=== PATIENT | female | born 2000 | race Hispanic/Latino ===

== ENCOUNTER 2018-01-10 16:43 | Emergency (ER) | payer OTHER, SELFPAY ==
[2018-01-10] MEDS ORDERED: NA CHLORIDE 0.9% 1,000 ML ONE ×2 (17:29→21:49)
[2018-01-10] MEDS ORDERED: FENTANYL CITR 100 MCG/2 ML ONE ×2 (17:43→19:34)
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
[2018-01-10 18:42] LABS: ALT/SGPT 49 U/L (12-78); AST/SGOT 42 U/L (15-37); Alkaline Phosphatase 126 U/L (45-117); BUN Blood Urea Nitrogen 12 mg/dL (7-18); Bicarbonate 29 mmol/L (21-32); Bilirubin Direct 0.2 mg/dL (0-0.2); Bilirubin Total 0.7 mg/dL (0.2-1.0); Glucose Level 143 mg/dL (74-106); Lipase 410 U/L (73-393); Potassium 3.2 mmol/L (3.5-5.1); Protein, Total 7.6 g/dL (6.4-8.2); Sodium Level 133 mmol/L (136-145)
[2018-01-10 18:56] LABS: Absolute Lymphocytes (CBC) 1.4 K/uL (0.7-4.9); Absolute Monocytes 1.2 K/uL (0.1-1.3); Absolute Neutrophil 12.1 K/uL (1.8-8.0); Basophils % 0.2 % (0-1.3); Eosinophils % 0.2 % (0-4.4); Hematocrit 31.3 % (36.0-45.0); Lymphocytes % 9.3 % (15.3-44.8); MCV 88.7 fL (80-100); MPV 7.1 fL (7.6-11.3); Monocytes % 8.2 % (3.3-12.3); RBC Red Blood Cell Count 3.53 M/uL (3.86-4.86)
[2018-01-10] MEDS ORDERED: NS KCL 20MEQ 1,000 ML IV ONE (19:34)
[2018-01-10] MEDS ORDERED: PIPER/TAZO/NS 3.375gm 3.375 GM/100 ML BAG ONE (19:34)
[2018-01-10 19:42] LABS: Blood Morphology Comment NOT SEEN (NOT SEEN); Platelet Estimate INCR; Urine White Blood Cell Casts OK
[2018-01-10 20:16] LABS: Urine Bacteria <20 /HPF (<20); Urine Culture Reflex Order NOT NEEDED
[2018-01-10] MEDS ORDERED: LIDOCAINE VISCOUS 2% SOLN 15 ML UDC ONE (20:18)
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
[2018-01-10] MEDS ORDERED: ONDANSETRON 4 MG/2 ML VIAL ONE (20:35)
[2018-01-10 20:41] LABS: Urine Blood 2+ (NEG); Urine Glucose NEGATIVE (NEG); Urine Specific Gravity <1.005 (1.005-1.030)
[2018-01-10 20:42] LABS: Urine Protein TRACE (NEG); Urine pH 6.5 (5.0-7.0)
== END 2018-01-10 21:54 | disposition short-term general hospital (02) ==
LOC: ER 16:43
DX: K56.699 Other intestinal obstruction unspecified as to partial versus complete obstruction (principal); K63.1 Perforation of intestine (nontraumatic); W22.8XXA Striking against or struck by other objects, initial encounter; Y93.9 Activity, unspecified; Y92.9 Unspecified place or not applicable
CPT/HCPCS: 36415; 71260; 74177; 80048; 80076; 81003; 81015; 83605; 83690; 84145; 84703; 85025; 86850; 86900; 86901; 87040; 87077; 87086; 87088; 87186; 99284; J2405; J2543; J3010; J7030; Q9967

== ENCOUNTER 2020-09-01 20:41 | Emergency (ER) | payer OTHER, SELFPAY ==
--- OUTSIDE RECORDS SUMMARY | 2020-09-01 20:43 | XMS REPORT | Continuity of Care Document ---
:2000 Author Organization [facility] t Address [address] [place] [address] Care Team Providers Name Role Phone Priscilla Brice Attending Clinician [phone] Problems This patient has no known problems. Allergies, Adverse Reactions, Alerts This patient has no known allergies or adverse reactions. Medications This patient has no known medications. Procedures This patient has no known procedures. Encounters Start End Encounter Admission Attending Care Care Encounter Source Date/Time Date/Time Type Type Clinicians Facility Department ID 2020-08-27 2020-08-27 Telephone SHARON Vasquez [id number] 00:00:00 00:00:00 Priscilla Gray PERSONAL PROPERTY ASSESSOR [id number] [facility] [id number] MATERNAL [id number] & CHILD [address] [place] [address] Results This patient has no known results.
[2020-09-01 21:33] LABS: Urine Blood 1+ (Negative); Urine Glucose Negative (Negative); Urine Protein Negative (Negative); Urine Specific Gravity >=1.030 (1.005-1.030)
[2020-09-01 21:42] LABS: Absolute Lymphocytes (CBC) 1.6 K/uL (0.7-4.9); Basophils % 0.4 % (0-1.3); Hematocrit 40.2 % (36.0-45.0); Lymphocytes % 19.9 % (15.3-44.8); MPV 7.6 fL (7.6-11.3)
[2020-09-01 21:57] LABS: Urine Specific Gravity/Preg >1.030 (1.005-1.030)
[2020-09-01 22:23] LABS: BUN Blood Urea Nitrogen 6 mg/dL (7-18); Bicarbonate 26 mmol/L (21-32); Glucose Level 104 mg/dL (74-106); HCG, Quantitative 33070 mIU/mL (1-3); Potassium 3.4 mmol/L (3.5-5.1); Sodium Level 137 mmol/L (136-145)
[2020-09-01] MEDS ORDERED: NA CHLORIDE 0.9% 1,000 ML ONE (22:29)
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
[2020-09-01 23:30] VITALS: TEMP 99.2; O2SAT 100
[2020-09-01 23:31] VITALS: BP 113/76
--- NOTE | 2020-09-02 08:17 | RAD REPORT ---
EXAM DESCRIPTION: US - Transvaginal OB - 09/01/2020 11:01 pm CLINICAL HISTORY: VAGINAL BLEEDING, Preliminary findings provided at the time of the study COMPARISON: No comparisons FINDINGS: Single normal shaped intrauterine gestational sac identified. Cardiac activity seen at a r ate of 122 BPM. pole is identified with a crown-rump length corresponding to 7 weeks 1 day. Sma ll subchorionic hemorrhage is present. The crescent-shaped hemorrhage collection is grossly 1.5 x 1.1 x 0.4 cm. This size is not considered clinically significant. Cervical canal is closed. No blood or fluid in the cul de sac. Right ovary contains a 1.9 centimeter anechoic thin-walled cyst. No suspicious right ovarian or right adnexal mass. Nonvisualization of the left ovary due to bowel. No left adnexal mass. IMPRESSION: Single 7 week 1 day IUP. Calculated JILLIAN is 04/19/2021. Small non clinically significant 1.5 cm crescent-shaped subchorionic bleed.
== END 2020-09-01 23:17 | disposition home or self-care (01) ==
LOC: ER 20:41
DX: O20.0 Threatened abortion (principal); Z3A.01 Less than 8 weeks gestation of pregnancy
CPT/HCPCS: 36415; 76817; 80048; 81003; 81025; 84702; 85025; 86901; 96360; 99284; J7030

== ENCOUNTER 2020-10-03 22:31 | Emergency (ER) | payer OTHER ==
--- OUTSIDE RECORDS SUMMARY | 2020-10-03 22:34 | XMS REPORT | Continuity of Care Document ---
:2000 Author Organization [facility] t Address [address] [place] [address] Care Team Providers Name Role Phone Priscilla Brice Attending Clinician [phone] Problems This patient has no known problems. Allergies, Adverse Reactions, Alerts This patient has no known allergies or adverse reactions. Medications This patient has no known medications. Procedures This patient has no known procedures. Encounters Start End Encounter Admission Attending Care Care Encounter Source Date/Time Date/Time Type Type Clinicians Facility Department ID 2020-10-02 2020-10-02 Telephone SHARON Vasquez [id number] 00:00:00 00:00:00 Priscilla Gray [employer] [id number] [facility] [id number] MATERNAL [id number] & CHILD [address] [place] [address] Results This patient has no known results.
[2020-10-03 23:41] LABS: Absolute Lymphocytes (CBC) 2.1 K/uL (0.7-4.9); Basophils % 0.6 % (0-1.3); Hematocrit 40.7 % (36.0-45.0); Lymphocytes % 33.7 % (15.3-44.8); RBC Red Blood Cell Count 4.51 M/uL (3.86-4.86)
[2020-10-03 23:58] LABS: ALT/SGPT 16 U/L (12-78); AST/SGOT 12 U/L (15-37); Albumin 3.6 g/dL (3.4-5.0); Alkaline Phosphatase 89 U/L (45-117); BUN Blood Urea Nitrogen 10 mg/dL (7-18); Bicarbonate 27 mmol/L (21-32); Bilirubin Direct < 0.1 mg/dL (0-0.2); Bilirubin Total 0.2 mg/dL (0.2-1.0); Glucose Level 101 mg/dL (74-106); Lipase 117 U/L (73-393); Protein, Total 8.1 g/dL (6.4-8.2); Sodium Level 142 mmol/L (136-145)
[2020-10-04] MEDS ORDERED: NA CHLORIDE 0.9% 1,000 ML ONE (00:07)
[2020-10-04] MEDS ORDERED: MORPHINE 4 MG/ML SYR ONE ×2 (00:07→01:35)
[2020-10-04] MEDS ORDERED: ONDANSETRON 4 MG/2 ML VIAL ONE (00:07)
[2020-10-04 00:16] LABS: Urine Blood Trace-intact (Negative); Urine Glucose Negative (Negative); Urine Protein Negative (Negative); Urine Specific Gravity 1.025 (1.005-1.030); Urine pH 6.5 (5.0-7.0)
[2020-10-04 00:25] LABS: Urine Specific Gravity/Preg 1.025 (1.005-1.030)
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
[2020-10-04 02:06] VITALS: TEMP 98.6
[2020-10-04 02:09] VITALS: BP 129/94; O2SAT 97
--- NOTE | 2020-10-05 21:19 | RAD REPORT ---
EXAM DESCRIPTION: CT - Abdomen Pelvis W Contrast - 10/04/2020 6:24 am CLINICAL HISTORY: ABD PAIN. COMPARISON: CT of the chest, abdomen, and pelvis from January 10, 2018. TECHNIQUE: CT of the abdomen and pelvis was performed following intravenous administration of iodina mark contrast. Arterial phase images through the abdomen, and portal venous phase images through the a bdomen and pelvis were obtained. Oral contrast was not administered. Axial, coronal, and sagittal sof t tissue window reconstructions were created and sent to PACS. This exam was performed according to our departmental dose-optimization program, which includes autom ated exposure control, adjustment of the mA and/or kV according to patient size and/or use of iterati ve reconstruction technique. FINDINGS: Thoracic: No significant abnormality. Hepatobiliary: Hepatomegaly, measuring 20.4 cm in length. No concerning hepatic lesion identified. Th e hepatic and portal veins are patent. The gallbladder is unremarkable. No biliary ductal dilatation. Pancreas: Unremarkable. Spleen: Unremarkable. Gastrointestinal: Unremarkable appearance of a small bowel anastomosis in the right mid abdomen. No e vidence of bowel obstruction or perienteric inflammation. The appendix is normal. Adrenals: No abnormality identified in either adrenal gland. Renal: Small multifocal bilateral chronic renal cortical defects, similar to prior. No concerning par enchymal lesion in either kidney. No hydronephrosis or urolithiasis. Bladder/Reproductive: Unremarkable appearance of the urinary bladder by CT technique. Unremarkable CT appearance of the uterus and ovaries. Vascular/Lymphatics: No lymphadenopathy identified by CT size criteria. Abdominal aorta is normal in caliber. The major visceral vessels are patent. Musculoskeletal: No concerning osseous lesion identified. Thoracolumbar posterior fusion hardware. Tr ansitional lumbosacral vertebral body. Fluid / peritoneum: No significant free fluid. No free intraperitoneal air identified. IMPRESSION 1. No acute abnormality identified in the abdomen or pelvis by CT. 2. Unremarkable appearance of a small bowel anastomosis in the right mid abdomen. 3. Small chronic bilateral renal cortical defects. 4. Nonspecific hepatomegaly. Electronically signed by: Corry Hebert MD 10/04/2020 12:59 AM CDT Due to temporary technical issues with the PACS/Fluency reporting system, reports are being signed by the in house radiologists without review as a courtesy to insure prompt reporting. The interpreting radiologist is fully responsible for the content of the report.
== END 2020-10-04 01:41 | disposition home or self-care (01) ==
LOC: ER 22:31
DX: R10.12 Left upper quadrant pain (principal)
CPT/HCPCS: 85025; 80048; 36415; 81025; 80076; 81003; 83690; 74177; Q9967; 96374; 96375; 99284

== ENCOUNTER 2020-12-09 01:41 | Emergency (ER) | payer OTHER ==
--- OUTSIDE RECORDS SUMMARY | 2020-12-09 01:44 | XMS REPORT | Continuity of Care Document ---
:2000 Author Organization [facility] t Address [address] [place] [address] Care Team Providers Name Role Phone Amanda Yates Attending Clinician Problems This patient has no known problems. Allergies, Adverse Reactions, Alerts This patient has no known allergies or adverse reactions. Medications This patient has no known medications. Procedures This patient has no known procedures. Encounters Start End Encounter Admission Attending Care Care Encounter Source Date/Time Date/Time Type Type Clinicians Facility Department ID 2020-11-25 2020-11-25 Office SHARON Dyer [id number] 11:48:14 12:04:05 Visit Amanda Ricardo CREDIT SUPPORT SPECIALIST [id number] [facility] [id number] MATERNAL [id number] & CHILD [address] [place] [address] Results This patient has no known results.
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
[2020-12-09 04:50] VITALS: BP 112/81; TEMP 98.2; O2SAT 99
--- NOTE | 2020-12-09 08:20 | RAD REPORT ---
EXAM DESCRIPTION: Christen Single View12/09/2020 2:28 am CLINICAL HISTORY: Cough COMPARISON: none FINDINGS: The lungs appear clear of acute infiltrate. The heart is normal size IMPRESSION: No acute abnormalities displayed
== END 2020-12-09 04:45 | disposition home or self-care (01) ==
LOC: ER 01:41
DX: U07.1 COVID-19 (principal)
CPT/HCPCS: 71045; 99283; U0003

== ENCOUNTER 2021-04-13 16:12 | Inpatient (IN) | payer OTHER ==
--- OUTSIDE RECORDS SUMMARY | 2021-04-13 16:14 | XMS REPORT | Continuity of Care Document ---
:2000 Author Organization [facility] t Address [address] [place] [address] Care Team Providers Name Role Phone AMANDA PARKER Primary Care Physician Unavailable Mohan JIMENEZ MD Attending Clinician Davion Yates Attending Clinician Pierre DINERO Attending Clinician Unavailable Pierre DINERO Admitting Clinician Unavailable Payers Payer Name Policy Type Policy Number Effective Date Expiration Date S ource Advance Directives Directive Decision Effective Termination Comments Source Date Date Healthcare Agents on N/A [facility] FileNameRelationWood County HospitalthMy[facility] Agent Medical RelationshipCommunicationCritical Access Hospital EdilmadellaINTEGR[facility] Care [phone] (Home) [facility]Other[facility] [phone] (Mobile) Nadya FleminggenevieveAuntSecond Alternate Health Care [phone] (Mobile) Problems Condition Condition Condition Status Onset Resolution Last Treating Co mments Source Name Details Category Date Date Treatment Clinician Date Nexplanon Nexplanon Disease Active Uni vers in place in place 9 ity of 00:00: [address] Branch Abnormal Abnormal Disease Active Overview: Un shobha maternal maternal 5-12 Formattin ity of glucose glucose 00:00: g of this [place] tolerance, tolerance, 00 note Me dical antepartum antepartum might be Branch different from the original. Failed , pending 3hr gtt Susceptibl Susceptibl Disease Active Overview : Univers e to e to 5-12 Formattin ity of varicella varicella 00:00: [place] this [place] (non-immun (non-immun 00 note Me dical e), e), might be Branch currently currently different from the original. Address pp Obesity in Obesity in Disease Active 2019-04 U nivers 0-05 ity of 00:00: [place] 00 Medical Branch History of History of Disease Active U nivers ventral ventral 2-24 ity of hernia hernia 00:00: [place] repair repair 00 Medical Branch History of History of Disease Active U nivers lumbar lumbar 1-17 ity of surgery surgery 00:00: [place] 00 Medical Branch Three Three Disease Active Univers column column 9-13 ity of fracture fracture 00:00: [place] of lumbar of lumbar 00 Medi suleiman vertebra vertebra Branch Allergies, Adverse Reactions, Alerts Allergy Allergy Status Severity Reaction(s) Onset Inactive Treating Comm ents Source Name Type Date Date Clinician NO KNOWN Drug Active Univers ALLERGIE Class ity of S [facility] Social History Social Habit Start Date Stop Date Quantity Comments Source Exposure to Not sure [facility] SARS-CoV-2 (event) Medica l Branch Alcohol intake 2021-01-05 2021-01-05 0 /d [facility] 00:00:00 00:00:00 Medical Branch Sex Assigned At [birth year] [facility] 00:00:00 00:00:00 Medical Branch Smoking Status Start Date Stop Date Source Never smoker [facility] Medications Ordered Filled Start Stop Current Ordering Indication Dosage Frequency Signature Comments Components Source Medication Medication Date Date Medication? Clinician (SIG) Name Name lidocaine 2020-04- No [id number] 12mL 12 mL, U nivers 1% (PF) 06-05 Infiltrati ity o f (XYLOCAINE) 18:00: 16:48 on, ONCE, [place] injection 00 :00 1 dose, On Medi suleiman 12 mL Sat Branch 04/04/21 at 1200, Routine iohexoL 2020-04- No [id number] 15mL 15 mL, Uni vers (OMNIPAQUE 2-18 12-18 Intra-beto it y of 300-50 mL)) 17:00: 16:48 cular, [place] as injection 00 :00 ONCE, 1 Medical 15 mL dose, On Branch 04/04/21 at 1100, Routine metroNIDAZO Yes [id number] 500mg Take 1 Univers LE 500 mg 9-22 tablet by ity o f tablet 00:00: mouth 2 [place] 00 (two) Medical times Branch daily. azelastine Yes [id number] 1{spray Use 1 Univers 137 mcg 6-30 } [place] in ity of (0.1 %) 00:00: each [place] nasal spray 00 nostril 2 Med ical (two) Branch times daily. Use in each nostril as directed benzonatate Yes [id number] 100mg Take 1 Univers (TESSALON 6-30 capsule by ity of [place]) 100 00:00: mouth 3 [place] mg capsule 00 (three) Medica l times Branch daily. TRI-SPRINTE Yes 1{tbl} Take 1 Un shobha C 6-02 tablet by ity of 0.18/0.215/ 00:00: mouth [place] 0.25 mg-35 00 daily. Medical mcg (28) Branch per tablet Immunizations Ordered Immunization Filled Immunization Date Status Commen ts Source Name Name Influenza Virus 2020-01-21 Completed Universit y of Vaccine Quad .5 mL 00:00:00 [facility] IM 6+ MO Branch TDAP 2018-09-26 Completed University 00:00:00 [facility] Influenza Virus 2018-04-21 Completed Universit y of Vaccine Quad .5 mL 00:00:00 [facility] IM 6+ MO Branch HPV9 2016-02-13 Completed University 00:00:00 [facility] HPV 2015-01-17 Completed University 00:00:00 [facility] Meningococcal 2015-01-17 Completed University of Vaccine 00:00:00 [facility] Varicella 2011-03-01 Completed University (varivax)(chicken 00:00:00 [place] M edical pox) Branch HPV 2009-11-17 Completed University 00:00:00 [facility] Meningococcal 2009-11-17 Completed University of Vaccine 00:00:00 [facility] TDAP 2009-11-17 Completed University of 00:00:00 [facility] DTAP 2002-04-05 Completed University of 00:00:00 [facility] MMR 2002-04-05 Completed University of 00:00:00 [facility] Polio (IPV/OPV) 2002-04-05 Completed Universit y of 00:00:00 [facility] DTAP 2001-11-28 Completed University of 00:00:00 [facility] MMR 2001-11-28 Completed University of 00:00:00 [facility] Polio (IPV/OPV) 2001-11-28 Completed Universit y of 00:00:00 [facility] Varicella 2001-11-28 Completed University of (varivax)(chicken 00:00:00 [facility] [place] [facility] edical pox) Branch Varicella 2001-02-19 Completed University of (varivax)(chicken 00:00:00 [facility] [place] [facility] edical pox) Branch DTAP 1999-11-18 Completed University of 00:00:00 [facility] HIB 4 Dose Schedule 1999-11-18 Completed Unive rsity of 00:00:00 [facility] Hep B, Adol or Pedi 1999-11-18 Completed Unive rsity of Dosage 00:00:00 [facility] Polio (IPV/OPV) 1999-11-18 Completed Universit y of 00:00:00 [facility] DTAP 2000 Completed University of 00:00:00 [facility] HIB 4 Dose Schedule 1998 Completed Unive rsity of 00:00:00 [facility] Hep B, Adol or Pedi 2000 Completed Unive rsity of Dosage 00:00:00 [facility] Polio (IPV/OPV) 2000 Completed Universit y of 00:00:00 [facility] Hep B, Adol or Pedi 1998 Completed Unive rsity of Dosage 00:00:00 [facility] Procedures Procedure Date / Time Performed Performing Clinician Soursarah e [place] ARTHROGRAM HIP LEFT 2021-04-04 16:20:00 Mic Preston rsity of [facility] Encounters Start End Encounter Admission Attending Care Care Encounter Source Date/Time Date/Time Type Type Clinicians Facility Department ID 2021-04-04 2021-04-04 [facility] [id number] Univers 08:42:06 08:42:06 Encounter Mic SPECIALTY [id number] [facility] [id number] [facility] AT [id number] [place] gilberto JANE 3 [facility] 2020-11-25 2020-11-25 [facility] [id number] 11:48:14 12:04:05 Visit 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
[2021-04-13 20:30] LABS: Urine Blood Trace-intact (Negative); Urine Glucose Negative (Negative); Urine Protein Negative (Negative); Urine Specific Gravity 1.025 (1.005-1.030)
[2021-04-13 20:34] LABS: Absolute Lymphocytes (CBC) 1.5 K/uL (0.7-4.9); Hematocrit 44.3 % (36.0-45.0); Lymphocytes % 18.4 % (15.3-44.8); MPV 7.5 fL (7.6-11.3); RBC Red Blood Cell Count 4.93 M/uL (3.86-4.86)
[2021-04-13 20:55] LABS: ALT/SGPT 16 U/L (12-78); Alkaline Phosphatase 111 U/L (45-117); BUN Blood Urea Nitrogen 8 mg/dL (7-18); Bicarbonate 27 mmol/L (21-32); Glucose Level 100 mg/dL (74-106); Sodium Level 138 mmol/L (136-145)
[2021-04-13 21:16] LABS: AST/SGOT 10 U/L (15-37); Bilirubin Direct 0.1 mg/dL (0-0.2); Bilirubin Total 0.5 mg/dL (0.2-1.0); Lipase 66 U/L (73-393); Protein, Total 8.2 g/dL (6.4-8.2)
[2021-04-13 21:21] LABS: Urine Bacteria >50 /HPF (<20)
[2021-04-13 21:22] LABS: Calcium Oxalate Crystals- Ur FEW (NONE SEEN); Urine Amorphous Sediment 1+ /HPF (NONE SEEN); Urine Mucus HEAVY /HPF (NONE SEEN)
[2021-04-13] MEDS ORDERED: ONDANSETRON 4 MG/2 ML VIAL ONE (21:32)
[2021-04-13] MEDS ORDERED: FAMOTIDINE 20 MG/2 ML VIAL IV ONE (21:33)
[2021-04-13] MEDS ORDERED: NA CHLORIDE 0.9% 1,000 ML ONE (21:33)
[2021-04-13] MEDS ORDERED: DICYCLOMINE HCL 10 MG CAP ONE (21:33)
[2021-04-13 21:34] LABS: Urine Specific Gravity/Preg 1.025 (1.005-1.030)
--- NOTE | 2021-04-13 21:44 | RAD REPORT ---
EXAM DESCRIPTION: CTAbdomen Pelvis W Contrast - 04/13/2021 9:27 pm CLINICAL HISTORY: Abdominal pain. ABD PAIN COMPARISON: Abdomen Pelvis W Contrast dated 10/04/2020 TECHNIQUE: Biphasic CT imaging of the abdomen and pelvis was performed with 100 ml non-ionic IV cont rast. All CT scans are performed using dose optimization technique as appropriate and may include automated exposure control or mA/KV adjustment according to patient size. FINDINGS: The lung bases are clear. The liver, spleen, pancreas, adrenal glands and kidneys are within normal limits. Moderately dilated small bowel loops in the left upper and central abdomen compatible with moderate m echanical small-bowel obstruction. Point of transition appears to be present in lower left abdomen (i mage 51/102) which may be related to adhesions. The appendix is normal. No evidence of free air. No e vidence of significant lymphadenopathy. No suspicious bony findings. Hardware is present in the lumbar spine. IMPRESSION: Moderate mechanical small-bowel obstruction is present.
[2021-04-13] MEDS ORDERED: MORPHINE 4 MG/ML SYR ONE (21:56)
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
--- NOTE | 2021-04-13 23:28 | P.HP ---
Certification for Inpatient Patient admitted to: Inpatient With expected LOS: <2 Midnights Patient will require the following post-hospital care: None Practitioner: I am a practitioner with admitting privileges, knowledge of patient current condition, hospital course, and medical plan of care. Services: Services provided to patient in accordance with Admission requirements found in Title 42 Section 412.3 of the Code of Federal Regulations <Parveen Brand - Last Filed: 04/13/21 23:23> Patient History Date of Service: 04/13/21 Reason for admission: SBO History of Present Illness: Ms. Rust is a 21 yo F with history of small bowel reconstruction surgery and hernia repair presents with 3 days of intermittent abdominal cramps, nausea and vomiting. She says last night the pain markedly increased and she could barely walk. She says she has been slightly more constipated, and her last bowel movement was last night. Pain is worse with belching, and eating. She last ate this morning. CT AP IMPRESSION: Moderate mechanical small-bowel obstruction is present. - Past Medical/Surgical History Diabetic: No Past Medical History: Patient denies medical history -: small bowel reconstruction -: hernia repair -: spinal surgery Psychosocial/ Personal History: one son - Family History Family History: Reviewed- Non-Contributory - Social History Smoking Status: Never smoker Alcohol use: Yes CD- Drugs: No Caffeine use: No Place of Residence: Home <Parveen Brand - Last Filed: 04/13/21 23:23> Date of Service: 04/13/21 <Aryan Hooks - Last Filed: 04/15/21 10:34> Allergies No Known Allergies Allergy (Unverified 09/29/15 00:25) Review of Systems 10-point ROS is otherwise unremarkable General: Unremarkable Eyes: Unremarkable ENT: Unremarkable Respiratory: Unremarkable Cardiovascular: Unremarkable Gastrointestinal: Nausea, Vomiting, Abdominal Pain Genitourinary: Unremarkable Musculoskeletal: Unremarkable Integumentary: Unremarkable Neurological: Unremarkable Lymphatics: Unremarkable <Parveen Brand - Last Filed: 04/13/21 23:23> Physical Examination - Physical Exam General: Alert, In no apparent distress HEENT: Atraumatic, PERRLA, Mucous membr. moist/pink, EOMI, Sclerae nonicteric Neck: Supple, 2+ carotid pulse no bruit, No LAD, Without JVD or thyroid abnormality Respiratory: Clear to auscultation bilaterally, Normal air movement Cardiovascular: Regular rate/rhythm, Normal S1 S2 Gastrointestinal: Normal bowel sounds, Tenderness Musculoskeletal: No tenderness Integumentary: No rashes Neurological: Normal gait, Normal speech, Normal strength at 5/5 x4 extr, Normal tone, Normal affect Lymphatics: No axilla or inguinal lymphadenopathy - Studies Laboratory Data (last 24 hrs) 04/13/21 20:20: WBC 8.10, Hgb 14.8, Hct 44.3, Plt Count 325 04/13/21 20:20: Sodium 138, Potassium 4.0, BUN 8, Creatinine 0.65, Glucose 100, Total Bilirubin 0.5, AST 10 L, ALT 16, Alkaline Phosphatase 111, Lipase 66 L <Parveen Brand - Last Filed: 04/13/21 23:23> Assessment and Plan - Problems (Diagnosis) (1) SBO (small bowel obstruction) Current Visit: Yes Status: Acute - Plan surgery consulted NPO, continue IV fluids antiemetics and pain management as needed continue IV zosyn DVT ppx Discharge Plan: Home Plan to discharge in: 48 Hours - Advance Directives Does patient have a Living Will: No Does patient have a Durable POA for Healthcare: No - Code Status/Comfort Care Code Status Assessed: Yes (full code ) Critical Care: No Time Spent Managing Pts Care (In Minutes): 70 <Parveen Brand - Last Filed: 04/13/21 23:23> - Problems (Diagnosis) (1) History of resection of small bowel Current Visit: Yes Status: Acute (2) SBO (small bowel obstruction) Current Visit: Yes Status: Acute <Aryan Hooks - Last Filed: 04/15/21 10:34> Date of Service: 04/13/21 Subjective Agree with HPI as mentioned above Review of Systems 10-point ROS is otherwise unremarkable Physical Examination - Vital Signs Reviewed - Physical Exam General: Alert, In no apparent distress, Oriented x3 HEENT: Atraumatic, PERRLA, EOMI Neck: Supple, JVD not distended Respiratory: Clear to auscultation bilaterally, Normal air movement Cardiovascular: Regular rate/rhythm, Normal S1 S2 Gastrointestinal: Hypoactive, No tenderness, No masses, No guarding, Rebound Musculoskeletal: No clubbing, No swelling, No tenderness Integumentary: No rashes Neurological: Normal speech, Sensation intact, Cranial nerves 3-12 intact, Normal affect Lymphatics: No axilla or inguinal lymphadenopathy - Studies Medications List Reviewed: Yes Assessment & Plan - Problems (Diagnosis) (1) History of resection of small bowel Current Visit: Yes Status: Acute (2) SBO (small bowel obstruction) Current Visit: Yes Status: Acute - Plan Plan of care as mentioned below: 1. NPO 2. IV fluids 3. Pain control 4. Surgery consultation appreciated 5. Monitor labs 6. GI and DVT prophylaxis Discharge Plan: Home Plan to discharge in: Greater than 2 days - Advance Directives Does patient have a Living Will: No Does patient have a Durable POA for Healthcare: No - Code Status/Comfort Care Code Status Assessed: Yes Code Status: Full Code Critical Care: No Time Spent Managing PTS Care (In Minutes): 35 <Aryan Hooks - Last Filed: 04/15/21 10:34>
[2021-04-14] MEDS ORDERED: PIPERACIL/TAZO 3.375 GM VIAL IV ONE ×3 (00:17→16:56)
[2021-04-14] MEDS ORDERED: NA CHLORIDE 0.9% 100 ML ONE ×3 (00:18→16:57)
[2021-04-14] MEDS: NA CHLORIDE 0.9% 1,000 ML IV SCH ×2 (08:02→22:03)
[2021-04-14] MEDS ORDERED: ONDANSETRON 4 MG/2 ML VIAL IV PRN (08:02)
[2021-04-14 08:50] LABS: Absolute Lymphocytes (CBC) 1.1 K/uL (0.7-4.9); Hematocrit 40.8 % (36.0-45.0); Lymphocytes % 14.2 % (15.3-44.8); MPV 7.4 fL (7.6-11.3); RBC Red Blood Cell Count 4.51 M/uL (3.86-4.86)
[2021-04-14] MEDS ORDERED: NA CHLORIDE 0.9% 1,000 ML ONE (09:00)
[2021-04-14] MEDS: PIPER TAZO 3.375 GM in NA CHLORIDE 0.9% 100 ML IV SCH ×2 (09:00→16:57)
[2021-04-14] MEDS ORDERED: NA CHLORIDE 0.9% 0 ML ONE (09:01)
[2021-04-14 09:14] LABS: ALT/SGPT 13 U/L (12-78); AST/SGOT 7 U/L (15-37); Albumin 3.3 g/dL (3.4-5.0); Alkaline Phosphatase 95 U/L (45-117); BUN Blood Urea Nitrogen 8 mg/dL (7-18); Bicarbonate 25 mmol/L (21-32); Bilirubin Total 0.5 mg/dL (0.2-1.0); Glucose Level 91 mg/dL (74-106); Magnesium 2.2 mg/dL (1.8-2.4); Phosphorus 3.5 mg/dL (2.5-4.9); Potassium 3.9 mmol/L (3.5-5.1); Protein, Total 6.9 g/dL (6.4-8.2); Sodium Level 139 mmol/L (136-145)
[2021-04-14] MEDS ORDERED: PIPER TAZO 3.375 GM in NA CHLORIDE 0.9% 100 ML IV SCH (11:00)
[2021-04-14] MEDS ORDERED: MORPHINE 2 MG/ML SYR ONE (11:42)
[2021-04-14] MEDS ORDERED: ONDANSETRON 4 MG/2 ML VIAL ONE (11:42)
[2021-04-14] MEDS: MORPHINE 2 MG/ML SYR IV PRN ×2 (11:50→22:04)
[2021-04-15] MEDS ORDERED: PIPERACIL/TAZO 3.375 GM VIAL IV ONE ×2 (00:19→10:17)
[2021-04-15] MEDS ORDERED: NA CHLORIDE 0.9% 100 ML ONE (00:30)
[2021-04-15] MEDS: PIPER TAZO 3.375 GM in NA CHLORIDE 0.9% 100 ML IV SCH ×3 (00:33→17:14)
[2021-04-15 01:12] VITALS: BMI 33.5
[2021-04-15] MEDS: NA CHLORIDE 0.9% 1,000 ML IV SCH ×4 (04:02→21:15)
--- NOTE | 2021-04-15 10:34 | P.PN ---
Subjective Date of Service: 04/14/21 Patient continues to improve with no new complaints. Clinical symptoms are improving. She is having flatus. No nausea vomiting. If she continues to improve then we will start ice chips in the morning. Extensive abdominal surgery historically so will keep her NPO for now. Review of Systems 10-point ROS is otherwise unremarkable Physical Examination - Vital Signs Temperature: 97.6 F Blood Pressure: 105/56 Pulse: 81 Respirations: 20 Pulse Ox (%): 99 - Physical Exam General: Alert, In no apparent distress, Oriented x3 HEENT: Atraumatic, PERRLA, EOMI Neck: Supple, JVD not distended Respiratory: Clear to auscultation bilaterally, Normal air movement Cardiovascular: Regular rate/rhythm, Normal S1 S2 Gastrointestinal: Hypoactive, No tenderness, No masses, No guarding, Rebound Musculoskeletal: No clubbing, No swelling, No tenderness Integumentary: No rashes Neurological: Normal speech, Sensation intact, Cranial nerves 3-12 intact, Normal affect Lymphatics: No axilla or inguinal lymphadenopathy - Studies Medications List Reviewed: Yes Assessment & Plan - Problems (Diagnosis) (1) History of resection of small bowel Current Visit: Yes Status: Acute (2) SBO (small bowel obstruction) Current Visit: Yes Status: Acute - Plan Plan: 1. NPO 2. IV fluids 3. Pain control 4. Surgery consultation appreciated 5. Monitor labs 6. GI and DVT prophylaxis Discharge Plan: Home Plan to discharge in: Greater than 2 days - Advance Directives Does patient have a Living Will: No Does patient have a Durable POA for Healthcare: No - Code Status/Comfort Care Code Status Assessed: Yes Code Status: Full Code Critical Care: No Time Spent Managing PTS Care (In Minutes): 35
--- NOTE | 2021-04-15 10:38 | P.PN ---
Date of Service: 04/15/21 Subjective Will go ahead and start ice chips at this time. Review of Systems 10-point ROS is otherwise unremarkable Physical Examination - Vital Signs Reviewed - Physical Exam General: Alert, In no apparent distress, Oriented x3 Respiratory: Clear to auscultation bilaterally, Normal air movement Cardiovascular: Regular rate/rhythm, Normal S1 S2 Gastrointestinal: Hypoactive, No tenderness, No masses, No guarding, Rebound Musculoskeletal: No clubbing, No swelling, No tenderness Neurological: Normal speech, Sensation intact, Cranial nerves 3-12 intact, Normal affect Assessment & Plan - Problems (Diagnosis) (1) History of resection of small bowel Current Visit: Yes Status: Acute (2) SBO (small bowel obstruction) Current Visit: Yes Status: Acute - Plan Continue with plan of care as mentioned below: 1. Continue with ice chips 2. IV fluids 3. Pain control 4. Surgery consultation appreciated 5. Monitor labs 6. GI and DVT prophylaxis Discharge Plan: Home Plan to discharge in: Greater than 2 days - Advance Directives Does patient have a Living Will: No Does patient have a Durable POA for Healthcare: No - Code Status/Comfort Care Code Status Assessed: Yes Code Status: Full Code Critical Care: No Time Spent Managing PTS Care (In Minutes): 35
[2021-04-15 15:06] LABS: Urine Appearance CLEAR (Clear); Urine Bilirubin NEGATIVE (Negative); Urine Blood TRACE (Negative); Urine Color YELLOW (Yellow); Urine Glucose NEGATIVE (Negative); Urine Protein NEGATIVE (Negative); Urine Specific Gravity 1.025 (1.005-1.030)
[2021-04-15 15:49] LABS: Urine Bacteria <20 /HPF (<20); Urine Microscopic Reflex ORDER UMIC; Urine RBC <5 /HPF (NONE SEEN)
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
[2021-04-16] MEDS: NA CHLORIDE 0.9% 1,000 ML IV SCH ×3 (00:02→10:02)
[2021-04-16] MEDS: PIPER TAZO 3.375 GM in NA CHLORIDE 0.9% 100 ML IV SCH ×3 (00:16→16:02)
[2021-04-16 16:21] VITALS: BP 104/61; TEMP 97.6
[2021-04-16 16:50] VITALS: O2SAT 98
--- NOTE | 2021-04-16 16:56 | P.DS ---
Discharge Date: 04/16/21 Disposition: ROUTINE DISCHARGE Discharge Condition: GOOD Reason for Admission: SBO - Problems (1) History of resection of small bowel Current Visit: Yes Status: Acute (2) SBO (small bowel obstruction) Current Visit: Yes Status: Acute Brief History of Present Illness: Ms. Rust is a 21 yo F with history of small bowel reconstruction surgery and hernia repair presents with 3 days of intermittent abdominal cramps, nausea and vomiting. She says last night the pain markedly increased and she could barely walk. She says she has been slightly more constipated, and her last bowel movement was last night. Pain is worse with belching, and eating. She last ate this morning. Hospital Course: Patient has done well during hospital stay. Patient is tolerating diet. Patient is had multiple bowel movements. Patient is clinically improving. At this time, patient is stable for discharge home. Vital Signs/Physical Exam: Temp Pulse Resp BP Pulse Ox 97.6 F 70 16 104/61 98 04/16/21 16:00 04/16/21 16:00 04/16/21 16:00 04/16/21 16:00 04/16/21 16:00 General: Alert, In no apparent distress, Oriented x3 Laboratory Data at Discharge: WBC 7.80 K/uL (4.3-10.9) 04/14/21 08:32 Hgb 13.5 g/dL (12.0-15.0) 04/14/21 08:32 Hct 40.8 % (36.0-45.0) 04/14/21 08:32 Plt Count 303 K/uL (152-406) 04/14/21 08:32 Sodium 139 mmol/L (136-145) 04/14/21 08:32 Potassium 3.9 mmol/L (3.5-5.1) 04/14/21 08:32 BUN 8 mg/dL (7-18) 04/14/21 08:32 Creatinine 0.57 mg/dL (0.55-1.3) 04/14/21 08:32 Glucose 91 mg/dL (74-106) 04/14/21 08:32 Phosphorus 3.5 mg/dL (2.5-4.9) 04/14/21 08:32 Magnesium 2.2 mg/dL (1.8-2.4) 04/14/21 08:32 Total Bilirubin 0.5 mg/dL (0.2-1.0) 04/14/21 08:32 AST 7 U/L (15-37) L 04/14/21 08:32 ALT 13 U/L (12-78) 04/14/21 08:32 Alkaline Phosphatase 95 U/L (45-117) 04/14/21 08:32 Lipase 66 U/L (73-393) L 04/13/21 20:20 Home Medications: Cyclobenzaprine [Flexeril*] 10 mg PO PRN 04/15/21 Fluoxetine HCl 10 mg PO TID 04/15/21 Amox/K Clav [Augmentin 600 MG/5 ML Susp] 5 ml PO BID #100 ml 04/16/21 New Medications: Amox/K Clav [Augmentin 600 MG/5 ML Susp] 5 ml PO BID #100 ml Physician Discharge Instructions: OK TO DC IV AND DC HOME FOLLOW-UP WITH PRIMARY CARE PROVIDER IN 1-2 WEEKS FOLLOW-UP WITH General Surgery IN 1-2 WEEKS RETURN TO THE ER IF symptoms worsen CALL or TEXT DR. SCHMIDT AT [phone] IF ANY QUESTIONS REGARDING HOSPITAL STAY. PLEASE CALL THE FLOOR AT [phone] IF ANY MEDICATION OR NURSING QUESTIONS. Diet: AHA Activity: Fall precautions Followup: NONE,NONE [Primary Care Provider] - Time spent managing pt's care (in minutes): 35
== END 2021-04-16 08:35 | disposition home or self-care (01) | DRG 388 ==
LOC: ER 16:12 → ERHOLD 22:55 → 4TH 04-14 19:48
PROVIDERS: ADMIT Hospitalist; ATTEND Hospitalist
DX: K56.609 Unspecified intestinal obstruction, unspecified as to partial versus complete obstruction (principal); U07.1 COVID-19
CPT/HCPCS: 36415; 74177; 80048; 80053; 80076; 81003; 81015; 81025; 83690; 83735; 84100; 85025; 96365; 96375; 99285; J2270; J2405; J2543; J7030; J7050; Q9967; U0003

== ENCOUNTER 2021-05-10 06:28 | Inpatient (IN) | payer OTHER ==
--- OUTSIDE RECORDS SUMMARY | 2021-05-10 06:32 | XMS REPORT | Continuity of Care Document ---
:[address] [facility] t Address [address] [place] [address] Care Team Providers Name Role Phone Priscilla Brice Primary Care Physician Davion Yates Attending Clinician Payers Payer Name Policy Type Policy Number Effective Date Expiration Date S ource Advance Directives Directive Decision Effective Termination Comments Source Date Date Healthcare Agents on N/A [facility] ersity FileNameRelationshipHealthcare [facility] Agent Medical RelationshipCommunicationCannon Memorial HospitaltherFost[facility] Care [phone] (Home) [employer] AluisoOtherFirst [facility] [phone] (Mobile) Nadya FleminggenevieveAuntSecond [facility] [phone] (Mobile) Problems Condition Condition Condition Status Onset Resolution Last Treating Co mments Source Name Details Category Date Date Treatment Clinician Date Nexplanon Nexplanon Disease Active Uni vers in place in place 9-13 ity of 00:00: [place] [address] Medical Branch Abnormal Abnormal Disease Active Overview: Un shobha maternal maternal 5-12 Formattin ity of glucose glucose 00:00: g of this [place] tolerance, tolerance, 00 note Me dical antepartum [...] lumbar 1-17 ity of surgery surgery 00:00: [place] 00 Medical Branch Three Three Disease Active Univers column column 9-13 ity of fracture fracture 00:00: [place] of lumbar of lumbar 00 Medi suleiman vertebra vertebra Branch Allergies, Adverse Reactions, Alerts This patient has no known allergies or adverse reactions. Social History Social Habit Start Date Stop Date Quantity Comments Source Exposure to Not sure [facility] SARS-CoV-2 (event) Medica l Branch Alcohol intake 2021-04-30 2021-04-30 0 /d [facility] 00:00:00 00:00:00 Medical Branch Sex Assigned At [birth year] [facility] y of [place] 00:00:00 00:00:00 Medical Branch Smoking Status Start Date Stop Date Source Never smoker [facility] Branch Medications Ordered Filled Start Stop Current Ordering Indication Dosage Frequency Signature Comments Components Source Medication Medication Date Date Medication? Clinician (SIG) Name Name terconazole Yes [id number] 1{appli Insert 1 Univers 0.8 % 1-18 cator} Applicator ity of vaginal 00:00: into [place] cream 00 vagina at Medical bedtime. Branch metroNIDAZO Yes [id number] 500mg Take 1 Univers LE 500 mg 9-22 tablet by ity o f tablet 00:00: mouth 2 [place] 00 (two) Medical times Branch daily. azelastine Yes [id number] 1{spray Use 1 Univers 137 mcg 6-30 } [place] in ity of (0.1 %) 00:00: each [place] nasal spray 00 nostril 2 Med ical (two) Branch times daily. Use in each nostril as directed benzonatate Yes [id number] 100mg Take 1 Univers (TESSALON 6-30 capsule by itolivier of [place]) 100 00:00: mouth 3 [place] [...] y of Vaccine Quad .5 mL 00:00:00 [facility] IM 6+ MO Branch TDAP 2018-09-26 Completed University of 00:00:00 [facility] Influenza Virus 2018-04-21 Completed Universit y of Vaccine Quad .5 mL 00:00:00 [facility] IM 6+ MO Branch HPV9 2016-02-13 Completed University of 00:00:00 [facility] HPV 2015-01-17 Completed University of 00:00:00 [facility] Meningococcal 2015-01-17 Completed University of Vaccine 00:00:00 [facility] Varicella 2011-03-01 Completed University of (varivax)(chicken 00:00:00 [place] M edical pox) Branch HPV 2009-11-17 Completed University of 00:00:00 [facility] Meningococcal 2009-11-17 Completed University of Vaccine 00:00:00 [facility] TDAP 2009-11-17 Completed University of 00:00:00 [facility] DTAP 2002-04-05 Completed University of 00:00:00 [facility] MMR 2002-04-05 Completed University of 00:00:00 [facility] Polio (IPV/OPV) 2002-04-05 Completed Universit y of 00:00:00 [facility] DTAP 2001-11-28 Completed University of 00:00:00 [facility] MMR 2001-11-28 Completed University of 00:00:00 [facility] Polio (IPV/OPV) 2001-11-28 Completed Universit y of 00:00:00 [facility] Varicella 2001-11-28 Completed University of (varivax)(chicken 00:00:00 [place] M edical pox) Branch Varicella 2001-02-19 Completed University of (varivax)(chicken 00:00:00 [place] M edical pox) Branch DTAP 1999-11-18 Completed University of 00:00:00 [facility] HIB 4 Dose Schedule 1999-11-18 Completed Unive rsity of 00:00:00 [facility] Hep B, Adol or Pedi 1999-11-18 Completed Unive rsity of Dosage 00:00:00 [facility] Polio (IPV/OPV) 1999-11-18 Completed Universit y of 00:00:00 [facility] DTAP 1998 Completed University of 00:00:00 [facility] HIB 4 Dose Schedule 1998 Completed Unive rsity of 00:00:00 [facility] Hep B, Adol or Pedi 1998 Completed Unive rsity of Dosage 00:00:00 [facility] Polio (IPV/OPV) 1998 Completed Universit y of 00:00:00 [facility] Hep B, Adol or Pedi 1998 Completed Unive rsity of Dosage 00:00:00 [facility] Procedures This patient has no known procedures. 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 2020-11-25 2020-11-25 Office SHARON Dyer [id number] 11:48:14 12:04:05 Visit Amanda Ricardo MOISTURE METER OPERATOR [id number] [facility] [id number] MATERNAL [id number] & CHILD [address] [place] [address] Results This patient has no known results.
[2021-05-10] MEDS ORDERED: MORPHINE 4 MG/ML SYR ONE ×3 (07:18→12:02)
[2021-05-10] MEDS ORDERED: NA CHLORIDE 0.9% 1,000 ML ONE (07:18)
[2021-05-10] MEDS ORDERED: ONDANSETRON 4 MG/2 ML VIAL ONE ×2 (07:18→12:02)
[2021-05-10 07:46] LABS: Urine Blood Trace-intact (Negative); Urine Glucose Negative (Negative); Urine Protein Negative (Negative); Urine Specific Gravity 1.025 (1.005-1.030)
[2021-05-10 08:10] LABS: Absolute Lymphocytes (CBC) 2.2 K/uL (0.7-4.9); Hematocrit 42.6 % (36.0-45.0); Lymphocytes % 20.2 % (15.3-44.8); MPV 7.5 fL (7.6-11.3); RBC Red Blood Cell Count 4.74 M/uL (3.86-4.86)
[2021-05-10 08:24] LABS: ALT/SGPT 15 U/L (12-78); AST/SGOT 10 U/L (15-37); Albumin 3.8 g/dL (3.4-5.0); Alkaline Phosphatase 105 U/L (45-117); BUN Blood Urea Nitrogen 9 mg/dL (7-18); Bicarbonate 26 mmol/L (21-32); Bilirubin Direct 0.1 mg/dL (0-0.2); Bilirubin Total 0.5 mg/dL (0.2-1.0); Glucose Level 98 mg/dL (74-106); Lipase 92 U/L (73-393); Potassium 3.6 mmol/L (3.5-5.1); Protein, Total 7.9 g/dL (6.4-8.2); Sodium Level 135 mmol/L (136-145)
--- NOTE | 2021-05-10 08:29 | RAD REPORT ---
EXAM DESCRIPTION: CTAbdomen Pelvis W Contrast - 05/10/2021 8:04 am CLINICAL HISTORY: ABD PAIN COMPARISON: Abdomen Pelvis W Contrast dated 04/13/2021; Abdomen Pelvis W Contrast dated TECHNIQUE: CT of the abdomen and pelvis was performed. All CT scans are performed using dose optimization technique as appropriate and may include automated exposure control or mA/KV adjustment according to patient size. FINDINGS: Lower chest: No acute abnormality. Liver: No acute abnormality or suspicious lesions. Biliary: No biliary ductal dilatation. Stomach: No significant focal abnormality. Duodenum: No significant focal abnormality. Pancreas: No significant abnormality. Spleen: No significant abnormality. Adrenal: No suspicious lesions. Kidney/ureter: No hydronephrosis. No renal calculi. Retroperitoneum: No retroperitoneal adenopathy. Vascular: No aneurysm. Bowel: Small bowel obstruction again noted with transition point in the central abdomen. Changes of p rior small bowel resection. The small bowel measures up to 4.9 cm.. Peritoneum: No ascites or free air. Bladder: Trace bladder gas. Reproductive: No adnexal masses. Bones: No acute fracture. T12 through L3 fusion. Other: n/a IMPRESSION: Mechanical small bowel obstruction with transition point in the central abdomen likely e ither secondary to adhesions or Trace gas in the bladder. Correlate with urinalysis to exclude infection.
[2021-05-10 08:46] LABS: Urine Specific Gravity/Preg 1.025 (1.005-1.030)
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
[2021-05-10] MEDS ORDERED: ONDANSETRON 4 MG/2 ML VIAL IV PRN (09:05)
[2021-05-10] MEDS ORDERED: Mastisol Adhesive Liq ONE (09:48)
--- NOTE | 2021-05-10 11:39 | RAD REPORT ---
EXAM DESCRIPTION: RAD - Abdomen 1 View (KUB) - 05/10/2021 11:01 am CLINICAL HISTORY: ng placement COMPARISON: Abdomen Pelvis W Contrast dated 05/10/2021 FINDINGS: The NG tube tip overlies the stomach. Redemonstrated dilated small bowel. Fusion hardware in the spine. IMPRESSION: NG tube tip overlies the stomach in good position.
[2021-05-10 14:19] VITALS: BMI 34.4
[2021-05-10] MEDS: D5 0.45 NS 1,000 ML IV SCH ×3 (14:23→23:21)
[2021-05-10] MEDS: MORPHINE 4 MG/ML SYR IV PRN ×3 (14:37→23:20)
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
[2021-05-11] MEDS: MORPHINE 4 MG/ML SYR IV PRN ×3 (03:29→14:05)
[2021-05-11 05:49] LABS: Absolute Lymphocytes (CBC) 1.4 K/uL (0.7-4.9); Hematocrit 40.4 % (36.0-45.0); Lymphocytes % 18.9 % (15.3-44.8); MPV 7.1 fL (7.6-11.3); RBC Red Blood Cell Count 4.52 M/uL (3.86-4.86)
[2021-05-11 06:07] LABS: ALT/SGPT 14 U/L (12-78); AST/SGOT 7 U/L (15-37); Albumin 3.3 g/dL (3.4-5.0); Alkaline Phosphatase 92 U/L (45-117); BUN Blood Urea Nitrogen 5 mg/dL (7-18); Bicarbonate 27 mmol/L (21-32); Bilirubin Direct 0.1 mg/dL (0-0.2); Bilirubin Total 0.6 mg/dL (0.2-1.0); Glucose Level 134 mg/dL (74-106); Lipase 204 U/L (73-393); Potassium 3.9 mmol/L (3.5-5.1); Protein, Total 6.8 g/dL (6.4-8.2); Sodium Level 136 mmol/L (136-145)
[2021-05-11] MEDS: D5 0.45 NS 1,000 ML IV SCH ×3 (06:45→20:31)
[2021-05-11] MEDS ORDERED: MINERAL OIL 30 ML UCUP PO ONE ×2 (14:14→20:00)
--- NOTE | 2021-05-11 14:53 | P.PN ---
Date of Service: 05/11/21 S: Patient says she still has some abdominal pain today. Still has not passed any gas per rectum. No bowel movements. Cramping pain seems to be easing up, and pain medicine is controlling it. O: Abdomen appears softer than yesterday, not as firm or tympanic. A: Clinically patient appears to be improving PE: We will give patient some mineral oil via nasogastric tube today. Hopefully her partial small bowel obstruction will resolve. Will reassess again in a.m.
[2021-05-11] MEDS: MORPHINE 2 MG/ML SYR IV PRN ×2 (17:40→20:30)
[2021-05-12] MEDS: MORPHINE 2 MG/ML SYR IV PRN ×5 (00:30→19:44)
[2021-05-12] MEDS ORDERED: MINERAL OIL 30 ML UCUP PO ONE ×2 (02:00→15:16)
[2021-05-12] MEDS: DIAZEPAM 5 MG TABLET PO PRN ×3 (02:20→20:47)
[2021-05-12] MEDS: D5 0.45 NS 1,000 ML IV SCH ×4 (02:44→20:49)
[2021-05-12 04:33] VITALS: O2SAT 99
--- NOTE | 2021-05-12 14:12 | P.PN ---
Date of Service: 05/12/21 S: Today patient has been up to shower. Abdominal pain is a lot less today. Started to feel rumbles in her tummy. Still no bowel movements or flatus yet. O: Patient looks much better today, clinically much improved. Spontaneous and interactive. Complaining of some discomfort from a nasogastric tube. Abdomen is soft, no tenderness elicited on examination. A: Partial small bowel abscess bowel obstruction appears to be resolving PE: Mineral oil, DC NG tube. Ambulate. Patient may chew gum ice chips and popsicles. Anticipate discharge tomorrow.
[2021-05-13] MEDS: MORPHINE 2 MG/ML SYR IV PRN (04:09)
[2021-05-13] MEDS: D5 0.45 NS 1,000 ML IV SCH ×2 (04:17→10:00)
[2021-05-13] MEDS: ACETAMINOPHEN 500 MG TAB PO PRN ×2 (09:11→20:27)
--- NOTE | 2021-05-13 16:03 | P.PN ---
Date of Service: 05/13/21 S: Patient feels better today, looks better as well. No specific complaints. O: Clinically looks well, abdomen is soft, nontender minimal distention A: Partial small bowel obstruction appears to have resolved PE: We will try her on a regular diet today, if tolerated DC in a.m.
[2021-05-14 13:30] VITALS: BP 125/86; TEMP 97.7
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
== END 2021-05-14 15:27 | disposition home or self-care (01) | DRG 390 ==
LOC: ER 06:28 → ERHOLD 09:05 → 2ND 13:44 → OBSVTOIN 16:26
PROVIDERS: ADMIT Surgery; ATTEND Surgery
DX: K56.600 Partial intestinal obstruction, unspecified as to cause (principal); Z20.822 Contact with and (suspected) exposure to COVID-19
CPT/HCPCS: 36415; 74018; 74177; 80048; 80076; 81003; 81025; 82565; 83690; 85025; 96361; 96374; 96375; 99285; G0378; J2270; J2405; J7030; J7799; Q9967; U0003

== ENCOUNTER 2021-11-04 18:41 | Emergency (ER) | payer OTHER ==
[2021-11-04 19:48] LABS: Absolute Lymphocytes (CBC) 2.1 K/uL (0.7-4.9); Hematocrit 43.7 % (36.0-45.0); Lymphocytes % 27.8 % (15.3-44.8); MCV 89.7 fL (80-100); MPV 7.3 fL (7.6-11.3); RBC Red Blood Cell Count 4.88 M/uL (3.86-4.86)
[2021-11-04 19:57] LABS: Albumin 4.1 g/dL (3.4-5.0); Bilirubin Total 0.5 mg/dL (0.2-1.0); Potassium 4.1 mmol/L (3.5-5.1); Protein, Total 7.9 g/dL (6.4-8.2)
[2021-11-04 20:03] LABS: Urine Blood Trace-intact (Negative); Urine Glucose Negative (Negative); Urine Protein Negative (Negative)
--- NOTE | 2021-11-04 21:31 | RAD REPORT ---
EXAM DESCRIPTION: CTAbdomen Pelvis W Contrast - 11/04/2021 9:15 pm CLINICAL HISTORY: abd pain COMPARISON: Abdomen Pelvis W Contrast dated 05/10/2021; Abdomen Pelvis W Contrast dated ; Abdomen Pelvis W Contrast dated 10/04/2020 TECHNIQUE: CT of the abdomen and pelvis was performed. All CT scans are performed using dose optimization technique as appropriate and may include automated exposure control or mA/KV adjustment according to patient size. FINDINGS: Lower chest: No acute abnormality. Liver: No acute abnormality or suspicious lesions. Biliary: No biliary ductal dilatation. Stomach: No significant focal abnormality. Duodenum: No significant focal abnormality. Pancreas: No significant abnormality. Spleen: No significant abnormality. Adrenal: No suspicious lesions. Kidney/ureter: No hydronephrosis. Small bilateral renal calculi. Retroperitoneum: No retroperitoneal adenopathy. Vascular: No aneurysm. Bowel: Partial bowel resection.. Normal appendix. Peritoneum: No ascites or free air. Bladder: Grossly unremarkable. Reproductive: No adnexal masses. Bones: No acute fracture. T12 through L3 fusion. Other: n/a IMPRESSION: No acute intra-abdominal or pelvic finding. Normal appendix.
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
[2021-11-04] MEDS ORDERED: KETOROLAC 30 MG/ML INJ ONE (22:30)
[2021-11-04 23:19] VITALS: BP 129/102; TEMP 98.7; O2SAT 100
--- OUTSIDE RECORDS SUMMARY | 2021-11-05 15:46 | XMS REPORT | Continuity of Care Document ---
:2000 Author Organization [facility] t Address [address] [place] [address] Care Team Providers Name Role Phone JOCELYN RIOJAS Primary Care Physician Unavailable Alexy Santos MD Attending Clinician ALEXY SANTOS Attending Clinician Unavailable Davion Yates Attending Clinician Payers Payer Name Policy Type Policy Number Effective Date Expiration Date S ource Problems Condition Condition Condition Status Onset Resolution Last Treating Co mments Source Name Details Category Date Date Treatment Clinician Date Obesity Obesity Disease Active Univers (BMI (BMI 7-13 ity of 30-39.9) 30-39.9) 00:00: [place] 00 Medical Branch Postoperat Postoperat Disease Active U nivers adalgisa adalgisa - ity of dehisc[place] skin 00 Medical wound, wound, Branch initial initial encounter encounter Status Status Disease Active Univers post post 10-06 [place] sal[place] sal[place] 00 Me dical chris chris Branch Encounter Encounter Disease Active Uni vers for for 6- it[place] of Nexplanon [place] 00 [place] Encounter Encounter Disease Active Overview: Univers for tubal for tubal 09-16 Formattin i ty of ligation ligation 00:00: g of this [place] as 00 note Medical might be Branch different from the original. Added automatic ally from request for surgery [id number] Nexplanon Nexplanon Disease Active Uni vers in place in place 9-13 ity of 00:00: [place] 00 Medical Branch [...] Active Univers ALLERGIE Class ity of S [facility] Social History Social Habit Start Date Stop Date Quantity Comments Source History SDOH [facility] SDOH University o f Alcohol Std [place] [facility] Drinks Branch History SDOH University o f Alcohol Binge [facility] al Branch Exposure to 2021-10-18 2021-10-28 Not sure University of SARS-CoV-2 00:00:00 10:13:00 [facility] (event) Branch Alcohol intake 2021-10-28 2021-10-28 Current drinker of Un iversity of 00:00:00 00:00:00 alcohol (finding) [facility] [place] Tobacco use and 2021-10-28 2021-10-28 Smokeless tobacco Un iversity of exposure 00:00:00 00:00:00 non-user [facility] Alcohol Comment 2021-08-24 2021-08-24 occasionally Univers ity of 00:00:00 00:00:00 [facility] Sex Ass[birth year] At [birth year] Universit y of 00:00:00 00:00:00 [facility] Smoking Status Start Date Stop Date Source Never smoked tobacco [facility] Medications Ordered Filled Start Stop Current Ordering Indication Dosage Frequency Signature Comments Components Source Medication Medication Date Date Medication? Clinician (SIG) Name Name kong 2021- No Take by U nivers (GAS-X 7-13 07-13 mouth. ity of ORAL) 17:48: 00:00 [place] 35 :00 Medical Branch cyclobenzap Yes 10mg Take 10 mg Univers rine 10 mg 6-23 by mouth ity o f tablet 16:44: as needed [place] 32 for Muscle Medical Spasms. Branch FLUoxetine Yes 10mg Take 10 mg U nivers 10 mg 6-23 by mouth 3 ity of capsule 16:44: (three) [place] 32 times Medical daily. Branch acetaminoph 2021- No [id number] 650mg Take 2 Univers en 6-21 -13 tablets by ity of (TYLENOL) 00:00: 00:00 mouth [place] 325 mg 00 :00 every 6 Medical tablet (six) Branch hours as needed for Pain (scale 1-3) or Pain (scale 4-6). simethicone 2021- No [id number] 80mg Take 1 Univers 80 mg 10-06- tablet by ity of chewable 00:00: 00:00 mouth [place] tablet 00 :00 after Medical meals and Branch at bedtime. ibuprofen 2021- No [id number] 600mg Take 1 Univers 600 mg -05 11- tablet by ity of tablet 00:00: 00:00 mouth [place] 00 :00 every 6 Medical (six) Branch hours as needed for Pain (scale 1-3) or Pain (scale 4-6). Immunizations Ordered Immunization Filled Immunization Date Status Commen ts Source Name Name SARS-COV-2 COVID-19 2021-10-09 Completed Unive rsity of PFIZER NITA-SUCROSE 00:00:00 [place] [facility] VACCINE (GRE[place] TOP) Branch SARS-COV-2 COVID-19 2021-09-02 Completed Unive rsity of PFIZER NITA-SUCROSE 00:00:00 [place] [facility] VACCINE (GREENE TOP) Branch Influenza Virus 2020-01-21 Completed Universit y of Vaccine Quad .5 mL 00:00:00 [place] [facility] IM 6+ MO Branch TDAP 2018-09-26 Completed [facility] 00:00:00 [facility] Influenza Virus 2018-04-21 Completed Universit y of Vaccine Quad .5 mL 00:00:00 [place] [facility] IM 6+ MO Branch HPV9 2016-02-13 Completed University of 00:00:00 [facility] HPV 2015-01-17 Completed University of 00:00:00 [facility] Meningococcal 2015-01-17 Completed University of Vaccine 00:00:00 [facility] HPV 2009-11-17 Completed University of 00:00:00 [facility] Meningococcal 2009-11-17 Completed University of Vaccine 00:00:00 [facility] TDAP 2009-11-17 Completed University of 00:00:00 [facility] DTAP 2002-04-05 Completed University of 00:00:00 [facility] MMR 2002-04-05 Completed University of 00:00:00 [facility] Polio (IPV/OPV) 2002-04-05 Completed Universit y of 00:00:00 [facility] DTAP 2001-11-28 Completed University of 00:00:00 [facility] MMR 2001-11-28 Completed University of 00:00:00 [facility] Polio (IPV/OPV) 2001-11-28 Completed Universit y of 00:00:00 [facility] Varicella 2001-11-28 Completed University of (varivax)(chicken 00:00:00 [facility] edical pox) Branch Varicella 2001-02-19 Completed University of (varivax)(chicken 00:00:00 [facility] edical pox) Branch DTAP 1999-11-18 Completed University of 00:00:00 [facility] HIB 4 Dose Schedule 1999-11-18 Completed Unive rsity of 00:00:00 [facility] Hep B, Adol or Pedi 1999-11-18 Completed Unive rsity of Dosage 00:00:00 [facility] Polio (IPV/OPV) 1999-11-18 Completed Universit y of 00:00:00 [facility] DTAP 2000 Completed University of 00:00:00 [facility] HIB 4 Dose Schedule 2000 Completed Unive rsity of 00:00:00 [facility] Hep B, Adol or Pedi 2000 Completed Unive rsity of Dosage 00:00:00 [facility] Polio (IPV/OPV) 2000 Completed Universit y of 00:00:00 [facility] Hep B, Adol or Pedi 2000 Completed Unive rsity of Dosage 00:00:00 [facility] Vital Signs Vital Name Observation Time Observation Value Comments Source Systolic blood 2021-10-28 15:36:00 121 mm[Hg] Univer sity of pressure [facility] Diastolic blood 2021-10-28 15:36:00 81 mm[Hg] Unive rsity of pressure [facility] Heart rate 2021-10-28 15:35:00 73 /min Universi ty [facility] Body temperature 2021-10-28 15:35:00 37.22 Delfina Univ ersity of [facility] Body weight 2021-10-28 15:35:00 86.183 kg Universi ty [facility] BMI 2021-10-28 15:35:00 34.74 kg/m2 [facility] Procedures This patient has no known procedures. Encounters Start End Encounter Admission Attending Care Care Encounter Source Date/Time Date/Time Type Type Clinicians Facility Department ID 2021-10-28 2021-10-28 Office Henrietta Santos [facility] [id number] [facility] 10:00:00 11:33:53 Visit Alexy GUTIÉRREZ [id number] [facility] [id number] Shaun s PROFESSIO [id number] Fl dical [address] 2021-10-28 2021-10-28 Outpatient R HENRIETTA SANTOS [facility] [id number] [facility] 10:00:00 11:33:[facility] 2020-11-25 2020-11-25 Office Gomez [facility] [id number] 11:48:14 12:04:05 Visit Amanda Ricardo INTERNAL COMMUNICATIONS SPECIALIST [id number] [facility] [id number] MATERNAL [id number] & CHILD [address] [place] [address] [facility] Results This patient has no known results.
== END 2021-11-04 22:34 | disposition home or self-care (01) ==
LOC: ER 18:41
DX: R10.30 Lower abdominal pain, unspecified (principal)
CPT/HCPCS: 85025; 36415; 81025; 81003; 83690; 80053; 74177; Q9967

== ENCOUNTER 2022-03-29 19:46 | Emergency (ER) | payer OTHER ==
--- OUTSIDE RECORDS SUMMARY | 2022-03-29 19:55 | XMS REPORT | Continuity of Care Document ---
:2000 Author Organization [facility] t Address [address] [place] [address] [address] [place] [address] Care Team Providers Name Role Phone Jocelyn Brice Primary Care Physician [phone] Mara Olivarez Attending Clinician Lab, Ang - Db Attending Clinician Unavailable MARA CUEVAS Attending Clinician Unavailable Unknown, Attending Attending Clinician Unavailable UNKNOWN, ATTENDING Attending Clinician Unavailable LORENZA JARAMILLO Attending Clinician Unavailable Lorenza Klein Attending Clinician ROSA RILEY Attending Clinician Unavailable Rosa Hale Attending Clinician Doctor Unassigned, [place] Attending Clinician Unavailable , Adc Lab Attending Clinician Unavailable Henrietta Santos MD Attending Clinician HENRIETTA SANTOS Attending Clinician Unavailable LOKESH MISHRA Attending Clinician Unavailable AMANDA PARKER Attending Clinician Unavailable Lokesh Mishra MD Attending Clinician Vaccine, [facility] Family Medicine Attending Clinician Unavailable Moe Yo DO Attending Clinician MOE YO Attending Clinician Unavailable Rachel Sanchez RN Attending Clinician Unavailable Yvon Garcia CRNA Attending Clinician Jacy FOSTER, Phill Loera Attending Clinician Pob, [facility] Lab Main Attending Clinician Unavailable , Adc Lab Attending Clinician Unavailable BHARGAV SARABIA Attending Clinician Unavailable Christina WHCNP, Jocelyn Gray Attending Clinician [phone] HETAL HOOK Attending Clinician Unavailable Pea-Rmchp Nurse Vst, Fp Nrpt Pills Class Attending Clinician Unavailable Hetal Muniz Attending Clinician PHILL INFANTE Attending Clinician Unavailable Arelis JIMENEZ MD, John Attending Clinician Elena BILLPOSTER, Amanda Ricardo Attending Clinician Josey Koch MD Attending Clinician JOSEY KOCH Attending Clinician Unavailable JOCELYN VASQUEZ Attending Clinician Unavailable Provider, [facility] Attending Clinician Unavailable Evi Greer Attending Clinician EVI MYERS Attending Clinician Unavailable Lab, Ang-Rmchp Attending Clinician Unavailable China Fine RN Attending Clinician Unavailable Visit, Ang-Rmchp Nurse Attending Clinician Unavailable Vi FOSTER, Tony Martini Attending Clinician Kevin FOSTER, Jim Mckeon Attending Clinician NATA DINERO Attending Clinician Unavailable Erika De Leon MD Attending Clinician [phone] Gasper Morton MD Attending Clinician HENRIETTA SANTOS Admitting Clinician Unavailable Henrietta Santos MD Admitting Clinician Josey Koch MD Admitting Clinician NATA DINERO Admitting Clinician Unavailable Erika De Leon MD Admitting Clinician [phone] Payers Payer Name Policy Type Policy Number Effective Date Expiration Date S gal[place] MEDICAID PENDING PENDING 2020 00:00:00 Problems Condition Condition Condition Status Onset Resolution Last Treating Co mments Source Name Details Category Date Date Treatment Clinician Date Obesity Obesity Disease Active Univers (BMI (BMI 7-13 ity of 30-39.9) 30-39.9) 00:00: [place] 00 Medical Branch Postoperat Postoperat Disease Active U nivers adalgisa adalgisa 10-07 ity of dehisc[place] of skin 00 Medical wound, wound, Branch initial initial encounter encounter Status Status Disease Active [facility] post post 10-06 [place] bilateral [place] sal[place] salping[place] 00 Me dical chris chris Branch Encounter Encounter Disease Active Uni vers for for 10-06 [place] of Nexplanon [place] Encounter Encounter Disease Active Overview: Univers for tubal for tubal 09-16 Formattin i ty of ligation ligation 00:00: g of this [place] 00 note Medical might be Branch different from the original. Added automatic ally from request for surgery [id number] Nexplanon Nexplanon Disease Active Uni vers in [...] Active Univers ALLERGIE Class ity of [facility] [place] [facility] Social History Social Habit Start Date Stop Date Quantity Comments Source History [facility] o f Alcohol Frequency [place] [facility] History [facility] o f Alcohol Std [place] [facility] Drinks [facility] History [facility] University o f Alcohol Binge [place] [facility] Exposure to 2022-03-15 2022-03-25 Not sure University of SARS-CoV-2 00:00:00 11:20:00 [place] [facility] (event) Branch Alcohol intake 2022-03-25 2022-03-25 Current drinker of Un iversity of 00:00:00 00:00:00 alcohol (finding) [facility] Tobacco use and 2021-10-28 2021-10-28 Smokeless tobacco Un iversity of exposure 00:00:00 00:00:00 non-user [facility] Alcohol Comment 2021-08-24 2021-08-24 occasionally Univers ity of 00:00:00 00:00:00 [facility] Sex Assigned At [birth year] Universit y of 00:00:00 00:00:00 [facility] Smoking Status Start Date Stop Date Source Never smoked tobacco [facility] Medications Ordered Filled Start Stop Current Ordering Indication Dosage Frequency Signature Comments Components Source Medication Medication Date Date Medication? Clinician (SIG) Name Name fluconazole 2021-04- Yes [id number] 150mg Take 1 Univers (DIFLUCAN) 2-13 tablet by ity of 150 mg 00:00: 05:59 [place] :[place] now for 1 Medical dose. Branch fluconazole 2021-04- Yes [id number] 150mg Take 1 Univers (DIFLUCAN) 2-13 tablet by ity of 150 mg 00:00: 05:59 [place] 00 :00 now for 1 Medical dose. Branch fluconazole 2021-04- Yes [id number] 150mg Take 1 Univers (DIFLUCAN) 2-03 29-13 tablet by ity of 150 mg 00:00: 05:59 [place] tablet 00 :00 now for 1 Medical dose. Branch ampicillin 2021-04- Yes [id number] 500mg Take 1 Univers 500 mg 2-02 27-19 capsule by ity of capsule 00:00: 05:59 mouth [place] 00 :00 every 6 Medical (six) Branch hours for 7 days. ampicillin 2021-04- Yes [id number] 500mg Take 1 Univers 500 mg 2-02 27-19 capsule by ity of capsule 00:00: 05:59 mouth [place] 00 :00 every 6 Medical (six) Branch hours for 7 days. ampicillin 2021-04- Yes [id number] 500mg Take 1 Univers 500 mg 2-02 27-19 capsule by ity of capsule 00:00: 05:59 mouth [place] 00 :00 every 6 Medical (six) Branch hours for 7 days. ampicillin 2021-04- Yes [id number] 500mg Take 1 Univers 500 mg 05-2919 capsule by ity of capsule 00:00: 05:59 mouth [place] 00 :00 every 6 Medical (six) Branch hours for 7 days. ampicillin 2021-04- Yes [id number] 500mg Take 1 Univers 500 mg 2-02 27-19 capsule by ity of capsule 00:00: 05:59 mouth [place] 00 :00 every 6 Medical (six) Branch hours for 7 days. ampicillin 2021-04- Yes [id number] 500mg Take 1 Univers 500 mg 2-19 capsule by ity of capsule 00:00: 05:59 mouth [place] 00 :00 every 6 Medical (six) Branch hours for 7 days. triamcinolo 2021-04- No [id number] 40mg Univers ne 04-28 ity of acetonide 20:15: 19:31 [place] (KENALOG) 00 :00 Medical injection Branch 40 mg triamcinolo 2021-04- No [id number] 40mg 40 mg, Univers ne 04-28 Intramuscu ity of acetonide 20:15: 19:31 [place]CE, [place] (KENALOG) 00 :00 1 dose, On Medi suleiman injection Fri Branch 40 mg 02/26/22 at 1415, Routine triamcinolo 2021-04- No [id number] 40mg Univers ne 04-28 ity of acetonide 20:15: 19:31 [place] (KENALOG) 00 :00 Medical injection Branch 40 mg triamcinolo 2021-04- No [id number] 40mg 40 mg, Univers ne 04-28 Intramuscu ity of acetonide 20:15: 19:31 [place]CE, [place] (KENALOG) 00 :00 1 dose, On Medi suleiman injection Fri Branch 40 mg 02/26/22 at 1415, Routine triamcinolo 2021-04 Yes [id number] Apply to [facility] ne 04-28 area(s) 2 ity of acetonide 00:00: (two) [place] 0.1 % 00 times Medical ointment daily. Branch triamcinolo 2021-04 Yes [id number] Apply to [facility] ne 1-11 area(s) 2 ity of acetonide 00:00: (two) [place] 0.1 % 00 times Medical ointment daily. Branch [facility] 2021-04 Yes [id number] Apply to [facility] ne 1-11 area(s) 2 ity of acetonide 00:00: (two) [place] 0.1 % 00 times Medical ointment daily. Branch triamcinolo 2021-04 Yes [id number] Apply to [facility] ne 1-11 area(s) 2 ity of acetonide 00:00: (two) [place] 0.1 % 00 times Medical ointment daily. Branch triamcinolo 2021-04 Yes [id number] Apply to [facility] ne 1-11 area(s) 2 ity of acetonide 00:00: (two) [place] 0.1 % 00 times Medical ointment daily. [place] [facility] 2021-04 Yes [id number] Apply to [facility] ne 1-11 area(s) 2 ity of acetonide 00:00: (two) [place] 0.1 % 00 times Medical ointment daily. Branch [facility] 2021-04 Yes [id number] Apply to [facility] ne 1-11 area(s) 2 ity of acetonide 00:00: (two) [place] 0.1 % 00 times Medical ointment daily. [place] [facility] 2021-04 Yes [id number] Apply to [facility] ne 1-11 area(s) 2 ity of acetonide 00:00: (two) [place] 0.1 % 00 times Medical ointment daily. Branch triamcinolo 2021-04 Yes [id number] Apply to [facility] ne 1-11 area(s) 2 ity of acetonide 00:00: (two) [place] 0.1 % 00 times Medical ointment daily. Branch triamcinolo 2021-04 Yes [id number] Apply to [facility] ne 1-11 area(s) 2 ity of acetonide 00:00: (two) [place] 0.1 % 00 times Medical ointment daily. Branch predniSONE 2021-04- Yes [id number] 40mg Take 2 Univers 20 mg 04-28 11-17 tablets by ity of tablet 00:00: 05:59 mouth in [place] 00 :00 the Medical morning Branch for 5 days. predniSONE 2021-04- Yes [id number] 40mg Take 2 Univers 20 mg 04-28 tablets by ity of tablet 00:00: 05:59 mouth in [place] 00 :00 the Medical morning Branch for 5 days. metroNIDAZO 2021-04- Yes [id number] 500mg Take 1 Univers LE (FLAGYL) 04-26 tablet by it y of 500 mg 00:00: 05:59 mouth [place] tablet 00 :00 every 12 Medical (twelve) Branch hours for 7 days. metroNIDAZO 2021-04- Yes [id number] 500mg Take 1 Univers LE (FLAGYL) 04-26 tablet by it y of 500 mg 00:00: 05:59 mouth [place] tablet 00 :00 every 12 Medical (twelve) Branch hours for 7 days. metroNIDAZO 2021-04- Yes [id number] 500mg Take 1 Univers LE (FLAGYL) 04-26 tablet by it y of 500 mg 00:00: 05:59 mouth [place] tablet 00 :00 every 12 Medical ([facility]) Branch hours for 7 days. fluconazole 2021-04- Yes [id number] 150mg Take 1 Univers (DIFLUCAN) 04-26 tablet by ity of 150 mg 00:00: 05:59 mouth [place] tablet 00 :00 every 72 Medical (seventy-t Branch wo) hours for 2 doses. fluconazole 2021-04- Yes [id number] 150mg Take 1 Univers (DIFLUCAN) 04-26 tablet by ity of 150 mg 00:00: 05:59 mouth [place] tablet 00 :00 every 72 Medical (seventy-t Branch wo) hours for 2 doses. fluconazole 2021-04- Yes [id number] 150mg Take 1 Univers (DIFLUCAN) 04-26 tablet by ity of 150 mg 00:00: 05:59 mouth [place] tablet 00 :00 every 72 Medical (seventy-t Branch wo) hours for 2 doses. Nitrofurant 2021-04- Yes [id number] 100mg Take 1 Univers oin&Nit. 04-24 capsule by ity of Macrocryst 00:00: 05:59 [place] in [place] (MACROBID) 00 :00 the Medical 100 mg morning Branch capsule and 1 capsule in the evening. Take with meals. Do all this for 5 days. Nitrofurant 2021-04- Yes [id number] 100mg Take 1 Univers oin&Nit. 04-24 capsule by ity of Macrocryst 00:00: 05:59 [place] (MACROBID) 00 :00 the Medical 100 mg morning Branch capsule and 1 capsule in the evening. Take with meals. Do all this for 5 days. Nitrofurant 2021-04- Yes [id number] 100mg Take 1 Univers oin&Nit. 04-24 capsule by ity of Macrocryst 00:00: 05:59 mouth [place] (MACROBID) 00 :00 the Medical 100 mg morning Branch capsule and 1 capsule in the evening. Take with meals. Do all this for 5 days. Nitrofurant 2021-04- Yes [id number] 100mg Take 1 Univers oin&Nit. 04-24 capsule by ity of Macrocryst 00:00: 05:59 mouth [place] (MACROBID) 00 :00 the Medical 100 mg morning Branch capsule and 1 capsule in the evening. Take with meals. Do all this for 5 days. Nitrofurant 2021-04- Yes [id number] 100mg Take 1 Univers oin&Nit. 04-24 capsule by ity of Macrocryst 00:00: 05:59 mouth [place] (MACROBID) 00 :00 the Medical 100 mg morning Branch capsule and 1 capsule in the evening. Take with meals. Do all this for 5 days. simethicone 2021- No Take by Un shobha (GAS-X 10-28-13 mouth. ity of ORAL) 17:48: 00:00 [place] 35 :00 Medical Branch cyclobenzap 2021-0 Yes 10mg Take 10 mg Univers rine 10 mg 6-23 by mouth ity o f tablet 16:44: as needed [place] 32 for Muscle Medical Spasms. Branch FLUoxetine 2021-0 Yes 10mg Take 10 mg U nivers 10 mg 6-23 by mouth 3 ity of capsule 16:44: (three) [place] 32 times Medical daily. Branch cyclobenzap 2021-0 Yes 10mg Take 10 mg Univers rine 10 mg 6-23 by mouth ity o f tablet 16:44: as needed [place] 32 for Muscle Medical Spasms. Branch FLUoxetine 2022-0 Yes 10mg Take 10 mg U nivers 10 mg 6-23 by mouth 3 ity of capsule 16:44: (three) [place] 32 times Medical daily. Branch cyclobenzap 2022-0 Yes 10mg Take 10 mg Univers rine 10 mg 6-23 by mouth ity o f tablet 16:44: as needed [place] 32 for Muscle Medical Spasms. Branch FLUoxetine 2022-0 Yes 10mg Take 10 mg U nivers 10 mg 6-23 by mouth 3 ity of capsule 16:44: (three) [place] 32 times Medical daily. Branch cyclobenzap 2022-0 Yes 10mg Take 10 mg Univers rine 10 mg 6-23 by mouth ity o f tablet 16:44: as needed [place] 32 for Muscle Medical Spasms. Branch FLUoxetine 2022-0 Yes 10mg Take 10 mg U nivers 10 mg 6-23 by mouth 3 ity of capsule 16:44: (three) [place] 32 times Medical daily. Branch cyclobenzap 2022-0 Yes 10mg Take 10 mg Univers rine 10 mg 6-23 by mouth ity o f tablet 16:44: as needed [place] 32 for Muscle Medical Spasms. Branch FLUoxetine 2022-0 Yes 10mg Take 10 mg U nivers 10 mg 6-23 by mouth 3 ity of capsule 16:44: (three) [place] 32 times Medical daily. Branch cyclobenzap 2022-0 Yes 10mg Take 10 mg Univers rine 10 mg 6-23 by mouth ity o f tablet 16:44: as needed [place] 32 for Muscle Medical Spasms. Branch FLUoxetine 2022-0 Yes 10mg Take 10 mg U nivers 10 mg 6-23 by mouth 3 ity of capsule 16:44: (three) [place] 32 times Medical daily. Branch cyclobenzap 2022-0 Yes 10mg Take 10 mg Univers rine 10 mg 6-23 by mouth ity o f tablet 16:44: as needed [place] 32 for Muscle Medical Spasms. Branch FLUoxetine 2022-0 Yes 10mg Take 10 mg U nivers 10 mg 6-23 by mouth 3 ity of capsule 16:44: (three) [place] 32 times Medical daily. Branch cyclobenzap 2022-0 Yes 10mg Take 10 mg Univers rine 10 mg 6-23 by mouth ity o f tablet 16:44: as needed [place] 32 for Muscle Medical Spasms. Branch FLUoxetine 2022-0 Yes 10mg Take 10 mg U nivers 10 mg 6-23 by mouth 3 ity of capsule 16:44: (three) [place] 32 times Medical daily. Branch cyclobenzap 2022-0 Yes 10mg Take 10 mg Univers rine 10 mg 6-23 by mouth ity o f tablet 16:44: as needed [place] 32 for Muscle Medical Spasms. Branch FLUoxetine 2022-0 Yes 10mg Take 10 mg U nivers 10 mg 6-23 by mouth 3 ity of capsule 16:44: (three) [place] 32 times Medical daily. Branch cyclobenzap 2022-0 Yes 10mg Take 10 mg Univers rine 10 mg 6-23 by mouth ity o f tablet 16:44: as needed [place] 32 for Muscle Medical Spasms. Branch FLUoxetine 2022-0 Yes 10mg Take 10 mg U nivers 10 mg 6-23 by mouth 3 ity of capsule 16:44: (three) [place] 32 times Medical daily. Branch cyclobenzap 2022-0 Yes 10mg Take 10 mg Univers rine 10 mg 6-23 by mouth ity o f tablet 16:44: as needed [place] 32 for Muscle Medical Spasms. Branch FLUoxetine 2022-0 Yes 10mg Take 10 mg U nivers 10 mg 6-23 by mouth 3 ity of capsule 16:44: (three) [place] 32 times Medical daily. Branch cyclobenzap 2022-0 Yes 10mg Take 10 mg Univers rine 10 mg 6-23 by mouth ity o f tablet 16:44: as needed [place] 32 for Muscle Medical Spasms. Branch FLUoxetine 2022-0 Yes 10mg Take 10 mg U nivers 10 mg 6-23 by mouth 3 ity of capsule 16:44: (three) [place] 32 times Medical daily. Branch cyclobenzap 2022-0 Yes 10mg Take 10 mg Univers rine 10 mg 6-23 by mouth ity o f tablet 16:44: as needed [place] 32 for Muscle Medical Spasms. Branch FLUoxetine 2022-0 Yes 10mg Take 10 mg U nivers 10 mg 6-23 by mouth 3 ity of capsule 16:44: (three) [place] 32 times Medical daily. Branch cyclobenzap 2022-0 Yes 10mg Take 10 mg Univers rine 10 mg 6-23 by mouth ity o f tablet 16:44: as needed [place] 32 for Muscle Medical Spasms. Branch FLUoxetine 2022-0 Yes 10mg Take 10 mg U nivers 10 mg 6-23 by mouth 3 ity of capsule 16:44: (three) [place] 32 times Medical daily. Branch cyclobenzap 2022-0 Yes 10mg Take 10 mg Univers rine 10 mg 6-23 by mouth ity o f tablet 16:44: as needed [place] 32 for Muscle Medical Spasms. Branch FLUoxetine 2022-0 Yes 10mg Take 10 mg U nivers 10 mg 6-23 by mouth 3 ity of capsule 16:44: (three) [place] 32 times Medical daily. Branch cyclobenzap 2022-0 Yes 10mg Take 10 mg Univers rine 10 mg 6-23 by mouth ity o f tablet 16:44: as needed [place] 32 for Muscle Medical Spasms. Branch FLUoxetine 2022-0 Yes 10mg Take 10 mg U nivers 10 mg 6-23 by mouth 3 ity of capsule 16:44: (three) [place] 32 times Medical daily. Branch cyclobenzap 2022-0 Yes 10mg Take 10 mg Univers rine 10 mg 6-23 by mouth ity o f tablet 16:44: as needed [place] 32 for Muscle Medical Spasms. Branch FLUoxetine 2022-0 Yes 10mg Take 10 mg U nivers 10 mg 6-23 by mouth 3 ity of capsule 16:44: (three) [place] 32 times Medical daily. Branch cyclobenzap 2022-0 Yes 10mg Take 10 mg Univers rine 10 mg 6-23 by mouth ity o f tablet 16:44: as needed [place] 32 for Muscle Medical Spasms. Branch FLUoxetine 2022-0 Yes 10mg Take 10 mg U nivers 10 mg 6-23 by mouth 3 ity of capsule 16:44: (three) [place] 32 times Medical daily. Branch cyclobenzap 2022-0 Yes 10mg Take 10 mg Univers rine 10 mg 6-23 by mouth ity o f tablet 16:44: as needed [place] 32 for Muscle Medical Spasms. Branch FLUoxetine 2022-0 Yes 10mg Take 10 mg U nivers 10 mg 6-23 by mouth 3 ity of capsule 16:44: (three) [place] 32 times Medical daily. Branch cyclobenzap 2022-0 Yes 10mg Take 10 mg Univers rine 10 mg 6-23 by mouth ity o f tablet 16:44: as needed [place] 32 for Muscle Medical Spasms. Branch FLUoxetine 0 Yes 10mg Take 10 mg U nivers 10 mg 6-23 by mouth 3 ity of capsule 16:44: (three) [place] 32 times Medical daily. Branch cyclobenzap 0 Yes 10mg Take 10 mg Univers rine 10 mg 6-23 by mouth ity o f tablet 16:44: as needed [place] 32 for Muscle Medical Spasms. Branch FLUoxetine 0 Yes 10mg Take 10 mg U nivers 10 mg 6-23 by mouth 3 ity of capsule 16:44: (three) [place] 32 times Medical daily. Branch acetaminoph 2021- No [id number] 650mg Take 2 Univers en 6-21 -13 tablets by ity of (TYLENOL) 00:00: 00:00 mouth [place] 325 mg 00 :00 every 6 Medical tablet (six) Branch hours as needed for Pain (scale 1-3) or Pain (scale 4-6). simethicone 2021-2- No [id number] 80mg Take 1 Univers 80 mg 6-21 -13 tablet by ity of chewable 00:00: 00:00 mouth [place] tablet 00 :00 after Medical meals and Branch at bedtime. ibuprofen 2021-2021- No [id number] 600mg Take 1 Univers 600 mg 6-21 -13 tablet by ity of tablet 00:00: 00:00 mouth [place] 00 :00 every 6 Medical (six) Branch hours as needed for Pain (scale 1-3) or Pain (scale 4-6). Immunizations Ordered Immunization Filled Immunization Date Status Commen ts Source Name Name SARS-COV-2 COVID-19 2021-10-09 Completed Unive rsity of PFIZER NITA-SUCROSE 00:00:00 [place] [facility] VACCINE (GREENE TOP) Branch SARS-COV-2 COVID-19 2021-10-09 Completed Unive rsity of PFIZER NITA-SUCROSE 00:00:00 [place] [facility] VACCINE (GREENE TOP) Branch SARS-COV-2 COVID-19 2021-10-09 Completed Unive rsity of PFIZER NITA-SUCROSE 00:00:00 [place] [facility] VACCINE (GREENE TOP) Branch SARS-COV-2 COVID-19 2021-10-09 Completed Unive rsity of PFIZER NITA-SUCROSE 00:00:00 [place] [facility] VACCINE (GREENE TOP) Branch SARS-COV-2 COVID-19 2021-10-09 Completed Unive rsity of PFIZER NITA-SUCROSE 00:00:00 [place] [facility] VACCINE (GREENE TOP) Branch SARS-COV-2 COVID-19 2021-10-09 Completed Unive rsity of PFIZER NITA-SUCROSE 00:00:00 [place] [facility] VACCINE (GREENE TOP) Branch SARS-COV-2 COVID-19 2021-10-09 Completed Unive rsity of PFIZER NITA-SUCROSE 00:00:00 [place] [facility] VACCINE (GREENE TOP) Branch SARS-COV-2 COVID-19 2021-10-09 Completed Unive rsity of PFIZER NITA-SUCROSE 00:00:00 [place] [facility] VACCINE (GREENE TOP) Branch SARS-COV-2 COVID-19 2021-10-09 Completed Unive rsity of PFIZER NITA-SUCROSE 00:00:00 [place] [facility] VACCINE (GREENE TOP) Branch SARS-COV-2 COVID-19 2021-10-09 Completed Unive rsity of PFIZER NITA-SUCROSE 00:00:00 [place] [facility] VACCINE (GREENE TOP) Branch SARS-COV-2 COVID-19 2021-10-09 Completed Unive rsity of PFIZER NITA-SUCROSE 00:00:00 [place] [facility] VACCINE (GREENE TOP) Branch SARS-COV-2 COVID-19 2021-10-09 Completed Unive rsity of PFIZER NITA-SUCROSE 00:00:00 [place] [facility] VACCINE (GREENE TOP) Branch SARS-COV-2 COVID-19 2021-10-09 Completed Unive rsity of PFIZER NITA-SUCROSE 00:00:00 [place] [facility] VACCINE (GREENE TOP) Branch SARS-COV-2 COVID-19 2021-10-09 Completed Unive rsity of PFIZER NITA-SUCROSE 00:00:00 [place] [facility] VACCINE (GREENE TOP) Branch SARS-COV-2 COVID-19 2021-10-09 Completed Unive rsity of PFIZER NITA-SUCROSE 00:00:00 [place] [facility] VACCINE (GREENE TOP) Branch SARS-COV-2 COVID-19 2021-10-09 Completed Unive rsity of PFIZER NITA-SUCROSE 00:00:00 [place] [facility] VACCINE (GREENE TOP) Branch SARS-COV-2 COVID-19 2021-10-09 Completed Unive rsity of PFIZER NITA-SUCROSE 00:00:00 [place] [facility] VACCINE (GREENE TOP) Branch SARS-COV-2 COVID-19 2021-10-09 Completed Unive rsity of PFIZER NITA-SUCROSE 00:00:00 [place] [facility] VACCINE (GREENE TOP) Branch SARS-COV-2 COVID-19 2021-10-09 Completed Unive rsity of PFIZER NITA-SUCROSE 00:00:00 [place] [facility] VACCINE (GREENE TOP) Branch SARS-COV-2 COVID-19 2021-10-09 Completed Unive rsity of PFIZER NITA-SUCROSE 00:00:00 [place] [facility] VACCINE (GREENE TOP) Branch SARS-COV-2 COVID-19 2021-10-09 Completed Unive rsity of PFIZER NITA-SUCROSE 00:00:00 [place] [facility] VACCINE (GREENE TOP) Branch SARS-COV-2 COVID-19 2021-09-02 Completed Unive rsity of PFIZER NITA-SUCROSE 00:00:00 [place] [facility] VACCINE (GREENE TOP) Branch SARS-COV-2 COVID-19 2021-09-02 Completed Unive rsity of PFIZER NITA-SUCROSE 00:00:00 [place] [facility] VACCINE (GREENE TOP) Branch SARS-COV-2 COVID-19 2021-09-02 Completed Unive rsity of PFIZER NITA-SUCROSE 00:00:00 [place] [facility] VACCINE (GREENE TOP) Branch SARS-COV-2 COVID-19 2021-09-02 Completed Unive rsity of PFIZER NITA-SUCROSE 00:00:00 [place] [facility] VACCINE (GREENE TOP) Branch SARS-COV-2 COVID-19 2021-09-02 Completed Unive rsity of PFIZER NITA-SUCROSE 00:00:00 [place] [facility] VACCINE (GREENE TOP) Branch SARS-COV-2 COVID-19 2021-09-02 Completed Unive rsity of PFIZER NITA-SUCROSE 00:00:00 [place] [facility] VACCINE (GREENE TOP) Branch SARS-COV-2 COVID-19 2021-09-02 Completed Unive rsity of PFIZER NITA-SUCROSE 00:00:00 [place] [facility] VACCINE (GREENE TOP) Branch SARS-COV-2 COVID-19 2021-09-02 Completed Unive rsity of PFIZER NITA-SUCROSE 00:00:00 [place] [facility] VACCINE (GREENE TOP) Branch SARS-COV-2 COVID-19 2021-09-02 Completed Unive rsity of PFIZER NITA-SUCROSE 00:00:00 [place] [facility] VACCINE (GREENE TOP) Branch SARS-COV-2 COVID-19 2021-09-02 Completed Unive rsity of PFIZER NITA-SUCROSE 00:00:00 [place] [facility] VACCINE (GREENE TOP) Branch SARS-COV-2 COVID-19 2021-09-02 Completed Unive rsity of PFIZER NITA-SUCROSE 00:00:00 [place] [facility] VACCINE (GREENE TOP) Branch SARS-COV-2 COVID-19 2021-09-02 Completed Unive rsity of PFIZER NITA-SUCROSE 00:00:00 [place] [facility] VACCINE (GREENE TOP) Branch SARS-COV-2 COVID-19 2021-09-02 Completed Unive rsity of PFIZER NITA-SUCROSE 00:00:00 [place] [facility] VACCINE (GREENE TOP) Branch SARS-COV-2 COVID-19 2021-09-02 Completed Unive rsity of PFIZER NITA-SUCROSE 00:00:00 [place] [facility] VACCINE (GREENE TOP) Branch SARS-COV-2 COVID-19 2021-09-02 Completed Unive rsity of PFIZER NITA-SUCROSE 00:00:00 [place] [facility] VACCINE (GREENE TOP) Branch SARS-COV-2 COVID-19 2021-09-02 Completed Unive rsity of PFIZER NITA-SUCROSE 00:00:00 [place] [facility] VACCINE (GREENE TOP) Branch SARS-COV-2 COVID-19 2021-09-02 Completed Unive rsity of PFIZER NITA-SUCROSE 00:00:00 [place] [facility] VACCINE (GREENE TOP) Branch SARS-COV-2 COVID-19 2021-09-02 Completed Unive rsity of PFIZER NITA-SUCROSE 00:00:00 [place] [facility] VACCINE ([place] [facility]) Branch SARS-COV-2 COVID-19 2021-09-02 Completed [facility] PFIZER NITA-SUCROSE 00:00:00 [facility] VACCINE ([facility]) [facility] SARS-COV-2 COVID-19 2021-09-02 Completed [facility] PFIZER NITA-SUCROSE 00:00:00 [facility] VACCINE ([facility]) [facility] SARS-COV-2 COVID-19 2021-09-02 Completed [facility] of PFIZER NITA-SUCROSE 00:00:00 [facility] VACCINE ([facility]) [facility] Influenza Virus 2020-01-21 Completed [facility]it y of Vaccine Quad .5 mL 00:00:00 [facility] IM 6+ MO Branch Influenza Virus 2020-01-21 Completed [facility] Vaccine Quad .5 mL 00:00:00 [facility] IM 6+ MO [facility] Influenza Virus 2020-01-21 Completed [facility] Vaccine Quad .5 mL 00:00:00 [facility] IM 6+ MO [facility] Influenza Virus 2020-01-21 Completed [facility] Vaccine Quad .5 mL 00:00:00 [facility] IM 6+ MO [facility] Influenza Virus 2020-01-21 Completed [facility] Vaccine Quad .5 mL 00:00:00 [facility] IM 6+ MO [facility] Influenza Virus 2020-01-21 Completed [facility] Vaccine Quad .5 mL 00:00:00 [facility] IM 6+ MO [facility] Influenza Virus 2020-01-21 Completed [facility] Vaccine Quad .5 mL 00:00:00 [facility] IM 6+ MO [facility] Influenza Virus 2020-01-21 Completed [facility] Vaccine Quad .5 mL 00:00:00 [facility] IM 6+ MO [facility] Influenza Virus 2020-01-21 Completed [facility] Vaccine Quad .5 mL 00:00:00 [facility] IM 6+ MO [facility] Influenza Virus 2020-01-21 Completed [facility] Vaccine Quad .5 mL 00:00:00 [facility] IM 6+ MO [facility] Influenza Virus 2020-01-21 Completed [facility] Vaccine Quad .5 mL 00:00:00 [facility] IM 6+ MO [facility] Influenza Virus 2020-01-21 Completed [facility] Vaccine Quad .5 mL 00:00:00 [facility] IM 6+ MO [facility] Influenza Virus 2020-01-21 Completed [facility] Vaccine Quad .5 mL 00:00:00 [facility] IM 6+ MO [facility] Influenza Virus 2020-01-21 Completed [facility] Vaccine Quad .5 mL 00:00:00 [facility] IM 6+ MO [facility] Influenza Virus 2020-01-21 Completed [facility] Vaccine Quad .5 mL 00:00:00 [facility] IM 6+ MO [facility] Influenza Virus 2020-01-21 Completed [facility] Vaccine Quad .5 mL 00:00:00 [facility] IM 6+ MO [facility] Influenza Virus 2020-01-21 Completed [facility] Vaccine Quad .5 mL 00:00:00 [facility] IM 6+ MO [facility] Influenza Virus 2020-01-21 Completed [facility] Vaccine Quad .5 mL 00:00:00 [facility] IM 6+ MO [facility] Influenza Virus 2020-01-21 Completed [facility] Vaccine Quad .5 mL 00:00:00 [facility] IM 6+ MO [facility] Influenza Virus 2020-01-21 Completed [facility] Vaccine Quad .5 mL 00:00:00 [facility] IM 6+ MO [facility] Influenza Virus 2020-01-21 Completed [facility] Vaccine Quad .5 mL 00:00:00 [facility] IM 6+ MO [facility] TDAP 2018-09-26 Completed [facility] of 00:00:00 [facility] TDAP 2018-09-26 Completed [facility] 00:00:00 [facility] TDAP 2018-09-26 Completed [facility] 00:00:00 [facility] TDAP 2018-09-26 Completed [facility] 00:00:00 [facility] TDAP 2018-09-26 Completed [facility] 00:00:00 [facility] TDAP 2018-09-26 Completed [facility] 00:00:00 [facility] TDAP 2018-09-26 Completed [facility] 00:00:00 [facility] TDAP 2018-09-26 Completed [facility] 00:00:00 [facility] TDAP 2018-09-26 Completed [facility] 00:00:00 [facility] TDAP 2018-09-26 Completed [facility] 00:00:00 [facility] TDAP 2018-09-26 Completed [facility] of 00:00:00 [facility] TDAP 2018-09-26 Completed [facility] 00:00:00 [facility] TDAP 2018-09-26 Completed [facility] 00:00:00 [facility] TDAP 2018-09-26 Completed [facility] 00:00:00 [facility] TDAP 2018-09-26 Completed [facility] of 00:00:00 [facility] TDAP 2018-09-26 Completed [facility] 00:00:00 [facility] TDAP 2018-09-26 Completed [facility] 00:00:00 [facility] TDAP 2018-09-26 Completed [facility] of 00:00:00 [facility] TDAP 2018-09-26 Completed [facility] 00:00:00 [facility] TDAP 2018-09-26 Completed [facility] of 00:00:00 [facility] TDAP 2018-09-26 Completed [facility] of 00:00:00 [facility] Influenza Virus 2018-04-21 Completed [facility]it y of Vaccine Quad .5 mL 00:00:00 [facility] IM 6+ MO Branch Influenza Virus 2018-04-21 Completed [facility] of Vaccine Quad .5 mL 00:00:00 [facility] IM 6+ MO Branch Influenza Virus 2018-04-21 Completed [facility] of Vaccine Quad .5 mL 00:00:00 [facility] IM 6+ MO [facility] Influenza Virus 2018-04-21 Completed [facility] of Vaccine Quad .5 mL 00:00:00 [facility] IM 6+ MO [facility] Influenza Virus 2018-04-21 Completed [facility] of Vaccine Quad .5 mL 00:00:00 [facility] IM 6+ MO [facility] Influenza Virus 2018-04-21 Completed [facility] of Vaccine Quad .5 mL 00:00:00 [facility] IM 6+ MO [facility] Influenza Virus 2018-04-21 Completed [facility] of Vaccine Quad .5 mL 00:00:00 [facility] IM 6+ MO [facility] Influenza Virus 2018-04-21 Completed [facility] of Vaccine Quad .5 mL 00:00:00 [facility] IM 6+ MO [facility] Influenza Virus 2018-04-21 Completed [facility] of Vaccine Quad .5 mL 00:00:00 [facility] IM 6+ MO [facility] Influenza Virus 2018-04-21 Completed [facility] of Vaccine Quad .5 mL 00:00:00 [facility] IM 6+ MO [facility] Influenza Virus 2018-04-21 Completed [facility] of Vaccine Quad .5 mL 00:00:00 [facility] IM 6+ MO [facility] Influenza Virus 2018-04-21 Completed [facility] of Vaccine Quad .5 mL 00:00:00 [facility] IM 6+ MO [facility] Influenza Virus 2018-04-21 Completed [facility] of Vaccine Quad .5 mL 00:00:00 [facility] IM 6+ MO [facility] Influenza Virus 2018-04-21 Completed [facility] of Vaccine Quad .5 mL 00:00:00 [facility] IM 6+ MO [facility] Influenza Virus 2018-04-21 Completed [facility] of Vaccine Quad .5 mL 00:00:00 [facility] IM 6+ MO [facility] Influenza Virus 2018-04-21 Completed [facility] of Vaccine Quad .5 mL 00:00:00 [facility] IM 6+ MO [facility] Influenza Virus 2018-04-21 Completed [facility] of Vaccine Quad .5 mL 00:00:00 [facility] IM 6+ MO [facility] Influenza Virus 2018-04-21 Completed [facility] of Vaccine Quad .5 mL 00:00:00 [facility] IM 6+ MO [facility] Influenza Virus 2018-04-21 Completed [facility] of Vaccine Quad .5 mL 00:00:00 [facility] IM 6+ MO [facility] Influenza Virus 2018-04-21 Completed [facility] of Vaccine Quad .5 mL 00:00:00 [facility] IM 6+ MO Branch Influenza Virus 2018-04-21 Completed [facility]it y of Vaccine Quad .5 mL 00:00:00 [facility] IM 6+ MO Branch HPV9 2016-02-13 Completed University of 00:00:00 [facility] HPV9 2016-02-13 Completed University of 00:00:00 [facility] HPV9 2016-02-13 Completed [facility] of 00:00:00 [facility] HPV9 2016-02-13 Completed University of 00:00:00 [facility] HPV9 2016-02-13 Completed University of 00:00:00 [facility] HPV9 2016-02-13 Completed University of 00:00:00 [facility] HPV9 2016-02-13 Completed [facility] of 00:00:00 [facility] HPV9 2016-02-13 Completed [facility] of 00:00:00 [facility] HPV9 2016-02-13 Completed University of 00:00:00 [facility] HPV9 2016-02-13 Completed University of 00:00:00 [facility] HPV9 2016-02-13 Completed [facility] of 00:00:00 [facility] HPV9 2016-02-13 Completed University of 00:00:00 [facility] HPV9 2016-02-13 Completed [facility] of 00:00:00 [facility] HPV9 2016-02-13 Completed [facility] of 00:00:00 [facility] HPV9 2016-02-13 Completed [facility] of 00:00:00 [facility] HPV9 2016-02-13 Completed [facility] of 00:00:00 [facility] HPV9 2016-02-13 Completed University of 00:00:00 [facility] HPV9 2016-02-13 Completed University of 00:00:00 [facility] HPV9 2016-02-13 Completed University of 00:00:00 [facility] HPV9 2016-02-13 Completed University of 00:00:00 [facility] HPV9 2016-02-13 Completed University of 00:00:00 [facility] HPV 2015-01-17 Completed University of 00:00:00 [facility] Meningococcal 2015-01-17 Completed University of Vaccine 00:00:00 [facility] HPV 2015-01-17 Completed University of 00:00:00 [facility] Meningococcal 2015-01-17 Completed University of Vaccine 00:00:00 [facility] HPV 2015-01-17 Completed University of 00:00:00 [facility] Meningococcal 2015-01-17 Completed University of Vaccine 00:00:00 [facility] HPV 2015-01-17 Completed [facility] 00:00:00 [facility] Meningococcal 2015-01-17 Completed University of Vaccine 00:00:00 [facility] HPV 2015-01-17 Completed [facility] of 00:00:00 [facility] Meningococcal 2015-01-17 Completed [facility] of Vaccine 00:00:00 [facility] HPV 2015-01-17 Completed [facility] of 00:00:00 [facility] Meningococcal 2015-01-17 Completed University of Vaccine 00:00:00 [facility] HPV 2015-01-17 Completed University of 00:00:00 [facility] Meningococcal 2015-01-17 Completed University of Vaccine 00:00:00 [facility] HPV 2015-01-17 Completed [facility] of 00:00:00 [facility] Meningococcal 2015-01-17 Completed University of Vaccine 00:00:00 [facility] HPV 2015-01-17 Completed [facility] of 00:00:00 [facility] Meningococcal 2015-01-17 Completed University of Vaccine 00:00:00 [facility] HPV 2015-01-17 Completed [facility] of 00:00:00 [facility] Meningococcal 2015-01-17 Completed [facility] of Vaccine 00:00:00 [facility] HPV 2015-01-17 Completed [facility] of 00:00:00 [facility] Meningococcal 2015-01-17 Completed [facility] of Vaccine 00:00:00 [facility] HPV 2015-01-17 Completed [facility] of 00:00:00 [facility] Meningococcal 2015-01-17 Completed [facility] of Vaccine 00:00:00 [facility] HPV 2015-01-17 Completed [facility] of 00:00:00 [facility] Meningococcal 2015-01-17 Completed [facility] of Vaccine 00:00:00 [facility] HPV 2015-01-17 Completed [facility] of 00:00:00 [facility] Meningococcal 2015-01-17 Completed [facility] of Vaccine 00:00:00 [facility] HPV 2015-01-17 Completed [facility] 00:00:00 [facility] Meningococcal 2015-01-17 Completed [facility] of Vaccine 00:00:00 [facility] HPV 2015-01-17 Completed [facility] 00:00:00 [facility] Meningococcal 2015-01-17 Completed [facility] Vaccine 00:00:00 [facility] HPV 2015-01-17 Completed University of 00:00:00 [facility] Meningococcal 2015-01-17 Completed University of Vaccine 00:00:00 [facility] HPV 2015-01-17 Completed University of 00:00:00 [facility] Meningococcal 2015-01-17 Completed [facility] of Vaccine 00:00:00 [facility] HPV 2015-01-17 Completed [facility] of 00:00:00 [facility] Meningococcal 2015-01-17 Completed [facility] of Vaccine 00:00:00 [facility] HPV 2015-01-17 Completed [facility] of 00:00:00 [facility] Meningococcal 2015-01-17 Completed [facility] of Vaccine 00:00:00 [facility] HPV 2015-01-17 Completed [facility] of 00:00:00 [facility] Meningococcal 2015-01-17 Completed University of Vaccine 00:00:00 [facility] Varicella 2011-03-01 Completed University of (varivax)(chicken 00:00:00 [place] [facility] pox[facility] Varicella 2011-03-01 Completed [facility] (varivax)(chicken 00:00:00 [place] [facility] Varicella 2011-03-01 Completed [facility] (varivax)(chicken 00:00:00 [facility] pox[facility] Varicella 2011-03-01 Completed [facility] (varivax)(chicken 00:00:00 [facility] pox[facility] Varicella 2011-03-01 Completed [facility] (varivax)(chicken 00:00:00 [place] [facility] pox[facility] HPV 2009-11-17 Completed [facility] 00:00:00 [facility] Meningococcal 2009-11-17 Completed University of Vaccine 00:00:00 [facility] TDAP 2009-11-17 Completed [facility] of 00:00:00 [facility] HPV 2009-11-17 Completed [facility] of 00:00:00 [facility] Meningococcal 2009-11-17 Completed University of Vaccine 00:00:00 [facility] TDAP 2009-11-17 Completed [facility] of 00:00:00 [facility] HPV 2009-11-17 Completed [facility] of 00:00:00 [facility] Meningococcal 2009-11-17 Completed University of Vaccine 00:00:00 [facility] TDAP 2009-11-17 Completed [facility] of 00:00:00 [facility] HPV 2009-11-17 Completed [facility] of 00:00:00 [facility] Meningococcal 2009-11-17 Completed [facility] of Vaccine 00:00:00 [facility] TDAP 2009-11-17 Completed [facility] of 00:00:00 [facility] HPV 2009-11-17 Completed [facility] of 00:00:00 [facility] Meningococcal 2009-11-17 Completed University of Vaccine 00:00:00 [facility] TDAP 2009-11-17 Completed [facility] of 00:00:00 [facility] HPV 2009-11-17 Completed University of 00:00:00 [facility] Meningococcal 2009-11-17 Completed University of Vaccine 00:00:00 [facility] TDAP 2009-11-17 Completed [facility] of 00:00:00 [facility] HPV 2009-11-17 Completed [facility] of 00:00:00 [facility] Meningococcal 2009-11-17 Completed [facility] of Vaccine 00:00:00 [facility] TDAP 2009-11-17 Completed [facility] of 00:00:00 [facility] HPV 2009-11-17 Completed [facility] of 00:00:00 [facility] Meningococcal 2009-11-17 Completed [facility] of Vaccine 00:00:00 [facility] TDAP 2009-11-17 Completed [facility] of 00:00:00 [facility] HPV 2009-11-17 Completed [facility] of 00:00:00 [facility] Meningococcal 2009-11-17 Completed University of Vaccine 00:00:00 [facility] TDAP 2009-11-17 Completed [facility] of 00:00:00 [facility] HPV 2009-11-17 Completed [facility] of 00:00:00 [facility] Meningococcal 2009-11-17 Completed University of Vaccine 00:00:00 [facility] TDAP 2009-11-17 Completed [facility] of 00:00:00 [facility] HPV 2009-11-17 Completed [facility] of 00:00:00 [facility] Meningococcal 2009-11-17 Completed [facility] of Vaccine 00:00:00 [facility] TDAP 2009-11-17 Completed [facility] of 00:00:00 [facility] HPV 2009-11-17 Completed [facility] of 00:00:00 [facility] Meningococcal 2009-11-17 Completed [facility] of Vaccine 00:00:00 [facility] TDAP 2009-11-17 Completed [facility] of 00:00:00 [facility] HPV 2009-11-17 Completed [facility] of 00:00:00 [facility] Meningococcal 2009-11-17 Completed [facility] of Vaccine 00:00:00 [facility] TDAP 2009-11-17 Completed [facility] of 00:00:00 [facility] HPV 2009-11-17 Completed [facility] of 00:00:00 [facility] Meningococcal 2009-11-17 Completed [facility] of Vaccine 00:00:00 [facility] TDAP 2009-11-17 Completed [facility] of 00:00:00 [facility] HPV 2009-11-17 Completed [facility] of 00:00:00 [facility] Meningococcal 2009-11-17 Completed [facility] of Vaccine 00:00:00 [facility] TDAP 2009-11-17 Completed [facility] of 00:00:00 [facility] HPV 2009-11-17 Completed [facility] of 00:00:00 [facility] Meningococcal 2009-11-17 Completed [facility] of Vaccine 00:00:00 [facility] TDAP 2009-11-17 Completed [facility] of 00:00:00 [facility] HPV 2009-11-17 Completed [facility] of 00:00:00 [facility] Meningococcal 2009-11-17 Completed [facility] of Vaccine 00:00:00 [facility] TDAP 2009-11-17 Completed [facility] of 00:00:00 [facility] HPV 2009-11-17 Completed [facility] of 00:00:00 [facility] Meningococcal 2009-11-17 Completed [facility] of Vaccine 00:00:00 [facility] TDAP 2009-11-17 Completed [facility] of 00:00:00 [facility] HPV 2009-11-17 Completed [facility] of 00:00:00 [facility] Meningococcal 2009-11-17 Completed [facility] of Vaccine 00:00:00 [facility] TDAP 2009-11-17 Completed [facility] of 00:00:00 [facility] HPV 2009-11-17 Completed [facility] of 00:00:00 [facility] Meningococcal 2009-11-17 Completed [facility] of Vaccine 00:00:00 [facility] TDAP 2009-11-17 Completed [facility] of 00:00:00 [facility] HPV 2009-11-17 Completed [facility] of 00:00:00 [facility] Meningococcal 2009-11-17 Completed [facility] of Vaccine 00:00:00 [facility] TDAP 2009-11-17 Completed [facility] of 00:00:00 [facility] DTAP 2002-04-05 Completed [facility] of 00:00:00 [facility] MMR 2002-04-05 Completed [facility] of 00:00:00 [facility] Polio (IPV/OPV) 2002-04-05 Completed [facility]it [facility] 00:00:00 [facility] DTAP 2002-04-05 Completed [facility] 00:00:00 [facility] MMR 2002-04-05 Completed [facility] 00:00:00 [facility] Polio (IPV/OPV) 2002-04-05 Completed [facility] 00:00:00 [facility] DTAP 2002-04-05 Completed [facility] of 00:00:00 [facility] MMR 2002-04-05 Completed [facility] of 00:00:00 [facility] Polio (IPV/OPV) 2002-04-05 Completed [facility] of 00:00:00 [facility] DTAP 2002-04-05 Completed [facility] of 00:00:00 [facility] MMR 2002-04-05 Completed [facility] of 00:00:00 [facility] Polio (IPV/OPV) 2002-04-05 Completed [facility] of 00:00:00 [facility] DTAP 2002-04-05 Completed [facility] of 00:00:00 [facility] MMR 2002-04-05 Completed [facility] of 00:00:00 [facility] Polio (IPV/OPV) 2002-04-05 Completed [facility] of 00:00:00 [facility] DTAP 2002-04-05 Completed [facility] of 00:00:00 [facility] MMR 2002-04-05 Completed [facility] of 00:00:00 [facility] Polio (IPV/OPV) 2002-04-05 Completed [facility] y of 00:00:00 [facility] DTAP 2002-04-05 Completed [facility] of 00:00:00 [facility] MMR 2002-04-05 Completed [facility] of 00:00:00 [facility] Polio (IPV/OPV) 2002-04-05 Completed [facility] of 00:00:00 [facility] DTAP 2002-04-05 Completed [facility] 00:00:00 [facility] MMR 2002-04-05 Completed [facility] of 00:00:00 [facility] Polio (IPV/OPV) 2002-04-05 Completed [facility] of 00:00:00 [facility] DTAP 2002-04-05 Completed [facility] of 00:00:00 [facility] MMR 2002-04-05 Completed [facility] of 00:00:00 [facility] Polio (IPV/OPV) 2002-04-05 Completed [facility] of 00:00:00 [facility] DTAP 2002-04-05 Completed [facility] of 00:00:00 [facility] MMR 2002-04-05 Completed [facility] of 00:00:00 [facility] Polio (IPV/OPV) 2002-04-05 Completed [facility] y of 00:00:00 [facility] DTAP 2002-04-05 Completed [facility] 00:00:00 [facility] MMR 2002-04-05 Completed [facility] 00:00:00 [facility] Polio (IPV/OPV) 2002-04-05 Completed [facility] of 00:00:00 [facility] DTAP 2002-04-05 Completed [facility] 00:00:00 [facility] MMR 2002-04-05 Completed [facility] 00:00:00 [facility] Polio (IPV/OPV) 2002-04-05 Completed [facility] of 00:00:00 [facility] DTAP 2002-04-05 Completed [facility] 00:00:00 [facility] MMR 2002-04-05 Completed [facility] 00:00:00 [facility] Polio (IPV/OPV) 2002-04-05 Completed [facility] of 00:00:00 [facility] DTAP 2002-04-05 Completed [facility] 00:00:00 [facility] MMR 2002-04-05 Completed [facility] 00:00:00 [facility] Polio (IPV/OPV) 2002-04-05 Completed [facility] of 00:00:00 [facility] DTAP 2002-04-05 Completed [facility] 00:00:00 [facility] MMR 2002-04-05 Completed [facility] of 00:00:00 [facility] Polio (IPV/OPV) 2002-04-05 Completed [facility] of 00:00:00 [facility] DTAP 2002-04-05 Completed [facility] 00:00:00 [facility] MMR 2002-04-05 Completed [facility] 00:00:00 [facility] Polio (IPV/OPV) 2002-04-05 Completed [facility] 00:00:00 [facility] DTAP 2002-04-05 Completed [facility] 00:00:00 [facility] MMR 2002-04-05 Completed [facility] 00:00:00 [facility] Polio (IPV/OPV) 2002-04-05 Completed [facility] 00:[facility]:00 [facility] DTAP 2002-04-05 Completed [facility] 00:00:00 [facility] MMR 2002-04-05 Completed [facility] 00:00:00 [facility] Polio (IPV/OPV) 2002-04-05 Completed [facility] 00:00:00 [facility] DTAP 2002-04-05 Completed [facility] 00:00:00 [facility] MMR 2002-04-05 Completed [facility] 00:00:00 [facility] Polio (IPV/OPV) 2002-04-05 Completed [facility] 00:00:00 [facility] DTAP 2002-04-05 Completed [facility] 00:00:00 [facility] MMR 2002-04-05 Completed [facility] 00:00:00 [facility] Polio (IPV/OPV) 2002-04-05 Completed [facility] 00:00:00 [facility] DTAP 2002-04-05 Completed [facility] 00:00:00 [facility] MMR 2002-04-05 Completed [facility] 00:00:00 [facility] Polio (IPV/OPV) 2002-04-05 Completed [facility] 00:00:00 [facility] DTAP 2001-11-28 Completed [facility] 00:00:00 [facility] MMR 2001-11-28 Completed [facility] 00:00:00 [facility] Polio (IPV/OPV) 2001-11-28 Completed [facility] 00:00:00 [facility] Varicella 2001-11-28 Completed [facility] (varivax)(chicken 00:00:00 [place] [facility] DTAP 2001-11-28 Completed [facility] 00:00:00 [facility] MMR 2001-11-28 Completed [facility] 00:00:00 [facility] Polio (IPV/OPV) 2001-11-28 Completed [facility] 00:00:00 [facility] Varicella 2001-11-28 Completed [facility] (varivax)(chicken 00:00:00 [place] [facility] DTAP 2001-11-28 Completed [facility] 00:00:00 [facility] MMR 2001-11-28 Completed [facility] 00:00:00 [facility] Polio (IPV/OPV) 2001-11-28 Completed [facility] 00:00:00 [facility] Varicella 2001-11-28 Completed [facility] (varivax)(chicken 00:00:00 [place] [facility] DTAP 2001-11-28 Completed [facility] 00:00:00 [facility] MMR 2001-11-28 Completed [facility] 00:00:00 [facility] Polio (IPV/OPV) 2001-11-28 Completed [facility] 00:00:00 [facility] Varicella 2001-11-28 Completed [facility] (varivax)(chicken 00:00:00 [place] [facility] DTAP 2001-11-28 Completed [facility] 00:00:00 [facility] MMR 2001-11-28 Completed [facility] 00:00:00 [facility] Polio (IPV/OPV) 2001-11-28 Completed [facility] 00:00:00 [facility] Varicella 2001-11-28 Completed [facility] (varivax)(chicken 00:00:00 [place] [facility] DTAP 2001-11-28 Completed [facility] 00:00:00 [facility] MMR 2001-11-28 Completed [facility] 00:00:00 [facility] Polio (IPV/OPV) 2001-11-28 Completed [facility] 00:00:00 [facility] Varicella 2001-11-28 Completed [facility] (varivax)(chicken 00:00:00 [place] [facility] DTAP 2001-11-28 Completed [facility] 00:00:00 [facility] MMR 2001-11-28 Completed [facility] 00:00:00 [facility] Polio (IPV/OPV) 2001-11-28 Completed [facility] 00:00:00 [facility] Varicella 2001-11-28 Completed [facility] (varivax)(chicken 00:00:00 [place] [facility] DTAP 2001-11-28 Completed [facility] 00:00:00 [facility] MMR 2001-11-28 Completed [facility] 00:00:00 [facility] Polio (IPV/OPV) 2001-11-28 Completed [facility] 00:00:00 [facility] Varicella 2001-11-28 Completed [facility] (varivax)(chicken 00:00:00 [place] [facility] DTAP 2001-11-28 Completed [facility] 00:00:00 [facility] MMR 2001-11-28 Completed [facility] 00:00:00 [facility] Polio (IPV/OPV) 2001-11-28 Completed [facility] 00:00:00 [facility] Varicella 2001-11-28 Completed [facility] (varivax)(chicken 00:00:00 [place] [facility] DTAP 2001-11-28 Completed [facility] 00:00:00 [facility] MMR 2001-11-28 Completed [facility] 00:00:00 [facility] Polio (IPV/OPV) 2001-11-28 Completed [facility] 00:00:00 [facility] Varicella 2001-11-28 Completed [facility] (varivax)(chicken 00:00:00 [place] [facility] DTAP 2001-11-28 Completed [facility] 00:00:00 [facility] MMR 2001-11-28 Completed [facility] 00:00:00 [facility] Polio (IPV/OPV) 2001-11-28 Completed [facility] 00:00:00 [facility] Varicella 2001-11-28 Completed [facility] (varivax)(chicken 00:00:00 [place] [facility] DTAP 2001-11-28 Completed [facility] 00:00:00 [facility] MMR 2001-11-28 Completed [facility] 00:00:00 [facility] Polio (IPV/OPV) 2001-11-28 Completed [facility] 00:00:00 [facility] Varicella 2001-11-28 Completed [facility] (varivax)(chicken 00:00:00 [place] [facility] DTAP 2001-11-28 Completed [facility] 00:00:00 [facility] MMR 2001-11-28 Completed [facility] 00:00:00 [facility] Polio (IPV/OPV) 2001-11-28 Completed [facility] 00:00:00 [facility] Varicella 2001-11-28 Completed [facility] (varivax)(chicken 00:00:00 [place] [facility] DTAP 2001-11-28 Completed [facility] 00:00:00 [facility] MMR 2001-11-28 Completed [facility] 00:00:00 [facility] Polio (IPV/OPV) 2001-11-28 Completed [facility] 00:00:00 [facility] Varicella 2001-11-28 Completed [facility] (varivax)(chicken 00:00:00 [place] [facility] DTAP 2001-11-28 Completed [facility] 00:00:00 [facility] MMR 2001-11-28 Completed [facility] 00:00:00 [facility] Polio (IPV/OPV) 2001-11-28 Completed [facility] 00:00:00 [facility] Varicella 2001-11-28 Completed [facility] (varivax)(chicken 00:00:00 [place] [facility] DTAP 2001-11-28 Completed [facility] 00:00:00 [facility] MMR 2001-11-28 Completed [facility] 00:00:00 [facility] Polio (IPV/OPV) 2001-11-28 Completed [facility] 00:00:00 [facility] Varicella 2001-11-28 Completed [facility] (varivax)(chicken 00:00:00 [place] [facility] DTAP 2001-11-28 Completed [facility] 00:00:00 [facility] MMR 2001-11-28 Completed [facility] 00:00:00 [facility] Polio (IPV/OPV) 2001-11-28 Completed [facility] 00:00:00 [facility] Varicella 2001-11-28 Completed [facility] (varivax)(chicken 00:00:00 [place] [facility] DTAP 2001-11-28 Completed [facility] 00:00:00 [facility] MMR 2001-11-28 Completed [facility] 00:00:00 [facility] Polio (IPV/OPV) 2001-11-28 Completed [facility] 00:00:00 [facility] Varicella 2001-11-28 Completed [facility] (varivax)(chicken 00:00:00 [place] [facility] DTAP 2001-11-28 Completed [facility] 00:00:00 [facility] MMR 2001-11-28 Completed [facility] 00:00:00 [facility] Polio (IPV/OPV) 2001-11-28 Completed [facility] 00:00:00 [facility] Varicella 2001-11-28 Completed [facility] (varivax)(chicken 00:00:00 [place] [facility] DTAP 2001-11-28 Completed [facility] 00:00:00 [facility] MMR 2001-11-28 Completed [facility] 00:00:00 [facility] Polio (IPV/OPV) 2001-11-28 Completed [facility] 00:00:00 [facility] Varicella 2001-11-28 Completed [facility] (varivax)(chicken 00:00:00 [place] [facility] DTAP 2001-11-28 Completed [facility] 00:00:00 [facility] MMR 2001-11-28 Completed [facility] 00:00:00 [facility] Polio (IPV/OPV) 2001-11-28 Completed [facility] 00:00:00 [facility] Varicella 2001-11-28 Completed [facility] (varivax)(chicken 00:00:00 [...] (varivax)(chicken 00:00:00 [place] [facility] HIB 4 Dose Schedule 1999-11-18 Completed [facility] 00:00:00 [facility] Hep B, Adol or Pedi 1999-11-18 Completed [facility] Dosage 00:00:00 [facility] Polio (IPV/OPV) 1999-11-18 Completed [facility] 00:00:00 [facility] DTAP 1999-11-18 Completed [facility] 00:00:00 [facility] HIB 4 Dose Schedule 1999-11-18 Completed [facility] 00:00:00 [facility] Hep B, Adol or Pedi 1999-11-18 Completed [facility] Dosage 00:00:00 [facility] Polio (IPV/OPV) 1999-11-18 Completed [facility] 00:00:00 [facility] DTAP 1999-11-18 Completed [facility] 00:00:00 [facility] HIB 4 Dose Schedule 1999-11-18 Completed [facility] 00:00:00 [facility] Hep B, Adol or Pedi 1999-11-18 Completed [facility] Dosage 00:00:00 [facility] Polio (IPV/OPV) 1999-11-18 Completed [facility] 00:00:00 [facility] DTAP 1999-11-18 Completed [facility] 00:00:00 [facility] HIB 4 Dose Schedule 1999-11-18 Completed [facility] 00:00:00 [facility] Hep B, Adol or Pedi 1999-11-18 Completed [facility] Dosage 00:00:00 [facility] Polio (IPV/OPV) 1999-11-18 Completed [facility] 00:00:00 [facility] DTAP 1999-11-18 Completed [facility] 00:00:00 [facility] HIB 4 Dose Schedule 1999-11-18 Completed [facility] 00:00:00 [facility] Hep B, Adol or Pedi 1999-11-18 Completed [facility] Dosage 00:00:00 [facility] Polio (IPV/OPV) 1999-11-18 Completed [facility] 00:00:00 [facility] DTAP 1999-11-18 Completed [facility] 00:00:00 [facility] HIB 4 Dose Schedule 1999-11-18 Completed [facility] 00:00:00 [facility] Hep B, Adol or Pedi 1999-11-18 Completed [facility] Dosage 00:00:00 [facility] Polio (IPV/OPV) 1999-11-18 Completed [facility] 00:00:00 [facility] DTAP 1999-11-18 Completed [facility] 00:00:00 [facility] HIB 4 Dose Schedule 1999-11-18 Completed [facility] 00:00:00 [facility] Hep B, Adol or Pedi 1999-11-18 Completed [facility] Dosage 00:00:00 [facility] Polio (IPV/OPV) 1999-11-18 Completed [facility] 00:00:00 [facility] DTAP 1999-11-18 Completed [facility] 00:00:00 [facility] HIB 4 Dose Schedule 1999-11-18 Completed [facility] 00:00:00 [facility] Hep B, Adol or Pedi 1999-11-18 Completed [facility] Dosage 00:00:00 [facility] Polio (IPV/OPV) 1999-11-18 Completed [facility] 00:00:00 [facility] DTAP 1999-11-18 Completed [facility] 00:00:00 [facility] HIB 4 Dose Schedule 1999-11-18 Completed [facility] 00:00:00 [facility] Hep B, Adol or Pedi 1999-11-18 Completed [facility] Dosage 00:00:00 [facility] Polio (IPV/OPV) 1999-11-18 Completed [facility] 00:00:00 [facility] DTAP 1999-11-18 Completed [facility] 00:00:00 [facility] HIB 4 Dose Schedule 1999-11-18 Completed [facility] 00:00:00 [facility] Hep B, Adol or Pedi 1999-11-18 Completed [facility] Dosage 00:00:00 [facility] Polio (IPV/OPV) 1999-11-18 Completed [facility] 00:00:00 [facility] DTAP 1999-11-18 Completed [facility] 00:00:00 [facility] HIB 4 Dose Schedule 1999-11-18 Completed [facility] 00:00:00 [facility] Hep B, Adol or Pedi 1999-11-18 Completed [facility] Dosage 00:00:00 [facility] Polio (IPV/OPV) 1999-11-18 Completed [facility] 00:00:00 [facility] DTAP 1999-11-18 Completed [facility] 00:00:00 [facility] HIB 4 Dose Schedule 1999-11-18 Completed [facility] 00:00:00 [facility] Hep B, Adol or Pedi 1999-11-18 Completed [facility] Dosage 00:00:00 [facility] Polio (IPV/OPV) 1999-11-18 Completed [facility] 00:00:00 [facility] DTAP 1999-11-18 Completed [facility] 00:00:00 [facility] HIB 4 Dose Schedule 1999-11-18 Completed [facility] 00:00:00 [facility] Hep B, Adol or Pedi 1999-11-18 Completed [facility] Dosage 00:00:00 [facility] Polio (IPV/OPV) 1999-11-18 Completed [facility] 00:00:00 [facility] DTAP 1999-11-18 Completed [facility] 00:00:00 [facility] HIB 4 Dose Schedule 1999-11-18 Completed [facility] 00:00:00 [facility] Hep B, Adol or Pedi 1999-11-18 Completed [facility] Dosage 00:00:00 [facility] Polio (IPV/OPV) 1999-11-18 Completed [facility] 00:00:00 [facility] DTAP 1999-11-18 Completed [facility] 00:00:00 [facility] HIB 4 Dose Schedule 1999-11-18 Completed [facility] 00:00:00 [facility] Hep B, Adol or Pedi 1999-11-18 Completed [facility] Dosage 00:00:00 [facility] Polio (IPV/OPV) 1999-11-18 Completed [facility] 00:00:00 [facility] DTAP 1999-11-18 Completed [facility] 00:00:00 [facility] HIB 4 Dose Schedule 1999-11-18 Completed [facility] 00:00:00 [facility] Hep B, Adol or Pedi 1999-11-18 Completed [facility] Dosage 00:00:00 [facility] Polio (IPV/OPV) 1999-11-18 Completed [facility] 00:00:00 [facility] DTAP 1999-11-18 Completed [facility] 00:00:00 [facility] HIB 4 Dose Schedule 1999-11-18 Completed [facility] 00:00:00 [facility] Hep B, Adol or Pedi 1999-11-18 Completed [facility] Dosage 00:00:00 [facility] Polio (IPV/OPV) 1999-11-18 Completed [facility] 00:00:00 [facility] DTAP 1999-11-18 Completed [facility] 00:00:00 [facility] HIB 4 Dose Schedule 1999-11-18 Completed [facility] 00:00:00 [facility] Hep B, Adol or Pedi 1999-11-18 Completed [facility] Dosage 00:00:00 [facility] Polio (IPV/OPV) 1999-11-18 Completed [facility] 00:00:00 [facility] DTAP 1999-11-18 Completed [facility] 00:00:00 [facility] HIB 4 Dose Schedule 1999-11-18 Completed [facility] 00:00:00 [facility] Hep B, Adol or Pedi 1999-11-18 Completed [facility] Dosage 00:00:00 [facility] Polio (IPV/OPV) 1999-11-18 Completed [facility] 00:00:00 [facility] DTAP 1999-11-18 Completed [facility] 00:00:00 [facility] HIB 4 Dose Schedule 1999-11-18 Completed [facility] 00:00:00 [facility] Hep B, Adol or Pedi 1999-11-18 Completed [facility] Dosage 00:00:00 [facility] Polio (IPV/OPV) 1999-11-18 Completed [facility] 00:00:00 [facility] DTAP 1999-11-18 Completed [facility] 00:00:00 [facility] HIB 4 Dose Schedule 1999-11-18 Completed [facility] 00:00:00 [facility] Hep B, Adol or Pedi 1999-11-18 Completed [facility] Dosage 00:00:00 [facility] Polio (IPV/OPV) 1999-11-18 Completed [facility] 00:00:00 [facility] DTAP 1999-11-18 Completed [facility] 00:00:00 [facility] DTAP 1998 Completed [facility] 00:00:00 [facility] HIB 4 Dose Schedule 1998 Completed [facility] 00:00:00 [facility] Hep B, Adol or Pedi 1998 Completed [facility] Dosage 00:00:00 [facility] Polio (IPV/OPV) 1998 Completed [facility] 00:00:00 [facility] DTAP 1998 Completed [facility] 00:00:00 [facility] HIB 4 Dose Schedule 1998 Completed [facility] 00:00:00 [facility] Hep B, Adol or Pedi 1998 Completed [facility] Dosage 00:00:00 [facility] Polio (IPV/OPV) 1998 Completed [facility] 00:00:00 [facility] DTAP 1998 Completed [facility] 00:00:00 [facility] HIB 4 Dose Schedule 1998 Completed [facility] 00:00:00 [facility] Hep B, Adol or Pedi 1998 Completed [facility] Dosage 00:00:00 [facility] Polio (IPV/OPV) 1998 Completed [facility] 00:00:00 [facility] DTAP 1998 Completed [facility] 00:00:00 [facility] HIB 4 Dose Schedule 1998 Completed [facility] 00:00:00 [facility] Hep B, Adol or Pedi 1998 Completed [facility] Dosage 00:00:00 [facility] Polio (IPV/OPV) 1998 Completed [facility] 00:00:00 [facility] DTAP 1998 Completed [facility] 00:00:00 [facility] HIB 4 Dose Schedule 1998 Completed [facility] 00:00:00 [facility] Hep B, Adol or Pedi 1998 Completed [facility] Dosage 00:00:00 [facility] Polio (IPV/OPV) 1998 Completed [facility] 00:00:00 [facility] DTAP 1998 Completed [facility] 00:00:00 [facility] HIB 4 Dose Schedule 1998 Completed [facility] 00:00:00 [facility] Hep B, Adol or Pedi 1998 Completed [facility] Dosage 00:00:00 [facility] Polio (IPV/OPV) 1998 Completed [facility] 00:00:00 [facility] DTAP 1998 Completed [facility] 00:00:00 [facility] HIB 4 Dose Schedule 1998 Completed [facility] 00:00:00 [facility] Hep B, Adol or Pedi 1998 Completed [facility] Dosage 00:00:00 [facility] Polio (IPV/OPV) 1998 Completed [facility] 00:00:00 [facility] DTAP 1998 Completed [facility] 00:00:00 [facility] HIB 4 Dose Schedule 1998 Completed [facility] 00:00:00 [facility] Hep B, Adol or Pedi 1998 Completed [facility] Dosage 00:00:00 [facility] Polio (IPV/OPV) 1998 Completed [facility] 00:00:00 [facility] DTAP 1998 Completed [facility] 00:00:00 [facility] HIB 4 Dose Schedule 1998 Completed [facility] 00:00:00 [facility] Hep B, Adol or Pedi 1998 Completed [facility] Dosage 00:00:00 [facility] Polio (IPV/OPV) 1998 Completed [facility] 00:00:00 [facility] DTAP 1998 Completed [facility] 00:00:00 [facility] HIB 4 Dose Schedule 1998 Completed [facility] 00:00:00 [facility] Hep B, Adol or Pedi 1998 Completed [facility] Dosage 00:00:00 [facility] Polio (IPV/OPV) 1998 Completed [facility] 00:00:00 [facility] DTAP 1998 Completed [facility] 00:00:00 [facility] HIB 4 Dose Schedule 1998 Completed [facility] 00:00:00 [facility] Hep B, Adol or Pedi 1998 Completed [facility] Dosage 00:00:00 [facility] Polio (IPV/OPV) 1998 Completed [facility] 00:00:00 [facility] DTAP 1998 Completed [facility] 00:00:00 [facility] HIB 4 Dose Schedule 1998 Completed [facility] 00:00:00 [facility] Hep B, Adol or Pedi 1998 Completed [facility] Dosage 00:00:00 [facility] Polio (IPV/OPV) 1998 Completed [facility] 00:00:00 [facility] DTAP 1998 Completed [facility] 00:00:00 [facility] HIB 4 Dose Schedule 1998 Completed [facility] 00:00:00 [facility] Hep B, Adol or Pedi 1998 Completed [facility] Dosage 00:00:00 [facility] Polio (IPV/OPV) 1998 Completed [facility] 00:00:00 [facility] DTAP 1998 Completed [facility] 00:00[facility]00 [facility] [facility] HIB 4 Dose Schedule 1998 Completed Unive rsity of 00:00:00 [facility] Hep B, Adol or Pedi 1998 Completed Unive rsity of Dosage 00:00:00 [facility] Polio (IPV/OPV) 1998 Completed Universit y of 00:00:00 [facility] DTAP 1998 Completed University of 00:00:00 [facility] HIB 4 Dose Schedule 1998 Completed Unive rsity of 00:00:00 [facility] Hep B, Adol or Pedi 1998 Completed Unive rsity of Dosage 00:00:00 [facility] Polio (IPV/OPV) 1998 Completed Universit y of 00:00:00 [facility] DTAP 1998 Completed University of 00:00:00 [facility] HIB 4 Dose Schedule 1998 Completed Unive rsity of 00:00:00 [facility] Hep B, Adol or Pedi 1998 Completed Unive rsity of Dosage 00:00:00 [facility] Polio (IPV/OPV) 1998 Completed Universit y of 00:00:00 [facility] DTAP 1998 Completed University of 00:00:00 [facility] HIB 4 Dose Schedule 1998 Completed Unive rsity of 00:00:00 [facility] Hep B, Adol or Pedi 1998 Completed Unive rsity of Dosage 00:00:00 [facility] Polio (IPV/OPV) 1998 Completed Universit y of 00:00:00 [facility] DTAP 1998 Completed University of 00:00:00 [facility] HIB 4 Dose Schedule 1998 Completed Unive rsity of 00:00:00 [facility] Hep B, Adol or Pedi 1998 Completed Unive rsity of Dosage 00:00:00 [facility] Polio (IPV/OPV) 1998 Completed Universit y of 00:00:00 [facility] DTAP 1998 Completed University of 00:00:00 [facility] HIB 4 Dose Schedule 1998 Completed Unive rsity of 00:00:00 [facility] Hep B, Adol or Pedi 1998 Completed Unive rsity of Dosage 00:00:00 [facility] Polio (IPV/OPV) 1998 Completed Universit y of 00:00:00 [facility] DTAP 1998 Completed University of 00:00:00 [facility] HIB 4 Dose Schedule 1998 Completed Unive rsity of 00:00:00 [facility] Hep B, Adol or Pedi 1998 Completed Unive rsity of Dosage 00:00:00 [facility] Polio (IPV/OPV) 1998 Completed Universit y of 00:00:00 [facility] DTAP 1998 Completed University of 00:00:00 [facility] HIB 4 Dose Schedule 1998 Completed Unive rsity of 00:00:00 [facility] Hep B, Adol or Pedi 1998 Completed Unive rsity of Dosage 00:00:00 [facility] Polio (IPV/OPV) 1998 Completed Universit y of 00:00:00 [facility] Hep B, Adol or Pedi 1998 Completed Unive rsity of Dosage 00:00:00 [facility] Hep B, Adol or Pedi 1998 Completed Unive rsity of Dosage 00:00:00 [facility] Hep B, Adol or Pedi 1998 Completed Unive rsity of Dosage 00:00:00 [facility] Hep B, Adol or Pedi 1998 Completed Unive rsity of Dosage 00:00:00 [facility] Hep B, Adol or Pedi 1998 Completed Unive rsity of Dosage 00:00:00 [facility] Hep B, Adol or Pedi 1998 Completed Unive rsity of Dosage 00:00:00 [facility] Hep B, Adol or Pedi 1998 Completed Unive rsity of Dosage 00:00:00 [facility] Hep B, Adol or Pedi 1998 Completed Unive rsity of Dosage 00:00:00 [facility] Hep B, Adol or Pedi 1998 Completed Unive rsity of Dosage 00:00:00 [facility] Hep B, Adol or Pedi 1998 Completed Unive rsity of Dosage 00:00:00 [facility] Hep B, Adol or Pedi 1998 Completed Unive rsity of Dosage 00:00:00 [facility] Hep B, Adol or Pedi 1998 Completed Unive rsity of Dosage 00:00:00 [facility] Hep B, Adol or Pedi 1998 Completed Unive rsity of Dosage 00:00:00 [facility] Hep B, Adol or Pedi 1998 Completed Unive rsity of Dosage 00:00:00 [facility] Hep B, Adol or Pedi 1998 Completed Unive rsity of Dosage 00:00:00 [facility] Hep B, Adol or Pedi 1998 Completed Unive rsity of Dosage 00:00:00 [facility] Hep B, Adol or Pedi 1998 Completed Unive rsity of Dosage 00:00:00 [facility] Hep B, Adol or Pedi 1998 Completed Unive rsity of Dosage 00:00:00 [facility] Hep B, Adol or Pedi 1998 Completed Unive rsity of Dosage 00:00:00 [facility] Hep B, Adol or Pedi 1998 Completed Unive rsity of Dosage 00:00:00 [facility] Hep B, Adol or Pedi 1998 Completed Unive rsity of Dosage 00:00:00 [facility] Vital Signs Vital Name Observation Time Observation Value Comments Source Systolic blood 2022-03-25 18:55:00 125 mm[Hg] Univer sity of pressure [facility] Diastolic blood 2022-03-25 18:55:00 90 mm[Hg] Unive rsity of pressure [facility] Heart rate 2022-03-25 18:55:00 74 /min [facility] Body temperature 2022-03-25 18:55:00 37.11 Delfina [facility] rate 2022-03-25 18:55:00 18 /min [facility] Body height 2022-03-25 18:55:00 157.5 cm [facility] Body weight 2022-03-25 18:55:00 88.179 kg [facility] BMI 2022-03-25 18:55:00 35.56 kg/m2 [facility] Oxygen saturation in 2022-03-25 18:55:00 98 /min [facility] blood by [facility] Pulse oximetry Branch Systolic blood 2022-02-26 19:18:00 134 mm[Hg] Univer sity of pressure [facility] Diastolic blood 2022-02-26 19:18:00 87 mm[Hg] Unive rsity of pressure [facility] Heart rate 2022-02-26 19:18:00 82 /min Universi ty of [facility] Body temperature 2022-02-26 19:18:00 37.11 Delfina Univ ersity of [facility] Respiratory rate 2022-02-26 19:18:00 16 /min Univ ersity of [facility] Body height 2022-02-26 19:18:00 160 cm Universi ty [facility] Body weight 2022-02-26 19:18:00 90.266 kg Universi ty of [facility] BMI 2022-02-26 19:18:00 35.25 kg/m2 Universi ty of [facility] Oxygen saturation in 2022-02-26 19:18:00 98 /min University of Arterial blood by [facility] Pulse oximetry Branch Systolic blood 2022-02-22 22:48:00 134 mm[Hg] Univer sity of pressure [facility] Diastolic blood 2022-02-22 22:48:00 84 mm[Hg] Unive rsity of pressure [facility] Heart rate 2022-02-22 22:48:00 88 /min Universi ty [facility] Body temperature 2022-02-22 22:48:00 37.22 Delfina Univ ersity of [facility] Respiratory rate 2022-02-22 22:48:00 16 /min Univ ersity of [facility] Body height 2022-02-22 22:48:00 160 cm [facility]i ty [facility] Body weight 2022-02-22 22:48:00 90.311 kg [facility] BMI 2022-02-22 22:48:00 35.27 kg/m2 [facility] Oxygen saturation in 2022-02-22 22:48:00 98 /min University of Arterial blood by [facility] Pulse oximetry Branch Systolic blood 2022-01-13 19:07:00 129 mm[Hg] Univer sity of pressure [facility] Diastolic blood 2022-01-13 19:07:00 89 mm[Hg] Unive rsity of pressure [facility] Heart rate 2022-01-13 19:07:00 80 /min Universi ty [facility] Body temperature 2022-01-13 19:07:00 36.83 Delfina [facility] Respiratory rate 2022-01-13 19:07:00 18 /min [facility] Body height 2022-01-13 19:07:00 157.5 cm Universi ty [facility] Body weight 2022-01-13 19:07:00 88.996 kg Universi ty [facility] BMI 2022-01-13 19:07:00 35.89 kg/m2 Universi ty [facility] Systolic blood 2021-10-28 15:36:00 121 mm[Hg] Univer sity of [facility] Diastolic blood 2021-10-28 15:36:00 81 [facility]Hg[facility] 2021-10-28 15:35:00 73 /min [facility] Body temperature 2021-10-28 15:35:00 37.22 Delfina [facility] Body weight 2021-10-28 15:35:00 86.183 kg [facility] BMI 2021-10-28 15:35:00 34.74 kg/m2 [facility] Procedures Procedure Date / Time Performing Clinician Source Performed POCT TEST 2022-03-25 20:00:00 Mara Cuevas [facility] URINE CULTURE 2022-03-25 19:22:[facility] CHLAMYDIA[facility] & M. 2022-03-25 19:22:00 Mara Cuevas [facility] GENITALIUM AMPLIFIED [facility] ASSAY GALV ONLY - VAGINAL 2022-03-25 19:22:00 Mara Cuevas [facility] PATHOGENS BY NUCLEIC [facility] ACID TESTING POCT URINALYSIS 2022-03-25 19:02:00 [facility] GC & CHLAMYDIA AMPLIFIED 2022-02-22 23:07:00 [facility] - VAGINAL 2022-02-22 23:07:00 [facility] BY NUCLEIC [facility] ACID TESTING POCT URINALYSIS 2022-02-22 22:54:00 [facility] URINE CULTURE 2022-02-22 22:49:00 [facility] AUTHORIZATION FOR 2022-01-19 05:01:00 [facility] AUTHORIZATION FOR 2021-12-22 05:01:00 [facility]assigned, [facility] Name [facility] AUTHORIZATION FOR 2021-12-14 05:01:00 Doctor Unassigned, [facility] Name [facility] Plan of Care Planned Activity Planned Date Details Comments Source Encounters Start End Encounter Admission Attending Care Care Encounter Source Date/Time Date/Time Type Type Clinicians Facility Department ID 2022-03-28 2022-03-28 Patient Faith [facility] 1.2.840.114 [id number] Univers 00:00:00 00:00:00 Secure Msg [place] 350.1.13.10 ity of [place] 4.2.7.2.686 Golden as VLADIMIR?BLEA [phone] [facility] [address] MEDICAL OFFICE BUILDING 2022-03-25 2022-03-25 Urology Teacher Lab, Ang - Db [facility] 1.2.840.1 [id number] Univers 13:30:00 13:45:00 [facility] 350.1.13.10 ity of [place] 4.2.7.2.686 [place] as VLADIMIR?BLEA [phone] [facility] [address] MEDICAL OFFICE BUILDING 2022-03-25 2022-03-25 Outpatient R FAITH [facility] [id number] Univers 12:40:00 13:23:47 MARA itolivier [facility] 2022-03-25 2022-03-25 Urgent Faith Antonioyamilex [facility] 1.2.840.114 [id number] Univers 12:40:00 13:23:47 Care Unknown, [facility] HEALTH 350.1.13.10 ity of [place] 4.2.7.2.686 [place] as VLADIMIR?BLEA [phone] [address] MEDICAL OFFICE [facility] 2022-03-25 2022-03-25 Patient Faith [facility] 1.2.840.114 [id number] Univers 00:00:00 00:00:00 Secure [facility] 350.1.13.10 [facility] 4.2.7.2.686 [place] VLADIMIR?BLEA [id number] [address] MEDICAL OFFICE [facility] 2022-03-24 2022-03-24 Outpatient R UNKNOWN, [facility] [id number] Univers 17:20:00 17:20:00 ATTENDING ity of [facility] 2022-02-26 2022-02-26 Outpatient R JEEVAN, [facility] [id number] Univers 13:00:00 13:40:20 LORENZA deras [facility] 2022-02-26 2022-02-26 Urgent Lorenza Jaramillo [facility] 1.2.840 .114 [id number] Univers 13:00:00 13:40:20 Care Unknown, Attending HEALTH 350.1.13.10 ity [facility] 4.2.7.2.686 [place] as VLADIMIR?BLEA [phone] [address] MEDICAL OFFICE [facility] 2022-02-22 2022-02-22 Outpatient R ROSEMARY [facility] [id number] Univers 16:40:00 17:15:39 ROSA deras [facility] 2022-02-22 2022-02-22 Urgent Rosa Riley [facility] 1.2.840. 114 [id number] Univers 16:40:00 17:15:39 Care Unknown, Attending HEALTH 350.1.13.10 ity of [facility] 4.2.7.2.686 [place] as VLADIMIR?BLEA [phone] [address] MEDICAL OFFICE [facility] 2022-01-19 2022-01-19 Orders Doctor POLLOCK 1.2.840.114 [id number] Univers 00:00:00 00:00:00 Only Unassigned, PAIGE 350.1.13.10 ity of [place] 4.2.7.2.686 [place] as [id number] [address] 2022-01-13 2022-01-13 Urology Teacher 2, Adc Lab [facility] 1.2.840.114 [id number] Univers 15:00:00 15:15:00 Visit Henrietta Santos 350.1.13.10 [place] [phone] In dical NAL [address] [facility] 2022-01-13 2022-01-13 Office Henrietta Santos [facility] 1.2.616.962 [id number] Univers 14:30:00 14:30:00 Visit Edis GUTIÉRREZ 350.1.13.10 i [place] [id number] In dical NAL 134 [facility] 2022-01-13 2022-01-13 Outpatient R HENRIETTA SANTOS [facility] [id number] Univers 14:30:00 14:19:51 ity [facility] 2022-01-05 2022-01-05 Outpatient R TAD [facility] [id number] Univers 09:10:00 09:10:00 LOKESH ity [facility] 2021-12-28 2021-12-28 Outpatient R ELENA [facility] [id number] Univers 15:00:00 15:00:00 LINDAMELISSANDA ity o [facility] 2021-12-28 2021-12-28 Outpatient R ELENA [facility] [id number] Univers 15:00:00 15:00:00 ROSHUNDA ity o f [facility] 2021-12-28 2021-12-28 Outpatient Davion PARKER [facility] [id number] Univers 15:00:00 15:00:00 ROSHUNDA ity o [facility] 2021-12-28 2021-12-28 Outpatient R ELENA [facility] [id number] Univers 15:00:00 15:00:00 ROSNDA ity o [facility] 2021-12-22 2021-12-22 Orders Doctor POLLOCK 1.2.840.114 [id number] Univers 00:00:00 00:00:00 Only Unassigned, PAIGE 350.1.13.10 ity of [place] [facility] 4.2.7.2.686 [place] as [id number] [facility] [address] 2021-12-14 2021-12-14 Orders Doctor PHILL 1.2.840.114 [id number] Univers 00:00:00 00:00:00 Only Unassigned, PAIGE 350.1.13.10 ity of [place] [facility] 4.2.7.2.686 [place] as [phone] [facility] [address] 2021-12-11 2021-12-11 Terell Mishra [facility] 1.2.604.256 [id number] Univers 00:00:00 00:00:00 Lokesh ESCOBAR 350.1.13.10 [place] AT [id number] In gilberto VICTORY 198 [facility] 2021-10-28 2021-10-28 Office Henrietta Santos [facility] 1.2.299.717 [id number] Univers 10:00:00 11:33:53 Visit Edis GUTIÉRREZ 350.1.13.10 i ty of [place]2.[place] [id number] In gilberto NAL [address] [facility] 2021-10-28 2021-10-28 Outpatient HENRIETTA LINDER [facility] [id number] Univers 10:00:00 11:33:53 ity [facility] 2021-10-28 2021-10-28 Outpatient R HENRIETTA SANTOS [facility] [id number] Univers 10:00:00 10:00:00 ity [facility] 2021-10-21 2021-10-21 Outpatient R HENRIETTA SANTOS [facility] [id number] Univers 15:30:00 15:30:00 itolivier [facility] 2021-10-12 2021-10-12 Outpatient Davion MISHRA [facility] [id number] Univers 13:50:00 13:50:00 LOKESH mata [facility] 2021-10-09 2021-10-09 Imm/Inj Vaccine, Adc Family Medicine [facility] 1.2.840.114 [id number] Univers 15:00:00 15:04:02 Visit Moe Yo 350.1.13 .10 it[place] of [place] [id number] In dical NAL 0[address] [facility] 2021-10-09 2021-10-09 Outpatient R FRANK [facility] [id number] Univers 15:00:00 15:00:00 MOE olivier [facility] 2021-10-09 2021-10-09 Outpatient R FRANK [facility] [id number] Univers 15:00:00 15:00:00 MOE olivier [facility] 2021-10-08 2021-10-08 Office [facility] 1..462.036 [id number] Univers 16:00:00 16:57:27 Visit Edis GUTIÉRREZ 350.1.13.10 i ty of [place] [id number] In dical NAL [address] [place] [address] 2021-10-08 2021-10-08 Outpatient R [facility] [id number] Univers 16:00:00 16:57:27 ity [facility] 2021-10-08 2021-10-08 Outpatient R [facility] [id number] Univers 08:15:00 08:15:00 ity [facility] 2021-10-08 2021-10-08 Patient Laura [facility] .2.840.114 [id number] Univers 00:00:00 00:00:00 Secure Msg Rachel MARLA 350.1.13.10 [place] [id number] In dical NAL [address] [place] [address] 2021-10-07 2021-10-07 Outpatient R TOM HENRIETTA [facility] [id number] Univers 10:30:00 11:44:37 ity [facility] 2021-10-07 2021-10-07 Office [facility] 1.2.647.997 [id number] Univers 10:30:00 11:44:37 Visit Cam [place] 350.1.13.10 i ty of [place] 4.2.7.2.[place] [id number] In dical NAL [address] [place] [address] 2021-10-07 2021-10-07 Telephone Henrietta Santos [facility] 1.2.840.114 [id number] Univers 00:00:00 00:00:00 Cam [place] 350.1.13.10 i ty of [place] 4[place]2.7.[place] [id number] In dical NAL [address] [facility] 2021-10-07 2021-10-07 Patient Luara [facility] 1.2.840.114 [id number] Univers 00:00:00 00:00:00 Secure Msg Rachel [place] 350.1.13.10 ity of [place]2.7.2.[place] [id number] [address] 2021-10-06 2021-10-06 Outpatient R TOM HENRIETTAFORMERLY [facility] [place] [id number] Univers 06:17:00 10:43:00 ity of [facility] 2021-10-06 2021-10-06 Hospital SantosHenrietta [facility] 1.2.840.114 [id number] Univers 06:17:00 10:43:00 Encounter Cam [place] 350.1.13.10 ity of [place].2.[place] SURGICAL [id number] [facility] [address] 2021-10-06 2021-10-06 Outpatient R TOM HENRIETTA [facility] [place] [id number] Univers 06:17:00 10:43:00 ity of [facility] 2021-10-06 2021-10-06 Surgery [facility] 1.2.703.637 [id number] Univers 07:50:00 09:26:00 Cam [place] 350.1.13.10 i ty of [place] 4.2.7.2.[place] SURGICAL [id number] [facility] [address] 2021-10-06 2021-10-06 Anesthesia Yvon Garcia [facility] 1.2.840.11 [id number] Univers 07:53:00 09:11:00 Event Phill Louie 350.1.13.10 [place] SURGICAL [id number] [facility] [address] 2021-10-05 2021-10-05 Urology Teacher Hailey, Adc Lab [place] 1.2.8 40.114 [id number] Univers 14:00:00 14:15:00 Visit Henrietta Santos ALVINAALEX 350.1.13.10 it[place] [id number] [facility] [address] [facility] 2021-10-05 2021-10-05 Urology Teacher 1, Adc Lab [facility] 1.2.840.114 [id number] Univers 13:00:00 13:15:00 Visit Henrietta Santos ALVINAALEX 350.1.13.10 [place]2.[place] [id number] [facility] [address] 2021-10-05 2021-10-05 Outpatient R HENRIETTA SANTOS [facility] [id number] Univers 13:00:00 13:00:00 ity [facility] 2021-10-05 2021-10-05 Orders Doctor PHILL 1.2.840.114 [id number] Univers 00:00:00 00:00:00 Only Unassigned, PAIGE 350.1.13.10 ity of [place] [facility] 4.2.7.2.686 [place] as [id number] [facility] [address] 2021-10-01 2021-10-01 [facility] [id number] Univers 15:15:00 15:15:00 BHARGAV ity [facility] 2021-09-23 2021-09-23 Outpatient R [facility] [id number] Univers 14:00:00 14:00:00 ity [facility] 2021-09-23 2021-09-23 Outpatient R [facility] [id number] Univers 14:00:00 14:00:00 ity [facility] 2021-09-18 2021-09-18 Outpatient R CORNELL [facility] [id number] Univers 08:00:00 08:00:00 BHARGAV mata [facility] 2021-09-15 2021-09-15 Outpatient R TOM HENRIETTA [facility] [id number] Univers 14:15:00 15:09:42 ity [facility] 2021-09-15 2021-09-15 Office [facility] 1.2.697.839 [id number] Univers 14:15:00 15:09:42 Visit Edis GUTIÉRREZ 350.1.13.10 i [place] [id number] In dical NAL [address] [facility] 2021-09-15 2021-09-15 Outpatient R TOM HENRIETTA [facility] [id number] Univers 14:15:00 14:15:00 ity [facility] 2021-09-02 2021-09-02 Imm/Inj Vaccine, [facility] Family Medicine [facility] 1.2.840.114 [id number] Univers 14:00:00 14:11:11 Visit Moe Yo 350.1.13 .10 [place] [id number] In dical NAL 0[address] [facility] 2021-09-02 2021-09-02 Outpatient Davion YO [facility] [id number] Univers 14:00:00 14:00:00 MOE celineolivier [facility] 2021-08-27 2021-08-27 Outpatient R CORNELL [facility] [id number] Univers 15:15:00 15:15:00 BHARGAV itolivier [facility] 2021-08-26 2021-08-26 Case Santos [facility] [id number] Univers 00:00:00 00:00:00 Management Edis GUTIÉRREZ 350.1.13.10 [place] [id number] In dical NAL 134 [facility] 2021-08-24 2021-08-24 Outpatient R HENRIETTA SANTOS [facility] [id number] Univers 10:00:00 11:05:48 ity of [facility] 2021-08-24 2021-08-24 Initial Henrietta Santos [facility] 1.2.904.525 [id number] Univers 10:00:00 11:05:48 Cam MARLA 350.1.13.10 ity of [place] [facility] [id number] In dical NAL [address] [facility] 2021-08-24 2021-08-24 Orders Doctor PHILL 1.2.840.114 [id number] Univers 00:00:00 00:00:00 Only Unassigned, PAIGE 350.1.13.10 ity of [place] [facility] 4.2.7.2.686 [place] as [id number] [address] 2021-08-10 2021-08-10 Outpatient R [facility] [id number] Univers 13:06:58 23:59:00 LOKESH mata [facility] 2021-08-10 2021-08-10 Outpatient R [facility] [id number] Univers 13:06:58 23:59:00 LOKESH olivier [facility] 2021-08-10 2021-08-10 [facility] 1.2.840.114 [id number] Univers 13:06:58 23:59:00 Encounter Lokesh Loera SPECIALTY 350.1.13.10 [place] AT [id number] In gilberto JANE 809 [facility] 2021-08-10 2021-08-10 Office [facility] 1.2.840.114 [id number] Univers 13:50:00 13:50:00 Visit Lokesh M SPECIALTY 350.1.13.10 it[place] AT [id number] In dicdaniel JANE 198 [facility] 2021-08-06 2021-08-06 Telephone [facility] 1.2.840.114 [id number] Univers 00:00:00 00:00:00 Jocelyn Gray 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 350.1.13.10 ity of REGIONAL 4.2.7.2.686 [place] as MATERNAL [phone] [facility] ical & CHILD 107 [facility] 2021-07-31 2021-07-31 Outpatient Davion HOOK [facility] [id number] Univers 13:15:00 13:33:04 HETAL mata [facility] 2021-07-31 2021-07-31 Nurse Pea-Rmchp Nurse Vst, Fp Nrpt [facility] 1.2.840.114 [id number] Univers 13:15:00 13:33:04 Visit BenignoHetal Amairani 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 350.1.13.10 ity [facility] 4.2.7.2.686 Golden as MATERNAL [phone] [facility] CH[facility] [address] [place] [address] 2021-07-31 2021-07-31 Outpatient Davion HOOK [facility] [id number] Univers 13:15:00 13:15:[address] [facility] 2021-07-30 2021-07-30 Outpatient Davion INFANTE [facility] [id number] Univers 16:20:00 16:20:00 [facility] 2021-07-30 2021-07-30 Office [facility] 1.2.793.827 [id number] Univers 16:20:00 16:20:00 Visit Phill PRIMARY 350.1.13.10 it y of [place].2.[place] [phone] In dical [address] 2021-07-30 2021-07-30 Office [facility] 1.2.877.932 [id number] Univers 16:20:00 16:20:00 Visit Phill PRIMARY 350.1.13.10 it y of [place] 4.2.7.2.[place] [phone] In dicmd [address] 2021-07-30 2021-07-30 Outpatient Davion INFANTE [facility] [id number] Univers 16:20:00 16:07:54 [facility] 2021-07-24 2021-07-24 Outpatient Davion RILEY [facility] [id number] Univers 17:20:00 17:20:00 ROSA mata o braeden [facility] 2021-07-16 2021-07-16 Outpatient Davion INFANTE [facility] [id number] Univers 15:00:00 15:00:00 PHILL mata [facility] 2021-05-26 2021-05-26 Outpatient Davion YO [facility] [id number] Univers 09:20:00 09:20:00 MOE mata [facility] 2021-05-26 2021-05-26 Outpatient Davion YO [facility] [id number] Univers 09:20:00 09:20:00 MOE mata [facility] 2021-05-25 2021-05-25 Outpatient Davion PARKER [facility] [id number] Univers 15:00:00 15:46:14 AMANDA mata o braeden [facility] 2021-05-25 2021-05-25 Office Elena [facility] 1.2.840.114 [id number] Univers 15:00:00 15:46:14 Visit Amanda Ricardo 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 350.1.13.10 ity of REGIONAL 4.2.7.2.686 [place] as MATERNAL [id number] [facility] ical & CHILD [address] [place] [address] 2021-05-25 2021-05-25 Outpatient Davion PARKER [facility] [id number] Univers 15:00:00 15:00:00 LINDAVINOD mata o braeden [facility] 2021-05-25 2021-05-25 Orders Doctor PHILL 1.2.840.114 [id number] Univers 00:00:00 00:00:00 Only Unassigned, PAIGE 350.1.13.10 ity of [place] [facility] 4.2.7.2.686 Golden as [phone] [address] 2021-05-19 2021-05-19 Office Josey Koch [facility] 1.2.840.114 [id number] Univers 16:45:00 17:00:00 Visit [facility] 350.1.13.10 it y of [place].2.686 [place] [phone] [address] OFFICE BUILDING 2021-05-19 2021-05-19 Outpatient JOSEY AWAD [facility] [id number] Univers 16:45:00 16:45:00 ity of [facility] 2021-05-05 2021-05-05 Telephone [facility] 1.2.694.966 [id number] Univers 00:00:00 00:00:00 Amanda R 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 350.1.13.10 ity of REGIONAL 4.2.7.2.686 [place] as MATERNAL [id number] [facility] ical & CHILD [address] [place] [address] 2021-05-05 2021-05-05 Telephone [facility] 1.2.323.059 [id number] Univers 00:00:00 00:00:00 Amanda R 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 350.1.13.10 ity of REGIONAL 4.2.7.2.686 [place] as MATERNAL [id number] [facility] [address] 2021-04-30 2021-04-30 Outpatient R ELENA [facility] [id number] Univers 15:30:00 16:02:20 LINDAJOESPH ity o f [facility] 2021-04-30 2021-04-30 Office [facility] 1.2.840.114 [id number] Univers 15:30:00 16:02:20 Visit Lindavinod Ricardo 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 350.1.13.10 ity of REGIONAL 4.2.7.2.686 [place] as MATERNAL [id number] [facility] & CHILD [address] [place] [address] 2021-04-28 2021-04-28 Outpatient JOSEY AWAD [facility] [id number] Univers 15:45:00 15:45:00 ity of [facility] 2021-04-04 2021-04-04 Outpatient R ARELIS [facility] [id number] Univers 08:43:04 23:59:00 PHILL itolivier of [facility] 2021-04-04 2021-04-04 [facility] 1.2.840.114 [id number] Univers 08:43:04 23:59:00 Encounter Phill SHAWN 350.1.13.10 ity of [facility] 4.2.7.2.[place] C[place] AT [id number] In gilberto JANE 804 [facility] 2021-04-04 2021-04-[address] [facility] 1.2.840.114 [id number] Univers 08:42:06 08:42:06 Encounter Phill SPECIALTY 350.1.13.10 ity of C[place] 4.2.7.2.686 [place] AT [phone] In gilberto JANE 803 [facility] 2021-03-20 2021-03-20 Telephone [facility] 1.2.840.114 [id number] Univers 00:00:00 00:00:00 Phill PRIMARY 350.1.13.10 it y of C[place] 4.2.7.2.686 [place] [phone] [facility] [address] 2021-03-05 2021-03-05 [facility] [id number] Univers 15:40:00 15:40:[address] [facility] 2021-02-26 2021-02-26 Outpatient [facility] [id number] Univers 15:30:00 15:30:[address] [facility] 2021-02-19 2021-02-19 Outpatient Dav[facility] [id number] Univers 15:50:00 15:50:[address] [facility] 2021-01-20 2021-01-20 Outpatient Davion HOOK [facility] [id number] Univers 13:15:00 13:15:00 HETAL mata [facility] 2021-01-12 2021-01-12 Outpatient R CHRISTINA [facility] [id number] Univers 09:15:00 09:15:00 JOCELYN deras [facility] 2021-01-08 2021-01-08 Telephone [facility] 1.2.840.114 [id number] Univers 00:00:00 00:00:00 Jocelyn Gray 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 350.1.13.10 ity of REGIONAL 4.2.7.2.686 [place] as MATERNAL [phone] [facility] ical & CHILD [address] [place] [address] 2021-01-07 2021-01-07 Telephone [facility] 1.2.840.114 [id number] Univers 00:00:00 00:00:00 Jocelyn C 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 350.1.13.10 ity of REGIONAL 4.2.7.2.686 [place] as MATERNAL [phone] [address] 2021-01-05 2021-01-05 Office [facility] 1.2.208.032 [id number] Univers 13:58:32 14:20:28 Visit Jocelyn C 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 350.1.13.10 ity of REGIONAL 4.2.7.2.686 [place] as MATERNAL [phone] [address] 2021-01-05 2021-01-05 Outpatient R AKINSIPE, [facility] [id number] Univers 13:45:00 13:45:00 JOCELYN bergery o [facility] 2021-01-05 2021-01-05 Outpatient R AKINSIPE, [facility] [id number] Univers 11:00:00 11:00:00 JOCELYN bergery o [facility] 2020-12-29 2020-12-29 Office [facility] 1.2.075.272 [id number] Univers 08:45:08 09:15:08 Visit Jocelyn C 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 350.1.13.10 ity of REGIONAL 4.2.7.2.686 [place] as MATERNAL [id number] [address] 2020-12-29 2020-12-29 Office [facility] 1.2.432.008 [id number] Univers 08:45:08 09:15:08 Visit Jocelyn C 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 350.1.13.10 ity of REGIONAL 4.2.7.2.686 [place] as MATERNAL [id number] [facility] & [address] 2020-12-29 2020-12-29 Outpatient R AKINSIPE, [facility] [id number] Univers 08:45:00 08:45:00 JOCELYN ity o [facility] 2020-12-29 2020-12-29 Orders Doctor PHILL 1.2.840.114 [id number] Univers 00:00:00 00:00:00 Only Unassigned, PAIGE 350.1.13.10 ity of [place] [facility] 4.2.7.2.686 Golden as [phone] [address] 2020-12-29 2020-12-29 Orders Doctor PHILL 1.2.840.114 [id number] Univers 00:00:00 00:00:00 Only Unassigned, PAIGE 350.1.13.10 ity of [place] [facility] 4.2.7.2.686 Golden as [id number] [address] 2020-12-19 2020-12-19 Office [facility] 1.2.380.871 [id number] Univers 15:55:19 16:24:05 Visit Jocelyn Gray 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 350.1.13.10 ity of [facility] 4.2.7.2.686 Golden as MATERNAL [phone] [facility] ical & CHILD [address] [place] [address] 2020-12-19 2020-12-19 Office [facility] 1.2.782.620 [id number] Univers 15:55:19 16:24:05 Visit Jocelyn Gray 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 350.1.13.10 ity of [facility] 4.2.7.2.686 Golden as MATERNAL [phone] [facility] & [address] 2020-12-19 2020-12-19 Outpatient R CHRISTINA [facility] [id number] Univers 16:00:00 16:00:00 JOCELYN bergery o f [facility] 2020-12-09 2020-12-09 Outpatient R [facility] [id number] Univers 13:00:00 13:00:00 ity of [facility] 2020-11-25 2020-11-25 Office Elena [facility] 1.2.840.114 [id number] Univers 11:48:14 12:04:05 Visit Amanda Ricardo 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 350.1.13.10 ity of [facility] 4.2.7.2.686 Golden as MATERNAL [id number] [facility] & CHILD [address] [place] [address] 2020-11-25 2020-11-25 Office Elena [facility] 1.2.840.114 [id number] 11:48:14 12:04:05 Visit Amanda Ricardo 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 350.1.13.10 [facility] 4.2.7.2.686 MATERNAL [phone] & CHILD [address] [place] [address] 2020-11-25 2020-11-25 Out[facility] [id number] Univers 12:00:00 12:00:00 AMANDA mata o [facility] 2020-11-12 2020-11-12 Outpatient [facility] [id number] Univers 09:30:00 09:30:00 JOCELYN snyder [facility] 2020-11-07 2020-11-07 Outpatient R [facility] [id number] Univers 08:45:00 08:45:00 BHARGAV [facility]Sur[facility] 2020-10-22 2020-10-22 Telephone [facility] 1.2.840.114 [id number] Univers 00:00:00 00:00:00 Jocelyn Gray 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 350.1.13.10 [facility] 4.2.7.2.686 [place] as MATERNAL [phone] [facility] & CHILD [address] [place] [address] 2020-10-15 2020-10-15 Urgent Provider, [facility] 1.2.840.114 [id number] Univers 12:52:51 13:29:22 Care Evi Myers [facility] 350.1.13.10 [facility] 4.2.7.2.686 Golden as Professio [phone] [address] Office Building One 2020-10-15 2020-10-15 Outpatient R LOUIS [facility] [id number] Univers 13:00:00 13:00:00 EVI mata [facility] 2020-10-13 2020-10-13 Outpatient [facility] [id number] Univers 14:15:00 14:15:00 JOCELYN ity o f [facility] 2020-10-08 2020-10-08 Outpatient P [facility] [id number] Univers 13:00:00 13:00:00 ity [facility] 2020-10-06 2020-10-06 Outpatient R [facility] [id number] Univers 11:00:00 11:00:00 ity [facility] 2020-10-02 2020-10-02 Telephone Christina [facility] 1.2.840.114 [id number] Univers 00:00:00 00:00:00 Jocelyn Gray 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 350.1.13.10 ity of REGIONAL 4.2.7.2.686 [place] as MATERNAL [id number] [facility] & [address] 2020-10-01 2020-10-01 Urology Teacher Lab, [facility] 1.2.840. 114 [id number] Univers 10:23:48 10:38:48 Visit Jocelyn Vasquez 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 350.1.13. 10 ity of REGIONAL 4.2.7.2.686 [place] as MATERNAL [id number] [facility] & [address] 2020-10-01 2020-10-01 Outpatient R [facility] [id number] Univers 10:30:00 10:30:00 ity [facility] 2020-09-30 2020-09-30 Office Josey Koch [facility] 1.2.840.114 [id number] Univers 13:53:34 14:08:34 Visit Health 350.1.13.10 it y of [place].2.[place] [phone] [address] Office Building 2020-09-30 2020-09-30 Outpatient R JOSEY KOCH [facility] [id number] Univers 14:00:00 14:00:00 ity [facility] 2020-09-29 2020-09-29 Office Christina [facility] 1.2.766.950 [id number] Univers 12:48:08 13:43:12 Visit Jocelyn Gray 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 350.1.13.10 ity of REGIONAL 4.2.7.2.686 [place] as MATERNAL [phone] [facility] [address] [place] [address] 2020-09-29 2020-09-29 Outpatient R CHRISTINA [facility] [id number] Univers 12:45:00 12:45:00 JOCELYN ity o f [facility] 2020-09-23 2020-09-23 Outpatient [facility] [id number] Univers 09:00:00 09:00:00 JOCELYN ity o f [facility] 2020-09-13 2020-09-13 Nurse China Fine 1.2.840.114 [id number] Univers 00:00:00 00:00:00 Triage PAIGE 350.1.13.10 it y of [facility] 4.2.7.2.686 Golden as [phone] [address] 2020-09-12 2020-09-12 Telephone Josey Koch [facility] 1.2.840.114 [id number] Univers 00:00:00 00:00:00 Health 350.1.13.10 it y of [place] 4.2.7.2.686 [place] [facility] [phone] [address] Office Building 2020-09-03 2020-09-03 Outpatient R [facility] [id number] Univers 08:15:00 08:15:00 ity of [facility] 2020-09-01 2020-09-01 Outpatient [facility] [id number] Univers 07:45:00 07:45:00 JOCELYN ity o f [facility] 2020-08-28 2020-08-28 Telephone [facility] 1.2.840.114 [id number] Univers 00:00:00 00:00:00 Jocelyn Gray 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 350.1.13.10 ity of [facility] 4.2.7.2.686 Golden as MATERNAL [id number] [facility] [address] [place] [address] 2020-08-27 2020-08-27 Telephone [facility] 1.2.840.114 [id number] Univers 00:00:00 00:00:00 Jocelyn Gray 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 350.1.13.10 ity of [facility] 4.2.7.2.686 Golden as MATERNAL [phone] [facility] & [address] 2020-08-26 2020-08-26 Initial [facility] 1.2.820.226 [id number] Univers 14:28:27 15:44:22 Jocelyn C 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 350.1.13.10 ity of Visit [facility] 4.2.7.2.686 [place] as MATERNAL [id number] [address] 2020-08-26 2020-08-26 Outpatient [facility] [id number] Univers 14:00:00 14:00:00 JOCELYN mata o [facility] 2020-08-26 2020-08-26 Orders Doctor PHILL 1.2.840.114 [id number] Univers 00:00:00 00:00:00 Only Unassigned, PAIGE 350.1.13.10 ity of [place] [address]686 Golden as [id number] [address] 2020-07-22 2020-07-22 Outpatient R ELENA [facility] [id number] Univers 09:45:00 09:45:00 AMANDA mata o [facility] 2020-07-22 2020-07-22 Outpatient Davion [facility] [id number] Univers 09:45:00 09:45:00 AMANDA mata o [facility] 2020-07-22 2020-07-22 [facility] 1.2.840.114 [id number] Univers 09:25:38 09:43:35 Visit Lindajoesph R 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 350.1.13.10 ity of [address]686 [place] as MATERNAL [phone] [address] 2020-07-08 2020-07-08 [facility] 1.2.840.114 [id number] Univers 14:20:22 14:44:34 Visit Aamnda R 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 350.1.13.10 ity of [facility] 42.7.2.686 [place] as MATERNAL [id number] [facility] ical & CHILD [address] [place] [address] 2020-07-08 2020-07-08 Outpatient R ELENA [facility] [id number] Univers 14:15:00 14:15:00 AMANDA deras [facility] 2020-07-08 2020-07-08 Patient Frank [facility] 1.2.840.114 [id number] Univers 00:00:00 00:00:00 Outreach [facility] 350.1.13.10 i ty of [facility] 4.2.7.2.686 [place] [id number] [address] 2020-06-10 2020-06-10 Outpatient R CHRISTINA [facility] [id number] Univers 09:30:00 09:30:00 JOCELYNDREA snyder [facility] 2020-05-21 2020-05-21 Office [facility] 1.2.840.114 [id number] Univers 12:48:35 13:25:07 Visit Amanda Ricardo 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 350.1.13.10 ity of [facility] 4.2.7.2.686 Golden as MATERNAL [id number] [facility] ical & CHILD [address] [place] [address] 2020-05-21 2020-05-21 Outpatient R ELENA [facility] [id number] Univers 12:45:00 12:45:00 AMANDA deras [facility] 2020-05-21 2020-05-21 Orders Doctor PHILL 1.2.840.114 [id number] Univers 00:00:00 00:00:00 Only Unassigned, PAIGE 350.1.13.10 ity of [place] [facility] 4.2.7.2.686 Golden as [id number] [address] 2020-03-18 2020-03-18 Nurse Visit, [facility] Nurse [facility] 1.2 .840.114 [id number] Univers 10:31:12 10:55:32 Visit Amanda Parker 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 350.1.13.10 ity of [facility] 4.2.7.2.686 Golden as MATERNAL [phone] [facility] [address] [place] [address] 2020-03-18 2020-03-18 Outpatient R [facility] [id number] Univers 10:30:00 10:30:00 ity of [facility] 2020-03-18 2020-03-18 Outpatient R ELENA [facility] [id number] Univers 10:30:00 10:30:00 ROSNDA esperanza o [facility] 2020-03-10 2020-03-10 Telephone [facility] 1.2.840.114 [id number] Univers 00:00:00 00:00:00 Jocelyn Gray 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 350.1.13.10 ity of [facility] 4.2.7.2.686 Golden as MATERNAL [id number] [facility] & CHILD [address] [place] [address] 2020-03-05 2020-03-05 Office [facility] 1.2.265.571 [id number] Univers 15:35:31 16:27:42 Visit Jocelyn Gray 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 350.1.13.10 ity of [facility] 4.2.7.2.686 Golden as MATERNAL [phone] [facility] & CHILD [address] [place] [address] 2020-03-05 2020-03-05 Outpatient [facility] [id number] Univers 15:30:00 15:30:00 JOCELYN mata o [facility] 2020-03-05 2020-03-05 Outpatient [facility] [id number] Univers 15:30:00 15:30:00 JOCELYN mata o [facility] 2020-02-26 2020-02-26 Orders Doctor PHILL 1.2.840.114 [id number] Univers 00:00:00 00:00:00 Only Unassigned, PAIGE 350.1.13.10 ity of [place] [facility] 4.2.7.2.686 Golden as [phone] [address] 2020 2020 Outpatient R ARELIS [facility] [id number] Univers 10:30:00 10:30:00 PHILL ity [facility] 2020-02-08 2020-02-08 Office [facility] 1.2.654.403 [id number] Univers 14:38:38 15:30:42 Visit Jocelyn Gray 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 350.1.13.10 ity of [facility] 4.2.7.2.686 Golden as MATERNAL [id number] [facility] ical & CHILD [address] [place] [address] 2020-02-08 2020-02-08 Outpatient R [facility] [id number] Univers 14:45:00 14:45:00 JOCELYN ity o f [facility] 2020-01-30 2020-01-30 Orders Doctor PHILL 1.2.840.114 [id number] Univers 00:00:00 00:00:00 Only Unassigned, PAIGE 350.1.13.10 ity of [place] [facility] 4.2.7.2.686 Golden as [phone] [address] 2020-01-24 2020-01-24 Outpatient R ARELIS [facility] [id number] Univers 08:40:00 08:40:00 PHILL ity of [facility] 2020-01-23 2020-01-23 Abstract [facility] 1.2.840.114 [id number] Univers 00:00:00 00:00:00 Tony PRIMARY 350.1.13.10 it y of [facility] 4.2.7.2.686 [place] [phone] [address] 2020-01-23 2020-01-23 Telephone [facility] 1.2.486.646 [id number] Univers 00:00:00 00:00:00 Northa R 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 350.1.13.10 ity of [facility] 4.2.7.2.686 Golden as MATERNAL [id number] [facility] & CHILD [address] [place] [address] 2020-01-21 2020-01-21 Office [facility] 1.2.840.114 [id number] Univers 08:32:46 09:29:11 Visit Amanda R 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 350.1.13.10 ity of [facility] 4.2.7.2.686 Golden as MATERNAL [id number] [facility] ical & CHILD [address] [place] [address] 2020-01-21 2020-01-21 Outpatient R ELENA [facility] [id number] Univers 08:30:00 08:30:00 AMANDA snyder braeden [facility] 2019-12-27 2020-01-15 Office [facility] 1.2.430.909 [id number] Univers 14:49:24 22:41:22 Visit Phill PRIMARY 350.1.13.10 it y of C[place] 4.2.7.2.686 [place] [id number] In dical [address] 2019-12-31 2019-12-31 [facility] 1.2.840.114 [id number] Univers 00:00:00 00:00:00 Jocelyn C 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 350.1.13.10 ity of [place] 4.2.7.2.686 [place] as MATERNAL [id number] [facility] ical & CHILD [address] [place] [address] 2019-12-28 2019-12-28 Office [facility] 1.2.237.264 [id number] Univers 15:18:44 15:56:31 Visit Jocelyn C 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 350.1.13.10 ity of [place] 4.2.7.2.686 [place] as MATERNAL [phone] [facility] & [address] 2019-12-28 2019-12-28 Outpatient R [facility] [id number] Univers 15:30:00 15:30:00 JOCELYN deras [facility] 2019-12-27 2019-12-[address] [facility] [id number] Univers 14:56:29 23:59:00 Encounter Phill PRIMARY [id number] ity of C[place] 4[place]7.2.686 [place] [phone] [facility] [address] 2019-12-27 2019-12-27 Outpatient R [facility] [id number] Univers 14:50:00 14:50:00 PHILL ity of [facility] 2019-12-26 2019-12-26 [facility] [id number] Univers 00:00:00 00:00:00 Jim PRIMARY [id number] it y of [facility] [id number] [place] SORIA [phone] [address] 2019-12-25 2019-12-25 Nurse Visit, [facility] Nurse [facility] [id number] .[id number] Univers 13:07:45 13:30:36 Visit Amanda Parker 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 [id number] ity of [facility] [id number] [place] as MATERNAL [phone] Med ical & CHILD [address] [place] [address] 2019-12-25 2019-12-25 Outpatient R ELENA [facility] [id number] Univers 13:00:00 13:00:00 AMANDA bergery o f [facility] 2019-12-10 2019-12-10 Outpatient R JOSEY KOCH [facility] [id number] Univers 09:30:00 09:30:00 ity [facility] 2019-10-02 2019-10-02 Nurse Visit, [facility] Nurse [facility] 1.2 .840.114 [id number] Univers 12:50:26 13:05:26 Visit Amanda Parker 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 [id number] ity of [facility] [id number] [place] as MATERNAL [phone] [facility] & CHILD [address] [place] [address] 2019-10-02 2019-10-02 Outpatient R [facility] [id number] Univers 13:00:00 13:00:00 ity of [facility] 2019-10-01 2019-10-01 Outpatient R [facility] [id number] Univers 13:00:00 13:00:00 ity [facility] 2019-10-01 2019-10-01 [facility]phone [facility] [id number] Univers 00:00:00 00:00:00 Jocelyn Gray 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 [id number] ity of [facility] [id number] [place] as MATERNAL [phone] [facility] ical & CHILD [address] [place] [address] 2019-08-21 2019-08-21 Orders Doctor PHILL [id number] Univers 00:00:00 00:00:00 Only Unassigned, PAIGE 350.1.13.10 ity of [facility] 4.2.7.2.686 [place] as [phone] [address] 2019-07-09 2019-07-09 Nurse Visit, Ang-Rmchp Nurse [facility] 1.2 .840.114 [id number] Univers 13:42:44 13:57:44 Visit Amanda Parker R 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 350.1.13.10 ity of [facility] 4.2.7.2.686 [place] as MATERNAL [phone] [facility] ical & CHILD [address] [place] [address] 2019-07-09 2019-07-09 Outpatient R [facility] [id number] Univers 13:30:00 13:30:00 ity of [facility] 2019-07-05 2019-07-05 Outpatient R ARELIS [facility] [id number] Univers 09:50:00 09:50:00 PHILL ity [facility] 2019-06-11 2019-06-11 Office Josey Koch [facility] 1.2.840.114 [id number] Univers 09:45:09 10:00:09 Visit Health 350.1.13.10 [place] [phone] [address] Office Building 2019-06-11 2019-06-11 Outpatient R JOSEY KOCH [facility] [id number] Univers 10:00:00 10:00:00 ity of [facility] 2019-05-08 2019-05-09 Office Josey Koch [facility] 1.2.840.114 [id number] Univers 13:07:45 11:20:43 Visit Health 350.1.13.10 [place] [phone] [address] Office Building 2019-05-03 2019-05-05 Hospital Josey Koch 1.2.840.114 [id number] Univers 08:27:00 13:50:00 Encounter [place] 350.1.13.10 ity of [facility] 4.2.7.2.686 [place] as [phone] [address] 2019-04-27 2019-04-27 Telephone Josey Koch [facility] 1.2.840.114 [id number] Univers 00:00:00 00:00:00 Health 350.1.13.10 it y of [place]7.2.686 [place] [facility] [phone] [address] 2019-03-26 2019-03-26 [facility] [id number] Univers 10:39:20 23:59:00 NATA esperanza [facility] 2019-03-26 2019-03-26 [facility] [id number] Univers 10:39:20 23:59:00 [facility] 2019-03-23 2019-03-23 Outpatient [facility] [id number] Univers 00:00:00 00:00:00 [facility] 2018-12-25 2019-01-02 [facility] 1.2.840.114 [id number] Univers 08:15:33 13:00:13 Rosmelissanda R 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 350.1.13.10 ity of Visit REGIONAL 4.2.7.2.686 [place] as MATERNAL [id number] [facility] & CHILD [address] [place] [address] 2018-12-25 2018-12-25 Outpatient Davion PARKER [facility] [id number] Univers 08:00:00 09:13:28 ROSHUNDA ity o f [facility] 2018-12-21 2018-12-21 [facility] 1.2.840.114 [id number] Univers 08:15:00 08:30:00 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 R 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 350.1.13.10 ity of Visit REGIONAL 4.2.7.2.686 [place] as MATERNAL [phone] [facility] & CHILD [address] [place] [address] 2018-12-21 2018-12-21 Outpatient [facility] [id number] Univers 08:15:00 08:15:00 ROSHUNDA ity o f [facility] 2018-12-02 2018-12-04 [facility] PHILL [place] 1.2.840.114 [id number] Univers 00:16:00 15:06:00 Encounter Erika GIBSON 350.1.13.10 ity of [facility] 4.2.7.2.686 [place] [phone] [facility] [address] 2018-11-30 2018-11-30 [facility] [id number] Univers 08:54:52 09:13:01 Hetal N 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 350.1.13.10 i ty of Visit REGIONAL 4.2.7.2.686 [place] as MATERNAL [phone] Med ical & CHILD [address] [place] [address] 2018-11-23 2018-11-23 Routine [facility] [id number] [facility] 08:17:01 08:54:22 Jocelyn C 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 350.1.13.10 ity of Visit REGIONAL 4.2.7.2.686 [place] as MATERNAL [phone] [facility] ical & CHILD [address] [place] [address] 2018-11-16 2018-11-20 Office Arelis [facility] 1.2.078.614 [id number] [facility] 10:35:57 11:06:37 Visit Phill VITALE 350.1.13.10 it y of [place] [phone] In dical [address] 2018-11-16 2018-11-16 Routine [facility] [id number] [id number] Univers 15:15:19 15:55:04 Jocelyn C 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 350.1.13.10 ity of Visit REGIONAL 4.2.7.2.686 [place] as MATERNAL [phone] [facility] ical & CHILD [address] [place] [address] 2018-11-14 2018-11-14 Abstract Praveen [facility] 1.2.802.780 [id number] Univers 00:00:00 00:00:00 Peter Phill PRIMARY 350.1.13.10 ity of [place] [phone] In dicmd [address] Results Test Description Test Time Test Comments Results Result Comments Source POCT TEST 2022-03-25 20:03:00 Test Item Value Reference Range Interpretation Comme nts POCT PREG (test code = 1605) Negative On board controls acceptable with C Line Yes (test code = 3574) POCT PREG LOT # (test code = 3575) POCT PREG TEST DATE (test code = 3576) BAN (test code = BAN) accurate development and interpretation of all internal controls Lab Interpretation (test code = 24387-6) Normal [facility] [id number] 20:03:00 Test Item Value Reference Range Interpretation Comments POCT PREG (test code = Negative 1605) On board controls Yes acceptable with C Line (test code = 3574) POCT PREG LOT # (test code = 3575) POCT PREG TEST DATE (test code = 3576) BAN (test code = BAN) accurate development and interpretation of all internal controls Lab Interpretation Normal (test code = 73750-2) [facility] [id number] 20:03:00 Test Item Value Reference Range Interpretation Comments POCT PREG (test code = Negative 1605) On board controls Yes acceptable with C Line (test code = 3574) POCT PREG LOT # (test code = 3575) POCT PREG TEST DATE (test code = 3576) BAN (test code = BAN) accurate development and interpretation of all internal controls Lab Interpretation Normal (test code = 65508-0) [facility] [id number] 20:03:00 Test Item Value Reference Range Interpretation Comments POCT PREG (test code = Negative 1605) On board controls Yes acceptable with C Line (test code = 3574) POCT PREG LOT # (test code = 3575) POCT PREG TEST DATE (test code = 3576) BAN (test code = BAN) accurate development and interpretation of all internal controls Lab Interpretation Normal (test code = 19189-0) [facility] URINALYSIS W SPECIFIC [id number] 19:03:00 Test Item Value Reference Range Interpretation Comments POCT U SP GRAV (test 1.025 mg/dl 1.005-1.025 code = 3255) POCT PH U (test code = 5 mg/dl 5-8 3254) POCT U LEUK EST (test trace Negative - code = 3263) Negative POCT U NIT (test code negative Negative - = 3262) Negative POCT U PROT (test code trace Negative - = 3259) Negative POCT U GLU (test code negative Negative - = 3256) Negative POCT U KETONE (test negative Negative - code = 3258) Negative POCT U UROBILI (test normal 0.2-1 code = 3260) POCT U BILI (test code negative Negative - = 3261) Negative POCT U BLD (test code Negative - = 3257) Negative POCT U COLOR (test dark yellow code = 3266) POCT U APPEAR (test cloudy code = 3267) BAN (test code = BAN) accurate development and interpretation of all internal controls Lab Interpretation Abnormal (test code = 65184-5) [facility] URINALYSIS W SPECIFIC [id number] 19:03:00 Test Item Value Reference Range Interpretation Comments POCT U SP GRAV (test 1.025 mg/dl 1.005-1.025 code = 3255) POCT PH U (test code = 5 mg/dl 5-8 3254) POCT U LEUK EST (test trace Negative - code = 3263) Negative POCT U NIT (test code negative Negative - = 3262) Negative POCT U PROT (test code trace Negative - = 3259) Negative POCT U GLU (test code negative Negative - = 3256) Negative POCT U KETONE (test negative Negative - code = 3258) Negative POCT U UROBILI (test normal 0.2-1 code = 3260) POCT U BILI (test code negative Negative - = 3261) Negative POCT U BLD (test code Negative - = 3257) Negative POCT U COLOR (test dark yellow code = 3266) POCT U APPEAR (test cloudy code = 3267) BAN (test code = BAN) accurate development and interpretation of all internal controls Lab Interpretation Abnormal (test code = 81889-5) [facility] URINALYSIS W SPECIFIC [id number] 19:03:00 Test Item Value Reference Range Interpretation Comments POCT U SP GRAV (test 1.025 mg/dl 1.005-1.025 code = 3255) POCT PH U (test code = 5 mg/dl 5-8 3254) POCT U LEUK EST (test trace Negative - code = 3263) Negative POCT U NIT (test code negative Negative - = 3262) Negative POCT U PROT (test code trace Negative - = 3259) Negative POCT U GLU (test code negative Negative - = 3256) Negative POCT U KETONE (test negative Negative - code = 3258) Negative POCT U UROBILI (test normal 0.2-1 code = 3260) POCT U BILI (test code negative Negative - = 3261) Negative POCT U BLD (test code Negative - = 3257) Negative POCT U COLOR (test dark yellow code = 3266) POCT U APPEAR (test cloudy code = 3267) BAN (test code = BAN) accurate development and interpretation of all internal controls Lab Interpretation Abnormal (test code = 12263-7) [facility] URINALYSIS W SPECIFIC [id number] 19:03:00 Test Item Value Reference Range Interpretation Comments POCT U SP GRAV (test 1.025 mg/dl 1.005-1.025 code = 3255) POCT PH U (test code = 5 mg/dl 5-8 3254) POCT U LEUK EST (test trace Negative - code = 3263) Negative POCT U NIT (test code negative Negative - = 3262) Negative POCT U PROT (test code trace Negative - = 3259) Negative POCT U GLU (test code negative Negative - = 3256) Negative POCT U KETONE (test negative Negative - code = 3258) Negative POCT U UROBILI (test normal 0.2-1 code = 3260) POCT U BILI (test code negative Negative - = 3261) Negative POCT U BLD (test code Negative - = 3257) Negative POCT U COLOR (test dark yellow code = 3266) POCT U APPEAR (test cloudy code = 3267) BAN (test code = BAN) accurate development and interpretation of all internal controls Lab Interpretation Abnormal (test code = 39318-4) [facility] URINALYSIS W SPECIFIC [id number] 22:54:00 Test Item Value Reference Range Interpretation Comments POCT U SP GRAV (test 1.005 mg/dl 1.005-1.025 code = 3255) POCT PH U (test code = 8 mg/dl 5-8 3254) POCT U LEUK EST (test trace Negative - code = 3263) Negative POCT U NIT (test code pos Negative - = 3262) Negative POCT U PROT (test code trace Negative - = 3259) Negative POCT U GLU (test code normal Negative - = 3256) Negative POCT U KETONE (test neg Negative - code = 3258) Negative POCT U UROBILI (test normal 0.2-1 code = 3260) POCT U BILI (test code neg Negative - = 3261) Negative POCT U BLD (test code trace Negative - = 3257) Negative POCT U COLOR (test yellow code = 3266) POCT U APPEAR (test cloudy code = 3267) BAN (test code = BAN) accurate development and interpretation of all internal controls Lab Interpretation Abnormal (test code = 61195-3) [facility] URINALYSIS W SPECIFIC [id number] 22:54:00 Test Item Value Reference Range Interpretation Comments POCT U SP GRAV (test 1.005 mg/dl 1.005-1.025 code = 3255) POCT PH U (test code = 8 mg/dl 5-8 3254) POCT U LEUK EST (test trace Negative - code = 3263) Negative POCT U NIT (test code pos Negative - = 3262) Negative POCT U PROT (test code trace Negative - = 3259) Negative POCT U GLU (test code normal Negative - = 3256) Negative POCT U KETONE (test neg Negative - code = 3258) Negative POCT U UROBILI (test normal 0.2-1 code = 3260) POCT U BILI (test code neg Negative - = 3261) Negative POCT U BLD (test code trace Negative - = 3257) Negative POCT U COLOR (test yellow code = 3266) POCT U APPEAR (test cloudy code = 3267) BAN (test code = BAN) accurate development and interpretation of all internal controls Lab Interpretation Abnormal (test code = 78587-8) [facility] URINALYSIS W SPECIFIC [id number] 22:54:00 Test Item Value Reference Range Interpretation Comments POCT U SP GRAV (test 1.005 mg/dl 1.005-1.025 code = 3255) POCT PH U (test code = 8 mg/dl 5-8 3254) POCT U LEUK EST (test trace Negative - code = 3263) Negative POCT U NIT (test code pos Negative - = 3262) Negative POCT U PROT (test code trace Negative - = 3259) Negative POCT U GLU (test code normal Negative - = 3256) Negative POCT U KETONE (test neg Negative - code = 3258) Negative POCT U UROBILI (test normal 0.2-1 code = 3260) POCT U BILI (test code neg Negative - = 3261) Negative POCT U BLD (test code trace Negative - = 3257) Negative POCT U COLOR (test yellow code = 3266) POCT U APPEAR (test cloudy code = 3267) BAN (test code = BAN) accurate development and interpretation of all internal controls Lab Interpretation Abnormal (test code = 49290-4) [facility]
[2022-03-29 20:21] LABS: Absolute Lymphocytes (CBC) 2.2 K/uL (0.7-4.9); Hematocrit 42.3 % (36.0-45.0); Lymphocytes % 26.5 % (15.3-44.8); MCV 91.3 fL (80-100); RBC Red Blood Cell Count 4.63 M/uL (3.86-4.86)
[2022-03-29 20:37] LABS: Bilirubin Total 0.4 mg/dL (0.2-1.0); Potassium 3.7 mmol/L (3.5-5.1); Protein, Total 7.6 g/dL (6.4-8.2)
[2022-03-29 20:46] LABS: Urine Blood 1+ (Negative); Urine Glucose Negative (Negative); Urine Protein Negative (Negative); Urine Specific Gravity >=1.030 (1.005-1.030)
--- NOTE | 2022-03-29 21:34 | RAD REPORT ---
EXAM DESCRIPTION: CTAbdomen Pelvis W Contrast - 03/29/2022 9:05 pm CLINICAL HISTORY: Abdominal pain, acute, nonlocalized COMPARISON: Abdomen Pelvis W Contrast dated 11/04/2021; Abdomen Pelvis W Contrast dated 05/10/2021 ; Abdomen Pelvis W Contrast dated 04/13/2021; Abdomen Pelvis W Contrast dated 10/04/2020 TECHNIQUE: CT of the abdomen and pelvis was performed with IV contrast. All CT scans are performed using dose optimization technique as appropriate and may include automated exposure control or mA/KV adjustment according to patient size. FINDINGS: Lower chest: No acute abnormality. Liver: No acute abnormality or suspicious lesions. Biliary: No biliary ductal dilatation. Stomach: No significant focal abnormality. Duodenum: No significant focal abnormality. Pancreas: No significant abnormality. Spleen: No significant abnormality. Adrenal: No suspicious lesions. Kidney/ureter: No hydronephrosis. 2 mm stone in lower pole right kidney. Retroperitoneum: No retroperitoneal adenopathy. Vascular: No aneurysm. Bowel: No significant focal abnormality. Normal appendix . Partial bowel resection. Peritoneum: No ascites or free air. Bladder: Grossly unremarkable. Reproductive: No adnexal masses. Bones: No acute fracture. Fusion hardware at T12 through L3. Other: n/a IMPRESSION: No acute intra-abdominal or pelvic finding. Normal appendix.
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
[2022-03-29 22:26] LABS: Urine Specific Gravity/Preg >1.030 (1.005-1.030)
[2022-03-29 23:09] VITALS: BP 145/79; TEMP 98.3; O2SAT 100
== END 2022-03-29 22:33 | disposition home or self-care (01) ==
LOC: ER 19:46
DX: K59.00 Constipation, unspecified (principal)
CPT/HCPCS: 85025; 36415; 81025; 81003; 83690; 80053; 74177; Q9967; 99283

== ENCOUNTER 2022-06-29 22:59 | Inpatient (IN) | payer OTHER ==
--- OUTSIDE RECORDS SUMMARY | 2022-06-29 23:10 | XMS REPORT | Continuity of Care Document ---
:2000 Author Organization [facility] t Address [address] [facility] [address] [facility] [place] [address] Care Team Providers Name Role Phone CHACHA GOMEZ Primary Care Physician Unavailable HENRIETTA SANTOS Attending Clinician Unavailable CHACHA GOMEZ Attending Clinician Unavailable ZULLY HOLT Attending Clinician Unavailable JEANNETTE PATEL Attending Clinician Unavailable JEANNETTE PATEL Attending Clinician Unavailable ELIJAH HERNANDEZ Attending Clinician Unavailable Elijah Hernandez MD Attending Clinician [facility] Attending Clinician Unavailable Unknown, Attending Attending Clinician Unavailable Steffany Zapata MD Attending Clinician UNKNOWN, ATTENDING Attending Clinician Unavailable STEFFANY ZAPATA Attending Clinician Unavailable Doctor Unassigned, [place] Attending Clinician Unavailable Zully Holt PA-C Attending Clinician Josey Koch MD Attending Clinician JOSEY KOCH Attending Clinician Unavailable Henrietta Santos MD Attending Clinician Mara Olivarez Attending Clinician Lab, Dick Sorensen Attending Clinician Unavailable MARA CUEVAS Attending Clinician Unavailable LORENZA CHEW Attending Clinician Unavailable Lorenza Klein Attending Clinician ROSA ERAZO Attending Clinician Unavailable Kacey BIOCHEMIST, Rosa Attending Clinician 2, [facility] Attending Clinician Unavailable LOKESH MISHRA Attending Clinician Unavailable AMANDA PARKER Attending Clinician Unavailable Lokesh Mishra MD Attending Clinician Vaccine, [facility] Attending Clinician Unavailable Moe Marie DO Attending Clinician MOE MARIE Attending Clinician Unavailable Rachel Sanchez RN Attending Clinician Unavailable Yvon Garcia CRNA Attending Clinician Phill Louie MD Attending Clinician Pob, [facility] Attending Clinician Unavailable 1, [facility] Attending Clinician Unavailable BHARGAV SARABIA Attending Clinician Unavailable Christina WHZEINABPJocelyn Attending Clinician [phone] HETAL HOOK Attending Clinician Unavailable Pea-[facility] Nurse Vst, Fp Nrpt Pills Class Attending Clinician Unavailable Hetal Muniz Attending Clinician PHILL INFANTE Attending Clinician Unavailable Arelis JIMENEZ MD, John Attending Clinician Amanda Yates Attending Clinician JOCELYN VASQUEZ Attending Clinician Unavailable Provider, [facility] Attending Clinician Unavailable Evi Greer Attending Clinician EVI RODRIGUEZ Attending Clinician Unavailable Lab, [facility] Attending Clinician Unavailable China Fine RN Attending Clinician Unavailable Visit, [facility] Nurse Attending Clinician Unavailable Tony Lebron MD Attending Clinician Jim Brown MD Attending Clinician NATA DINERO Attending Clinician Unavailable Moises FOSTER, Erika Jade Attending Clinician [phone] Gasper Morton MD Attending Clinician ELIJAH HERNANDEZ Admitting Clinician Unavailable ZULLY HOLT Admitting Clinician Unavailable HENRIETTA SANTOS Admitting Clinician Unavailable Henrietta Santos MD Admitting Clinician August FOSTER, Josey Admitting Clinician NATA DINERO Admitting Clinician Rajan De Leon MD, Erika Jade Admitting Clinician [phone] Payers Payer Name Policy Type Policy Number Effective Date Expiration Date Jodi rosenthal [employer] [id number] 2022 00:00:00 MEDICAID PENDING PENDING 2020 00:00:00 Problems Condition [...] Added automatic ally from request for surgery [id number] Nexplanon Nexplanon Disease Active Uni vers in [...] Active Univers ALLERGIE Class ity of S [facility] Social History Social Habit Start Date Stop Date Quantity Comments Source History SDOH University o f Alcohol Frequency [facility] edical Branch History SDOH University o f Alcohol Std [place] [facility] Dr[facility] Branch History SDOH University o f Alcohol Binge [facility] al Branch Exposure to 2022-06-15 2022-06-25 Not sure University of SARS-CoV-2 00:00:00 15:20:00 [facility] (event) Branch Alcohol intake 2022-06-22 2022-06-22 Current drinker of Un iversity of 00:00:00 00:00:00 alcohol (finding) [facility] Tobacco use and 2021-10-28 2021-10-28 Smokeless tobacco Un iversity of exposure 00:00:00 00:00:00 non-user [facility] Alcohol Comment 2021-08-24 2021-08-24 occasionally Univers ity of 00:00:00 00:00:00 [facility] Sex Assigned At [birth year] Universit y of 00:00:00 00:00:00 [facility] Smoking Status Start Date Stop Date Source Never smoked tobacco [facility] Medications Ordered Filled Start Stop Current Ordering Indication Dosage Frequency Signature Comments Components Source Medication Medication Date Date Medication? Clinician (SIG) Name Name solifenacin Yes [id number] 10mg Take 1 Univers (VESICARE) 3-10 tablet by ity of 10 mg 00:00: mouth in [place] tablet 00 the Medical morning. Branch solifenacin Yes [id number] 10mg Take 1 Univers (VESICARE) 3-10 tablet by ity of 10 mg 00:00: mouth in [place] tablet 00 the Medical morning. Branch solifenacin Yes [id number] 10mg Take 1 Univers (VESICARE) 3-10 tablet by ity of 10 mg 00:00: mouth in [place] tablet 00 the Medical morning. Branch FENTanyl PF 2022- No 75ug 75 mcg, Un shobha (SUBLIMAZE 06-22 Slow IV ity o f (PF)) 23:45: 22:58 Push, [place] injection 00 :00 ONCE, 1 Medical 75 mcg dose, On Branch Tue06/22/22 at 1745, STAT iopamidol 2022- No [id number] 87mL 87 mL, Univers (ISOVUE 06-22 Intravenou ity o f 370-500 mL) 22:00: 22:00 s, ONCE, 1 [place] injection 00 :00 dose, On Medica l 87 mL Tue06/22/22 Branch at 1600, Routine FENTanyl PF 2022- No 75ug 75 mcg, Un shobha (SUBLIMAZE 06-22 Slow IV ity o f (PF)) 20:30: 19:35 Push, [place] injection 00 :00 ONCE, 1 Medical 75 mcg dose, On Branch Tue06/22/22 at 1430, STAT metoclopram 2022- No 10mg 10 mg, Uni vers marco HCl 06-22 Slow IV ity of (REGLAN) 19:30: 19:31 Push, [place] injection 00 :00 ONCE, 1 Medical 10 mg dose, On Branch Tue06/22/22 at 1330, [place] traMADoL 50 2022-0 Yes [id number] 50mg Take 1 Univ ers mg tablet 3-07 tablet by ity o f 00:00: mouth [place] 00 every 6 Medical (six) Branch hours as needed for Pain (scale 4-6). Indication s: acute pain methylPREDN 2022-0 Yes [id number] Take by [facility] [employer] 4 06-22 mouth ity of mg tablets 00:00: [place]INSTRU [place] 00 CTIONS. Medical follow Branch package directions traMADoL 50 2022-0 Yes [id number] 50mg Take 1 Univ ers mg tablet 3-07 tablet by ity o f 00:00: mouth [place] 00 every 6 Medical (six) Branch hours as needed for Pain (scale 4-6). Indication s: acute pain methylPREDN 2022-0 Yes [id number] Take by 10-20 Media 4 06-22 mouth ity of mg tablets 00:00: [place] 00 CTIONS. Medical follow Branch package directions traMADoL 50 2022-0 Yes [id number] 50mg Take 1 Univ ers mg tablet 3-07 tablet by ity o f 00:00: mouth [place] 00 every 6 Medical (six) Branch hours as needed for Pain (scale 4-6). Indication s: acute pain methylPREDN 2022-0 Yes [id number] Take by Univers ISolone 4 06-22 mouth ity of mg tablets 00:00: [place] 00 CTIONS. Medical follow Branch package directions traMADoL 50 2022-0 Yes [id number] 50mg Take 1 Univ ers mg tablet 3- tablet by ity o f 00:00: mouth [place] 00 every 6 Medical (six) Branch hours as needed for Pain (scale 4-6). Indication s: acute pain methylPREDN 2022-0 Yes [id number] Take by Univers ISolone 4 - mouth ity of mg tablets 00:00: [place]INSTRU [place] 00 CTIONS. Medical follow Branch package directions cyclobenzap 2022- No 10mg Take 10 mg Univers rine 10 mg 05-19 by mouth ity of tablet 10:09: 00:00 as needed [place] 21 :00 for Muscle Medical Spasms. Branch cyclobenzap 2022- No 10mg Take 10 mg Univers rine 10 mg 05-19 by mouth ity of tablet 10:09: 00:00 as needed [place] 21 :00 for Muscle Medical Spasms. Branch solifenacin 2022- Yes [id number] 10mg Take 1 Univers (VESICARE) 05-19 tablet by ity of 10 mg 00:00: 05:59 mouth in [place] tablet 00 :00 the Medical morning Branch for 30 days. solifenacin 2022- Yes [id number] 10mg Take 1 Univers (VESICARE) 05-19 tablet by ity of 10 mg 00:00: 05:59 mouth in [place] tablet 00 :00 the Medical morning Branch for 30 days. solifenacin 2022-2022- Yes [id number] 10mg Take 1 Univers (VESICARE) 05-19 tablet by ity of 10 mg 00:00: 05:59 mouth in [place] tablet 00 :00 the Medical morning Branch for 30 days. fluconazole 2022-2022- Yes [id number] 150mg Take 1 Univers (DIFLUCAN) 05-18 tablet by ity of 150 mg 00:00: 05:59 mouth [place] tablet 00 :00 now for 1 Medical dose. Branch cyclobenzap 0 Yes 10mg Take 10 mg Univers rine 10 mg 1-24 by mouth ity o f tablet 16:00: as needed [place] 24 for Muscle Medical Spasms. Branch cyclobenzap 0 Yes 10mg Take 10 mg Univers rine 10 mg 1-24 by mouth ity o f tablet 16:00: as needed [place] 24 for Muscle Medical Spasms. Branch cyclobenzap 0 Yes 10mg Take 10 mg Univers rine 10 mg 1-24 by mouth ity o f tablet 16:00: as needed [place] 24 for Muscle Medical Spasms. Branch fluconazole 2021-04- No [id number] 150mg Take 1 Univers (DIFLUCAN) 2-13 tablet by ity of 150 mg 00:00: 05:59 [place] tablet 00 :00 now for 1 Medical dose. Branch fluconazole 2021-04- No [id number] 150mg Take 1 Univers (DIFLUCAN) 2-13 tablet by ity of 150 mg 00:00: 05:59 [place] tablet 00 :00 now for 1 Medical dose. Branch fluconazole 2021-04- No [id number] 150mg Take 1 Univers (DIFLUCAN) 2-13 tablet by ity of 150 mg 00:00: 05:59 [place] tablet 00 :00 now for 1 Medical dose. Branch ampicillin 2021-04- No [id number] 500mg Take 1 Univers 500 mg 05-29-19 capsule by ity of capsule 00:00: 05:59 mouth [place] 00 :00 every 6 Medical (six) Branch hours for 7 days. ampicillin 2021-04- No [id number] 500mg Take 1 Univers 500 mg 2-02 27-19 capsule by ity of capsule 00:00: 05:59 mouth [place] 00 :00 every 6 Medical (six) Branch hours for 7 days. ampicillin 2021-04- No [id number] 500mg Take 1 Univers 500 mg 2-19 capsule by ity of capsule 00:00: 05:59 mouth [place] 00 :00 every 6 Medical (six) Branch hours for 7 days. ampicillin 2021-04- No [id number] 500mg Take 1 Univers 500 mg 05-29 capsule by ity of capsule 00:00: 05:59 mouth [place] 00 :00 every 6 Medical (six) Branch hours for 7 days. ampicillin 2021-04- No [id number] 500mg Take 1 Univers 500 mg 05-29 capsule by ity of capsule 00:00: 05:59 mouth [place] 00 :00 every 6 Medical (six) Branch hours for 7 days. ampicillin 2021-04- No [id number] 500mg Take 1 Univers 500 mg 05-29 capsule by ity of capsule 00:00: 05:59 mouth [place] 00 :00 every 6 Medical (six) Branch hours for 7 days. triamcinolo 2021-04- No [id number] 40mg Univers ne 04-28 ity of acetonide 20:15: 19:31 [place] (KENALOG) 00 :00 Medical injection Branch 40 mg triamcinolo 2021-04- No [id number] 40mg 40 mg, Univers ne 04-28 Intramuscu ity of acetonide 20:15: 19:31 [place], ONCE, [place] (KENALOG) 00 :00 1 dose, On Medi suleiman injection Fri Branch 40 mg 02/26/22 at 1415, Routine triamcinolo 2021-04- No [id number] 40mg Univers ne 04-28 ity of acetonide 20:15: 19:31 [place] (KENALOG) 00 :00 Medical injection Branch 40 mg triamcinolo 2021-04- No [id number] 40mg 40 mg, Univers ne 04-28 Intramuscu ity of acetonide 20:15: 19:31 lar, ONCE, [place] (KENALOG) 00 :00 1 dose, On Medi suleiman injection Fri Branch 40 mg 02/26/22 at 1415, Routine triamcinolo 2021-04 Yes [id number] Apply to Univers ne -11 area(s) 2 ity of acetonide 00:00: (two) [place] 0.1 % 00 times Medical ointment daily. Branch triamcinolo 2021-04 Yes [id number] Apply to [facility] ne -11 area(s) 2 ity of acetonide 00:00: (two) [place] 0.1 % 00 times Medical ointment daily. Cesar marroquin 2021-04 Yes [id number] Apply to Univers ne 1-11 area(s) 2 ity of acetonide 00:00: (two) [place] 0.1 % 00 times Medical ointment daily. Cesar marroquin 2021-04 Yes [id number] Apply to Univers ne 1-11 area(s) 2 ity of acetonide 00:00: (two) [place] 0.1 % 00 times Medical ointment daily. Cesar marroquin 2021-04 Yes [id number] Apply to Univers ne 1-11 area(s) 2 ity of acetonide 00:00: (two) [place] 0.1 % 00 times Medical ointment daily. Cesar marroquin 2021-04 Yes [id number] Apply to [facility] ne 1-11 area(s) 2 ity of acetonide 00:00: (two) [place] 0.1 % 00 times Medical ointment daily. Cesar marroquin 2021-04 Yes [id number] Apply to Univers ne 1-11 area(s) 2 ity of acetonide 00:00: (two) [place] 0.1 % 00 times Medical ointment daily. Cesar marroquin 2021-04 Yes [id number] Apply to [facility] ne 1-11 area(s) 2 ity of acetonide 00:00: (two) [place] 0.1 % 00 times Medical ointment daily. Cesar marroquin 2021-04 Yes [id number] Apply to [facility] ne 1-11 area(s) 2 ity of acetonide 00:00: (two) [place] 0.1 % 00 times Medical ointment daily. Cesar marroquin 2021-04 Yes [id number] Apply to [facility] ne 1-11 area(s) 2 ity of acetonide 00:00: (two) [place] 0.1 % 00 times Medical ointment daily. Cesar valdesamcincatrachito 2021-04 Yes [id number] Apply to [facility] ne 1-11 area(s) 2 ity of acetonide 00:00: (two) [place] 0.1 % 00 times Medical ointment daily. Cesar valdesamcincatrachito 2021-04- No [id number] Apply to [place] [facility] 04-28 area(s) 2 ity of acetonide 00:00: 00:00 (two) [place] 0.1 % 00 :00 times Medical ointment daily. Branch triamcinolo 2021-04- No [id number] Apply to [place] [facility] 04-28 area(s) 2 ity of acetonide 00:00: 00:00 (two) [place] 0.1 % 00 :00 times Medical ointment daily. Branch triamcinolo 2021-04- No [id number] Apply to [place] [facility] 04-28 area(s) 2 ity of acetonide 00:00: 00:00 (two) [place] 0.1 % 00 :00 times Medical ointment daily. Branch triamcinolo 2021-04- No [id number] Apply to [place] [facility] 04-28 area(s) 2 ity of acetonide 00:00: 00:00 (two) [place] 0.1 % 00 :00 times Medical ointment daily. Branch predniSONE 2021-04- No [id number] 40mg Take 2 Univers 20 mg 04-28 tablets by ity of tablet 00:00: 05:59 mouth in [place] 00 :00 the Medical morning Branch for 5 days. predniSONE 2021-04- No [id number] 40mg Take 2 Univers 20 mg 04-28 tablets by ity of tablet 00:00: 05:59 mouth in [place] 00 :00 the Medical morning Branch for 5 days. metroNIDAZO 2021-04- No [id number] 500mg Take 1 Univers LE (FLAGYL) 04-26 tablet by it y of 500 mg 00:00: 05:59 mouth [place] tablet 00 :00 every 12 Medical (twelve) Branch hours for 7 days. metroNIDAZO 2021-04- No [id number] 500mg Take 1 Univers LE (FLAGYL) 04-26 tablet by it y of 500 mg 00:00: 05:59 mouth [place] tablet 00 :00 every 12 Medical (twelve) Branch hours for 7 days. metroNIDAZO 2021-04- No [id number] 500mg Take 1 Univers LE (FLAGYL) 04-26 tablet by it y of 500 mg 00:00: 05:59 mouth [place] tablet 00 :00 every 12 Medical (twelve) Branch hours for 7 days. fluconazole 2021-04- No [id number] 150mg Take 1 Univers (DIFLUCAN) 04-26 tablet by ity of 150 mg 00:00: 05:59 mouth [place] tablet 00 :00 every 72 Medical (seventy-t Branch wo) hours for 2 doses. fluconazole 2021-04- No [id number] 150mg Take 1 Univers (DIFLUCAN) 04-26 tablet by ity of 150 mg 00:00: 05:59 mouth [place] tablet 00 :00 every 72 Medical (seventy-t Branch wo) hours for 2 doses. fluconazole 2021-04- No [id number] 150mg Take 1 Univers (DIFLUCAN) 04-26 tablet by ity of 150 mg 00:00: 05:59 mouth [place] tablet 00 :00 every 72 Medical (seventy-t Branch wo) hours for 2 doses. Nitrofurant 2021-04- No [id number] 100mg Take 1 Univers oin&Nit. 04-24-13 capsule by ity of Macrocryst 00:00: 05:59 mouth in [place] (MACROBID) 00 :00 the Medical 100 mg morning Branch capsule and 1 capsule in the evening. Take with meals. Do all this for 5 days. Nitrofurant 2021-04- No [id number] 100mg Take 1 Univers oin&Nit. 04-24-13 capsule by ity of Macrocryst 00:00: 05:59 mouth in [place] (MACROBID) 00 :00 the Medical 100 mg morning Branch capsule and 1 capsule in the evening. Take with meals. Do all this for 5 days. Nitrofurant 2021-04- No [id number] 100mg Take 1 Univers oin&Nit. 04-24-13 capsule by ity of Macrocryst 00:00: 05:59 mouth in [place] (MACROBID) 00 :00 the Medical 100 mg morning Branch capsule and 1 capsule in the evening. Take with meals. Do all this for 5 days. Nitrofurant 2021-04- No [id number] 100mg Take 1 Univers oin&Nit. 04-24-13 capsule by ity of Macrocryst 00:00: 05:59 mouth in [place] (MACROBID) 00 :00 the Medical 100 mg morning Branch capsule and 1 capsule in the evening. Take with meals. Do all this for 5 days. Nitrofurant 2021-04- No [id number] 100mg Take 1 Univers oin&Nit. 04-24 11-13 capsule by ity of Macrocryst 00:00: 05:59 mouth in [place] (MACROBID) 00 :00 the Medical 100 mg morning Branch capsule and 1 capsule in the evening. Take with meals. Do all this for 5 days. simethicone 2021- No Take by Un shobha (GAS-X 7 07-13 mouth. ity of ORAL) 17:48: 00:00 [place] 35 :00 Medical Branch cyclobenzap 2021-0 Yes 10mg Take 10 mg Univers rine 10 mg 6-23 by mouth ity o f tablet 16:44: as needed [place] 32 for Muscle Medical Spasms. Branch FLUoxetine 2-0 Yes 10mg Take 10 mg U nivers 10 mg 6-23 by mouth 3 ity of capsule 16:44: (three) [place] 32 times Medical daily. Branch cyclobenzap 2-0 Yes 10mg Take 10 mg Univers rine 10 mg 6-23 by mouth ity o f tablet 16:44: as needed [place] 32 for Muscle Medical Spasms. Branch FLUoxetine 2-0 Yes 10mg Take 10 mg U nivers [...] (three) [place] 32 times Medical daily. Branch FLUoxetine 2022-0 Yes 10mg Take 10 mg U nivers 10 mg 6-23 by mouth 3 ity of capsule 16:44: (three) [place] 32 times Medical daily. Branch FLUoxetine 2022-0 Yes 10mg Take 10 mg U nivers 10 mg 6-23 by mouth 3 ity of capsule 16:44: (three) [place] 32 times Medical daily. Branch FLUoxetine 2022-0 Yes 10mg Take 10 mg U nivers 10 mg 6-23 by mouth 3 ity of capsule 16:44: (three) [place] 32 times Medical daily. Branch FLUoxetine 2022-0 Yes 10mg Take 10 mg U nivers 10 mg 6-23 by mouth 3 ity of capsule 16:44: (three) [place] 32 times Medical daily. Branch FLUoxetine 2022-0 Yes 10mg Take 10 mg U nivers 10 mg 6-23 by mouth 3 ity of capsule 16:44: (three) [place] 32 times Medical daily. Branch FLUoxetine 2022-0 Yes 10mg Take 10 mg U nivers 10 mg 6-23 by mouth 3 ity of capsule 16:44: (three) [place] 32 times Medical daily. Branch FLUoxetine 2022-0 Yes 10mg Take 10 mg U nivers 10 mg 6-23 by mouth 3 ity of capsule 16:44: (three) [place] 32 times Medical daily. Branch FLUoxetine 2022-0 Yes 10mg Take 10 mg U nivers 10 mg 6-23 by mouth 3 ity of capsule 16:44: (three) [place] 32 times Medical daily. Branch FLUoxetine 2022-0 Yes 10mg Take 10 mg U nivers 10 mg 6-23 by mouth 3 ity of capsule 16:44: (three) [place] 32 times Medical daily. Branch FLUoxetine 2022-0 Yes 10mg Take 10 mg U nivers 10 mg 6-23 by mouth 3 ity of capsule 16:44: (three) [place] 32 times Medical daily. Branch FLUoxetine 2022-0 Yes 10mg Take 10 mg U nivers 10 mg 6-23 by mouth 3 ity of capsule 16:44: (three) [place] 32 times Medical daily. Branch FLUoxetine 2022-0 Yes 10mg Take 10 mg U nivers 10 mg 6-23 by mouth 3 ity of capsule 16:44: (three) [place] 32 times Medical daily. Branch FLUoxetine 2022-0 Yes 10mg Take 10 mg U nivers 10 mg 6-23 by mouth 3 ity of capsule 16:44: (three) [place] 32 times Medical daily. Branch FLUoxetine 2021-0 Yes 10mg Take 10 mg U nivers 10 mg 6-23 by mouth 3 ity of capsule 16:44: (three) [place] 32 times Medical daily. Branch FLUoxetine 2021-0 Yes 10mg Take 10 mg U nivers 10 mg 6-23 by mouth 3 ity of capsule 16:44: (three) [place] 32 times Medical daily. Branch FLUoxetine 2021-0 Yes 10mg Take 10 mg U nivers 10 mg 6-23 by mouth 3 ity of capsule 16:44: (three) [place] 32 times Medical daily. Branch acetaminoph 2021- No [id number] 650mg Take 2 Univers en 6-21 -13 tablets by ity of (TYLENOL) 00:00: 00:00 mouth [place] 325 mg 00 :00 every 6 Medical tablet (six) Branch hours as needed for Pain (scale 1-3) or Pain (scale 4-6). simethicone 2021- No [id number] 80mg Take 1 Univers 80 mg -05 11-13 tablet by ity of chewable 00:00: 00:00 mouth [place] tablet 00 :00 after Medical meals and Branch at bedtime. ibuprofen 2021-2021- No [id number] 600mg Take 1 Univers 600 mg 6-21 - tablet by ity of tablet 00:00: 00:00 [...] y of Vaccine Quad .5 mL 00:00:00 [place] [facility] 6+ MO Branch TDAP 2018-09-26 Completed University of 00:00:00 [place] [facility] TDAP 2018-09-26 Completed University of 00:00:00 [place] [facility] TDAP 2018-09-26 Completed University of 00:00:00 [place] [facility] TDAP 2018-09-26 Completed University of 00:00:00 [place] [facility] TDAP 2018-09-26 Completed University of 00:00:00 [place] [facility] TDAP 2018-09-26 Completed University of 00:00:00 [place] [facility] [place] TDAP 2018-09-26 Completed University of 00:00:00 [place] [facility] [place] TDAP 2018-09-26 Completed University of 00:00:00 [place] [facility] [place] TDAP 2018-09-26 Completed University of 00:00:00 [place] [facility] TDAP 2018-09-26 Completed University of 00:00:00 [place] [facility] TDAP 2018-09-26 Completed University of 00:00:00 [place] [facility] TDAP 2018-09-26 Completed University of 00:00:00 [place] [facility] TDAP 2018-09-26 Completed University of 00:00:00 [place] [facility] TDAP 2018-09-26 Completed University of 00:00:00 [place] [facility] TDAP 2018-09-26 Completed University of 00:00:00 [place] [facility] TDAP 2018-09-26 Completed University of 00:00:00 [place] [facility] TDAP 2018-09-26 Completed University of 00:00:00 [place] [facility] TDAP 2018-09-26 Completed University of 00:00:00 [place] [facility] TDAP 2018-09-26 Completed University of 00:00:00 [place] [facility] TDAP 2018-09-26 Completed University of 00:00:00 [place] [facility] TDAP 2018-09-26 Completed University of 00:00:00 [place] [facility] TDAP 2018-09-26 Completed University of 00:00:00 [place] [facility] TDAP 2018-09-26 Completed University of 00:00:00 [place] [facility] TDAP 2018-09-26 Completed University of 00:00:00 [place] [facility] TDAP 2018-09-26 Completed University of 00:00:00 [place] [facility] TDAP 2018-09-26 Completed University of 00:00:00 [place] [facility] TDAP 2018-09-26 Completed University of 00:00:00 [place] [facility] TDAP 2018-09-26 Completed University of 00:00:00 [place] [facility] TDAP 2018-09-26 Completed University of 00:00:00 [place] [facility] TDAP 2018-09-26 Completed University of 00:00:00 [place] [facility] TDAP 2018-09-26 Completed University of 00:00:00 [place] [facility] TDAP 2018-09-26 Completed University of 00:00:00 [place] [facility] TDAP 2018-09-26 Completed University of 00:00:00 [place] [facility] TDAP 2018-09-26 Completed University of 00:00:00 [place] [facility] TDAP 2018-09-26 Completed University of 00:00:00 [place] [facility] TDAP 2018-09-26 Completed University of 00:00:00 [facility] TDAP 2018-09-26 Completed University of 00:00:00 [facility] TDAP 2018-09-26 Completed University of 00:00:00 [facility] Influenza Virus 2018-04-21 Completed Universit [...] y of Vaccine Quad .5 mL 00:00:00 [place] [facility] IM 6+ MO Branch Influenza Virus 2018-04-21 Completed Universit y of Vaccine [place] .5 mL 00:00:00 [place] [facility] IM 6+ MO Branch Influenza Virus 2018-04-21 Completed Universit y of Vaccine [place] .5 mL 00:00:00 [place] [facility] IM 6+ MO Branch Influenza Virus 2018-04-21 Completed Universit y of Vaccine [place] .5 mL 00:00:00 [place] [facility] IM 6+ MO Branch Influenza Virus 2018-04-21 Completed Universit y of Vaccine [place] .5 mL 00:00:00 [place] [facility] IM 6+ MO Branch Influenza Virus [...] y of Vaccine Quad .5 mL 00:00:00 [place] [facility] IM 6+ MO Branch Influenza Virus 2018-04-21 Completed Universit y of Vaccine Quad .5 mL 00:00:00 [place] [facility] IM 6+ MO Branch Influenza Virus 2018-04-21 Completed Universit y of Vaccine Quad .5 mL 00:00:00 [place] [facility] IM 6+ MO Branch Influenza Virus [...] y of Vaccine Quad .5 mL 00:00:00 [place] [facility] IM 6+ MO Branch HPV9 2016-02-13 Completed University of 00:00:00 [place] [facility] HPV9 2016-02-13 Completed University of 00:00:00 [place] [facility] HPV9 2016-02-13 Completed University of 00:00:00 [facility] Branch HPV9 2016-02-13 Completed University of 00:00:00 [facility] Branch HPV9 2016-02-13 Completed University of 00:00:00 [place] [facility] HPV9 2016-02-13 Completed University of 00:00:00 [place] [facility] [facility] HPV9 2016-02-13 Completed [facility] 00:00:00 [facility] HPV9 2016-02-13 Completed [facility] 00:00:00 [facility] HPV9 2016-02-13 Completed [facility] 00:00:00 [facility] HPV9 2016-02-13 Completed [facility] 00:00:00 [facility] HPV9 2016-02-13 Completed [facility] 00:00:00 [facility] HPV9 2016-02-13 Completed [facility] 00:00:00 [facility] HPV9 2016-02-13 Completed [facility] 00:00:00 [facility] HPV9 2016-02-13 Completed [facility] 00:00:00 [facility] HPV9 2016-02-13 Completed [facility] 00:00:00 [facility] HPV9 2016-02-13 Completed [facility] 00:00:00 [facility] HPV9 2016-02-13 Completed [facility] 00:00:00 [facility] HPV9 2016-02-13 Completed [facility] 00:00:00 [facility] HPV9 2016-02-13 Completed [facility] 00:00:00 [facility] HPV9 2016-02-13 Completed [facility] 00:00:00 [facility] HPV9 2016-02-13 Completed [facility] 00:00:00 [facility] HPV9 2016-02-13 Completed [facility] 00:00:00 [facility] HPV9 2016-02-13 Completed [facility] 00:00:00 [facility] HPV9 2016-02-13 Completed [facility] 00:00:00 [facility] HPV9 2016-02-13 Completed [facility] 00:00:00 [facility] HPV9 2016-02-13 Completed [facility] 00:00:00 [facility] HPV9 2016-02-13 Completed [facility] 00:00:00 [facility] HPV9 2016-02-13 Completed [facility] 00:00:00 [facility] HPV9 2016-02-13 Completed [facility] 00:00:00 [facility] HPV9 2016-02-13 Completed [facility] 00:00:00 [facility] HPV9 2016-02-13 Completed [facility] 00:00:00 [facility] HPV9 2016-02-13 Completed [facility] 00:00:00 [facility] HPV9 2016-02-13 Completed [facility] 00:00:00 [facility] HPV9 2016-02-13 Completed [facility] 00:00:00 [facility] HPV9 2016-02-13 Completed [facility] 00:00:00 [facility] HPV9 2016-02-13 Completed [facility] 00:00:00 [facility] HPV9 2016-02-13 Completed [facility] 00:00:00 [facility] HPV9 2016-02-13 Completed [facility] 00:00:00 [facility] HPV 2015-01-17 Completed [facility] 00:00:00 [facility] Meningococcal 2015-01-17 Completed [facility] Vaccine 00:00:00 [facility] HPV 2015-01-17 Completed [facility] 00:00:00 [facility] Meningococcal 2015-01-17 Completed [facility] Vaccine 00:00:00 [facility] HPV 2015-01-17 Completed [facility] 00:00:00 [facility] Meningococcal 2015-01-17 Completed [facility] Vaccine 00:00:00 [facility] HPV 2015-01-17 Completed [facility] 00:00:00 [facility] Meningococcal 2015-01-17 Completed [facility] Vaccine 00:00:00 [facility] HPV 2015-01-17 Completed [facility] 00:00:00 [facility] Meningococcal 2015-01-17 Completed [facility] Vaccine 00:00:00 [facility] HPV 2015-01-17 Completed [facility] 00:00:00 [facility] Meningococcal 2015-01-17 Completed [facility] Vaccine 00:00:00 [facility] HPV 2015-01-17 Completed [facility] 00:00:00 [facility] Meningococcal 2015-01-17 Completed [facility] Vaccine 00:00:00 [facility] HPV 2015-01-17 Completed [facility] 00:00:00 [facility] Meningococcal 2015-01-17 Completed [facility] Vaccine 00:00:00 [facility] HPV 2015-01-17 Completed [facility] 00:00:00 [facility] Meningococcal 2015-01-17 Completed [facility] Vaccine 00:00:00 [facility] HPV 2015-01-17 Completed [facility] 00:00:00 [facility] Meningococcal 2015-01-17 Completed [facility] Vaccine 00:00:00 [facility] HPV 2015-01-17 Completed [facility] 00:00:00 [facility] Meningococcal 2015-01-17 Completed [facility] Vaccine 00:00:00 [facility] HPV 2015-01-17 Completed [facility] 00:00:00 [facility] Meningococcal 2015-01-17 Completed [facility] Vaccine 00:00:00 [facility] HPV 2015-01-17 Completed [facility] 00:00:00 [facility] Meningococcal 2015-01-17 Completed [facility] Vaccine 00:00:00 [facility] HPV 2015-01-17 Completed [facility] 00:00:00 [facility] Meningococcal 2015-01-17 Completed [facility] Vaccine 00:00:00 [facility] HPV 2015-01-17 Completed [facility] 00:00:00 [facility] Meningococcal 2015-01-17 Completed [facility] Vaccine 00:00:00 [facility] HPV 2015-01-17 Completed [facility] 00:00:00 [facility] Meningococcal 2015-01-17 Completed [facility] Vaccine 00:00:00 [facility] HPV 2015-01-17 Completed [facility] 00:00:00 [facility] Meningococcal 2015-01-17 Completed [facility] Vaccine 00:00:00 [facility] HPV 2015-01-17 Completed [facility] 00:00:00 [facility] Meningococcal 2015-01-17 Completed [facility] Vaccine 00:00:00 [facility] HPV 2015-01-17 Completed [facility] 00:00:00 [facility] Meningococcal 2015-01-17 Completed [facility] Vaccine 00:00:00 [facility] HPV 2015-01-17 Completed [facility] 00:00:00 [facility] Meningococcal 2015-01-17 Completed [facility] Vaccine 00:00:00 [facility] HPV 2015-01-17 Completed [facility] 00:00:00 [facility] Meningococcal 2015-01-17 Completed [facility] Vaccine 00:00:00 [facility] HPV 2015-01-17 Completed [facility] 00:00:00 [facility] Meningococcal 2015-01-17 Completed [facility] Vaccine 00:00:00 [facility] HPV 2015-01-17 Completed [facility] 00:00:00 [facility] Meningococcal 2015-01-17 Completed [facility] Vaccine 00:00:00 [facility] HPV 2015-01-17 Completed [facility] 00:00:00 [facility] Meningococcal 2015-01-17 Completed [facility] Vaccine 00:00:00 [facility] HPV 2015-01-17 Completed [facility] 00:00:00 [facility] Meningococcal 2015-01-17 Completed [facility] Vaccine 00:00:00 [facility] HPV 2015-01-17 Completed [facility] 00:00:00 [facility] Meningococcal 2015-01-17 Completed [facility] Vaccine 00:00:00 [facility] HPV 2015-01-17 Completed [facility] 00:00:00 [facility] Meningococcal 2015-01-17 Completed [facility] Vaccine 00:00:00 [facility] HPV 2015-01-17 Completed [facility] 00:00:00 [facility] Meningococcal 2015-01-17 Completed [facility] Vaccine 00:00:00 [facility] HPV 2015-01-17 Completed [facility] 00:00:00 [facility] Meningococcal 2015-01-17 Completed [facility] Vaccine 00:00:00 [facility] HPV 2015-01-17 Completed [facility] 00:00:00 [facility] Meningococcal 2015-01-17 Completed [facility] Vaccine 00:00:00 [facility] HPV 2015-01-17 Completed [facility] 00:00:00 [facility] Meningococcal 2015-01-17 Completed [facility] Vaccine 00:00:00 [facility] HPV 2015-01-17 Completed [facility] 00:00:00 [facility] Meningococcal 2015-01-17 Completed [facility] Vaccine 00:00:00 [facility] HPV 2015-01-17 Completed [facility] 00:00:00 [facility] Meningococcal 2015-01-17 Completed [facility] Vaccine 00:00:00 [facility] HPV 2015-01-17 Completed [facility] 00:00:00 [facility] Meningococcal 2015-01-17 Completed [facility] Vaccine 00:00:00 [facility] HPV 2015-01-17 Completed [facility] 00:00:00 [facility] Meningococcal 2015-01-17 Completed [facility] Vaccine 00:00:00 [facility] HPV 2015-01-17 Completed [facility] 00:00:00 [facility] Meningococcal 2015-01-17 Completed [facility] Vaccine 00:00:00 [facility] HPV 2015-01-17 Completed [facility] 00:00:00 [facility] Meningococcal 2015-01-17 Completed [facility] Vaccine 00:00:00 [facility] HPV 2015-01-17 Completed [facility] 00:00:00 [facility] Meningococcal 2015-01-17 Completed [facility] Vaccine 00:00:00 [facility] Varicella 2011-03-01 Completed [facility] of (varivax)(chicken 00:00:00 [...] Branch HPV 2009-11-17 Completed [facility] 00:00:00 [facility] Meningococcal 2009-11-17 Completed [facility] Vaccine 00:00:00 [facility] TDAP 2009-11-17 Completed [facility] 00:00:00 [facility] HPV 2009-11-17 Completed [facility] 00:00:00 [facility] Meningococcal 2009-11-17 Completed [facility] Vaccine 00:00:00 [facility] TDAP 2009-11-17 Completed [facility] 00:00:00 [facility] HPV 2009-11-17 Completed [facility] 00:00:00 [facility] Meningococcal 2009-11-17 Completed [facility] Vaccine 00:00:00 [facility] TDAP 2009-11-17 Completed [facility] 00:00:00 [facility] HPV 2009-11-17 Completed [facility] 00:00:00 [facility] Meningococcal 2009-11-17 Completed [facility] Vaccine 00:00:00 [facility] TDAP 2009-11-17 Completed [facility] 00:00:00 [facility] HPV 2009-11-17 Completed [facility] 00:00:00 [facility] Meningococcal 2009-11-17 Completed [facility] Vaccine 00:00:00 [facility] TDAP 2009-11-17 Completed [facility] 00:00:00 [facility] HPV 2009-11-17 Completed [facility] 00:00:00 [facility] Meningococcal 2009-11-17 Completed [facility] Vaccine 00:00:00 [facility] TDAP 2009-11-17 Completed [facility] 00:00:00 [facility] HPV 2009-11-17 Completed [facility] 00:00:00 [facility] Meningococcal 2009-11-17 Completed [facility] Vaccine 00:00:00 [facility] TDAP 2009-11-17 Completed [facility] 00:00:00 [facility] HPV 2009-11-17 Completed [facility] 00:00:00 [facility] Meningococcal 2009-11-17 Completed [facility] Vaccine 00:00:00 [facility] TDAP 2009-11-17 Completed [facility] 00:00:00 [facility] HPV 2009-11-17 Completed [facility] 00:00:00 [facility] Meningococcal 2009-11-17 Completed [facility] Vaccine 00:00:00 [facility] TDAP 2009-11-17 Completed [facility] 00:00:00 [facility] HPV 2009-11-17 Completed [facility] 00:00:00 [facility] Meningococcal 2009-11-17 Completed [facility] Vaccine 00:00:00 [facility] TDAP 2009-11-17 Completed [facility] 00:00:00 [facility] HPV 2009-11-17 Completed [facility] 00:00:00 [facility] Meningococcal 2009-11-17 Completed [facility] Vaccine 00:00:00 [facility] TDAP 2009-11-17 Completed [facility] 00:00:00 [facility] HPV 2009-11-17 Completed [facility] 00:00:00 [facility] Meningococcal 2009-11-17 Completed [facility] Vaccine 00:00:00 [facility] TDAP 2009-11-17 Completed [facility] 00:00:00 [facility] HPV 2009-11-17 Completed [facility] 00:00:00 [facility] Meningococcal 2009-11-17 Completed [facility] Vaccine 00:00:00 [facility] TDAP 2009-11-17 Completed [facility] 00:00:00 [facility] HPV 2009-11-17 Completed [facility] 00:00:00 [facility] Meningococcal 2009-11-17 Completed [facility] Vaccine 00:00:00 [facility] TDAP 2009-11-17 Completed [facility] 00:00:00 [facility] HPV 2009-11-17 Completed [facility] 00:00:00 [facility] Meningococcal 2009-11-17 Completed [facility] Vaccine 00:00:00 [facility] TDAP 2009-11-17 Completed [facility] 00:00:00 [facility] HPV 2009-11-17 Completed [facility] 00:00:00 [facility] Meningococcal 2009-11-17 Completed [facility] Vaccine 00:00:00 [facility] TDAP 2009-11-17 Completed [facility] 00:00:00 [facility] HPV 2009-11-17 Completed [facility] 00:00:00 [facility] Meningococcal 2009-11-17 Completed [facility] Vaccine 00:00:00 [facility] TDAP 2009-11-17 Completed [facility] 00:00:00 [facility] HPV 2009-11-17 Completed [facility] 00:00:00 [facility] Meningococcal 2009-11-17 Completed [facility] Vaccine 00:00:00 [facility] TDAP 2009-11-17 Completed [facility] 00:00:00 [facility] HPV 2009-11-17 Completed [facility] 00:00:00 [facility] Meningococcal 2009-11-17 Completed [facility] Vaccine 00:00:00 [facility] TDAP 2009-11-17 Completed [facility] 00:00:00 [facility] HPV 2009-11-17 Completed [facility] 00:00:00 [facility] Meningococcal 2009-11-17 Completed [facility] Vaccine 00:00:00 [facility] TDAP 2009-11-17 Completed [facility] 00:00:00 [facility] HPV 2009-11-17 Completed [facility] 00:00:00 [facility] Meningococcal 2009-11-17 Completed [facility] Vaccine 00:00:00 [facility] TDAP 2009-11-17 Completed [facility] 00:00:00 [facility] HPV 2009-11-17 Completed [facility] 00:00:00 [facility] Meningococcal 2009-11-17 Completed [facility] Vaccine 00:00:00 [facility] TDAP 2009-11-17 Completed [facility] 00:00:00 [facility] HPV 2009-11-17 Completed [facility] 00:00:00 [facility] Meningococcal 2009-11-17 Completed [facility] Vaccine 00:00:00 [facility] TDAP 2009-11-17 Completed [facility] 00:00:00 [facility] HPV 2009-11-17 Completed [facility] 00:00:00 [facility] Meningococcal 2009-11-17 Completed [facility] Vaccine 00:00:00 [facility] TDAP 2009-11-17 Completed [facility] 00:00:00 [facility] HPV 2009-11-17 Completed [facility] 00:00:00 [facility] Meningococcal 2009-11-17 Completed [facility] Vaccine 00:00:00 [facility] TDAP 2009-11-17 Completed [facility] 00:00:00 [facility] HPV 2009-11-17 Completed [facility] 00:00:00 [facility] Meningococcal 2009-11-17 Completed [facility] Vaccine 00:00:00 [facility] TDAP 2009-11-17 Completed [facility] 00:00:00 [facility] HPV 2009-11-17 Completed [facility] 00:00:00 [facility] Meningococcal 2009-11-17 Completed [facility] Vaccine 00:00:00 [facility] TDAP 2009-11-17 Completed [facility] 00:00:00 [facility] HPV 2009-11-17 Completed [facility] 00:00:00 [facility] Meningococcal 2009-11-17 Completed [facility] Vaccine 00:00:00 [facility] TDAP 2009-11-17 Completed [facility] 00:00:00 [facility] HPV 2009-11-17 Completed [facility] 00:00:00 [facility] Meningococcal 2009-11-17 Completed [facility] Vaccine 00:00:00 [facility] TDAP 2009-11-17 Completed [facility] 00:00:00 [facility] HPV 2009-11-17 Completed [facility] 00:00:00 [facility] Meningococcal 2009-11-17 Completed [facility] Vaccine 00:00:00 [facility] TDAP 2009-11-17 Completed [facility] 00:00:00 [facility] HPV 2009-11-17 Completed [facility] 00:00:00 [facility] Meningococcal 2009-11-17 Completed [facility] Vaccine 00:00:00 [facility] TDAP 2009-11-17 Completed [facility] 00:00:00 [facility] HPV 2009-11-17 Completed [facility] 00:00:00 [facility] Meningococcal 2009-11-17 Completed [facility] Vaccine 00:00:00 [facility] TDAP 2009-11-17 Completed [facility] 00:00:00 [facility] HPV 2009-11-17 Completed [facility] 00:00:00 [facility] Meningococcal 2009-11-17 Completed [facility] Vaccine 00:00:00 [facility] TDAP 2009-11-17 Completed [facility] 00:00:00 [facility] HPV 2009-11-17 Completed [facility] 00:00:00 [facility] Meningococcal 2009-11-17 Completed [facility] Vaccine 00:00:00 [facility] TDAP 2009-11-17 Completed [facility] 00:00:00 [facility] HPV 2009-11-17 Completed [facility] 00:00:00 [facility] Meningococcal 2009-11-17 Completed [facility] Vaccine 00:00:00 [facility] TDAP 2009-11-17 Completed [facility] 00:00:00 [facility] HPV 2009-11-17 Completed [facility] 00:00:00 [facility] Meningococcal 2009-11-17 Completed [facility] Vaccine 00:00:00 [facility] TDAP 2009-11-17 Completed [facility] 00:00:00 [facility] HPV 2009-11-17 Completed [facility] 00:00:00 [facility] Meningococcal 2009-11-17 Completed [facility] Vaccine 00:00:00 [facility] TDAP 2009-11-17 Completed [facility] 00:00:00 [facility] HPV 2009-11-17 Completed [facility] 00:00:00 [facility] Meningococcal 2009-11-17 Completed [facility] Vaccine 00:00:00 [facility] TDAP 2009-11-17 Completed [facility] 00:00:00 [facility] DTAP 2002-04-05 Completed [facility] 00:00:00 [facility] MMR 2002-04-05 Completed [facility] 00:00:00 [facility] Polio (IPV/OPV) 2002-04-05 Completed [facility] 00:00:00 [facility] DTAP 2002-04-05 Completed [facility] 00:00:00 [facility] MMR 2002-04-05 Completed [facility] 00:00:00 [facility] Polio (IPV/OPV) 2002-04-05 Completed [facility] 00:00:00 [facility] DTAP 2002-04-05 Completed [facility] 00:00:00 [facility] MMR 2002-04-05 Completed [facility] 00:00:00 [facility] Polio (IPV/OPV) 2002-04-05 Completed [facility] 00:00:00 [facility] DTAP 2002-04-05 Completed [facility] 00:00:00 [facility] MMR 2002-04-05 Completed [facility] 00:00:00 [facility] Polio (IPV/OPV) 2002-04-05 Completed [facility] 00:00:00 [facility] DTAP 2002-04-05 Completed [facility] 00:00:00 [facility] MMR 2002-04-05 Completed [facility] 00:00:00 [facility] Polio (IPV/OPV) 2002-04-05 Completed [facility] 00:00:00 [facility] DTAP 2002-04-05 Completed [facility] 00:00:00 [facility] MMR 2002-04-05 Completed [facility] 00:00:00 [facility] Polio (IPV/OPV) 2002-04-05 Completed [facility] 00:00:00 [facility] DTAP 2002-04-05 Completed [facility] 00:00:00 [facility] MMR 2002-04-05 Completed [facility] 00:00:00 [facility] Polio (IPV/OPV) 2002-04-05 Completed [facility] 00:00:00 [facility] DTAP 2002-04-05 Completed [facility] 00:00:00 [facility] MMR 2002-04-05 Completed [facility] 00:00:00 [facility] Polio (IPV/OPV) 2002-04-05 Completed [facility] 00:00:00 [facility] DTAP 2002-04-05 Completed [facility] 00:00:00 [facility] MMR 2002-04-05 Completed [facility] 00:00:00 [facility] Polio (IPV/OPV) 2002-04-05 Completed [facility] 00:00:00 [facility] DTAP 2002-04-05 Completed [facility] 00:00:00 [facility] MMR 2002-04-05 Completed [facility] 00:00:00 [facility] Polio (IPV/OPV) 2002-04-05 Completed [facility] 00:00:00 [facility] DTAP 2002-04-05 Completed [facility] 00:00:00 [facility] MMR 2002-04-05 Completed [facility] 00:00:00 [facility] Polio (IPV/OPV) 2002-04-05 Completed [facility] 00:00:00 [facility] DTAP 2002-04-05 Completed [facility] 00:00:00 [facility] MMR 2002-04-05 Completed [facility] 00:00:00 [facility] Polio (IPV/OPV) 2002-04-05 Completed [facility] 00:00:00 [facility] DTAP 2002-04-05 Completed [facility] 00:00:00 [facility] MMR 2002-04-05 Completed [facility] 00:00:00 [facility] Polio (IPV/OPV) 2002-04-05 Completed [facility] 00:00:00 [facility] DTAP 2002-04-05 Completed [facility] 00:00:00 [facility] MMR 2002-04-05 Completed [facility] 00:00:00 [facility] Polio (IPV/OPV) 2002-04-05 Completed [facility] 00:00:00 [facility] DTAP 2002-04-05 Completed [facility] 00:00:00 [facility] MMR 2002-04-05 Completed [facility] 00:00:00 [facility] Polio (IPV/OPV) 2002-04-05 Completed [facility] 00:00:00 [facility] DTAP 2002-04-05 Completed [facility] 00:00:00 [facility] MMR 2002-04-05 Completed [facility] 00:00:00 [facility] Polio (IPV/OPV) 2002-04-05 Completed [facility] 00:00:00 [facility] DTAP 2002-04-05 Completed [facility] 00:00:00 [facility] MMR 2002-04-05 Completed [facility] 00:00:00 [facility] Polio (IPV/OPV) 2002-04-05 Completed [facility] 00:00:00 [facility] DTAP 2002-04-05 Completed [facility] 00:00:00 [facility] MMR 2002-04-05 Completed [facility] 00:00:00 [facility] Polio (IPV/OPV) 2002-04-05 Completed [facility] 00:00:00 [facility] DTAP 2002-04-05 Completed [facility] 00:00:00 [facility] MMR 2002-04-05 Completed [facility] 00:00:00 [facility] Polio (IPV/OPV) 2002-04-05 Completed [facility] 00:00:00 [facility] DTAP 2002-04-05 Completed [facility] 00:00:00 [facility] MMR 2002-04-05 Completed [facility] 00:00:00 [facility] Polio (IPV/OPV) 2002-04-05 Completed [facility] 00:00:00 [facility] DTAP 2002-04-05 Completed [facility] 00:00:00 [facility] MMR 2002-04-05 Completed [facility] 00:00:00 [facility] Polio (IPV/OPV) 2002-04-05 Completed [facility] 00:00:00 [facility] DTAP 2002-04-05 Completed [facility] 00:00:00 [facility] MMR 2002-04-05 Completed [facility] 00:00:00 [facility] Polio (IPV/OPV) 2002-04-05 Completed [facility] 00:00:00 [facility] DTAP 2002-04-05 Completed [facility] 00:00:00 [facility] MMR 2002-04-05 Completed [facility] 00:00:00 [facility] Polio (IPV/OPV) 2002-04-05 Completed [facility] 00:00:00 [facility] DTAP 2002-04-05 Completed [facility] 00:00:00 [facility] MMR 2002-04-05 Completed [facility] 00:00:00 [facility] Polio (IPV/OPV) 2002-04-05 Completed [facility] 00:00:00 [facility] DTAP 2002-04-05 Completed [facility] 00:00:00 [facility] MMR 2002-04-05 Completed [facility] 00:00:00 [facility] Polio (IPV/OPV) 2002-04-05 Completed [facility] 00:00:00 [facility] DTAP 2002-04-05 Completed [facility] 00:00:00 [facility] MMR 2002-04-05 Completed [facility] 00:00:00 [facility] Polio (IPV/OPV) 2002-04-05 Completed [facility] 00:00:00 [facility] DTAP 2002-04-05 Completed [facility] 00:00:00 [facility] MMR 2002-04-05 Completed [facility] 00:00:00 [facility] Polio (IPV/OPV) 2002-04-05 Completed [facility] 00:00:00 [facility] DTAP 2002-04-05 Completed [facility] 00:00:00 [facility] MMR 2002-04-05 Completed [facility] 00:00:00 [facility] Polio (IPV/OPV) 2002-04-05 Completed [facility] 00:00:00 [facility] DTAP 2002-04-05 Completed [facility] 00:00:00 [facility] MMR 2002-04-05 Completed [facility] 00:00:00 [facility] Polio (IPV/OPV) 2002-04-05 Completed [facility] 00:00:00 [facility] DTAP 2002-04-05 Completed [facility] 00:00:00 [facility] MMR 2002-04-05 Completed [facility] 00:00:00 [facility] Polio (IPV/OPV) 2002-04-05 Completed [facility] 00:00:00 [facility] DTAP 2002-04-05 Completed [facility] 00:00:00 [facility] MMR 2002-04-05 Completed [facility] 00:00:00 [facility] Polio (IPV/OPV) 2002-04-05 Completed [facility] 00:00:00 [facility] DTAP 2002-04-05 Completed [facility] 00:00:00 [facility] MMR 2002-04-05 Completed [facility] 00:00:00 [facility] Polio (IPV/OPV) 2002-04-05 Completed [facility] 00:00:00 [facility] DTAP 2002-04-05 Completed [facility] 00:00:00 [facility] MMR 2002-04-05 Completed [facility] 00:00:00 [facility] Polio (IPV/OPV) 2002-04-05 Completed [facility] 00:00:00 [facility] DTAP 2002-04-05 Completed [facility] 00:00:00 [facility] MMR 2002-04-05 Completed [facility] 00:00:00 [facility] Polio (IPV/OPV) 2002-04-05 Completed [facility] 00:00:00 [facility] DTAP 2002-04-05 Completed [facility] 00:00:00 [facility] MMR 2002-04-05 Completed [facility] 00:00:00 [facility] Polio (IPV/OPV) 2002-04-05 Completed [facility] 00:00:00 [facility] DTAP 2002-04-05 Completed [facility] 00:00:00 [facility] MMR 2002-04-05 Completed [facility] 00:00:00 [facility] Polio (IPV/OPV) 2002-04-05 Completed [facility] 00:00:00 [facility] DTAP 2002-04-05 Completed [facility] 00:00:00 [facility] MMR 2002-04-05 Completed [facility] 00:00:00 [facility] Polio (IPV/OPV) 2002-04-05 Completed [facility] 00:00:00 [facility] DTAP 2002-04-05 Completed [facility] 00:00:00 [facility] MMR 2002-04-05 Completed [facility] 00:00:00 [facility] Polio (IPV/OPV) 2002-04-05 Completed [facility] 00:00:00 [facility] DTAP 2001-11-28 Completed [facility] 00:00:00 [facility] MMR 2001-11-28 Completed [facility] 00:00:00 [facility] Polio (IPV/OPV) 2001-11-28 Completed [facility] 00:00:00 [facility] Varicella 2001-11-28 Completed [facility] (varivax)(chicken 00:00:00 [facility] DTAP 2001-11-28 Completed [facility] 00:00:00 [facility] MMR 2001-11-28 Completed [facility] 00:00:00 [facility] Polio (IPV/OPV) 2001-11-28 Completed [facility] 00:00:00 [facility] Varicella 2001-11-28 Completed [facility] (varivax)(chicken 00:00:00 [facility] DTAP 2001-11-28 Completed [facility] 00:00:00 [facility] MMR 2001-11-28 Completed [facility] 00:00:00 [facility] Polio (IPV/OPV) 2001-11-28 Completed [facility] 00:00:00 [facility] Varicella 2001-11-28 Completed [facility] (varivax)(chicken 00:00:00 [facility] DTAP 2001-11-28 Completed [facility] 00:00:00 [facility] MMR 2001-11-28 Completed [facility] 00:00:00 [facility] Polio (IPV/OPV) 2001-11-28 Completed [facility] 00:00:00 [facility] Varicella 2001-11-28 Completed [facility] (varivax)(chicken 00:00:00 [facility] DTAP 2001-11-28 Completed [facility] 00:00:00 [facility] MMR 2001-11-28 Completed [facility] 00:00:00 [facility] Polio (IPV/OPV) 2001-11-28 Completed [facility] 00:00:00 [facility] Varicella 2001-11-28 Completed [facility] (varivax)(chicken 00:00:00 [facility] DTAP 2001-11-28 Completed [facility] 00:00:00 [facility] MMR 2001-11-28 Completed [facility] 00:00:00 [facility] Polio (IPV/OPV) 2001-11-28 Completed [facility] 00:00:00 [facility] Varicella 2001-11-28 Completed [facility] (varivax)(chicken 00:00:00 [facility] DTAP 2001-11-28 Completed [facility] 00:00:00 [facility] MMR 2001-11-28 Completed [facility] 00:00:00 [facility] Polio (IPV/OPV) 2001-11-28 Completed [facility] 00:00:00 [facility] Varicella 2001-11-28 Completed [facility] (varivax)(chicken 00:00:00 [facility] DTAP 2001-11-28 Completed [facility] 00:00:00 [facility] MMR 2001-11-28 Completed [facility] 00:00:00 [facility] Polio (IPV/OPV) 2001-11-28 Completed [facility] 00:00:00 [facility] Varicella 2001-11-28 Completed [facility] (varivax)(chicken 00:00:00 [facility] DTAP 2001-11-28 Completed [facility] 00:00:00 [facility] MMR 2001-11-28 Completed [facility] 00:00:00 [facility] Polio (IPV/OPV) 2001-11-28 Completed [facility] 00:00:00 [facility] Varicella 2001-11-28 Completed [facility] (varivax)(chicken 00:00:00 [facility] DTAP 2001-11-28 Completed [facility] 00:00:00 [facility] MMR 2001-11-28 Completed [facility] 00:00:00 [facility] Polio (IPV/OPV) 2001-11-28 Completed [facility] 00:00:00 [facility] Varicella 2001-11-28 Completed [facility] (varivax)(chicken 00:00:00 [place] [facility] DTAP 2001-11-28 Completed [facility] 00:00:00 [facility] MMR 2001-11-28 Completed [facility] 00:00:00 [facility] Polio (IPV/OPV) 2001-11-28 Completed [facility] 00:00:00 [facility] Varicella 2001-11-28 Completed [facility] (varivax)(chicken 00:00:00 [place] [facility] DTAP 2001-11-28 Completed [facility] 00:00:00 [facility] MMR 2001-11-28 Completed [facility] 00:00:00 [facility] Polio (IPV/OPV) 2001-11-28 Completed [facility] 00:00:00 [facility] Varicella 2001-11-28 Completed [facility] (varivax)(chicken 00:00:00 [place] [facility] DTAP 2001-11-28 Completed [facility] 00:00:00 [facility] MMR 2001-11-28 Completed [facility] 00:00:00 [facility] Polio (IPV/OPV) 2001-11-28 Completed [facility] 00:00:00 [facility] Varicella 2001-11-28 Completed [facility] (varivax)(chicken 00:00:00 [facility] DTAP 2001-11-28 Completed [facility] 00:00:00 [facility] MMR 2001-11-28 Completed [facility] 00:00:00 [facility] Polio (IPV/OPV) 2001-11-28 Completed [facility] 00:00:00 [facility] Varicella 2001-11-28 Completed [facility] (varivax)(chicken 00:00:00 [place] [facility] DTAP 2001-11-28 Completed [facility] 00:00:00 [facility] MMR 2001-11-28 Completed [facility] 00:00:00 [facility] Polio (IPV/OPV) 2001-11-28 Completed [facility] 00:00:00 [facility] Varicella 2001-11-28 Completed [facility] (varivax)(chicken 00:00:00 [place] [facility] DTAP 2001-11-28 Completed [facility] 00:00:00 [facility] MMR 2001-11-28 Completed [facility] 00:00:00 [facility] Polio (IPV/OPV) 2001-11-28 Completed [facility] 00:00:00 [facility] Varicella 2001-11-28 Completed [facility] (varivax)(chicken 00:00:00 [place] [facility] DTAP 2001-11-28 Completed [facility] 00:00:00 [facility] MMR 2001-11-28 Completed [facility] 00:00:00 [facility] Polio (IPV/OPV) 2001-11-28 Completed [facility] 00:00:00 [facility] Varicella 2001-11-28 Completed [facility] (varivax)(chicken 00:00:00 [facility] DTAP 2001-11-28 Completed [facility] 00:00:00 [facility] MMR 2001-11-28 Completed [facility] 00:00:00 [facility] Polio (IPV/OPV) 2001-11-28 Completed [facility] 00:00:00 [facility] Varicella 2001-11-28 Completed [facility] (varivax)(chicken 00:00:00 [place] [facility] DTAP 2001-11-28 Completed [facility] 00:00:00 [facility] MMR 2001-11-28 Completed [facility] 00:00:00 [facility] Polio (IPV/OPV) 2001-11-28 Completed [facility] 00:00:00 [facility] Varicella 2001-11-28 Completed [facility] (varivax)(chicken 00:00:00 [place] [facility] DTAP 2001-11-28 Completed [facility] 00:00:00 [facility] MMR 2001-11-28 Completed [facility] 00:00:00 [facility] Polio (IPV/OPV) 2001-11-28 Completed [facility] 00:00:00 [facility] Varicella 2001-11-28 Completed [facility] (varivax)(chicken 00:00:00 [place] [facility] DTAP 2001-11-28 Completed [facility] 00:00:00 [facility] MMR 2001-11-28 Completed [facility] 00:00:00 [facility] Polio (IPV/OPV) 2001-11-28 Completed [facility] 00:00:00 [facility] Varicella 2001-11-28 Completed [facility] (varivax)(chicken 00:00:00 [place] [facility] DTAP 2001-11-28 Completed [facility] 00:00:00 [facility] MMR 2001-11-28 Completed [facility] 00:00:00 [facility] Polio (IPV/OPV) 2001-11-28 Completed [facility] 00:00:00 [facility] Varicella 2001-11-28 Completed [facility] (varivax)(chicken 00:00:00 [facility] pox) [facility] DTAP 2001-11-28 Completed [facility] 00:00:00 [facility] MMR 2001-11-28 Completed [facility] 00:00:00 [facility] Polio (IPV/OPV) 2001-11-28 Completed [facility] 00:00:00 [facility] Varicella 2001-11-28 Completed [facility] (varivax)(chicken 00:00:00 [place] [facility] DTAP 2001-11-28 Completed [facility] 00:00:00 [facility] MMR 2001-11-28 Completed [facility] 00:00:00 [facility] Polio (IPV/OPV) 2001-11-28 Completed [facility] 00:00:00 [facility] Varicella 2001-11-28 Completed [facility] (varivax)(chicken 00:00:00 [place] [facility] DTAP 2001-11-28 Completed [facility] 00:00:00 [facility] MMR 2001-11-28 Completed [facility] 00:00:00 [facility] Polio (IPV/OPV) 2001-11-28 Completed [facility] 00:00:00 [facility] Varicella 2001-11-28 Completed [facility] (varivax)(chicken 00:00:00 [place] [facility] DTAP 2001-11-28 Completed [facility] 00:00:00 [facility] MMR 2001-11-28 Completed [facility] 00:00:00 [facility] Polio (IPV/OPV) 2001-11-28 Completed [facility] 00:00:00 [facility] Varicella 2001-11-28 Completed [facility] (varivax)(chicken 00:00:00 [place] [facility] DTAP 2001-11-28 Completed [facility] 00:00:00 [facility] MMR 2001-11-28 Completed [facility] 00:00:00 [facility] Polio (IPV/OPV) 2001-11-28 Completed [facility] 00:00:00 [facility] Varicella 2001-11-28 Completed [facility] (varivax)(chicken 00:00:00 [place] [facility] DTAP 2001-11-28 Completed [facility] 00:00:00 [facility] MMR 2001-11-28 Completed [facility] 00:00:00 [facility] Polio (IPV/OPV) 2001-11-28 Completed [facility] 00:00:00 [facility] Varicella 2001-11-28 Completed [facility] (varivax)(chicken 00:00:00 [place] [facility] DTAP 2001-11-28 Completed [facility] 00:00:00 [facility] MMR 2001-11-28 Completed [facility] 00:00:00 [facility] Polio (IPV/OPV) 2001-11-28 Completed [facility] 00:00:00 [facility] Varicella 2001-11-28 Completed [facility] (varivax)(chicken 00:00:00 [place] [facility] DTAP 2001-11-28 Completed [facility] 00:00:00 [facility] MMR 2001-11-28 Completed [facility] 00:00:00 [facility] Polio (IPV/OPV) 2001-11-28 Completed [facility] 00:00:00 [facility] Varicella 2001-11-28 Completed [facility] (varivax)(chicken 00:00:00 [place] [facility] DTAP 2001-11-28 Completed [facility] 00:00:00 [facility] MMR 2001-11-28 Completed [facility] 00:00:00 [facility] Polio (IPV/OPV) 2001-11-28 Completed [facility] 00:00:00 [facility] Varicella 2001-11-28 Completed [facility] (varivax)(chicken 00:00:00 [place] [facility] DTAP 2001-11-28 Completed [facility] 00:00:00 [facility] MMR 2001-11-28 Completed [facility] 00:00:00 [facility] Polio (IPV/OPV) 2001-11-28 Completed [facility] 00:00:00 [facility] Varicella 2001-11-28 Completed [facility] (varivax)(chicken 00:00:00 [place] [facility] DTAP 2001-11-28 Completed [facility] 00:00:00 [facility] MMR 2001-11-28 Completed [facility] 00:00:00 [facility] Polio (IPV/OPV) 2001-11-28 Completed [facility] 00:00:00 [facility] Varicella 2001-11-28 Completed [facility] (varivax)(chicken 00:00:00 [place] [facility] DTAP 2001-11-28 Completed [facility] 00:00:00 [facility] MMR 2001-11-28 Completed [facility] 00:00:00 [facility] Polio (IPV/OPV) 2001-11-28 Completed [facility] 00:00:00 [facility] Varicella 2001-11-28 Completed [facility] (varivax)(chicken 00:00:00 [place] [facility] DTAP 2001-11-28 Completed [facility] 00:00:00 [facility] MMR 2001-11-28 Completed [facility] 00:00:00 [facility] Polio (IPV/OPV) 2001-11-28 Completed [facility] 00:00:00 [facility] Varicella 2001-11-28 Completed [facility] (varivax)(chicken 00:00:00 [place] [facility] DTAP 2001-11-28 Completed [facility] 00:00:00 [facility] MMR 2001-11-28 Completed [facility] 00:00:00 [facility] Polio (IPV/OPV) 2001-11-28 Completed [facility] 00:00:00 [facility] Varicella 2001-11-28 Completed [facility] (varivax)(chicken 00:00:00 [place] [facility] DTAP 2001-11-28 Completed [facility] 00:00:00 [facility] MMR 2001-11-28 Completed [facility] 00:00:00 [facility] Polio (IPV/OPV) 2001-11-28 Completed [facility] 00:00:00 [facility] Varicella 2001-11-28 Completed [facility] (varivax)(chicken 00:00:00 [place] [facility] DTAP 2001-11-28 Completed [facility] 00:00:00 [facility] MMR 2001-11-28 Completed [facility] 00:00:00 [facility] Polio (IPV/OPV) 2001-11-28 Completed [facility] 00:00:00 [facility] Varicella 2001-11-28 Completed [facility] [...] Branch DTAP 1999-11-18 Completed [facility] 00:00:00 [facility] HIB 4 Dose Schedule 1999-11-18 Completed [facility] rs[facility] 00:00:00 [facility] Hep B, Adol or Pedi 1999-11-18 Completed Unive rsity of Dosage 00:00:00 [facility] Polio (IPV/OPV) 1999-11-18 Completed [facility] 00:00:00 [facility] DTAP 1999-11-18 Completed [facility] 00:00:00 [facility] HIB 4 Dose Schedule 1999-11-18 Completed [facility] rs[facility] 00:00:00 [facility] Hep B, Adol or Pedi 1999-11-18 Completed Unive rsity of Dosage 00:00:00 [facility] Polio (IPV/OPV) 1999-11-18 Completed [facility] 00:00:00 [facility] DTAP 1999-11-18 Completed [facility] 00:00:00 [facility] HIB 4 Dose Schedule 1999-11-18 Completed [facility] rs[facility] of 00:00:00 [facility] Hep B, Adol or Pedi 1999-11-18 Completed Unive rsity of Dosage 00:00:00 [facility] Polio (IPV/OPV) 1999-11-18 Completed [facility] 00:00:00 [facility] DTAP 1999-11-18 Completed [facility] 00:00:00 [facility] HIB 4 Dose Schedule 1999-11-18 Completed [facility] 00:00:00 [facility] Hep B, Adol or Pedi 1999-11-18 Completed Unive rsity of Dosage 00:00:00 [facility] Polio (IPV/OPV) 1999-11-18 Completed [facility] 00:00:00 [facility] DTAP 1999-11-18 Completed [facility] 00:00:00 [facility] HIB 4 Dose Schedule 1999-11-18 Completed [facility] rs[facility] 00:00:00 [facility] Hep B, Adol or Pedi 1999-11-18 Completed Unive rsity of Dosage 00:00:00 [facility] Polio (IPV/OPV) 1999-11-18 Completed [facility] 00:00:00 [facility] DTAP 1999-11-18 Completed [facility] 00:00:00 [facility] HIB 4 Dose Schedule 1999-11-18 Completed [facility]ive rsity of 00:00:00 [facility] Hep B, Adol or Pedi 1999-11-18 Completed [facility]ive rsity of Dosage 00:00:00 [facility] Polio (IPV/OPV) 1999-11-18 Completed [facility] 00:00:00 [facility] DTAP 1999-11-18 Completed [facility] 00:00:00 [facility] HIB 4 Dose Schedule 1999-11-18 Completed [facility] rs[facility] 00:00:00 [facility] Hep B, Adol or Pedi 1999-11-18 Completed [facility]ive rsity of Dosage 00:00:00 [facility] Polio (IPV/OPV) 1999-11-18 Completed [facility] 00:00:00 [facility] DTAP 1999-11-18 Completed [facility] 00:00:00 [facility] HIB 4 Dose Schedule 1999-11-18 Completed [facility]ive rsity of 00:00:00 [facility] Hep B, Adol or Pedi 1999-11-18 Completed Unive rsity of Dosage 00:00:00 [facility] Polio (IPV/OPV) 1999-11-18 Completed [facility] 00:00:00 [facility] DTAP 1999-11-18 Completed [facility] 00:00:00 [facility] HIB 4 Dose Schedule 1999-11-18 Completed [facility] 00:00:00 [facility] Hep B, Adol or Pedi 1999-11-18 Completed Unive rsity of Dosage 00:00:00 [facility] Polio (IPV/OPV) 1999-11-18 Completed [facility] 00:00:00 [facility] DTAP 1999-11-18 Completed [facility] 00:00:00 [facility] HIB 4 Dose Schedule 1999-11-18 Completed [facility] of 00:00:00 [facility] Hep B, Adol or Pedi 1999-11-18 Completed [facility]ive rsity of Dosage 00:00:00 [facility] Polio (IPV/OPV) 1999-11-18 Completed [facility] 00:00:00 [facility] DTAP 1999-11-18 Completed [facility] 00:00:00 [facility] HIB 4 Dose Schedule 1999-11-18 Completed [facility] of 00:00:00 [facility] Hep B, Adol or Pedi 1999-11-18 Completed [facility]ive rsity of Dosage 00:00:00 [facility] Polio (IPV/OPV) 1999-11-18 Completed [facility] 00:00:00 [facility] DTAP 1999-11-18 Completed [facility] 00:00:00 [facility] HIB 4 Dose Schedule 1999-11-18 Completed [facility] 00:00:00 [facility] Hep B, Adol or Pedi 1999-11-18 Completed [facility]ive rs[facility] of Dosage 00:00:00 [facility] Polio (IPV/OPV) 1999-11-18 Completed [facility] 00:00:00 [facility] DTAP 1999-11-18 Completed [facility] 00:00:00 [facility] HIB 4 Dose Schedule 1999-11-18 Completed [facility] of 00:00:00 [facility] Hep B, Adol or Pedi 1999-11-18 Completed [facility]ive rs[facility] of Dosage 00:00:00 [facility] Polio (IPV/OPV) 1999-11-18 Completed [facility] 00:00:00 [facility] DTAP 1999-11-18 Completed [facility] 00:00:00 [facility] HIB 4 Dose Schedule 1999-11-18 Completed [facility] 00:00:00 [facility] Hep B, Adol or Pedi 1999-11-18 Completed [facility] of Dosage 00:00:00 [facility] Polio (IPV/OPV) 1999-11-18 Completed [facility] 00:00:00 [facility] DTAP 1999-11-18 Completed [facility] 00:00:00 [facility] HIB 4 Dose Schedule 1999-11-18 Completed [facility] 00:00:00 [facility] Hep B, Adol or Pedi 1999-11-18 Completed [facility]ive [facility] of Dosage 00:00:00 [facility] Polio (IPV/OPV) 1999-11-18 Completed [facility] 00:00:00 [facility] DTAP 1999-11-18 Completed [facility] 00:00:00 [facility] HIB 4 Dose Schedule 1999-11-18 Completed [facility] of 00:00:00 [facility] Hep B, Adol or Pedi 1999-11-18 Completed [facility] of Dosage 00:00:00 [facility] Polio (IPV/OPV) 1999-11-18 Completed [facility] 00:00:00 [facility] DTAP 1999-11-18 Completed [facility] 00:00:00 [facility] HIB 4 Dose Schedule 1999-11-18 Completed [facility] 00:00:00 [facility] Hep B, Adol or Pedi 1999-11-18 Completed [facility] of Dosage 00:00:00 [facility] Polio (IPV/OPV) 1999-11-18 Completed [facility] 00:00:00 [facility] DTAP 1999-11-18 Completed [facility] 00:00:00 [facility] HIB 4 Dose Schedule 1999-11-18 Completed [facility] 00:00:00 [facility] Hep B, Adol or Pedi 1999-11-18 Completed [facility]ive [facility] of Dosage 00:00:00 [facility] Polio (IPV/OPV) 1999-11-18 Completed [facility] 00:00:00 [facility] DTAP 1999-11-18 Completed [facility] 00:00:00 [facility] HIB 4 Dose Schedule 1999-11-18 Completed [facility] 00:00:00 [facility] Hep B, Adol or Pedi 1999-11-18 Completed [facility] Dosage 00:00:00 [facility] Polio (IPV/OPV) 1999-11-18 Completed [facility] 00:00:00 [facility] DTAP 1999-11-18 Completed [facility] 00:00:00 [facility] HIB 4 Dose Schedule 1999-11-18 Completed [facility] 00:00:00 [facility] Hep B, Adol or Pedi 1999-11-18 Completed [facility] Dosage 00:00:00 [facility] Polio (IPV/OPV) 1999-11-18 Completed [facility] 00:00:00 [facility] DTAP 1999-11-18 Completed [facility] 00:00:00 [facility] HIB 4 Dose Schedule 1999-11-18 Completed [facility] 00:00:00 [facility] Hep B, Adol or Pedi 1999-11-18 Completed [facility] Dosage 00:00:00 [facility] Polio (IPV/OPV) 1999-11-18 Completed [facility] 00:00:00 [facility] DTAP 1999-11-18 Completed [facility] 00:00:00 [facility] HIB 4 Dose Schedule 1999-11-18 Completed [facility] 00:00:00 [facility] Hep B, Adol or Pedi 1999-11-18 Completed [facility] Dosage 00:00:00 [facility] Polio (IPV/OPV) 1999-11-18 Completed [facility] 00:00:00 [facility] DTAP 1999-11-18 Completed [facility] 00:00:00 [facility] HIB 4 Dose Schedule 1999-11-18 Completed [facility] 00:00:00 [facility] Hep B, Adol or Pedi 1999-11-18 Completed [facility] Dosage 00:00:00 [facility] Polio (IPV/OPV) 1999-11-18 Completed [facility] 00:00:00 [facility] DTAP 1999-11-18 Completed [facility] 00:00:00 [facility] HIB 4 Dose Schedule 1999-11-18 Completed [facility] 00:00:00 [facility] Hep B, Adol or Pedi 1999-11-18 Completed [facility] Dosage 00:00:00 [facility] Polio (IPV/OPV) 1999-11-18 Completed [facility] 00:00:00 [facility] DTAP 1999-11-18 Completed [facility] 00:00:00 [facility] HIB 4 Dose Schedule 1999-11-18 Completed [facility] 00:00:00 [facility] Hep B, Adol or Pedi 1999-11-18 Completed [facility] Dosage 00:00:00 [facility] Polio (IPV/OPV) 1999-11-18 Completed [facility] 00:00:00 [facility] DTAP 1999-11-18 Completed [facility] 00:00:00 [facility] HIB 4 Dose Schedule 1999-11-18 Completed [facility] 00:00:00 [facility] Hep B, Adol or Pedi 1999-11-18 Completed [facility] Dosage 00:00:00 [facility] Polio (IPV/OPV) 1999-11-18 Completed [facility] 00:00:00 [facility] DTAP 1999-11-18 Completed [facility] 00:00:00 [facility] HIB 4 Dose Schedule 1999-11-18 Completed [facility] 00:00:00 [facility] Hep B, Adol or Pedi 1999-11-18 Completed [facility] Dosage 00:00:00 [facility] Polio (IPV/OPV) 1999-11-18 Completed [facility] 00:00:00 [facility] DTAP 1999-11-18 Completed [facility] 00:00:00 [facility] HIB 4 Dose Schedule 1999-11-18 Completed [facility] 00:00:00 [facility] Hep B, Adol or Pedi 1999-11-18 Completed [facility] Dosage 00:00:00 [facility] Polio (IPV/OPV) 1999-11-18 Completed [facility] 00:00:00 [facility] DTAP 1999-11-18 Completed [facility] 00:00:00 [facility] HIB 4 Dose Schedule 1999-11-18 Completed [facility] 00:00:00 [facility] Hep B, Adol or Pedi 1999-11-18 Completed [facility] Dosage 00:00:00 [facility] Polio (IPV/OPV) 1999-11-18 Completed [facility] 00:00:00 [facility] DTAP 1999-11-18 Completed [facility] 00:00:00 [facility] HIB 4 Dose Schedule 1999-11-18 Completed [facility] 00:00:00 [facility] Hep B, Adol or Pedi 1999-11-18 Completed [facility] Dosage 00:00:00 [facility] Polio (IPV/OPV) 1999-11-18 Completed [facility] 00:00:00 [facility] DTAP 1999-11-18 Completed [facility] 00:00:00 [facility] HIB 4 Dose Schedule 1999-11-18 Completed [facility] 00:00:00 [facility] Hep B, Adol or Pedi 1999-11-18 Completed [facility] Dosage 00:00:00 [facility] Polio (IPV/OPV) 1999-11-18 Completed [facility] 00:00:00 [facility] DTAP 1999-11-18 Completed [facility] 00:00:00 [facility] HIB 4 Dose Schedule 1999-11-18 Completed [facility] 00:00:00 [facility] Hep B, Adol or Pedi 1999-11-18 Completed [facility] Dosage 00:00:00 [facility] Polio (IPV/OPV) 1999-11-18 Completed [facility] 00:00:00 [facility] DTAP 1999-11-18 Completed [facility] 00:00:00 [facility] HIB 4 Dose Schedule 1999-11-18 Completed [facility] 00:00:00 [facility] Hep B, Adol or Pedi 1999-11-18 Completed [facility] Dosage 00:00:00 [facility] Polio (IPV/OPV) 1999-11-18 Completed [facility] 00:00:00 [facility] DTAP 1999-11-18 Completed [facility] 00:00:00 [facility] HIB 4 Dose Schedule 1999-11-18 Completed [facility] 00:00:00 [facility] Hep B, Adol or Pedi 1999-11-18 Completed [facility] Dosage 00:00:00 [facility] Polio (IPV/OPV) 1999-11-18 Completed [facility] 00:00:00 [facility] DTAP 1999-11-18 Completed [facility] 00:00:00 [facility] HIB 4 Dose Schedule 1999-11-18 Completed [facility] 00:00:00 [facility] Hep B, Adol or Pedi 1999-11-18 Completed [facility] Dosage 00:00:00 [facility] Polio (IPV/OPV) 1999-11-18 Completed [facility] 00:00:00 [facility] DTAP 1999-11-18 Completed [facility] 00:00:00 [facility] HIB 4 Dose Schedule 1999-11-18 Completed [facility] 00:00:00 [facility] Hep B, Adol or Pedi 1999-11-18 Completed [facility] Dosage 00:00:00 [facility] Polio (IPV/OPV) 1999-11-18 Completed [facility] 00:00:00 [facility] DTAP 1999-11-18 Completed [facility] 00:00:00 [facility] HIB 4 Dose Schedule 1999-11-18 Completed [facility] 00:00:00 [facility] Hep B, Adol or Pedi 1999-11-18 Completed [facility] Dosage 00:00:00 [facility] Polio (IPV/OPV) 1999-11-18 Completed [facility] 00:00:00 [facility] DTAP 1999-11-18 Completed [facility] 00:00:00 [facility] HIB 4 Dose Schedule 1999-11-18 Completed [facility] 00:00:00 [facility] Hep B, Adol or Pedi 1999-11-18 Completed [facility] Dosage 00:00:00 [facility] Polio (IPV/OPV) 1999-11-18 Completed [facility] 00:00:00 [facility] DTAP 1998 Completed [facility] 00:00:00 [facility] HIB 4 Dose Schedule 1998 Completed [facility] 00:00:00 [facility] Hep B, Adol or Pedi 1998 Completed [facility] Dosage 00:00:00 [facility] Polio (IPV/OPV) 1998 Completed [facility] 00:00:00 [facility] DTAP 1998 Completed [facility] 00:00:00 [facility] HIB 4 Dose Schedule 1998 Completed [facility] 00:00:00 [facility] Hep B, Adol or Pedi 1998 Completed [facility] Dosage 00:00:00 [facility] Polio (IPV/OPV) 1998 Completed [facility] 00:00:00 [facility] DTAP 1998 Completed [facility] 00:00:00 [facility] HIB 4 Dose Schedule 1998 Completed [facility] 00:00:00 [facility] Hep B, Adol or Pedi 1998 Completed [facility] Dosage 00:00:00 [facility] Polio (IPV/OPV) 1998 Completed [facility] 00:00:00 [facility] DTAP 1998 Completed [facility] 00:00:00 [facility] HIB 4 Dose Schedule 1998 Completed [facility] 00:00:00 [facility] Hep B, Adol or Pedi 1998 Completed [facility] Dosage 00:00:00 [facility] Polio (IPV/OPV) 1998 Completed [facility] 00:00:00 [facility] DTAP 1998 Completed [facility] 00:00:00 [facility] HIB 4 Dose Schedule 1998 Completed [facility] 00:00:00 [facility] Hep B, Adol or Pedi 1998 Completed [facility] Dosage 00:00:00 [facility] Polio (IPV/OPV) 1998 Completed [facility] 00:00:00 [facility] DTAP 1998 Completed [facility] 00:00:00 [facility] HIB 4 Dose Schedule 1998 Completed [facility] 00:00:00 [facility] Hep B, Adol or Pedi 1998 Completed [facility] Dosage 00:00:00 [facility] Polio (IPV/OPV) 1998 Completed [facility] 00:00:00 [facility] DTAP 1998 Completed [facility] 00:00:00 [facility] HIB 4 Dose Schedule 1998 Completed [facility] 00:00:00 [facility] Hep B, Adol or Pedi 1998 Completed [facility] Dosage 00:00:00 [facility] Polio (IPV/OPV) 1998 Completed [facility] 00:00:00 [facility] DTAP 1998 Completed [facility] 00:00:00 [facility] HIB 4 Dose Schedule 1998 Completed [facility] 00:00:00 [facility] Hep B, Adol or Pedi 1998 Completed [facility] Dosage 00:00:00 [facility] Polio (IPV/OPV) 1998 Completed [facility] 00:00:00 [facility] DTAP 1998 Completed [facility] 00:00:00 [facility] HIB 4 Dose Schedule 1998 Completed [facility] 00:00:00 [facility] Hep B, Adol or Pedi 1998 Completed [facility] Dosage 00:00:00 [facility] Polio (IPV/OPV) 1998 Completed [facility] 00:00:00 [facility] DTAP 1998 Completed [facility] 00:00:00 [facility] HIB 4 Dose Schedule 1998 Completed [facility] 00:00:00 [facility] Hep B, Adol or Pedi 1998 Completed [facility] Dosage 00:00:00 [facility] Polio (IPV/OPV) 1998 Completed [facility] 00:00:00 [facility] DTAP 1998 Completed [facility] 00:00:00 [facility] HIB 4 Dose Schedule 1998 Completed [facility] 00:00:00 [facility] Hep B, Adol or Pedi 1998 Completed [facility] Dosage 00:00:00 [facility] Polio (IPV/OPV) 1998 Completed [facility] 00:00:00 [facility] DTAP 1998 Completed [facility] 00:00:00 [facility] HIB 4 Dose Schedule 1998 Completed [facility] 00:00:00 [facility] Hep B, Adol or Pedi 1998 Completed [facility] Dosage 00:00:00 [facility] Polio (IPV/OPV) 1998 Completed [facility] 00:00:00 [facility] DTAP 1998 Completed [facility] 00:00:00 [facility] HIB 4 Dose Schedule 1998 Completed [facility] 00:00:00 [facility] Hep B, Adol or Pedi 1998 Completed [facility] Dosage 00:00:00 [facility] Polio (IPV/OPV) 1998 Completed [facility] 00:00:00 [facility] DTAP 1998 Completed [facility] 00:00:00 [facility] HIB 4 Dose Schedule 1998 Completed [facility] 00:00:00 [facility] Hep B, Adol or Pedi 1998 Completed [facility] Dosage 00:00:00 [facility] Polio (IPV/OPV) 1998 Completed [facility] 00:00:00 [facility] DTAP 1998 Completed [facility] 00:00:00 [facility] HIB 4 Dose Schedule 1998 Completed [facility] 00:00:00 [facility] Hep B, Adol or Pedi 1998 Completed [facility] Dosage 00:00:00 [facility] Polio (IPV/OPV) 1998 Completed [facility] 00:00:00 [facility] DTAP 1998 Completed [facility] 00:00:00 [facility] HIB 4 Dose Schedule 1998 Completed [facility] 00:00:00 [facility] Hep B, Adol or Pedi 1998 Completed [facility] Dosage 00:00:00 [facility] Polio (IPV/OPV) 1998 Completed [facility] 00:00:00 [facility] DTAP 1998 Completed [facility] 00:00:00 [facility] HIB 4 Dose Schedule 1998 Completed [facility] 00:00:00 [facility] Hep B, Adol or Pedi 1998 Completed [facility] Dosage 00:00:00 [facility] Polio (IPV/OPV) 1998 Completed [facility] 00:00:00 [facility] DTAP 1998 Completed [facility] 00:00:00 [facility] HIB 4 Dose Schedule 1998 Completed [facility] 00:00:00 [facility] Hep B, Adol or Pedi 1998 Completed [facility] Dosage 00:00:00 [facility] Polio (IPV/OPV) 1998 Completed [facility] 00:00:00 [facility] DTAP 1998 Completed [facility] 00:00:00 [facility] HIB 4 Dose Schedule 1998 Completed [facility] 00:00:00 [facility] Hep B, Adol or Pedi 1998 Completed [facility] Dosage 00:00:00 [facility] Polio (IPV/OPV) 1998 Completed [facility] 00:00:00 [facility] DTAP 1998 Completed [facility] 00:00:00 [facility] HIB 4 Dose Schedule 1998 Completed [facility] 00:00:00 [facility] Hep B, Adol or Pedi 1998 Completed [facility] Dosage 00:00:00 [facility] Polio (IPV/OPV) 1998 Completed [facility] 00:00:00 [facility] DTAP 1998 Completed [facility] 00:00:00 [facility] HIB 4 Dose Schedule 1998 Completed [facility] 00:00:00 [facility] Hep B, Adol or Pedi 1998 Completed [facility] Dosage 00:00:00 [facility] Polio (IPV/OPV) 1998 Completed [facility] 00:00:00 [facility] DTAP 1998 Completed [facility] 00:00:00 [facility] HIB 4 Dose Schedule 1998 Completed [facility] 00:00:00 [facility] Hep B, Adol or Pedi 1998 Completed [facility] Dosage 00:00:00 [facility] Polio (IPV/OPV) 1998 Completed [facility] 00:00:00 [facility] DTAP 1998 Completed [facility] 00:00:00 [facility] HIB 4 Dose Schedule 1998 Completed [facility] 00:00:00 [facility] Hep B, Adol or Pedi 1998 Completed [facility] Dosage 00:00:00 [facility] Polio (IPV/OPV) 1998 Completed [facility] 00:00:00 [facility] DTAP 1998 Completed [facility] 00:00:00 [facility] HIB 4 Dose Schedule 1998 Completed [facility] 00:00:00 [facility] Hep B, Adol or Pedi 1998 Completed [facility] Dosage 00:00:00 [facility] Polio (IPV/OPV) 1998 Completed [facility] 00:00:00 [facility] DTAP 1998 Completed [facility] 00:00:00 [facility] HIB 4 Dose Schedule 1998 Completed [facility] 00:00:00 [facility] Hep B, Adol or Pedi 1998 Completed [facility] Dosage 00:00:00 [facility] Polio (IPV/OPV) 1998 Completed [facility] 00:00:00 [facility] DTAP 1998 Completed [facility] 00:00:00 [facility] HIB 4 Dose Schedule 1998 Completed [facility] 00:00:00 [facility] Hep B, Adol or Pedi 1998 Completed [facility] Dosage 00:00:00 [facility] Polio (IPV/OPV) 1998 Completed [facility] 00:00:00 [facility] DTAP 1998 Completed [facility] 00:00:00 [facility] HIB 4 Dose Schedule 1998 Completed [facility] 00:00:00 [facility] Hep B, Adol or Pedi 1998 Completed [facility] Dosage 00:00:00 [facility] Polio (IPV/OPV) 1998 Completed [facility] 00:00:00 [facility] DTAP 1998 Completed [facility] 00:00:00 [facility] HIB 4 Dose Schedule 1998 Completed [facility] 00:00:00 [facility] Hep B, Adol or Pedi 1998 Completed [facility] Dosage 00:00:00 [facility] Polio (IPV/OPV) 1998 Completed [facility] 00:00:00 [facility] DTAP 1998 Completed [facility] 00:00:00 [facility] HIB 4 Dose Schedule 1998 Completed [facility] 00:00:00 [facility] Hep B, Adol or Pedi 1998 Completed [facility] Dosage 00:00:00 [facility] Polio (IPV/OPV) 1998 Completed [facility] 00:00:00 [facility] DTAP 1998 Completed [facility] 00:00:00 [facility] HIB 4 Dose Schedule 1998 Completed [facility] 00:00:00 [facility] Hep B, Adol or Pedi 1998 Completed [facility] Dosage 00:00:00 [facility] Polio (IPV/OPV) 1998 Completed [facility] 00:00:00 [facility] DTAP 1998 Completed [facility] 00:00:00 [facility] HIB 4 Dose Schedule 1998 Completed [facility] 00:00:00 [facility] Hep B, Adol or Pedi 1998 Completed [facility] Dosage 00:00:00 [facility] Polio (IPV/OPV) 1998 Completed [facility] 00:00:00 [facility] DTAP 1998 Completed [facility] 00:00:00 [facility] HIB 4 Dose Schedule 1998 Completed [facility] 00:00:00 [facility] Hep B, Adol or Pedi 1998 Completed [facility] Dosage 00:00:00 [facility] Polio (IPV/OPV) 1998 Completed [facility] 00:00:00 [facility] DTAP 1998 Completed [facility] 00:00:00 [facility] HIB 4 Dose Schedule 1998 Completed [facility] 00:00:00 [facility] Hep B, Adol or Pedi 1998 Completed [facility] Dosage 00:00:00 [facility] Polio (IPV/OPV) 1998 Completed [facility] 00:00:00 [facility] DTAP 1998 Completed [facility] 00:00:00 [facility] HIB 4 Dose Schedule 1998 Completed [facility] 00:00:00 [facility] Hep B, Adol or Pedi 1998 Completed [facility] Dosage 00:00:00 [facility] Polio (IPV/OPV) 1998 Completed [facility] 00:00:00 [facility] DTAP 1998 Completed [facility] 00:00:00 [facility] HIB 4 Dose Schedule 1998 Completed [facility] 00:00:00 [facility] Hep B, Adol or Pedi 1998 Completed [facility] Dosage 00:00:00 [facility] Polio (IPV/OPV) 1998 Completed [facility] 00:00:00 [facility] DTAP 1998 Completed [facility] 00:00:00 [facility] HIB 4 Dose Schedule 1998 Completed [facility] 00:00:00 [facility] Hep B, Adol or Pedi 1998 Completed [facility] Dosage 00:00:00 [facility] Polio (IPV/OPV) 1998 Completed [facility] 00:00:00 [facility] DTAP 1998 Completed [facility] 00:00:00 [facility] HIB 4 Dose Schedule 1998 Completed [facility] 00:00:00 [facility] Hep B, Adol or Pedi 1998 Completed [facility] Dosage 00:00:00 [facility] Polio (IPV/OPV) 1998 Completed [facility] 00:00:00 [facility] DTAP 1998 Completed [facility] 00:00:00 [facility] HIB 4 Dose Schedule 1998 Completed [facility] 00:00:00 [facility] Hep B, Adol or Pedi 1998 Completed [facility] Dosage 00:00:00 [facility] Polio (IPV/OPV) 1998 Completed [facility] 00:00:00 [facility] Hep B, [...] 1998 Completed [facility] Dosage 00:00:00 [facility] Hep B, Adol or Pedi 1998 Completed [facility] Dosage 00:00:00 [facility] Hep B, Adol or Pedi 1998 Completed [facility] Dosage 00:00:00 [facility] Hep B, Adol or Pedi 1998 Completed [facility] Dosage 00:00:00 [facility] Hep B, Adol or Pedi 1998 Completed [facility] Dosage 00:00:00 [facility] Hep B, Adol or Pedi 1998 Completed [facility] Dosage 00:00:00 [facility] Hep B, Adol or Pedi 1998 Completed [facility] Dosage 00:00:00 [facility] Hep B, Adol or Pedi 1998 Completed [facility] Dosage 00:00:00 [facility] Hep B, Adol or Pedi 1998 Completed [facility] Dosage 00:00:00 [facility] Hep B, Adol or Pedi 1998 Completed [facility] Dosage 00:00:00 [facility] Hep B, Adol or Pedi 1998 Completed [facility] Dosage 00:00:00 [facility] Hep B, Adol or Pedi 1998 Completed [facility] Dosage 00:00:00 [facility] Hep B, Adol or Pedi 1998 Completed [facility] Dosage 00:00:00 [facility] Hep B, Adol or Pedi 1998 Completed [facility] Dosage 00:00:00 [facility] Hep B, Adol or Pedi 1998 Completed [facility] Dosage 00:00:00 [facility] Hep B, Adol or Pedi 1998 Completed [facility] Dosage 00:00:00 [facility] Hep B, Adol or Pedi 1998 Completed [facility] Dosage 00:00:00 [facility] Vital Signs Vital Name Observation Time Observation Value Comments Source Systolic blood 2022-06-25 21:34:00 130 mm[Hg] [facility] of pressure [facility] Diastolic blood 2022-06-25 21:34:00 90 mm[Hg] [facility] pressure [facility] Heart rate 2022-06-25 21:34:00 88 /min [facility] Body temperature 2022-06-25 21:34:00 36.83 Delfina [facility] Respiratory rate 2022-06-25 21:34:00 18 /min [facility] of [facility] Body height 2022-06-25 21:34:00 157.5 cm [facility] Body weight 2022-06-25 21:34:00 86.637 kg [facility] BMI 2022-06-25 21:34:00 34.93 kg/m2 [facility] Systolic blood 2022-06-22 23:53:00 118 mm[Hg] [facility] pressure [facility] Diastolic blood 2022-06-22 23:53:00 89 mm[Hg] [facility] of pressure [facility] Heart rate 2022-06-22 23:53:00 74 /min [facility] Respiratory rate 2022-06-22 23:53:00 16 /min [facility] of [facility] Oxygen saturation in 2022-06-22 23:53:00 98 /min [facility] Arterial blood by [facility] Pulse oximetry [place] Body temperature 2022-06-22 18:35:00 37.22 Delfina [facility] Body height 2022-06-22 18:35:00 157.5 cm [facility] Body weight 2022-06-22 18:35:00 87.091 kg [facility] BMI 2022-06-22 18:35:00 35.12 kg/m2 [facility] Systolic blood 2022-06-22 18:17:00 137 mm[Hg] [facility] pressure [facility] Diastolic blood 2022-06-22 18:17:00 102 mm[Hg] [facility] pressure [facility] Heart rate 2022-06-22 18:15:00 80 /min [facility] Body temperature 2022-06-22 18:15:00 37.11 Delfina [facility] Respiratory rate 2022-06-22 18:15:00 16 /min [facility] Body height 2022-06-22 18:15:00 157.5 cm [facility] Body weight 2022-06-22 18:15:00 87.363 kg [facility] BMI 2022-06-22 18:15:00 35.23 kg/m2 [facility]i ty [facility] Oxygen saturation in 2022-06-22 18:15:00 97 /min University of Arterial blood by [facility] Pulse oximetry Branch Systolic blood 2022-05-17 22:01:00 123 mm[Hg] Univer sity of pressure [facility] Diastolic blood 2022-05-17 22:01:00 85 mm[Hg] Unive rsity of pressure [facility] Heart rate 2022-05-17 22:01:00 70 /min [facility] Body temperature 2022-05-17 22:01:00 36.78 Delfina Univ ersity of [facility] Respiratory rate 2022-05-17 22:01:00 18 /min Univ [facility] Body height 2022-05-17 22:01:00 157.5 cm [facility] Body weight 2022-05-17 22:01:00 89.359 kg [facility] BMI 2022-05-17 22:01:00 36.03 kg/m2 [facility] Systolic blood 2022-05-11 21:59:00 123 mm[Hg] Univer sity of pressure [facility] Diastolic blood 2022-05-11 21:59:00 88 mm[Hg] Unive rsity of [facility] Heart rate 2022-05-11 21:59:00 69 /min [facility] Body temperature 2022-05-11 21:59:00 37.44 Delfina Univ ersity of [facility] Respiratory rate 2022-05-11 21:59:00 16 /min Univ ersity of [facility] Body height 2022-05-11 21:59:00 157.5 cm [facility] Body weight 2022-05-11 21:59:00 88.406 kg [facility] BMI 2022-05-11 21:59:00 35.65 kg/m2 [facility] Oxygen saturation in 2022-05-11 21:59:00 99 /min [facility] Pulse oximetry Branch Systolic blood 2022-03-25 18:55:00 125 mm[Hg] Univer sity of [facility] Diastolic blood 2022-03-25 18:55:00 90 mm[Hg] Unive rsity of [facility] Heart rate 2022-03-25 18:55:00 74 /min [facility] Body temperature 2022-03-25 18:55:00 37.11 Delfina [facility] Respiratory rate 2022-03-25 18:55:00 18 /min Univ [facility] Body height 2022-03-25 18:55:00 157.5 cm [facility] Body weight 2022-03-25 18:55:00 88.179 kg [facility] BMI 2022-03-25 18:55:00 35.56 kg/m2 [facility] Oxygen saturation in 2022-03-25 18:55:00 98 /min [facility] Pulse oximetry Branch Systolic blood 2022-02-26 19:18:00 134 mm[Hg] Univer [facility]ity of [facility] Diastolic blood 2022-02-26 19:18:00 87 mm[Hg] Unive rsity of [facility] Heart rate 2022-02-26 19:18:00 82 /min [facility] Body temperature 2022-02-26 19:18:00 37.11 Delfina Univ [facility] Respiratory rate 2022-02-26 19:18:00 16 /min Univ [facility] Body height 2022-02-26 19:18:00 160 cm [facility] Body weight 2022-02-26 19:18:00 90.266 kg [facility] BMI 2022-02-26 19:18:00 35.25 kg/m2 [facility] Oxygen saturation in 2022-02-26 19:18:00 98 /min [facility] Pulse oximetry Branch Systolic blood 2022-02-22 22:48:00 134 mm[Hg] Univer sity of [facility] Diastolic blood 2022-02-22 22:48:00 84 mm[Hg] Unive rsity of [facility] Heart rate 2022-02-22 22:48:00 88 /min [facility] Body temperature 2022-02-22 22:48:00 37.22 Delfina Univ [facility] Respiratory rate 2022-02-22 22:48:00 16 /min Univ [facility] Body height 2022-02-22 22:48:00 160 cm [facility] Body weight 2022-02-22 22:48:00 90.311 kg [facility] BMI 2022-02-22 22:48:00 35.27 kg/m2 [facility] Oxygen saturation in 2022-02-22 22:48:00 98 /min University of Arterial blood by [facility] Pulse oximetry Branch Systolic blood 2022-01-13 19:07:00 129 mm[Hg] Univer sity of [facility] Diastolic blood 2022-01-13 19:07:00 89 mm[Hg] Unive rsity of pressure [facility] Heart rate 2022-01-13 19:07:00 80 /min [facility] Body temperature 2022-01-13 19:07:00 36.83 Delfina Univ [facility] Respiratory rate 2022-01-13 19:07:00 18 /min Univ [facility] Body height 2022-01-13 19:07:00 157.5 cm [facility] Body weight 2022-01-13 19:07:00 88.996 kg [facility] BMI 2022-01-13 19:07:00 35.89 kg/m2 [facility] Systolic blood 2021-10-28 15:36:00 121 mm[Hg] Univer sity of [facility] Diastolic blood 2021-10-28 15:36:00 81 mm[Hg] Unive rsity of pressure [facility] Heart rate 2021-10-28 15:35:00 73 /min [facility] Body temperature 2021-10-28 15:35:00 37.22 [facility] Body weight 2021-10-28 15:35:00 86.183 kg [facility] BMI 2021-10-28 15:35:00 34.74 kg/m2 [facility] Procedures Procedure Date / Time Performing Clinician Source Performed POCT URINALYSIS W/O 2022-06-25 00:00:00 Chacha Gomez [facility] SPECIFIC GRAVITY [facility] CT ABDOMEN PELVIS W 2022-06-22 21:03:00 Elijah Hernandez [facility] CONTRAST [facility] LIPASE 2022-06-22 19:30:00 David [facility] COMP. METABOLIC PANEL 2022-06-22 19:30:00 Elijah Hernandez [facility] ([id number]) [facility] CBC WITH DIFF 2022-06-22 19:30:00 David [facility] LACTIC ACID WHOLE BLOOD 2022-06-22 19:29:00 Elijah Hernandez [facility] POCT TEST 2022-06-22 19:20:00 Elijah Hernandez [facility] URINALYSIS 2022-06-22 19:17:00 David [facility] CONSENT/REFUSAL FOR 2022-06-22 18:28:14 Doctor Unassigned, No [facility] DIAGNOSIS AND TREATMENT [facility] CONSENT/REFUSAL FOR 2022-05-21 21:51:33 Doctor Unassigned, No [facility] DIAGNOSIS AND TREATMENT [facility] PATIENT QUESTIONNAIRE 2022-05-19 06:01:00 Doctor Unassigned, No [facility] POCT URINALYSIS W/O 2022-05-17 00:00:00 Zully Holt [facility] POCT TEST 2022-03-25 20:00:00 Mara Cuevas [facility] URINE CULTURE 2022-03-25 19:22:00 Mara Cuevas [facility] GC, CHLAMYDIA, & M. 2022-03-25 19:22:00 Mara Cuevas [facility] GENITALIUM AMPLIFIED Medical [facility] ASSAY GALV ONLY - VAGINAL 2022-03-25 19:22:00 Mara Cuevas [facility] PATHOGENS BY NUCLEIC [facility] nc ACID TESTING POCT URINALYSIS 2022-03-25 19:02:00 Faith [facility] GC & CHLAMYDIA AMPLIFIED 2022-02-22 23:07:00 [facility] GALV ONLY - VAGINAL 2022-02-22 23:07:00 Rosa Erazo [facility] PATHOGENS BY NUCLEIC [facility] nc ACID TESTING POCT URINALYSIS 2022-02-22 22:54:00 [facility] 2022-02-22 22:49:00 [facility] AUTHORIZATION FOR 2022-01-19 05:01:00 Doctor Unassigned, No [facility] RE[facility] OF PHI Name [facility] Branch AUTHORIZATION FOR 2021-12-22 05:01:00 Doctor Unassigned, No Univ [facility] RELEASE OF PHI Name Medical Branch AUTHORIZATION FOR 2021-12-14 05:01:00 Doctor Unassigned, No [facility] RELEASE OF PHI Name Medical Branch Encounters Start End Encounter Admission Attending Care Care Encounter Source Date/Time Date/Time Type Type Clinicians Facility Department ID 2022-08-06 2022-08-06 Outpatient R JASON [facility] [id number] Univers 16:30:00 16:30:00 CHACHA [facility] 2022-07-08 2022-07-08 Outpatient R YANET [facility] [id number] Univers 13:30:00 13:30:00 ZULLY [facility] 2022-07-02 2022-07-02 Outpatient R JEANNETTE PATEL [facility] U TMB [id number] Univers 15:00:00 15:00:00 JEANNETTE PATEL [facility] 2022-06-25 2022-06-25 Outpatient R JASON [facility] [id number] Univers 15:30:00 16:28:47 CHACHA [facility] 2022-06-25 2022-06-25 [facility] 1.2.840.114 [id number] Univers 15:30:00 16:28:47 Visit Chacha MARLA 350.1.13.10 i ty of [place] 4.2.7.2.[address] [facility] [id number] Mi gilberto BURGER 098 [facility] 2022-06-22 2022-06-22 Emergency [facility] [id number] Univers 12:41:00 20:34:00 ELIJAH itolivier [facility] 2022-06-22 2022-06-22 Emergency [facility] 1.2.623.209 [id number] Univers 12:41:00 20:34:00 Elijah GUTIÉRREZ 350.1.13.10 i ty of [place] 4.2.7.2.686 [facility] [id number] [facility] [address] [place] 2022-06-22 2022-06-22 Nurse Nurse, [facility] 1.2.840.114 [id number] Univers 12:15:00 12:41:54 Visit Unknown, Attending HEALTH 350.1.13.10 ity of Steffany Zapata 4.2.7.2.686 [facility] [id number] Mi gilberto YOUNGEY 370 [facility] OFFICE [facility] 2022-06-22 2022-06-22 Outpatient R SAWYER, [facility] [id number] Univers 12:20:00 12:20:00 ATTENDING esperanza [facility] 2022-06-22 2022-06-22 Outpatient R BENNY [facility] [id number] Univers 12:15:00 12:15:00 STEFFANY mata [facility] 2022-06-22 2022-06-22 Orders Doctor PHILL 1.2.840.114 [id number] Univers 00:00:00 00:00:00 Only Unassigned, COLEMAN 350.1.13.10 ity of [place] [facility] 4.2.7.2.686 [facility] [id number] [facility] 009 Branch 2022-06-03 2022-06-03 Outpatient R YANET [facility] [id number] Univers 14:00:00 14:00:00 ZULLY mata [facility] 2022-05-24 2022-05-24 Telephone [facility] 1.2.840.114 [id number] Univers 00:00:00 00:00:00 Zully GUTIÉRREZ 350.1.13.10 i [place] [id number] [address] 2022-05-21 2022-05-21 [facility] [id number] Univers 15:51:32 23:59:00 ZULLY itolivier [facility] 2022-05-21 2022-05-21 [facility] 1.2.840.114 [id number] Univers 15:45:00 23:59:00 Encounter Zully GUTIÉRREZ 350.1.13.10 it[place].2.7.2.[place] [id number] [facility] [address] [place] 2022-05-19 2022-05-19 [facility] [id number] Univers 10:00:00 11:06:31 CHACHA itolivier [facility] 2022-05-19 2022-05-19 Telephone [facility] 1.2.840.114 [id number] Univers 00:00:00 00:00:00 Zully GUTIÉRREZ 350.1.13.10 i ty [place] 4.2.7.2.[place] [id number] [address] 2022-05-19 2022-05-19 Orders Doctor PHILL 1.2.840.114 [id number] Univers 00:00:00 00:00:00 Only Unassigned, COLEMAN 350.1.13.10 ity of [place] [facility] 4.2.7.2.686 [place] as [id number] [facility] [address] [place] 2022-05-18 2022-05-18 Case KASIA Holt 1.2.738.544 [id number] Univers 00:00:00 00:00:00 Management Zully PEDIATRIC 350.1.13.10 [place] [id number] [facility] PRIMARY 370 [address] CARE [facility] 2022-05-17 2022-05-17 Outpatient R YANET [facility] [id number] Univers 16:00:00 16:38:57 ZULLY ity [facility] 2022-05-17 2022-05-17 Office Yanet NCPATTIE 1.2.742.650 [id number] Univers 16:00:00 16:38:57 Visit Zully GUTIÉRREZ 350.1.13.10 i ty of [facility] 4.2.7.2.686 [place] [id number] Mi dical NAL [address] [place] [address] 2022-05-11 2022-05-11 Office Josey Koch [facility] 1.2.840.114 [id number] Univers 16:30:00 16:45:00 Visit HEALTH 350.1.13.10 it y [place]2.7.2.686 [place] [id number] [address] OFFICE BUILDING 2022-05-11 2022-05-11 Outpatient R JOSEY KOCH [facility] [id number] Univers 16:30:00 16:30:00 ity [facility] 2022-05-05 2022-05-05 Telephone Henrietta Santos [facility] 1.2.840.114 [id number] Univers 00:00:00 00:00:00 Cam MARLA 350.1.13.10 i ty of [facility] 4.2.7.2.686 [place] [id number] Mi dic[address] 2022-04-27 2022-04-27 Outpatient R JOSEY KOCH [facility] [id number] Univers 14:00:00 14:00:00 ity of [facility] 2022-04-06 2022-04-06 Outpatient JOSEY AWAD [facility] [id number] Univers 08:45:00 08:45:00 ity [facility] 2022-03-28 2022-03-28 Patient Darriuskentrell [facility] 1.2.840.114 [id number] Univers 00:00:00 00:00:00 Secure Msg [facility] 350.1.13.10 ity of [place] 4.2.7.2.686 Golden as VLADIMIR?BLEA [phone] Mi gilberto GO [address] MEDICAL OFFICE [facility] 2022-03-25 2022-03-25 Shirring Tender Lab, Ang - Db [facility] 1.2.840.1 [id number] Univers 13:30:00 13:45:00 Visit Mara Cuevas [facility] 350.1.13.10 ity [facility] 4.2.7.2.686 [place] as VLADIMIR?BLEA [id number] Mi gilberto GO [address] MEDICAL OFFICE [facility] 2022-03-25 2022-03-25 Outpatient R FAITH, [facility] [id number] Univers 12:40:00 13:23:47 [facility] ity [facility] 2022-03-25 2022-03-25 Urgent Ebdckentrell [facility] 1.2.840.114 [id number] Univers 12:40:00 13:23:47 Care Unknown, Attending HEALTH 350.1.13.10 ity [facility] 4.2.7.2.686 [place] as VLADIMIR?BLEA [id number] Mi gilberto GO [address] MEDICAL OFFICE [facility] 2022-03-25 2022-03-25 Patient Darriuskentrell [facility] 1.2.840.114 [id number] Univers 00:00:00 00:00:00 [facility] 350.1.13.10 [facility] 4.2.7.2.686 [place] as VLADIMIR?BLEA [id number] Mi gilberto GO [address] MEDICAL OFFICE [facility] 2022-03-24 2022-03-24 Outpatient R UNKNOWN, [facility] [id number] Univers 17:20:00 17:20:00 ATTENDING ity of [facility] 2022-02-26 2022-02-26 Outpatient R JEEVAN [facility] [id number] Univers 13:00:00 13:40:20 LORENZA deras [facility] 2022-02-26 2022-02-26 Urgent Lorenza Chew [facility] 1.2.840 .114 [id number] Univers 13:00:00 13:40:20 Care Unknown, [facility] HEALTH 350.1.13.10 ity of [place] 4.2.7.2.686 [place] as VLADIMIR?BLEA [id number] [address] OFFICE [facility] 2022-02-22 2022-02-22 Outpatient R KACEY [facility] [id number] Univers 16:40:00 17:15:39 ROSA ity o f [facility] 2022-02-22 2022-02-22 Urgent Rosa Erazo [facility] 1.2.840. 114 [id number] Univers 16:40:00 17:15:39 Care Unknown, Attending HEALTH 350.1.13.10 ity of [place] 4.2.7.2.686 Golden as VLADIMIR?BLEA [id number] [address] OFFICE [facility] 2022-01-19 2022-01-19 Orders Doctor PHILL 1.2.840.114 [id number] Univers 00:00:00 00:00:00 Only Unassigned, COLEMAN 350.1.13.10 ity of [place] [facility] 4.2.7.2.686 [place] as [id number] [address] 2022-01-13 2022-01-13 Shirring Tender 2, Adc Lab [facility] 1.2.840.114 [id number] Univers 15:00:00 15:15:00 Visit Henrietta Santos 350.1.13.10 ity of [facility] 4.2.7.2.686 [place] [id number] Mi dicdaniel [facility] 353 [facility] 2022-01-13 2022-01-13 Office Henrietta Santos [facility] 1.2.779.593 [id number] Univers 14:30:00 14:30:00 Visit Edis GUTIÉRREZ 350.1.13.10 i ty of [facility] 4.2.7.2.686 [place] [id number] Mi dical NAL 134 [facility] 2022-01-13 2022-01-13 Outpatient R HENRIETTA SANTOS [facility] [id number] Univers 14:30:00 14:19:51 ity of [facility] 2022-01-05 2022-01-05 Outpatient R TAD [facility] [id number] Univers 09:10:00 09:10:00 LOKESH mata of [facility] 2021-12-28 2021-12-28 Outpatient Davion PARKER [facility] [id number] Univers 15:00:00 15:00:00 AMANDA ity o f [facility] 2021-12-28 2021-12-28 Outpatient Davion PARKER [facility] [id number] Univers 15:00:00 15:00:00 CARROLA ity o f [facility] 2021-12-28 2021-12-28 Outpatient R ELENA [facility] [id number] Univers 15:00:00 15:00:00 CARROLA esperanza o f [facility] 2021-12-28 2021-12-28 Outpatient Davion PARKER [facility] [id number] Univers 15:00:00 15:00:00 AMANDA mata o [facility] 2021-12-22 2021-12-22 Orders Doctor PHILL 1.2.840.114 [id number] Univers 00:00:00 00:00:00 Only Unassigned, COLEMAN 350.1.13.10 ity of [place] [facility] 4.2.7.2.686 Golden as [id number] [facility] [address] 2021-12-14 2021-12-14 Orders Doctor PHILL 1.2.840.114 [id number] Univers 00:00:00 00:00:00 Only Unassigned, COLEMAN 350.1.13.10 ity of [place] [facility] 4.2.7.2.686 Golden as [id number] [facility] [address] 2021-12-11 2021-12-11 Telephone Tad [facility] 1.2.091.915 [id number] Univers 00:00:00 00:00:00 Lokesh ESCOBAR 350.1.13.10 ity of [place] 4.2.7.2.686 [place] AT [id number] Mi geepr JOSE[address] 2021-10-28 2021-10-28 Office Henrietta Santos [facility] 1.2.597.924 [id number] Univers 10:00:00 11:33:53 Visit Edis GUTIÉRREZ 350.1.13.10 i ty of [place] 4.2.7.2.686 [place] [id number] Mi dical NAL 134 [facility] 2021-10-28 2021-10-28 Outpatient R HENRIETTA SANTOS [facility] [id number] Univers 10:00:00 11:33:53 ity [facility] 2021-10-28 2021-10-28 Outpatient R TOM HENRIETTA [facility] [id number] Univers 10:00:00 10:00:00 ity [facility] 2021-10-21 2021-10-21 Outpatient R TOM HENRIETTA [facility] [id number] Univers 15:30:00 [facility] 2021-10-12 2021-10-12 Outpatient R TAD [facility] [id number] Univers 13:50:00 13:50:00 LOKESH [facility] 2021-10-09 2021-10-09 Imm/Inj Vaccine, [facility] 1.2.840.114 [id number] Univers 15:00:00 15:04:02 Visit Moe Marie 350.1.13 .10 ity of [facility] 4.2.7.2.686 [place] [phone] Mi dical NAL 044 [facility] 2021-10-09 2021-10-09 Outpatient R FRANK [facility] [id number] Univers 15:00:00 15:00:00 MOE olivier [facility] 2021-10-09 2021-10-09 Outpatient R FRANK [facility] [id number] Univers 15:00:00 15:00:00 MOE [facility] 2021-10-08 2021-10-08 Office Tom [facility] [id number] Univers 16:00:00 16:57:27 Visit Edis GUTIÉRREZ 350.1.13.10 i ty of [facility] 4.2.7.2.686 [place] [id number] Mi dical NAL 134 [facility] 2021-10-08 2021-10-08 Outpatient R SANTOS HENRIETTA [facility] [id number] Univers 16:00:00 16:57:27 ity of [facility] 2021-10-08 2021-10-08 Outpatient R HENRIETTA SANTOS [facility] [id number] Univers 08:15:00 08:15:00 ity of [facility] 2021-10-08 2021-10-08 Patient Laura [facility] 1.2.840.114 [id number] Univers 00:00:00 00:00:00 Secure Msg Rachel ALVINATON 350.1.13.10 ity of [facility] 4.2.7.2.686 [place] [id number] Mi dical NAL [address] [place] [address] 2021-10-07 2021-10-07 Outpatient R HENRIETTA SANTOS [facility] [id number] Univers 10:30:00 11:44:37 ity of [facility] 2021-10-07 2021-10-07 Office Santos [facility] [id number] Univers 10:30:00 11:44:37 Visit Cam MARLA 350.1.13.10 i ty of [place] 4.2.7.2.686 [place] [id number] Mi dical NAL [address] [place] [address] 2021-10-07 2021-10-07 Telephone TomHaydenen [facility] 1.2.840.114 [id number] Univers 00:00:00 00:00:00 Cam [place] 350.1.13.10 i ty of [place] 4.2.7.2.686 [place] [id number] Mi dical NAL [address] [place] [address] 2021-10-07 2021-10-07 Patient Laura [facility] 1.2.840.114 [id number] Univers 00:00:00 00:00:00 Secure Msg Rachel [place] 350.1.13.10 ity of [facility] 4.2.7.2.686 [place] [id number] Mi dical NAL [address] [place] [address] 2021-10-06 2021-10-06 Outpatient R TOM HENRIETTA [facility] PROSTHETIC TECHNICIAN [id number] Univers 06:17:00 10:43:00 ity of [facility] 2021-10-06 2021-10-06 Hospital Henrietta Santos [facility] 1.2.840.114 [id number] Univers 06:17:00 10:43:00 Encounter Edis GUTIÉRREZ 350.1.13.10 ity of [place] 4.2.7.2.686 [place] SURGICAL [id number] [facility] [address] 2021-10-06 2021-10-06 Outpatient R TOM [facility] PROSTHETIC TECHNICIAN [id number] Univers 06:17:00 10:43:00 ity of [facility] 2021-10-06 2021-10-06 Surgery Tom [facility] 1.2.987.175 [id number] Univers 07:50:00 09:26:00 Edis GUTIÉRREZ 350.1.13.10 i ty of [place] 4.2.7.2.686 [place] SURGICAL [id number] [facility] 0[address] 2021-10-06 2021-10-06 Anesthesia Yvon Garcia [facility] 1.2.840.11 [id number] Univers 07:53:00 09:11:00 Event Phill Louie 350.1.13.10 ity of [place] 4.2.7.2.686 [place] SURGICAL [id number] [facility] 0[address] 2021-10-05 2021-10-05 Shirring Tender Hailey, Adc Lab Main [facility] 1.2.8 40.114 [id number] Univers 14:00:00 14:15:00 Visit Henrietta Santos Edis GUTIÉRREZ 350.1.13.10 ity of [place] 4.2.7.2.686 [place] [id number] [facility] 353 [facility] 2021-10-05 2021-10-05 Shirring Tender 1, Adc Lab [facility] 1.2.840.114 [id number] Univers 13:00:00 13:15:00 Visit Henrietta Santos Edis GUTIÉRREZ 350.1.13.10 ity of [place] 4.2.7.2.686 [place] C[place]US [id number] [facility] [address] 2021-10-05 2021-10-05 Outpatient R HAYDEN SANTOSEN [facility] [id number] Univers 13:00:00 13:00:00 ity [facility] 2021-10-05 2021-10-05 Orders Doctor PHILL [id number] Univers 00:00:00 00:00:00 Only Unassigned, [place] [id number] ity of [facility] [id number] [place] [id number] [address] 2021-10-01 2021-10-01 Outpatient R CORNELL [facility] [id number] Univers 15:15:00 15:15:00 BHARGAV ity [facility] 2021-09-23 2021-09-23 Outpatient R [facility] [id number] Univers 14:00:00 14:00:00 ity [facility] 2021-09-23 2021-09-23 Outpatient R [facility] [id number] Univers 14:00:00 14:00:00 ity [facility] 2021-09-18 2021-09-18 Outpatient R CORNELL [facility] [id number] Univers 08:00:00 08:00:00 BHARGAV ity [facility] 2021-09-15 2021-09-15 Outpatient R HENRIETTA SANTOS [facility] [id number] Univers 14:15[facility] 2021-09-15 2021-09-15 Office Henrietta Santos [facility] 1.2.806.025 [id number] Univers 14:15:00 15:09:42 Visit Edis GUTIÉRREZ 350.1.13.10 i ty [facility] [place] [phone] Mi dical [address] 2021-09-15 2021-09-15 Outpatient R HENRIETTA SANTOS [facility] [id number] Univers 14:15:00 14:15:00 ity [facility] 2021-09-02 2021-09-02 Imm/Inj Vaccine, [facility] 1.2.840.114 [id number] Univers 14:00:00 14:11:11 Visit Moe Marie 350.1.13 .10 ity of [place] [phone] Mi dical NAL 044 [facility] 2021-09-02 2021-09-02 Outpatient R FRANK [facility] [id number] Univers 14:00:00 14:00:00 MOE ity [facility] 2021-08-27 2021-08-27 Outpatient R CORNELL [facility] [id number] Univers 15:15:00 15:15:00 BHARGAV [facility] 2021-08-26 2021-08-26 Case [facility] 1.2.377.320 [id number] Univers 00:00:00 00:00:00 Management Edis GUTIÉRREZ 350.1.13.10 ity [facility] [place] [phone] Mi dical NAL 134 [facility] 2021-08-24 2021-08-24 Outpatient R HENRIETTA SANTOS [facility] [id number] Univers 10:00:00 11:05:48 ity [facility] 2021-08-24 2021-08-24 Initial [facility] 1.2.223.948 [id number] Univers 10:00:00 11:05:48 Edis GUTIÉRREZ 350.1.13.10 ity of Visit [place]2.7.2.[place] [phone] Mi dical NAL 134 [facility] 2021-08-24 2021-08-24 Orders Doctor POLLOCK 1.2.840.114 [id number] Univers 00:00:00 00:00:00 Only Unassigned, COLEMAN 350.1.13.10 ity of [place] [facility] 4.2.7.2.686 Golden as [phone] [address] 2021-08-10 2021-08-10 Outpatient Davion MISHRA [facility] [id number] Univers 13:06:58 23:59:00 LOKESH mata [facility] 2021-08-10 2021-08-10 Outpatient R TAD [facility] [id number] Univers 13:06:58 23:59:00 LOKESH mata [facility] 2021-08-10 2021-08-10 Hospital [facility] 1.2.840.114 [id number] Univers 13:06:58 23:59:00 Encounter Lokesh Loera SPECIALTY 350.1.13.10 it[place] AT [phone] Mi gilberto JANE 809 [facility] 2021-08-10 2021-08-10 Office [facility] 1.2.840.114 [id number] Univers 13:50:00 13:50:00 Visit Lokesh Loera SPECIALTY 350.1.13.10 it[place] [phone] Mi gilberto JANE 198 [facility] 2021-08-06 2021-08-06 Telephone [facility] 1.2.840.114 [id number] Univers 00:00:00 00:00:00 Jocelyn Gray BIODIESEL PRODUCTION TECHNICIAN 350.1.13.[address] [facility] 4.2.7.2.686 [place] as MATERNAL [phone] Med ical & CHILD 107 [facility] 2021-07-31 2021-07-31 Outpatient Davion HOOK [facility] [id number] Univers 13:15:00 13:33:04 HETAL [facility] 2021-07-31 2021-07-31 Nurse Meliza-Rmchp Nurse Vst, Fp Nrpt Pills [facility] 1.2.840.114 [id number] Univers 13:15:00 13:33:04 Visit Hetal Hook BIODIESEL PRODUCTION TECHNICIAN 350.1.13.[address] [facility] 4.2.7.2.686 [place] as MATERNAL [phone] Med ical & CHILD 125 [facility] 2021-07-31 2021-07-31 Outpatient Davion HOOK [facility] [id number] Univers 13:15:00 13:15:00 HETAL olivier [facility] 2021-07-30 2021-07-30 Outpatient Davion INFANTE [facility] [id number] Univers 16:20:00 16:20:00 PHILL [facility] 2021-07-30 2021-07-30 Office [facility] 1.2.589.263 [id number] Univers 16:20:00 16:20:00 Visit Phill PRIMARY 350.1.13.10 it y of [place].2.[place] [phone] Mi dical [address] 2021-07-30 2021-07-30 [facility] 1.2.923.304 [id number] Univers 16:20:00 16:20:00 Visit Phill PRIMARY 350.1.13.10 it y of [place] 4[place].2.[place] [phone] Mi dical [address] 2021-07-30 2021-07-30 Outpatient R ARELIS [facility] [id number] Univers 16:20:00 16:07:54 PHILL [facility] 2021-07-24 2021-07-24 Outpatient R KACEY [facility] [id number] Univers 17:20:00 17:20:00 ROSA mata [facility] 2021-07-16 2021-07-16 Outpatient R ARELIS [facility] [id number] Univers 15:00:00 15:00:00 PHILL [facility] 2021-05-26 2021-05-26 Outpatient [facility] [id number] Univers 09:20:00 09:20:00 MOE [facility] 2021-05-26 2021-05-26 Outpatient [facility] [id number] Univers 09:20:00 09:20:00 [facility] 2021-05-25 2021-05-25 Outpatient Davion PARKER [facility] [id number] Univers 15:00:00 15:46:14 AMANDA mata o [facility] 2021-05-25 2021-05-25 Office [facility] 1.2.840.114 [id number] Univers 15:00:00 15:46:14 Visit Amanda Ricardo BIODIESEL PRODUCTION TECHNICIAN 350.1.13.10 ity of REGIONAL 4.2.7.2.686 [place] as MATERNAL [phone] [facility] & CHILD [address] [place] [address] 2021-05-25 2021-05-25 Outpatient R ELENA [facility] [id number] Univers 15:00:00 15:00:00 ROSMELISSANDA ity o f [facility] 2021-05-25 2021-05-25 Orders Doctor PHILL 1.2.840.114 [id number] Univers 00:00:00 00:00:00 Only Unassigned, COLEMAN 350.1.13.10 ity of [place] [facility] 4.2.7.2.686 [place] as [phone] [address] 2021-05-19 2021-05-19 Office Josey Koch [facility] 1.2.840.114 [id number] Univers 16:45:00 17:00:00 Visit [facility] 350.1.13.10 it y of [place] 4.2.7.2.686 [place] [phone] [address] OFFICE BUILDING 2021-05-19 2021-05-19 Outpatient R JOSEY KOCH [facility] [id number] Univers 16:45:00 16:45:00 ity of [facility] 2021-05-05 2021-05-05 Telephone [facility] 1.2.044.771 [id number] Univers 00:00:00 00:00:00 Amanda R BIODIESEL PRODUCTION TECHNICIAN 350.1.13.[address] [facility] 4.2.7.2.686 [place] as MATERNAL [phone] [facility] & CHILD [address] [place] [address] 2021-05-05 2021-05-05 Telephone Elena [facility] 1.2.171.141 [id number] Univers 00:00:00 00:00:00 Raghunda R BIODIESEL PRODUCTION TECHNICIAN 350.1.13.10 ity of REGIONAL 4.2.7.2.686 [place] as MATERNAL [phone] [facility] CHILD [address] [place] [address] 2021-04-30 2021-04-30 Outpatient R ELENA [facility] [id number] Univers 15:30:00 16:02:20 ROSMELISSANDA ity o f [facility] 2021-04-30 2021-04-30 Office [facility] 1.2.840.114 [id number] Univers 15:30:00 16:02:20 Visit Amanda Ricardo BIODIESEL PRODUCTION TECHNICIAN 350.1.13.10 ity of REGIONAL 4.2.7.2.686 [place] as MATERNAL [phone] Med ical & CHILD [address] [place] [address] 2021-04-28 2021-04-28 Outpatient JOSEY AWAD [facility] [id number] Univers 15:45:00 15:45:00 ity [facility] 2021-04-04 2021-04-04 Outpatient Davion INFANTE [facility] [id number] Univers 08:43:04 23:59:00 PHILL mata [facility] 2021-04-04 2021-04-04 [facility] 1.2.840.114 [id number] Univers 08:43:04 23:59:00 Encounter Phill SPECIALTY 350.1.13.10 it[place] of [place]2.[place] AT [id number] Mi geedaniel JOSE [address] [place] [address] 2021-04-04 2021-04-04 [facility] 1.2.840.114 [id number] Univers 08:42:06 08:42:06 Encounter Phill SPECIALTY 350.1.13.10 it[place] of [place]2.[place].2.[place] [phone] Mi gilberto BUCK 803 [facility] 2021-03-20 2021-03-20 [facility] 1.2.840.114 [id number] Univers 00:00:00 00:00:00 Phill PRIMARY 350.1.13.10 it y of [place] 4.2.7.2.686 [place] [id number] Mi gilberto [address] [place] [address] 2021-03-05 2021-03-05 Outpatient Davion [facility] [id number] Univers 15:40:00 15:40:00 PHILL mata [facility] 2021-02-26 2021-02-26 Outpatient [facility] [id number] Univers 15:30:00 15:30:00 PHILL mata [facility] 2021-02-19 2021-02-19 Outpatient R ARELIS [facility] [id number] Univers 15:50:00 15:50:00 PHILL mata [facility] 2021-01-20 2021-01-20 Outpatient R MONSTER [facility] [id number] Univers 13:15:00 13:15:00 HETAL mata [facility] 2021-01-12 2021-01-12 Outpatient R CHRISTINA [facility] [id number] Univers 09:15:00 09:15:00 JOCELYN mata o f [facility] 2021-01-08 2021-01-[address] [facility] 1.2.840.114 [id number] Univers 00:00:00 00:00:00 Jocelyn C BIODIESEL PRODUCTION TECHNICIAN 350.1.13.[address] [facility] 4.2.7.2.686 [place] as MATERNAL [phone] [facility] & CHILD [address] [place] [address] 2021-01-07 2021-01-07 Telephone [facility] 1.2.840.114 [id number] Univers 00:00:00 00:00:00 Jocelyn C BIODIESEL PRODUCTION TECHNICIAN 350.1.13.10 ity of REGIONAL 4.2.7.2.686 [place] as MATERNAL [phone] [facility] & [address] 2021-01-05 2021-01-[address] [facility] 1.2.746.187 [id number] Univers 13:58:32 14:20:28 Visit Jocelyn C BIODIESEL PRODUCTION TECHNICIAN 350.1.13.[address] [facility] 4.2.7.2.686 [place] as MATERNAL [phone] [facility] & CHILD [address] [place] [address] 2021-01-05 2021-01-05 Outpatient R CHRISTINA [facility] [id number] Univers 13:45:00 13:45:00 JOCELYN ity o f [facility] 2021-01-05 2021-01-05 Outpatient R CHRISTINA [facility] [id number] Univers 11:00:00 11:00:00 JOCELYN ity o f [facility] 2020-12-29 2020-12-29 Office Christina, [facility] 1.2.359.749 [id number] Univers 08:45:08 09:15:08 Visit Jocelyn C BIODIESEL PRODUCTION TECHNICIAN 350.1.13.10 ity of REGIONAL 4.2.7.2.686 [place] as MATERNAL [phone] [facility] & [address] 2020-12-29 2020-12-29 Office [facility] 1.2.487.886 [id number] Univers 08:45:08 09:15:08 Visit Jocelyn C BIODIESEL PRODUCTION TECHNICIAN 350.1.13.10 ity of REGIONAL 4.2.7.2.686 [place] as MATERNAL [phone] [address] 2020-12-29 2020-12-29 Outpatient R CHRISTINA [facility] [id number] Univers 08:45:00 08:45:00 JOCELYN mata o f [facility] 2020-12-29 2020-12-29 Orders Doctor POLLOCK 1.2.840.114 [id number] Univers 00:00:00 00:00:00 Only Unassigned, COLEMAN 350.1.13.10 ity of [place] [facility] 4.2.7.2.686 Golden as [id number] [address] 2020-12-29 2020-12-29 Orders Doctor POLLOCK 1.2.840.114 [id number] Univers 00:00:00 00:00:00 Only Unassigned, COLEMAN 350.1.13.10 ity of [place] [facility] 4.2.7.2.686 Golden as [id number] [address] 2020-12-19 2020-12-19 Office [facility] 1.2.412.106 [id number] Univers 15:55:19 16:24:05 Visit Jocelyn C BIODIESEL PRODUCTION TECHNICIAN 350.1.13.10 ity of REGIONAL 4.2.7.2.686 [place] as MATERNAL [id number] [address] 2020-12-19 2020-12-19 Office [facility] 1.2.074.952 [id number] Univers 15:55:19 16:24:05 Visit Jocelyn Gray BIODIESEL PRODUCTION TECHNICIAN 350.1.13.10 [facility] 4.2.7.2.686 [place] as MATERNAL [id number] [facility] & [address] 2020-12-19 2020-12-19 Outpatient R CHRISTINA, [facility] [id number] Univers 16:00:00 16:00:00 JOCELYN mata o f [facility] 2020-12-09 2020-12-09 Outpatient R [facility] [id number] Univers 13:00:00 13:00:00 [facility] 2020-11-25 2020-11-25 Office [facility] 1.2.840.114 [id number] Univers 11:48:14 12:04:05 [facility] BIODIESEL PRODUCTION TECHNICIAN 350.1.13.10 [facility] 4.2.7.2.686 [place] as MATERNAL [id number] [facility] & [address] 2020-11-25 2020-11-25 Office [facility] 1.2.840.114 [id number] 11:48:14 12:04:05 Visit Amanda R BIODIESEL PRODUCTION TECHNICIAN 350.1.13.10 [facility] 4.2.7.2.686 MATERNAL [phone] & [address] 2020-11-25 2020-11-25 Outpatient R ELENA [facility] [id number] Univers 12:00:00 12:00:00 ROSMELISSANDA celiney o f [facility] 2020-11-12 2020-11-12 Outpatient R CHRISTINA, [facility] [id number] Univers 09:30:00 09:30:00 JOCELYN mata o f [facility] 2020-11-07 2020-11-07 Outpatient R CORNELL [facility] [id number] Univers 08:45:00 08:45:00 [facility] 2020-10-22 2020-10-22 Telephone [facility] 1.2.840.114 [id number] Univers 00:00:00 00:00:00 Jocelyn C BIODIESEL PRODUCTION TECHNICIAN 350.1.13.10 ity of REGIONAL 4.2.7.2.686 [place] as MATERNAL [id number] [facility] ical & CHILD [address] [place] [address] 2020-10-15 2020-10-15 Urgent Provider, [facility] 1.2.840.114 [id number] Univers 12:52:51 13:29:22 Care Evi Rodriguez Formerly [facility] 350.1.13.10 ity [facility] 4.2.7.2.686 Golden as Professio [phone] Mi dical [address] Office Building One 2020-10-15 2020-10-15 Outpatient R LOUIS [facility] [id number] Univers 13:00:00 13:00:00 EVI ity [facility] 2020-10-13 2020-10-13 Outpatient R CHRISTINA [facility] [id number] Univers 14:15:00 14:15:00 JOCELYN bergery o f [facility] 2020-10-08 2020-10-08 Outpatient P [facility] [id number] Univers 13:00:00 13:00:00 ity [facility] 2020-10-06 2020-10-06 Outpatient R [facility] [id number] Univers 11:00:00 11:00:00 ity [facility] 2020-10-02 2020-10-02 Telephone [facility] 1.2.840.114 [id number] Univers 00:00:00 00:00:00 Jocelyn Gray BIODIESEL PRODUCTION TECHNICIAN 350.1.13.[address] [facility] 4.2.7.2.686 [place] as MATERNAL [id number] Med ical & CHILD [address] [place] [address] 2020-10-01 2020-10-01 [facility] 1.2.840. 114 [id number] Univers 10:23:48 10:38:48 Visit Jocelyn Vasquez BIODIESEL PRODUCTION TECHNICIAN 350.1.13. [address] [facility] 4.2.7.2.686 Golden as MATERNAL [phone] [facility] ical & CHILD [address] [place] [address] 2020-10-01 2020-10-01 Outpatient R [facility] [id number] Univers 10:30:00 10:30:00 ity of [facility] 2020-09-30 2020-09-30 Office August Josey [facility] 1.2.840.114 [id number] Univers 13:53:34 14:08:34 Visit Health 350.1.13.10 it [place] [phone] [address] Office Building 2020-09-30 2020-09-30 Outpatient R AUGUSTJOSEY [facility] [id number] Univers 14:00:00 14:00:00 ity [facility] 2020-09-29 2020-09-[address] [facility] 1.2.425.326 [id number] Univers 12:48:08 13:43:12 Visit Jocelyn Gray BIODIESEL PRODUCTION TECHNICIAN 350.1.13.[address] [facility] 4.2.7.2.686 [place] as MATERNAL [phone] Med ical & CHILD 107 [facility] 2020-09-29 2020-09-29 Outpatient R CHRISTINA, [facility] [id number] Univers 12:45:00 12:45:00 JOCELYN snyder [facility] 2020-09-23 2020-09-23 Outpatient R CHRISTINA [facility] [id number] Univers 09:00:00 09:00:00 JOCELYN mata o f [facility] 2020-09-13 2020-09-13 Nurse China Fine 1.2.840.114 [id number] Univers 00:00:00 00:00:00 Triage COLEMAN 350.1.13.10 it y of HOSPITAL 4.2.7.2.686 [place] as [phone] [address] 2020-09-12 2020-09-12 Telephone August Josey [facility] 1.2.840.114 [id number] Univers 00:00:00 00:00:00 Health 350.1.13.10 [place] [id number] [address] Office Building 2020-09-03 2020-09-03 Outpatient R [facility] [id number] Univers 08:15:00 08:15:00 ity of [facility] 2020-09-01 2020-09-01 Outpatient R CHRISTINA [facility] [id number] Univers 07:45:00 07:45:00 JOCELYN mata o f [facility] 2020-08-28 2020-08-28 [facility] 1.2.840.114 [id number] Univers 00:00:00 00:00:00 Jocelyn C BIODIESEL PRODUCTION TECHNICIAN 350.1.13.10 ity of REGIONAL 4.2.7.2.686 [place] as MATERNAL [phone] [facility] & CHILD [address] [place] [address] 2020-08-27 2020-08-27 Telephone [facility] 1.2.840.114 [id number] Univers 00:00:00 00:00:00 Jocelyn C BIODIESEL PRODUCTION TECHNICIAN 350.1.13.10 ity of REGIONAL 4.2.7.2.686 [place] as MATERNAL [phone] [facility] & CHILD [address] [place] [address] 2020-08-26 2020-08-26 Initial [facility] 1.2.915.538 [id number] Univers 14:28:27 15:44:22 Jocelyn C BIODIESEL PRODUCTION TECHNICIAN 350.1.13.10 ity of Visit REGIONAL 4.2.7.2.686 Golden as MATERNAL [phone] [facility] & CHILD [address] [place] [address] 2020-08-26 2020-08-26 Outpatient R CHRISTINA [facility] [id number] Univers 14:00:00 14:00:00 JOCELYN snyder f [facility] 2020-08-26 2020-08-26 Orders Doctor POLLOCK 1.2.840.114 [id number] Univers 00:00:00 00:00:00 Only Unassigned, COLEMAN 350.1.13.10 ity of [place] [facility] 4.2.7.2.686 Golden as [id number] [address] 2020-07-22 2020-07-22 Outpatient R PARKER [facility] [id number] Univers 09:45:00 09:45:00 AMANDA mata o [facility] 2020-07-22 2020-07-22 Outpatient R ELENA [facility] [id number] Univers 09:45:00 09:45:00 AMANDA mata o [facility] 2020-07-22 2020-07-22 Office [facility] 1.2.840.114 [id number] Univers 09:25:38 09:43:35 Visit Lindanadir R BIODIESEL PRODUCTION TECHNICIAN 350.1.13.[address] [facility] 4.2.7.2.686 [place] as MATERNAL [phone] [facility] CHILD [address] [place] [address] 2020-07-08 2020-07-08 Office [facility] 1.2.840.114 [id number] Univers 14:20:22 14:44:34 Visit [facility] R BIODIESEL PRODUCTION TECHNICIAN 350.1.13.10 ity [facility] 4.2.7.2.686 Golden as MATERNAL [phone] [facility] CHILD [address] [place] [address] 2020-07-08 2020-07-08 Outpatient R PARKER [facility] [id number] Univers 14:15:00 14:15:00 AMANDA mata o [facility] 2020-07-08 2020-07-08 Patient [facility] 1.2.840.114 [id number] Univers 00:00:00 00:00:00 Outreach [facility] 350.1.13.10 i ty of [facility] [place]2.[place].2.[place] [id number] [address] 2020-06-10 2020-06-10 Outpatient R CHRISTINA [facility] [id number] Univers 09:30:00 09:30:00 JOCELYN esperanza o [facility] 2020-05-21 2020-05-21 Office [facility] 1.2.840.114 [id number] Univers 12:48:35 13:25:07 Visit Lindanadir R BIODIESEL PRODUCTION TECHNICIAN 350.1.13.[address] [facility] 4.2.7.2.686 Golden as MATERNAL [id number] Med ical & CHILD [address] [place] [address] 2020-05-21 2020-05-21 [facility] [id number] Univers 12:45:00 12:45:00 AMANDA mata o f [facility] 2020-05-21 2020-05-21 Orders Doctor PHILL 1.2.840.114 [id number] Univers 00:00:00 00:00:00 Only Unassigned, COLEMAN 350.1.13.10 ity of [place] [facility] 4.2.7.2.686 Golden as [id number] [address] 2020-03-18 2020-03-18 Nurse Visit, [facility] Nurse [facility] 1.2 .840.114 [id number] Univers 10:31:12 10:55:32 Visit Amanda Parker BIODIESEL PRODUCTION TECHNICIAN 350.1.13.[address] [facility] 4...2.686 Golden as MATERNAL [phone] Med ical & CHILD [address] [place] [address] 2020-03-18 2020-03-18 Outpatient R [facility] [id number] Univers 10:30:00 10:30:00 ity of [facility] 2020-03-18 2020-03-18 [facility] [id number] Univers 10:30:00 10:30:00 AMANDA mata o braeden [facility] 2020-03-10 2020-03-10 Telephone [facility] 1.2.840.114 [id number] Univers 00:00:00 00:00:00 Jocelyn C BIODIESEL PRODUCTION TECHNICIAN 350.1.13.[address] [facility] 4.2.7.2.686 Golden as MATERNAL [phone] Med ical & CHILD [address] [place] [address] 2020-03-05 2020-03-05 Office [facility] 1.2.801.531 [id number] Univers 15:35:31 16:27:42 Visit Jocelyn C BIODIESEL PRODUCTION TECHNICIAN 350.1.13.[address] [facility] 42.7.2.686 Golden as MATERNAL [phone] Med ical & CHILD [address] [place] [address] 2020-03-05 2020-03-05 Outpatient R AKINSIPE, [facility] [id number] Univers 15:30:00 15:30:00 JOCELYN snyder braeden [facility] 2020-03-05 2020-03-05 Outpatient R AKINSIPE, [facility] [id number] Univers 15:30:00 15:30:00 JOCELYN deras [facility] 2020-02-26 2020-02-26 Orders Doctor PHILL 1.2.840.114 [id number] Univers 00:00:00 00:00:00 Only Unassigned, COLEMAN 350.1.13.10 ity of [place] [facility] 4.2.7.2.686 Golden as [phone] [address] 2020 2020 [facility] [id number] Univers 10:30:00 10:30:00 PHILL mata [facility] 2020-02-08 2020-02-08 Office [facility] 1.2.641.326 [id number] Univers 14:38:38 15:30:42 Visit Jocelyn Gray BIODIESEL PRODUCTION TECHNICIAN 350.1.13.10 ity [facility] 4.2.7.2.686 Golden as MATERNAL [phone] [facility] CHILD [address] [place] [address] 2020-02-08 2020-02-08 Outpatient R RENASIJIM, [facility] [id number] Univers 14:45:00 14:45:00 JOCELYN deras [facility] 2020-01-30 2020-01-30 Orders Doctor PHILL [id number] Univers 00:00:00 00:00:00 Only Unassigned, [place] [id number] ity of [place] [facility] [id number] Golden as [phone] [address] 2020-01-24 2020-01-24 [facility] [id number] Univers 08:40:00 08:40:00 PHILL mata [facility] 2020-01-23 2020-01-23 [facility] [id number] Univers 00:00:00 00:00:00 Tony PRIMARY [id number] it y of [place] 4[place]2.7.2.[place] [phone] [address] 2020-01-23 2020-01-23 [facility]phone [facility] [id number] Univers 00:00:00 00:00:00 Rosmelissanda R BIODIESEL PRODUCTION TECHNICIAN [id number] ity of REGIONAL [id number] [place] as MATERNAL [phone] [facility] ical & CHILD [address] [place] [address] 2020-01-21 2020-01-21 Office [facility] [id number] Univers 08:32:46 09:29:11 Visit Lindamahnaza R BIODIESEL PRODUCTION TECHNICIAN [id number] ity of REGIONAL [id number] [place] as MATERNAL [phone] [facility] & [address] 2020-01-21 2020-01-21 [facility] [id number] Univers 08:30:00 08:30:00 RAGHUNDA ity o f [facility] 2019-12-27 2020-01-15 [facility] [id number] Univers 14:49:24 22:41:22 Visit Phill PRIMARY 350.1.13.10 it y of [place] [phone] [address] 2019-12-31 2019-12-31 Telephone [facility] 1.2.840.114 [id number] Univers 00:00:00 00:00:00 Jocelyn C BIODIESEL PRODUCTION TECHNICIAN 350.1.13.10 ity of REGIONAL 4.2.7.2.686 [place] as MATERNAL [phone] [facility] & CHILD [address] [place] [address] 2019-12-28 2019-12-[address] [facility] [id number] Univers 15:18:44 15:56:31 Visit Jocelyn C BIODIESEL PRODUCTION TECHNICIAN 350.1.13.10 ity of REGIONAL 4.2.7.2.686 [place] as MATERNAL [id number] [facility] & CHILD [address] [place] [address] 2019-12-28 2019-12-28 Outpatient R CHRISTINA [facility] [id number] Univers 15:30:00 15:30:00 JOCELYN ity o f [facility] 2019-12-27 2019-12-27 [facility] 1.2.840.114 [id number] Univers 14:56:29 23:59:00 Encounter Phill PRIMARY 350.1.13.10 ity [facility] [place] [phone] [facility] [address] 2019-12-27 2019-12-27 [facility] [id number] Univers 14:50:00 14:50:00 PHILL ity [facility] 2019-12-26 2019-12-26 [facility] [id number] Univers 00:00:00 00:00:00 Jim PRIMARY 350.1.13.[address] 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 350.1.13.10 ity [facility] 4.2.7.2.686 [place] as MATERNAL [phone] [facility] ical & CHILD [address] [place] [address] 2019-12-25 2019-12-25 Outpatient R ELENA [facility] [id number] Univers 13:00:00 13:00:00 AMANDA bergery o f [facility] 2019-12-10 2019-12-10 Outpatient R JOSEY KOCH [facility] [id number] Univers 09:30:00 09:30:00 ity [facility] 2019-10-02 2019-10-02 Nurse Visit, Wendie Nurse [facility] 1.2 .840.114 [id number] Univers 12:50:26 13:05:26 Visit Amanda Parker BIODIESEL PRODUCTION TECHNICIAN 350.1.13.[address] [facility] 4.2.7.2.686 [place] as MATERNAL [id number] [facility] & [address] 2019-10-02 2019-10-02 Outpatient R [facility] [id number] Univers 13:00:00 13:00:00 ity [facility] 2019-10-01 2019-10-01 Outpatient R [facility] [id number] Univers 13:00:00 13:00:00 ity of [facility] 2019-10-01 2019-10-01 Telephone Christina [facility] 1.2.840.114 [id number] Univers 00:00:00 00:00:00 Jocelyn Gray BIODIESEL PRODUCTION TECHNICIAN 350.1.13.[address] [facility] 4.2.7.2.686 [place] as MATERNAL [id number] [facility] & CHILD [address] [place] [address] 2019-08-21 2019-08-21 Orders Doctor PHILL 1.2.840.114 [id number] Univers 00:00:00 00:00:00 Only Unassigned, COLEMAN 350.1.13.10 ity of [place] [facility] 4.2.7.2.686 [place] as [phone] [address] 2019-07-09 2019-07-09 Nurse Visit, RitoRmchp Nurse [facility] 1.2 .840.114 [id number] Univers 13:42:44 13:57:44 Visit Amanda Parker Davion BIODIESEL PRODUCTION TECHNICIAN 350.1.13.[address] [facility] 4.2.7.2.686 [place] as MATERNAL [id number] [facility] & CHILD [address] [place] [address] 2019-07-09 2019-07-09 Outpatient R [facility] [id number] Univers 13:30:00 13:30:00 ity [facility] 2019-07-05 2019-07-05 Outpatient R ARELIS [facility] [id number] Univers 09:50:00 09:50:00 PHILL ity [facility] 2019-06-11 2019-06-11 Office Josey Koch [facility] 1.2.840.114 [id number] Univers 09:45:09 10:00:09 Visit Health 350.1.13.10 it [place] [phone] [address] Office Building 2019-06-11 2019-06-11 Outpatient R JOSEY KOCH [facility] [id number] Univers 10:00:00 10:00:00 ity of [facility] 2019-05-08 2019-05-09 Office Josey Koch [facility] 1.2.840.114 [id number] Univers 13:07:45 11:20:43 Visit Health 350.1.13.10 it [place] [phone] [address] Office Building 2019-05-03 2019-05-05 Hospital Josey Koch 1.2.840.114 [id number] Univers 08:27:00 13:50:00 Encounter Coleman 350.1.13.10 ity of Hospital 4.2.7.2.686 [place] as [phone] [address] 2019-04-27 2019-04-27 Telephone Josey Koch [facility] 1.2.840.114 [id number] Univers 00:00:00 00:00:00 Health 350.1.13.10 it y of [place].2.[place] - [phone] [address] 2019-03-26 2019-03-26 Outpatient Davion DINERO [facility] [id number] Univers 10:39:20 23:59:00 NATA mata [facility] 2019-03-26 2019-03-26 Outpatient R BAR [facility] [id number] Univers 10:39:20 23:59:00 NATA mata [facility] 2019-03-23 2019-03-23 Outpatient Davion DINERO [facility] [id number] Univers 00:00:00 00:00:00 NATA mata [facility] 2018-12-25 2019-01-02 [facility] 1.2.840.114 [id number] Univers 08:15:33 13:00:13 Amanda R BIODIESEL PRODUCTION TECHNICIAN 350.1.13.10 ity of Visit REGIONAL 4.2.7.2.686 [place] as MATERNAL [id number] [facility] & CHILD [address] [place] [address] 2018-12-25 2018-12-25 Outpatient [facility] [id number] Univers 08:00:00 09:13:28 RAGHUNDA ity o f [facility] 2018-12-21 2018-12-21 Routine [facility] 1.2.840.114 [id number] Univers 08:15:00 08:30:00 Raghunda R 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 4.2.7.2.686 [place] as MATERNAL [phone] [facility] & CHILD [address] [place] [address] 2018-12-21 2018-12-21 Outpatient Davion PARKER [facility] [id number] Univers 08:15:00 08:15:00 CARROLA ity o f [facility] 2018-12-02 2018-12-04 [facility] PHILL [place] 1.2.840.114 [id number] Univers 00:16:00 15:06:00 Encounter Erika COLEMAN 350.1.13.10 ity of [facility] 4.2.7.2.686 [place] [phone] [address] 2018-11-30 2018-11-30 [facility]ine [facility] 1.2.456.858 [id number] Univers 08:54:52 09:13:01 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 TECHNICIAN 350.1.13.10 ity of Visit REGIONAL 4.2.7.2.686 [place] as MATERNAL [id number] Med ical & CHILD [facility] 2018-11-14 2018-11-14 Abstract [facility] 1.2.190.572 [id number] Univers 00:00:00 00:00:00 Peter Phill VITALE 350.1.13.10 ity of CARE 4.2.7.2.686 Shaun márquez PAVILLION [phone] [facility] [address] Results Test Description Test Time Test Comments Results Result Comments Source POCT URINALYSIS W/O SPECIFIC GRAVITY 2022-06-25 21:51:00 Test Item Value Reference Range Interpretation Comme nts POCT PH U (test code = 3254) 6 mg/dl 5-8 POCT U LEUK EST (test code = 3263) neg Negative - Negative POCT U NIT (test code = 3262) neg Negative - Negative POCT U PROT (test code = 3259) trace Negative - Negative POCT U GLU (test code = 3256) neg Negative - Negative POCT U KETONE (test code = 3258) neg Negative - Negative POCT U BLD (test code = 3257) 250 Negative - Negative [facility] SPECIFIC [id number] 21:51:00 Test Item Value Reference Range Interpretation Comments POCT PH U (test code = 3254) 6 mg/dl 5-8 POCT U LEUK EST (test code = neg Negative - Negative 3263) POCT U NIT (test code = 3262) neg Negative - Negative POCT U PROT (test code = 3259) trace Negative - Negative POCT U GLU (test code = 3256) neg Negative - Negative POCT U KETONE (test code = 3258) neg Negative - Negative POCT U BLD (test code = 3257) 250 Negative - Negative [facility]/O SPECIFIC [id number] 21:51:00 Test Item Value Reference Range Interpretation Comments POCT PH U (test code = 3254) 6 mg/dl 5-8 POCT U LEUK EST (test code = neg Negative - Negative 3263) POCT U NIT (test code = 3262) neg Negative - Negative POCT U PROT (test code = 3259) trace Negative - Negative POCT U GLU (test code = 3256) neg Negative - Negative POCT U KETONE (test code = 3258) neg Negative - Negative POCT U BLD (test code = 3257) 250 Negative - Negative [facility] PAN[facility] ([id number])2022-06-22 20:03:18 Test Item Value Reference Range Interpretation Comments NA (test code = 136 mmol/L 135-145 8420878855) K (test code = 4.1 mmol/L 3.5-5.0 6369352277) CL (test code = 104 mmol/L 98-108 9929236197) CO2 TOTAL (test code = 24 mmol/L 23-31 7802181320) AGAP (test code = 8 2-16 8214869177) BUN (test code = 11 mg/dL 7-23 4008979017) GLUCOSE (test code = 96 mg/dL 70-110 7900856553) CREATININE (test code = 0.47 mg/dL 0.50-1.04 L 5233727469) TOTAL BILI (test code = 0.6 mg/dL 0.1-1.1 0268067922) CALCIUM (test code = 8.7 mg/dL 8.6-10.6 7411808063) T PROTEIN (test code = 7.2 g/dL 6.3-8.2 3183926095) ALBUMIN (test code = 4.4 g/dL 3.5-5.0 5091944926) ALK PHOS (test code = 77 U/L 34-122 9616173616) ALTv (test code = 14 U/L 5-35 1742-6) AST(SGOT) (test code = 18 U/L 13-40 6286782610) eGFR (test code = 162.8 mL/min/1.73m2 2333038639) BAN (test code = BAN) Association of Glomerular Filtration Rate (GFR) and Staging of Kidney Disease* + --+ --+ ------+| GFR (mL/min/1.73 m2) ?| With Kidney Damage ?| ?Without Kidney Damage+ --------+ --------+ +| ?>90 ?| ?Stage one ?| ? Normal ?+ ---+ ---+ -------+| ?60-89 ?| ?Stage two ?| ? Decreased GFR ? + --+ --+ ------+| ?30-59 ?| ?Stage three ?| ? Stage three ? + --+ --+ ------+| ?15-29 ?| ?Stage four ? | ? Stage four ?+ ---+ ---+ -------+| ?<15 (or dialysis) ? ?| ?Stage five ? | ? Stage five ?+ ---+ ---+ -------+ *Each stage assumes the associated GFR level has been in effect for at least three months. ?Stages 1 to 5, with or without kidney disease, indicate chronic kidney disease. Notes: Determination of stages one and two (with eGFR >59mL/min/1.73 m2) requires estimation of kidney damage for at least three months as defined by structural or functional abnormalities of the kidney, manifested by either:Pathological abnormalities or Markers of kidney damage (including abnormalities in the composition of the blood or urine or abnormalities in imaging tests). Lab Interpretation Abnormal (test code = 15611-4) [facility] 20:03:18 Test Item Value Reference Range Interpretation Comments LIPASE (test code = 5137224566) 56 U/L 0-220 Lab Interpretation (test code = Normal 13437-8) [facility] Center[facility] WITH [id number] 19:45:15 Test Item Value Reference Range Interpretation Comments WBC (test code = 7.23 See_Comment [Automated 6069-2) message] The sy stem which generated this result transmitted reference range : 4.30 - 11.10 10*3/?L. The reference range was not used to interpret this result as normal/abnormal . RBC (test code = 4.53 See_Comment [Automated 697-9) message] The sy stem which generated this result transmitted reference range : 3.93 - 5.25 10*6/?L. The reference range was not used to interpret this result as normal/abnormal . HGB (test code = 14.1 g/dL 11.6-15.0 718-7) HCT (test code = 41.0 % 35.7-45.2 4544-3) MCV (test code = 90.5 fL 80.6-95.5 787-2) MCH (test code = 31.1 pg 25.9-32.8 785-6) MCHC (test code = 34.4 g/dL 31.6-35.1 786-4) RDW-SD (test code = 38.4 fL 39.0-49.9 L 01800-6) RDW-CV (test code = 11.6 % 12.0-15.5 L 788-0) PLT (test code = 339 See_Comment [Automated 777-3) message] The sy stem which generated this result transmitted reference range : 166 - 358 10*3/ ?L. The reference r amy was not used to interpret this result as normal/abnormal . MPV (test code = 9.4 fL 9.5-12.9 L 21419-0) NRBC/100 WBC (test 0.0 See_Comment [Automat ed code = 8504052925) message] The system which generated this result transmitted reference range : 0.0 - 10.0 /100 WBCs. The refer ence range was not u sed to interpret th is result as normal/abnormal . NRBC x10^3 (test code See_Comment [Auto mated = 1917994876) message] The s ystem which generated this result transmitted reference range : 10*3/?L. The reference range was not used to interpret this result as normal/abnormal . GRAN MAT (NEUT) % 68.6 % (test code = 770-8) IMM GRAN % (test code 0.10 % = 5920545660) LYMPH % (test code = 23.2 % 736-9) MONO % (test code = 5.8 % 5905-5) EOS % (test code = 1.9 % 713-8) BASO % (test code = 0.4 % 706-2) GRAN MAT x10^3(ANC) 4.95 10*3/uL 1.88-7.09 (test code = 8195975943) IMM GRAN x10^3 (test 0.00-0.06 code = 2094328188) LYMPH x10^3 (test code 1.68 10*3/uL 1.32-3.29 = 731-0) MONO x10^3 (test code 0.42 10*3/uL 0.33-0.92 = 742-7) EOS x10^3 (test code = 0.14 10*3/uL 0.03-0.39 711-2) BASO x10^3 (test code 0.03 10*3/uL 0.01-0.07 = 704-7) Lab Interpretation Abnormal (test code = 24322-7) [facility] Center[facility]ams[facility] Acid Whole [id number] 19:37:28 Test Item Value Reference Range Interpretation Comments LACTIC ACID (test code = 1.10 mmol/L 0.50-2.20 9345427904) Lab Interpretation (test code = Normal 77576-6) [facility] [id number] 19:20:00 Test Item Value Reference Range Interpretation Comments POCT PREG TEST DATE (test 33110522 code = 3576) POCT PREG LOT # (test code = 3575) [id number] On board controls acceptable with C present Line (test code = 3574) POCT PREG (test code = 1605) negative Lab Interpretation (test code = Normal 51545-8) [facility] URINALYSIS W/O SPECIFIC [id number] 22:35:00 Test Item Value Reference Range Interpretation Comments POCT PH U (test code = 3254) 7 mg/dl 5-8 POCT U LEUK EST (test code = neg Negative - Negative 3263) POCT U NIT (test code = 3262) neg Negative - Negative POCT U PROT (test code = 3259) neg Negative - Negative POCT U GLU (test code = 3256) neg Negative - Negative POCT U KETONE (test code = 3258) neg Negative - Negative POCT U BLD (test code = 3257) neg Negative - Negative [facility] URINALYSIS W/O SPECIFIC [id number] 22:35:00 Test Item Value Reference Range Interpretation Comments POCT PH U (test code = 3254) 7 mg/dl 5-8 POCT U LEUK EST (test code = neg Negative - Negative 3263) POCT U NIT (test code = 3262) neg Negative - Negative POCT U PROT (test code = 3259) neg Negative - Negative POCT U GLU (test code = 3256) neg Negative - Negative POCT U KETONE (test code = 3258) neg Negative - Negative POCT U BLD (test code = 3257) neg Negative - Negative [facility] [id number] 20:03:00 Test Item Value Reference Range Interpretation Comments POCT PREG (test code = Negative 1605) On board controls Yes acceptable with C Line (test code = 3574) POCT PREG LOT # (test code = 3575) POCT PREG TEST DATE (test code = 3576) BAN (test code = BAN) accurate development and interpretation of all internal controls Lab Interpretation Normal (test code = 78042-1) [facility] [id number] 20:03:00 Test Item Value Reference Range Interpretation Comments POCT PREG (test code = Negative 1605) On board controls Yes acceptable with C Line (test code = 3574) POCT PREG LOT # (test code = 3575) POCT PREG TEST DATE (test code = 3576) BAN (test code = BAN) accurate development and interpretation of all internal controls Lab Interpretation Normal (test code = 18692-4) [facility] [id number] 20:03:00 Test Item Value Reference Range Interpretation Comments POCT PREG (test code = Negative 1605) On board controls Yes acceptable with C Line (test code = 3574) POCT PREG LOT # (test code = 3575) POCT PREG TEST DATE (test code = 3576) BAN (test code = ABN) accurate development and interpretation of all internal controls Lab Interpretation Normal (test code = 97514-5) [facility] [id number] 20:03:00 Test Item Value Reference Range Interpretation Comments POCT PREG (test code = Negative 1605) On board controls Yes acceptable with C Line (test code = 3574) POCT PREG LOT # (test code = 3575) POCT PREG TEST DATE (test code = 357) BAN (test code = BAN) accurate development and interpretation of all internal controls Lab Interpretation Normal (test code = 90901-7) [facility] URINALYSIS W SPECIFIC [id number] 19:03:00 Test Item Value Reference Range Interpretation [...] controls Lab Interpretation Abnormal (test code = 09536-5) [facility] URINALYSIS W SPECIFIC [id number] 19:03:00 Test Item Value Reference Range Interpretation [...] controls Lab Interpretation Abnormal (test code = 30850-9) [facility] URINALYSIS W SPECIFIC [id number] 19:03:00 Test Item Value Reference Range Interpretation [...] controls Lab Interpretation Abnormal (test code = 73863-6) [facility] URINALYSIS W SPECIFIC [id number] 19:03:00 Test Item Value Reference Range Interpretation [...] controls Lab Interpretation Abnormal (test code = 09647-1) [facility] URINALYSIS W SPECIFIC [id number] 22:54:00 Test Item Value Reference Range Interpretation [...] controls Lab Interpretation Abnormal (test code = 83327-0) [facility] URINALYSIS W SPECIFIC [id number] 22:54:00 Test Item Value Reference Range Interpretation [...] controls Lab Interpretation Abnormal (test code = 70694-5) [facility]CIFIC [id number] 22:54:00 Test Item Value Reference Range Interpretation [...] controls Lab Interpretation Abnormal (test code = 75758-8) [facility]"
[2022-06-29] MEDS ORDERED: MORPHINE 4 MG/ML SYR ONE (23:40)
[2022-06-29] MEDS ORDERED: METOCLOPRAMIDE 10 MG/2mL INJ ONE (23:40)
[2022-06-29] MEDS ORDERED: NA CHLORIDE 0.9% 50 ML ONE (23:41)
[2022-06-29] MEDS ORDERED: ONDANSETRON 4 MG/2 ML VIAL ONE (23:41)
[2022-06-29] MEDS ORDERED: NA CHLORIDE 0.9% 1,000 ML ONE (23:41)
[2022-06-29] MEDS ORDERED: KETOROLAC 30 MG/ML INJ ONE (23:41)
[2022-06-30 00:19] LABS: Absolute Lymphocytes (CBC) 3.2 K/uL (0.7-4.9); Hematocrit 44.4 % (36.0-45.0); Lymphocytes % 26.6 % (15.3-44.8); MCV 90.3 fL (80-100); MPV 7.2 fL (7.6-11.3); RBC Red Blood Cell Count 4.92 M/uL (3.86-4.86)
[2022-06-30 00:51] LABS: Albumin 4.2 g/dL (3.4-5.0); Bilirubin Total 0.6 mg/dL (0.2-1.0); Potassium 3.4 mmol/L (3.5-5.1); Protein, Total 7.6 g/dL (6.4-8.2)
[2022-06-30 02:04] LABS: Urine Bacteria <20 /HPF (<20); Urine Bilirubin NEGATIVE (Negative); Urine Blood 1+ (Negative); Urine Clarity Clear (Clear); Urine Color Light-Yellow (Yellow); Urine Glucose NEGATIVE (Negative); Urine Mucus 2+ /HPF (None Seen); Urine Protein 1+ (Negative); Urine Urobilinogen Normal (Normal); Urine pH 6.5 (5.0-7.0)
[2022-06-30] MEDS ORDERED: PROMETHAZINE 25 MG TABLET ONE (02:12)
[2022-06-30] MEDS ORDERED: MORPHINE 4 MG/ML SYR ONE (02:12)
[2022-06-30 02:14] LABS: Specific Gravity > 1.030 (1.005-1.030)
[2022-06-30] MEDS ORDERED: D5.45NS W/KCL 20MEQ 1,000 ML IV ONE (02:27)
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
[2022-06-30] MEDS: D5.45NS W/KCL 20MEQ 1,000 ML IV SCH ×2 (03:12→13:16)
[2022-06-30 03:44] VITALS: BMI 34.7
[2022-06-30] MEDS ORDERED: ONDANSETRON 4 MG/2 ML VIAL IV PRN (06:00)
[2022-06-30] MEDS ORDERED: INFLUENZA VACCINE (for 6+ mo) 0.5 ML DOSE IMVAC ONE (08:00)
[2022-06-30] MEDS: CIPROFLOXACIN 400mg IV 400 MG/200 ML BAG IV SCH ×2 (08:08→20:13)
[2022-06-30] MEDS: METRONIDAZOLE 500mg IVPB 500 MG/100 ML BAG IV SCH ×2 (08:08→16:39)
[2022-06-30] MEDS: MORPHINE 2 MG/ML SYR IV PRN ×3 (08:11→20:12)
[2022-06-30 09:03] VITALS: O2SAT 97
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
--- NOTE | 2022-06-30 14:00 | RAD REPORT ---
EXAM DESCRIPTION: RAD - Abdomen W Erect - 06/30/2022 11:04 am CLINICAL HISTORY: sbo COMPARISON: Abdomen Pelvis W Contrast dated 06/30/2022; Abdomen Pelvis W Contrast dated TECHNIQUE: Single AP view of the abdomen. FINDINGS: Stable distention of mid abdominal small bowel, again concerning for small bowel obstructi on. No evidence of free air. No suspicious calcifications. No significant bony abnormality. IMPRESSION: Mid abdominal small bowel distention, again concerning for small bowel obstruction.
--- NOTE | 2022-06-30 15:29 | RAD REPORT ---
EXAM DESCRIPTION: CT - Abdomen Pelvis W Contrast - 06/30/2022 6:54 am CLINICAL HISTORY: 22 years, Female, abd pain, nausea, vomiting, hx of obstruction COMPARISON: 03/29/2022 TECHNIQUE: Contrast-enhanced images of the abdomen and pelvis were performed utilizing 5 mm slice th ickness at 5 mm interval reconstruction from the lung bases to the ischial tuberosities after the adm inistration of IV contrast. In addition multiplanar reformats in the coronal and sagittal plane were obtained and reviewed. This exam was performed according to our departmental dose-optimization protocol, which includes auto mated exposure control, adjustment of the mA and/or kV according to patient size and/or use of iterat adalgisa reconstruction technique. FINDINGS: The lung bases demonstrate minimal dependent atelectatic changes. The liver, gallbladder, pancreas, spleen and adrenal glands demonstrate to be unremarkable, no focal lesions are noted. The kidneys demonstrate normal uptake of contrast media. No evidence for nephrolithiasis and/or hydro nephrosis. Grossly the unopacified stomach demonstrate to be within normal limits. There are slightly prominen t mid abdomen small bowel loops extending up to the level of the right lower quadrant area of the sma ll bowel surgery. There is fecal residue within the right site colon. The site colon is somewhat deco mpressed. The appendix was not visualized. The urinary bladder demonstrate to be unremarkable. The uterus is unremarkable. There are no adnexa l masses. The aorta demonstrate to be normal. There is no retroperitoneal lymphadenopathy. There is no evidence for ascites/or significant abnormal fluid collections. The bone windows demonstrate posterior transpedicular screw fixation device at T12-L3. IMPRESSION: Slightly prominent mid abdomen small bowel loops extending up to the level of the right lower quadrant area of the small bowel surgery. Findings may represent a ileus and/or partial bowel o bstruction. Status post posterior transpedicular screw fixation device at T12-L3. Electronically signed by: Mic Alvarado MD 06/30/2022 1:27 AM CDT Due to temporary technical issues with the PACS/Fluency reporting system, reports are being signed by the in house radiologists without review as a courtesy to insure prompt reporting. The interpreting radiologist is fully responsible for the content of the report.
[2022-06-30 17:38] LABS: Urine Bacteria None Seen /HPF (<20); Urine Bilirubin NEGATIVE (Negative); Urine Blood Negative (Negative); Urine Clarity Clear (Clear); Urine Color Yellow (Yellow); Urine Glucose NEGATIVE (Negative); Urine Mucus 4+ /HPF (None Seen); Urine Protein TRACE (Negative); Urine RBC <5 /HPF (None Seen); Urine Urobilinogen 1+ (Normal); Urine pH 6.5 (5.0-7.0)
[2022-07-01] MEDS: METRONIDAZOLE 500mg IVPB 500 MG/100 ML BAG IV SCH ×2 (00:43→08:17)
[2022-07-01] MEDS: D5.45NS W/KCL 20MEQ 1,000 ML IV SCH ×3 (00:43→21:15)
[2022-07-01 06:09] LABS: Potassium 3.8 mmol/L (3.5-5.1)
[2022-07-01 06:32] LABS: Absolute Lymphocytes (CBC) 2.4 K/uL (0.7-4.9); Hematocrit 34.6 % (36.0-45.0); Lymphocytes % 36.5 % (15.3-44.8); MCV 91.4 fL (80-100); MPV 7.3 fL (7.6-11.3); RBC Red Blood Cell Count 3.79 M/uL (3.86-4.86)
[2022-07-01] MEDS: CIPROFLOXACIN 400mg IV 400 MG/200 ML BAG IV SCH (08:17)
--- NOTE | 2022-07-01 08:31 | RAD REPORT ---
EXAM DESCRIPTION: RAD - Abdomen W Erect - 07/01/2022 8:11 am CLINICAL HISTORY: Abdominal pain FINDINGS: Dilatation of a loop of small bowel within the left abdomen approximately 6 centimeters wi thout significant change. Mild dilatation of additional small bowel overall without significant winter e. Free air is not seen beneath the diaphragm.
--- NOTE | 2022-07-01 08:45 | PN ---
Date of Progress Note: 07/01/2022 Subjective: The patient is awake, alert. Passing gas. Pain is a little better. Objective: Vital Signs: Stable, afebrile. Abdomen: Benign. Laboratory Data: X-rays done today showed improved gas pattern. Assessment: Small bowel obstruction, partial, improving. Recommendations: We will start clear liquids and see how the patient does. Hopefully discharge in 2 4 hours. /MODL Voice ID: [id number] Report ID: [id number]
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
--- NOTE | 2022-07-01 14:12 | RAD REPORT ---
EXAM DESCRIPTION: RAD - Small Bowel Series - 07/01/2022 1:53 pm CLINICAL HISTORY: ileus COMPARISON: Abdomen Pelvis W Contrast dated 06/30/2022; Abdomen W Erect dated 07/01/2022 TECHNIQUE: Serial AP views of the abdomen were obtained for studying the small bowel following oral administration of contrast. FINDINGS: Handle Assembler film shows a nonspecific bowel gas pattern. No obstruction or free air. No suspiciou s calcifications. Gastric size and mucosal fold pattern are normal. No delay in transit of contrast into the small samantha l. Proximal small bowel is normal in diameter. Moderate dilation of distal small bowel, with initial opacification around the 1 hour shira. No mucosal fold thickening. No abnormal filling defects. No int rinsic or extrinsic mass identifiable. Terminal ileum has a normal appearance. Transit time to the co edna is within normal limits, at 3 hours. IMPRESSION: Moderate dilation of distal small bowel without mucosal abnormality. Transit time to the colon is within normal limits, 3 hours, suggesting low grade ileus rather than obstruction.
[2022-07-01] MEDS: MORPHINE 2 MG/ML SYR IV PRN (21:15)
[2022-07-02 04:31] LABS: Potassium 3.8 mEq/L (3.5-5.1)
[2022-07-02] MEDS: D5.45NS W/KCL 20MEQ 1,000 ML IV SCH ×2 (05:12→09:52)
--- NOTE | 2022-07-02 08:58 | PN ---
Date of Progress Note: 07/02/2022 Subjective: Patient is awake, alert, tolerating clear liquids. She had 2 bowel movements last night . She has no abdominal pain. No nausea, vomiting. Objective: Vital Signs: Stable, afebrile. Abdomen: Benign. Assessment: Small bowel obstruction, resolved. Recommendations: Advance diet to full liquids. If she tolerates that, she can follow up. She can b e discharged home and follow up with her GI doctor. I recommended patient not eat heavy meals, small frequent meals is recommended for her. She does state understanding. /MODL Voice ID: [id number] Report ID: [id number]
[2022-07-02 12:55] VITALS: BP 108/72; TEMP 97.6
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
[2022-07-02 14:22] LABS: Hematocrit 39.9 % (36.0-45.0)
== END 2022-07-02 15:40 | disposition home or self-care (01) | DRG 390 ==
LOC: ER 22:59 → INTOOBSV 06-30 02:49 → ERHOLD 06-30 02:49 → OBSVTOIN 06-30 02:49 → 2ND 06-30 02:58 → OBSVTOIN 07-01 09:57
PROVIDERS: ADMIT Internal Medicine; ATTEND Internal Medicine
DX: K56.690 Other partial intestinal obstruction (principal); Z79.899 Other long term (current) drug therapy; Z20.822 Contact with and (suspected) exposure to COVID-19
CPT/HCPCS: 36415; 74019; 74177; 74250; 80048; 80053; 81001; 83690; 85014; 85018; 85025; 96361; 96374; 96375; 99285; G0378; J0744; J2270; J2405; J2765; J7030; Q0169; Q9967; U0003

== ENCOUNTER 2022-09-19 16:53 | Emergency (ER) | payer OTHER ==
--- OUTSIDE RECORDS SUMMARY | 2022-09-19 17:08 | XMS REPORT | Continuity of Care Document ---
:2000 Author Organization [facility] t Address [address] [place] [address] Care Team Providers Name Role Phone Janiya Perez Primary Care Physician [phone] GALINA LIND Attending Clinician Unavailable HENRIETTA SANTOS Attending Clinician Unavailable [facility] Attending Clinician Unavailable Angel Sams MD Attending Clinician ANGEL SAMS Attending Clinician Unavailable Aneta Joseph MD Attending Clinician [phone] Chacha Gomez MD Attending Clinician CHACHA GOMEZ Attending Clinician Unavailable Doctor Unassigned, [place] Attending Clinician Unavailable LILIYA PATEL Attending Clinician Unavailable LILIYA PATEL Attending Clinician Unavailable ZULLY HOLT Attending Clinician Unavailable ELIJAH HERNANDEZ Attending Clinician Unavailable Elijah Hernandez MD Attending Clinician Nurse, [facility] Attending Clinician Unavailable Unknown, Attending Attending Clinician Unavailable Steffany Zapata MD Attending Clinician UNKNOWN, ATTENDING Attending Clinician Unavailable STEFFANY ZAPATA Attending Clinician Unavailable Zully Holt PA-C Attending Clinician Josey Koch MD Attending Clinician JOSEY KOCH Attending Clinician Unavailable Henrietta Santos MD Attending Clinician Ebryder UNDERWRITERMara Attending Clinician Lab, Ang - Db Attending Clinician Unavailable MARA CUEVAS Attending Clinician Unavailable LORENZA CHEW Attending Clinician Unavailable Jeevan UNDERWRITER, Lorenza Vasquez Attending Clinician ROSA ERAZO Attending Clinician Unavailable Kacey UNDERWRITERRosa Attending Clinician 2, [facility] Attending Clinician Unavailable LOKESH MISHRA Attending Clinician Unavailable AMANDA PARKER Attending Clinician Unavailable Lokesh Mishra MD Attending Clinician Vaccine, [facility] Attending Clinician Unavailable Moe Marie DO Attending Clinician MOE MARIE Attending Clinician Unavailable Rachel Sanchez RN Attending Clinician Unavailable Yvon Garcia CRNA Attending Clinician Phill Louie MD Attending Clinician Pob, [facility] Main Attending Clinician Unavailable , [facility] Attending Clinician Unavailable BHARGAV SARABIA Attending Clinician Unavailable Jocelyn Brice Attending Clinician [phone] HETAL HOOK Attending Clinician Unavailable [facility] [...] Unavailable Erika De Leon MD Attending Clinician [phone] Gasper Morton MD Attending Clinician ELIJAH HERNANDEZ Admitting Clinician Unavailable YANETZULLY Admitting Clinician Unavailable HENRIETTA SANTOS Admitting Clinician Unavailable Henrietta Santos MD Admitting Clinician Josey Koch MD Admitting Clinician NATA DINERO Admitting Clinician Unavailable Erika De Leon MD Admitting Clinician [phone] Payers Payer Name Policy Type Policy Number Effective Date Expiration Date S galo MEDICAID PENDING PENDING 2020 00:00:00 Problems Condition Condition Condition Status Onset Resolution Last Treating Co mments Source Name Details Category Date Date Treatment Clinician Date Cysts of Cysts of Disease Active Unive rs both both 4-04 ity of ovaries ovaries 00:00: [address] Branch Pain Pain Disease Active Univers pelvic pelvic 4-04 ity of 00:00: [address] Branch Obesity Obesity Disease Active Univers (BMI (BMI 7-13 ity of 30-39.9) 30-39.9) 00:00: [address] Branch Postoperat Postoperat Disease Active U nivers adalgisa adalgisa 6- it[place] Added automatic ally from request for surgery [id number] Nexplanon Nexplanon Disease Active Uni vers in [...] Active Univers ALLERGIE Class ity of S [facility] Social History Social Habit Start Date Stop Date Quantity Comments Source History SDOH [facility] History SDOH University o f Alcohol Std [place] [facility] Drinks Branch History SDOH University o f Alcohol Binge [place] [facility] al Branch Exposure to 2022-07-31 2022-08-10 Not sure University SARS-CoV-2 00:00:00 08:50:00 [facility] (event) Branch Alcohol intake 2022-08-10 2022-08-10 Current drinker of Un iversity of 00:00:00 00:00:00 alcohol (finding) [facility] Tobacco use and 2021-10-28 2021-10-28 Smokeless tobacco Un iversity of exposure 00:00:00 00:00:00 non-user [facility] Alcohol Comment 2021-08-24 2021-08-24 occasionally Univers ity of 00:00:00 00:00:00 [facility] Sex Assigned At [birth year] Universit y of 00:00:00 00:00:00 [facility] Smoking Status Start Date Stop Date Source Never smoked tobacco [facility] Medications Ordered Filled Start Stop Current Ordering Indication Dosage Frequency Signature Comments Components Source Medication Medication Date Date Medication? Clinician (SIG) Name Name dicyclomine Yes [id number] 10mg Take 1 Univers 10 mg 4-25 [id number] capsule by ity of capsule 00:00: mouth [place] 00 every 6 Medical (six) Branch hours as needed for Abdominal pain. dicyclomine Yes [id number] 10mg Take 1 Univers 10 mg 4-25 [id number] capsule by ity of capsule 00:00: mouth [place] 00 every 6 Medical (six) Branch hours as needed for Abdominal pain. dicyclomine 0 Yes [id number] 10mg Take 1 Univers 10 mg 4-25 [id number] capsule by ity of capsule 00:00: mouth [place] 00 every 6 Medical (six) Branch hours as needed for Abdominal pain. dicyclomine 0 Yes [id number] 10mg Take 1 Univers 10 mg 4-25 [id number] capsule by ity of capsule 00:00: mouth [place] 00 every 6 Medical (six) Branch hours as needed for Abdominal pain. predniSONE 2022- Yes [id number] Take 3 Univers 10 mg 4-25 06-07 [id number] tablets by ity of tablet 00:00: 04:59 mouth [place] 00 :00 daily for Medical 14 days, Branch THEN 2 tablets daily for 14 days, THEN 1 tablet daily for 14 days. predniSONE 2022- Yes [id number] Take 3 Univers 10 mg 4-25 06-07 [id number] tablets by ity of tablet 00:00: 04:59 mouth [place] 00 :00 daily for Medical 14 days, Branch THEN 2 tablets daily for 14 days, THEN 1 tablet daily for 14 days. predniSONE 2022- Yes [id number] Take 3 Univers 10 mg 4-25 06-07 [id number] tablets by ity of tablet 00:00: 04:59 mouth [place] 00 :00 daily for Medical 14 days, Branch THEN 2 tablets daily for 14 days, THEN 1 tablet daily for 14 days. predniSONE 2022- Yes [id number] Take 3 Univers 10 mg 4-25 06-07 [id number] tablets by ity of tablet 00:00: 04:59 mouth [place] 00 :00 daily for Medical 14 days, Branch THEN 2 tablets daily for 14 days, THEN 1 tablet daily for 14 days. omeprazole 0 Yes [id number] 20mg Take 1 Univers 20 mg 4-05 [id number] capsule by ity of capsule 00:00: mouth in [place] 00 the Medical morning. Branch azaTHIOprin 0 Yes [id number] 50mg Take 1 Univers e 50 mg 4-05 [id number] tablet by ity of tablet 00:00: mouth in [place] 00 the Medical morning. Branch omeprazole 3-0 Yes [id number] 20mg Take 1 Univers 20 mg 4-05 [id number] capsule by ity of capsule 00:00: mouth in [place] 00 the Medical morning. Branch azaTHIOprin 3-0 Yes [id number] 50mg Take 1 Univers e 50 mg 4-05 [id number] tablet by ity of tablet 00:00: mouth in [place] 00 the Medical morning. Branch omeprazole 3-0 Yes [id number] 20mg Take 1 Univers 20 mg 4-05 [id number] capsule by ity of capsule 00:00: mouth in [place] 00 the Medical morning. Branch azaTHIOprin 3-0 Yes [id number] 50mg Take 1 Univers e 50 mg 4-05 16072 tablet by ity of tablet 00:00: mouth in [place] 00 the Medical morning. Branch omeprazole 3-0 Yes [id number] 20mg Take 1 Univers 20 mg 4-05 [id number] capsule by ity of capsule 00:00: mouth in [place] 00 the Medical morning. Branch azaTHIOprin 3-0 Yes [id number] 50mg Take 1 Univers e 50 mg 4-05 [id number] tablet by ity of tablet 00:00: mouth in [place] the Medical morning. Branch omeprazole 3-0 Yes [id number] 20mg Take 1 Univers 20 mg 4-05 [id number] capsule by ity of capsule 00:00: mouth in [place] the Medical morning. Branch azaTHIOprin 3-0 Yes [id number] 50mg Take 1 Univers e 50 mg 4-05 [id number] tablet by ity of tablet 00:00: mouth in [place] 00 the Medical morning. Branch omeprazole 3-0 Yes [id number] 20mg Take 1 Univers 20 mg 4-05 [id number] capsule by ity of capsule 00:00: mouth in [place] 00 the Medical morning. Branch azaTHIOprin 3-0 Yes [id number] 50mg Take 1 Univers e 50 mg 4-05 [id number] tablet by ity of tablet 00:00: mouth in [place] 00 the Medical morning. Branch omeprazole 2023-0 Yes [id number] 20mg Take 1 Univers 20 mg 4-05 [id number] capsule by ity of capsule 00:00: mouth in [place] 00 the Medical morning. Branch azaTHIOprin 2023-0 Yes [id number] 50mg Take 1 Univers e 50 mg 4-05 [id number] tablet by ity of tablet 00:00: mouth in [place] 00 the Medical morning. Branch azaTHIOprin 3-0 Yes [id number] 50mg Take 1 Univers e 50 mg 3-31 [id number] tablet by ity of tablet 00:00: mouth in [place] 00 the Medical morning. Branch azaTHIOprin 3-0 Yes [id number] 50mg Take 1 Univers e 50 mg 3-31 [id number] tablet by ity of tablet 00:00: mouth in [place] 00 the Medical morning. Branch azaTHIOprin 3-0 Yes [id number] 50mg Take 1 Univers e 50 mg 3-31 [id number] tablet by ity of tablet 00:00: mouth in [place] 00 the Medical morning. Branch azaTHIOprin 3-0 2023- No [id number] 50mg Take 1 Univers e 50 mg 3-31 -05 [id number] tablet by ity o f tablet 00:00: 00:00 mouth in [place] 00 :00 the Medical morning. Branch dicyclomine 3-0 Yes [id number] 10mg Take 1 Univers 10 mg 3-21 [id number] capsule by ity of capsule 00:00: mouth [place] 00 every 6 Medical (six) Branch hours as needed for Abdominal pain. dicyclomine 3-0 Yes [id number] 10mg Take 1 Univers 10 mg 3-21 [id number] capsule by ity of capsule 00:00: mouth [place] 00 every 6 Medical (six) Branch hours as needed for Abdominal pain. dicyclomine 3-0 Yes [id number] 10mg Take 1 Univers 10 mg 3-21 [id number] capsule by ity of capsule 00:00: mouth [place] 00 every 6 Medical (six) Branch hours as needed for Abdominal pain. dicyclomine 3-0 Yes [id number] 10mg Take 1 Univers 10 mg 3-21 [id number] capsule by ity of capsule 00:00: mouth [place] 00 every 6 Medical (six) Branch hours as needed for Abdominal pain. dicyclomine 2023-0 Yes [id number] 10mg Take 1 Univers 10 mg 3-21 [id number] capsule by ity of capsule 00:00: mouth [place] 00 every 6 Medical (six) Branch hours as needed for Abdominal pain. dicyclomine 2023-0 Yes [id number] 10mg Take 1 Univers 10 mg 3-21 [id number] capsule by ity of capsule 00:00: mouth [place] 00 every 6 Medical (six) Branch hours as needed for Abdominal pain. dicyclomine 3-0 Yes [id number] 10mg Take 1 Univers 10 mg 3-21 [id number] capsule by ity of capsule 00:00: mouth [place] 00 every 6 Medical (six) Branch hours as needed for Abdominal pain. dicyclomine 3-0 Yes [id number] 10mg Take 1 Univers 10 mg 3-21 [id number] capsule by ity of capsule 00:00: mouth [place] 00 every 6 Medical (six) Branch hours as needed for Abdominal pain. dicyclomine 3-0 Yes [id number] 10mg Take 1 Univers 10 mg 3-21 [id number] capsule by ity of capsule 00:00: mouth [place] 00 every 6 Medical (six) Branch hours as needed for Abdominal pain. dicyclomine 3-0 Yes [id number] 10mg Take 1 Univers 10 mg 3-21 [id number] capsule by ity of capsule 00:00: mouth [place] 00 every 6 Medical (six) Branch hours as needed for Abdominal pain. dicyclomine 3-0 Yes [id number] 10mg Take 1 Univers 10 mg 3-21 [id number] capsule by ity of capsule 00:00: mouth [place] 00 every 6 Medical (six) Branch hours as needed for Abdominal pain. dicyclomine 3-0 Yes [id number] 10mg Take 1 Univers 10 mg 3-21 [id number] capsule by ity of capsule 00:00: mouth [place] 00 every 6 Medical (six) Branch hours as needed for Abdominal pain. dicyclomine 3-0 Yes [id number] 10mg Take 1 Univers 10 mg 3-21 [id number] capsule by ity of capsule 00:00: mouth [place] 00 every 6 Medical (six) Branch hours as needed for Abdominal pain. dicyclomine 3-0 Yes [id number] 10mg Take 1 Univers 10 mg 3-21 [id number] capsule by ity of capsule 00:00: mouth [place] 00 every 6 Medical (six) Branch hours as needed for Abdominal pain. omeprazole 3-0 3- Yes [id number] 20mg Take 1 Univers 20 mg 3-21 06-20 [id number] capsule by ity of capsule 00:00: 04:59 mouth in [place] 00 :00 the Medical morning Branch for 90 days. omeprazole 3-0 3- Yes [id number] 20mg Take 1 Univers 20 mg 3-21 06-20 [id number] capsule by ity of capsule 00:00: 04:59 mouth in [place] 00 :00 the Medical morning Branch for 90 days. omeprazole 2022- Yes [id number] 20mg Take 1 Univers 20 mg 3-21 06-20 [id number] capsule by ity of capsule 00:00: 04:59 mouth in [place] 00 :00 the Medical morning Branch for 90 days. omeprazole 2022- Yes [id number] 20mg Take 1 Univers 20 mg 3-21 06-20 [id number] capsule by ity of capsule 00:00: 04:59 mouth in [place] 00 :00 the Medical morning Branch for 90 days. omeprazole 2022- Yes [id number] 20mg Take 1 Univers 20 mg 3-21 -20 [id number] capsule by ity of capsule 00:00: 04:59 mouth in [place] 00 :00 the Medical morning Branch for 90 days. omeprazole 2022- Yes [id number] 20mg Take 1 Univers 20 mg 3-21 -20 [id number] capsule by ity of capsule 00:00: 04:59 mouth in [place] 00 :00 the Medical morning Branch for 90 days. omeprazole 2022- Yes [id number] 20mg Take 1 Univers 20 mg 3-21 -20 [id number] capsule by ity of capsule 00:00: 04:59 mouth in [place] 00 :00 the Medical morning Branch for 90 days. omeprazole 2022- Yes [id number] 20mg Take 1 Univers 20 mg 3-21 -20 [id number] capsule by ity of capsule 00:00: 04:59 mouth in [place] 00 :00 the Medical morning Branch for 90 days. omeprazole 2022- Yes [id number] 20mg Take 1 Univers 20 mg 3-21 06-20 [id number] capsule by ity of capsule 00:00: 04:59 mouth in [place] 00 :00 the Medical morning Branch for 90 days. omeprazole 0 2022- Yes [id number] 20mg Take 1 Univers 20 mg 3-21 06-20 [id number] capsule by ity of capsule 00:00: 04:59 mouth in [place] 00 :00 the Medical morning Branch for 90 days. omeprazole 2022- Yes [id number] 20mg Take 1 Univers 20 mg 3-21 -20 [id number] capsule by ity of capsule 00:00: 04:59 mouth in [place] 00 :00 the Medical morning Branch for 90 days. predniSONE 2022- Yes [id number] Take 4 Univers 10 mg 3-21 05-12 [id number] tablets by ity of tablet 00:00: 04:59 mouth [place] 00 :00 daily for Medical 30 days, Branch THEN 3 tablets daily for 7 days, THEN 2 tablets daily for 7 days, THEN 1 tablet daily for 7 days. predniSONE 2022- Yes [id number] Take 4 Univers 10 mg 3-21 -12 [id number] tablets by ity of tablet 00:00: 04:59 mouth [place] 00 :00 daily for Medical 30 days, Branch THEN 3 tablets daily for 7 days, THEN 2 tablets daily for 7 days, THEN 1 tablet daily for 7 days. predniSONE 2022- Yes [id number] Take 4 Univers 10 mg 3-21 -12 [id number] tablets by ity of tablet 00:00: 04:59 mouth [place] 00 :00 daily for Medical 30 days, Branch THEN 3 tablets daily for 7 days, THEN 2 tablets daily for 7 days, THEN 1 tablet daily for 7 days. predniSONE 2022- Yes [id number] Take 4 Univers 10 mg 3-21 -12 [id number] tablets by ity of tablet 00:00: 04:59 mouth [place] 00 :00 daily for Medical 30 days, Branch THEN 3 tablets daily for 7 days, THEN 2 tablets daily for 7 days, THEN 1 tablet daily for 7 days. predniSONE 2022- Yes [id number] Take 4 Univers 10 mg 3-21 -12 [id number] tablets by ity of tablet 00:00: 04:59 mouth [place] 00 :00 daily for Medical 30 days, Branch THEN 3 tablets daily for 7 days, THEN 2 tablets daily for 7 days, THEN 1 tablet daily for 7 days. predniSONE 2022- Yes [id number] Take 4 Univers 10 mg 3-21 05-12 [id number] tablets by ity of tablet 00:00: 04:59 mouth [place] 00 :00 daily for Medical 30 days, Branch THEN 3 tablets daily for 7 days, THEN 2 tablets daily for 7 days, THEN 1 tablet daily for 7 days. predniSONE 2022- Yes [id number] Take 4 Univers 10 mg 3-21 05-12 [id number] tablets by ity of tablet 00:00: 04:59 mouth [place] 00 :00 daily for Medical 30 days, Branch THEN 3 tablets daily for 7 days, THEN 2 tablets daily for 7 days, THEN 1 tablet daily for 7 days. predniSONE 2022- Yes [id number] Take 4 Univers 10 mg 3-21 05-12 [id number] tablets by ity of tablet 00:00: 04:59 mouth [place] 00 :00 daily for Medical 30 days, Branch THEN 3 tablets daily for 7 days, THEN 2 tablets daily for 7 days, THEN 1 tablet daily for 7 days. predniSONE 2022- Yes [id number] Take 4 Univers 10 mg 3-21 05-12 [id number] tablets by ity of tablet 00:00: 04:59 mouth [place] 00 :00 daily for Medical 30 days, Branch THEN 3 tablets daily for 7 days, THEN 2 tablets daily for 7 days, THEN 1 tablet daily for 7 days. predniSONE 2022- Yes [id number] Take 4 Univers 10 mg 3-21 05-12 [id number] tablets by ity of tablet 00:00: 04:59 mouth [place] 00 :00 daily for Medical 30 days, Branch THEN 3 tablets daily for 7 days, THEN 2 tablets daily for 7 days, THEN 1 tablet daily for 7 days. predniSONE 2022- Yes [id number] Take 4 Univers 10 mg 3-21 05-12 [id number] tablets by ity of tablet 00:00: 04:59 mouth [place] 00 :00 daily for Medical 30 days, Branch THEN 3 tablets daily for 7 days, THEN 2 tablets daily for 7 days, THEN 1 tablet daily for 7 days. predniSONE 2022- Yes [id number] Take 4 Univers 10 mg 3-21 05-12 [id number] tablets by ity of tablet 00:00: 04:59 mouth [place] 00 :00 daily for Medical 30 days, Branch THEN 3 tablets daily for 7 days, THEN 2 tablets daily for 7 days, THEN 1 tablet daily for 7 days. predniSONE 2022- Yes [id number] Take 4 Univers 10 mg 3-21 05-12 [id number] tablets by ity of tablet 00:00: 04:59 mouth [place] 00 :00 daily for Medical 30 days, Branch THEN 3 tablets daily for 7 days, THEN 2 tablets daily for 7 days, THEN 1 tablet daily for 7 days. predniSONE 2022- Yes [id number] Take 4 Univers 10 mg 3-21 05-12 [id number] tablets by ity of tablet 00:00: 04:59 mouth [place] 00 :00 daily for Medical 30 days, Branch THEN 3 tablets daily for 7 days, THEN 2 tablets daily for 7 days, THEN 1 tablet daily for 7 days. predniSONE 2022- Yes [id number] Take 4 Univers 10 mg 3-21 05-12 [id number] tablets by ity of tablet 00:00: 04:59 mouth [place] 00 :00 daily for Medical 30 days, Branch THEN 3 tablets daily for 7 days, THEN 2 tablets daily for 7 days, THEN 1 tablet daily for 7 days. predniSONE 2022- Yes [id number] Take 4 Univers 10 mg 3-21 05-12 [id number] tablets by ity of tablet 00:00: 04:59 mouth [place] 00 :00 daily for Medical 30 days, Branch THEN 3 tablets daily for 7 days, THEN 2 tablets daily for 7 days, THEN 1 tablet daily for 7 days. predniSONE 2022- Yes [id number] Take 4 Univers 10 mg 3-21 -12 [id number] tablets by ity of tablet 00:00: 04:59 mouth [place] 00 :00 daily for Medical 30 days, Branch THEN 3 tablets daily for 7 days, THEN 2 tablets daily for 7 days, THEN 1 tablet daily for 7 days. predniSONE 2022- Yes [id number] Take 4 Univers 10 mg 3-21 05-12 [id number] tablets by ity of tablet 00:: 04:59 mouth [place] 00 :00 daily for Medical 30 days, Branch THEN 3 tablets daily for 7 days, THEN 2 tablets daily for 7 days, THEN 1 tablet daily for 7 days. dicyclomine 2022- No [id number] 10mg Take 1 Univers 10 mg 3-21 -25 [id number] capsule by ity of capsule 00:00: 00:00 mouth [place] 00 :00 every 6 Medical (six) Branch hours as needed for Abdominal pain. dicyclomine 2022- No [id number] 10mg Take 1 Univers 10 mg 3-21 -25 [id number] capsule by ity of capsule 00:00: 00:00 mouth [place] 00 :00 every 6 Medical (six) Branch hours as needed for Abdominal pain. dicyclomine 3-0 3- No [id number] 10mg Take 1 Univers 10 mg 3-08-1000 capsule by ity of capsule 00:00: 00:00 mouth [place] 00 :00 every 6 Medical (six) Branch hours as needed for Abdominal pain. omeprazole 3-0 3- No [id number] 20mg Take 1 Univers 20 mg 3-07-2100 capsule by ity of capsule 00:00: 00:00 mouth in [place] 00 :00 the Medical morning Branch for 90 days. solifenacin 2023-0 Yes [id number] 10mg Take 1 Univers (VESICARE) 3-10 tablet by ity of 10 mg 00:00: mouth in [place] tablet 00 the Medical morning. Branch solifenacin 2023-0 Yes [id number] 10mg Take 1 Univers (VESICARE) 3-10 tablet by ity of 10 mg 00:00: mouth in [place] tablet 00 the Medical morning. Branch solifenacin 2023-0 Yes [id number] 10mg Take 1 Univers (VESICARE) 3-10 tablet by ity of 10 mg 00:00: mouth in [place] tablet 00 the Medical morning. Branch solifenacin 2023-0 Yes [id number] 10mg Take 1 Univers (VESICARE) 3-10 tablet by ity of 10 mg 00:00: mouth in [place] tablet 00 the Medical morning. Branch solifenacin 2023-0 Yes [id number] 10mg Take 1 Univers (VESICARE) 3-10 tablet by ity of 10 mg 00:00: mouth in [place] tablet 00 the Medical morning. Branch solifenacin 2023-0 Yes [id number] 10mg Take 1 Univers (VESICARE) 3-10 tablet by ity of 10 mg 00:00: mouth in [place] tablet 00 the Medical morning. Branch solifenacin 2023-0 Yes [id number] 10mg Take 1 Univers (VESICARE) 3-10 tablet by ity of 10 mg 00:00: mouth in [place] tablet 00 the Medical morning. Branch solifenacin 2023-0 Yes [id number] 10mg Take 1 Univers (VESICARE) 3-10 tablet by ity of 10 mg 00:00: mouth in [place] tablet 00 the Medical morning. Branch solifenacin 2023-0 Yes [id number] 10mg Take 1 Univers (VESICARE) 3-10 tablet by ity of 10 mg 00:00: mouth in [place] tablet 00 the Medical morning. Branch solifenacin 2023-0 Yes [id number] 10mg Take 1 Univers (VESICARE) 3-10 tablet by ity of 10 mg 00:00: mouth in [place] tablet 00 the Medical morning. Branch solifenacin 2023-0 Yes [id number] 10mg Take 1 Univers (VESICARE) 3-10 tablet by ity of 10 mg 00:00: mouth in [place] tablet 00 the Medical morning. Branch solifenacin 2023-0 Yes [id number] 10mg Take 1 Univers (VESICARE) 3-10 tablet by ity of 10 mg 00:00: mouth in [place] tablet 00 the Medical morning. Branch solifenacin 2023-0 Yes [id number] 10mg Take 1 Univers (VESICARE) 3-10 tablet by ity of 10 mg 00:00: mouth in [place] tablet 00 the Medical morning. Branch solifenacin 2023-0 Yes [id number] 10mg Take 1 Univers (VESICARE) 3-10 tablet by ity of 10 mg 00:00: mouth in [place] tablet 00 the Medical morning. Branch solifenacin 2023-0 Yes [id number] 10mg Take 1 Univers (VESICARE) 3-10 tablet by ity of 10 mg 00:00: mouth in [place] tablet 00 the Medical morning. Branch solifenacin 2023-0 Yes [id number] 10mg Take 1 Univers (VESICARE) 3-10 tablet by ity of 10 mg 00:00: mouth in [place] tablet 00 the Medical morning. Branch solifenacin 2023-0 Yes [id number] 10mg Take 1 Univers (VESICARE) 3-10 tablet by ity of 10 mg 00:00: mouth in [place] tablet 00 the Medical morning. Branch solifenacin 2023-0 Yes [id number] 10mg Take 1 Univers (VESICARE) 3-10 tablet by ity of 10 mg 00:00: mouth in [place] tablet 00 the Medical morning. Branch solifenacin 2023-0 Yes [id number] 10mg Take 1 Univers (VESICARE) 3-10 tablet by ity of 10 mg 00:00: mouth in [place] tablet 00 the Medical morning. Branch solifenacin 2023-0 Yes [id number] 10mg Take 1 Univers (VESICARE) 3-10 tablet by ity of 10 mg 00:00: mouth in [place] tablet 00 the Medical morning. Branch solifenacin 2023-0 Yes [id number] 10mg Take 1 Univers (VESICARE) 3-10 tablet by ity of 10 mg 00:00: mouth in [place] tablet 00 the Medical morning. Branch solifenacin 2023-0 Yes [id number] 10mg Take 1 Univers (VESICARE) 3-10 tablet by ity of 10 mg 00:00: mouth in [place] tablet 00 the Medical morning. Branch solifenacin 2023-0 Yes [id number] 10mg Take 1 Univers (VESICARE) 3-10 tablet by ity of 10 mg 00:00: mouth in [place] tablet 00 the Medical morning. Branch solifenacin 2023-0 Yes [id number] 10mg Take 1 Univers (VESICARE) 3-10 tablet by ity of 10 mg 00:00: mouth in [place] tablet 00 the Medical morning. Branch FENTanyl PF 2022-0 2022- No 75ug 75 mcg, Un shobha (SUBLIMAZE 06-22 Slow IV ity o f (PF)) 23:45: 22:58 Push, [place] injection 00 :00 ONCE, 1 Medical 75 mcg dose, On [facility] Tue06/22/22 at 1745, STAT iopamidol 2022- No [id number] 87mL 87 mL, Univers (ISOVUE 06-22 Intravenou ity o f 370-500 mL) 22:00: 22:00 s, ONCE, 1 [place] injection 00 :00 dose, On Medica l 87 mL Tue06/22/22 Branch at 1600, Routine FENTanyl PF 2022-2022- No 75ug 75 mcg, Un shobha (SUBLIMAZE 06-22 Slow IV ity o f (PF)) 20:30: 19:35 Push, [place] injection 00 :00 ONCE, 1 Medical 75 mcg dose, On Branch Tue06/22/22 at 1430, STAT metoclopram 2022-0 2023- No 10mg 10 mg, Uni vers marco HCl 06-22 03-07 Slow IV ity of (REGLAN) 19:30: 19:31 Push, [place] injection 00 :00 ONCE, 1 Medical 10 mg dose, On Branch 06/22/22 at 1330, [place] traMADoL 50 2022-0 Yes [id number] 50mg Take 1 Univ ers mg tablet 3-07 tablet by ity o f 00:00: mouth [place] 00 every 6 Medical (six) Branch hours as needed for Pain (scale 4-6). Indication s: acute pain methylPREDN 2022-0 Yes [id number] Take by [employer] 4 06-22 mouth ity of mg tablets 00:00: [place]-INSTRU [place] 00 CTIONS. Medical follow Branch package directions traMADoL 50 2022-0 Yes [id number] 50mg Take 1 Univ ers mg tablet 3-07 tablet by ity o f 00:00: mouth [place] 00 every 6 Medical (six) Branch hours as needed for Pain (scale 4-6). Indication s: acute pain methylPREDN 2022-0 Yes [id number] Take by [employer] 4 06-22 mouth ity of mg tablets 00:00: [place]-INSTRU [place] 00 CTIONS. Medical follow Branch package directions traMADoL 50 2022-0 Yes [id number] 50mg Take 1 Univ ers mg tablet 3-07 tablet by ity o f 00:00: mouth [place] 00 every 6 Medical (six) Branch hours as needed for Pain (scale 4-6). Indication s: acute pain methylPREDN 2022-0 Yes [id number] Take by [employer] 4 06-22 mouth ity of mg tablets 00:00: SEE-INSTRU [place] 00 CTIONS. Medical follow Branch package directions traMADoL 50 2022-0 Yes [id number] 50mg Take 1 Univ ers mg tablet 3-07 tablet by ity o f 00:00: mouth [place] 00 every 6 Medical (six) Branch hours as needed for Pain (scale 4-6). Indication s: acute pain methylPREDN 2022-0 Yes [id number] Take by [email or web address] 4 06-22 [id number] mouth ity of mg tablets 00:00: SEE-INSTRU [place] 00 CTIONS. Medical follow Branch package directions traMADoL 50 2022-0 Yes [id number] 50mg Take 1 Univ ers mg tablet 3-07 tablet by ity o f 00:00: mouth [place] 00 every 6 Medical (six) Branch hours as needed for Pain (scale 4-6). Indication s: acute pain methylPREDN 2022-0 Yes [id number] Take by [facility] 4 06-22 [id number] mouth ity of mg tablets 00:00: SEE-INSTRU [place] 00 CTIONS. Medical follow Branch package directions traMADoL 50 2022-0 Yes [id number] 50mg Take 1 Univ ers mg tablet 3-07 tablet by ity o f 00:00: mouth [place] 00 every 6 Medical (six) Branch hours as needed for Pain (scale 4-6). Indication s: acute pain traMADoL 50 2022-0 Yes [id number] 50mg Take 1 Univ ers mg tablet 3-07 tablet by ity o f 00:00: mouth [place] 00 every 6 Medical (six) Branch hours as needed for Pain (scale 4-6). Indication s: acute pain traMADoL 50 2022-0 Yes [id number] 50mg Take 1 Univ ers mg tablet 3-07 tablet by ity o f 00:00: mouth [place] 00 every 6 Medical (six) Branch hours as needed for Pain (scale 4-6). Indication s: acute pain traMADoL 50 2022-0 Yes [id number] 50mg Take 1 Univ ers mg tablet 3-07 tablet by ity o f 00:00: mouth [place] 00 every 6 Medical (six) Branch hours as needed for Pain (scale 4-6). Indication s: acute pain traMADoL 50 2022-0 Yes [id number] 50mg Take 1 Univ ers mg tablet 3-07 tablet by ity o f 00:00: mouth [place] 00 every 6 Medical (six) Branch hours as needed for Pain (scale 4-6). Indication s: acute pain traMADoL 50 2022-0 Yes [id number] 50mg Take 1 Univ ers mg tablet 3-07 tablet by ity o f 00:00: mouth [place] 00 every 6 Medical (six) Branch hours as needed for Pain (scale 4-6). Indication s: acute pain traMADoL 50 2022-0 Yes [id number] 50mg Take 1 Univ ers mg tablet 3-07 tablet by ity o f 00:00: mouth [place] 00 every 6 Medical (six) Branch hours as needed for Pain (scale 4-6). Indication s: acute pain traMADoL 50 2022-0 Yes [id number] 50mg Take 1 Univ ers mg tablet 3-07 tablet by ity o f 00:00: mouth [place] 00 every 6 Medical (six) Branch hours as needed for Pain (scale 4-6). Indication s: acute pain traMADoL 50 2022-0 Yes [id number] 50mg Take 1 Univ ers mg tablet 3-07 tablet by ity o f 00:00: mouth [place] 00 every 6 Medical (six) Branch hours as needed for Pain (scale 4-6). Indication s: acute pain traMADoL 50 2022-0 Yes [id number] 50mg Take 1 Univ ers mg tablet 3-07 tablet by ity o f 00:00: mouth [place] 00 every 6 Medical (six) Branch hours as needed for Pain (scale 4-6). Indication s: acute pain traMADoL 50 2022-0 Yes [id number] 50mg Take 1 Univ ers mg tablet 3-07 tablet by ity o f 00:00: mouth [place] 00 every 6 Medical (six) Branch hours as needed for Pain (scale 4-6). Indication s: acute pain traMADoL 50 2022-0 Yes [id number] 50mg Take 1 Univ ers mg tablet 3-07 tablet by ity o f 00:00: mouth [place] 00 every 6 Medical (six) Branch hours as needed for Pain (scale 4-6). Indication s: acute pain traMADoL 50 2022-0 Yes [id number] 50mg Take 1 Univ ers mg tablet 3-07 tablet by ity o f 00:00: mouth [place] 00 every 6 Medical (six) Branch hours as needed for Pain (scale 4-6). Indication s: acute pain traMADoL 50 2022-0 Yes [id number] 50mg Take 1 Univ ers mg tablet 3-07 tablet by ity o f 00:00: mouth [place] 00 every 6 Medical (six) Branch hours as needed for Pain (scale 4-6). Indication s: acute pain traMADoL 50 3-0 Yes [id number] 50mg Take 1 Univ ers mg tablet 3-07 tablet by ity o f 00:00: mouth [place] 00 every 6 Medical (six) Branch hours as needed for Pain (scale 4-6). Indication s: acute pain traMADoL 50 2022-0 Yes [id number] 50mg Take 1 Univ ers mg tablet 3-07 tablet by ity o f 00:00: mouth [place] 00 every 6 Medical (six) Branch hours as needed for Pain (scale 4-6). Indication s: acute pain traMADoL 50 2022-0 Yes [id number] 50mg Take 1 Univ ers mg tablet 3-07 tablet by ity o f 00:00: mouth [place] 00 every 6 Medical (six) Branch hours as needed for Pain (scale 4-6). Indication s: acute pain traMADoL 50 2022-0 Yes [id number] 50mg Take 1 Univ ers mg tablet 3-07 tablet by ity o f 00:00: mouth [place] 00 every 6 Medical (six) Branch hours as needed for Pain (scale 4-6). Indication s: acute pain traMADoL 50 2022-0 Yes [id number] 50mg Take 1 Univ ers mg tablet 3-07 tablet by ity o f 00:00: mouth [place] 00 every 6 Medical (six) Branch hours as needed for Pain (scale 4-6). Indication s: acute pain traMADoL 50 2022-0 Yes [id number] 50mg Take 1 Univ ers mg tablet 3-07 tablet by ity o f 00:00: mouth [place] 00 every 6 Medical (six) Branch hours as needed for Pain (scale 4-6). Indication s: acute pain methylPREDN 2022-0 3- No [id number] Take by [place] [id number] 06-22 mouth ity of mg tablets 00:00: 00:00 SEE-INSTRU [place] 00 :00 CTIONS. Medical follow Branch package directions methylPREDN 3-0 3- No [id number] Take by [place] [id number] 06-22 [id number] mouth ity of mg tablets 00:00: 00:00 SEE-INSTRU [place] 00 :00 CTIONS. Medical follow Branch package directions methylPREDN 3-0 2023- No [id number] Take by [place] [id number] 06-22 [id number] mouth ity of mg tablets 00:00: 00:00 SEE-INSTRU [place] 00 :00 CTIONS. Medical follow Branch package directions methylPREDN 3-0 2023- No [id number] Take by [place] [id number] 06-22 [id number] mouth ity of mg tablets 00:00: 00:00 SEE-INSTRU [place] 00 :00 CTIONS. Medical follow Branch package directions cyclobenzap 3-0 2023- No 10mg Take 10 mg Univers rine 10 mg 05-19 by mouth ity of tablet 10:09: 00:00 as needed [place] 21 :00 for Muscle Medical Spasms. Branch cyclobenzap 2022- No 10mg Take 10 mg Univers rine 10 mg 05-19 by mouth ity of tablet 10:09: 00:00 as needed [place] 21 :00 for Muscle Medical Spasms. Branch solifenacin 2022- No [id number] 10mg Take 1 Univers (VESICARE) 05-19 tablet by ity of 10 mg 00:00: 05:59 mouth in [place] tablet 00 :00 the Medical morning Branch for 30 days. solifenacin 2022- No [id number] 10mg Take 1 Univers (VESICARE) 05-19 tablet by ity of 10 mg 00:00: 05:59 mouth in [place] tablet 00 :00 the Medical morning Branch for 30 days. solifenacin 2022- No [id number] 10mg Take 1 Univers (VESICARE) 05-19 tablet by ity of 10 mg 00:00: 05:59 mouth in [place] tablet 00 :00 the Medical morning Branch for 30 days. fluconazole 2022- No [id number] 150mg Take 1 Univers (DIFLUCAN) 05-18 tablet [...] Muscle Medical Spasms. Branch fluconazole 2021-04- No [id number] 150mg Take 1 Univers (DIFLUCAN) 2-12 12-13 tablet by ity of 150 mg 00:00: 05:59 mouth [place] tablet 00 :00 now for 1 Medical dose. Branch fluconazole 2021-04- No [id number] 150mg Take 1 Univers (DIFLUCAN) 05-30 tablet by ity of 150 mg 00:00: 05:59 mouth [place] tablet 00 :00 now for 1 Medical dose. Branch fluconazole 2021-04- No [id number] 150mg Take 1 Univers (DIFLUCAN) 05-30- tablet by ity of 150 mg 00:00: 05:59 mouth [place] tablet 00 :00 now for 1 Medical dose. Branch ampicillin 2021-04- No [id number] 500mg Take 1 Univers 500 mg 05-29 capsule by ity of capsule 00:00: 05:59 mouth [place] 00 :00 every 6 Medical (six) Branch hours for 7 days. ampicillin 2021-04- No [id number] 500mg Take 1 Univers 500 mg 05-29 capsule by ity of capsule 00:00: 05:59 mouth [place] 00 :00 every 6 Medical (six) Branch hours for 7 days. ampicillin 2021-04- No [id number] 500mg Take 1 Univers 500 mg 05-29 capsule by ity of capsule 00:00: 05:59 mouth [place] 00 :00 every 6 Medical (six) Branch hours for 7 days. ampicillin 2021-04- No [id number] 500mg Take 1 Univers 500 mg 05-29 capsule by ity of capsule 00:00: 05:59 mouth [place] 00 :00 every 6 Medical (six) Branch hours for 7 days. ampicillin 2021-04- No [id number] 500mg Take 1 Univers 500 mg 05-29 capsule by ity of capsule 00:00: 05:59 mouth [place] 00 :00 every 6 Medical (six) Branch hours for 7 days. ampicillin 2021-04- No [id number] 500mg Take 1 Univers 500 mg 05-29 capsule by ity of capsule 00:00: 05:59 mouth [place] 00 :00 every 6 Medical (six) Branch hours for 7 days. triamcinolo 2021-04- No [id number] 40mg Univers ne 04-28 ity of acetonide 20:15: 19:31 [place] (KENALOG) 00 :00 Medical injection Branch 40 mg triamcinolo 2021-04- No [id number] 40mg 40 mg, Univers ne 04-28 Intramuscu ity of acetonide 20:15: 19:31 lar, ONCE, [place] (KENALOG) 00 :00 1 dose, On Medi suleiman injection Fri Branch 40 mg 02/26/22 at 1415, Routine triamcinolo 2021-04- No [id number] 40mg Univers ne 04-28 ity of acetonide 20:15: 19:31 [place] (KENALOG) 00 :00 Medical injection Branch 40 mg triamcinolo 2021-04- No [id number] 40mg 40 mg, Univers ne 04-28 Intramuscu ity of acetonide 20:15: 19:31 lar, ONCE, [place] (KENALOG) 00 :00 1 dose, On Medi suleiman injection Fri Branch 40 mg 02/26/22 at 1415, Routine triamcinolo 2021-04 Yes [id number] Apply to Univers ne 1-11 area(s) 2 ity of acetonide 00:00: (two) [place] 0.1 % 00 times Medical ointment daily. Branch triamcinolo 2021-04 Yes [id number] Apply to Univers ne 1-11 area(s) 2 ity of acetonide 00:00: (two) [place] 0.1 % 00 times Medical ointment daily. Branch triamcinolo 2021-04 Yes [id number] Apply to Univers ne 1-11 area(s) 2 ity of acetonide 00:00: (two) [place] 0.1 % 00 times Medical ointment daily. Branch triamcinolo 2021-04 Yes [id number] Apply to Univers ne 1-11 area(s) 2 ity of acetonide 00:00: (two) [place] 0.1 % 00 times Medical ointment daily. Branch triamcinolo 2021-04 Yes [id number] Apply to Univers ne 1-11 area(s) 2 ity of acetonide 00:00: (two) [place] 0.1 % 00 times Medical ointment daily. Branch triamcinolo 2021-04 Yes [id number] Apply to Univers ne 1-11 area(s) 2 ity of acetonide 00:00: (two) [place] 0.1 % 00 times Medical ointment daily. Cesar marroquin 2021-04 Yes [id number] Apply to [facility] 1-11 area(s) 2 ity of acetonide 00:00: (two) [place] 0.1 % 00 times Medical ointment daily. Cesar marroquin 2021-04 Yes [id number] Apply to [facility] 1-11 area(s) 2 ity of acetonide 00:00: (two) [place] 0.1 % 00 times Medical ointment daily. [facility] Yes [id number] Apply to [facility] 1-11 area(s) 2 ity of acetonide 00:00: (two) [place] 0.1 % 00 times Medical ointment daily. Cesar marroquin 2021-04 Yes [id number] Apply to [facility] 1-11 area(s) 2 ity of acetonide 00:00: (two) [place] 0.1 % 00 times Medical ointment daily. Cesar marroquin 2021-04 Yes [id number] Apply to [facility] 1-11 area(s) 2 ity of acetonide 00:00: (two) [place] 0.1 % 00 times Medical ointment daily. Cesar marroquin 2021-04- No [id number] Apply to [facility] -11 05-17 area(s) 2 ity of acetonide 00:00: 00:00 (two) [place] 0.1 % 00 :00 times Medical ointment daily. Cesar marroquin 2021-04- No [id number] Apply to [facility] -11 05-17 area(s) 2 ity of acetonide 00:00: 00:00 (two) [place] 0.1 % 00 :00 times Medical ointment daily. Cesar marroquin 2021-04- No [id number] Apply to [facility] 1-11 05-17 area(s) 2 ity of acetonide 00:00: 00:00 (two) [place] 0.1 % 00 :00 times Medical ointment daily. Cesar marroquin 2021-04- No [id number] Apply to [facility] 04-28 area(s) 2 ity of acetonide 00:00: 00:00 (two) [place] 0.1 % 00 :00 times Medical ointment daily. Branch predniSONE 2021-04- No [id number] 40mg Take 2 Univers 20 mg 04-28 tablets by ity of tablet 00:00: 05:59 mouth in [place] 00 :00 the Medical morning Branch for 5 days. predniSONE 2021-04- No [id number] 40mg Take 2 Univers 20 mg 04-28 tablets by ity of tablet 00:00: 05:59 mouth in [place] 00 :00 the [facility] morning Branch for 5 days. metroNIDAZO 2021-04- No [id number] 500mg Take 1 Univers LE (FLAGYL) 04-26 tablet by it y of 500 mg 00:00: 05:59 mouth [place] tablet 00 :00 every 12 Medical ([facility]) Branch hours for 7 days. metroNIDAZO 2021-04- No [id number] 500mg Take 1 Univers LE (FLAGYL) 04-26 tablet by it y of 500 mg 00:00: 05:59 mouth [place] tablet 00 :00 every 12 Medical ([facility]) Branch hours for 7 days. metroNIDAZO 2021-04- No [id number] 500mg Take 1 Univers LE (FLAGYL) 04-26 tablet by it y of 500 mg 00:00: 05:59 mouth [place] tablet 00 :00 every 12 Medical ([facility]) Branch hours for 7 days. fluconazole 2021-04- No [id number] 150mg Take 1 Univers (DIFLUCAN) 04-26 tablet by ity of 150 mg 00:00: 05:59 mouth [place] tablet 00 :00 every 72 Medical (seventy-t Branch wo) hours for 2 doses. fluconazole 2021-04- No [id number] 150mg Take 1 Univers (DIFLUCAN) 04-26 tablet by ity of 150 mg 00:00: 05:59 mouth [place] tablet 00 :00 every 72 Medical ([facility] wo) hours for 2 doses. fluconazole 2021-04- No [id number] 150mg Take 1 Univers (DIFLUCAN) 04-26 tablet by ity of 150 mg 00:00: 05:59 mouth [place] tablet 00 :00 every 72 Medical (seventy-t Branch wo) hours for 2 doses. Nitrofurant 2021-04- No [id number] 100mg Take 1 Univers oin&Nit. 04-24 capsule by ity of Macrocryst 00:00: 05:59 mouth in [place] (MACROBID) 00 :00 the Medical 100 mg morning Branch capsule and 1 capsule in the evening. Take with meals. Do all this for 5 days. Nitrofurant 2021-04- No [id number] 100mg Take 1 Univers oin&Nit. 04-24-13 capsule by ity of Macrocryst 00:00: 05:59 mouth in [place] (MACROBID) 00 :00 the Medical 100 mg morning Branch capsule and 1 capsule in the evening. Take with meals. Do all this for 5 days. Nitrofurant 2021-04- No [id number] 100mg Take 1 Univers oin&Nit. 04-24 capsule by ity of Macrocryst 00:00: 05:59 mouth in [place] (MACROBID) 00 :00 the Medical 100 mg morning Branch capsule and 1 capsule in the evening. Take with meals. Do all this for 5 days. Nitrofurant 2021-04- No [id number] 100mg Take 1 Univers oin&Nit. 04-24 capsule by ity of Macrocryst 00:00: 05:59 mouth in [place] (MACROBID) 00 :00 the Medical 100 mg morning Branch capsule and 1 capsule in the evening. Take with meals. Do all this for 5 days. Nitrofurant 2021-04- No [id number] 100mg Take 1 Univers oin&Nit. 04-24-13 capsule by ity of Macrocryst 00:00: 05:59 mouth in [place] (MACROBID) 00 :00 the Medical 100 mg morning Branch capsule and 1 capsule in the evening. Take with meals. Do all this for 5 days. simethicone 2021- No Take by Shaji yeager (GAS-X 7-13 07-13 mouth. ity of ORAL) 17:48: 00:00 [place] 35 :00 Medical Branch cyclobenzap 2022-0 Yes 10mg Take 10 [...] [place] 32 times Medical daily. Branch acetaminoph 2021-0 2- No [id number] 650mg Take 2 Univers en 6-21 07-13 tablets by ity of (TYLENOL) 00:00: 00:00 mouth [place] 325 mg 00 :00 every 6 Medical tablet (six) Branch hours as needed for Pain (scale 1-3) or Pain (scale 4-6). simethicone 2021-0 2- No [id number] 80mg Take 1 Univers 80 mg 6-21 -13 tablet by ity of chewable 00:00: 00:00 mouth [place] tablet 00 :00 after Medical meals and Branch at bedtime. ibuprofen 2-0 2022- No [id number] 600mg Take 1 Univers 600 mg 6-21 07-13 tablet by ity of tablet 00:00: 00:00 [...] COVID-19 2021-10-09 Completed Unive rsity of PFIZER NTIA-SUCROSE 00:00:00 [place] [facility] VACCINE (GREENE TOP) Branch [...] COVID-19 2021-09-02 Completed Unive rsity of PFIZER INTA-SUCROSE 00:00:00 [place] [facility] VACCINE (GREENE TOP) Branch [...] COVID-19 2021-09-02 Completed Unive rsity of PFIZER NIAT-SUCROSE 00:00:00 [place] Medical VACCINE (GREENE TOP) Branch [...] y of Vaccine Quad .5 mL 00:00:00 [place] [facility] 6+ MO Branch TDAP 2018-09-26 Completed University of 00:00:00 [place] [facility] Branch TDAP 2018-09-26 Completed University of 00:00:00 [place] [facility] Branch TDAP 2018-09-26 Completed University of 00:00:00 [place] [facility] Branch TDAP 2018-09-26 Completed University of 00:00:00 [place] [facility] TDAP 2018-09-26 Completed University of 00:00:00 [place] [facility] TDAP 2018-09-26 Completed University of 00:00:00 [place] [facility] TDAP 2018-09-26 Completed University of 00:00:00 [place] [facility] TDAP 2018-09-26 Completed University of 00:00:00 [place] [facility] TDAP 2018-09-26 Completed University of 00:00:00 [place] [facility] TDAP 2018-09-26 Completed University of 00:00:00 [place] [facility] TDAP 2018-09-26 Completed University of 00:00:00 [place] [facility] TDAP 2018-09-26 Completed University of 00:00:00 [place] [facility] TDAP 2018-09-26 Completed University of 00:00:00 [place] [facility] TDAP 2018-09-26 Completed University of 00:00:00 [place] [facility] TDAP 2018-09-26 Completed University of 00:00:00 [place] [facility] TDAP 2018-09-26 Completed University of 00:00:00 [place] [facility] TDAP 2018-09-26 Completed University of 00:00:00 [place] [facility] TDAP 2018-09-26 Completed University of 00:00:00 [place] [facility] TDAP 2018-09-26 Completed University of 00:00:00 [place] [facility] TDAP 2018-09-26 Completed University of 00:00:00 [place] [facility] TDAP 2018-09-26 Completed University of 00:00:00 [place] [facility] TDAP 2018-09-26 Completed University of 00:00:00 [place] [facility] TDAP 2018-09-26 Completed University of 00:00:00 [place] [facility] TDAP 2018-09-26 Completed University of 00:00:00 [place] [facility] TDAP 2018-09-26 Completed University of 00:00:00 [place] [facility] TDAP 2018-09-26 Completed University of 00:00:00 [place] [facility] TDAP 2018-09-26 Completed University of 00:00:00 [place] [facility] TDAP 2018-09-26 Completed University of 00:00:00 [place] [facility] TDAP 2018-09-26 Completed University of 00:00:00 [place] [facility] TDAP 2018-09-26 Completed University of 00:00:00 [place] [facility] TDAP 2018-09-26 Completed University of 00:00:00 [place] [facility] TDAP 2018-09-26 Completed University of 00:00:00 [place] [facility] TDAP 2018-09-26 Completed University of 00:00:00 [place] [facility] TDAP 2018-09-26 Completed University of 00:00:00 [place] [facility] TDAP 2018-09-26 Completed University of 00:00:00 [place] [facility] TDAP 2018-09-26 Completed University of 00:00:00 [place] [facility] TDAP 2018-09-26 Completed University of 00:00:00 [place] [facility] TDAP 2018-09-26 Completed University of 00:00:00 [place] [facility] TDAP 2018-09-26 Completed University of 00:00:00 [place] [facility] TDAP 2018-09-26 Completed University of 00:00:00 [place] [facility] TDAP 2018-09-26 Completed University of 00:00:00 [place] [facility] TDAP 2018-09-26 Completed University of 00:00:00 [place] [facility] TDAP 2018-09-26 Completed University of 00:00:00 [place] [facility] TDAP 2018-09-26 Completed University of 00:00:00 [place] [facility] TDAP 2018-09-26 Completed University of 00:00:00 [place] [facility] TDAP 2018-09-26 Completed University of 00:00:00 [place] [facility] TDAP 2018-09-26 Completed University of 00:00:00 [place] [facility] TDAP 2018-09-26 Completed University of 00:00:00 [place] [facility] TDAP 2018-09-26 Completed University of 00:00:00 [place] [facility] TDAP 2018-09-26 Completed University of 00:00:00 [place] [facility] TDAP 2018-09-26 Completed University of 00:00:00 [place] [facility] TDAP 2018-09-26 Completed University of 00:00:00 [place] [facility] TDAP 2018-09-26 Completed University of 00:00:00 [place] [facility] TDAP 2018-09-26 Completed University of 00:00:00 [place] [facility] TDAP 2018-09-26 Completed University of 00:00:00 [place] [facility] TDAP 2018-09-26 Completed University of 00:00:00 [place] [facility] TDAP 2018-09-26 Completed University of 00:00:00 [place] [facility] TDAP 2018-09-26 Completed University of 00:00:00 [place] [facility] TDAP 2018-09-26 Completed University of 00:00:00 [facility] Influenza Virus 2018-04-21 Completed Universit y of Vaccine Quad .5 mL 00:00:00 [place] [facility] IM 6+ MO Branch Influenza Virus 2018-04-21 Completed Universit y of Vaccine Quad .5 mL 00:00:00 [place] [facility] IM 6+ MO Branch Influenza Virus [...] y of Vaccine Quad .5 mL 00:00:00 [place] [facility] IM 6+ MO Branch Influenza Virus [...] y of Vaccine Quad .5 mL 00:00:00 [place] [facility] IM 6+ MO Branch Influenza Virus 2018-04-21 Completed Universit y of Vaccine Quad .5 mL 00:00:00 [place] [facility] IM 6+ MO Branch Influenza Virus [...] y of Vaccine Quad .5 mL 00:00:00 [place] [facility] 6+ MO Branch Influenza Virus 2018-04-21 Completed Universit y of Vaccine Quad .5 mL 00:00:00 [place] [facility] 6+ MO Branch Influenza Virus 2018-04-21 Completed Universit y of Vaccine Quad .5 mL 00:00:00 [place] [facility] 6+ MO Branch Influenza Virus 2018-04-21 Completed Universit y of Vaccine Quad .5 mL 00:00:00 [place] [facility] 6+ MO Branch Influenza Virus 2018-04-21 Completed Universit y of Vaccine Quad .5 mL 00:00:00 [place] [facility] 6+ MO Branch Influenza Virus 2018-04-21 Completed Universit y of Vaccine Quad .5 mL 00:00:00 [place] [facility] 6+ MO Branch Influenza Virus 2018-04-21 Completed Universit y of Vaccine Quad .5 mL 00:00:00 [place] [facility] IM 6+ MO Branch Influenza Virus 2018-04-21 Completed Universit y of Vaccine Quad .5 mL 00:00:00 [place] [facility] IM 6+ MO Branch Influenza Virus 2018-04-21 Completed Universit y of Vaccine Quad .5 mL 00:00:00 [place] [facility] 6+ MO Branch Influenza Virus 2018-04-21 Completed Universit y of Vaccine Quad .5 mL 00:00:00 [place] [facility] 6+ MO Branch Influenza Virus 2018-04-21 Completed Universit y of Vaccine Quad .5 mL 00:00:00 [place] [facility] 6+ MO Branch HPV9 2016-02-13 Completed University of 00:00:00 [facility] HPV9 2016-02-13 Completed University of 00:00:00 [place] [facility] HPV9 2016-02-13 Completed University of 00:00:00 [place] [facility] HPV9 2016-02-13 Completed University of 00:00:00 [place] [facility] HPV9 2016-02-13 Completed University of 00:00:00 [place] [facility] HPV9 2016-02-13 Completed University of 00:00:00 [place] [facility] HPV9 2016-02-13 Completed University of 00:00:00 [place] [facility] HPV9 2016-02-13 Completed University of 00:00:00 [place] [facility] HPV9 2016-02-13 Completed University of 00:00:00 [place] [facility] HPV9 2016-02-13 Completed University of 00:00:00 [place] [facility] HPV9 2016-02-13 Completed University of 00:00:00 [place] [facility] HPV9 2016-02-13 Completed University of 00:00:00 [place] [facility] HPV9 2016-02-13 Completed University of 00:00:00 [place] [facility] HPV9 2016-02-13 Completed University of 00:00:00 [place] [facility] HPV9 2016-02-13 Completed University of 00:00:00 [place] [facility] HPV9 2016-02-13 Completed University of 00:00:00 [place] [facility] HPV9 2016-02-13 Completed University of 00:00:00 [place] [facility] HPV9 2016-02-13 Completed University of 00:00:00 [place] [facility] HPV9 2016-02-13 Completed University of 00:00:00 [facility] Branch HPV9 2016-02-13 Completed University of 00:00:00 [facility] Branch HPV9 2016-02-13 Completed University of 00:00:00 [place] [facility] HPV9 2016-02-13 Completed University of 00:00:00 [place] [facility] HPV9 2016-02-13 Completed University of 00:00:00 [place] [facility] HPV9 2016-02-13 Completed University of 00:00:00 [place] [facility] HPV9 2016-02-13 Completed [facility] 00:00:00 [facility] HPV9 2016-02-13 Completed [facility] 00[facility]00:00 [facility] HPV9 2016-02-13 Completed [facility] 00:00:00 [facility] HPV9 2016-02-13 Completed [facility] 00:00:00 [facility] HPV9 2016-02-13 Completed [facility] 00:00:00 [facility] HPV9 2016-02-13 Completed [facility] 00:00:00 [facility] HPV9 2016-02-13 Completed [facility] 00:00:00 [facility] HPV9 2016-02-13 Completed [facility] 00:00:00 [facility] HPV9 2016-02-13 Completed [facility] 00:00:00 [facility] HPV9 2016-02-13 Completed [facility] 00:00:00 [facility] HPV9 2016-02-13 Completed [facility] 00:00:00 [facility] HPV9 2016-02-13 Completed [facility] 00:00:00 [facility] HPV9 2016-02-13 Completed [facility] 00:00:00 [facility] HPV9 2016-02-13 Completed [facility] 00:00:00 [facility] HPV9 2016-02-13 Completed [facility] 00:00:00 [facility] HPV9 2016-02-13 Completed [facility] 00:00:00 [facility] HPV9 2016-02-13 Completed [facility] 00:00:00 [facility] HPV9 2016-02-13 Completed [facility] 00:00:00 [facility] HPV9 2016-02-13 Completed [facility] 00:00:00 [facility] HPV9 2016-02-13 Completed [facility] 00:00:00 [facility] HPV9 2016-02-13 Completed [facility] 00:00:00 [facility] HPV9 2016-02-13 Completed [facility] 00:00:00 [facility] HPV9 2016-02-13 Completed [facility] 00:00:00 [facility] HPV9 2016-02-13 Completed [facility] 00:00:00 [facility] HPV9 2016-02-13 Completed [facility] 00:00:00 [facility] HPV9 2016-02-13 Completed [facility] 00:00:00 [facility] HPV9 2016-02-13 Completed [facility] 00:00:00 [facility] HPV9 2016-02-13 Completed [facility] 00:00:00 [facility] HPV9 2016-02-13 Completed [facility] 00:00:00 [facility] HPV9 2016-02-13 Completed [facility] 00:00:00 [facility] HPV9 2016-02-13 Completed [facility] 00:00:00 [facility] HPV9 2016-02-13 Completed [facility] 00:00:00 [facility] HPV9 2016-02-13 Completed [facility] 00:00:00 [facility] HPV9 2016-02-13 Completed [facility] 00:00:00 [facility] HPV9 2016-02-13 Completed [facility] 00:00:00 [facility] HPV 2015-01-17 Completed [facility] 00:00:00 [facility] Meningococcal 2015-01-17 Completed [facility] Vaccine 00:00:00 [facility] HPV 2015-01-17 Completed [facility] 00:00:00 [facility] Meningococcal 2015-01-17 Completed [facility] Vaccine 00:00:00 [facility] HPV 2015-01-17 Completed [facility] 00:00:00 [facility] Meningococcal 2015-01-17 Completed [facility] Vaccine 00:00:00 [facility] HPV 2015-01-17 Completed [facility] 00:00:00 [facility] Meningococcal 2015-01-17 Completed [facility] Vaccine 00:00:00 [facility] HPV 2015-01-17 Completed [facility] 00:00:00 [facility] Meningococcal 2015-01-17 Completed [facility] Vaccine 00:00:00 [facility] HPV 2015-01-17 Completed [facility] 00:00:00 [facility] Meningococcal 2015-01-17 Completed [facility] Vaccine 00:00:00 [facility] HPV 2015-01-17 Completed [facility] 00:00:00 [facility] Meningococcal 2015-01-17 Completed [facility] Vaccine 00:00:00 [facility] HPV 2015-01-17 Completed [facility] 00:00:00 [facility] Meningococcal 2015-01-17 Completed [facility] Vaccine 00:00:00 [facility] HPV 2015-01-17 Completed [facility] 00:00:00 [facility] Meningococcal 2015-01-17 Completed [facility] Vaccine 00:00:00 [facility] HPV 2015-01-17 Completed [facility] 00:00:00 [facility] Meningococcal 2015-01-17 Completed [facility] Vaccine 00:00:00 [facility] HPV 2015-01-17 Completed [facility] 00:00:00 [facility] Meningococcal 2015-01-17 Completed [facility] Vaccine 00:00:00 [facility] HPV 2015-01-17 Completed [facility] 00:00:00 [facility] Meningococcal 2015-01-17 Completed [facility] Vaccine 00:00:00 [facility] HPV 2015-01-17 Completed [facility] 00:00:00 [facility] Meningococcal 2015-01-17 Completed [facility] Vaccine 00:00:00 [facility] HPV 2015-01-17 Completed [facility] 00:00:00 [facility] Meningococcal 2015-01-17 Completed [facility] Vaccine 00:00:00 [facility] HPV 2015-01-17 Completed [facility] 00:00:00 [facility] Meningococcal 2015-01-17 Completed [facility] Vaccine 00:00:00 [facility] HPV 2015-01-17 Completed [facility] 00:00:00 [facility] Meningococcal 2015-01-17 Completed [facility] Vaccine 00:00:00 [facility] HPV 2015-01-17 Completed [facility] 00:00:00 [facility] Meningococcal 2015-01-17 Completed [facility] Vaccine 00:00:00 [facility] HPV 2015-01-17 Completed [facility] 00:00:00 [facility] Meningococcal 2015-01-17 Completed [facility] Vaccine 00:00:00 [facility] HPV 2015-01-17 Completed [facility] 00:00:00 [facility] Meningococcal 2015-01-17 Completed [facility] Vaccine 00:00:00 [facility] HPV 2015-01-17 Completed [facility] 00:00:00 [facility] Meningococcal 2015-01-17 Completed [facility] Vaccine 00:00:00 [facility] HPV 2015-01-17 Completed [facility] 00:00:00 [facility] Meningococcal 2015-01-17 Completed [facility] Vaccine 00:00:00 [facility] HPV 2015-01-17 Completed [facility] 00:00:00 [facility] Meningococcal 2015-01-17 Completed [facility] Vaccine 00:00:00 [facility] HPV 2015-01-17 Completed [facility] 00:00:00 [facility] Meningococcal 2015-01-17 Completed [facility] Vaccine 00:00:00 [facility] HPV 2015-01-17 Completed [facility] 00:00:00 [facility] Meningococcal 2015-01-17 Completed [facility] Vaccine 00:00:00 [facility] HPV 2015-01-17 Completed [facility] 00:00:00 [facility] Meningococcal 2015-01-17 Completed [facility] Vaccine 00:00:00 [facility] HPV 2015-01-17 Completed [facility] 00:00:00 [facility] Meningococcal 2015-01-17 Completed [facility] Vaccine 00:00:00 [facility] HPV 2015-01-17 Completed [facility] 00:00:00 [facility] Meningococcal 2015-01-17 Completed [facility] Vaccine 00:00:00 [facility] HPV 2015-01-17 Completed [facility] 00:00:00 [facility] Meningococcal 2015-01-17 Completed [facility] Vaccine 00:00:00 [facility] HPV 2015-01-17 Completed [facility] 00:00:00 [facility] Meningococcal 2015-01-17 Completed [facility] Vaccine 00:00:00 [facility] HPV 2015-01-17 Completed [facility] 00:00:00 [facility] Meningococcal 2015-01-17 Completed [facility] Vaccine 00:00:00 [facility] HPV 2015-01-17 Completed [facility] 00:00:00 [facility] Meningococcal 2015-01-17 Completed [facility] Vaccine 00:00:00 [facility] HPV 2015-01-17 Completed [facility] 00[facility]00:00 [facility] Meningococcal 2015-01-17 Completed [facility] Vaccine 00:00:00 [facility] HPV 2015-01-17 Completed [facility] 00:00:00 [facility] Meningococcal 2015-01-17 Completed [facility] Vaccine 00:00:00 [facility] HPV 2015-01-17 Completed [facility] 00:00:00 [facility] Meningococcal 2015-01-17 Completed [facility] Vaccine 00:00:00 [facility] HPV 2015-01-17 Completed [facility] 00:00:00 [facility] Meningococcal 2015-01-17 Completed [facility] Vaccine 00:00:00 [facility] HPV 2015-01-17 Completed [facility] 00:00:00 [facility] Meningococcal 2015-01-17 Completed [facility] Vaccine 00:00:00 [facility] HPV 2015-01-17 Completed [facility] 00:00:00 [facility] Meningococcal 2015-01-17 Completed [facility] Vaccine 00:00:00 [facility] HPV 2015-01-17 Completed [facility] 00:00:00 [facility] Meningococcal 2015-01-17 Completed [facility] Vaccine 00:00:00 [facility] HPV 2015-01-17 Completed [facility] 00:00:00 [facility] Meningococcal 2015-01-17 Completed [facility] Vaccine 00:00:00 [facility] HPV 2015-01-17 Completed [facility] 00:00:00 [facility] Meningococcal 2015-01-17 Completed [facility] Vaccine 00:00:00 [facility] HPV 2015-01-17 Completed [facility] 00:00:00 [facility] Meningococcal 2015-01-17 Completed [facility] Vaccine 00:00:00 [facility] HPV 2015-01-17 Completed [facility] 00:00:00 [facility] Meningococcal 2015-01-17 Completed [facility] Vaccine 00:00:00 [facility] HPV 2015-01-17 Completed [facility] 00:00:00 [facility] Meningococcal 2015-01-17 Completed [facility] Vaccine 00:00:00 [facility] HPV 2015-01-17 Completed [facility] 00:00:00 [facility] Meningococcal 2015-01-17 Completed [facility] Vaccine 00:00:00 [facility] HPV 2015-01-17 Completed [facility] 00:00:00 [facility] Meningococcal 2015-01-17 Completed [facility] Vaccine 00:00:00 [facility] HPV 2015-01-17 Completed [facility] 00:00:00 [facility] Meningococcal 2015-01-17 Completed [facility] Vaccine 00:00:00 [facility] HPV 2015-01-17 Completed [facility] 00:00:00 [facility] Meningococcal 2015-01-17 Completed [facility] Vaccine 00:00:00 [facility] HPV 2015-01-17 Completed [facility] 00:00:00 [facility] Meningococcal 2015-01-17 Completed [facility] Vaccine 00:00:00 [facility] HPV 2015-01-17 Completed [facility] 00:00:00 [facility] Meningococcal 2015-01-17 Completed [facility] Vaccine 00:00:00 [facility] HPV 2015-01-17 Completed [facility] 00:00:00 [facility] Meningococcal 2015-01-17 Completed [facility] Vaccine 00:00:00 [facility] HPV 2015-01-17 Completed [facility] 00:00:00 [facility] Meningococcal 2015-01-17 Completed [facility] Vaccine 00:00:00 [facility] HPV 2015-01-17 Completed [facility] 00:00:00 [facility] Meningococcal 2015-01-17 Completed [facility] Vaccine 00:00:00 [facility] HPV 2015-01-17 Completed [facility] 00:00:00 [facility] Meningococcal 2015-01-17 Completed [facility] Vaccine 00:00:00 [facility] HPV 2015-01-17 Completed [facility] 00:00:00 [facility] Meningococcal 2015-01-17 Completed [facility] Vaccine 00:00:00 [facility] HPV 2015-01-17 Completed [facility] 00:00:00 [facility] Meningococcal 2015-01-17 Completed [facility] Vaccine 00:00:00 [facility] HPV 2015-01-17 Completed [facility] 00:00:00 [facility] Meningococcal 2015-01-17 Completed [facility] Vaccine 00:00:00 [facility] HPV 2015-01-17 Completed [facility] 00:00:00 [facility] Meningococcal 2015-01-17 Completed [facility] Vaccine 00:00:00 [facility] HPV 2015-01-17 Completed [facility] 00:00:00 [facility] Meningococcal 2015-01-17 Completed [facility] Vaccine 00:00:00 [facility] HPV 2015-01-17 Completed [facility] 00:00:00 [facility] Meningococcal 2015-01-17 Completed [facility] Vaccine 00:00:00 [facility] Varicella 2011-03-01 Completed [facility] of (varivax)(chicken 00:00:00 [...] Branch HPV 2009-11-17 Completed [facility] 00:00:00 [facility] Meningococcal 2009-11-17 Completed [facility] Vaccine 00:00:00 [facility] TDAP 2009-11-17 Completed [facility] 00:00:00 [facility] HPV 2009-11-17 Completed [facility] 00:00:00 [facility] Meningococcal 2009-11-17 Completed [facility] Vaccine 00:00:00 [facility] TDAP 2009-11-17 Completed [facility] 00:00:00 [facility] HPV 2009-11-17 Completed [facility] 00:00:00 [facility] Meningococcal 2009-11-17 Completed [facility] Vaccine 00:00:00 [facility] TDAP 2009-11-17 Completed [facility] 00:00:00 [facility] HPV 2009-11-17 Completed [facility] 00:00:00 [facility] Meningococcal 2009-11-17 Completed [facility] Vaccine 00:00:00 [facility] TDAP 2009-11-17 Completed [facility] 00:00:00 [facility] HPV 2009-11-17 Completed [facility] 00:00:00 [facility] Meningococcal 2009-11-17 Completed [facility] Vaccine 00:00:00 [facility] TDAP 2009-11-17 Completed [facility] 00:00:00 [facility] HPV 2009-11-17 Completed [facility] 00:00:00 [facility] Meningococcal 2009-11-17 Completed [facility] Vaccine 00:00:00 [facility] TDAP 2009-11-17 Completed [facility] 00:00:00 [facility] HPV 2009-11-17 Completed [facility] 00:00:00 [facility] Meningococcal 2009-11-17 Completed [facility] Vaccine 00:00:00 [facility] TDAP 2009-11-17 Completed [facility] 00[facility]00:00 [facility] HPV 2009-11-17 Completed [facility] 00:00:00 [facility] Meningococcal 2009-11-17 Completed [facility] Vaccine 00:00:00 [facility] TDAP 2009-11-17 Completed [facility] 00[facility]00:00 [facility] HPV 2009-11-17 Completed [facility] 00:00:00 [facility] Meningococcal 2009-11-17 Completed [facility] Vaccine 00:00:00 [facility] TDAP 2009-11-17 Completed [facility] 00:00:00 [facility] HPV 2009-11-17 Completed [facility] 00:00:00 [facility] Meningococcal 2009-11-17 Completed [facility] Vaccine 00:00:00 [facility] TDAP 2009-11-17 Completed [facility] 00:00:00 [facility] HPV 2009-11-17 Completed [facility] 00:00:00 [facility] Meningococcal 2009-11-17 Completed [facility] Vaccine 00:00:00 [facility] TDAP 2009-11-17 Completed [facility] 00[facility]00:00 [facility] HPV 2009-11-17 Completed [facility] 00:00:00 [facility] Meningococcal 2009-11-17 Completed [facility] Vaccine 00:00:00 [facility] TDAP 2009-11-17 Completed [facility] 00:00:00 [facility] HPV 2009-11-17 Completed [facility] 00:00:00 [facility] Meningococcal 2009-11-17 Completed [facility] Vaccine 00:00:00 [facility] TDAP 2009-11-17 Completed [facility] 00:00:00 [facility] HPV 2009-11-17 Completed [facility] 00:00:00 [facility] Meningococcal 2009-11-17 Completed [facility] Vaccine 00:00:00 [facility] TDAP 2009-11-17 Completed [facility] 00:00:00 [facility] HPV 2009-11-17 Completed [facility] 00:00:00 [facility] Meningococcal 2009-11-17 Completed [facility] Vaccine 00:00:00 [facility] TDAP 2009-11-17 Completed [facility] 00:00:00 [facility] HPV 2009-11-17 Completed [facility] 00:00:00 [facility] Meningococcal 2009-11-17 Completed [facility] Vaccine 00:00:00 [facility] TDAP 2009-11-17 Completed [facility] 00:00:00 [facility] HPV 2009-11-17 Completed [facility] 00:00:00 [facility] Meningococcal 2009-11-17 Completed [facility] Vaccine 00:00:00 [facility] TDAP 2009-11-17 Completed [facility] 00[facility]00:00 [facility] HPV 2009-11-17 Completed [facility] 00:00:00 [facility] Meningococcal 2009-11-17 Completed [facility] Vaccine 00:00:00 [facility] TDAP 2009-11-17 Completed [facility] 00[facility]00:00 [facility] HPV 2009-11-17 Completed [facility] 00:00:00 [facility] Meningococcal 2009-11-17 Completed [facility] Vaccine 00:00:00 [facility] TDAP 2009-11-17 Completed [facility] 00:00:00 [facility] HPV 2009-11-17 Completed [facility] 00:00:00 [facility] Meningococcal 2009-11-17 Completed [facility] Vaccine 00:00:00 [facility] TDAP 2009-11-17 Completed [facility] 00[facility]00:00 [facility] HPV 2009-11-17 Completed [facility] 00:00:00 [facility] Meningococcal 2009-11-17 Completed [facility] Vaccine 00:00:00 [facility] TDAP 2009-11-17 Completed [facility] 00[facility]00:00 [facility] HPV 2009-11-17 Completed [facility] 00:00:00 [facility] Meningococcal 2009-11-17 Completed [facility] Vaccine 00:00:00 [facility] TDAP 2009-11-17 Completed [facility] 00:00:00 [facility] HPV 2009-11-17 Completed [facility] 00:00:00 [facility] Meningococcal 2009-11-17 Completed [facility] Vaccine 00:00:00 [facility] TDAP 2009-11-17 Completed [facility] 00[facility]00:00 [facility] HPV 2009-11-17 Completed [facility] 00:00:00 [facility] Meningococcal 2009-11-17 Completed [facility] Vaccine 00:00:00 [facility] TDAP 2009-11-17 Completed [facility] 00:00:00 [facility] HPV 2009-11-17 Completed [facility] 00:00:00 [facility] Meningococcal 2009-11-17 Completed [facility] Vaccine 00:00:00 [facility] TDAP 2009-11-17 Completed [facility] 00:00:00 [facility] HPV 2009-11-17 Completed [facility] 00:00:00 [facility] Meningococcal 2009-11-17 Completed [facility] Vaccine 00:00:00 [facility] TDAP 2009-11-17 Completed [facility] 00[facility]00:00 [facility] HPV 2009-11-17 Completed [facility] 00:00:00 [facility] Meningococcal 2009-11-17 Completed [facility] Vaccine 00:00:00 [facility] TDAP 2009-11-17 Completed [facility] 00[facility]00:00 [facility] HPV 2009-11-17 Completed [facility] 00:00:00 [facility] Meningococcal 2009-11-17 Completed [facility] Vaccine 00:00:00 [facility] TDAP 2009-11-17 Completed [facility] 00[facility]00:00 [facility] HPV 2009-11-17 Completed [facility] 00:00:00 [facility] Meningococcal 2009-11-17 Completed [facility] Vaccine 00:00:00 [facility] TDAP 2009-11-17 Completed [facility] 00[facility]00:00 [facility] HPV 2009-11-17 Completed [facility] 00[facility]00:00 [facility] Meningococcal 2009-11-17 Completed [facility] Vaccine 00:00:00 [facility] TDAP 2009-11-17 Completed [facility] 00:00:00 [facility] HPV 2009-11-17 Completed [facility] 00:00:00 [facility] Meningococcal 2009-11-17 Completed [facility] Vaccine 00:00:00 [facility] TDAP 2009-11-17 Completed [facility] 00:00:00 [facility] HPV 2009-11-17 Completed [facility] 00:00:00 [facility] Meningococcal 2009-11-17 Completed [facility] Vaccine 00:00:00 [facility] TDAP 2009-11-17 Completed [facility] 00:00:00 [facility] HPV 2009-11-17 Completed [facility] 00:00:00 [facility] Meningococcal 2009-11-17 Completed [facility] Vaccine 00:00:00 [facility] TDAP 2009-11-17 Completed [facility] 00:00:00 [facility] HPV 2009-11-17 Completed [facility] 00:00:00 [facility] Meningococcal 2009-11-17 Completed [facility] Vaccine 00:00:00 [facility] TDAP 2009-11-17 Completed [facility] 00:00:00 [facility] HPV 2009-11-17 Completed [facility] 00:00:00 [facility] Meningococcal 2009-11-17 Completed [facility] Vaccine 00:00:00 [facility] TDAP 2009-11-17 Completed [facility] 00[facility]00:00 [facility] HPV 2009-11-17 Completed [facility] 00:00:00 [facility] Meningococcal 2009-11-17 Completed [facility] Vaccine 00:00:00 [facility] TDAP 2009-11-17 Completed [facility] 00[facility]00:00 [facility] HPV 2009-11-17 Completed [facility] 00:00:00 [facility] Meningococcal 2009-11-17 Completed [facility] Vaccine 00:00:00 [facility] TDAP 2009-11-17 Completed [facility] 00:00:00 [facility] HPV 2009-11-17 Completed [facility] 00:00:00 [facility] Meningococcal 2009-11-17 Completed [facility] Vaccine 00:00:00 [facility] TDAP 2009-11-17 Completed [facility] 00[facility]00:00 [facility] HPV 2009-11-17 Completed [facility] 00:00:00 [facility] Meningococcal 2009-11-17 Completed [facility] Vaccine 00:00:00 [facility] TDAP 2009-11-17 Completed [facility] 00:00:00 [facility] HPV 2009-11-17 Completed [facility] 00:00:00 [facility] Meningococcal 2009-11-17 Completed [facility] Vaccine 00:00:00 [facility] TDAP 2009-11-17 Completed [facility] 00[facility]00:00 [facility] HPV 2009-11-17 Completed [facility] 00:00:00 [facility] Meningococcal 2009-11-17 Completed [facility] Vaccine 00:00:00 [facility] TDAP 2009-11-17 Completed [facility] 00[facility]00:00 [facility] HPV 2009-11-17 Completed [facility] 00:00:00 [facility] Meningococcal 2009-11-17 Completed [facility] Vaccine 00:00:00 [facility] TDAP 2009-11-17 Completed [facility] 00[facility]00:00 [facility] HPV 2009-11-17 Completed [facility] 00:00:00 [facility] Meningococcal 2009-11-17 Completed [facility] Vaccine 00:00:00 [facility] TDAP 2009-11-17 Completed [facility] 00[facility]00:00 [facility] HPV 2009-11-17 Completed [facility] 00:00:00 [facility] Meningococcal 2009-11-17 Completed [facility] Vaccine 00:00:00 [facility] TDAP 2009-11-17 Completed [facility] 00:00:00 [facility] HPV 2009-11-17 Completed [facility] 00:00:00 [facility] Meningococcal 2009-11-17 Completed [facility] Vaccine 00:00:00 [facility] TDAP 2009-11-17 Completed [facility] 00:00:00 [facility] HPV 2009-11-17 Completed [facility] 00:00:00 [facility] Meningococcal 2009-11-17 Completed [facility] Vaccine 00:00:00 [facility] TDAP 2009-11-17 Completed [facility] 00[facility]00:00 [facility] HPV 2009-11-17 Completed [facility] 00:00:00 [facility] Meningococcal 2009-11-17 Completed [facility] Vaccine 00:00:00 [facility] TDAP 2009-11-17 Completed [facility] 00[facility]00:00 [facility] HPV 2009-11-17 Completed [facility] 00:00:00 [facility] Meningococcal 2009-11-17 Completed [facility] Vaccine 00:00:00 [facility] TDAP 2009-11-17 Completed [facility] 00:00:00 [facility] HPV 2009-11-17 Completed [facility] 00:00:00 [facility] Meningococcal 2009-11-17 Completed [facility] Vaccine 00:00:00 [facility] TDAP 2009-11-17 Completed [facility] 00:00:00 [facility] HPV 2009-11-17 Completed [facility] 00:00:00 [facility] Meningococcal 2009-11-17 Completed [facility] Vaccine 00:00:00 [facility] TDAP 2009-11-17 Completed [facility] 00:00:00 [facility] HPV 2009-11-17 Completed [facility] 00[facility]00:00 [facility] Meningococcal 2009-11-17 Completed [facility] Vaccine 00:00:00 [facility] TDAP 2009-11-17 Completed [facility] 00[facility]00:00 [facility] HPV 2009-11-17 Completed [facility] 00:00:00 [facility] Meningococcal 2009-11-17 Completed [facility] Vaccine 00:00:00 [facility] TDAP 2009-11-17 Completed [facility] 00:00:00 [facility] HPV 2009-11-17 Completed [facility] 00:00:00 [facility] Meningococcal 2009-11-17 Completed [facility] Vaccine 00:00:00 [facility] TDAP 2009-11-17 Completed [facility] 00:00:00 [facility] HPV 2009-11-17 Completed [facility] 00:00:00 [facility] Meningococcal 2009-11-17 Completed [facility] Vaccine 00:00:00 [facility] TDAP 2009-11-17 Completed [facility] 00[facility]00:00 [facility] HPV 2009-11-17 Completed [facility] 00:00:00 [facility] Meningococcal 2009-11-17 Completed [facility] Vaccine 00:00:00 [facility] TDAP 2009-11-17 Completed [facility] 00[facility]00:00 [facility] HPV 2009-11-17 Completed [facility] 00:00:00 [facility] Meningococcal 2009-11-17 Completed [facility] Vaccine 00:00:00 [facility] TDAP 2009-11-17 Completed [facility] 00:00:00 [facility] HPV 2009-11-17 Completed [facility] 00:00:00 [facility] Meningococcal 2009-11-17 Completed [facility] Vaccine 00:00:00 [facility] TDAP 2009-11-17 Completed [facility] 00[facility]00:00 [facility] HPV 2009-11-17 Completed [facility] 00:00:00 [facility] Meningococcal 2009-11-17 Completed [facility] Vaccine 00:00:00 [facility] TDAP 2009-11-17 Completed [facility] 00:00:00 [facility] HPV 2009-11-17 Completed [facility] 00:00:00 [facility] Meningococcal 2009-11-17 Completed [facility] Vaccine 00:00:00 [facility] TDAP 2009-11-17 Completed [facility] 00:00:00 [facility] DTAP 2002-04-05 Completed [facility] 00:00:00 [facility] MMR 2002-04-05 Completed [facility] 00:00:00 [facility] Polio (IPV/OPV) 2002-04-05 Completed [facility] 00:00:00 [facility] DTAP 2002-04-05 Completed [facility] 00:00:00 [facility] MMR 2002-04-05 Completed [facility] 00:00:00 [facility] Polio (IPV/OPV) 2002-04-05 Completed [facility] 00:00:00 [facility] DTAP 2002-04-05 Completed [facility] 00:00:00 [facility] MMR 2002-04-05 Completed [facility] 00:00:00 [facility] Polio (IPV/OPV) 2002-04-05 Completed [facility] 00:00:00 [facility] DTAP 2002-04-05 Completed [facility] 00:00:00 [facility] MMR 2002-04-05 Completed [facility] 00:00:00 [facility] Polio (IPV/OPV) 2002-04-05 Completed [facility] 00:00:00 [facility] DTAP 2002-04-05 Completed [facility] 00:00:00 [facility] MMR 2002-04-05 Completed [facility] 00:00:00 [facility] Polio (IPV/OPV) 2002-04-05 Completed [facility] 00:00:00 [facility] DTAP 2002-04-05 Completed [facility] 00:00:00 [facility] MMR 2002-04-05 Completed [facility] 00:00:00 [facility] Polio (IPV/OPV) 2002-04-05 Completed [facility] 00:00:00 [facility] DTAP 2002-04-05 Completed [facility] 00:00:00 [facility] MMR 2002-04-05 Completed [facility] 00:00:00 [facility] Polio (IPV/OPV) 2002-04-05 Completed [facility] 00:00:00 [facility] DTAP 2002-04-05 Completed [facility] 00:00:00 [facility] MMR 2002-04-05 Completed [facility] 00:00:00 [facility] Polio (IPV/OPV) 2002-04-05 Completed [facility] 00:00:00 [facility] DTAP 2002-04-05 Completed [facility] 00:00:00 [facility] MMR 2002-04-05 Completed [facility] 00:00:00 [facility] Polio (IPV/OPV) 2002-04-05 Completed [facility] 00:00:00 [facility] DTAP 2002-04-05 Completed [facility] 00:00:00 [facility] MMR 2002-04-05 Completed [facility] 00:00:00 [facility] Polio (IPV/OPV) 2002-04-05 Completed [facility] 00:00:00 [facility] DTAP 2002-04-05 Completed [facility] 00:00:00 [facility] MMR 2002-04-05 Completed [facility] 00:00:00 [facility] Polio (IPV/OPV) 2002-04-05 Completed [facility] 00:00:00 [facility] DTAP 2002-04-05 Completed [facility] 00:00:00 [facility] MMR 2002-04-05 Completed [facility] 00:00:00 [facility] Polio (IPV/OPV) 2002-04-05 Completed [facility] 00:00:00 [facility] DTAP 2002-04-05 Completed [facility] 00:00:00 [facility] MMR 2002-04-05 Completed [facility] 00:00:00 [facility] Polio (IPV/OPV) 2002-04-05 Completed [facility] 00:00:00 [facility] DTAP 2002-04-05 Completed [facility] 00:00:00 [facility] MMR 2002-04-05 Completed [facility] 00:00:00 [facility] Polio (IPV/OPV) 2002-04-05 Completed [facility] 00:00:00 [facility] DTAP 2002-04-05 Completed [facility] 00:00:00 [facility] MMR 2002-04-05 Completed [facility] 00:00:00 [facility] Polio (IPV/OPV) 2002-04-05 Completed [facility] 00:00:00 [facility] DTAP 2002-04-05 Completed [facility] 00:00:00 [facility] MMR 2002-04-05 Completed [facility] 00:00:00 [facility] Polio (IPV/OPV) 2002-04-05 Completed [facility] 00:00:00 [facility] DTAP 2002-04-05 Completed [facility] 00:00:00 [facility] MMR 2002-04-05 Completed [facility] 00:00:00 [facility] Polio (IPV/OPV) 2002-04-05 Completed [facility] 00:00:00 [facility] DTAP 2002-04-05 Completed [facility] 00:00:00 [facility] MMR 2002-04-05 Completed [facility] 00:00:00 [facility] Polio (IPV/OPV) 2002-04-05 Completed [facility] 00:00:00 [facility] DTAP 2002-04-05 Completed [facility] 00:00:00 [facility] MMR 2002-04-05 Completed [facility] 00:00:00 [facility] Polio (IPV/OPV) 2002-04-05 Completed [facility] 00:00:00 [facility] DTAP 2002-04-05 Completed [facility] 00:00:00 [facility] MMR 2002-04-05 Completed [facility] 00:00:00 [facility] Polio (IPV/OPV) 2002-04-05 Completed [facility] 00:00:00 [facility] DTAP 2002-04-05 Completed [facility] 00:00:00 [facility] MMR 2002-04-05 Completed [facility] 00:00:00 [facility] Polio (IPV/OPV) 2002-04-05 Completed [facility] 00:00:00 [facility] DTAP 2002-04-05 Completed [facility] 00:00:00 [facility] MMR 2002-04-05 Completed [facility] 00:00:00 [facility] Polio (IPV/OPV) 2002-04-05 Completed [facility] 00:00:00 [facility] DTAP 2002-04-05 Completed [facility] 00:00:00 [facility] MMR 2002-04-05 Completed [facility] 00:00:00 [facility] Polio (IPV/OPV) 2002-04-05 Completed [facility] 00:00:00 [facility] DTAP 2002-04-05 Completed [facility] 00:00:00 [facility] MMR 2002-04-05 Completed [facility] 00:00:00 [facility] Polio (IPV/OPV) 2002-04-05 Completed [facility] 00:00:00 [facility] DTAP 2002-04-05 Completed [facility] 00:00:00 [facility] MMR 2002-04-05 Completed [facility] 00:00:00 [facility] Polio (IPV/OPV) 2002-04-05 Completed [facility] 00:00:00 [facility] DTAP 2002-04-05 Completed [facility] 00:00:00 [facility] MMR 2002-04-05 Completed [facility] 00:00:00 [facility] Polio (IPV/OPV) 2002-04-05 Completed [facility] 00:00:00 [facility] DTAP 2002-04-05 Completed [facility] 00:00:00 [facility] MMR 2002-04-05 Completed [facility] 00:00:00 [facility] Polio (IPV/OPV) 2002-04-05 Completed [facility] 00:00:00 [facility] DTAP 2002-04-05 Completed [facility] 00:00:00 [facility] MMR 2002-04-05 Completed [facility] 00:00:00 [facility] Polio (IPV/OPV) 2002-04-05 Completed [facility] 00:00:00 [facility] DTAP 2002-04-05 Completed [facility] 00:00:00 [facility] MMR 2002-04-05 Completed [facility] 00:00:00 [facility] Polio (IPV/OPV) 2002-04-05 Completed [facility] 00:00:00 [facility] DTAP 2002-04-05 Completed [facility] 00:00:00 [facility] MMR 2002-04-05 Completed [facility] 00:00:00 [facility] Polio (IPV/OPV) 2002-04-05 Completed [facility] 00:00:00 [facility] DTAP 2002-04-05 Completed [facility] 00:00:00 [facility] MMR 2002-04-05 Completed [facility] 00:00:00 [facility] Polio (IPV/OPV) 2002-04-05 Completed [facility] 00:00:00 [facility] DTAP 2002-04-05 Completed [facility] 00:00:00 [facility] MMR 2002-04-05 Completed [facility] 00:00:00 [facility] Polio (IPV/OPV) 2002-04-05 Completed [facility] 00:00:00 [facility] DTAP 2002-04-05 Completed [facility] 00:00:00 [facility] MMR 2002-04-05 Completed [facility] 00:00:00 [facility] Polio (IPV/OPV) 2002-04-05 Completed [facility] 00:00:00 [facility] DTAP 2002-04-05 Completed [facility] 00:00:00 [facility] MMR 2002-04-05 Completed [facility] 00:00:00 [facility] Polio (IPV/OPV) 2002-04-05 Completed [facility] 00:00:00 [facility] DTAP 2002-04-05 Completed [facility] 00:00:00 [facility] MMR 2002-04-05 Completed [facility] 00:00:00 [facility] Polio (IPV/OPV) 2002-04-05 Completed [facility] 00:00:00 [facility] DTAP 2002-04-05 Completed [facility] 00:00:00 [facility] MMR 2002-04-05 Completed [facility] 00:00:00 [facility] Polio (IPV/OPV) 2002-04-05 Completed [facility] 00:00:00 [facility] DTAP 2002-04-05 Completed [facility] 00:00:00 [facility] MMR 2002-04-05 Completed [facility] 00:00:00 [facility] Polio (IPV/OPV) 2002-04-05 Completed [facility] 00:00:00 [facility] DTAP 2002-04-05 Completed [facility] 00:00:00 [facility] MMR 2002-04-05 Completed [facility] 00:00:00 [facility] Polio (IPV/OPV) 2002-04-05 Completed [facility] 00:00:00 [facility] DTAP 2002-04-05 Completed [facility] 00:00:00 [facility] MMR 2002-04-05 Completed [facility] 00:00:00 [facility] Polio (IPV/OPV) 2002-04-05 Completed [facility] 00:00:00 [facility] DTAP 2002-04-05 Completed [facility] 00:00:00 [facility] MMR 2002-04-05 Completed [facility] 00:00:00 [facility] Polio (IPV/OPV) 2002-04-05 Completed [facility] 00:00:00 [facility] DTAP 2002-04-05 Completed [facility] 00:00:00 [facility] MMR 2002-04-05 Completed [facility] 00:00:00 [facility] Polio (IPV/OPV) 2002-04-05 Completed [facility] 00:00:00 [facility] DTAP 2002-04-05 Completed [facility] 00:00:00 [facility] MMR 2002-04-05 Completed [facility] 00:00:00 [facility] Polio (IPV/OPV) 2002-04-05 Completed [facility] 00:00:00 [facility] DTAP 2002-04-05 Completed [facility] 00:00:00 [facility] MMR 2002-04-05 Completed [facility] 00:00:00 [facility] Polio (IPV/OPV) 2002-04-05 Completed [facility] 00:00:00 [facility] DTAP 2002-04-05 Completed [facility] 00:00:00 [facility] MMR 2002-04-05 Completed [facility] 00:00:00 [facility] Polio (IPV/OPV) 2002-04-05 Completed [facility] 00:00:00 [facility] DTAP 2002-04-05 Completed [facility] 00:00:00 [facility] MMR 2002-04-05 Completed [facility] 00:00:00 [facility] Polio (IPV/OPV) 2002-04-05 Completed [facility] 00:00:00 [facility] DTAP 2002-04-05 Completed [facility] 00:00:00 [facility] MMR 2002-04-05 Completed [facility] 00:00:00 [facility] Polio (IPV/OPV) 2002-04-05 Completed [facility] 00:00:00 [facility] DTAP 2002-04-05 Completed [facility] 00:00:00 [facility] MMR 2002-04-05 Completed [facility] 00:00:00 [facility] Polio (IPV/OPV) 2002-04-05 Completed [facility] 00:00:00 [facility] DTAP 2002-04-05 Completed [facility] 00:00:00 [facility] MMR 2002-04-05 Completed [facility] 00[facility]00:00 [facility] Polio (IPV/OPV) 2002-04-05 Completed [facility] 00:00:00 [facility] DTAP 2002-04-05 Completed [facility] 00:00:00 [facility] MMR 2002-04-05 Completed [facility] 00:00:00 [facility] Polio (IPV/OPV) 2002-04-05 Completed [facility] 00:00:00 [facility] DTAP 2002-04-05 Completed [facility] 00:00:00 [facility] MMR 2002-04-05 Completed [facility] 00:00:00 [facility] Polio (IPV/OPV) 2002-04-05 Completed [facility] 00:00:00 [facility] DTAP 2002-04-05 Completed [facility] 00[facility]00:00 [facility] MMR 2002-04-05 Completed [facility] 00:00:00 [facility] Polio (IPV/OPV) 2002-04-05 Completed [facility] 00[facility]00 [facility] DTAP 2002-04-05 Completed [facility] 00:00:00 [facility] MMR 2002-04-05 Completed [facility] 00:00:00 [facility] Polio (IPV/OPV) 2002-04-05 Completed [facility] 00:00:00 [facility] DTAP 2002-04-05 Completed [facility] 00:00:00 [facility] MMR 2002-04-05 Completed [facility] 00:00:00 [facility] Polio (IPV/OPV) 2002-04-05 Completed [facility] 00:00:00 [facility] DTAP 2002-04-05 Completed [facility] 00:00:00 [facility] MMR 2002-04-05 Completed [facility] 00:00:00 [facility] Polio (IPV/OPV) 2002-04-05 Completed [facility] 00:00:00 [facility] DTAP 2002-04-05 Completed [facility] 00:00:00 [facility] MMR 2002-04-05 Completed [facility] 00:00:00 [facility] Polio (IPV/OPV) 2002-04-05 Completed [facility] 00:00:00 [facility] DTAP 2002-04-05 Completed [facility] 00:00:00 [facility] MMR 2002-04-05 Completed [facility] 00:00:00 [facility] Polio (IPV/OPV) 2002-04-05 Completed [facility] 00:00:00 [facility] DTAP 2002-04-05 Completed [facility] 00:00:00 [facility] MMR 2002-04-05 Completed [facility] 00:00:00 [facility] Polio (IPV/OPV) 2002-04-05 Completed [facility] 00:00:00 [facility] DTAP 2002-04-05 Completed [facility] 00:00:00 [facility] MMR 2002-04-05 Completed [facility] 00:00:00 [facility] Polio (IPV/OPV) 2002-04-05 Completed [facility] 00:00:00 [facility] DTAP 2002-04-05 Completed [facility] 00:00:00 [facility] MMR 2002-04-05 Completed [facility] 00:00:00 [facility] Polio (IPV/OPV) 2002-04-05 Completed [facility] 00:00:00 [facility] DTAP 2001-11-28 Completed [facility] 00:00:00 [facility] MMR 2001-11-28 Completed [facility] 00:00:00 [facility] Polio (IPV/OPV) 2001-11-28 Completed [facility] 00:00:00 [facility] Varicella 2001-11-28 Completed [facility] (varivax)(chicken 00:00:00 [place] [facility] pox[facility] DTAP 2001-11-28 Completed [facility] 00:00:00 [facility] MMR 2001-11-28 Completed [facility] 00:00:00 [facility] Polio (IPV/OPV) 2001-11-28 Completed [facility] 00:00:00 [facility] Varicella 2001-11-28 Completed [facility] (varivax)(chicken 00:00:00 [place] [facility] DTAP 2001-11-28 Completed [facility] 00:00:00 [facility] MMR 2001-11-28 Completed [facility] 00:00:00 [facility] Polio (IPV/OPV) 2001-11-28 Completed [facility] 00:00:00 [facility] Varicella 2001-11-28 Completed [facility] (varivax)(chicken 00:00:00 [place] [facility]ox[facility] DTAP 2001-11-28 Completed [facility] 00:00:00 [facility] MMR 2001-11-28 Completed [facility] 00:00:00 [facility] Polio (IPV/OPV) 2001-11-28 Completed [facility] 00:00:00 [facility] Varicella 2001-11-28 Completed [facility] (varivax)(chicken 00:00:00 [place] [facility] DTAP 2001-11-28 Completed [facility] 00:00:00 [facility] MMR 2001-11-28 Completed [facility] 00:00:00 [facility] Polio (IPV/OPV) 2001-11-28 Completed [facility] 00:00:00 [facility] Varicella 2001-11-28 Completed [facility] (varivax)(chicken 00:00:00 [place] [facility] DTAP 2001-11-28 Completed [facility] 00:00:00 [facility] MMR 2001-11-28 Completed [facility] 00:00:00 [facility] Polio (IPV/OPV) 2001-11-28 Completed [facility] 00:00:00 [facility] Varicella 2001-11-28 Completed [facility] (varivax)(chicken 00:00:00 [place] [facility] pox[facility] DTAP 2001-11-28 Completed [facility] 00:00:00 [facility] MMR 2001-11-28 Completed [facility] 00:00:00 [facility] Polio (IPV/OPV) 2001-11-28 Completed [facility] 00:00:00 [facility] Varicella 2001-11-28 Completed [facility] (varivax)(chicken 00:00:00 [place] [facility] pox[facility] DTAP 2001-11-28 Completed [facility] 00:00:00 [facility] MMR 2001-11-28 Completed [facility] 00:00:00 [facility] Polio (IPV/OPV) 2001-11-28 Completed [facility] 00:00:00 [facility] Varicella 2001-11-28 Completed [facility] (varivax)(chicken 00:00:00 [place] [facility]ox[facility] DTAP 2001-11-28 Completed [facility] 00:00:00 [facility] MMR 2001-11-28 Completed [facility] 00:00:00 [facility] Polio (IPV/OPV) 2001-11-28 Completed [facility] 00:00:00 [facility] Varicella 2001-11-28 Completed [facility] (varivax)(chicken 00:00:00 [place] [facility]ox[facility] DTAP 2001-11-28 Completed [facility] 00:00:00 [facility] MMR 2001-11-28 Completed [facility] 00:00:00 [facility] Polio (IPV/OPV) 2001-11-28 Completed [facility] 00:00:00 [facility] Varicella 2001-11-28 Completed [facility] (varivax)(chicken 00:00:00 [place] [facility]ox[facility] DTAP 2001-11-28 Completed [facility] 00:00:00 [facility] MMR 2001-11-28 Completed [facility] 00:00:00 [facility] Polio (IPV/OPV) 2001-11-28 Completed [facility] 00:00:00 [facility] Varicella 2001-11-28 Completed [facility] (varivax)(chicken 00:00:00 [place] [facility] pox[facility] DTAP 2001-11-28 Completed [facility] 00:00:00 [facility] MMR 2001-11-28 Completed [facility] 00:00:00 [facility] Polio (IPV/OPV) 2001-11-28 Completed [facility] 00:00:00 [facility] Varicella 2001-11-28 Completed [facility] (varivax)(chicken 00:00:00 [place] [facility]ox[facility] DTAP 2001-11-28 Completed [facility] 00:00:00 [facility] MMR 2001-11-28 Completed [facility] 00:00:00 [facility] Polio (IPV/OPV) 2001-11-28 Completed [facility] 00:00:00 [facility] Varicella 2001-11-28 Completed [facility] (varivax)(chicken 00:00:00 [place] [facility] pox[facility] DTAP 2001-11-28 Completed [facility] 00:00:00 [facility] MMR 2001-11-28 Completed [facility] 00:00:00 [facility] Polio (IPV/OPV) 2001-11-28 Completed [facility] 00:00:00 [facility] Varicella 2001-11-28 Completed [facility] (varivax)(chicken 00:00:00 [place] [facility] DTAP 2001-11-28 Completed [facility] 00:00:00 [facility] MMR 2001-11-28 Completed [facility] 00:00:00 [facility] Polio (IPV/OPV) 2001-11-28 Completed [facility] 00:00:00 [facility] Varicella 2001-11-28 Completed [facility] (varivax)(chicken 00:00:00 [place] [facility] pox[facility] DTAP 2001-11-28 Completed [facility] 00:00:00 [facility] MMR 2001-11-28 Completed [facility] 00:00:00 [facility] Polio (IPV/OPV) 2001-11-28 Completed [facility] 00:00:00 [facility] Varicella 2001-11-28 Completed [facility] (varivax)(chicken 00:00:00 [place] [facility] pox[facility] DTAP 2001-11-28 Completed [facility] 00:00:00 [facility] MMR 2001-11-28 Completed [facility] 00:00:00 [facility] Polio (IPV/OPV) 2001-11-28 Completed [facility] 00:00:00 [facility] Varicella 2001-11-28 Completed [facility] (varivax)(chicken 00:00:00 [place] [facility] pox[facility] DTAP 2001-11-28 Completed [facility] 00:00:00 [facility] MMR 2001-11-28 Completed [facility] 00:00:00 [facility] Polio (IPV/OPV) 2001-11-28 Completed [facility] 00:00:00 [facility] Varicella 2001-11-28 Completed [facility] (varivax)(chicken 00:00:00 [place] [facility] pox[facility] DTAP 2001-11-28 Completed [facility] 00:00:00 [facility] MMR 2001-11-28 Completed [facility] 00:00:00 [facility] Polio (IPV/OPV) 2001-11-28 Completed [facility] 00:00:00 [facility] Varicella 2001-11-28 Completed [facility] (varivax)(chicken 00:00:00 [place] [facility] pox[facility] DTAP 2001-11-28 Completed [facility] 00:00:00 [facility] MMR 2001-11-28 Completed [facility] 00:00:00 [facility] Polio (IPV/OPV) 2001-11-28 Completed [facility] 00:00:00 [facility] Varicella 2001-11-28 Completed [facility] (varivax)(chicken 00:00:00 [place] [facility] pox[facility] DTAP 2001-11-28 Completed [facility] 00:00:00 [facility] MMR 2001-11-28 Completed [facility] 00:00:00 [facility] Polio (IPV/OPV) 2001-11-28 Completed [facility] 00:00:00 [facility] Varicella 2001-11-28 Completed [facility] (varivax)(chicken 00:00:00 [place] [facility] pox[facility] DTAP 2001-11-28 Completed [facility] 00:00:00 [facility] MMR 2001-11-28 Completed [facility] 00:00:00 [facility] Polio (IPV/OPV) 2001-11-28 Completed [facility] 00:00:00 [facility] Varicella 2001-11-28 Completed [facility] (varivax)(chicken 00:00:00 [place] [facility] pox[facility] DTAP 2001-11-28 Completed [facility] 00:00:00 [facility] MMR 2001-11-28 Completed [facility] 00:00:00 [facility] Polio (IPV/OPV) 2001-11-28 Completed [facility] 00:00:00 [facility] Varicella 2001-11-28 Completed [facility] (varivax)(chicken 00:00:00 [place] [facility] pox[facility] DTAP 2001-11-28 Completed [facility] 00:00:00 [facility] MMR 2001-11-28 Completed [facility] 00:00:00 [facility] Polio (IPV/OPV) 2001-11-28 Completed [facility] 00:00:00 [facility] Varicella 2001-11-28 Completed [facility] of (varivax)(chicken 00:00:00 [place] [facility] pox[facility] DTAP 2001-11-28 Completed [facility] 00:00:00 [facility] MMR 2001-11-28 Completed [facility] 00:00:00 [facility] Polio (IPV/OPV) 2001-11-28 Completed [facility] 00:00:00 [facility] Varicella 2001-11-28 Completed [facility] (varivax)(chicken 00:00:00 [place] [facility] pox[facility] DTAP 2001-11-28 Completed [facility] 00:00:00 [facility] MMR 2001-11-28 Completed [facility] 00:00:00 [facility] Polio (IPV/OPV) 2001-11-28 Completed [facility] 00:00:00 [facility] Varicella 2001-11-28 Completed [facility] (varivax)(chicken 00:00:00 [place] [facility] pox[facility] DTAP 2001-11-28 Completed [facility] 00:00:00 [facility] MMR 2001-11-28 Completed [facility] 00:00:00 [facility] Polio (IPV/OPV) 2001-11-28 Completed [facility] 00:00:00 [facility] Varicella 2001-11-28 Completed [facility] (varivax)(chicken 00:00:00 [place] [facility] pox[facility] DTAP 2001-11-28 Completed [facility] 00:00:00 [facility] MMR 2001-11-28 Completed [facility] 00:00:00 [facility] Polio (IPV/OPV) 2001-11-28 Completed [facility] 00:00:00 [facility] Varicella 2001-11-28 Completed [facility] (varivax)(chicken 00:00:00 [place] [facility] pox[facility] DTAP 2001-11-28 Completed [facility] 00:00:00 [facility] MMR 2001-11-28 Completed [facility] 00:00:00 [facility] Polio (IPV/OPV) 2001-11-28 Completed [facility] 00:00:00 [facility] Varicella 2001-11-28 Completed [facility] (varivax)(chicken 00:00:00 [place] [facility] pox[facility] DTAP 2001-11-28 Completed [facility] 00:00:00 [facility] MMR 2001-11-28 Completed [facility] 00:00:00 [facility] Polio (IPV/OPV) 2001-11-28 Completed [facility] 00:00:00 [facility] Varicella 2001-11-28 Completed [facility] (varivax)(chicken 00:00:00 [place] [facility] pox[facility] DTAP 2001-11-28 Completed [facility] 00:00:00 [facility] MMR 2001-11-28 Completed [facility] 00:00:00 [facility] Polio (IPV/OPV) 2001-11-28 Completed [facility] 00:00:00 [facility] Varicella 2001-11-28 Completed [facility] (varivax)(chicken 00:00:00 [place] [facility] pox[facility] DTAP 2001-11-28 Completed [facility] 00:00:00 [facility] MMR 2001-11-28 Completed [facility] 00:00:00 [facility] Polio (IPV/OPV) 2001-11-28 Completed [facility] 00:00:00 [facility] Varicella 2001-11-28 Completed [facility] (varivax)(chicken 00:00:00 [place] [facility] pox[facility] DTAP 2001-11-28 Completed [facility] 00:00:00 [facility] MMR 2001-11-28 Completed [facility] 00:00:00 [facility] Polio (IPV/OPV) 2001-11-28 Completed [facility] 00:00:00 [facility] Varicella 2001-11-28 Completed [facility] (varivax)(chicken 00:00:00 [place] [facility] pox[facility] DTAP 2001-11-28 Completed [facility] 00:00:00 [facility] MMR 2001-11-28 Completed [facility] 00:00:00 [facility] Polio (IPV/OPV) 2001-11-28 Completed [facility] 00:00:00 [facility] Varicella 2001-11-28 Completed [facility] (varivax)(chicken 00:00:00 [place] [facility] pox[facility] DTAP 2001-11-28 Completed [facility] 00:00:00 [facility] MMR 2001-11-28 Completed [facility] 00:00:00 [facility] Polio (IPV/OPV) 2001-11-28 Completed [facility] 00:00:00 [facility] Varicella 2001-11-28 Completed [facility] (varivax)(chicken 00:00:00 [place] [facility] pox) [facility] DTAP 2001-11-28 Completed [facility] 00:00:00 [facility] MMR 2001-11-28 Completed [facility] 00:00:00 [facility] Polio (IPV/OPV) 2001-11-28 Completed [facility] 00:00:00 [facility] Varicella 2001-11-28 Completed [facility] (varivax)(chicken 00:00:00 [place] [facility] pox) [facility] DTAP 2001-11-28 Completed [facility] 00:00:00 [facility] MMR 2001-11-28 Completed [facility] 00:00:00 [facility] Polio (IPV/OPV) 2001-11-28 Completed [facility] 00:00:00 [facility] Varicella 2001-11-28 Completed [facility] (varivax)(chicken 00:00:00 [place] [facility] pox[facility] DTAP 2001-11-28 Completed [facility] 00:00:00 [facility] MMR 2001-11-28 Completed [facility] 00:00:00 [facility] Polio (IPV/OPV) 2001-11-28 Completed [facility] 00:00:00 [facility] Varicella 2001-11-28 Completed [facility] (varivax)(chicken 00:00:00 [place] [facility] pox[facility] DTAP 2001-11-28 Completed [facility] 00:00:00 [facility] MMR 2001-11-28 Completed [facility] 00:00:00 [facility] Polio (IPV/OPV) 2001-11-28 Completed [facility] 00:00:00 [facility] Varicella 2001-11-28 Completed [facility] (varivax)(chicken 00:00:00 [place] [facility] pox[facility] DTAP 2001-11-28 Completed [facility] 00:00:00 [facility] MMR 2001-11-28 Completed [facility] 00:00:00 [facility] Polio (IPV/OPV) 2001-11-28 Completed [facility] 00:00:00 [facility] Varicella 2001-11-28 Completed [facility] (varivax)(chicken 00:00:00 [place] [facility] pox[facility] DTAP 2001-11-28 Completed [facility] 00:00:00 [facility] MMR 2001-11-28 Completed [facility] 00:00:00 [facility] Polio (IPV/OPV) 2001-11-28 Completed [facility] 00:00:00 [facility] Varicella 2001-11-28 Completed [facility] (varivax)(chicken 00:00:00 [place] [facility] p[facility] DTAP 2001-11-28 Completed [facility] 00:00:00 [facility] MMR 2001-11-28 Completed [facility] 00:00:00 [facility] Polio (IPV/OPV) 2001-11-28 Completed [facility] 00:00:00 [facility] Varicella 2001-11-28 Completed [facility] (varivax)(chicken 00:00:00 [place] [facility] p[facility] DTAP 2001-11-28 Completed [facility] 00:00:00 [facility] MMR 2001-11-28 Completed [facility] 00:00:00 [facility] Polio (IPV/OPV) 2001-11-28 Completed [facility] 00:00:00 [facility] Varicella 2001-11-28 Completed [facility] (varivax)(chicken 00:00:00 [place] [facility] p[facility] DTAP 2001-11-28 Completed [facility] 00:00:00 [facility] MMR 2001-11-28 Completed [facility] 00:00:00 [facility] Polio (IPV/OPV) 2001-11-28 Completed [facility] 00:00:00 [facility] Varicella 2001-11-28 Completed [facility] (varivax)(chicken 00:00:00 [place] [facility] pox[facility] DTAP 2001-11-28 Completed [facility] 00:00:00 [facility] MMR 2001-11-28 Completed [facility] 00:00:00 [facility] Polio (IPV/OPV) 2001-11-28 Completed [facility] 00:00:00 [facility] Varicella 2001-11-28 Completed [facility] (varivax)(chicken 00:00:00 [place] [facility] pox[facility] DTAP 2001-11-28 Completed [facility] 00:00:00 [facility] MMR 2001-11-28 Completed [facility] 00:00:00 [facility] Polio (IPV/OPV) 2001-11-28 Completed [facility] 00:00:00 [facility] Varicella 2001-11-28 Completed [facility] (varivax)(chicken 00:00:00 [place] [facility] pox[facility] DTAP 2001-11-28 Completed [facility] 00:00:00 [facility] MMR 2001-11-28 Completed [facility] 00:00:00 [facility] Polio (IPV/OPV) 2001-11-28 Completed [facility] 00:00:00 [facility] Varicella 2001-11-28 Completed [facility] (varivax)(chicken 00:00:00 [place] [facility] pox[facility] DTAP 2001-11-28 Completed [facility] 00:00:00 [facility] MMR 2001-11-28 Completed [facility] 00:00:00 [facility] Polio (IPV/OPV) 2001-11-28 Completed [facility] 00:00:00 [facility] Varicella 2001-11-28 Completed [facility] (varivax)(chicken 00:00:00 [place] [facility] pox[facility] DTAP 2001-11-28 Completed [facility] 00:00:00 [facility] MMR 2001-11-28 Completed [facility] 00:00:00 [facility] Polio (IPV/OPV) 2001-11-28 Completed [facility] 00:00:00 [facility] Varicella 2001-11-28 Completed [facility] (varivax)(chicken 00:00:00 [place] [facility] pox[facility] DTAP 2001-11-28 Completed [facility] 00:00:00 [facility] MMR 2001-11-28 Completed [facility] 00:00:00 [facility] Polio (IPV/OPV) 2001-11-28 Completed [facility] 00:00:00 [facility] Varicella 2001-11-28 Completed [facility] (varivax)(chicken 00:00:00 [place] [facility] pox[facility] DTAP 2001-11-28 Completed [facility] 00:00:00 [facility] MMR 2001-11-28 Completed [facility] 00:00:00 [facility] Polio (IPV/OPV) 2001-11-28 Completed [facility] 00:00:00 [facility] Varicella 2001-11-28 Completed [facility] (varivax)(chicken 00:00:00 [place] [facility] DTAP 2001-11-28 Completed [facility] 00:00:00 [facility] MMR 2001-11-28 Completed [facility] 00:00:00 [facility] Polio (IPV/OPV) 2001-11-28 Completed [facility] 00:00:00 [facility] Varicella 2001-11-28 Completed [facility] (varivax)(chicken 00:00:00 [place] [facility] pox[facility] DTAP 2001-11-28 Completed [facility] 00:00:00 [facility] MMR 2001-11-28 Completed [facility] 00:00:00 [facility] [facility] Polio (IPV/OPV) 2001-11-28 Completed [facility] 00:00:00 [facility] Varicella 2001-11-28 Completed [facility] of (varivax)(chicken 00:00:00 [place] [facility]ox[facility] DTAP 2001-11-28 Completed [facility] 00:00:00 [facility] MMR 2001-11-28 Completed [facility] 00:00:00 [facility] Polio (IPV/OPV) 2001-11-28 Completed [facility] 00:00:00 [facility] Varicella 2001-11-28 Completed [facility] (varivax)(chicken 00:00:00 [place] [facility]ox[facility] DTAP 2001-11-28 Completed [facility] 00:00:00 [facility] MMR 2001-11-28 Completed [facility] 00:00:00 [facility] Polio (IPV/OPV) 2001-11-28 Completed [facility] 00:00:00 [facility] Varicella 2001-11-28 Completed [facility] (varivax)(chicken 00:00:00 [place] [facility]ox[facility] DTAP 2001-11-28 Completed [facility] 00:00:00 [facility] MMR 2001-11-28 Completed [facility] 00:00:00 [facility] Polio (IPV/OPV) 2001-11-28 Completed [facility] 00:00:00 [facility] Varicella 2001-11-28 Completed [facility] (varivax)(chicken 00:00:00 [place] [facility] 2001-11-28 Completed [facility] 00:00:00 [facility] MMR 2001-11-28 Completed [facility] 00:00:00 [facility] Polio (IPV/OPV) 2001-11-28 Completed [facility] 00:00:00 [facility] Varicella 2001-11-28 Completed [facility] (varivax)(chicken 00:00:00 [place] [facility] pox[facility] DTAP 2001-11-28 Completed [facility] 00:00:00 [facility] MMR 2001-11-28 Completed [facility] 00:00:00 [facility] Polio (IPV/OPV) 2001-11-28 Completed [facility] 00:00:00 [facility] Varicella 2001-11-28 Completed [facility] (varivax)(chicken 00:00:00 [place] [facility] pox[facility] DTAP 2001-11-28 Completed [facility] 00:00:00 [facility] MMR 2001-11-28 Completed [facility] 00:00:00 [facility] Polio (IPV/OPV) 2001-11-28 Completed [facility] 00:00:00 [facility] Varicella 2001-11-28 Completed [facility] of (varivax)(chicken 00:00:00 [...] Branch DTAP 1999-11-18 Completed [facility] 00:00:00 [facility] HIB 4 Dose Schedule 1999-11-18 Completed [facility]ive rs[facility] 00:00:00 [facility] Hep B, Adol or Pedi 1999-11-18 Completed Unive rsity of Dosage 00:00:00 [facility] Polio (IPV/OPV) 1999-11-18 Completed [facility] 00:00:00 [facility] DTAP 1999-11-18 Completed [facility] 00:00:00 [facility] HIB 4 Dose Schedule 1999-11-18 Completed [facility] rs[facility] 00:00:00 [facility] Hep B, Adol or Pedi 1999-11-18 Completed [facility]ive rs[facility] of Dosage 00:00:00 [facility] Polio (IPV/OPV) 1999-11-18 Completed [facility] 00:00:00 [facility] DTAP 1999-11-18 Completed [facility] 00:00:00 [facility] HIB 4 Dose Schedule 1999-11-18 Completed [facility] rs[facility] 00:00:00 [facility] Hep B, Adol or Pedi 1999-11-18 Completed [facility] of Dosage 00:00:00 [facility] Polio (IPV/OPV) 1999-11-18 Completed [facility] 00:00:00 [facility] DTAP 1999-11-18 Completed [facility] 00:00:00 [facility] HIB 4 Dose Schedule 1999-11-18 Completed [facility] rs[facility] 00:00:00 [facility] Hep B, Adol or Pedi 1999-11-18 Completed [facility]ive rs[facility] of Dosage 00:00:00 [facility] Polio (IPV/OPV) 1999-11-18 Completed [facility] 00:00:00 [facility] DTAP 1999-11-18 Completed [facility] 00:00:00 [facility] HIB 4 Dose Schedule 1999-11-18 Completed [facility] 00:00:00 [place] [facility] Hep B, Adol or Pedi 1999-11-18 Completed [facility]ive rsity of Dosage 00:00:00 [facility] Polio (IPV/OPV) 1999-11-18 Completed [facility] 00:00:00 [facility] DTAP 1999-11-18 Completed [facility] 00:00:00 [facility] HIB 4 Dose Schedule 1999-11-18 Completed [facility] rs[facility] 00:00:00 [facility] Hep B, Adol or Pedi 1999-11-18 Completed [facility]ive rs[facility] of Dosage 00:00:00 [facility] Polio (IPV/OPV) 1999-11-18 Completed [facility] 00:00:00 [facility] DTAP 1999-11-18 Completed [facility] 00:00:00 [facility] HIB 4 Dose Schedule 1999-11-18 Completed [facility] rs[facility] 00:00:00 [facility] Hep B, Adol or Pedi 1999-11-18 Completed [facility]ive rs[facility] of Dosage 00:00:00 [facility] Polio (IPV/OPV) 1999-11-18 Completed [facility] 00:00:00 [facility] DTAP 1999-11-18 Completed [facility] 00:00:00 [facility] HIB 4 Dose Schedule 1999-11-18 Completed [facility] rs[facility] 00:00:00 [facility] Hep B, Adol or Pedi 1999-11-18 Completed [facility]ive rs[facility] of Dosage 00:00:00 [facility] Polio (IPV/OPV) 1999-11-18 Completed [facility] 00:00:00 [facility] DTAP 1999-11-18 Completed [facility] 00:00:00 [facility] HIB 4 Dose Schedule 1999-11-18 Completed [facility] rs[facility] 00:00:00 [facility] Hep B, Adol or Pedi 1999-11-18 Completed [facility]ive rs[facility] of Dosage 00:00:00 [facility] Polio (IPV/OPV) 1999-11-18 Completed [facility] 00:00:00 [facility] DTAP 1999-11-18 Completed [facility] 00:00:00 [facility] HIB 4 Dose Schedule 1999-11-18 Completed [facility]ive rs[facility] of 00:00:00 [facility] Hep B, Adol or Pedi 1999-11-18 Completed [facility]ive rsity of Dosage 00:00:00 [facility] Polio (IPV/OPV) 1999-11-18 Completed [facility] 00:00:00 [facility] DTAP 1999-11-18 Completed [facility] 00:00:00 [facility] HIB 4 Dose Schedule 1999-11-18 Completed [facility] rs[facility] of 00:00:00 [facility] Hep B, Adol or Pedi 1999-11-18 Completed [facility]ive rsity of Dosage 00:00:00 [facility] Polio (IPV/OPV) 1999-11-18 Completed [facility] 00:00:00 [facility] DTAP 1999-11-18 Completed [facility] 00:00:00 [facility] HIB 4 Dose Schedule 1999-11-18 Completed [facility] rs[facility] of 00:00:00 [facility] Hep B, Adol or Pedi 1999-11-18 Completed [facility]ive rs[facility] of Dosage 00:00:00 [facility] Polio (IPV/OPV) 1999-11-18 Completed [facility] 00:00:00 [facility] DTAP 1999-11-18 Completed [facility] 00:00:00 [facility] HIB 4 Dose Schedule 1999-11-18 Completed [facility] 00:00:00 [facility] Hep B, Adol or Pedi 1999-11-18 Completed [facility]ive rs[facility] of Dosage 00:00:00 [facility] Polio (IPV/OPV) 1999-11-18 Completed [facility] 00:00:00 [facility] DTAP 1999-11-18 Completed [facility] 00:00:00 [facility] HIB 4 Dose Schedule 1999-11-18 Completed [facility] rs[facility] of 00:00:00 [facility] Hep B, Adol or Pedi 1999-11-18 Completed [facility]ive rsity of Dosage 00:00:00 [facility] Polio (IPV/OPV) 1999-11-18 Completed [facility] 00:00:00 [facility] DTAP 1999-11-18 Completed [facility] 00:00:00 [facility] HIB 4 Dose Schedule 1999-11-18 Completed [facility] 00:00:00 [place] [facility] Hep B, Adol or Pedi 1999-11-18 Completed [facility]ive rsity of Dosage 00:00:00 [facility] Polio (IPV/OPV) 1999-11-18 Completed [facility] 00:00:00 [facility] DTAP 1999-11-18 Completed [facility] 00:00:00 [facility] HIB 4 Dose Schedule 1999-11-18 Completed [facility] rs[facility] of 00:00:00 [facility] Hep B, Adol or Pedi 1999-11-18 Completed [facility]ive rs[facility] of Dosage 00:00:00 [facility] Polio (IPV/OPV) 1999-11-18 Completed [facility] 00:00:00 [facility] DTAP 1999-11-18 Completed [facility] 00:00:00 [facility] HIB 4 Dose Schedule 1999-11-18 Completed [facility] rs[facility] 00:00:00 [facility] Hep B, Adol or Pedi 1999-11-18 Completed [facility] of Dosage 00:00:00 [facility] Polio (IPV/OPV) 1999-11-18 Completed [facility] 00:00:00 [facility] DTAP 1999-11-18 Completed [facility] 00:00:00 [facility] HIB 4 Dose Schedule 1999-11-18 Completed [facility] rs[facility] 00:00:00 [facility] Hep B, Adol or Pedi 1999-11-18 Completed [facility]ive rs[facility] of Dosage 00:00:00 [facility] Polio (IPV/OPV) 1999-11-18 Completed [facility] 00:00:00 [facility] DTAP 1999-11-18 Completed [facility] 00:00:00 [facility] HIB 4 Dose Schedule 1999-11-18 Completed [facility] 00:00:00 [facility] Hep B, Adol or Pedi 1999-11-18 Completed [facility]ive rs[facility] of Dosage 00:00:00 [facility] Polio (IPV/OPV) 1999-11-18 Completed [facility] 00:00:00 [facility] DTAP 1999-11-18 Completed [facility] 00:00:00 [facility] HIB 4 Dose Schedule 1999-11-18 Completed [facility] rs[facility] of 00:00:00 [facility] Hep B, Adol or Pedi 1999-11-18 Completed [facility]ive rs[facility] of Dosage 00:00:00 [facility] Polio (IPV/OPV) 1999-11-18 Completed [facility] 00:00:00 [facility] DTAP 1999-11-18 Completed [facility] 00:00:00 [facility] HIB 4 Dose Schedule 1999-11-18 Completed [facility] 00:00:00 [facility] Hep B, Adol or Pedi 1999-11-18 Completed [facility]ive rs[facility] of Dosage 00:00:00 [facility] Polio (IPV/OPV) 1999-11-18 Completed [facility] 00:00:00 [facility] DTAP 1999-11-18 Completed [facility] 00:00:00 [facility] HIB 4 Dose Schedule 1999-11-18 Completed [facility] 00:00:00 [facility] Hep B, Adol or Pedi 1999-11-18 Completed [facility]ive rs[facility] of Dosage 00:00:00 [facility] Polio (IPV/OPV) 1999-11-18 Completed [facility] 00:00:00 [facility] DTAP 1999-11-18 Completed [facility] 00:00:00 [facility] HIB 4 Dose Schedule 1999-11-18 Completed [facility] 00:00:00 [facility] Hep B, Adol or Pedi 1999-11-18 Completed [facility] rs[facility] of Dosage 00:00:00 [facility] Polio (IPV/OPV) 1999-11-18 Completed [facility] 00:00:00 [facility] DTAP 1999-11-18 Completed [facility] 00:00:00 [facility] HIB 4 Dose Schedule 1999-11-18 Completed [facility] 00:00:00 [facility] Hep B, Adol or Pedi 1999-11-18 Completed [facility] of Dosage 00:00:00 [facility] Polio (IPV/OPV) 1999-11-18 Completed [facility] 00:00:00 [facility] DTAP 1999-11-18 Completed [facility] 00:00:00 [facility] HIB 4 Dose Schedule 1999-11-18 Completed [facility] rs[facility] 00:00:00 [facility] Hep B, Adol or Pedi 1999-11-18 Completed [facility] of Dosage 00:00:00 [facility] Polio (IPV/OPV) 1999-11-18 Completed [facility] 00:00:00 [facility] DTAP 1999-11-18 Completed [facility] 00:00:00 [facility] HIB 4 Dose Schedule 1999-11-18 Completed [facility] 00:00:00 [facility] Hep B, Adol or Pedi 1999-11-18 Completed [facility] rs[facility] of Dosage 00:00:00 [facility] Polio (IPV/OPV) 1999-11-18 Completed [facility] 00:00:00 [facility] DTAP 1999-11-18 Completed [facility] 00:00:00 [facility] HIB 4 Dose Schedule 1999-11-18 Completed [facility] 00:00:00 [facility] Hep B, Adol or Pedi 1999-11-18 Completed [facility] rs[facility] of Dosage 00:00:00 [facility] Polio (IPV/OPV) 1999-11-18 Completed [facility] 00:00:00 [facility] DTAP 1999-11-18 Completed [facility] 00:00:00 [facility] HIB 4 Dose Schedule 1999-11-18 Completed [facility] 00:00:00 [facility] Hep B, Adol or Pedi 1999-11-18 Completed [facility]ive rs[facility] of Dosage 00:00:00 [facility] Polio (IPV/OPV) 1999-11-18 Completed [facility] 00:00:00 [facility] DTAP 1999-11-18 Completed [facility] 00:00:00 [facility] HIB 4 Dose Schedule 1999-11-18 Completed [facility] 00:00:00 [facility] Hep B, Adol or Pedi 1999-11-18 Completed [facility] rs[facility] of Dosage 00:00:00 [facility] Polio (IPV/OPV) 1999-11-18 Completed [facility] 00:00:00 [place] [facility] DTAP 1999-11-18 Completed [facility] 00:00:00 [facility] HIB 4 Dose Schedule 1999-11-18 Completed [facility] 00:00:00 [place] [facility] Hep B, Adol or Pedi 1999-11-18 Completed [facility] rs[facility] of Dosage 00:00:00 [facility] Polio (IPV/OPV) 1999-11-18 Completed [facility] 00:00:00 [facility] DTAP 1999-11-18 Completed [facility] 00:00:00 [facility] HIB 4 Dose Schedule 1999-11-18 Completed [facility] 00:00:00 [facility] Hep B, Adol or Pedi 1999-11-18 Completed [facility]ive rs[facility] of Dosage 00:00:00 [facility] Polio (IPV/OPV) 1999-11-18 Completed [facility] 00:00:00 [facility] DTAP 1999-11-18 Completed [facility] 00:00:00 [facility] HIB 4 Dose Schedule 1999-11-18 Completed [facility] 00:00:00 [facility] Hep B, Adol or Pedi 1999-11-18 Completed [facility] rs[facility] of Dosage 00:00:00 [facility] Polio (IPV/OPV) 1999-11-18 Completed [facility] 00:00:00 [facility] DTAP 1999-11-18 Completed [facility] 00:00:00 [facility] HIB 4 Dose Schedule 1999-11-18 Completed [facility] rs[facility] of 00:00:00 [facility] Hep B, Adol or Pedi 1999-11-18 Completed [facility] of Dosage 00:00:00 [facility] Polio (IPV/OPV) 1999-11-18 Completed [facility] 00:00:00 [facility] DTAP 1999-11-18 Completed [facility] 00:00:00 [facility] HIB 4 Dose Schedule 1999-11-18 Completed [facility] 00:00:00 [facility] Hep B, Adol or Pedi 1999-11-18 Completed [facility] of Dosage 00:00:00 [facility] Polio (IPV/OPV) 1999-11-18 Completed [facility] 00:00:00 [facility] DTAP 1999-11-18 Completed [facility] 00:00:00 [facility] HIB 4 Dose Schedule 1999-11-18 Completed [facility] of 00:00:00 [facility] Hep B, Adol or Pedi 1999-11-18 Completed [facility] of Dosage 00:00:00 [facility] Polio (IPV/OPV) 1999-11-18 Completed [facility] 00:00:00 [facility] DTAP 1999-11-18 Completed [facility] 00:00:00 [facility] HIB 4 Dose Schedule 1999-11-18 Completed [facility] 00:00:00 [place] [facility] Hep B, Adol or Pedi 1999-11-18 Completed [facility] rs[facility] of Dosage 00:00:00 [facility] Polio (IPV/OPV) 1999-11-18 Completed [facility] 00:00:00 [facility] DTAP 1999-11-18 Completed [facility] 00:00:00 [facility] HIB 4 Dose Schedule 1999-11-18 Completed [facility] of 00:00:00 [facility] Hep B, Adol or Pedi 1999-11-18 Completed [facility] of Dosage 00:00:00 [facility] Polio (IPV/OPV) 1999-11-18 Completed [facility] 00:00:00 [facility] DTAP 1999-11-18 Completed [facility] 00:00:00 [facility] HIB 4 Dose Schedule 1999-11-18 Completed [facility] of 00:00:00 [facility] Hep B, Adol or Pedi 1999-11-18 Completed [facility] rs[facility] of Dosage 00:00:00 [facility] Polio (IPV/OPV) 1999-11-18 Completed [facility] 00:00:00 [facility] DTAP 1999-11-18 Completed [facility] 00:00:00 [facility] HIB 4 Dose Schedule 1999-11-18 Completed [facility] 00:00:00 [facility] Hep B, Adol or Pedi 1999-11-18 Completed [facility] of Dosage 00:00:00 [facility] Polio (IPV/OPV) 1999-11-18 Completed [facility] 00:00:00 [facility] DTAP 1999-11-18 Completed [facility] 00:00:00 [facility] HIB 4 Dose Schedule 1999-11-18 Completed [facility] of 00:00:00 [facility] Hep B, Adol or Pedi 1999-11-18 Completed [facility]ive [facility] of Dosage 00:00:00 [facility] Polio (IPV/OPV) 1999-11-18 Completed [facility] 00:00:00 [facility] DTAP 1999-11-18 Completed [facility] 00:00:00 [facility] HIB 4 Dose Schedule 1999-11-18 Completed [facility] of 00:00:00 [facility] Hep B, Adol or Pedi 1999-11-18 Completed [facility] of Dosage 00:00:00 [facility] Polio (IPV/OPV) 1999-11-18 Completed [facility] 00:00:00 [facility] DTAP 1999-11-18 Completed [facility] 00:00:00 [facility] HIB 4 Dose Schedule 1999-11-18 Completed [facility] 00:00:00 [facility] Hep B, Adol or Pedi 1999-11-18 Completed [facility] of Dosage 00:00:00 [facility] Polio (IPV/OPV) 1999-11-18 Completed [facility] 00:00:00 [facility] DTAP 1999-11-18 Completed [facility] 00:00:00 [facility] HIB 4 Dose Schedule 1999-11-18 Completed [facility] 00:00:00 [facility] Hep B, Adol or Pedi 1999-11-18 Completed [facility] of Dosage 00:00:00 [facility] Polio (IPV/OPV) 1999-11-18 Completed [facility] 00:00:00 [facility] DTAP 1999-11-18 Completed [facility] 00:00:00 [facility] HIB 4 Dose Schedule 1999-11-18 Completed [facility] 00:00:00 [facility] Hep B, Adol or Pedi 1999-11-18 Completed [facility] of Dosage 00:00:00 [facility] Polio (IPV/OPV) 1999-11-18 Completed [facility] 00:00:00 [facility] DTAP 1999-11-18 Completed [facility] 00:00:00 [facility] HIB 4 Dose Schedule 1999-11-18 Completed [facility] 00:00:00 [facility] Hep B, Adol or Pedi 1999-11-18 Completed [facility] of Dosage 00:00:00 [facility] Polio (IPV/OPV) 1999-11-18 Completed [facility] 00:00:00 [facility] DTAP 1999-11-18 Completed [facility] 00:00:00 [facility] HIB 4 Dose Schedule 1999-11-18 Completed [facility] 00:00:00 [facility] Hep B, Adol or Pedi 1999-11-18 Completed [facility] of Dosage 00:00:00 [facility] Polio (IPV/OPV) 1999-11-18 Completed [facility] 00:00:00 [facility] DTAP 1999-11-18 Completed [facility] 00:00:00 [facility] HIB 4 Dose Schedule 1999-11-18 Completed [facility] 00:00:00 [facility] Hep B, Adol or Pedi 1999-11-18 Completed [facility] of Dosage 00:00:00 [facility] Polio (IPV/OPV) 1999-11-18 Completed [facility] 00:00:00 [facility] DTAP 1999-11-18 Completed [facility] 00:00:00 [facility] HIB 4 Dose Schedule 1999-11-18 Completed [facility] 00:00:00 [facility] Hep B, Adol or Pedi 1999-11-18 Completed [facility] of Dosage 00:00:00 [facility] Polio (IPV/OPV) 1999-11-18 Completed [facility] 00:00:00 [facility] DTAP 1999-11-18 Completed [facility] 00:00:00 [facility] HIB 4 Dose Schedule 1999-11-18 Completed [facility] 00:00:00 [facility] Hep B, Adol or Pedi 1999-11-18 Completed [facility] Dosage 00:00:00 [facility] Polio (IPV/OPV) 1999-11-18 Completed [facility]00 [facility] DTAP 1999-11-18 Completed [facility] 00:00:00 [facility] HIB 4 Dose Schedule 1999-11-18 Completed [facility] 00:00:00 [facility] Hep B, Adol or Pedi 1999-11-18 Completed [facility] Dosage 00:00:00 [facility] Polio (IPV/OPV) 1999-11-18 Completed [facility] 00:00:00 [facility] DTAP 1999-11-18 Completed [facility] 00:00:00 [facility] HIB 4 Dose Schedule 1999-11-18 Completed [facility] 00:00:00 [facility] Hep B, Adol or Pedi 1999-11-18 Completed [facility] Dosage 00:00:00 [facility] Polio (IPV/OPV) 1999-11-18 Completed [facility] 00:00:00 [facility] DTAP 1999-11-18 Completed [facility] 00:00:00 [facility] HIB 4 Dose Schedule 1999-11-18 Completed [facility] 00:00:00 [facility] Hep B, Adol or Pedi 1999-11-18 Completed [facility] Dosage 00:00:00 [facility] Polio (IPV/OPV) 1999-11-18 Completed [facility] 00:00:00 [facility] DTAP 1999-11-18 Completed [facility] 00:00:00 [facility] HIB 4 Dose Schedule 1999-11-18 Completed [facility] 00:00:00 [facility] Hep B, Adol or Pedi 1999-11-18 Completed [facility] Dosage 00:00:00 [facility] Polio (IPV/OPV) 1999-11-18 Completed [facility] 00:00:00 [facility] DTAP 1999-11-18 Completed [facility] 00:00:00 [facility] HIB 4 Dose Schedule 1999-11-18 Completed [facility] 00:00:00 [facility] Hep B, Adol or Pedi 1999-11-18 Completed [facility] Dosage 00:00:00 [facility] Polio (IPV/OPV) 1999-11-18 Completed [facility] 00:00:00 [facility] DTAP 1999-11-18 Completed [facility] 00:00:00 [facility] HIB 4 Dose Schedule 1999-11-18 Completed [facility] 00:00:00 [facility] Hep B, Adol or Pedi 1999-11-18 Completed [facility] Dosage 00:00:00 [facility] Polio (IPV/OPV) 1999-11-18 Completed [facility] 00:00:00 [facility] DTAP 1999-11-18 Completed [facility] 00:00:00 [facility] HIB 4 Dose Schedule 1999-11-18 Completed [facility] 00:00:00 [facility] Hep B, Adol or Pedi 1999-11-18 Completed [facility] Dosage 00:00:00 [facility] Polio (IPV/OPV) 1999-11-18 Completed [facility] 00:00:00 [facility] DTAP 1999-11-18 Completed [facility] 00:00:00 [facility] HIB 4 Dose Schedule 1999-11-18 Completed [facility] 00:00:00 [facility] Hep B, Adol or Pedi 1999-11-18 Completed [facility] Dosage 00:00:00 [facility] Polio (IPV/OPV) 1999-11-18 Completed [facility] 00:00:00 [facility] DTAP 1999-11-18 Completed [facility] 00:00:00 [facility] HIB 4 Dose Schedule 1999-11-18 Completed [facility] 00:00:00 [facility] Hep B, Adol or Pedi 1999-11-18 Completed [facility] Dosage 00:00:00 [facility] Polio (IPV/OPV) 1999-11-18 Completed [facility] 00:00:00 [facility] DTAP 1999-11-18 Completed [facility] 00:00:00 [facility] HIB 4 Dose Schedule 1999-11-18 Completed [facility] 00:00:00 [facility] Hep B, Adol or Pedi 1999-11-18 Completed [facility] Dosage 00:00:00 [facility] Polio (IPV/OPV) 1999-11-18 Completed [facility] 00:00:00 [facility] DTAP 1998 Completed [facility] 00:00:00 [facility] HIB 4 Dose Schedule 1998 Completed [facility] 00:00:00 [facility] Hep B, Adol or Pedi 1998 Completed [facility] Dosage 00:00:00 [facility] Polio (IPV/OPV) 1998 Completed [facility] 00:00:00 [facility] DTAP 1998 Completed [facility] 00:00:00 [facility] HIB 4 Dose Schedule 1998 Completed [facility] 00:00:00 [facility] Hep B, Adol or Pedi 1998 Completed [facility] Dosage 00:00:00 [facility] Polio (IPV/OPV) 1998 Completed [facility] 00:00:00 [facility] DTAP 1998 Completed [facility] 00:00:00 [facility] HIB 4 Dose Schedule 1998 Completed [facility] 00:00:00 [facility] Hep B, Adol or Pedi 1998 Completed [facility] Dosage 00:00:00 [facility] Polio (IPV/OPV) 1998 Completed [facility] 00:00:00 [facility] DTAP 1998 Completed [facility] 00:00:00 [facility] HIB 4 Dose Schedule 1998 Completed [facility] 00:00:00 [facility] Hep B, Adol or Pedi 1998 Completed [facility] Dosage 00:00:00 [facility] Polio (IPV/OPV) 1998 Completed [facility] 00:00:00 [facility] DTAP 1998 Completed [facility] 00:00:00 [facility] HIB 4 Dose Schedule 1998 Completed [facility] 00:00:00 [facility] Hep B, Adol or Pedi 1998 Completed [facility] Dosage 00:00:00 [facility] Polio (IPV/OPV) 1998 Completed [facility] 00:00:00 [facility] DTAP 1998 Completed [facility] 00:00:00 [facility] HIB 4 Dose Schedule 1998 Completed [facility] 00:00:00 [facility] Hep B, Adol or Pedi 1998 Completed [facility] Dosage 00:00:00 [facility] Polio (IPV/OPV) 1998 Completed [facility] 00:00:00 [facility] DTAP 1998 Completed [facility] 00:00:00 [facility] HIB 4 Dose Schedule 1998 Completed [facility] 00:00:00 [facility] Hep B, Adol or Pedi 1998 Completed [facility] Dosage 00:00:00 [facility] Polio (IPV/OPV) 1998 Completed [facility] 00:00:00 [facility] DTAP 1998 Completed [facility] 00:00:00 [facility] HIB 4 Dose Schedule 1998 Completed [facility] 00:00:00 [facility] Hep B, Adol or Pedi 1998 Completed [facility] Dosage 00:00:00 [facility] Polio (IPV/OPV) 1998 Completed [facility] 00:00:00 [facility] DTAP 1998 Completed [facility] 00:00:00 [facility] HIB 4 Dose Schedule 1998 Completed [facility] 00:00:00 [facility] Hep B, Adol or Pedi 1998 Completed [facility] Dosage 00:00:00 [facility] Polio (IPV/OPV) 1998 Completed [facility] 00:00:00 [facility] DTAP 1998 Completed [facility] 00:00:00 [facility] HIB 4 Dose Schedule 1998 Completed [facility] 00:00:00 [facility] Hep B, Adol or Pedi 1998 Completed [facility] Dosage 00:00:00 [facility] Polio (IPV/OPV) 1998 Completed [facility] 00:00:00 [facility] DTAP 1998 Completed [facility] 00:00:00 [facility] HIB 4 Dose Schedule 1998 Completed [facility] 00:00:00 [facility] Hep B, Adol or Pedi 1998 Completed [facility] Dosage 00:00:00 [facility] Polio (IPV/OPV) 1998 Completed [facility] 00:00:00 [facility] DTAP 1998 Completed [facility] 00:00:00 [facility] HIB 4 Dose Schedule 1998 Completed [facility] 00:00:00 [facility] Hep B, Adol or Pedi 1998 Completed [facility] Dosage 00:00:00 [facility] Polio (IPV/OPV) 1998 Completed [facility] 00:00:00 [facility] DTAP 1998 Completed [facility] 00:00:00 [facility] HIB 4 Dose Schedule 1998 Completed [facility] 00:00:00 [facility] Hep B, Adol or Pedi 1998 Completed [facility] Dosage 00:00:00 [facility] Polio (IPV/OPV) 1998 Completed [facility] 00:00:00 [facility] DTAP 1998 Completed [facility] 00:00:00 [facility] HIB 4 Dose Schedule 1998 Completed [facility] 00:00:00 [facility] Hep B, Adol or Pedi 1998 Completed [facility] Dosage 00:00:00 [facility] Polio (IPV/OPV) 1998 Completed [facility] 00:00:00 [facility] DTAP 1998 Completed [facility] 00:00:00 [facility] HIB 4 Dose Schedule 1998 Completed [facility] 00:00:00 [facility] Hep B, Adol or Pedi 1998 Completed [facility] Dosage 00:00:00 [facility] Polio (IPV/OPV) 1998 Completed [facility] 00:00:00 [facility] DTAP 1998 Completed [facility] 00:00:00 [facility] HIB 4 Dose Schedule 1998 Completed [facility] 00:00:00 [facility] Hep B, Adol or Pedi 1998 Completed [facility] Dosage 00:00:00 [facility] Polio (IPV/OPV) 1998 Completed [facility] 00:00:00 [facility] DTAP 1998 Completed [facility] 00:00:00 [facility] HIB 4 Dose Schedule 1998 Completed [facility] 00:00:00 [facility] Hep B, Adol or Pedi 1998 Completed [facility] Dosage 00:00:00 [facility] Polio (IPV/OPV) 1998 Completed [facility] 00:00:00 [facility] DTAP 1998 Completed [facility] 00:00:00 [facility] HIB 4 Dose Schedule 1998 Completed [facility] 00:00:00 [facility] Hep B, Adol or Pedi 1998 Completed [facility] Dosage 00:00:00 [facility] Polio (IPV/OPV) 1998 Completed [facility] 00:00:00 [facility] DTAP 1998 Completed [facility] 00:00:00 [facility] HIB 4 Dose Schedule 1998 Completed [facility] 00:00:00 [facility] Hep B, Adol or Pedi 1998 Completed [facility] Dosage 00:00:00 [facility] Polio (IPV/OPV) 1998 Completed [facility] 00:00:00 [facility] DTAP 1998 Completed [facility] 00:00:00 [facility] HIB 4 Dose Schedule 1998 Completed [facility] 00:00:00 [facility] Hep B, Adol or Pedi 1998 Completed [facility] Dosage 00:00:00 [facility] Polio (IPV/OPV) 1998 Completed [facility] 00:00:00 [facility] DTAP 1998 Completed [facility] 00:00:00 [facility] HIB 4 Dose Schedule 1998 Completed [facility] 00:00:00 [facility] Hep B, Adol or Pedi 1998 Completed [facility] Dosage 00:00:00 [facility] Polio (IPV/OPV) 1998 Completed [facility] 00:00:00 [facility] DTAP 1998 Completed [facility] 00:00:00 [facility] HIB 4 Dose Schedule 1998 Completed [facility] 00:00:00 [facility] Hep B, Adol or Pedi 1998 Completed [facility] Dosage 00:00:00 [facility] Polio (IPV/OPV) 1998 Completed [facility] 00:00:00 [facility] DTAP 1998 Completed [facility] 00:00:00 [facility] HIB 4 Dose Schedule 1998 Completed [facility] 00:00:00 [facility] Hep B, Adol or Pedi 1998 Completed [facility] Dosage 00:00:00 [facility] Polio (IPV/OPV) 1998 Completed [facility] 00:00:00 [facility] DTAP 1998 Completed [facility] 00:00:00 [facility] HIB 4 Dose Schedule 1998 Completed [facility] 00:00:00 [facility] Hep B, Adol or Pedi 1998 Completed [facility] Dosage 00:00:00 [facility] Polio (IPV/OPV) 1998 Completed [facility] 00:00:00 [facility] DTAP 1998 Completed [facility] 00:00:00 [facility] HIB 4 Dose Schedule 1998 Completed [facility] 00:00:00 [facility] Hep B, Adol or Pedi 1998 Completed [facility] Dosage 00:00:00 [facility] Polio (IPV/OPV) 1998 Completed [facility] 00:00:00 [facility] DTAP 1998 Completed [facility] 00:00:00 [facility] HIB 4 Dose Schedule 1998 Completed [facility] 00:00:00 [facility] Hep B, Adol or Pedi 1998 Completed [facility] Dosage 00:00:00 [facility] Polio (IPV/OPV) 1998 Completed [facility] 00:00:00 [facility] DTAP 1998 Completed [facility] 00:00:00 [facility] HIB 4 Dose Schedule 1998 Completed [facility] 00:00:00 [facility] Hep B, Adol or Pedi 1998 Completed [facility] Dosage 00:00:00 [facility] Polio (IPV/OPV) 1998 Completed [facility] 00:00:00 [facility] DTAP 1998 Completed [facility] 00:00:00 [facility] HIB 4 Dose Schedule 1998 Completed [facility] 00:00:00 [facility] Hep B, Adol or Pedi 1998 Completed [facility] Dosage 00:00:00 [facility] Polio (IPV/OPV) 1998 Completed [facility] 00:00:00 [facility] DTAP 1998 Completed [facility] 00:00:00 [facility] HIB 4 Dose Schedule 1998 Completed [facility] 00:00:00 [facility] Hep B, Adol or Pedi 1998 Completed [facility] Dosage 00:00:00 [facility] Polio (IPV/OPV) 1998 Completed [facility] 00:00:00 [facility] DTAP 1998 Completed [facility] 00:00:00 [facility] HIB 4 Dose Schedule 1998 Completed [facility] 00:00:00 [facility] Hep B, Adol or Pedi 1998 Completed [facility] Dosage 00:00:00 [facility] Polio (IPV/OPV) 1998 Completed [facility] 00:00:00 [facility] DTAP 1998 Completed [facility] 00:00:00 [facility] HIB 4 Dose Schedule 1998 Completed [facility] 00:00:00 [facility] Hep B, Adol or Pedi 1998 Completed [facility] Dosage 00:00:00 [facility] Polio (IPV/OPV) 1998 Completed [facility] 00:00:00 [facility] DTAP 1998 Completed [facility] 00:00:00 [facility] HIB 4 Dose Schedule 1998 Completed [facility] 00:00:00 [facility] Hep B, Adol or Pedi 1998 Completed [facility] Dosage 00:00:00 [facility] Polio (IPV/OPV) 1998 Completed [facility] 00:00:00 [facility] DTAP 1998 Completed [facility] 00:00:00 [facility] HIB 4 Dose Schedule 1998 Completed [facility] 00:00:00 [facility] Hep B, Adol or Pedi 1998 Completed [facility] Dosage 00:00:00 [facility] Polio (IPV/OPV) 1998 Completed [facility] 00:00:00 [facility] DTAP 1998 Completed [facility] 00:00:00 [facility] HIB 4 Dose Schedule 1998 Completed [facility] 00:00:00 [facility] Hep B, Adol or Pedi 1998 Completed [facility] Dosage 00:00:00 [facility] Polio (IPV/OPV) 1998 Completed [facility] 00:00:00 [facility] DTAP 1998 Completed [facility] 00:00:00 [facility] HIB 4 Dose Schedule 1998 Completed [facility] 00:00:00 [facility] Hep B, Adol or Pedi 1998 Completed [facility] Dosage 00:00:00 [facility] Polio (IPV/OPV) 1998 Completed [facility] 00:00:00 [facility] DTAP 1998 Completed [facility] 00:00:00 [facility] HIB 4 Dose Schedule 1998 Completed [facility] 00:00:00 [facility] Hep B, Adol or Pedi 1998 Completed [facility] Dosage 00:00:00 [facility] Polio (IPV/OPV) 1998 Completed [facility] 00:00:00 [facility] DTAP 1998 Completed [facility] 00:00:00 [facility] HIB 4 Dose Schedule 1998 Completed [facility] 00:00:00 [facility] Hep B, Adol or Pedi 1998 Completed [facility] Dosage 00:00:00 [facility] Polio (IPV/OPV) 1998 Completed [facility] 00:00:00 [facility] DTAP 1998 Completed [facility] 00:00:00 [facility] HIB 4 Dose Schedule 1998 Completed [facility] 00:00:00 [facility] Hep B, Adol or Pedi 1998 Completed [facility] Dosage 00:00:00 [facility] Polio (IPV/OPV) 1998 Completed [facility] 00:00:00 [facility] DTAP 1998 Completed [facility] 00:00:00 [facility] HIB 4 Dose Schedule 1998 Completed [facility] 00:00:00 [facility] Hep B, Adol or Pedi 1998 Completed [facility] Dosage 00:00:00 [facility] Polio (IPV/OPV) 1998 Completed [facility] 00:00:00 [facility] DTAP 1998 Completed [facility] 00:00:00 [facility] HIB 4 Dose Schedule 1998 Completed [facility] 00:00:00 [facility] Hep B, Adol or Pedi 1998 Completed [facility] Dosage 00:00:00 [facility] Polio (IPV/OPV) 1998 Completed [facility] 00:00:00 [facility] DTAP 1998 Completed [facility] 00:00:00 [facility] HIB 4 Dose Schedule 1998 Completed [facility] 00:00:00 [facility] Hep B, Adol or Pedi 1998 Completed [facility] Dosage 00:00:00 [facility] Polio (IPV/OPV) 1998 Completed [facility] 00:00:00 [facility] DTAP 1998 Completed [facility] 00:00:00 [facility] HIB 4 Dose Schedule 1998 Completed [facility] 00:00:00 [facility] Hep B, Adol or Pedi 1998 Completed [facility] Dosage 00:00:00 [facility] Polio (IPV/OPV) 1998 Completed [facility] 00:00:00 [facility] DTAP 1998 Completed [facility] 00:00:00 [facility] HIB 4 Dose Schedule 1998 Completed [facility] 00:00:00 [facility] Hep B, Adol or Pedi 1998 Completed [facility] Dosage 00:00:00 [facility] Polio (IPV/OPV) 1998 Completed [facility] 00:00:00 [facility] DTAP 1998 Completed [facility] 00:00:00 [facility] HIB 4 Dose Schedule 1998 Completed [facility] 00:00:00 [facility] Hep B, Adol or Pedi 1998 Completed [facility] Dosage 00:00:00 [facility] Polio (IPV/OPV) 1998 Completed [facility] 00:00:00 [facility] DTAP 1998 Completed [facility] 00:00:00 [facility] HIB 4 Dose Schedule 1998 Completed [facility] 00:00:00 [facility] Hep B, Adol or Pedi 1998 Completed [facility] Dosage 00:00:00 [facility] Polio (IPV/OPV) 1998 Completed [facility] 00:00:00 [facility] DTAP 1998 Completed [facility] 00:00:00 [facility] HIB 4 Dose Schedule 1998 Completed [facility] 00:00:00 [facility] Hep B, Adol or Pedi 1998 Completed [facility] Dosage 00:00:00 [facility] Polio (IPV/OPV) 1998 Completed [facility] 00:00:00 [facility] DTAP 1998 Completed [facility] 00:00:00 [facility] HIB 4 Dose Schedule 1998 Completed [facility] 00:00:00 [facility] Hep B, Adol or Pedi 1998 Completed [facility] Dosage 00:00:00 [facility] Polio (IPV/OPV) 1998 Completed [facility] 00:00:00 [facility] DTAP 1998 Completed [facility] 00:00:00 [facility] HIB 4 Dose Schedule 1998 Completed [facility] 00:00:00 [facility] Hep B, Adol or Pedi 1998 Completed [facility] Dosage 00:00:00 [facility] [place] Polio (IPV/OPV) 1998 Completed [facility] 00:00:00 [facility] [place] DTAP 1998 Completed University of 00:00:00 [facility] [place] HIB 4 Dose Schedule 1998 Completed Unive rsity of 00:00:00 [facility] [place] Hep B, Adol or Pedi 1998 Completed Unive rsity of Dosage 00:00:00 [facility] [place] Polio (IPV/OPV) 1998 Completed Univers[facility] 00:00:00 [facility] DTAP 1998 Completed University of 00:00:00 [facility] [place] HIB 4 Dose Schedule 1998 Completed Unive rsity of 00:00:00 [facility] Hep B, Adol or Pedi 1998 Completed Unive rsity of Dosage 00:00:00 [facility] [place] Polio (IPV/OPV) 1998 Completed Universit y of 00:00:00 [facility] [place] DTAP 1998 Completed University of 00:00:00 [facility] [place] HIB 4 Dose Schedule 1998 Completed Unive rsity of 00:00:00 [facility] Hep B, Adol or Pedi 1998 Completed Unive rsity of Dosage 00:00:00 [facility] [place] Polio (IPV/OPV) 1998 Completed Universit [facility] 00:00:00 [facility] DTAP 1998 Completed University of 00:00:00 [facility] [place] HIB 4 Dose Schedule 1998 Completed Unive rsity of 00:00:00 [facility] Hep B, Adol or Pedi 1998 Completed Unive rsity of Dosage 00:00:00 [facility] [place] Polio (IPV/OPV) 1998 Completed Universit y of 00:00:00 [facility] [place] DTAP 1998 Completed University of 00:00:00 [facility] [place] HIB 4 Dose Schedule 1998 Completed Unive rsity of 00:00:00 [facility] [place] Hep B, Adol or Pedi 1998 Completed Unive rsity of Dosage 00:00:00 [facility] [place] Polio (IPV/OPV) 1998 Completed Universit [facility] 00:00:00 [facility] [place] DTAP 1998 Completed University of 00:00:00 [facility] [place] HIB 4 Dose Schedule 1998 Completed Unive rsity of 00:00:00 [facility] Hep B, Adol or Pedi 1998 Completed Unive rsity of Dosage 00:00:00 [facility] [place] Polio (IPV/OPV) 1998 Completed Universit y of 00:00:00 [facility] [place] DTAP 1998 Completed University of 00:00:00 [facility] [place] HIB 4 Dose Schedule 1998 Completed Unive rsity of 00:00:00 [facility] Hep B, Adol or Pedi 1998 Completed Unive rsity of Dosage 00:00:00 [facility] [place] Polio (IPV/OPV) 1998 Completed Universit [facility] 00:00:00 [facility] DTAP 1998 Completed University of 00:00:00 [facility] [place] HIB 4 Dose Schedule 1998 Completed Unive rsity of 00:00:00 [facility] Hep B, Adol or Pedi 1998 Completed Unive rsity of Dosage 00:00:00 [facility] [place] Polio (IPV/OPV) 1998 Completed Universit [facility] 00:00:00 [facility] DTAP 1998 Completed University of 00:00:00 [facility] [place] HIB 4 Dose Schedule 1998 Completed Unive rsity of 00:00:00 [facility] Hep B, Adol or Pedi 1998 Completed Unive rsity of Dosage 00:00:00 [facility] [place] Polio (IPV/OPV) 1998 Completed Universit [facility] 00:00:00 [facility] DTAP 1998 Completed University of 00:00:00 [facility] [place] HIB 4 Dose Schedule 1998 Completed Unive rsity of 00:00:00 [facility] Hep B, Adol or Pedi 1998 Completed Unive rsity of Dosage 00:00:00 [facility] [place] Polio (IPV/OPV) 1998 Completed Universit [facility] 00:00:00 [facility] [place] DTAP 1998 Completed University of 00:00:00 [facility] [place] HIB 4 Dose Schedule 1998 Completed Unive rsity of 00:00:00 [facility] Hep B, Adol or Pedi 1998 Completed Unive rsity of Dosage 00:00:00 [facility] [place] Polio (IPV/OPV) 1998 Completed Universit y of 00:00:00 [facility] Hep B, Adol or Pedi 1998 [...] 1998 Completed Unive rsity of Dosage 00:00:00 [facility] Hep B, Adol or Pedi 1998 Completed Unive rsity of Dosage 00:00:00 [facility] Hep B, Adol or Pedi 1998 Completed Unive rsity of Dosage 00:00:00 [facility] Hep B, Adol or Pedi 1998 Completed Unive rsity of Dosage 00:00:00 [facility] Hep B, Adol or Pedi 1998 Completed Unive rsity of Dosage 00:00:00 [facility] Hep B, Adol or Pedi 1998 Completed Unive rsity of Dosage 00:00:00 [facility] Hep B, Adol or Pedi 1998 Completed Unive rsity of Dosage 00:00:00 [facility] Hep B, Adol or Pedi 1998 Completed Unive rsity of Dosage 00:00:00 [facility] Hep B, Adol or Pedi 1998 Completed Unive rsity of Dosage 00:00:00 [facility] Hep B, Adol or Pedi 1998 Completed Unive rsity of Dosage 00:00:00 [facility] Hep B, Adol or Pedi 1998 Completed Unive rsity of Dosage 00:00:00 [facility] Hep B, Adol or Pedi 1998 Completed Unive rsity of Dosage 00:00:00 [facility] Hep B, Adol or Pedi 1998 Completed Unive rsity of Dosage 00:00:00 [facility] Hep B, Adol or Pedi 1998 Completed Unive rsity of Dosage 00:00:00 [facility] Hep B, Adol or Pedi 1998 Completed Unive rsity of Dosage 00:00:00 [facility] [place] Vital Signs Vital Name Observation Time Observation Value Comments Source Systolic blood 2022-08-10 131 mm[Hg] Provider University of pressure 14:11:00 notified [facility] [place] Diastolic blood 2022-08-10 93 mm[Hg] Provider University o f pressure 14:11:00 notified [facility] [place] Heart rate 2022-08-10 83 /min University of 14:11:00 [facility] [place] Body temperature 2022-08-10 36.72 Delfina University of 14:10:00 [facility] [place] Respiratory rate 2022-08-10 18 /min University of 14:10:00 [facility] [place] Body height 2022-08-10 157.5 cm University of 14:10:00 [facility] [place] Body weight 2022-08-10 86.592 kg University of 14:10:00 [facility] [place] BMI 2022-08-10 34.92 kg/m2 University of 14:10:00 [facility] [place] Oxygen saturation 2022-08-10 98 /min University in Arterial blood 14:10:00 [facility] Pulse oximetry [place] Systolic blood 2022-07-20 134 mm[Hg] University of pressure 20:35:00 [facility] [place] Diastolic blood 2022-07-20 97 mm[Hg] University o f pressure 20:35:00 [facility] [place] Heart rate 2022-07-20 66 /min University of 20:24:00 [facility] [place] Body temperature 2022-07-20 36.83 Delfina University of 20:24:00 [facility] [place] Respiratory rate 2022-07-20 18 /min University of 20:24:00 [facility] [place] Body height 2022-07-20 157.5 cm University of 20:24:00 [facility] [place] Body weight 2022-07-20 85.73 kg University of 20:24:00 [facility] [place] BMI 2022-07-20 34.57 kg/m2 University of 20:24:00 [facility] [place] Systolic blood 2022-07-06 121 mm[Hg] University of pressure 13:52:00 [facility] [place] Diastolic blood 2022-07-06 88 mm[Hg] University o f pressure 13:52:00 [facility] [place] Heart rate 2022-07-06 70 /min University of 13:52:00 [facility] [place] Body temperature 2022-07-06 36.28 Delfina University of 13:51:00 [facility] [place] Respiratory rate 2022-07-06 18 /min University of 13:51:00 [facility] [place] Body height 2022-07-06 157.5 cm University of 13:51:00 [facility] Body weight 2022-07-06 87 kg University of 13:51:00 [facility] BMI 2022-07-06 35.08 kg/m2 University of 13:51:00 [facility] [place] Oxygen saturation 2022-07-06 98 /min University of in Arterial blood 13:51:00 [place] [facility] Pulse oximetry [facility] Systolic blood 2022-06-25 130 mm[Hg] University of pressure 21:34:00 [facility] Diastolic blood 2022-06-25 90 mm[Hg] University o f pressure 21:34:00 [facility] [place] Heart rate 2022-06-25 88 /min University of 21:34:00 [facility] [place] Body temperature 2022-06-25 36.83 Delfina University of 21:34:00 [facility] [place] Respiratory rate 2022-06-25 18 /min University of 21:34:00 [facility] [place] Body height 2022-06-25 157.5 cm University of 21:34:00 [facility] [place] Body weight 2022-06-25 86.637 kg University of 21:34:00 [facility] [place] BMI 2022-06-25 34.93 kg/m2 University of 21:34:00 [facility] [place] Systolic blood 2022-06-22 118 mm[Hg] University of pressure 23:53:00 [facility] Diastolic blood 2022-06-22 89 mm[Hg] University o f pressure 23:53:00 [facility] [place] Heart rate 2022-06-22 74 /min University of 23:53:00 [facility] [place] Respiratory rate 2022-06-22 16 /min University of 23:53:00 [facility] [place] Oxygen saturation 2022-06-22 98 /min University of in Arterial blood 23:53:00 [place] [facility] Pulse oximetry [facility] Body temperature 2022-06-22 37.22 Delfina University of 18:35:00 [facility] Body height 2022-06-22 157.5 cm University of 18:35:00 [facility] [place] Body weight 2022-06-22 87.091 kg University of 18:35:00 [facility] [place] BMI 2022-06-22 35.12 kg/m2 University of 18:35:00 [facility] [place] Systolic blood 2022-06-22 137 mm[Hg] University of pressure 18:17:00 [facility] Diastolic blood 2022-06-22 102 mm[Hg] University o f pressure 18:17:00 [facility] [place] Heart rate 2022-06-22 80 /min University of 18:15:00 [facility] [place] Body temperature 2022-06-22 37.11 Delfina University of 18:15:00 [facility] [place] Respiratory rate 2022-06-22 16 /min University of 18:15:00 [facility] [place] Body height 2022-06-22 157.5 cm University of 18:15:00 [facility] [place] Body weight 2022-06-22 87.363 kg University of 18:15:00 [facility] [place] BMI 2022-06-22 35.23 kg/m2 University of 18:15:00 [facility] [place] Oxygen saturation 2022-06-22 97 /min [facility] Arterial blood 18:15:00 [facility] Pulse oximetry [place] Systolic blood 2022-05-17 123 mm[Hg] University of pressure 22:01:00 [facility] [place] Diastolic blood 2022-05-17 85 mm[Hg] University o f pressure 22:01:00 [facility] [place] Heart rate 2022-05-17 70 /min University of 22:01:00 [facility] [place] Body temperature 2022-05-17 36.78 Delfina University of 22:01:00 [facility] [place] Respiratory rate 2022-05-17 18 /min University of 22:01:00 [facility] [place] Body height 2022-05-17 157.5 cm University of ::00 [facility] [place] Body weight 2022-05-17 89.359 kg University of 22:01:00 [facility] [place] BMI 2022-05-17 36.03 kg/m2 University of 22:01:00 [facility] [place] Systolic blood 2022-05-11 123 mm[Hg] University of pressure 21:59:00 [facility] [place] Diastolic blood 2022-05-11 88 mm[Hg] University o f pressure 21:59:00 [facility] [place] Heart rate 2022-05-11 69 /min University of 21:59:00 [facility] [place] Body temperature 2022-05-11 37.44 Delfina University of 21:59:00 [facility] [place] Respiratory rate 2022-05-11 16 /min University of 21:59:00 [facility] [place] Body height 2022-05-11 157.5 cm University of 21:59:00 [facility] [place] Body weight 2022-05-11 88.406 kg University of 21:59:00 [facility] BMI 2022-05-11 35.65 kg/m2 University of 21:59:00 [facility] [place] Oxygen saturation 2022-05-11 99 /min University of in Arterial blood 21:59:00 [place] [facility] Pulse oxim[facility] Systolic blood 2022-03-25 125 mm[Hg] University of pressure 18:55:00 [facility] Diastolic blood 2022-03-25 90 mm[Hg] University o f pressure 18:55:00 [facility] [place] Heart rate 2022-03-25 74 /min University of 18:55:00 [facility] [place] Body temperature 2022-03-25 37.11 Delfina University of 18:55:00 [facility] [place] Respiratory rate 2022-03-25 18 /min University of 18:55:00 [facility] [place] Body height 2022-03-25 157.5 cm University of 18:55:00 [facility] [place] Body weight 2022-03-25 88.179 kg University of 18:55:00 [facility] [place] BMI 2022-03-25 35.56 kg/m2 University of 18:55:00 [facility] [place] Oxygen saturation 2022-03-25 98 /min University of in Arterial blood 18:55:00 [facility] by Pulse oximetry Branch Systolic blood 2022-02-26 134 mm[Hg] University of pressure 19:18:00 [facility] [place] Diastolic blood 2022-02-26 87 mm[Hg] University o f pressure 19:18:00 [facility] [place] Heart rate 2022-02-26 82 /min University of 19:18:00 [facility] [place] Body temperature 2022-02-26 37.11 Delfina University of 19:18:00 [facility] Respiratory rate 2022-02-26 16 /min University of 19:18:00 [facility] [place] Body height 2022-02-26 160 cm University of 19:18:00 [facility] [place] Body weight 2022-02-26 90.266 kg University of 19:18:00 [facility] [place] BMI 2022-02-26 35.25 kg/m2 University of 19:18:00 [facility] Oxygen saturation 2022-02-26 98 /min University of in Arterial blood 19:18:00 [place] [facility] Pulse oximetry [facility] Systolic blood 2022-02-22 134 mm[Hg] University of pressure 22:48:00 [facility] [place] Diastolic blood 2022-02-22 84 mm[Hg] University o f pressure 22:48:00 [facility] [place] Heart rate 2022-02-22 88 /min University of 22:48:00 [facility] [place] Body temperature 2022-02-22 37.22 Delfina University of 22:48:00 [facility] [place] Respiratory rate 2022-02-22 16 /min University of 22:48:00 [facility] [place] Body height 2022-02-22 160 cm University of 22:48:00 [facility] [place] Body weight 2022-02-22 90.311 kg University of 22:48:00 [facility] [place] BMI 2022-02-22 35.27 kg/m2 University of 22:48:00 [facility] [place] Oxygen saturation 2022-02-22 98 /min University in Arterial blood 22:48:00 [facility] Pulse oxim[facility] [place] Systolic blood 2022-01-13 129 mm[Hg] University of pressure 19:07:00 [facility] [place] Diastolic blood 2022-01-13 89 mm[Hg] University o f pressure 19:07:00 [facility] [place] Heart rate 2022-01-13 80 /min University of 19:07:00 [facility] [place] Body temperature 2022-01-13 36.83 Delfina University of 19:07:00 [facility] [place] Respiratory rate 2022-01-13 18 /min University of 19:07:00 [facility] [place] Body height 2022-01-13 157.5 cm University of 19:07:00 [facility] [place] Body weight 2022-01-13 88.996 kg University of 19:07:00 [facility] [place] BMI 2022-01-13 35.89 kg/m2 University of 19:07:00 [facility] [place] Systolic blood 2021-10-28 121 mm[Hg] University of pressure 15:36:00 [facility] [place] Diastolic blood 2021-10-28 81 mm[Hg] University o f pressure 15:36:00 [facility] [place] Heart rate 2021-10-28 73 /min University of 15:35:00 [facility] [place] Body temperature 2021-10-28 37.22 Delfina University of 15:35:00 [facility] [place] Body weight 2021-10-28 86.183 kg University of 15:35:00 [facility] [place] BMI 2021-10-28 34.74 kg/m2 [place] [address]:35:00 [facility] [place] Procedures Procedure Date / Time Performing Clinician Source Performed EXTERNAL PROVIDER RECORDS 2022-07-21 05:01:00 Doctor Erickson [facility] MEDICATION CORRESPONDENCE 2022-07-01 05:01:00 Doctor Georgina [facility] Name [facility] URINALYSIS MICROSCOPIC 2022-06-25 22:26:00 Chacha Gomez [facility] URINE CULTURE 2022-06-25 21:56:00 Chacha Gomez [facility] POCT URINALYSIS W/O 2022-06-25 00:00:00 Chacha Gomez [facility] SPECIFIC GRAVITY [facility] CT ABDOMEN PELVIS W 2022-06-22 21:03:00 Elijah Hernandez [facility] CONTRAST [facility] LIPASE 2022-06-22 19:30:00 David Elijah [facility] COMP. METABOLIC PANEL 2022-06-22 19:30:00 Elijah Hernandez [facility] ([id number]) [facility] CBC WITH DIFF 2022-06-22 19:30:00 David Elijah [facility] LACTIC ACID WHOLE BLOOD 2022-06-22 19:29:00 Eli[facility] POCT TEST 2022-06-22 19:20:00 Elijah [facility] URINALYSIS 2022-06-22 19:17:00 David [facility] CONSENT/REFUSAL FOR 2022-06-22 18:28:14 Doctor Georgina [facility] DIAGNOSIS AND TREATMENT [facility] CONSENT/REFUSAL FOR 2022-05-21 21:51:33 Doctor Marjankatiana [facility] DIAGNOSIS AND TREATMENT [facility] PATIENT QUESTIONNAIRE 2022-05-19 06:01:00 Doctor Erickson [facility] POCT URINALYSIS W/O 2022-05-17 00:00:00 Zully Holt [facility] SPECIFIC GRAVITY [facility] POCT TEST 2022-03-25 20:00:00 [facility]a [facility] URINE CULTURE 2022-03-25 19:22:00 Faith [facility] GC, CHLAMYDIA, & M. 2022-03-25 19:22:00 Faith [facility] GENITALIUM AMPLIFIED Medical [facility] ASSAY GALV ONLY - VAGINAL 2022-03-25 19:22:00 [facility] PATHOGENS BY NUCLEIC ACID Medica l Branch TESTING POCT URINALYSIS 2022-03-25 19:02:00 Camachoprkentrell [facility] GC & CHLAMYDIA AMPLIFIED 2022-02-22 23:07:00 [facility] GALV ONLY - VAGINAL 2022-02-22 23:07:00 [facility] BY NUCLEIC ACID Medica l Branch TESTING POCT URINALYSIS 2022-02-22 22:54:00 [facility] URINE CULTURE 2022-02-22 22:49:00 Benny [facility] AUTHORIZATION FOR RELEASE 2022-01-19 05:01:00 Doctor Unassigned, [facility] Name Medical [place] AUTHORIZATION FOR RELEASE 2021-12-22 05:01:00 Doctor Unassigned, [facility] Name [facility] AUTHORIZATION FOR RELEASE 2021-12-14 05:01:00 Doctor Unassigned, [facility] Name [facility] [place] Encounters Start End Encounter Admission Attending Care Care Encounter Source Date/Time Date/Time Type Type Clinicians Facility Department ID 2022-08-10 2022-08-10 Telemarketer Supervisor [facility] UNIVERSIT [id number] Univers 10:00:00 10:15:00 Visit Angel Sams [facility] [id number] ity [facility] [id number] [address] 2022-08-10 2022-08-10 Outpatient R FLAQUITA [facility] [id number] Univers 09:00:00 09:38:50 ANGEL mata [facility] 2022-08-10 2022-08-10 Office Aneta Joseph UNIVERSI T [id number] Univers 09:00:00 09:38:50 Visit Angel Sams [facility] [id number] ity of [facility] [id number] [id number] [facility] 0[address] Branch 2022-08-06 2022-08-06 Telemedici [facility] [id number] Univers 16:30:00 17:00:00 ne Visit Chacha GUTIÉRREZ [id number] ity of [id number] [id number] Pa dical NAL 098 [facility] 2022-08-06 2022-08-06 Outpatient R CHACHA GOMEZ [facility] [id number] Univers 16:30:00 16:30:00 CHACHA GOMEZ [facility] 2022-07-21 2022-07-21 Outpatient R LELO [facility] [id number] Univers 13:00:00 13:00:00 GALINA mata o f [facility] 2022-07-21 2022-07-21 Orders Doctor PHILL [id number] Univers 00:00:00 00:00:00 Only Unassigned, [place] [id number] ity of [place] [facility] [id number] [place] [id number] [facility] 009 Branch 2022-07-20 2022-07-20 Outpatient R LILIYA PATEL [facility] [id number] Univers 15:15:00 15:47:52 LILIYA PATEL ity [facility] 2022-07-20 2022-07-20 Office [facility] [id number] Univers 15:15:00 15:47:52 Visit Liliya márquez [id number] ity of [id number] [id number] Pa dical NAL 134 [facility] 2022-07-20 2022-07-20 Telephone CLEMENTE Joseph [id number] Univers 00:00:00 00:00:00 Aneta [facility] [id number] i ty of [facility] [id number] [id number] [facility] 071 Branch 2022-07-16 2022-07-16 Telephone PHILL Joseph [id number] Univers 00:00:00 00:00:00 Aneta ELENAY [id number] it y of [facility] [id number] [place] [id number] [facility] 009 Branch 2022-07-08 2022-07-08 Outpatient R YANET [facility] [id number] Univers 13:30:00 13:30:00 ZULLY [facility] 2022-07-06 2022-07-06 Telemarketer Supervisor [facility] UNIVERSIT 1.2.840.114 1 [id number] Univers 10:15:00 10:30:00 [facility] 350.1.13. 10 ity of [facility] 4.2.7.2.[place] [id number] [facility] [address] 2022-07-06 2022-07-06 Office Aneta Joseph Kiesha [facility] 1.2.840.114 [id number] Univers 09:00:00 09:30:00 Visit ArielAngel trent Juan Pablo [facility] 350.1.13. 10 ity of CL[place]ICS [place].2.[place].2.[place] [id number] [place] [address] [place] 2022-07-06 2022-07-06 Outpatient R FLAQUITA [facility] [id number] Univers 09:00:00 09:00:00 ANGEL [facility] 2022-07-06 2022-07-06 Telephone [facility] 1.2.840.114 [id number] Univers 00:00:00 00:00:00 Chacha GUTIÉRREZ 350.1.13.10 i ty of [place].7.2.[place] [id number] [facility] 098 [facility] 2022-07-06 2022-07-06 Telephone Joseph, [facility] 1.2.840.114 10 [id number] Univers 00:00:00 00:00:00 [facility] 350.1.13.10 i ty of [facility] [place].2.[place] [id number] [address] 2022-07-06 2022-07-06 Telephone Joseph, [facility] 1.2.840.114 10 [id number] Univers 00:00:00 00:00:00 [facility] 350.1.13.10 i ty of [facility] [place] [id number] [address] 2022-07-06 2022-07-06 Telephone Joseph, [facility] 1.2.840.114 10 [id number] Univers 00:00:00 00:00:00 [facility] 350.1.13.10 i ty of [facility] [place] [id number] [address] 2022-07-02 2022-07-02 Outpatient R LILIYA PATEL [facility] [id number] Univers 15:00:00 15:00:00 LILIYA PATEL [facility] 2022-07-01 2022-07-01 [facility] 1.2.840.114 [id number] Univers 00:00:00 00:00:00 Chacha GUTIÉRREZ 350.1.13.10 i ty of [place] 4.2.7.2.686 Shaun DURÁN [id number] [facility] 098 [facility] 2022-07-01 2022-07-01 Orders Doctor PHILL 1.2.840.114 [id number] Univers 00:00:00 00:00:00 Only Unassigned, COLEMAN 350.1.13.10 ity of [place] [facility] 4.2.7.2.686 [place] [id number] [place] [address] [address] 2022-06-25 2022-06-25 Outpatient R CHACHA GOMEZ [facility] [id number] Univers 15:30:00 16:28:47 CHACHA GOMEZ [facility] 2022-06-25 2022-06-25 [facility] 1.2.840.114 [id number] Univers 15:30:00 16:28:47 Visit Chacha GUTIÉRREZ 350.1.13.10 i ty of [place] 4.2.7.2.686 [facility] [id number] Pa gilberto BURGER 098 [facility] 2022-06-22 2022-06-22 Emergency [facility] [id number] Univers 12:41:00 20:34:00 ELIJAH mata [facility] 2022-06-22 2022-06-22 Emergency [facility] 1.2.336.591 [id number] Univers 12:41:00 20:34:00 Elijah GUTIÉRREZ 350.1.13.10 i ty of [place] 4.2.7.2.686 [facility] [id number] [facility] [address] [place] 2022-06-22 2022-06-22 Nurse Nurse, [facility] 1.2.840.114 [id number] Univers 12:15:00 12:41:54 Visit Unknown, Attending HEALTH 350.1.13.10 ity of [place] 4.2.7.2.686 [facility] [phone] Pa gilberto GO 370 [facility] OFFICE [facility] 2022-06-22 2022-06-22 Outpatient R SAWYER [facility] [id number] Univers 12:20:00 12:20:00 ATTENDING esperanza [facility] 2022-06-22 2022-06-22 Outpatient R BENNY [facility] [id number] Univers 12:15:00 12:15:00 STEFFANY mata [facility] 2022-06-22 2022-06-22 Orders Doctor PHILL 1.2.840.114 [id number] Univers 00:00:00 00:00:00 Only Unassigned, COLEMAN 350.1.13.10 ity of [place] [facility] 4.2.7.2.686 [place] [id number] [facility] [address] [place] 2022-06-03 2022-06-03 Outpatient R YANET [facility] [id number] Univers 14:00:00 14:00:00 ZULLY ity [facility] 2022-05-24 2022-05-24 Telephone [facility] 1.2.840.114 10 [id number] Univers 00:00:00 00:00:00 Zully GUTIÉRREZ 350.1.13.10 i ty of [place].2.[place] [id number] [facility] 134 [facility] 2022-05-21 2022-05-21 [facility] [id number] Univers 15:51:32 23:59:00 ZULLY ity [facility] 2022-05-21 2022-05-21 [facility] 1.2.840.114 [id number] Univers 15:45:00 23:59:00 Encounter Zully GUTIÉRREZ 350.1.13.10 ity of [place] 4.2.7.2.[place] CAMP[place] [id number] [facility] [address] [place] 2022-05-19 2022-05-19 Outpatient [facility] [id number] Univers 10:00:00 11:06:31 CHACHA ity [facility] 2022-05-19 2022-05-19 Telephone [facility] 1.2.840.114 10 [id number] Univers 00:00:00 00:00:00 Zully GUTIÉRREZ 350.1.13.10 i ty of [place] 4.2.7.2.[place] [id number] Pa dic[address] 2022-05-19 2022-05-19 Orders Doctor PHILL 1.2.840.114 [id number] Univers 00:00:00 00:00:00 Only Unassigned, COLEMAN 350.1.13.10 ity of [place] [facility] 4.2.7.2.686 [place] as [id number] [facility] [address] [place] 2022-05-18 2022-05-18 Case KASIA Holt 1.2.913.070 [id number] Univers 00:00:00 00:00:00 Management Zully PEDIATRIC 350.1.13.10 ity of [place]2.[place].2.[place] AD[place] [id number] [facility] PRIMARY [address] CARE CLINIC 2022-05-17 2022-05-17 Outpatient R YANET MAPATTIE [facility] [id number] Univers 16:00:00 16:38:57 ZULLY ity [facility] 2022-05-17 2022-05-17 Office Yanet [facility] 1.2.747.137 [id number] Univers 16:00:00 16:38:57 Visit Zully MARLA 350.1.13.10 i ty [facility] 4.2.7.2.[place] [phone] Pa dical NAL [facility] Branch [facility] 2022-05-11 2022-05-11 Office Josey Koch [facility] 1.2.840.114 10 [id number] Univers 16:30:00 16:45:00 Visit HEALTH 350.1.13.10 it y of [place].2.[place].2.686 [place] [id number] [address] OFFICE BUILDING 2022-05-11 2022-05-11 Outpatient R JOSEY KOCH [facility] [id number] Univers 16:30:00 16:30:00 ity [facility] 2022-05-05 2022-05-05 Telephone Tom Henrietta [facility] 1.2.840.114 [id number] Univers 00:00:00 00:00:00 Cam MARLA 350.1.13.10 i ty [facility] 4.2.7.2.[place] [id number] Pa dical NAL [address] [place] [address] 2022-04-27 2022-04-27 Outpatient R JOSEY KOCH [facility] [id number] Univers 14:00:00 14:00:00 ity [facility] 2022-04-06 2022-04-06 Outpatient JOSEY AWAD [facility] [id number] Univers 08:45:00 08:45:00 ity [facility] 2022-03-28 2022-03-28 Patient Darriuskentrell [facility] 1.2.840.114 [id number] Univers 00:00:00 00:00:00 Secure Msg Rania HEALTH 350.1.13.10 ity [facility] 4.2.7.2.686 [place] as VLADIMIR?BLEA [phone] Pa gilberto GO [address] [place] MEDICAL OFFICE BUILDING 2022-03-25 2022-03-25 Telemarketer Supervisor Lab, Ang - Db [facility] 1.2.840.1 14 [id number] Univers 13:30:00 13:45:00 Visit Mara Cuevas [facility] 350.1.13.10 ity [facility] 4.2.7.2.686 [place] as VLADIMIR?BLEA [phone] Pa gilberto GO [address] [place] MEDICAL OFFICE [facility] 2022-03-25 2022-03-25 Outpatient R FAITH [facility] [id number] Univers 12:40:00 13:23:47 [facility] 2022-03-25 2022-03-25 Urgent CamachofritzMara pfeiffer [facility] 1.2.840.114 [id number] Univers 12:40:00 13:23:47 Care Unknown, [facility] HEALTH 350.1.13.10 ity of [place] 4.2.7.2.686 [place] as VLADIMIR?BLEA [id number] Pa gilberto GO [address] [place] MEDICAL OFFICE [facility] 2022-03-25 2022-03-25 Patient Faith [facility] 1.2.840.114 [id number] Univers 00:00:00 00:00:00 Secure Msg Mara FinalCAD 350..13.10 ity of [place] 4.2.7.2.686 [place] as VLADIMIR?BLEA [id number] Pa gilberto GO [address] [place] MEDICAL OFFICE [facility] 2022-03-24 2022-03-24 Outpatient R SAWYER, [facility] [id number] Univers 17:20:00 17:20:00 ATTENDING ity of [facility] 2022-02-26 2022-02-26 Outpatient R JEEVAN [facility] [id number] Univers 13:00:00 13:40:20 LORENZA deras [facility] 2022-02-26 2022-02-26 Urgent Lorenza Chew [facility] 1.2.840 .114 [id number] Univers 13:00:00 13:40:20 Care Unknown, Attending HEALTH 350.1.13.10 ity of [facility] 4.2.7.2.686 [place] as VLADIMIR?BLEA [phone] [address] OFFICE [facility] 2022-02-22 2022-02-22 Outpatient R KACEY [facility] [id number] Univers 16:40:00 17:15:39 ROSA ity o f [facility] 2022-02-22 2022-02-22 Urgent Rosa Erazo [facility] 1.2.840. 114 [id number] Univers 16:40:00 17:15:39 Care Unknown, Attending HEALTH 350.1.13.10 ity of [facility] 4.2.7.2.686 [place] as VLADIMIR?BLEA [id number] [address] 2022-01-19 2022-01-19 Orders Doctor PHILL 1.2.840.114 [id number] Univers 00:00:00 00:00:00 Only Unassigned, COLEMAN 350.1.13.10 ity of [place] [facility] 4.2.7.2.686 [place] as [phone] [address] 2022-01-13 2022-01-13 Telemarketer Supervisor 2, Adc Lab [facility] 1.2.840.114 [id number] Univers 15:00:00 15:15:00 Visit Henrietta Santos 350.1.13.10 ity [facility] 4.2.7.2.[place] [id number] Pa dicdaniel [facility] 353 [facility] 2022-01-13 2022-01-13 Office Henrietta Santos [facility] 1.2.459.266 [id number] Univers 14:30:00 14:30:00 Visit Edis GUTIÉRREZ 350.1.13.10 i ty of [facility] 4.2.7.2.[place] [id number] Pa dical NAL 134 [facility] 2022-01-13 2022-01-13 Outpatient R HENRIETTA SANTOS [facility] [id number] Univers 14:30:00 14:19:51 ity of [facility] 2022-01-05 2022-01-05 Outpatient R TAD [facility] [id number] Univers 09:10:00 09:10:00 LOKESH mata of [facility] 2021-12-28 2021-12-28 Outpatient R ELENA [facility] [id number] Univers 15:00:00 15:00:00 CARROLA ity o f [facility] 2021-12-28 2021-12-28 Outpatient R PARKER, [facility] [id number] Univers 15:00:00 15:00:00 ROSMELISSANDA ity o f [facility] 2021-12-28 2021-12-28 Outpatient R ELENA [facility] [id number] Univers 15:00:00 15:00:00 RAGHUNDA itolivier o f [facility] 2021-12-28 2021-12-28 Outpatient R PARKER, [facility] [id number] Univers 15:00:00 15:00:00 AMANDA mata o [facility] 2021-12-22 2021-12-22 Orders Doctor POLLOCK 1.2.840.114 [id number] Univers 00:00:00 00:00:00 Only Unassigned, COLEMAN 350.1.13.10 ity of [place] [facility] 4.2.7.2.686 Golden as [id number] [address] 2021-12-14 2021-12-14 Orders Doctor PHILL 1.2.840.114 [id number] Univers 00:00:00 00:00:00 Only Unassigned, COLEMAN 350.1.13.10 ity of [place] [facility] 4.2.7.2.686 [place] as [id number] [address] 2021-12-11 2021-12-11 Terell Mishra [facility] 1.2.449.790 [id number] Univers 00:00:00 00:00:00 Lokesh ESCOBAR 350.1.13.10 ity of [place] 4[place]2.7.2.686 [place] CENTER AT [id number] [address] 2021-10-28 2021-10-28 Office Henrietta Santos [facility] 1.2.719.661 [id number] Univers 10:00:00 11:33:53 Visit Edis GUTIÉRREZ 350.1.13.10 i ty [facility] 4.2.7.2.[place] [id number] Pa dical NAL 134 [facility] 2021-10-28 2021-10-28 Outpatient R TOM HENRIETTA [facility] [id number] Univers 10:00:00 11:33:53 [facility] 2021-10-28 2021-10-28 Outpatient R TOM [facility] [id number] Univers 10:00:00 10:00:00 ity [facility] 2021-10-21 2021-10-21 Outpatient R TOM [facility] [place] [id number] Univers 15:30:00 15:30:00 [facility] 2021-10-12 2021-10-12 Outpatient Davion MISHRA [facility] [id number] Univers 13:50:00 13:50:00 LOKESH [facility] 2021-10-09 2021-10-09 Imm/Inj Vaccine, [facility] 1.2.840.114 [id number] Univers 15:00:00 15:04:02 Visit Moe Marie 350.1.13 .10 ity of [place].7.2.[place] [id number] [facility] 044 [facility] 2021-10-09 2021-10-09 Outpatient [facility] [id number] Univers 15:00:00 15:00:00 MOE [facility] 2021-10-09 2021-10-09 Outpatient R FRANK [facility] [id number] Univers 15:00:00 15:00:00 MOE [facility] 2021-10-08 2021-10-08 Office Tom [facility] 1.2.736.492 [id number] Univers 16:00:00 16:57:27 Visit Edis GUTIÉRREZ 350.1.13.10 i ty of [place] 4.2.7.2.[place] [phone] Pa dical NAL 134 [facility] 2021-10-08 2021-10-08 Outpatient R HENRIETTA SANTOS [facility] [id number] Univers 16:00:00 16:57:27 ity of [facility] 2021-10-08 2021-10-08 Outpatient R HENRIETTA SANTOS [facility] [id number] Univers 08:15:00 08:15:00 ity [facility] 2021-10-08 2021-10-08 Patient Laura [facility] 1.2.840.114 [id number] Univers 00:00:00 00:00:00 Secure Msg Rachel TINSLEYTON 350.1.13.10 ity of [place] 4.2.7.2.[place] [phone] Pa dical NAL [address] [place] [address] 2021-10-07 2021-10-07 Outpatient R HENRIETTA SANTOS [facility] [id number] Univers 10:30:00 11:44:37 ity of [facility] 2021-10-07 2021-10-07 Office Tom [facility] 1.2.684.534 [id number] Univers 10:30:00 11:44:37 Visit Cam MARLA 350.1.13.10 i ty of [place] 4.2.7.2.[place] [id number] Pa dical NAL [address] [place] [address] 2021-10-07 2021-10-07 Telephone Henrietta Santos [facility] 1.2.840.114 [id number] Univers 00:00:00 00:00:00 Cam [place] 350.1.13.10 i ty of [place] 4.2.7.2.686 [place] [phone] Pa dical NAL [address] [place] [address] 2021-10-07 2021-10-07 Patient Laura [facility] 1.2.840.114 [id number] Univers 00:00:00 00:00:00 Secure Msg Rachel [place] 350.1.13.10 ity of [place] 4.2.7.2.686 [place] [id number] Pa dical NAL [address] [place] [address] 2021-10-06 2021-10-[address] [facility] TRUCK SUPERVISOR [id number] Univers 06:17:00 10:43:00 ity of [facility] 2021-10-06 2021-10-06 Hospital Henrietta Santos [facility] 1.2.840.114 [id number] Univers 06:17:00 10:43:00 Golden GUTIÉRREZ 350.1.13.10 ity of [place] 4.2.7.2.686 [place] SURGICAL [id number] [facility] [address] 2021-10-06 2021-10-06 Outpatient R HENRIETTA SANTOS [facility] TRUCK SUPERVISOR [id number] Univers 06:17:00 10:43:00 ity of [facility] 2021-10-06 2021-10-06 Surgery Henrietta Santos [facility] 1.2.663.239 [id number] Univers 07:50:00 09:26:00 Edis GUTIÉRREZ 350.1.13.10 i ty of [place] 4.2.7.2.686 [place] SURGICAL [id number] [facility] [address] 2021-10-06 2021-10-06 Anesthesia Yvon Garcia [facility] 1.2.840.11 [id number] Univers 07:53:00 09:11:00 Event Phill Louie 350.1.13.10 ity of [place] 4.2.7.2.686 [place] SURGICAL [id number] [facility] [address] [place] 2021-10-05 2021-10-05 Telemarketer Supervisor Hailey, [facility] [place] 1.2.8 40.114 [id number] Univers 14:00:00 14:15:00 Visit SantosRadhacruzito GUTIÉRREZ 350.1.13.10 ity of [place] 4.2.7.2.[place] [id number] [facility] 353 [facility] 2021-10-05 2021-10-05 Telemarketer Supervisor 1, Adc Lab [facility] 1.2.840.114 [id number] Univers 13:00:00 13:15:00 Visit SantosRadhacruzito GUTIÉRREZ 350.1.13.10 ity of [place] 4.2.7.2.686 [place] CAMPUS [id number] [address] 2021-10-05 2021-10-05 Outpatient R HENRIETTA SANTOS [facility] [id number] Univers 13:00:00 13:00:00 ity [facility] 2021-10-05 2021-10-05 Orders Doctor PHILL 1.2.840.114 [id number] Univers 00:00:00 00:00:00 Only Unassigned, COLEMAN 350.1.13.10 [facility] 4.2.7.2.686 [place] as [id number] [address] 2021-10-01 2021-10-01 Outpatient R CORNELL [facility] [id number] Univers 15:15:00 15:15:00 [facility] 2021-09-23 2021-09-23 Outpatient R [facility] [id number] Univers 14:00:00 14:00:00 [facility] 2021-09-23 2021-09-23 Outpatient R [facility] [id number] Univers 14:00:00 14:00:00 ity [facility] 2021-09-18 2021-09-18 [facility] [id number] Univers 08:00:00 08:00:00 [facility] 2021-09-15 2021-09-15 Outpatient R HENRIETTA SANTOS [facility] [id number] Univers 14:15:00 15:09:42 [facility] 2021-09-15 2021-09-15 Office Henrietta Santos [facility] 1..806.973 [id number] Univers 14:15:00 15:09:42 Visit Edis GUTIÉRREZ 350.1.13.10 i ty [facility] 4.2.7.2.[place] [id number] Pa dical [place] [address] [address] [facility] 2021-09-15 2021-09-15 Outpatient R HENRIETTA SANTOS [facility] [id number] Univers 14:15:00 14:15:00 [facility] 2021-09-02 2021-09-02 Imm/Inj Vaccine, Adc Family Medicine [facility] 1.2.840.114 [id number] Univers 14:00:00 14:11:11 Visit Moe Marie 350.1.13 .10 ity of [place] 4.2.7.2.[place] [id number] Pa dical NAL 044 [facility] 2021-09-02 2021-09-02 Outpatient R FRANK [facility] [id number] Univers 14:00:00 14:00:00 MOE olivier [facility] 2021-08-27 2021-08-27 Outpatient R CORNELL [facility] [id number] Univers 15:15:00 15:15:00 BHARGAV [facility] 2021-08-26 2021-08-26 Case Henrietta Santos [facility] 1.2.813.927 [id number] Univers 00:00:00 00:00:00 Management Edis GUTIÉRREZ 350.1.13.10 ity of [place] 4.2.7.2.[place] [phone] Pa dical NAL 134 [facility] 2021-08-24 2021-08-24 Outpatient R HENRIETTA SANTOS [facility] [id number] Univers 10:00:00 11:05:48 ity of [facility] 2021-08-24 2021-08-24 Initial Henrietta Santos [facility] 1.2.329.792 [id number] Univers 10:00:00 11:05:48 Edis GUTIÉRREZ 350.1.13.10 ity of Visit [place] 4.2.7.2.[place] [id number] Pa dical NAL 134 [facility] 2021-08-24 2021-08-24 Orders Doctor PHILL 1.2.840.114 [id number] Univers 00:00:00 00:00:00 Only Unassigned, COLEMAN 350.1.13.10 ity of [place] [facility] 4.2.7.2.686 Golden as [id number] [address] 2021-08-10 2021-08-10 Outpatient Davion MISHRA [facility] [id number] Univers 13:06:58 23:59:00 LOKESH itolivier [facility] 2021-08-10 2021-08-10 Outpatient Davion MISHRA [facility] [id number] Univers 13:06:58 23:59:00 LOKESH esperanza [facility] 2021-08-10 2021-08-[address] [facility] 1.2.840.114 [id number] Univers 13:06:58 23:59:00 Encounter Lokesh Pfeiffer SPECIALTY 350.1.13.10 ity of [place].2.[place] CENTER AT [phone] Pa gilberto JANE 809 [facility] 2021-08-10 2021-08-[address] [facility] 1.2.840.114 [id number] Univers 13:50:00 13:50:00 Visit Lokesh Pfeiffer SPECIALTY 350.1.13.10 ity of [place].2.[place] CENTER AT [id number] Pa geedaniel JANE 198 [facility] 2021-08-06 2021-08-06 [facility] 1.2.840.114 [id number] Univers 00:00:00 00:00:00 Jocelyn Gray ROTOR BALANCER 350.1.13.10 ity of REGIONAL 4.2.7.2.686 [place] as MATERNAL [phone] Med ical & CHILD 107 [facility] 2021-07-31 2021-07-31 Outpatient Davion HOOK [facility] [id number] Univers 13:15:00 13:33:04 HETAL [facility] 2021-07-31 2021-07-31 Nurse Pea-Rmchp Nurse Vst, Fp Nrpt Pills [facility] 1.2.840.114 [id number] Univers 13:15:00 13:33:04 Visit Hetal Hook ROTOR BALANCER 350.1.13.10 ity of [facility] 4.2.7.2.686 Golden as MATERNAL [phone] Med ical & CHILD 125 [facility] 2021-07-31 2021-07-31 Outpatient Davion HOOK [facility] [id number] Univers 13:15:00 13:15:00 HETAL [facility] 2021-07-30 2021-07-30 Outpatient Davion INFANTE [facility] [id number] Univers 16:20:00 16:20:00 [facility] 2021-07[facility]30 [facility] [id number] Univers 16:20:00 16:20:00 Visit Phill PRIMARY [id number] it [id number] [phone] Pa dical [address] [place] 2021-07-30 2021-07-30 [facility] [id number] Univers 16:20:00 16:20:00 Visit Phill PRIMARY [id number] it [id number] [phone] [facility] [address] 2021-07-30 2021-07-30 Outpatient R ARELIS [facility] [id number] Univers 16:20:00 16:07:54 PHILL olivier [facility] 2021-07-24 2021-07-24 Outpatient Davion ERAZO [facility] [id number] Univers 17:20:00 17:20:00 ROSA bergerolivier o braeden [facility] 2021-07-16 2021-07-16 Outpatient R ARELIS [facility] [id number] Univers 15:00:00 15:00:00 PHILL mata [facility] 2021-05-26 2021-05-26 [facility] [id number] Univers 09:20:00 09:20:00 MOE olivier [facility] 2021-05-26 2021-05-26 Outpatient Davion MARIE [facility] [id number] Univers 09:20:00 09:20:00 MOE [facility] 2021-05-25 2021-05-25 Outpatient Davion PARKER [facility] [id number] Univers 15:00:00 15:46:14 AMANDA mata o f [facility] 2021-05-25 2021-05-25 [facility] [id number] Univers 15:00:00 15:46:14 Visit Amanda Ricardo [employer] [id number] ity of REGIONAL [id number] [place] as MATERNAL [phone] [facility] & CHILD [address] [place] [address] 2021-05-25 2021-05-25 Outpatient R ELENA [facility] [id number] Univers 15:00:00 15:00:00 ROSHUNDA ity o f [facility] 2021-05-25 2021-05-25 Orders Doctor PHILL [id number] Univers 00:00:00 00:00:00 Only Unassigned, COLE[place] 350.1.13.10 ity of [place] [facility] [id number] [place] as [phone] [address] 2021-05-19 2021-05-19 Office Josey Koch [facility] [id number] Univers 16:45:00 17:00:00 Visit [facility] [id number] it [id number] [phone] [address] OFFICE BUILDING 2021-05-19 2021-05-19 Outpatient R JOSEY KOCH [facility] [id number] Univers 16:45:00 16:45:00 ity of [facility] 2021-05-05 2021-05-05 [facility] 1.2.973.775 [id number] Univers 00:00:00 00:00:00 Rosmelissanda R ROTOR BALANCER 350.1.13.10 ity of REGIONAL 4.2.7.2.686 [place] as MATERNAL [phone] [facility] & CHILD [address] [place] [address] 2021-05-05 2021-05-05 [facility]phone [facility] 1.2.483.054 [id number] Univers 00:00:00 00:00:00 Roshunda R ROTOR BALANCER 350.1.13.10 ity of REGIONAL 4.2.7.2.686 [place] as MATERNAL [phone] [facility] & CHILD [address] [place] [address] 2021-04-30 2021-04-30 Outpatient R ELENA [facility] [id number] Univers 15:30:00 16:02:20 ROSHUNDA ity o f [facility] 2021-04-30 2021-04-30 [facility] 1.2.840.114 [id number] Univers 15:30:00 16:02:20 Visit Amanda Ricardo ROTOR BALANCER 350.1.13.10 ity of REGIONAL 4.2.7.2.686 [place] as MATERNAL [phone] Med ical & CHILD 107 [facility] 2021-04-28 2021-04-28 Outpatient JOSEY AWAD [facility] [id number] Univers 15:45:00 15:45:00 ity [facility] 2021-04-04 2021-04-04 Outpatient Dav[facility] [id number] Univers 08:43:04 23:59:00 PHILL mata [facility] 2021-04-04 2021-04-04 [facility] 1.2.840.114 [id number] Univers 08:43:04 23:59:00 Encounter [place] SPECIALTY 350.1.13.10 it[phone] [place] geedaniel JOSEOlivier 804 [facility] 2021-04-04 2021-04-04 [facility] 1.2.840.114 [id number] Univers 08:42:06 08:42:06 Encounter [place] SPECIALTY 350.1.13.10 it[place] of [place] [phone] [place] gilberto BUCK 803 [facility] 2021-03-20 2021-03-20 [facility] 1.2.840.114 [id number] Univers 00:00:00 00:00:00 [place] PRIMARY 350.1.13.10 it y of [place].2.[place] [phone] [place] gilberto [address] 2021-03-05 2021-03-05 Outpatient Davion [facility] [id number] Univers 15:40:00 15:40:00 PHILL mata [facility] 2021-02-26 2021-02-26 Outpatient Davion [facility] [id number] Univers 15:30:00 15:30:00 PHILL mata [facility] 2021-02-19 2021-02-19 Outpatient R ARELIS [facility] [id number] Univers 15:50:00 15:50:00 PHILL olivier [facility] 2021-01-20 2021-01-20 Outpatient R MONSTER [facility] [id number] [facility] 13:15:00 13:15:00 HETALCALEB mata [facility] 2021-01-12 2021-01-12 Outpatient R CHRISTINA [facility] [id number] [facility] 09:15:00 09:15:00 JOCELYN deras [facility] 2021-01-08 2021-01-08 [facility] 1.2.840.114 [id number] Univers 00:00:00 00:00:00 Jocelyn C ROTOR BALANCER 350.1.13.10 ity of [facility] 4.2.7.2.686 Golden as MATERNAL [phone] [facility] & CHILD [address] [place] [address] 2021-01-07 2021-01-07 [facility] 1.2.840.114 [id number] Univers 00:00:00 00:00:00 Jocelyn C ROTOR BALANCER 350.1.13.10 ity of [facility] 4.2.7.2.686 Golden as MATERNAL [phone] [facility] & [address] 2021-01-05 2021-01-05 [facility] 1.2.917.851 [id number] Univers 13:58:32 14:20:28 Visit Jocelyn C ROTOR BALANCER 350.1.13.10 ity of [facility] 4.2.7.2.686 [place] as MATERNAL [phone] [facility] & [address] 2021-01-05 2021-01-05 Outpatient Davion VASQUEZ [facility] [id number] Univers 13:45:00 13:45:00 JOCELYN deras [facility] 2021-01-05 2021-01-05 Outpatient [facility] [id number] Univers 11:00:00 11:00:00 JOCELYN ity o f [facility] 2020-12-29 2020-12-29 Office [facility] 1.2.430.137 [id number] Univers 08:45:08 09:15:08 Visit [facility] C ROTOR BALANCER 350.1.13.10 ity of REGIONAL 4.2.7.2.686 [place] as MATERNAL [phone] [facility] & CHILD [address] [place] [address] 2020-12-29 2020-12-29 Office [facility] 1.2.144.720 [id number] Univers 08:45:08 09:15:08 Visit [facility] ROTOR BALANCER 350.1.13.10 ity of REGIONAL 4.2.7.2.686 [place] as MATERNAL [phone] [address] 2020-12-29 2020-12-29 Outpatient R CHRISTINA [facility] [id number] Univers 08:45:00 08:45:00 JOCELYN mata o f [facility] 2020-12-29 2020-12-29 Orders Doctor PHILL 1.2.840.114 [id number] Univers 00:00:00 00:00:00 Only Unassigned, COLEMAN 350.1.13.10 ity of [place] [facility] 4.2.7.2.686 Golden as [phone] [address] 2020-12-29 2020-12-29 Orders Doctor PHILL 1.2.840.114 [id number] Univers 00:00:00 00:00:00 Only Unassigned, COLEMAN 350.1.13.10 ity of [place] [facility] 4.2.7.2.686 Golden as [phone] [address] 2020-12-19 2020-12-19 Office [facility] 1.2.172.756 [id number] Univers 15:55:19 16:24:05 Visit [facility] C ROTOR BALANCER 350.1.13.10 ity of REGIONAL 4.2.7.2.686 Golden as MATERNAL [phone] [facility] & [address] 2020-12-19 2020-12-19 Office [facility] 1.2.962.993 [id number] Univers 15:55:19 16:24:05 Visit Jocelyn Gray ROTOR BALANCER 350.1.13.10 [facility] 4.2.7.2.686 Golden as MATERNAL [phone] [facility] & CHILD [address] [place] [address] 2020-12-19 2020-12-19 Outpatient [facility] [id number] Univers 16:00:00 16:00:00 JOCELYN mata o [facility] 2020-12-09 2020-12-09 Outpatient R [facility] [id number] Univers 13:00:00 13:00:00 [facility] 2020-11-25 2020-11-25 Office [facility] 1.2.840.114 [id number] 11:48:14 12:04:05 Visit Amanda Ricardo ROTOR BALANCER 350.1.13.10 [facility] 4.2.7.2.686 MATERNAL [phone] & CHILD [address] [place] [address] 2020-11-25 2020-11-25 Office [facility] 1.2.840.114 [id number] Univers 11:48:14 12:04:05 Visit Amanda Ricardo ROTOR BALANCER 350.1.13.10 [facility] 4.2.7.2.686 Golden as MATERNAL [phone] [facility] & CHILD [address] [place] [address] 2020-11-25 2020-11-25 Outpatient R ELENA [facility] [id number] Univers 12:00:00 12:00:00 CARROLA esperanza o [facility] 2020-11-12 2020-11-12 Outpatient [facility] [id number] Univers 09:30:00 09:30:00 JOCELYN deras [facility] 2020-11-07 2020-11-07 Outpatient R CORNELL [facility] [id number] Univers 08:45:00 08:45:00 BHARGAV [facility] 2020-10-22 2020-10-22 Telephone [facility] 1.2.840.114 [id number] Univers 00:00:00 00:00:00 Jocelyn C ROTOR BALANCER 350.1.13.10 ity of [facility] 4.2.7.2.686 Golden as MATERNAL [phone] [facility] ical & CHILD [address] [place] [address] 2020-10-15 2020-10-15 Urgent Provider, [facility] 1.2.840.114 [id number] Univers 12:52:51 13:29:22 Care Evi Rodriguez [facility] 350.1.13.10 ity [facility] 4.2.7.2.686 Golden as Professio [phone] [facility] [address] 2020-10-15 2020-10-15 Outpatient R LOUIS [facility] [id number] Univers 13:00:00 13:00:00 EVI mata [facility] 2020-10-13 2020-10-13 Outpatient R CHRISTINA [facility] [id number] Univers 14:15:00 14:15:00 JOCELYN ity o f [facility] 2020-10-08 2020-10-08 Outpatient P [facility] [id number] Univers 13:00:00 13:00:00 [facility] 2020-10-06 2020-10-06 Outpatient R [facility] [id number] Univers 11:00:00 11:00:00 [facility] 2020-10-02 2020-10-02 [facility]phone [facility] 1.2.840.114 [id number] Univers 00:00:00 00:00:00 Jocelyn C ROTOR BALANCER 350.1.13.10 ity of [facility] 4.2.7.2.686 Golden as MATERNAL [phone] [facility] ical & CHILD [address] [place] [address] 2020-10-01 2020-10-01 Telemarketer Super[facility] 1.2.840. 114 [id number] Univers 10:23:48 10:38:48 Visit Jocelyn Vasquez ROTOR BALANCER 350.1.13. 10 ity of [facility] 4.2.7.2.686 Golden as MATERNAL [phone] Med ical & CHILD [address] [place] [address] 2020-10-01 2020-10-01 Outpatient R [facility] [id number] Univers 10:30:00 10:30:00 ity [facility] 2020-09-30 2020-09-30 Office Josey Koch [facility] 1.2.840.114 [id number] Univers 13:53:34 14:08:34 Visit Health 350.1.13.10 it y of Clear 4.2.7.2.686 [place] már[place] [phone] [address] Office Building 2020-09-30 2020-09-30 Outpatient R JOSEY KOCH [facility] [id number] Univers 14:00:00 14:00:00 ity [facility] 2020-09-29 2020-09-29 Office [facility] 1.2.861.542 [id number] Univers 12:48:08 13:43:12 Visit Jocelyn Gray ROTOR BALANCER 350.1.13.10 ity [facility] 4.2.7.2.686 Golden as MATERNAL [phone] [facility] & CHILD [address] [place] [address] 2020-09-29 2020-09-29 Outpatient R CHRISTINA [facility] [id number] Univers 12:45:00 12:45:00 JOCELYN snyder [facility] 2020-09-23 2020-09-23 Outpatient R CHRISTINA [facility] [id number] Univers 09:00:00 09:00:00 JOCELYN snyder [facility] 2020-09-13 2020-09-13 Nurse China Fine 1.2.840.114 [id number] Univers 00:00:00 00:00:00 Triage COLEMAN 350.1.13.10 it y of HOSPITAL 4.2.7.2.686 Golden as [phone] [address] 2020-09-12 2020-09-12 Telephone Josey Koch [facility] 1.2.840.114 [id number] Univers 00:00:00 00:00:00 Health 350.1.13.10 it y [place]2.7.2.686 [place] [phone] [address] Office Building 2020-09-03 2020-09-03 Outpatient R [facility] [id number] Univers 08:15:00 08:15:00 ity of [facility] 2020-09-01 2020-09-01 Outpatient R CHRISTINA [facility] [id number] Univers 07:45:00 07:45:00 JOCELYN snyder f [facility] 2020-08-28 2020-08-28 [facility]phone [facility] 1.2.840.114 [id number] Univers 00:00:00 00:00:00 Jocelyn C ROTOR BALANCER 350.1.13.10 ity of REGIONAL 4.2.7.2.686 Golden as MATERNAL [phone] [facility] ical & CHILD [address] [place] [address] 2020-08-27 2020-08-27 [facility]phone [facility] 1.2.840.114 [id number] Univers 00:00:00 00:00:00 Jocelyn C ROTOR BALANCER 350.1.13.10 ity of REGIONAL 4.2.7.2.686 Golden as MATERNAL [id number] [facility] & CHILD [address] [place] [address] 2020-08-26 2020-08-26 Initial [facility] 1.2.409.219 [id number] Univers 14:28:27 15:44:22 Jocelyn C ROTOR BALANCER 350.1.13.10 ity of Visit REGIONAL 4.2.7.2.686 Golden as MATERNAL [phone] [facility] & CHILD [address] [place] [address] 2020-08-26 2020-08-26 Outpatient R CHRISTINA [facility] [id number] Univers 14:00:00 14:00:00 JOCELYN deras [facility] 2020-08-26 2020-08-26 Orders Doctor POLLOCK 1.2.840.114 [id number] Univers 00:00:00 00:00:00 Only Unassigned, COLEMAN 350.1.13.10 ity of [place] [facility] 4.2.7.2.686 [place] as [phone] [address] 2020-07-22 2020-07-22 Outpatient R ELENA [facility] [id number] Univers 09:45:00 09:45:00 AMANDA mata o braeden [facility] 2020-07-22 2020-07-22 Outpatient R ELENA [facility] [id number] Univers 09:45:00 09:45:00 AMANDA mata o [facility] 2020-07-22 2020-07-22 Office [facility] 1.2.840.114 [id number] Univers 09:25:38 09:43:35 Visit Amanda R ROTOR BALANCER 350.1.13.10 ity [facility] 4.2.7.2.686 Golden as MATERNAL [id number] [facility] ical & CHILD [address] [place] [address] 2020-07-08 2020-07-08 Office [facility] 1.2.840.114 [id number] Univers 14:20:22 14:44:34 Visit Amanda R ROTOR BALANCER 350.1.13.10 ity [facility] 4.2.7.2.686 Golden as MATERNAL [phone] [facility] & [address] 2020-07-08 2020-07-08 Outpatient R PARKER [facility] [id number] Univers 14:15:00 14:15:00 AMANDA mata o [facility] 2020-07-08 2020-07-08 Patient Frank [facility] 1.2.840.114 [id number] Univers 00:00:00 00:00:00 [facility] 350.1.13.10 i ty of [facility] 4.2.7.2.[place] [phone] [place] dical [address] 2020-06-10 2020-06-10 Outpatient R CHRISTINA [facility] [id number] Univers 09:30:00 09:30:00 JOCELYN esperanza o [facility] 2020-05-21 2020-05-21 Office [facility] 1.2.840.114 [id number] Univers 12:48:35 13:25:07 Visit Amanda R ROTOR BALANCER 350.1.13.10 ity of [facility] 4.2.7.2.686 Golden as MATERNAL [phone] Med ical & CHILD [address] [place] [address] 2020-05-21 2020-05-21 Outpatient R ELENA [facility] [id number] Univers 12:45:00 12:45:00 AMANDA bergery o f [facility] 2020-05-21 2020-05-21 Orders Doctor PHILL 1.2.840.114 [id number] Univers 00:00:00 00:00:00 Only Unassigned, COLEMAN 350.1.13.10 ity of [place] [facility] 4.2.7.2.686 Golden as [phone] [address] 2020-03-18 2020-03-18 [facility] 1.2 .840.114 [id number] Univers 10:31:12 10:55:32 Visit Parker, Amanda Ricardo ROTOR BALANCER 350.1.13.10 ity of [facility] 4.2.7.2.686 Golden as MATERNAL [phone] [facility] ical & CHILD [address] [place] [address] 2020-03-18 2020-03-18 Outpatient R [facility] [id number] Univers 10:30:00 10:30:00 ity of [facility] 2020-03-18 2020-03-18 [facility] [id number] Univers 10:30:00 10:30:00 AMANDA mata o braeden [facility] 2020-03-10 2020-03-10 Telephone [facility] 1.2.840.114 [id number] Univers 00:00:00 00:00:00 Jocelyn Gray ROTOR BALANCER 350.1.13.10 ity of [facility] 4.2.7.2.686 Golden as MATERNAL [phone] [facility] ical & CHILD [address] [place] [address] 2020-03-05 2020-03-05 Office [facility] 1.2.500.353 [id number] Univers 15:35:31 16:27:42 Visit Jocelyn Gray ROTOR BALANCER 350.1.13.10 ity of [facility] 4.2.7.2.686 Golden as MATERNAL [phone] [facility] ical & CHILD [address] [place] [address] 2020-03-05 2020-03-05 Outpatient R CHRISTINA, [facility] [id number] Univers 15:30:00 15:30:00 JOCELYN deras [facility] 2020-03-05 2020-03-05 Outpatient R CHRISTINA, [facility] [id number] Univers 15:30:00 15:30:00 JOCELYN snyder [facility] 2020-02-26 2020-02-26 Orders Doctor PHILL 1.2.840.114 [id number] Univers 00:00:00 00:00:00 Only Unassigned, COLEMAN 350.1.13.10 ity of [place] [facility] 4.2.7.2.686 Golden as [phone] [address] 2020 2020 Outpatient Davion [facility] [id number] Univers 10:30:00 10:30:00 PHILL mata [facility] 2020-02-08 2020-02-08 Office [facility] 1.2.425.861 [id number] Univers 14:38:38 15:30:42 Visit Jocelyn Gray ROTOR BALANCER 350.1.13.10 [facility] 4.2.7.2.686 [place] as MATERNAL [phone] [facility] ical & CHILD [address] [place] [address] 2020-02-08 2020-02-08 Outpatient [facility] [id number] Univers 14:45:00 14:45:00 JOCELYN snyder [facility] 2020-01-30 2020-01-30 Orders Doctor PHILL 1.2.840.114 [id number] Univers 00:00:00 00:00:00 Only Unassigned, COLEMAN 350.1.13.10 ity [facility] 4.2.7.2.686 Golden as [phone] [address] 2020-01-24 2020-01-24 Outpatient Davion [facility] [id number] Univers 08:40:00 08:40:00 PHILL mata [facility] 2020-01-23 2020-01-[address] [facility] 1.2.840.114 [id number] Univers 00:00:00 00:00:00 Tony PRIMARY 350.1.13.10 it y of [place]2.7.2.[place] [id number] [address] 2020-01-23 2020-01-23 Telephone [facility] 1.2.789.187 [id number] Univers 00:00:00 00:00:00 Rosmelissanda R ROTOR BALANCER 350.1.13.10 ity of [facility] 4.2.7.2.686 Golden as MATERNAL [phone] [facility] ical & CHILD [address] [place] [address] 2020-01-21 2020-01-21 Office [facility] 1.2.840.114 [id number] Univers 08:32:46 09:29:11 Visit Raghunda R ROTOR BALANCER 350.1.13.10 ity of [facility] 4.2.7.2.686 Golden as MATERNAL [id number] [facility] & CHILD [address] [place] [address] 2020-01-21 2020-01-21 Outpatient R [facility] [id number] Univers 08:30:00 08:30:00 RAGHUNDA ity o f [facility] 2019-12-27 2020-01-15 Office [facility] 1.2.885.321 [id number] Univers 14:49:24 22:41:22 Visit Phill PRIMARY 350.1.13.10 it y of C[place] 4.2.7.2.[place] [id number] [address] 2019-12-31 2019-12-31 Telephone [facility] 1.2.840.114 [id number] Univers 00:00:00 00:00:00 Jocelyn C ROTOR BALANCER 350.1.13.10 ity of [facility] 4.2.7.2.686 Golden as MATERNAL [phone] [facility] CHILD [address] [place] [address] 2019-12-28 2019-12-28 Office [facility] 1.2.385.071 [id number] Univers 15:18:44 15:56:31 Visit Jocelyn C ROTOR BALANCER 350.1.13.10 ity of [facility] 4.2.7.2.686 Golden as MATERNAL [id number] [facility] ical & CHILD [address] [place] [address] 2019-12-28 2019-12-28 Outpatient R CHRISTINA [facility] [id number] Univers 15:30:00 15:30:00 JOCELYN ity o f [facility] 2019-12-27 2019-12-27 [facility] 1.2.840.114 [id number] Univers 14:56:29 23:59:00 Encounter Phill PRIMARY 350.1.13.10 ity of [facility] 4.2.7.2.686 [place] [id number] [facility] [address] [place] [address] 2019-12-27 2019-12-27 Outpatient [facility] [id number] Univers 14:50:00 14:50:00 [facility] 2019-12-26 2019-12-26 Abstract [facility] 1.2.319.323 [id number] Univers 00:00:00 00:00:00 Jim PRIMARY 350.1.13.10 it y of [facility] 4.2.7.2.[place] [phone] [facility] [address] 2019-12-25 2019-12-25 Nurse Visit, Marybelp Nurse [facility] 1.2 .840.114 [id number] Univers 13:07:45 13:30:36 Visit Amanda Parker ROTOR BALANCER 350.1.13.10 ity REGIONAL 4.2.7.2.686 Golden as MATERNAL [id number] [facility] ical & CHILD [address] [place] [address] 2019-12-25 2019-12-25 Outpatient R ELENA [facility] [id number] Univers 13:00:00 13:00:00 AMANDA mata o braeden [facility] 2019-12-10 2019-12-10 Outpatient R JOSEY KOCH [facility] [id number] Univers 09:30:00 09:30:00 ity of [facility] 2019-10-02 2019-10-02 Nurse [facility] 1.2 .840.114 [id number] Univers 12:50:26 13:05:26 Visit Amanda Parker Davion ROTOR BALANCER 350.1.13.10 ity of [facility] 4.2.7.2.686 Golden as MATERNAL [id number] [facility] ical & CHILD [address] [place] [address] 2019-10-02 2019-10-02 Outpatient R [facility] [id number] Univers 13:00:00 13:00:00 ity [facility] 2019-10-01 2019-10-01 Outpatient R [facility] [id number] Univers 13:00:00 13:00:00 ity [facility] 2019-10-01 2019-10-01 Telephone Christina [facility] 1.2.840.114 [id number] Univers 00:00:00 00:00:00 Jocelyn Gray ROTOR BALANCER 350.1.13.10 ity of [facility] 4.2.7.2.686 Golden as MATERNAL [phone] [facility] & CHILD [address] [place] [address] 2019-08-21 2019-08-21 Orders Doctor PHILL 1..840.114 [id number] Univers 00:00:00 00:00:00 Only Unassigned, COLEMAN 350.1.13.10 ity of [place] [facility] 4.2.7.2.686 Golden as [phone] [address] 2019-07-09 2019-07-09 Nurse Visit, RitoRmchp Nurse [facility] 1.2 .840.114 [id number] Univers 13:42:44 13:57:44 Visit Amanda Parker Davion ROTOR BALANCER 350.1.13.10 ity of [facility] 4.2.7.2.686 Golden as MATERNAL [phone] [facility] CHILD [address] [place] [address] 2019-07-09 2019-07-09 Outpatient R [facility] [id number] Univers 13:30:00 13:30:00 ity [facility] 2019-07-05 2019-07-05 Outpatient R ARELIS [facility] [id number] Univers 09:50:00 09:50:00 PHILL itolivier [facility] 2019-06-11 2019-06-11 Office Josey Koch [facility] 1..840.114 [id number] Univers 09:45:09 10:00:09 Visit Health 350.1.13.10 it y of [place] 4.2.7.2.686 [place] már[place] [id number] [address] Office Building 2019-06-11 2019-06-11 Outpatient R JOSEY KOCH [facility] [id number] Univers 10:00:00 10:00:00 ity [facility] 2019-05-08 2019-05-09 Office Josey Koch [facility] 1.2.840.114 [id number] Univers 13:07:45 11:20:43 Visit Health 350.1.13.10 it y of [place] 4.2.7.2.686 Tex[place] márquez [place] [id number] [address] Office Building 2019-05-03 2019-05-05 Hospital Josey Koch 1.2.840.114 [id number] Univers 08:27:00 13:50:00 Encounter Coleman 350.1.13.10 ity of Hospital 4.2.7.2.686 Golden as [phone] [address] 2019-04-27 2019-04-27 Telephone Josey Koch [facility] 1.2.840.114 [id number] Univers 00:00:00 00:00:00 Health [id number] it y of Cancer 4.2.7.2.686 [facility] [phone] [facility] [address] 2019-03-26 2019-03-26 Outpatient Davion [facility] [id number] Univers 10:39:20 23:59:00 NATA mata [facility] 2019-03-26 2019-03-26 Outpatient Davion DINERO [facility] [id number] Univers 10:39:20 23:59:00 NATA mata [facility] 2019-03-23 2019-03-23 Outpatient Davion D[facility]ERO [facility] [id number] Univers 00:00:00 00:00:00 NATA mata [facility] 2018-12-25 2019-01-02 [facility] 1.2.840.114 [id number] Univers 08:15:33 13:00:13 Roshunda R [employer] 350.1.13.10 ity of Visit REGIONAL 4.2.7.2.686 Golden as MATERNAL [phone] [facility] [address] [place] [address] 2018-12-25 2018-12-25 [facility] [id number] Univers 08:00:00 09:13:28 ROSHUNDA ity o f [facility] 2018-12-21 2018-12-21 [facility] [id number] Univers 08:15:00 08:30:00 Raghunda R ROTOR BALANCER 350.1.13.10 ity of Visit [facility] 4.2.7.2.686 Golden as MATERNAL [phone] [facility] & [address] 2018-12-21 2018-12-21 [facility] [id number] Univers 08:15:00 08:15:00 RAGHUNDA ity o f [facility] 2018-12-02 2018-12-04 [facility] [id number] Univers 00:16:00 15:06:00 Encounter Erika GIBSON 350.1.13.10 ity of [facility] 4.2.7.2.686 [place] [id number] [address] 2018-11-30 2018-11-30 [facility] [id number] Univers 08:54:52 09:13:01 Hetal N ROTOR BALANCER 350.1.13.10 i ty of Visit REGIONAL 4.2.7.2.686 Golden as MATERNAL [phone] [facility] & CHILD [address] [place] [address] 2018-11-23 2018-11-23 [facility] [id number] Univers 08:17:01 08:54:22 Jocelyn Gray ROTOR BALANCER 350.1.13.10 ity of Visit [facility] 4.2.7.2.686 Golden as MATERNAL [id number] [facility] & CHILD [address] [place] [address] 2018-11-16 2018-11-20 [facility] [id number] Univers 10:35:57 11:06:37 Visit Phill PRIMARY 350.1.13.10 it y of CARE 4.2.7.2.686 Shaun JOSEPHON [id number] Pa dical [address] 2018-11-16 2018-11-16 [facility] [id number] Univers 15:15:19 15:55:04 Jocelyn C ROTOR BALANCER 350.1.13.10 ity of Visit REGIONAL 4.2.7.2.686 Golden as MATERNAL [id number] Med ical & CHILD [facility] 2018-11-14 2018-11-14 Abstract [facility] [id number] Univers 00:00:00 00:00:00 Peter Phill PRIMARY 350.1.13.10 ity of CARE 4.2.7.2.686 Shaun márquez PAVILLION [phone] [facility] [address] Results Test Description Test Time Test Comments [...] code = 3257) 250 Negative - Negative [facility] SPECIFIC [id number] 21:51:00 Test Item Value Reference Range Interpretation [...] code = 3257) 250 Negative - Negative [facility] W/O SPECIFIC [id number] 21:51:00 Test Item Value Reference Range Interpretation [...] code = 3257) 250 Negative - Negative [facility]/O SPECIFIC [id number] 21:51:00 Test Item Value Reference Range Interpretation [...] code = 3257) 250 Negative - Negative [facility]. METABOLIC PANEL ([id number])2022-06-22 20:03:18 Test Item Value Reference Range Interpretation Comments NA (test code = 136 mmol/L 135-145 8984998188) K (test code = 4.1 mmol/L 3.5-5.0 5554878034) CL (test code = 104 mmol/L 98-108 2804958410) CO2 TOTAL (test code = 24 mmol/L 23-31 6443762223) AGAP (test code = 8 2-16 9626131227) BUN (test code = 11 mg/dL 7-23 7679591370) GLUCOSE (test code = 96 mg/dL 70-110 5330734481) CREATININE (test code = 0.47 mg/dL 0.50-1.04 L 3520747052) TOTAL BILI (test code = 0.6 mg/dL 0.1-1.8 0652998062) CALCIUM (test code = 8.7 mg/dL 8.6-10.6 8722522740) T PROTEIN (test code = 7.2 g/dL 6.3-8.2 9481949749) ALBUMIN (test code = 4.4 g/dL 3.5-5.0 3632671529) ALK PHOS (test code = 77 U/L 34-122 5912706142) ALTv (test code = 14 U/L 5-35 1742-6) AST(SGOT) (test code = 18 U/L 13-40 6528996190) eGFR (test code = 162.8 mL/min/1.73m2 3542009875) BAN (test code = BAN) Association of [...] tests). Lab Interpretation Abnormal (test code = 73184-1) [facility] 20:03:18 Test Item Value Reference Range Interpretation Comments LIPASE (test code = 7235504003) 56 U/L 0-220 Lab Interpretation (test code = Normal 03725-3) [facility] WITH [id number] 19:45:15 Test Item Value Reference Range Interpretation Comments WBC (test code = 7.23 See_Comment [Automated 6690-2) message] The sy stem which generated this result transmitted reference range : 4.30 - 11.10 10*3/?L. The reference range was not used to interpret this result as normal/abnormal . RBC (test code = 4.53 See_Comment [Automated 789-8) message] The sy stem which generated this [...] (test code = 38.4 fL 39.0-49.9 L 24239-2) RDW-CV (test code = 11.6 % 12.0-15.5 L 788-0) PLT (test code = 339 See_Comment [Automated 777-3) message] The sy stem which generated this result transmitted reference range : 166 - 358 10*3/ ?L. The reference r amy was not used to interpret this result as normal/abnormal . MPV (test code = 9.4 fL 9.5-12.9 L 12585-6) NRBC/100 WBC (test 0.0 See_Comment [Automat ed code = 5189418330) message] The system which generated this result transmitted reference range : 0.0 - 10.0 /100 WBCs. The refer ence range was not u sed to interpret th is result as normal/abnormal . NRBC x10^3 (test code See_Comment [Auto mated = 8755989549) message] The s ystem which generated this result transmitted reference range : 10*3/?L. The reference range was not used to interpret this result as normal/abnormal . GRAN MAT (NEUT) % 68.6 % (test code = 770-8) IMM GRAN % (test code 0.10 % = 1619783892) LYMPH % (test code = 23.2 % 736-9) MONO % (test code = 5.8 % 5905-5) EOS % (test code = 1.9 % 713-8) BASO % (test code = 0.4 % 706-2) GRAN MAT x10^3(ANC) 4.95 10*3/uL 1.88-7.09 (test code = 6174111079) IMM GRAN x10^3 (test 0.00-0.06 code = 6289562153) LYMPH x10^3 (test code 1.68 10*3/uL 1.32-3.29 = 731-0) MONO x10^3 (test code 0.42 10*3/uL 0.33-0.92 = 742-7) EOS x10^3 (test code = 0.14 10*3/uL 0.03-0.39 711-2) BASO x10^3 (test code 0.03 10*3/uL 0.01-0.07 = 704-7) Lab Interpretation Abnormal (test code = 08802-7) [facility] Whole [id number] 19:37:28 Test Item Value Reference Range Interpretation Comments LACTIC ACID (test code = 1.10 mmol/L 0.50-2.20 6331964861) Lab Interpretation (test code = Normal 21094-3) [facility] [id number] 19:20:00 Test Item Value Reference Range Interpretation Comments POCT PREG TEST DATE (test 33110522 code = 3576) POCT PREG LOT # (test code = 3575) [id number] On board controls acceptable with C present Line (test code = 3574) POCT PREG (test code = 1605) negative Lab Interpretation (test code = Normal 45025-7) [facility] URINALYSIS W/O SPECIFIC [id number] 22:35:00 Test Item Value Reference Range Interpretation [...] code = 3257) neg Negative - Negative [facility] URINALYSIS W/O SPECIFIC [id number] 22:35:00 Test Item Value Reference Range Interpretation [...] code = 3257) neg Negative - Negative [facility] [id number] 20:03:00 Test Item Value Reference Range Interpretation Comments POCT PREG (test code = Negative 1605) On board controls Yes acceptable with C Line (test code = 3574) POCT PREG LOT # (test code = 3575) POCT PREG TEST DATE (test code = 357) BAN (test code = BAN) accurate development and interpretation of all internal controls Lab Interpretation Normal (test code = 03275-8) [facility] [id number] 20:03:00 Test Item Value Reference Range Interpretation Comments POCT PREG (test code = Negative 1605) On board controls Yes acceptable with C Line (test code = 3574) POCT PREG LOT # (test code = 3575) POCT PREG TEST DATE (test code = 3576) BAN (test code = BAN) accurate development and interpretation of all internal controls Lab Interpretation Normal (test code = 07820-0) [facility] [id number] 20:03:00 Test Item Value Reference Range Interpretation Comments POCT PREG (test code = Negative 1605) On board controls Yes acceptable with C Line (test code = 3574) POCT PREG LOT # (test code = 3575) POCT PREG TEST DATE (test code = 3576) BAN (test code = BAN) accurate development and interpretation of all internal controls Lab Interpretation Normal (test code = 17350-3) [facility] [id number] 20:03:00 Test Item Value Reference Range Interpretation Comments POCT PREG (test code = Negative 1605) On board controls Yes acceptable with C Line (test code = 3574) POCT PREG LOT # (test code = 3575) POCT PREG TEST DATE (test code = 3576) BAN (test code = BAN) accurate development and interpretation of all internal controls Lab Interpretation Normal (test code = 71855-2) [facility] URINALYSIS W SPECIFIC [id number] 19:03:00 Test Item Value Reference Range Interpretation [...] controls Lab Interpretation Abnormal (test code = 21519-8) [facility] URINALYSIS W SPECIFIC [id number] 19:03:00 Test Item Value Reference Range Interpretation [...] controls Lab Interpretation Abnormal (test code = 92017-0) [facility] URINALYSIS W SPECIFIC [id number] 19:03:00 Test Item Value Reference Range Interpretation [...] controls Lab Interpretation Abnormal (test code = 40735-5) [facility] URINALYSIS W SPECIFIC [id number] 19:03:00 Test Item Value Reference Range Interpretation [...] controls Lab Interpretation Abnormal (test code = 76777-2) [facility] URINALYSIS W SPECIFIC [id number] 22:54:00 Test Item Value Reference Range Interpretation [...] controls Lab Interpretation Abnormal (test code = 42337-8) [facility] URINALYSIS W SPECIFIC [id number] 22:54:00 Test Item Value Reference Range Interpretation [...] controls Lab Interpretation Abnormal (test code = 98578-1) [facility] [id number] 22:54:00 Test Item Value Reference Range Interpretation [...] controls Lab Interpretation Abnormal (test code = 04209-1) [facility]"
[2022-09-19] MEDS ORDERED: dexAMETHasone 10 MG/ML VIAL ONE (17:40)
--- NOTE | 2022-09-19 17:57 | RAD REPORT ---
EXAM DESCRIPTION: RAD - Lumbar Spine 3 Views - 09/19/2022 5:40 pm CLINICAL HISTORY: PAIN COMPARISON: No comparisons TECHNIQUE: Lumbar spine, 3 views. FINDINGS: Lumbar vertebral bodies are normal in height and alignment. Transitional anatomy with at l east partial sacralization of L5. Posterior approach fusion hardware at T11-L2, without evidence of c omplications. No fracture or acute bony process seen. No disc space narrowing. No other significant f indings. IMPRESSION: No acute osseous abnormality. Transitional anatomy and sequelae of prior fusion as above .
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
[2022-09-19 18:48] VITALS: TEMP 99; O2SAT 100
[2022-09-19 18:50] VITALS: BP 134/97
== END 2022-09-19 18:43 | disposition home or self-care (01) ==
LOC: ER 16:53
DX: M54.50 Low back pain, unspecified (principal)
CPT/HCPCS: 72100; 96372; 99284; J1100

== ENCOUNTER 2022-10-12 05:58 | Emergency (ER) | payer OTHER ==
--- OUTSIDE RECORDS SUMMARY | 2022-10-12 06:14 | XMS REPORT | Continuity of Care Document ---
:2000 Author Organization [facility] t Address [address] [facility]. [address] [place] [address] Care Team Providers Name Role Phone GALLITO REISJAMEL BARCENAS Primary Care Physician Unavailable GALINA LIND Attending Clinician Unavailable HENRIETTA SANTOS Attending Clinician Unavailable UNKNOWN, ATTENDING Attending Clinician Unavailable [facility] Attending Clinician Unavailable Angel Sams MD Attending Clinician ANGEL SAMS Attending Clinician Unavailable Aneta Joseph MD Attending Clinician [phone] Chacha Gomez MD Attending Clinician CHACHA GOMEZ Attending Clinician Unavailable Doctor Unassigned, [place] Attending Clinician Unavailable LILIYA PATEL Attending Clinician Unavailable LILIYA PATEL Attending Clinician Unavailable ZULLY HOLT Attending Clinician Unavailable ELIJAH HERNANDEZ Attending Clinician Unavailable Elijah Hernandez MD Attending Clinician Nurse, [facility] Attending Clinician Unavailable Unknown, Attending Attending Clinician Unavailable Steffany Zapata MD Attending Clinician STEFFANY ZAPATA Attending Clinician Unavailable Zully Holt PA-C Attending Clinician Josey Koch MD Attending Clinician JOSEY KOCH Attending Clinician Unavailable Henrietta Santos MD Attending Clinician Faith TANK CAR MECHANICMara Attending Clinician Lab, Ang - Db Attending Clinician Unavailable MARA CUEVAS Attending Clinician Unavailable LORENZA CHEW Attending Clinician Unavailable Lorenza Klein Attending Clinician ROSA ERAZO Attending Clinician Unavailable Kacey TANK CAR MECHANICRosa Chavarria Attending Clinician 2, [facility] Attending Clinician Unavailable LOKESH MISHRA Attending Clinician Unavailable AMANDA PARKER Attending Clinician Unavailable Lokesh Mishra MD Attending Clinician Vaccine, [facility] Attending Clinician Unavailable Moe Marie DO Attending Clinician MOE MARIE Attending Clinician Unavailable Rachel Sanchez RN Attending Clinician Unavailable Yvon Garcia CRNA Attending Clinician Phill Louie MD Attending Clinician Po, [facility] Lab Main Attending Clinician Unavailable 1, [facility] Lab Attending Clinician Unavailable BHARGAV SARABIA Attending Clinician Unavailable Akinmeredith WHCNPJocelyn Attending Clinician [phone] HETAL HOOK Attending Clinician Unavailable [facility] Nurse Vst, [facility] Nrpt Pills Class Attending Clinician Unavailable Hetal Muniz Attending Clinician PHILL INFANTE Attending Clinician Unavailable Arelis JIMENEZ MD, John Attending Clinician Amanda Yates Attending Clinician JOCELYN VASQUEZ Attending Clinician Unavailable Provider, [facility] Attending Clinician Unavailable Evi Greer Attending Clinician EVI RODRIGUEZ Attending Clinician Unavailable Lab, [facility] Attending Clinician Unavailable China Fine RN Attending Clinician Unavailable Visit, [facility] Nurse Attending Clinician Unavailable Tony Lebron MD Attending Clinician Jim Brown MD Attending Clinician NATA DINERO Attending Clinician Unavailable Erika De Leon MD Attending Clinician Gasper Morton MD Attending Clinician ELIJAH HERNANDEZ Admitting Clinician Unavailable ZULLY HOLT Admitting Clinician Unavailable HENRIETTA SANTOS Admitting Clinician Unavailable Henrietta Santos MD Admitting Clinician Josey Koch MD Admitting Clinician NATA DINERO Admitting Clinician Unavailable Erika De Leon MD Admitting Clinician [phone] Payers Payer Name Policy Type Policy Number Effective Date Expiration Date Yulisa rosenthal [employer] [id number] 2022 00:00:00 MEDICAID PENDING PENDING 2020 00:00:00 Problems Condition Condition Condition Status Onset Resolution Last Treating Co mments Source Name Details Category Date Date Treatment Clinician Date Cysts of Cysts of Disease Active Unive rs both both 4-04 ity of ovaries ovaries 00:00: [address] Pain Pain Disease Active Univers pelvic pelvic 4-04 ity of 00:00: [address] Branch Obesity Obesity Disease Active Univers (BMI (BMI 7-13 ity of 30-39.9) 30-39.9) 00:00: [address] Branch Postoperat Postoperat Disease Active U nivers adalgisa adalgisa 6- ity of dehisc[place] Medical wound, wound, Branch initial initial encounter encounter Status Status Disease Active Univers post post 10-06 [place] bilateral [place] sal[place] sal[place] Me dical chris chris Branch Encounter Encounter Disease Active Uni vers for for 6 it[place] of Nexplanon [place] Encounter Encounter Disease Active Overview: Univers for tubal for tubal 09-16 Formattin i ty of ligation ligation 00:00: g of this [place] 00 note Medical might be Branch different from the original. Added automatic ally from request for surgery [id number] Nexplanon Nexplanon Disease Active Uni vers in [...] Active Univers ALLERGIE Class ity of S [facility] Social History Social Habit Start Date Stop Date Quantity Comments Source History SDOH University o f Alcohol Frequency [facility] edical Branch History SDOH University o f Alcohol Std [place] Medical Drinks Branch History SDOH University o f Alcohol Binge [place] Medic al Branch Exposure to 2022-07-31 2022-08-10 Not sure University SARS-CoV-2 00:00:00 08:50:00 [facility] (event) Branch Alcohol intake 2022-08-10 2022-08-10 Current drinker of Un iversity of 00:00:00 00[facility]00:[facility] use and 2021-10-28 2021-10-28 Smokeless tobacco Un iversity of exposure 00:00:00 00:00:00 non-user [facility] Alcohol Comment 2021-08-24 2021-08-24 occasionally Univers ity of 00:00:00 00:00:00 [facility] Sex Assigned At [birth year] Universit y of 00:00:00 00:00:00 [facility] Smoking Status Start Date Stop Date Source Never smoked tobacco [facility] Medications Ordered Filled Start Stop Current Ordering Indication Dosage Frequency Signature Comments Components Source Medication Medication Date Date Medication? Clinician (SIG) Name Name dicyclomine Yes [id number] 10mg Take 1 Univers 10 mg 4-25 [id number] capsule by ity of capsule 00:00: mouth [place] 00 every 6 Medical (six) Branch hours as needed for Abdominal pain. dicyclomine Yes [id number] 10mg Take 1 Univers 10 mg 4-25 [id number] capsule by ity of capsule 00:00: mouth [place] 00 every 6 Medical (six) Branch hours as needed for Abdominal pain. dicyclomine 0 Yes [id number] 10mg Take 1 Univers 10 mg 4-25 [id number] capsule by ity of capsule 00:00: mouth [place] 00 every 6 Medical (six) Branch hours as needed for Abdominal pain. dicyclomine Yes [id number] 10mg Take 1 Univers 10 mg 4-25 [id number] capsule by ity of capsule 00:00: mouth [place] 00 every 6 Medical (six) Branch hours as needed for Abdominal pain. predniSONE 2022- Yes [id number] Take 3 Univers 10 mg 4-25 06-07 [id number] tablets by ity of tablet 00:00: 04:59 mouth [place] 00 :00 daily for Medical 14 days, Branch THEN 2 tablets daily for 14 days, THEN 1 tablet daily for 14 days. predniSONE 2022- Yes [id number] Take 3 Univers 10 mg 4-25 06-07 [id number] tablets by ity of tablet 00:00: 04:59 mouth [place] 00 :00 daily for Medical 14 days, Branch THEN 2 tablets daily for 14 days, THEN 1 tablet daily for 14 days. predniSONE 2022- Yes [id number] Take 3 Univers 10 mg 4-25 06-07 [id number] tablets by ity of tablet 00:00: 04:59 mouth [place] 00 :00 daily for Medical 14 days, Branch THEN 2 tablets daily for 14 days, THEN 1 tablet daily for 14 days. predniSONE 2022- Yes [id number] Take 3 Univers 10 mg 4-25 06-07 [id number] tablets by ity of tablet 00:00: 04:59 mouth [place] 00 :00 daily for Medical 14 days, Branch THEN 2 tablets daily for 14 days, THEN 1 tablet daily for 14 days. omeprazole 0 Yes [id number] 20mg Take 1 Univers 20 mg 4-05 [id number] capsule by ity of capsule 00:00: mouth in [place] 00 the Medical morning. Branch azaTHIOprin 0 Yes [id number] 50mg Take 1 Univers e 50 mg 4-05 [id number] tablet by ity of tablet 00:00: mouth in [place] 00 the Medical morning. Branch omeprazole 2023-0 Yes [id number] 20mg Take 1 Univers 20 mg 4-05 [id number] capsule by ity of capsule 00:00: mouth in [place] 00 the Medical morning. Branch azaTHIOprin 2023-0 Yes [id number] 50mg Take 1 Univers e 50 mg 4-05 [id number] tablet by ity of tablet 00:00: mouth in [place] 00 the Medical morning. Branch omeprazole 2023-0 Yes [id number] 20mg Take 1 Univers 20 mg 4-05 [id number] capsule by ity of capsule 00:00: mouth in [place] 00 the Medical morning. Branch azaTHIOprin 2023-0 Yes [id number] 50mg Take 1 Univers e 50 mg 4-05 [id number] tablet by ity of tablet 00:00: mouth in [place] 00 the Medical morning. Branch omeprazole 3-0 Yes [id number] 20mg Take 1 Univers 20 mg 4-05 [id number] capsule by ity of capsule 00:00: mouth in [place] 00 the Medical morning. Branch azaTHIOprin 3-0 Yes [id number] 50mg Take 1 Univers e 50 mg 4-05 [id number] tablet by ity of tablet 00:00: mouth in [place] 00 the Medical morning. Branch omeprazole 3-0 Yes [id number] 20mg Take 1 Univers 20 mg 4-05 [id number] capsule by ity of capsule 00:00: mouth in [place] 00 the Medical morning. Branch azaTHIOprin 3-0 Yes [id number] 50mg Take 1 Univers e 50 mg 4-05 [id number] tablet by ity of tablet 00:00: mouth in [place] 00 the Medical morning. Branch omeprazole 2023-0 Yes [id number] 20mg Take 1 Univers 20 mg 4-05 [id number] capsule by ity of capsule 00:00: mouth in [place] 00 the Medical morning. Branch azaTHIOprin 2023-0 Yes [id number] 50mg Take 1 Univers e 50 mg 4-05 [id number] tablet by ity of tablet 00:00: mouth in [place] 00 the Medical morning. Branch omeprazole 2023-0 Yes [id number] 20mg Take 1 Univers 20 mg 4-05 [id number] capsule by ity of capsule 00:00: mouth in [place] 00 the Medical morning. Branch azaTHIOprin 2023-0 Yes [id number] 50mg Take 1 Univers e 50 mg 4-05 [id number] tablet by ity of tablet 00:00: mouth in [place] 00 the Medical morning. Branch azaTHIOprin 3-0 Yes [id number] 50mg Take 1 Univers e 50 mg 3-31 [id number] tablet by ity of tablet 00:00: mouth in [place] 00 the Medical morning. Branch azaTHIOprin 3-0 Yes [id number] 50mg Take 1 Univers e 50 mg 3-31 [id number] tablet by ity of tablet 00:00: mouth in [place] 00 the Medical morning. Branch azaTHIOprin 2022-0 Yes [id number] 50mg Take 1 Univers e 50 mg 3-31 [id number] tablet by ity of tablet 00:00: mouth in [place] 00 the Medical morning. Branch azaTHIOprin 2022-0 2023- No [id number] 50mg Take 1 Univers e 50 mg 3-31 04-05 [id number] tablet by ity o f tablet 00:00: 00:00 mouth in [place] 00 :00 the Medical morning. Branch dicyclomine 3-0 Yes [id number] 10mg Take 1 Univers 10 mg 3-21 [id number] capsule by ity of capsule 00:00: mouth [place] 00 every 6 Medical (six) Branch hours as needed for Abdominal pain. dicyclomine 3-0 Yes [id number] 10mg Take 1 Univers 10 mg 3-21 [id number] capsule by ity of capsule 00:00: mouth [place] 00 every 6 Medical (six) Branch hours as needed for Abdominal pain. dicyclomine 3-0 Yes [id number] 10mg Take 1 Univers 10 mg 3-21 [id number] capsule by ity of capsule 00:00: mouth [place] 00 every 6 Medical (six) Branch hours as needed for Abdominal pain. dicyclomine 3-0 Yes [id number] 10mg Take 1 Univers 10 mg 3-21 [id number] capsule by ity of capsule 00:00: mouth [place] 00 every 6 Medical (six) Branch hours as needed for Abdominal pain. dicyclomine 3-0 Yes [id number] 10mg Take 1 Univers 10 mg 3-21 [id number] capsule by ity of capsule 00:00: mouth [place] 00 every 6 Medical (six) Branch hours as needed for Abdominal pain. dicyclomine 3-0 Yes [id number] 10mg Take 1 Univers 10 mg 3-21 [id number] capsule by ity of capsule 00:00: mouth [place] 00 every 6 Medical (six) Branch hours as needed for Abdominal pain. dicyclomine 2023-0 Yes [id number] 10mg Take 1 Univers 10 mg 3-21 [id number] capsule by ity of capsule 00:00: mouth [place] 00 every 6 Medical (six) Branch hours as needed for Abdominal pain. dicyclomine 3-0 Yes [id number] 10mg Take 1 Univers 10 mg 3-21 [id number] capsule by ity of capsule 00:00: mouth [place] 00 every 6 Medical (six) Branch hours as needed for Abdominal pain. dicyclomine 3-0 Yes [id number] 10mg Take 1 Univers 10 mg 3-21 [id number] capsule by ity of capsule 00:00: mouth [place] 00 every 6 Medical (six) Branch hours as needed for Abdominal pain. dicyclomine 3-0 Yes [id number] 10mg Take 1 Univers 10 mg 3-21 [id number] capsule by ity of capsule 00:00: mouth [place] 00 every 6 Medical (six) Branch hours as needed for Abdominal pain. dicyclomine 3-0 Yes [id number] 10mg Take 1 Univers 10 mg 3-21 [id number] capsule by ity of capsule 00:00: mouth [place] 00 every 6 Medical (six) Branch hours as needed for Abdominal pain. dicyclomine 3-0 Yes [id number] 10mg Take 1 Univers 10 mg 3-21 [id number] capsule by ity of capsule 00:00: mouth [place] 00 every 6 Medical (six) Branch hours as needed for Abdominal pain. dicyclomine 3-0 Yes [id number] 10mg Take 1 Univers 10 mg 3-21 [id number] capsule by ity of capsule 00:00: mouth [place] 00 every 6 Medical (six) Branch hours as needed for Abdominal pain. dicyclomine 3-0 Yes [id number] 10mg Take 1 Univers 10 mg 3-21 [id number] capsule by ity of capsule 00:00: mouth [place] 00 every 6 Medical (six) Branch hours as needed for Abdominal pain. omeprazole 3-0 2023- No [id number] 20mg Take 1 Univers 20 mg 3-21 06-20 [id number] capsule by ity of capsule 00:00: 04:59 mouth in [place] 00 :00 the Medical morning Branch for 90 days. omeprazole 3-0 2023- No [id number] 20mg Take 1 Univers 20 mg 3-21 06-20 [id number] capsule by ity of capsule 00:00: 04:59 mouth in [place] 00 :00 the Medical morning Branch for 90 days. omeprazole 2023-0 3- No [id number] 20mg Take 1 Univers 20 mg 3-21 06-20 [id number] capsule by ity of capsule 00:00: 04:59 mouth in [place] 00 :00 the Medical morning Branch for 90 days. omeprazole 2023-0 3- No [id number] 20mg Take 1 Univers 20 mg 3-21 06-20 [id number] capsule by ity of capsule 00:00: 04:59 mouth in [place] 00 :00 the Medical morning Branch for 90 days. omeprazole 3-0 3- No [id number] 20mg Take 1 Univers 20 mg 3-21 06-20 [id number] capsule by ity of capsule 00:00: 04:59 mouth in [place] 00 :00 the [facility] morning Branch for 90 days. omeprazole 3-0 3- No [id number] 20mg Take 1 Univers 20 mg 3-21 06-20 [id number] capsule by ity of capsule 00:00: 04:59 mouth in [place] 00 :00 the [facility] morning Branch for 90 days. omeprazole 3-0 3- No [id number] 20mg Take 1 Univers 20 mg 3-21 06-20 [id number] capsule by ity of capsule 00:00: 04:59 mouth in [place] 00 :00 the [facility] morning Branch for 90 days. omeprazole 3-0 3- No [id number] 20mg Take 1 Univers 20 mg 3-21 06-20 [id number] capsule by ity of capsule 00:00: 04:59 mouth in [place] 00 :00 the [facility] morning Branch for 90 days. omeprazole 2023-0 3- No [id number] 20mg Take 1 Univers 20 mg 3-21 06-20 [id number] capsule by ity of capsule 00:00: 04:59 mouth in [place] 00 :00 the [facility] morning Branch for 90 days. omeprazole 2023-0 3- No [id number] 20mg Take 1 Univers 20 mg 3-21 06-20 [id number] capsule by ity of capsule 00:00: 04:59 mouth in [place] 00 :00 the [facility] morning Branch for 90 days. omeprazole 2023-0 3- No [id number] 20mg Take 1 Univers 20 mg 3-21 -20 [id number] capsule by ity of capsule 00:00: 04:59 mouth in [place] 00 :00 the Medical morning Branch for 90 days. predniSONE 2022-2022- No [id number] Take 4 Univers 10 mg 3-21 -12 [id number] tablets by ity of tablet 00:00: 04:59 mouth [place] 00 :00 daily for Medical 30 days, Branch THEN 3 tablets daily for 7 days, THEN 2 tablets daily for 7 days, THEN 1 tablet daily for 7 days. predniSONE 2022-2022- No [id number] Take 4 Univers 10 mg 3-21 05-12 [id number] tablets by ity of tablet 00:00: 04:59 mouth [place] 00 :00 daily for Medical 30 days, Branch THEN 3 tablets daily for 7 days, THEN 2 tablets daily for 7 days, THEN 1 tablet daily for 7 days. predniSONE 2022-2022- No [id number] Take 4 Univers 10 mg 3-21 -12 [id number] tablets by ity of tablet 00:00: 04:59 mouth [place] 00 :00 daily for Medical 30 days, Branch THEN 3 tablets daily for 7 days, THEN 2 tablets daily for 7 days, THEN 1 tablet daily for 7 days. predniSONE 2022-0 2022- No [id number] Take 4 Univers 10 mg 3-21 -12 [id number] tablets by ity of tablet 00:00: 04:59 mouth [place] 00 :00 daily for Medical 30 days, Branch THEN 3 tablets daily for 7 days, THEN 2 tablets daily for 7 days, THEN 1 tablet daily for 7 days. predniSONE 2022-2022- No [id number] Take 4 Univers 10 mg 3-21 -12 [id number] tablets by ity of tablet 00:00: 04:59 mouth [place] 00 :00 daily for Medical 30 days, Branch THEN 3 tablets daily for 7 days, THEN 2 tablets daily for 7 days, THEN 1 tablet daily for 7 days. predniSONE 2022-2022- No [id number] Take 4 Univers 10 mg 3-21 05-12 [id number] tablets by ity of tablet 00:00: 04:59 mouth [place] 00 :00 daily for Medical 30 days, Branch THEN 3 tablets daily for 7 days, THEN 2 tablets daily for 7 days, THEN 1 tablet daily for 7 days. predniSONE 2022- No [id number] Take 4 Univers 10 mg 3-21 05-12 [id number] tablets by ity of tablet 00:00: 04:59 mouth [place] 00 :00 daily for Medical 30 days, Branch THEN 3 tablets daily for 7 days, THEN 2 tablets daily for 7 days, THEN 1 tablet daily for 7 days. predniSONE 2022-2022- No [id number] Take 4 Univers 10 mg 3-21 05-12 [id number] tablets by ity of tablet 00:00: 04:59 mouth [place] 00 :00 daily for Medical 30 days, Branch THEN 3 tablets daily for 7 days, THEN 2 tablets daily for 7 days, THEN 1 tablet daily for 7 days. predniSONE 2022-2022- No [id number] Take 4 Univers 10 mg 3-21 05-12 [id number] tablets by ity of tablet 00:00: 04:59 mouth [place] 00 :00 daily for Medical 30 days, Branch THEN 3 tablets daily for 7 days, THEN 2 tablets daily for 7 days, THEN 1 tablet daily for 7 days. predniSONE 2022- No [id number] Take 4 Univers 10 mg 3-21 05-12 [id number] tablets by ity of tablet 00:00: 04:59 mouth [place] 00 :00 daily for Medical 30 days, Branch THEN 3 tablets daily for 7 days, THEN 2 tablets daily for 7 days, THEN 1 tablet daily for 7 days. predniSONE 2022-2022- No [id number] Take 4 Univers 10 mg 3-21 05-12 [id number] tablets by ity of tablet 00:00: 04:59 mouth [place] 00 :00 daily for Medical 30 days, Branch THEN 3 tablets daily for 7 days, THEN 2 tablets daily for 7 days, THEN 1 tablet daily for 7 days. predniSONE 2022- No [id number] Take 4 Univers 10 mg 3-21 05-12 [id number] tablets by ity of tablet 00:00: 04:59 mouth [place] 00 :00 daily for Medical 30 days, Branch THEN 3 tablets daily for 7 days, THEN 2 tablets daily for 7 days, THEN 1 tablet daily for 7 days. predniSONE 2022-2022- No [id number] Take 4 Univers 10 mg 3-21 05-12 [id number] tablets by ity of tablet 00:00: 04:59 mouth [place] 00 :00 daily for Medical 30 days, Branch THEN 3 tablets daily for 7 days, THEN 2 tablets daily for 7 days, THEN 1 tablet daily for 7 days. predniSONE 2022-0 2022- No [id number] Take 4 Univers 10 mg 3-21 05-12 [id number] tablets by ity of tablet 00:00: 04:59 mouth [place] 00 :00 daily for Medical 30 days, Branch THEN 3 tablets daily for 7 days, THEN 2 tablets daily for 7 days, THEN 1 tablet daily for 7 days. predniSONE 2022-0 2022- No [id number] Take 4 Univers 10 mg 3-21 05-12 [id number] tablets by ity of tablet 00:00: 04:59 mouth [place] 00 :00 daily for Medical 30 days, Branch THEN 3 tablets daily for 7 days, THEN 2 tablets daily for 7 days, THEN 1 tablet daily for 7 days. predniSONE 2022-0 2022- No [id number] Take 4 Univers 10 mg 3-21 05-12 [id number] tablets by ity of tablet 00:: :59 mouth [place] 00 :00 daily for Medical 30 days, Branch THEN 3 tablets daily for 7 days, THEN 2 tablets daily for 7 days, THEN 1 tablet daily for 7 days. predniSONE 2022-0 2022- No [id number] Take 4 Univers 10 mg 3-21 -12 [id number] tablets by ity of tablet 00:: 04:59 mouth [place] 00 :00 daily for Medical 30 days, Branch THEN 3 tablets daily for 7 days, THEN 2 tablets daily for 7 days, THEN 1 tablet daily for 7 days. predniSONE 2022-0 2022- No [id number] Take 4 Univers 10 mg 3-21 05-12 [id number] tablets by ity of tablet 00:: 04:59 mouth [place] 00 :00 daily for Medical 30 days, Branch THEN 3 tablets daily for 7 days, THEN 2 tablets daily for 7 days, THEN 1 tablet daily for 7 days. dicyclomine 2022-0 3- No [id number] 10mg Take 1 Univers 10 mg 3-21 -25 [id number] capsule by ity of capsule 00:00: 00:00 mouth [place] 00 :00 every 6 Medical (six) Branch hours as needed for Abdominal pain. dicyclomine 2022-0 3- No [id number] 10mg Take 1 Univers 10 mg 3-21 -25 [id number] capsule by ity of capsule 00:00: 00:00 mouth [place] 00 :00 every 6 Medical (six) Branch hours as needed for Abdominal pain. dicyclomine 2022-0 3- No [id number] 10mg Take 1 Univers 10 mg 3-21 08-1000 capsule by ity of capsule 00:00: 00:00 mouth [place] 00 :00 every 6 Medical (six) Branch hours as needed for Abdominal pain. omeprazole 2022-0 2022- No [id number] 20mg Take 1 Univers 20 mg 3-21 - [id number] capsule by ity of capsule 00:00: 00:00 mouth in [place] 00 :00 the Medical morning Branch for 90 days. solifenacin 2022-0 Yes [id number] 10mg Take 1 Univers (VESICARE) 3-10 tablet by ity of 10 mg 00:00: mouth in [place] tablet 00 the Medical morning. Branch solifenacin 2022-0 Yes [id number] 10mg Take 1 Univers (VESICARE) 3-10 tablet by ity of 10 mg 00:00: mouth in [place] tablet 00 the Medical morning. Branch solifenacin 2022-0 Yes [id number] 10mg Take 1 Univers (VESICARE) 3-10 tablet by ity of 10 mg 00:00: mouth in [place] tablet 00 the Medical morning. Branch solifenacin 2022-0 Yes [id number] 10mg Take 1 Univers (VESICARE) 3-10 tablet by ity of 10 mg 00:00: mouth in [place] tablet 00 the Medical morning. Branch solifenacin 2022-0 Yes [id number] 10mg Take 1 Univers (VESICARE) 3-10 tablet by ity of 10 mg 00:00: mouth in [place] tablet 00 the Medical morning. Branch solifenacin 2022-0 Yes [id number] 10mg Take 1 Univers (VESICARE) 3-10 tablet by ity of 10 mg 00:00: mouth in [place] tablet 00 the Medical morning. Branch solifenacin 3-0 Yes [id number] 10mg Take 1 Univers (VESICARE) 3-10 tablet by ity of 10 mg 00:00: mouth in [place] tablet 00 the Medical morning. Branch solifenacin 2022-0 Yes [id number] 10mg Take 1 Univers (VESICARE) 3-10 tablet by ity of 10 mg 00:00: mouth in [place] tablet 00 the Medical morning. Branch solifenacin 2023-0 Yes [id number] 10mg Take 1 Univers (VESICARE) 3-10 tablet by ity of 10 mg 00:00: mouth in [place] tablet 00 the Medical morning. Branch solifenacin 2023-0 Yes [id number] 10mg Take 1 Univers (VESICARE) 3-10 tablet by ity of 10 mg 00:00: mouth in [place] tablet 00 the Medical morning. Branch solifenacin 2023-0 Yes [id number] 10mg Take 1 Univers (VESICARE) 3-10 tablet by ity of 10 mg 00:00: mouth in [place] tablet 00 the Medical morning. Branch solifenacin 2023-0 Yes [id number] 10mg Take 1 Univers (VESICARE) 3-10 tablet by ity of 10 mg 00:00: mouth in [place] tablet 00 the Medical morning. Branch solifenacin 2023-0 Yes [id number] 10mg Take 1 Univers (VESICARE) 3-10 tablet by ity of 10 mg 00:00: mouth in [place] tablet 00 the Medical morning. Branch solifenacin 2023-0 Yes [id number] 10mg Take 1 Univers (VESICARE) 3-10 tablet by ity of 10 mg 00:00: mouth in [place] tablet 00 the Medical morning. Branch solifenacin 2023-0 Yes [id number] 10mg Take 1 Univers (VESICARE) 3-10 tablet by ity of 10 mg 00:00: mouth in [place] tablet 00 the Medical morning. Branch solifenacin 2023-0 Yes [id number] 10mg Take 1 Univers (VESICARE) 3-10 tablet by ity of 10 mg 00:00: mouth in [place] tablet 00 the Medical morning. Branch solifenacin 2023-0 Yes [id number] 10mg Take 1 Univers (VESICARE) 3-10 tablet by ity of 10 mg 00:00: mouth in [place] tablet 00 the Medical morning. Branch solifenacin 2023-0 Yes [id number] 10mg Take 1 Univers (VESICARE) 3-10 tablet by ity of 10 mg 00:00: mouth in [place] tablet 00 the Medical morning. Branch solifenacin 2023-0 Yes [id number] 10mg Take 1 Univers (VESICARE) 3-10 tablet by ity of 10 mg 00:00: mouth in [place] tablet 00 the Medical morning. Branch solifenacin 2023-0 Yes [id number] 10mg Take 1 Univers (VESICARE) 3-10 tablet by ity of 10 mg 00:00: mouth in [place] tablet 00 the Medical morning. Branch solifenacin 2023-0 Yes [id number] 10mg Take 1 [facility] (VESICARE) 3-10 tablet by ity of 10 mg 00:00: mouth in [place] tablet 00 the Medical morning. Branch solifenacin 3-0 Yes [id number] 10mg Take 1 [facility] (VESICARE) 3-10 tablet by ity of 10 mg 00:00: mouth in [place] tablet 00 the Medical morning. Branch solifenacin 3-0 Yes [id number] 10mg Take 1 [facility] (VESICARE) 3-10 tablet by ity of 10 mg 00:00: mouth in [place] tablet 00 the Medical morning. Branch solifenacin 3-0 Yes [id number] 10mg Take 1 [facility] (VESICARE) 3-10 tablet by ity of 10 mg 00:00: mouth in [place] tablet 00 the Medical morning. Branch FENTanyl PF 2022-0 2022- No 75ug 75 mcg, Un shobha (SUBLIMAZE 06-22 Slow IV ity o f (PF)) 23:45: 22:58 Push, [place] injection 00 :00 ONCE, 1 Medical 75 mcg dose, On Emma Tue06/22/22 at 1745, STAT iopamidol 2022-0 2022- No [id number] 87mL 87 mL, Univers (ISOVUE 06-22 Intravenou ity o f 370-500 mL) 22:00: 22:00 s, ONCE, 1 [place] injection 00 :00 dose, On Medica l 87 mL Tue06/22/22 Branch at 1600, Routine FENTanyl PF 2022-0 2022- No 75ug 75 mcg, Un shobha (SUBLIMAZE 06-22 Slow IV ity o f (PF)) 20:30: 19:35 Push, [place] injection 00 :00 ONCE, 1 Medical 75 mcg dose, On [place] 3/7/23 at 1430, STAT metoclopram 3-0 2023- No 10mg 10 mg, Uni vers [...] (scale 4-6). Indication s: acute pain methylPREDN 3-0 Yes [id number] Take by [facility] 4 06-22 mouth ity of mg tablets 00:00: [place]-INSTRU [place] 00 CTIONS. Medical follow Branch package directions traMADoL 50 2022-0 Yes [id number] 50mg Take 1 Univ ers mg tablet 3-07 tablet by ity o f 00:00: mouth [place] 00 every 6 Medical (six) Branch hours as needed for Pain (scale 4-6). Indication s: acute pain methylPREDN 3-0 Yes [id number] Take by [facility] 4 06-22 mouth ity of mg tablets 00:00: [place]-INSTRU [place] 00 CTIONS. Medical follow Branch package directions traMADoL 50 3-0 Yes [id number] 50mg Take 1 Univ ers mg tablet 3-07 tablet by ity o f 00:00: mouth [place] 00 every 6 Medical (six) Branch hours as needed for Pain (scale 4-6). Indication s: acute pain methylPREDN 3-0 Yes [id number] Take by [facility] 4 06-22 mouth ity of mg tablets 00:00: SEE-INSTRU [place] 00 CTIONS. Medical follow Branch package directions traMADoL 50 3-0 Yes [id number] 50mg Take 1 Univ ers mg tablet 3-07 tablet by ity o f 00:00: mouth [place] 00 every 6 Medical (six) Branch hours as needed for Pain (scale 4-6). Indication s: acute pain methylPREDN 2023-0 Yes [id number] Take by [facility] 4 06-22 mouth ity of mg tablets 00:00: SEE-INSTRU [place] 00 CTIONS. Medical follow Branch package directions traMADoL 50 2023-0 Yes [id number] 50mg Take 1 Univ ers mg tablet 3-07 tablet by ity o f 00:00: mouth [place] 00 every 6 Medical (six) Branch hours as needed for Pain (scale 4-6). Indication s: acute pain methylPREDN 2022-0 [id number] [facility] [id number] mouth ity of mg tablets 00:00: SEE-INSTRU [...] 4-6). Indication s: acute pain methylPREDN 2022-0 2022- No [id number] Take by [place] [address] 06-22 mouth ity of mg tablets 00:00: 00:00 SEE-INSTRU [place] 00 :00 CTIONS. Medical follow Branch package directions methylPREDN 2022-0 2022- No [id number] Take by [place] [address]2018 06-22 mouth ity of mg tablets 00:00: 00:00 SEE-INSTRU [place] 00 :00 CTIONS. Medical follow Branch package directions methylPREDN 3-0 3- No [id number] Take by [place] [address]2018 06-22 [id number] mouth ity of mg tablets 00:00: 00:00 SEE-INSTRU [place] 00 :00 CTIONS. Medical follow Branch package directions methylPREDN 3-0 3- No [id number] Take by [place] [address] 06-22 mouth ity of mg tablets 00:00: [...] Muscle Medical Spasms. Branch solifenacin 2022- No [id number] 10mg Take 1 [facility] (VESICARE) 05-19 tablet by ity of 10 mg 00:00: 05:59 mouth in [place] tablet 00 :00 the Medical morning Branch for 30 days. solifenacin 2022- No [id number] 10mg Take 1 [facility] (VESICARE) 05-19 tablet by ity of 10 mg 00:00: 05:59 mouth in [place] tablet 00 :00 the Medical morning Branch for 30 days. solifenacin 2022- No [id number] 10mg Take 1 [facility] (VESICARE) 05-19 tablet by ity of 10 mg 00:00: 05:59 mouth in [place] tablet 00 :00 the Medical morning Branch for 30 days. fluconazole 2022- No [id number] 150mg Take 1 [facility] (DIFLUCAN) 05-18 tablet by ity of 150 mg 00:00: 05:59 mouth [place] tablet 00 :00 now for 1 Medical dose. Branch cyclobenzap Yes 10mg Take 10 mg Univers rine 10 mg 1-24 by mouth ity o f tablet 16:00: as needed [place] 24 for Muscle Medical Spasms. Branch cyclobenzap Yes 10mg Take 10 mg Univers rine 10 mg 1-24 by mouth ity o f tablet 16:00: as needed [place] 24 for Muscle Medical Spasms. Branch cyclobenzap Yes 10mg Take 10 mg Univers rine 10 mg 1-24 by mouth ity o f tablet 16:00: as needed [place] 24 for Muscle Medical Spasms. Branch fluconazole 2021-04- No [id number] 150mg Take 1 [facility] (DIFLUCAN) 05-30 tablet by ity of 150 mg 00:00: 05:59 mouth [place] tablet 00 :00 now for 1 Medical dose. Branch fluconazole 2021-04- No [id number] 150mg Take 1 [facility] (DIFLUCAN) 05-30 tablet by ity of 150 mg 00:00: 05:59 mouth [place] tablet 00 :00 now for 1 Medical dose. Branch fluconazole 2021-04- No [id number] 150mg Take 1 [facility] (DIFLUCAN) 05-30 tablet by ity of 150 mg 00:00: 05:59 mouth [place] tablet 00 :00 now for 1 Medical dose. Branch ampicillin 2021-04- No [id number] 500mg Take 1 [facility] 500 mg 05-29 capsule by ity of capsule 00:00: 05:59 mouth [place] 00 :00 every 6 Medical (six) Branch hours for 7 days. ampicillin 2021-04- No [id number] 500mg Take 1 [facility] 500 mg 05-29 capsule by ity of capsule 00:00: 05:59 mouth [place] 00 :00 every 6 Medical (six) Branch hours for 7 days. ampicillin 2021-04- No [id number] 500mg Take 1 [facility] 500 mg 05-29 capsule by ity of capsule 00:00: 05:59 mouth [place] 00 :00 every 6 Medical (six) Branch hours for 7 days. ampicillin 2021-04- No [id number] 500mg Take 1 [facility] 500 mg 05-29 capsule by ity of capsule 00:00: 05:59 mouth [place] 00 :00 every 6 Medical (six) Branch hours for 7 days. ampicillin 2021-04- No [id number] 500mg Take 1 [facility] 500 mg 05-29 capsule by ity of capsule 00:00: 05:59 mouth [place] 00 :00 every 6 Medical (six) Branch hours for 7 days. ampicillin 2021-04- No [id number] 500mg Take 1 [facility] 500 mg 05-29 capsule by ity of capsule 00:00: 05:59 mouth [place] 00 :00 every 6 Medical (six) Branch hours for 7 days. triamcinolo 2021-04- No [id number] 40mg [facility] ne 04-28 ity of acetonide 20:15: 19:31 [place] (KENALOG) 00 :00 Medical injection Branch 40 mg triamcinolo 2021-04- No [id number] 40mg 40 mg, Univers ne 04-28 Intramuscu ity of acetonide 20:15: 19:31 [place], ONCE, [place] (KENALOG) 00 :00 1 dose, On Medi suleiman injection Fri Branch 40 mg 02/26/22 at 1415, Routine triamcinolo 2021-04- No [id number] 40mg [facility] ne 04-28 ity of acetonide 20:15: 19:31 [place] (KENALOG) 00 :00 Medical injection Branch 40 mg triamcinolo 2021-04- No [id number] 40mg 40 mg, Univers ne 04-28 Intramuscu ity of acetonide 20:15: 19:31 lar, ONCE, [place] (KENALOG) 00 :00 1 dose, On Medi suleiman injection Fri Branch 40 mg 02/26/22 at 1415, Routine triamcinolo 2021-04 Yes [id number] Apply to [facility] ne 1-11 area(s) 2 ity of acetonide 00:00: (two) [place] 0.1 % 00 times Medical ointment daily. Branch triamcinolo 2021-04 Yes [id number] Apply to [facility] ne 1-11 area(s) 2 ity of acetonide 00:00: (two) [place] 0.1 % 00 times Medical ointment daily. Branch triamcinolo 2021-04 Yes [id number] Apply to [facility] ne 1-11 area(s) 2 ity of acetonide 00:00: (two) [place] 0.1 % 00 times Medical ointment daily. Branch triamcinolo 2021-04 Yes [id number] Apply to [facility] ne 1-11 area(s) 2 ity of acetonide 00:00: (two) [place] 0.1 % 00 times Medical ointment daily. Branch triamcinolo 2021-04 Yes [id number] Apply to [facility] ne 1-11 area(s) 2 ity of acetonide 00:00: (two) [place] 0.1 % 00 times Medical ointment daily. Branch triamcinolo 2021-04 Yes [id number] Apply to [facility] ne 1-11 area(s) 2 ity of acetonide 00:00: (two) [place] 0.1 % 00 times Medical ointment daily. Cesar valdesamadilene 2021-04 Yes [id number] Apply to [facility] ne 1-11 area(s) 2 ity of acetonide 00:00: (two) [place] 0.1 % 00 times Medical ointment daily. Cesar marroquin 2021-04 Yes [id number] Apply to [facility] ne 1-11 area(s) 2 ity of acetonide 00:00: (two) [place] 0.1 % 00 times Medical ointment daily. Cesar valdesamcincatrachito 2021-04 Yes [id number] Apply to [facility] ne 1-11 area(s) 2 ity of acetonide 00:00: (two) [place] 0.1 % 00 times Medical ointment daily. Cesar marroquin 2021-04 Yes [id number] Apply to [place] [facility] 1-11 area(s) 2 ity of acetonide 00:00: (two) [place] 0.1 % 00 times Medical ointment daily. Cesar marroquin 2021-04 Yes [id number] Apply to [place] [facility] 1-11 area(s) 2 ity of acetonide 00:00: (two) [place] 0.1 % 00 times Medical ointment daily. Cesar marroquin 2021-04- No [id number] Apply to [place] [facility] 1-11 30 area(s) 2 ity of acetonide 00:00: 00:00 (two) [place] 0.1 % 00 :00 times Medical ointment daily. Cesar yapcincatrachito 2021-04- No [id number] Apply to [facility] ne 1-11 30 area(s) 2 ity of acetonide 00:00: 00:00 (two) [place] 0.1 % 00 :00 times Medical ointment daily. Cesar valdesamcincatrachito 2021-04- No [id number] Apply to [facility] ne 1-11 30 area(s) 2 ity of acetonide 00:00: 00:00 (two) [place] 0.1 % 00 :00 times Medical ointment daily. Cesar valdesamcincatrachito 2021-04- No [id number] Apply to [place] [facility] 04-28 area(s) 2 ity of acetonide 00:00: 00:00 (two) [place] 0.1 % 00 :00 times Medical ointment daily. Branch predniSONE 2021-04- No [id number] 40mg Take 2 [facility] 20 mg 04-28 tablets by ity of tablet 00:00: 05:59 mouth in [place] 00 :00 the Medical morning Branch for 5 days. predniSONE 2021-04- No [id number] 40mg Take 2 [facility] 20 mg 04-28 tablets by ity of tablet 00:00: 05:59 mouth in [place] 00 :00 the Medical morning Branch for 5 days. metroNIDAZO 2021-04- No [id number] 500mg Take 1 [facility] LE (FLAGYL) 04-26 tablet by it y of 500 mg 00:00: 05:59 mouth [place] tablet 00 :00 every 12 Medical (twelve) Branch hours for 7 days. metroNIDAZO 2021-04- No [id number] 500mg Take 1 [facility] LE (FLAGYL) 04-26 tablet by it y of 500 mg 00:00: 05:59 mouth [place] tablet 00 :00 every 12 Medical (twelve) Branch hours for 7 days. metroNIDAZO 2021-04- No [id number] 500mg Take 1 [facility] LE (FLAGYL) 04-26 tablet by it y of 500 mg 00:00: 05:59 mouth [place] tablet 00 :00 every 12 Medical (twelve) Branch hours for 7 days. fluconazole 2021-04- No [id number] 150mg Take 1 [facility] (DIFLUCAN) 04-26 tablet by ity of 150 mg 00:00: 05:59 mouth [place] tablet 00 :00 every 72 Medical (seventy-t Branch wo) hours for 2 doses. fluconazole 2021-04- No [id number] 150mg Take 1 [facility] (DIFLUCAN) 04-26 tablet by ity of 150 mg 00:00: 05:59 mouth [place] tablet 00 :00 every 72 Medical (seventy-t Branch wo) hours for 2 doses. fluconazole 2021-04- No [id number] 150mg Take 1 [facility] (DIFLUCAN) 1-09 11-14 tablet by ity of 150 mg 00:00: 05:59 mouth [place] tablet 00 :00 every 72 Medical (seventy-t Branch wo) hours for 2 doses. Nitrofurant 2021-04- No [id number] 100mg Take 1 [facility] oin&Nit. 04-24 capsule by ity of Macrocryst 00:00: 05:59 mouth in [place] (MACROBID) 00 :00 the Medical 100 mg morning Branch capsule and 1 capsule in the evening. Take with meals. Do all this for 5 days. Nitrofurant 2021-04- No [id number] 100mg Take 1 Univers oin&Nit. 04-24-13 capsule by ity of Macrocryst 00:00: 05:59 mouth in [place] (MACROBID) 00 :00 the Medical 100 mg morning Branch capsule and 1 capsule in the evening. Take with meals. Do all this for 5 days. Nitrofurant 2021-04- No [id number] 100mg Take 1 Univers oin&Nit. 04-24 capsule by ity of Macrocryst 00:00: 05:59 mouth in [place] (MACROBID) 00 :00 the Medical 100 mg morning Branch capsule and 1 capsule in the evening. Take with meals. Do all this for 5 days. Nitrofurant 2021-04 No [id number] 100mg Take 1 Univers oin&Nit. 04-24 capsule by ity of Macrocryst 00:00: 05:59 mouth in [place] (MACROBID) 00 :00 the Medical 100 mg morning Branch capsule and 1 capsule in the evening. Take with meals. Do all this for 5 days. Nitrofurant 2021-04 No [id number] 100mg Take 1 Univers oin&Nit. 04-24-13 capsule by ity of Macrocryst 00:00: 05:59 mouth in [place] (MACROBID) 00 :00 the Medical 100 mg morning Branch capsule and 1 capsule in the evening. Take with meals. Do all this for 5 days. simethicone No Take by Shaji yeaegr (GAS-X 7-28 10-13 mouth. ity of ORAL) 17:48: 00:00 [place] [...] [place] 32 times Medical daily. Branch FLUoxetine 2-0 Yes 10mg Take 10 mg U nivers 10 mg 6-23 by mouth 3 ity of capsule 16:44: (three) [place] 32 times Medical daily. Branch FLUoxetine 2022-0 Yes 10mg Take 10 mg U nivers 10 mg 6-23 by mouth 3 ity of capsule 16:44: (three) [place] 32 times Medical daily. Branch acetaminoph 2- No [id number] 650mg Take 2 Univers en 6-21 07-13 tablets by ity of (TYLENOL) 00:00: 00:00 mouth [place] 325 mg 00 :00 every 6 Medical tablet (six) Branch hours as needed for Pain (scale 1-3) or Pain (scale 4-6). simethicone 2021-0 2- No [id number] 80mg Take 1 [facility] 80 mg 6-21 07-13 tablet by ity of chewable 00:00: 00:00 mouth [place] tablet 00 :00 after Medical meals and Branch at bedtime. ibuprofen 2021-0 2- No [id number] 600mg Take 1 [facility] 600 mg 6-21 [...] of PFIZER NITA-SUCROSE 00:00:00 [place] Medical VACCINE (GREEEN TOP) Branch SARS-COV-2 COVID-19 2021-10-09 Completed Unive [...] of PFIZER NITA-SUCROSE 00:00:00 [place] Medical VACCINE (GRENEE TOP) Branch SARS-COV-2 COVID-19 2021-09-02 Completed Unive [...] y of Vaccine Quad .5 mL 00:00:00 [place] [facility] 6+ MO Branch TDAP 2018-09-26 Completed University of 00:00:00 [place] [facility] TDAP 2018-09-26 Completed University of 00:00:00 [place] [facility] TDAP 2018-09-26 Completed University of 00:00:00 [place] [facility] TDAP 2018-09-26 Completed University of 00:00:00 [place] [facility] TDAP 2018-09-26 Completed University of 00:00:00 [place] [facility] TDAP 2018-09-26 Completed University of 00:00:00 [place] [facility] TDAP 2018-09-26 Completed University of 00:00:00 [place] [facility] TDAP 2018-09-26 Completed University of 00:00:00 [place] [facility] TDAP 2018-09-26 Completed University of 00:00:00 [place] [facility] TDAP 2018-09-26 Completed University of 00:00:00 [place] [facility] TDAP 2018-09-26 Completed University of 00:00:00 [place] [facility] TDAP 2018-09-26 Completed University of 00:00:00 [place] [facility] TDAP 2018-09-26 Completed University of 00:00:00 [place] [facility] TDAP 2018-09-26 Completed University of 00:00:00 [place] [facility] TDAP 2018-09-26 Completed University of 00:00:00 [place] [facility] TDAP 2018-09-26 Completed University of 00:00:00 [place] [facility] TDAP 2018-09-26 Completed University of 00:00:00 [place] [facility] TDAP 2018-09-26 Completed University of 00:00:00 [place] [facility] TDAP 2018-09-26 Completed University of 00:00:00 [place] [facility] TDAP 2018-09-26 Completed University of 00:00:00 [place] [facility] TDAP 2018-09-26 Completed University of 00:00:00 [place] [facility] TDAP 2018-09-26 Completed University of 00:00:00 [place] [facility] TDAP 2018-09-26 Completed University of 00:00:00 [place] [facility] TDAP 2018-09-26 Completed University of 00:00:00 [place] [facility] TDAP 2018-09-26 Completed University of 00:00:00 [place] [facility] TDAP 2018-09-26 Completed University of 00:00:00 [place] [facility] TDAP 2018-09-26 Completed University of 00:00:00 [place] [facility] TDAP 2018-09-26 Completed University of 00:00:00 [place] [facility] TDAP 2018-09-26 Completed University of 00:00:00 [place] [facility] TDAP 2018-09-26 Completed University of 00:00:00 [place] [facility] TDAP 2018-09-26 Completed University of 00:00:00 [place] [facility] TDAP 2018-09-26 Completed University of 00:00:00 [place] [facility] TDAP 2018-09-26 Completed University of 00:00:00 [place] [facility] TDAP 2018-09-26 Completed University of 00:00:00 [place] [facility] TDAP 2018-09-26 Completed University of 00:00:00 [place] [facility] TDAP 2018-09-26 Completed University of 00:00:00 [place] [facility] TDAP 2018-09-26 Completed University of 00:00:00 [place] [facility] TDAP 2018-09-26 Completed University of 00:00:00 [place] [facility] TDAP 2018-09-26 Completed University of 00:00:00 [place] [facility] TDAP 2018-09-26 Completed University of 00:00:00 [place] [facility] TDAP 2018-09-26 Completed University of 00:00:00 [place] [facility] TDAP 2018-09-26 Completed University of 00:00:00 [place] [facility] TDAP 2018-09-26 Completed University of 00:00:00 [place] [facility] TDAP 2018-09-26 Completed University of 00:00:00 [place] [facility] TDAP 2018-09-26 Completed University of 00:00:00 [place] [facility] TDAP 2018-09-26 Completed University of 00:00:00 [place] [facility] TDAP 2018-09-26 Completed University of 00:00:00 [place] [facility] TDAP 2018-09-26 Completed University of 00:00:00 [place] [facility] TDAP 2018-09-26 Completed University of 00:00:00 [place] [facility] TDAP 2018-09-26 Completed University of 00:00:00 [place] [facility] TDAP 2018-09-26 Completed University of 00:00:00 [place] [facility] TDAP 2018-09-26 Completed University of 00:00:00 [place] [facility] TDAP 2018-09-26 Completed University of 00:00:00 [place] [facility] TDAP 2018-09-26 Completed University of 00:00:00 [place] [facility] TDAP 2018-09-26 Completed University of 00:00:00 [place] [facility] TDAP 2018-09-26 Completed University of 00:00:00 [place] [facility] TDAP 2018-09-26 Completed University of 00:00:00 [place] [facility] TDAP 2018-09-26 Completed University of 00:00:00 [place] [facility] TDAP 2018-09-26 Completed University of 00:00:00 [facility] Influenza Virus 2018-04-21 Completed Universit y of Vaccine Quad .5 mL 00:00:00 [place] [facility] IM 6+ MO Branch Influenza Virus [...] y of Vaccine Quad .5 mL 00:00:00 [place] [facility] IM 6+ MO Branch Influenza Virus 2018-04-21 Completed Universit y of Vaccine Quad .5 mL 00:00:00 [place] [facility] 6+ MO Branch Influenza Virus 2018-04-21 Completed Universit y of Vaccine Quad .5 mL 00:00:00 [place] [facility] IM 6+ MO Branch Influenza Virus 2018-04-21 Completed Universit y of Vaccine Quad .5 mL 00:00:00 [place] [facility] IM 6+ MO Branch Influenza Virus 2018-04-21 Completed Universit y of Vaccine Quad .5 mL 00:00:00 [place] [facility] 6+ MO Branch Influenza Virus 2018-04-21 Completed Universit y of Vaccine Quad .5 mL 00:00:00 [place] [facility] IM 6+ MO Branch Influenza Virus [...] y of Vaccine Quad .5 mL 00:00:00 [place] [facility] IM 6+ MO Branch Influenza Virus 2018-04-21 Completed Universit y of Vaccine Quad .5 mL 00:00:00 [place] [facility] IM 6+ MO Branch Influenza Virus 2018-04-21 Completed Universit y of Vaccine Quad .5 mL 00:00:00 [place] [facility] IM 6+ MO Branch Influenza Virus 2018-04-21 Completed Universit y of Vaccine Quad .5 mL 00:00:00 [place] [facility] IM 6+ MO Branch Influenza Virus 2018-04-21 Completed Universit y of Vaccine Quad .5 mL 00:00:00 [place] [facility] IM 6+ MO Branch Influenza Virus [...] y of Vaccine Quad .5 mL 00:00:00 [place] [facility] 6+ MO Branch Influenza Virus 2018-04-21 Completed Universit y of Vaccine Quad .5 mL 00:00:00 [place] [facility] IM 6+ MO Branch Influenza Virus 2018-04-21 Completed Universit y of Vaccine Quad .5 mL 00:00:00 [place] [facility] 6+ MO Branch Influenza Virus 2018-04-21 Completed Universit y of Vaccine Quad .5 mL 00:00:00 [place] [facility] IM 6+ MO Branch Influenza Virus 2018-04-21 Completed Universit y of Vaccine Quad .5 mL 00:00:00 [place] [facility] 6+ MO Branch Influenza Virus 2018-04-21 Completed Universit y of Vaccine Quad .5 mL 00:00:00 [place] [facility] 6+ MO Branch Influenza Virus 2018-04-21 Completed Universit y of Vaccine Quad .5 mL 00:00:00 [place] [facility] IM 6+ MO Branch Influenza Virus 2018-04-21 Completed Universit y of Vaccine Quad .5 mL 00:00:00 [place] [facility] IM 6+ MO Branch Influenza Virus 2018-04-21 Completed Universit y of Vaccine Quad .5 mL 00:00:00 [place] [facility] IM 6+ MO Branch Influenza Virus 2018-04-21 Completed Universit y of Vaccine Quad .5 mL 00:00:00 [place] [facility] 6+ MO Branch Influenza Virus 2018-04-21 Completed Universit y of Vaccine Quad .5 mL 00:00:00 [place] [facility] IM 6+ MO Branch Influenza Virus 2018-04-21 Completed Universit y of Vaccine Quad .5 mL 00:00:00 [facility] 6+ MO Branch HPV9 2016-02-13 Completed University of 00:00:00 [place] [facility] HPV9 2016-02-13 Completed University of 00:00:00 [place] [facility] HPV9 2016-02-13 Completed University of 00:00:00 [place] [facility] HPV9 2016-02-13 Completed University of 00:00:00 [place] [facility] HPV9 2016-02-13 Completed University of 00:00:00 [place] [facility] HPV9 2016-02-13 Completed University of 00:00:00 [place] [facility] HPV9 2016-02-13 Completed University of 00:00:00 [place] [facility] HPV9 2016-02-13 Completed University of 00:00:00 [place] [facility] HPV9 2016-02-13 Completed University of 00:00:00 [place] [facility] HPV9 2016-02-13 Completed University of 00:00:00 [place] [facility] HPV9 2016-02-13 Completed University of 00:00:00 [place] [facility] HPV9 2016-02-13 Completed University of 00:00:00 [place] [facility] HPV9 2016-02-13 Completed University of 00:00:00 [place] [facility] HPV9 2016-02-13 Completed University of 00:00:00 [place] [facility] HPV9 2016-02-13 Completed University of 00:00:00 [place] [facility] HPV9 2016-02-13 Completed University of 00:00:00 [place] [facility] HPV9 2016-02-13 Completed University of 00:00:00 [place] [facility] HPV9 2016-02-13 Completed University of 00:00:00 [place] [facility] HPV9 2016-02-13 Completed University of 00:00:00 [place] [facility] HPV9 2016-02-13 Completed University of 00:00:00 [place] [facility] HPV9 2016-02-13 Completed University of 00:00:00 [place] [facility] HPV9 2016-02-13 Completed University of 00:00:00 [place] [facility] HPV9 2016-02-13 Completed University of 00:00:00 [place] [facility] HPV9 2016-02-13 Completed University of 00:00:00 [place] [facility] HPV9 2016-02-13 Completed University of 00:00:00 [place] [facility] HPV9 2016-02-13 Completed University of 00:00:00 [place] [facility] HPV9 2016-02-13 Completed University of 00:00:00 [place] [facility] HPV9 2016-02-13 Completed University of 00:00:00 [place] [facility] HPV9 2016-02-13 Completed University of 00:00:00 [place] [facility] HPV9 2016-02-13 Completed University of 00:00:00 [place] [facility] HPV9 2016-02-13 Completed University of 00:00:00 [place] [facility] HPV9 2016-02-13 Completed University of 00:00:00 [place] [facility] HPV9 2016-02-13 Completed University of 00:00:00 [place] [facility] HPV9 2016-02-13 Completed University of 00:00:00 [place] [facility] HPV9 2016-02-13 Completed University of 00:00:00 [place] [facility] HPV9 2016-02-13 Completed University of 00:00:00 [place] [facility] HPV9 2016-02-13 Completed University of 00:00:00 [place] [facility] HPV9 2016-02-13 Completed University of 00:00:00 [place] [facility] HPV9 2016-02-13 Completed [facility] 00:00:00 [facility] HPV9 2016-02-13 Completed [facility] 00:00:00 [facility] HPV9 2016-02-13 Completed [facility] 00:00:00 [facility] HPV9 2016-02-13 Completed [facility] 00:00:00 [facility] HPV9 2016-02-13 Completed [facility] 00:00:00 [facility] HPV9 2016-02-13 Completed [facility] 00:00:00 [facility] HPV9 2016-02-13 Completed [facility] 00:00:00 [facility] HPV9 2016-02-13 Completed [facility] 00:00:00 [facility] HPV9 2016-02-13 Completed [facility] 00:00:00 [facility] HPV9 2016-02-13 Completed [facility] 00:00:00 [facility] HPV9 2016-02-13 Completed [facility] 00:00:00 [facility] HPV9 2016-02-13 Completed [facility] 00:00:00 [facility] HPV9 2016-02-13 Completed [facility] 00:00:00 [facility] HPV9 2016-02-13 Completed [facility] 00:00:00 [facility] HPV9 2016-02-13 Completed [facility] 00:00:00 [facility] HPV9 2016-02-13 Completed [facility] 00:00:00 [facility] HPV9 2016-02-13 Completed [facility] 00:00:00 [facility] HPV9 2016-02-13 Completed [facility] 00:00:00 [facility] HPV9 2016-02-13 Completed [facility] 00:00:00 [facility] HPV9 2016-02-13 Completed [facility] 00:00:00 [facility] HPV9 2016-02-13 Completed [facility] 00[facility]00:00 [facility] HPV 2015-01-17 Completed [facility] 00:00:00 [facility] Meningococcal 2015-01-17 Completed [facility] Vaccine 00:00:00 [facility] HPV 2015-01-17 Completed [facility] 00:00:00 [facility] Meningococcal 2015-01-17 Completed [facility] Vaccine 00:00:00 [facility] HPV 2015-01-17 Completed [facility] 00:00:00 [facility] Meningococcal 2015-01-17 Completed [facility] Vaccine 00:00:00 [facility] HPV 2015-01-17 Completed [facility] 00:00:00 [facility] Meningococcal 2015-01-17 Completed [facility] Vaccine 00:00:00 [facility] HPV 2015-01-17 Completed [facility] 00:00:00 [facility] Meningococcal 2015-01-17 Completed [facility] Vaccine 00:00:00 [facility] HPV 2015-01-17 Completed [facility] 00:00:00 [facility] Meningococcal 2015-01-17 Completed [facility] Vaccine 00:00:00 [facility] HPV 2015-01-17 Completed [facility] 00:00:00 [facility] Meningococcal 2015-01-17 Completed [facility] Vaccine 00:00:00 [facility] HPV 2015-01-17 Completed [facility] 00:00:00 [facility] Meningococcal 2015-01-17 Completed [facility] Vaccine 00:00:00 [facility] HPV 2015-01-17 Completed [facility] 00:00:00 [facility] Meningococcal 2015-01-17 Completed [facility] Vaccine 00:00:00 [facility] HPV 2015-01-17 Completed [facility] 00:00:00 [facility] Meningococcal 2015-01-17 Completed [facility] Vaccine 00:00:00 [facility] HPV 2015-01-17 Completed [facility] 00:00:00 [facility] Meningococcal 2015-01-17 Completed [facility] Vaccine 00:00:00 [facility] HPV 2015-01-17 Completed [facility] 00:00:00 [facility] Meningococcal 2015-01-17 Completed [facility] Vaccine 00:00:00 [facility] HPV 2015-01-17 Completed [facility] 00:00:00 [facility] Meningococcal 2015-01-17 Completed [facility] Vaccine 00:00:00 [facility] HPV 2015-01-17 Completed [facility] 00:00:00 [facility] Meningococcal 2015-01-17 Completed [facility] Vaccine 00:00:00 [facility] HPV 2015-01-17 Completed [facility] 00:00:00 [facility] Meningococcal 2015-01-17 Completed [facility] Vaccine 00:00:00 [facility] HPV 2015-01-17 Completed [facility] 00:00:00 [facility] Meningococcal 2015-01-17 Completed [facility] Vaccine 00:00:00 [facility] HPV 2015-01-17 Completed [facility] 00:00:00 [facility] Meningococcal 2015-01-17 Completed [facility] Vaccine 00:00:00 [facility] HPV 2015-01-17 Completed [facility] 00:00:00 [facility] Meningococcal 2015-01-17 Completed [facility] Vaccine 00:00:00 [facility] HPV 2015-01-17 Completed [facility] 00:00:00 [facility] Meningococcal 2015-01-17 Completed [facility] Vaccine 00:00:00 [facility] HPV 2015-01-17 Completed [facility] 00:00:00 [facility] Meningococcal 2015-01-17 Completed [facility] Vaccine 00:00:00 [facility] HPV 2015-01-17 Completed [facility] 00:00:00 [facility] Meningococcal 2015-01-17 Completed [facility] Vaccine 00:00:00 [facility] HPV 2015-01-17 Completed [facility] 00:00:00 [facility] Meningococcal 2015-01-17 Completed [facility] Vaccine 00:00:00 [facility] HPV 2015-01-17 Completed [facility] 00:00:00 [facility] Meningococcal 2015-01-17 Completed [facility] Vaccine 00:00:00 [facility] HPV 2015-01-17 Completed [facility] 00:00:00 [facility] Meningococcal 2015-01-17 Completed [facility] Vaccine 00:00:00 [facility] HPV 2015-01-17 Completed [facility] 00:00:00 [facility] Meningococcal 2015-01-17 Completed [facility] Vaccine 00:00:00 [facility] HPV 2015-01-17 Completed [facility] 00:00:00 [facility] Meningococcal 2015-01-17 Completed [facility] Vaccine 00:00:00 [facility] HPV 2015-01-17 Completed [facility] 00:00:00 [facility] Meningococcal 2015-01-17 Completed [facility] Vaccine 00:00:00 [facility] HPV 2015-01-17 Completed [facility] 00:00:00 [facility] Meningococcal 2015-01-17 Completed [facility] Vaccine 00:00:00 [facility] HPV 2015-01-17 Completed [facility] 00:00:00 [facility] Meningococcal 2015-01-17 Completed [facility] Vaccine 00:00:00 [facility] HPV 2015-01-17 Completed [facility] 00:00:00 [facility] Meningococcal 2015-01-17 Completed [facility] Vaccine 00:00:00 [facility] HPV 2015-01-17 Completed [facility] 00:00:00 [facility] Meningococcal 2015-01-17 Completed [facility] Vaccine 00:00:00 [facility] HPV 2015-01-17 Completed [facility] 00:00:00 [facility] Meningococcal 2015-01-17 Completed [facility] Vaccine 00:00:00 [facility] HPV 2015-01-17 Completed [facility] 00:00:00 [facility] Meningococcal 2015-01-17 Completed [facility] Vaccine 00:00:00 [facility] HPV 2015-01-17 Completed [facility] 00:00:00 [facility] Meningococcal 2015-01-17 Completed [facility] Vaccine 00:00:00 [facility] HPV 2015-01-17 Completed [facility] 00:00:00 [facility] Meningococcal 2015-01-17 Completed [facility] Vaccine 00:00:00 [facility] HPV 2015-01-17 Completed [facility] 00:00:00 [facility] Meningococcal 2015-01-17 Completed [facility] Vaccine 00:00:00 [facility] HPV 2015-01-17 Completed [facility] 00:00:00 [facility] Meningococcal 2015-01-17 Completed [facility] Vaccine 00:00:00 [facility] HPV 2015-01-17 Completed [facility] 00:00:00 [facility] Meningococcal 2015-01-17 Completed [facility] Vaccine 00:00:00 [facility] HPV 2015-01-17 Completed [facility] 00:00:00 [facility] Meningococcal 2015-01-17 Completed [facility] Vaccine 00:00:00 [facility] HPV 2015-01-17 Completed [facility] 00:00:00 [facility] Meningococcal 2015-01-17 Completed [facility] Vaccine 00:00:00 [facility] HPV 2015-01-17 Completed [facility] 00:00:00 [facility] Meningococcal 2015-01-17 Completed [facility] Vaccine 00:00:00 [facility] HPV 2015-01-17 Completed [facility] 00:00:00 [facility] Meningococcal 2015-01-17 Completed [facility] Vaccine 00:00:00 [facility] HPV 2015-01-17 Completed [facility] 00:00:00 [facility] Meningococcal 2015-01-17 Completed [facility] Vaccine 00:00:00 [facility] HPV 2015-01-17 Completed [facility] 00:00:00 [facility] Meningococcal 2015-01-17 Completed [facility] Vaccine 00:00:00 [facility] HPV 2015-01-17 Completed [facility] 00:00:00 [facility] Meningococcal 2015-01-17 Completed [facility] Vaccine 00:00:00 [facility] HPV 2015-01-17 Completed [facility] 00:00:00 [facility] Meningococcal 2015-01-17 Completed [facility] Vaccine 00:00:00 [facility] HPV 2015-01-17 Completed [facility] 00:00:00 [facility] Meningococcal 2015-01-17 Completed [facility] Vaccine 00:00:00 [facility] HPV 2015-01-17 Completed [facility] 00:00:00 [facility] Meningococcal 2015-01-17 Completed [facility] Vaccine 00:00:00 [facility] HPV 2015-01-17 Completed [facility] 00:00:00 [facility] Meningococcal 2015-01-17 Completed [facility] Vaccine 00:00:00 [facility] HPV 2015-01-17 Completed [facility] 00:00:00 [facility] Meningococcal 2015-01-17 Completed [facility] Vaccine 00:00:00 [facility] HPV 2015-01-17 Completed [facility] 00:00:00 [facility] Meningococcal 2015-01-17 Completed [facility] Vaccine 00:00:00 [facility] HPV 2015-01-17 Completed [facility] 00:00:00 [facility] Meningococcal 2015-01-17 Completed [facility] Vaccine 00:00:00 [facility] HPV 2015-01-17 Completed [facility] 00:00:00 [facility] Meningococcal 2015-01-17 Completed [facility] Vaccine 00:00:00 [facility] HPV 2015-01-17 Completed [facility] 00:00:00 [facility] Meningococcal 2015-01-17 Completed [facility] Vaccine 00:00:00 [facility] HPV 2015-01-17 Completed [facility] 00:00:00 [facility] Meningococcal 2015-01-17 Completed [facility] Vaccine 00:00:00 [facility] HPV 2015-01-17 Completed [facility] 00:00:00 [facility] Meningococcal 2015-01-17 Completed [facility] Vaccine 00:00:00 [facility] HPV 2015-01-17 Completed [facility] 00:00:00 [facility] Meningococcal 2015-01-17 Completed [facility] Vaccine 00:00:00 [facility] HPV 2015-01-17 Completed [facility] 00:00:00 [facility] Meningococcal 2015-01-17 Completed [facility] Vaccine 00:00:00 [facility] HPV 2015-01-17 Completed [facility] 00:00:00 [facility] Meningococcal 2015-01-17 Completed [facility] Vaccine 00:00:00 [facility] Varicella 2011-03-01 Completed [facility] [...] [facility] HPV 2009-11-17 Completed [facility] 00:00:00 [facility] Meningococcal 2009-11-17 Completed [facility] Vaccine 00:00:00 [facility] TDAP 2009-11-17 Completed [facility] 00:00:00 [facility] HPV 2009-11-17 Completed [facility] 00:00:00 [facility] Meningococcal 2009-11-17 Completed [facility] Vaccine 00:00:00 [facility] TDAP 2009-11-17 Completed [facility] 00:00:00 [facility] HPV 2009-11-17 Completed [facility] 00:00:00 [facility] Meningococcal 2009-11-17 Completed [facility] Vaccine 00:00:00 [facility] TDAP 2009-11-17 Completed [facility] 00:00:00 [facility] HPV 2009-11-17 Completed [facility] 00:00:00 [facility] Meningococcal 2009-11-17 Completed [facility] Vaccine 00:00:00 [facility] TDAP 2009-11-17 Completed [facility] 00:00:00 [facility] HPV 2009-11-17 Completed [facility] 00:00:00 [facility] Meningococcal 2009-11-17 Completed [facility] Vaccine 00:00:00 [facility] TDAP 2009-11-17 Completed [facility] 00:00:00 [facility] HPV 2009-11-17 Completed [facility] 00:00:00 [facility] Meningococcal 2009-11-17 Completed [facility] Vaccine 00:00:00 [facility] TDAP 2009-11-17 Completed [facility] 00:00:00 [facility] HPV 2009-11-17 Completed [facility] 00:00:00 [facility] Meningococcal 2009-11-17 Completed [facility] Vaccine 00:00:00 [facility] TDAP 2009-11-17 Completed [facility] 00:00:00 [facility] HPV 2009-11-17 Completed [facility] 00:00:00 [facility] Meningococcal 2009-11-17 Completed [facility] Vaccine 00:00:00 [facility] TDAP 2009-11-17 Completed [facility] 00:00:00 [facility] HPV 2009-11-17 Completed [facility] 00:00:00 [facility] Meningococcal 2009-11-17 Completed [facility] Vaccine 00:00:00 [facility] TDAP 2009-11-17 Completed [facility] 00:00:00 [facility] HPV 2009-11-17 Completed [facility] 00:00:00 [facility] Meningococcal 2009-11-17 Completed [facility] Vaccine 00:00:00 [facility] TDAP 2009-11-17 Completed [facility] 00:00:00 [facility] HPV 2009-11-17 Completed [facility] 00:00:00 [facility] Meningococcal 2009-11-17 Completed [facility] Vaccine 00:00:00 [facility] TDAP 2009-11-17 Completed [facility] 00:00:00 [facility] HPV 2009-11-17 Completed [facility] 00:00:00 [facility] Meningococcal 2009-11-17 Completed [facility] Vaccine 00:00:00 [facility] TDAP 2009-11-17 Completed [facility] 00:00:00 [facility] HPV 2009-11-17 Completed [facility] 00:00:00 [facility] Meningococcal 2009-11-17 Completed [facility] Vaccine 00:00:00 [facility] TDAP 2009-11-17 Completed [facility] 00:00:00 [facility] HPV 2009-11-17 Completed [facility] 00:00:00 [facility] Meningococcal 2009-11-17 Completed [facility] Vaccine 00:00:00 [facility] TDAP 2009-11-17 Completed [facility] 00:00:00 [facility] HPV 2009-11-17 Completed [facility] 00:00:00 [facility] Meningococcal 2009-11-17 Completed [facility] Vaccine 00:00:00 [facility] TDAP 2009-11-17 Completed [facility] 00:00:00 [facility] HPV 2009-11-17 Completed [facility] 00:00:00 [facility] Meningococcal 2009-11-17 Completed [facility] Vaccine 00:00:00 [facility] TDAP 2009-11-17 Completed [facility] 00:00:00 [facility] HPV 2009-11-17 Completed [facility] 00:00:00 [facility] Meningococcal 2009-11-17 Completed [facility] Vaccine 00:00:00 [facility] TDAP 2009-11-17 Completed [facility] 00:00:00 [facility] HPV 2009-11-17 Completed [facility] 00:00:00 [facility] Meningococcal 2009-11-17 Completed [facility] Vaccine 00:00:00 [facility] TDAP 2009-11-17 Completed [facility] 00:00:00 [facility] HPV 2009-11-17 Completed [facility] 00:00:00 [facility] Meningococcal 2009-11-17 Completed [facility] Vaccine 00:00:00 [facility] TDAP 2009-11-17 Completed [facility] 00:00:00 [facility] HPV 2009-11-17 Completed [facility] 00:00:00 [facility] Meningococcal 2009-11-17 Completed [facility] Vaccine 00:00:00 [facility] TDAP 2009-11-17 Completed [facility] 00:00:00 [facility] HPV 2009-11-17 Completed [facility] 00:00:00 [facility] Meningococcal 2009-11-17 Completed [facility] Vaccine 00:00:00 [facility] TDAP 2009-11-17 Completed [facility] 00:00:00 [facility] HPV 2009-11-17 Completed [facility] 00:00:00 [facility] Meningococcal 2009-11-17 Completed [facility] Vaccine 00:00:00 [facility] TDAP 2009-11-17 Completed [facility] 00:00:00 [facility] HPV 2009-11-17 Completed [facility] 00[facility]00:00 [facility] Meningococcal 2009-11-17 Completed [facility] Vaccine 00:00:00 [facility] TDAP 2009-11-17 Completed [facility] 00:00:00 [facility] HPV 2009-11-17 Completed [facility] 00:00:00 [facility] Meningococcal 2009-11-17 Completed [facility] Vaccine 00:00:00 [facility] TDAP 2009-11-17 Completed [facility] 00:00:00 [facility] HPV 2009-11-17 Completed [facility] 00:00:00 [facility] Meningococcal 2009-11-17 Completed [facility] Vaccine 00:00:00 [facility] TDAP 2009-11-17 Completed [facility] 00:00:00 [facility] HPV 2009-11-17 Completed [facility] 00:00:00 [facility] Meningococcal 2009-11-17 Completed [facility] Vaccine 00:00:00 [facility] TDAP 2009-11-17 Completed [facility] 00:00:00 [facility] HPV 2009-11-17 Completed [facility] 00:00:00 [facility] Meningococcal 2009-11-17 Completed [facility] Vaccine 00:00:00 [facility] TDAP 2009-11-17 Completed [facility] 00:00:00 [facility] HPV 2009-11-17 Completed [facility] 00:00:00 [facility] Meningococcal 2009-11-17 Completed [facility] Vaccine 00:00:00 [facility] TDAP 2009-11-17 Completed [facility] 00:00:00 [facility] HPV 2009-11-17 Completed [facility] 00:00:00 [facility] Meningococcal 2009-11-17 Completed [facility] Vaccine 00:00:00 [facility] TDAP 2009-11-17 Completed [facility] 00[facility]00:00 [facility] HPV 2009-11-17 Completed [facility] 00:00:00 [facility] Meningococcal 2009-11-17 Completed [facility] Vaccine 00:00:00 [facility] TDAP 2009-11-17 Completed [facility] 00:00:00 [facility] HPV 2009-11-17 Completed [facility] 00:00:00 [facility] Meningococcal 2009-11-17 Completed [facility] Vaccine 00:00:00 [facility] TDAP 2009-11-17 Completed [facility] 00:00:00 [facility] HPV 2009-11-17 Completed [facility] 00[facility]00:00 [facility] Meningococcal 2009-11-17 Completed [facility] Vaccine 00:00:00 [facility] TDAP 2009-11-17 Completed [facility] 00:00:00 [facility] HPV 2009-11-17 Completed [facility] 00:00:00 [facility] Meningococcal 2009-11-17 Completed [facility] Vaccine 00:00:00 [facility] TDAP 2009-11-17 Completed [facility] 00:00:00 [facility] HPV 2009-11-17 Completed [facility] 00[facility]00:00 [facility] Meningococcal 2009-11-17 Completed [facility] Vaccine 00:00:00 [facility] TDAP 2009-11-17 Completed [facility] 00:00:00 [facility] HPV 2009-11-17 Completed [facility] 00:00:00 [facility] Meningococcal 2009-11-17 Completed [facility] Vaccine 00:00:00 [facility] TDAP 2009-11-17 Completed [facility] 00:00:00 [facility] HPV 2009-11-17 Completed [facility] 00:00:00 [facility] Meningococcal 2009-11-17 Completed [facility] Vaccine 00:00:00 [facility] TDAP 2009-11-17 Completed [facility] 00[facility]00:00 [facility] HPV 2009-11-17 Completed [facility] 00:00:00 [facility] Meningococcal 2009-11-17 Completed [facility] Vaccine 00:00:00 [facility] TDAP 2009-11-17 Completed [facility] 00:00:00 [facility] HPV 2009-11-17 Completed [facility] 00:00:00 [facility] Meningococcal 2009-11-17 Completed [facility] Vaccine 00:00:00 [facility] TDAP 2009-11-17 Completed [facility] 00:00:00 [facility] HPV 2009-11-17 Completed [facility] 00:00:00 [facility] Meningococcal 2009-11-17 Completed [facility] Vaccine 00:00:00 [facility] TDAP 2009-11-17 Completed [facility] 00:00:00 [facility] HPV 2009-11-17 Completed [facility] 00:00:00 [facility] Meningococcal 2009-11-17 Completed [facility] Vaccine 00:00:00 [facility] TDAP 2009-11-17 Completed [facility] 00:00:00 [facility] HPV 2009-11-17 Completed [facility] 00:00:00 [facility] Meningococcal 2009-11-17 Completed [facility] Vaccine 00:00:00 [facility] TDAP 2009-11-17 Completed [facility] 00:00:00 [facility] HPV 2009-11-17 Completed [facility] 00:00:00 [facility] Meningococcal 2009-11-17 Completed [facility] Vaccine 00:00:00 [facility] TDAP 2009-11-17 Completed [facility] 00:00:00 [facility] HPV 2009-11-17 Completed [facility] 00:00:00 [facility] Meningococcal 2009-11-17 Completed [facility] Vaccine 00:00:00 [facility] TDAP 2009-11-17 Completed [facility] 00:00:00 [facility] HPV 2009-11-17 Completed [facility] 00:00:00 [facility] Meningococcal 2009-11-17 Completed [facility] Vaccine 00:00:00 [facility] TDAP 2009-11-17 Completed [facility] 00:00:00 [facility] HPV 2009-11-17 Completed [facility] 00:00:00 [facility] Meningococcal 2009-11-17 Completed [facility] Vaccine 00:00:00 [facility] TDAP 2009-11-17 Completed [facility] 00:00:00 [facility] HPV 2009-11-17 Completed [facility] 00:00:00 [facility] Meningococcal 2009-11-17 Completed [facility] Vaccine 00:00:00 [facility] TDAP 2009-11-17 Completed [facility] 00:00:00 [facility] HPV 2009-11-17 Completed [facility] 00:00:00 [facility] Meningococcal 2009-11-17 Completed [facility] Vaccine 00:00:00 [facility] TDAP 2009-11-17 Completed [facility] 00:00:00 [facility] HPV 2009-11-17 Completed [facility] 00:00:00 [facility] Meningococcal 2009-11-17 Completed [facility] Vaccine 00:00:00 [facility] TDAP 2009-11-17 Completed [facility] 00:00:00 [facility] HPV 2009-11-17 Completed [facility] 00:00:00 [facility] Meningococcal 2009-11-17 Completed [facility] Vaccine 00:00:00 [facility] TDAP 2009-11-17 Completed [facility] 00:00:00 [facility] HPV 2009-11-17 Completed [facility] 00:00:00 [facility] Meningococcal 2009-11-17 Completed [facility] Vaccine 00:00:00 [facility] TDAP 2009-11-17 Completed [facility] 00:00:00 [facility] HPV 2009-11-17 Completed [facility] 00:00:00 [facility] Meningococcal 2009-11-17 Completed [facility] Vaccine 00:00:00 [facility] TDAP 2009-11-17 Completed [facility] 00:00:00 [facility] HPV 2009-11-17 Completed [facility] 00:00:00 [facility] Meningococcal 2009-11-17 Completed [facility] Vaccine 00:00:00 [facility] TDAP 2009-11-17 Completed [facility] 00:00:00 [facility] HPV 2009-11-17 Completed [facility] 00:00:00 [facility] Meningococcal 2009-11-17 Completed [facility] Vaccine 00:00:00 [facility] TDAP 2009-11-17 Completed [facility] 00:00:00 [facility] HPV 2009-11-17 Completed [facility] 00:00:00 [facility] Meningococcal 2009-11-17 Completed [facility] Vaccine 00:00:00 [facility] TDAP 2009-11-17 Completed [facility] 00:00:00 [facility] HPV 2009-11-17 Completed [facility] 00:00:00 [facility] Meningococcal 2009-11-17 Completed [facility] Vaccine 00:00:00 [facility] TDAP 2009-11-17 Completed [facility] 00:00:00 [facility] HPV 2009-11-17 Completed [facility] 00:00:00 [facility] Meningococcal 2009-11-17 Completed [facility] Vaccine 00:00:00 [facility] TDAP 2009-11-17 Completed [facility] 00:00:00 [facility] HPV 2009-11-17 Completed [facility] 00:00:00 [facility] Meningococcal 2009-11-17 Completed [facility] Vaccine 00:00:00 [facility] TDAP 2009-11-17 Completed [facility] 00:00:00 [facility] HPV 2009-11-17 Completed [facility] 00:00:00 [facility] Meningococcal 2009-11-17 Completed [facility] Vaccine 00:00:00 [facility] TDAP 2009-11-17 Completed [facility] 00:00:00 [facility] HPV 2009-11-17 Completed [facility] 00:00:00 [facility] Meningococcal 2009-11-17 Completed [facility] Vaccine 00:00:00 [facility] TDAP 2009-11-17 Completed [facility] 00:00:00 [facility] DTAP 2002-04-05 Completed [facility] 00:00:00 [facility] MMR 2002-04-05 Completed [facility] 00:00:00 [facility] Polio (IPV/OPV) 2002-04-05 Completed [facility] 00:00:00 [facility] DTAP 2002-04-05 Completed [facility] 00:00:00 [facility] MMR 2002-04-05 Completed [facility] 00:00:00 [facility] Polio (IPV/OPV) 2002-04-05 Completed [facility] 00:00:00 [facility] DTAP 2002-04-05 Completed [facility] 00:00:00 [facility] MMR 2002-04-05 Completed [facility] 00:00:00 [facility] Polio (IPV/OPV) 2002-04-05 Completed [facility] 00:00:00 [facility] DTAP 2002-04-05 Completed [facility] 00:00:00 [facility] MMR 2002-04-05 Completed [facility] 00:00:00 [facility] Polio (IPV/OPV) 2002-04-05 Completed [facility] 00:00:00 [facility] DTAP 2002-04-05 Completed [facility] 00:00:00 [facility] MMR 2002-04-05 Completed [facility] 00:00:00 [facility] Polio (IPV/OPV) 2002-04-05 Completed [facility] 00:00:00 [facility] DTAP 2002-04-05 Completed [facility] 00:00:00 [facility] MMR 2002-04-05 Completed [facility] 00:00:00 [facility] Polio (IPV/OPV) 2002-04-05 Completed [facility] 00:00:00 [facility] DTAP 2002-04-05 Completed [facility] 00:00:00 [facility] MMR 2002-04-05 Completed [facility] 00:00:00 [facility] Polio (IPV/OPV) 2002-04-05 Completed [facility] 00:00:00 [facility] DTAP 2002-04-05 Completed [facility] 00:00:00 [facility] MMR 2002-04-05 Completed [facility] 00:00:00 [facility] Polio (IPV/OPV) 2002-04-05 Completed [facility] 00:00:00 [facility] DTAP 2002-04-05 Completed [facility] 00:00:00 [facility] MMR 2002-04-05 Completed [facility] 00:00:00 [facility] Polio (IPV/OPV) 2002-04-05 Completed [facility] 00:00:00 [facility] DTAP 2002-04-05 Completed [facility] 00:00:00 [facility] MMR 2002-04-05 Completed [facility] 00:00:00 [facility] Polio (IPV/OPV) 2002-04-05 Completed [facility] 00:00:00 [facility] DTAP 2002-04-05 Completed [facility] 00:00:00 [facility] MMR 2002-04-05 Completed [facility] 00:00:00 [facility] Polio (IPV/OPV) 2002-04-05 Completed [facility] 00:00:00 [facility] DTAP 2002-04-05 Completed [facility] 00:00:00 [facility] MMR 2002-04-05 Completed [facility] 00:00:00 [facility] Polio (IPV/OPV) 2002-04-05 Completed [facility] 00:00:00 [facility] DTAP 2002-04-05 Completed [facility] 00:00:00 [facility] MMR 2002-04-05 Completed [facility] 00:00:00 [facility] Polio (IPV/OPV) 2002-04-05 Completed [facility] 00:00:00 [facility] DTAP 2002-04-05 Completed [facility] 00:00:00 [facility] MMR 2002-04-05 Completed [facility] 00:00:00 [facility] Polio (IPV/OPV) 2002-04-05 Completed [facility] 00:00:00 [facility] DTAP 2002-04-05 Completed [facility] 00:00:00 [facility] MMR 2002-04-05 Completed [facility] 00:00:00 [facility] Polio (IPV/OPV) 2002-04-05 Completed [facility] 00:00:00 [facility] DTAP 2002-04-05 Completed [facility] 00:00:00 [facility] MMR 2002-04-05 Completed [facility] 00:00:00 [facility] Polio (IPV/OPV) 2002-04-05 Completed [facility] 00:00:00 [facility] DTAP 2002-04-05 Completed [facility] 00:00:00 [facility] MMR 2002-04-05 Completed [facility] 00:00:00 [facility] Polio (IPV/OPV) 2002-04-05 Completed [facility] 00:00:00 [facility] DTAP 2002-04-05 Completed [facility] 00:00:00 [facility] MMR 2002-04-05 Completed [facility] 00:00:00 [facility] Polio (IPV/OPV) 2002-04-05 Completed [facility] 00:00:00 [facility] DTAP 2002-04-05 Completed [facility] 00:00:00 [facility] MMR 2002-04-05 Completed [facility] 00:00:00 [facility] Polio (IPV/OPV) 2002-04-05 Completed [facility] 00:00:00 [facility] DTAP 2002-04-05 Completed [facility] 00:00:00 [facility] MMR 2002-04-05 Completed [facility] 00:00:00 [facility] Polio (IPV/OPV) 2002-04-05 Completed [facility] 00:00:00 [facility] DTAP 2002-04-05 Completed [facility] 00:00:00 [facility] MMR 2002-04-05 Completed [facility] 00:00:00 [facility] Polio (IPV/OPV) 2002-04-05 Completed [facility] 00:00:00 [facility] DTAP 2002-04-05 Completed [facility] 00:00:00 [facility] MMR 2002-04-05 Completed [facility] 00:00:00 [facility] Polio (IPV/OPV) 2002-04-05 Completed [facility] 00:00:00 [facility] DTAP 2002-04-05 Completed [facility] 00:00:00 [facility] MMR 2002-04-05 Completed [facility] 00:00:00 [facility] Polio (IPV/OPV) 2002-04-05 Completed [facility] 00:00:00 [facility] DTAP 2002-04-05 Completed [facility] 00:00:00 [facility] MMR 2002-04-05 Completed [facility] 00:00:00 [facility] Polio (IPV/OPV) 2002-04-05 Completed [facility] 00:00:00 [facility] DTAP 2002-04-05 Completed [facility] 00:00:00 [facility] MMR 2002-04-05 Completed [facility] 00:00:00 [facility] Polio (IPV/OPV) 2002-04-05 Completed [facility] 00:00:00 [facility] DTAP 2002-04-05 Completed [facility] 00:00:00 [facility] MMR 2002-04-05 Completed [facility] 00:00:00 [facility] Polio (IPV/OPV) 2002-04-05 Completed [facility] 00:00:00 [facility] DTAP 2002-04-05 Completed [facility] 00:00:00 [facility] MMR 2002-04-05 Completed [facility] 00:00:00 [facility] Polio (IPV/OPV) 2002-04-05 Completed [facility] 00:00:00 [facility] DTAP 2002-04-05 Completed [facility] 00:00:00 [facility] MMR 2002-04-05 Completed [facility] 00:00:00 [facility] Polio (IPV/OPV) 2002-04-05 Completed [facility] 00:00:00 [facility] DTAP 2002-04-05 Completed [facility] 00:00:00 [facility] MMR 2002-04-05 Completed [facility] 00:00:00 [facility] Polio (IPV/OPV) 2002-04-05 Completed [facility] 00:00:00 [facility] DTAP 2002-04-05 Completed [facility] 00:00:00 [facility] MMR 2002-04-05 Completed [facility] 00:00:00 [facility] Polio (IPV/OPV) 2002-04-05 Completed [facility] 00:00:00 [facility] DTAP 2002-04-05 Completed [facility] 00:00:00 [facility] MMR 2002-04-05 Completed [facility] 00:00:00 [facility] Polio (IPV/OPV) 2002-04-05 Completed [facility] 00:00:00 [facility] DTAP 2002-04-05 Completed [facility] 00:00:00 [facility] MMR 2002-04-05 Completed [facility] 00:00:00 [facility] Polio (IPV/OPV) 2002-04-05 Completed [facility] 00:00:00 [facility] DTAP 2002-04-05 Completed [facility] 00:00:00 [facility] MMR 2002-04-05 Completed [facility] 00:00:00 [facility] Polio (IPV/OPV) 2002-04-05 Completed [facility] 00:00:00 [facility] DTAP 2002-04-05 Completed [facility] 00:00:00 [facility] MMR 2002-04-05 Completed [facility] 00:00:00 [facility] Polio (IPV/OPV) 2002-04-05 Completed [facility] 00:00:00 [facility] DTAP 2002-04-05 Completed [facility] 00:00:00 [facility] MMR 2002-04-05 Completed [facility] 00:00:00 [facility] Polio (IPV/OPV) 2002-04-05 Completed [facility] 00:00:00 [facility] DTAP 2002-04-05 Completed [facility] 00:00:00 [facility] MMR 2002-04-05 Completed [facility] 00:00:00 [facility] Polio (IPV/OPV) 2002-04-05 Completed [facility] 00:00:00 [facility] DTAP 2002-04-05 Completed [facility] 00:00:00 [facility] MMR 2002-04-05 Completed [facility] 00:00:00 [facility] Polio (IPV/OPV) 2002-04-05 Completed [facility] 00:00:00 [facility] DTAP 2002-04-05 Completed [facility] 00:00:00 [facility] MMR 2002-04-05 Completed [facility] 00:00:00 [facility] Polio (IPV/OPV) 2002-04-05 Completed [facility] 00:00:00 [facility] DTAP 2002-04-05 Completed [facility] 00:00:00 [facility] MMR 2002-04-05 Completed [facility] 00:00:00 [facility] Polio (IPV/OPV) 2002-04-05 Completed [facility] 00:00:00 [facility] DTAP 2002-04-05 Completed [facility] 00:00:00 [facility] MMR 2002-04-05 Completed [facility] 00:00:00 [facility] Polio (IPV/OPV) 2002-04-05 Completed [facility] 00:00:00 [facility] DTAP 2002-04-05 Completed [facility] 00:00:00 [facility] MMR 2002-04-05 Completed [facility] 00:00:00 [facility] Polio (IPV/OPV) 2002-04-05 Completed [facility] 00:00:00 [facility] DTAP 2002-04-05 Completed [facility] 00:00:00 [facility] MMR 2002-04-05 Completed [facility] 00:00:00 [facility] Polio (IPV/OPV) 2002-04-05 Completed [facility] 00:00:00 [facility] DTAP 2002-04-05 Completed [facility] 00:00:00 [facility] MMR 2002-04-05 Completed [facility] 00:00:00 [facility] Polio (IPV/OPV) 2002-04-05 Completed [facility] 00:00:00 [facility] DTAP 2002-04-05 Completed [facility] 00:00:00 [facility] MMR 2002-04-05 Completed [facility] 00:00:00 [facility] Polio (IPV/OPV) 2002-04-05 Completed [facility] 00:00:00 [facility] DTAP 2002-04-05 Completed [facility] 00:00:00 [facility] MMR 2002-04-05 Completed [facility] 00:00:00 [facility] Polio (IPV/OPV) 2002-04-05 Completed [facility] 00:00:00 [facility] DTAP 2002-04-05 Completed [facility] 00:00:00 [facility] MMR 2002-04-05 Completed [facility] 00:00:00 [facility] Polio (IPV/OPV) 2002-04-05 Completed [facility] 00:00:00 [facility] DTAP 2002-04-05 Completed [facility] 00:00:00 [facility] MMR 2002-04-05 Completed [facility] 00:00:00 [facility] Polio (IPV/OPV) 2002-04-05 Completed [facility] 00:00:00 [facility] DTAP 2002-04-05 Completed [facility] 00:00:00 [facility] MMR 2002-04-05 Completed [facility] 00:00:00 [facility] Polio (IPV/OPV) 2002-04-05 Completed [facility] 00:00:00 [facility] DTAP 2002-04-05 Completed [facility] 00:00:00 [facility] MMR 2002-04-05 Completed [facility] 00:00:00 [facility] Polio (IPV/OPV) 2002-04-05 Completed [facility] 00:00:00 [facility] DTAP 2002-04-05 Completed [facility] 00:00:00 [facility] MMR 2002-04-05 Completed [facility] 00:00:00 [facility] Polio (IPV/OPV) 2002-04-05 Completed [facility] 00:00:00 [facility] DTAP 2002-04-05 Completed [facility] 00:00:00 [facility] MMR 2002-04-05 Completed [facility] 00:00:00 [facility] Polio (IPV/OPV) 2002-04-05 Completed [facility] 00:00:00 [facility] DTAP 2002-04-05 Completed [facility] 00:00:00 [facility] MMR 2002-04-05 Completed [facility] 00:00:00 [facility] Polio (IPV/OPV) 2002-04-05 Completed [facility] 00:00:00 [facility] DTAP 2002-04-05 Completed [facility] 00:00:00 [facility] MMR 2002-04-05 Completed [facility] 00:00:00 [facility] Polio (IPV/OPV) 2002-04-05 Completed [facility] 00:00:00 [facility] DTAP 2002-04-05 Completed [facility] 00:00:00 [facility] MMR 2002-04-05 Completed [facility] 00:00:00 [facility] Polio (IPV/OPV) 2002-04-05 Completed [facility] 00:00:00 [facility] DTAP 2002-04-05 Completed [facility] 00:00:00 [facility] MMR 2002-04-05 Completed [facility] 00:00:00 [facility] Polio (IPV/OPV) 2002-04-05 Completed [facility] 00:00:00 [facility] DTAP 2002-04-05 Completed [facility] 00:00:00 [facility] MMR 2002-04-05 Completed [facility] 00:00:00 [facility] Polio (IPV/OPV) 2002-04-05 Completed [facility] 00:00:00 [facility] DTAP 2002-04-05 Completed [facility] 00:00:00 [facility] MMR 2002-04-05 Completed [facility] 00:00:00 [facility] Polio (IPV/OPV) 2002-04-05 Completed [facility] 00:00:00 [facility] DTAP 2002-04-05 Completed [facility] 00:00:00 [facility] MMR 2002-04-05 Completed [facility] 00:00:00 [facility] Polio (IPV/OPV) 2002-04-05 Completed [facility] 00:00:00 [facility] DTAP 2002-04-05 Completed [facility] 00:00:00 [facility] MMR 2002-04-05 Completed [facility] 00:00:00 [facility] Polio (IPV/OPV) 2002-04-05 Completed [facility] 00:00:00 [facility] DTAP 2001-11-28 Completed [facility] 00:00:00 [facility] MMR 2001-11-28 Completed [facility] 00:00:00 [facility] Polio (IPV/OPV) 2001-11-28 Completed [facility] 00:00:00 [facility] Varicella 2001-11-28 Completed [facility] (varivax)(chicken 00:00:00 [facility] DTAP 2001-11-28 Completed [facility] 00:00:00 [facility] MMR 2001-11-28 Completed [facility] 00:00:00 [facility] Polio (IPV/OPV) 2001-11-28 Completed [facility] 00:00:00 [facility] Varicella 2001-11-28 Completed [facility] (varivax)(chicken 00:00:00 [facility] DTAP 2001-11-28 Completed [facility] 00:00:00 [facility] MMR 2001-11-28 Completed [facility] 00:00:00 [facility] Polio (IPV/OPV) 2001-11-28 Completed [facility]00 [facility] Varicella 2001-11-28 Completed [facility] (varivax)(chicken 00:00:00 [place] [facility] DTAP 2001-11-28 Completed [facility] 00:00:00 [facility] MMR 2001-11-28 Completed [facility] 00:00:00 [facility] Polio (IPV/OPV) 2001-11-28 Completed [facility] 00:00:00 [facility] Varicella 2001-11-28 Completed [facility] (varivax)(chicken 00:00:00 [place] [facility] DTAP 2001-11-28 Completed [facility] 00:00:00 [facility] MMR 2001-11-28 Completed [facility] 00:00:00 [facility] Polio (IPV/OPV) 2001-11-28 Completed [facility] 00:00:00 [facility] Varicella 2001-11-28 Completed [facility] (varivax)(chicken 00:00:00 [place] [facility] DTAP 2001-11-28 Completed [facility] 00:00:00 [facility] MMR 2001-11-28 Completed [facility] 00:00:00 [facility] Polio (IPV/OPV) 2001-11-28 Completed [facility] 00:00:00 [facility] Varicella 2001-11-28 Completed [facility] (varivax)(chicken 00:00:00 [place] [facility] DTAP 2001-11-28 Completed [facility] 00:00:00 [facility] MMR 2001-11-28 Completed [facility] 00:00:00 [facility] Polio (IPV/OPV) 2001-11-28 Completed [facility] 00:00:00 [facility] Varicella 2001-11-28 Completed [facility] (varivax)(chicken 00:00:00 [place] [facility] DTAP 2001-11-28 Completed [facility] 00:00:00 [facility] MMR 2001-11-28 Completed [facility] 00:00:00 [facility] Polio (IPV/OPV) 2001-11-28 Completed [facility] 00:00:00 [facility] Varicella 2001-11-28 Completed [facility] (varivax)(chicken 00:00:00 [place] [facility] DTAP 2001-11-28 Completed [facility] 00:00:00 [facility] MMR 2001-11-28 Completed [facility] 00:00:00 [facility] Polio (IPV/OPV) 2001-11-28 Completed [facility] 00:00:00 [facility] Varicella 2001-11-28 Completed [facility] (varivax)(chicken 00:00:00 [place] [facility] DTAP 2001-11-28 Completed [facility] 00:00:00 [facility] MMR 2001-11-28 Completed [facility] 00:00:00 [facility] Polio (IPV/OPV) 2001-11-28 Completed [facility] 00:00:00 [facility] Varicella 2001-11-28 Completed [facility] (varivax)(chicken 00:00:00 [place] [facility] DTAP 2001-11-28 Completed [facility] 00:00:00 [facility] MMR 2001-11-28 Completed [facility] 00:00:00 [facility] Polio (IPV/OPV) 2001-11-28 Completed [facility] 00:00:00 [facility] Varicella 2001-11-28 Completed [facility] (varivax)(chicken 00:00:00 [place] [facility] DTAP 2001-11-28 Completed [facility] 00:00:00 [facility] MMR 2001-11-28 Completed [facility] 00:00:00 [facility] Polio (IPV/OPV) 2001-11-28 Completed [facility] 00:00:00 [facility] Varicella 2001-11-28 Completed [facility] (varivax)(chicken 00:00:00 [place] [facility] DTAP 2001-11-28 Completed [facility] 00:00:00 [facility] MMR 2001-11-28 Completed [facility] 00:00:00 [facility] Polio (IPV/OPV) 2001-11-28 Completed [facility] 00:00:00 [facility] Varicella 2001-11-28 Completed [facility] (varivax)(chicken 00:00:00 [place] [facility] DTAP 2001-11-28 Completed [facility] 00:00:00 [facility] MMR 2001-11-28 Completed [facility] 00:00:00 [facility] Polio (IPV/OPV) 2001-11-28 Completed [facility] 00:00:00 [facility] Varicella 2001-11-28 Completed [facility] (varivax)(chicken 00:00:00 [place] [facility] DTAP 2001-11-28 Completed [facility] 00:00:00 [facility] MMR 2001-11-28 Completed [facility] 00:00:00 [facility] Polio (IPV/OPV) 2001-11-28 Completed [facility] 00:00:00 [facility] Varicella 2001-11-28 Completed [facility] (varivax)(chicken 00:00:00 [place] [facility] DTAP 2001-11-28 Completed [facility] 00:00:00 [facility] MMR 2001-11-28 Completed [facility] 00:00:00 [facility] Polio (IPV/OPV) 2001-11-28 Completed [facility] 00:00:00 [facility] Varicella 2001-11-28 Completed [facility] (varivax)(chicken 00:00:00 [place] [facility] DTAP 2001-11-28 Completed [facility] 00:00:00 [facility] MMR 2001-11-28 Completed [facility] 00:00:00 [facility] Polio (IPV/OPV) 2001-11-28 Completed [facility] 00:00:00 [facility] Varicella 2001-11-28 Completed [facility] (varivax)(chicken 00:00:00 [place] [facility] DTAP 2001-11-28 Completed [facility] 00:00:00 [facility] MMR 2001-11-28 Completed [facility] 00:00:00 [facility] Polio (IPV/OPV) 2001-11-28 Completed [facility] 00:00:00 [facility] Varicella 2001-11-28 Completed [facility] (varivax)(chicken 00:00:00 [place] [facility] DTAP 2001-11-28 Completed [facility] 00:00:00 [facility] MMR 2001-11-28 Completed [facility] 00:00:00 [facility] Polio (IPV/OPV) 2001-11-28 Completed [facility] 00:00:00 [facility] Varicella 2001-11-28 Completed [facility] (varivax)(chicken 00:00:00 [place] [facility] DTAP 2001-11-28 Completed [facility] 00:00:00 [facility] MMR 2001-11-28 Completed [facility] 00:00:00 [facility] Polio (IPV/OPV) 2001-11-28 Completed [facility] 00:00:00 [facility] Varicella 2001-11-28 Completed [facility] (varivax)(chicken 00:00:00 [place] [facility] DTAP 2001-11-28 Completed [facility] 00:00:00 [facility] MMR 2001-11-28 Completed [facility] 00:00:00 [facility] Polio (IPV/OPV) 2001-11-28 Completed [facility] 00:00:00 [facility] Varicella 2001-11-28 Completed [facility] (varivax)(chicken 00:00:00 [place] [facility] DTAP 2001-11-28 Completed [facility] 00:00:00 [facility] MMR 2001-11-28 Completed [facility] 00:00:00 [facility] Polio (IPV/OPV) 2001-11-28 Completed [facility] 00:00:00 [facility] Varicella 2001-11-28 Completed [facility] (varivax)(chicken 00:00:00 [place] [facility] DTAP 2001-11-28 Completed [facility] 00:00:00 [facility] MMR 2001-11-28 Completed [facility] 00:00:00 [facility] Polio (IPV/OPV) 2001-11-28 Completed [facility] 00:00:00 [facility] Varicella 2001-11-28 Completed [facility] (varivax)(chicken 00:00:00 [place] [facility] DTAP 2001-11-28 Completed [facility] 00:00:00 [facility] MMR 2001-11-28 Completed [facility] 00:00:00 [facility] Polio (IPV/OPV) 2001-11-28 Completed [facility] 00:00:00 [facility] Varicella 2001-11-28 Completed [facility] (varivax)(chicken 00:00:00 [place] [facility] DTAP 2001-11-28 Completed [facility] 00:00:00 [facility] MMR 2001-11-28 Completed [facility] 00:00:00 [facility] Polio (IPV/OPV) 2001-11-28 Completed [facility] 00:00:00 [facility] Varicella 2001-11-28 Completed [facility] (varivax)(chicken 00:00:00 [place] [facility] DTAP 2001-11-28 Completed [facility] 00:00:00 [facility] MMR 2001-11-28 Completed [facility] 00:00:00 [facility] Polio (IPV/OPV) 2001-11-28 Completed [facility] 00:00:00 [facility] Varicella 2001-11-28 Completed [facility] (varivax)(chicken 00:00:00 [place] [facility] DTAP 2001-11-28 Completed [facility] 00:00:00 [facility] MMR 2001-11-28 Completed [facility] 00:00:00 [facility] Polio (IPV/OPV) 2001-11-28 Completed [facility] 00:00:00 [facility] Varicella 2001-11-28 Completed [facility] (varivax)(chicken 00:00:00 [place] [facility] DTAP 2001-11-28 Completed [facility] 00:00:00 [facility] MMR 2001-11-28 Completed [facility] 00:00:00 [facility] Polio (IPV/OPV) 2001-11-28 Completed [facility] 00:00:00 [facility] Varicella 2001-11-28 Completed [facility] (varivax)(chicken 00:00:00 [place] [facility] DTAP 2001-11-28 Completed [facility] 00:00:00 [facility] MMR 2001-11-28 Completed [facility] 00:00:00 [facility] Polio (IPV/OPV) 2001-11-28 Completed [facility] 00:00:00 [facility] Varicella 2001-11-28 Completed [facility] (varivax)(chicken 00:00:00 [place] [facility] DTAP 2001-11-28 Completed [facility] 00:00:00 [facility] MMR 2001-11-28 Completed [facility] 00:00:00 [facility] Polio (IPV/OPV) 2001-11-28 Completed [facility] 00:00:00 [facility] Varicella 2001-11-28 Completed [facility] (varivax)(chicken 00:00:00 [place] [facility] DTAP 2001-11-28 Completed [facility] 00:00:00 [facility] MMR 2001-11-28 Completed [facility] 00:00:00 [facility] Polio (IPV/OPV) 2001-11-28 Completed [facility] 00:00:00 [facility] Varicella 2001-11-28 Completed [facility] (varivax)(chicken 00:00:00 [place] [facility] DTAP 2001-11-28 Completed [facility] 00:00:00 [facility] MMR 2001-11-28 Completed [facility] 00:00:00 [facility] Polio (IPV/OPV) 2001-11-28 Completed [facility] 00:00:00 [facility] Varicella 2001-11-28 Completed [facility] (varivax)(chicken 00:00:00 [place] [facility] DTAP 2001-11-28 Completed [facility] 00:00:00 [facility] MMR 2001-11-28 Completed [facility] 00:00:00 [facility] Polio (IPV/OPV) 2001-11-28 Completed [facility] 00:00:00 [facility] Varicella 2001-11-28 Completed [facility] (varivax)(chicken 00:00:00 [place] [facility] DTAP 2001-11-28 Completed [facility] 00:00:00 [facility] MMR 2001-11-28 Completed [facility] 00:00:00 [facility] Polio (IPV/OPV) 2001-11-28 Completed [facility] 00:00:00 [facility] Varicella 2001-11-28 Completed [facility] (varivax)(chicken 00:00:00 [place] [facility] DTAP 2001-11-28 Completed [facility] 00:00:00 [facility] MMR 2001-11-28 Completed [facility] 00:00:00 [facility] Polio (IPV/OPV) 2001-11-28 Completed [facility] 00:00:00 [facility] Varicella 2001-11-28 Completed [facility] (varivax)(chicken 00:00:00 [place] [facility] DTAP 2001-11-28 Completed [facility] 00:00:00 [facility] MMR 2001-11-28 Completed [facility] 00:00:00 [facility] Polio (IPV/OPV) 2001-11-28 Completed [facility] 00:00:00 [facility] Varicella 2001-11-28 Completed [facility] (varivax)(chicken 00:00:00 [place] [facility] DTAP 2001-11-28 Completed [facility] 00:00:00 [facility] MMR 2001-11-28 Completed [facility] 00:00:00 [facility] Polio (IPV/OPV) 2001-11-28 Completed [facility] 00:00:00 [facility] Varicella 2001-11-28 Completed [facility] (varivax)(chicken 00:00:00 [place] [facility] DTAP 2001-11-28 Completed [facility] 00:00:00 [facility] MMR 2001-11-28 Completed [facility] 00:00:00 [facility] Polio (IPV/OPV) 2001-11-28 Completed [facility] 00:00:00 [facility] Varicella 2001-11-28 Completed [facility] (varivax)(chicken 00:00:00 [place] [facility] DTAP 2001-11-28 Completed [facility] 00:00:00 [facility] MMR 2001-11-28 Completed [facility] 00:00:00 [facility] Polio (IPV/OPV) 2001-11-28 Completed [facility] 00:00:00 [facility] Varicella 2001-11-28 Completed [facility] (varivax)(chicken 00:00:00 [place] [facility] DTAP 2001-11-28 Completed [facility] 00:00:00 [facility] MMR 2001-11-28 Completed [facility] 00:00:00 [facility] Polio (IPV/OPV) 2001-11-28 Completed [facility] 00:00:00 [facility] Varicella 2001-11-28 Completed [facility] (varivax)(chicken 00:00:00 [place] [facility] DTAP 2001-11-28 Completed [facility] 00:00:00 [facility] MMR 2001-11-28 Completed [facility] 00:00:00 [facility] Polio (IPV/OPV) 2001-11-28 Completed [facility] 00:00:00 [facility] Varicella 2001-11-28 Completed [facility] (varivax)(chicken 00:00:00 [place] [facility] DTAP 2001-11-28 Completed [facility] 00:00:00 [facility] MMR 2001-11-28 Completed [facility] 00:00:00 [facility] Polio (IPV/OPV) 2001-11-28 Completed [facility] 00:00:00 [facility] Varicella 2001-11-28 Completed [facility] (varivax)(chicken 00:00:00 [place] [facility] DTAP 2001-11-28 Completed [facility] 00:00:00 [facility] MMR 2001-11-28 Completed [facility] 00:00:00 [facility] Polio (IPV/OPV) 2001-11-28 Completed [facility] 00:00:00 [facility] Varicella 2001-11-28 Completed [facility] (varivax)(chicken 00:00:00 [place] [facility] DTAP 2001-11-28 Completed [facility] 00:00:00 [facility] MMR 2001-11-28 Completed [facility] 00:00:00 [facility] Polio (IPV/OPV) 2001-11-28 Completed [facility] 00:00:00 [facility] Varicella 2001-11-28 Completed [facility] (varivax)(chicken 00:00:00 [place] [facility] DTAP 2001-11-28 Completed [facility] 00:00:00 [facility] MMR 2001-11-28 Completed [facility] 00:00:00 [facility] Polio (IPV/OPV) 2001-11-28 Completed [facility] 00:00:00 [facility] Varicella 2001-11-28 Completed [facility] (varivax)(chicken 00:00:00 [place] [facility] DTAP 2001-11-28 Completed [facility] 00:00:00 [facility] MMR 2001-11-28 Completed [facility] 00:00:00 [facility] Polio (IPV/OPV) 2001-11-28 Completed [facility] 00:00:00 [facility] Varicella 2001-11-28 Completed [facility] (varivax)(chicken 00:00:00 [place] [facility] DTAP 2001-11-28 Completed [facility] 00:00:00 [facility] MMR 2001-11-28 Completed [facility] 00:00:00 [facility] Polio (IPV/OPV) 2001-11-28 Completed [facility] 00:00:00 [facility] Varicella 2001-11-28 Completed [facility] (varivax)(chicken 00:00:00 [place] [facility] DTAP 2001-11-28 Completed [facility] 00:00:00 [facility] MMR 2001-11-28 Completed [facility] 00:00:00 [facility] Polio (IPV/OPV) 2001-11-28 Completed [facility] 00:00:00 [facility] Varicella 2001-11-28 Completed [facility] (varivax)(chicken 00:00:00 [place] [facility] DTAP 2001-11-28 Completed [facility] 00:00:00 [facility] MMR 2001-11-28 Completed [facility] 00:00:00 [facility] Polio (IPV/OPV) 2001-11-28 Completed [facility] 00:00:00 [facility] Varicella 2001-11-28 Completed [facility] (varivax)(chicken 00:00:00 [place] [facility] DTAP 2001-11-28 Completed [facility] 00:00:00 [facility] MMR 2001-11-28 Completed [facility] 00:00:00 [facility] Polio (IPV/OPV) 2001-11-28 Completed [facility] 00:00:00 [facility] Varicella 2001-11-28 Completed [facility] (varivax)(chicken 00:00:00 [place] [facility] DTAP 2001-11-28 Completed [facility] 00:00:00 [facility] MMR 2001-11-28 Completed [facility] 00:00:00 [facility] Polio (IPV/OPV) 2001-11-28 Completed [facility] 00:00:00 [facility] Varicella 2001-11-28 Completed [facility] (varivax)(chicken 00:00:00 [place] [facility] DTAP 2001-11-28 Completed [facility] 00:00:00 [facility] MMR 2001-11-28 Completed [facility] 00:00:00 [facility] Polio (IPV/OPV) 2001-11-28 Completed [facility] 00:00:00 [facility] Varicella 2001-11-28 Completed [facility] (varivax)(chicken 00:00:00 [place] [facility] DTAP 2001-11-28 Completed [facility] 00:00:00 [facility] MMR 2001-11-28 Completed [facility] 00:00:00 [facility] Polio (IPV/OPV) 2001-11-28 Completed [facility] 00:00:00 [facility] Varicella 2001-11-28 Completed [facility] (varivax)(chicken 00:00:00 [place] [facility] DTAP 2001-11-28 Completed [facility] 00:00:00 [facility] MMR 2001-11-28 Completed [facility] 00:00:00 [facility] Polio (IPV/OPV) 2001-11-28 Completed [facility] 00:00:00 [facility] Varicella 2001-11-28 Completed [facility] (varivax)(chicken 00:00:00 [place] [facility] DTAP 2001-11-28 Completed [facility] 00:00:00 [facility] MMR 2001-11-28 Completed [facility] 00:00:00 [facility] Polio (IPV/OPV) 2001-11-28 Completed [facility] 00:00:00 [facility] Varicella 2001-11-28 Completed [facility] (varivax)(chicken 00:00:00 [place] [facility] DTAP 2001-11-28 Completed [facility] 00:00:00 [facility] MMR 2001-11-28 Completed [facility] 00:00:00 [facility] Polio (IPV/OPV) 2001-11-28 Completed [facility] 00:00:00 [facility] Varicella 2001-11-28 Completed [facility] (varivax)(chicken 00:00:00 [place] [facility] DTAP 2001-11-28 Completed [facility] 00:00:00 [facility] MMR 2001-11-28 Completed [facility] 00:00:00 [facility] Polio (IPV/OPV) 2001-11-28 Completed [facility] 00:00:00 [facility] Varicella 2001-11-28 Completed [facility] (varivax)(chicken 00:00:00 [place] [facility] DTAP 2001-11-28 Completed [facility] 00:00:00 [facility] MMR 2001-11-28 Completed [facility] 00:00:00 [facility] Polio (IPV/OPV) 2001-11-28 Completed [facility] 00:00:00 [facility] Varicella 2001-11-28 Completed [facility] (varivax)(chicken 00:00:00 [place] [facility] DTAP 2001-11-28 Completed [facility] 00:00:00 [facility] MMR 2001-11-28 Completed [facility] 00:00:00 [facility] Polio (IPV/OPV) 2001-11-28 Completed [facility] 00:00:00 [facility] Varicella 2001-11-28 Completed [facility] [...] Branch DTAP 1999-11-18 Completed [facility] 00:00:00 [facility] HIB 4 Dose Schedule 1999-11-18 Completed [facility] rs[facility] 00:00:00 [facility] Hep B, Adol or Pedi 1999-11-18 Completed [facility]ive rs[facility] of Dosage 00:00:00 [facility] Polio (IPV/OPV) 1999-11-18 Completed [facility] 00:00:00 [facility] DTAP 1999-11-18 Completed [facility] 00:00:00 [facility] HIB 4 Dose Schedule 1999-11-18 Completed [facility] 00:00:00 [facility] Hep B, Adol or Pedi 1999-11-18 Completed [facility]ive rs[facility] of Dosage 00:00:00 [facility] Polio (IPV/OPV) 1999-11-18 Completed [facility] 00:00:00 [facility] DTAP 1999-11-18 Completed [facility] 00:00:00 [facility] HIB 4 Dose Schedule 1999-11-18 Completed [facility] 00:00:00 [facility] Hep B, Adol or Pedi 1999-11-18 Completed [facility] of Dosage 00:00:00 [facility] Polio (IPV/OPV) 1999-11-18 Completed [facility] 00:00:00 [facility] DTAP 1999-11-18 Completed [facility] 00:00:00 [facility] HIB 4 Dose Schedule 1999-11-18 Completed [facility] 00:00:00 [facility] Hep B, Adol or Pedi 1999-11-18 Completed [facility] rs[facility] of Dosage 00:00:00 [facility] Polio (IPV/OPV) 1999-11-18 Completed [facility] 00:00:00 [facility] DTAP 1999-11-18 Completed [facility] 00:00:00 [facility] HIB 4 Dose Schedule 1999-11-18 Completed [facility] 00:00:00 [facility] Hep B, Adol or Pedi 1999-11-18 Completed [facility] of Dosage 00:00:00 [facility] Polio (IPV/OPV) 1999-11-18 Completed [facility] 00:00:00 [facility] DTAP 1999-11-18 Completed [facility] 00:00:00 [facility] HIB 4 Dose Schedule 1999-11-18 Completed [facility] 00:00:00 [facility] Hep B, Adol or Pedi 1999-11-18 Completed [facility] of Dosage 00:00:00 [facility] Polio (IPV/OPV) 1999-11-18 Completed [facility] 00:00:00 [facility] DTAP 1999-11-18 Completed [facility] 00:00:00 [facility] HIB 4 Dose Schedule 1999-11-18 Completed [facility] 00:00:00 [facility] Hep B, Adol or Pedi 1999-11-18 Completed [facility] Dosage 00:00:00 [facility] Polio (IPV/OPV) 1999-11-18 Completed [facility] 00:00:00 [facility] DTAP 1999-11-18 Completed [facility] 00:00:00 [facility] HIB 4 Dose Schedule 1999-11-18 Completed [facility] 00:00:00 [facility] Hep B, Adol or Pedi 1999-11-18 Completed [facility] Dosage 00:00:00 [facility] Polio (IPV/OPV) 1999-11-18 Completed [facility] 00:00:00 [facility] DTAP 1999-11-18 Completed [facility] 00:00:00 [facility] HIB 4 Dose Schedule 1999-11-18 Completed [facility] 00:00:00 [facility] Hep B, Adol or Pedi 1999-11-18 Completed [facility] of Dosage 00:00:00 [facility] Polio (IPV/OPV) 1999-11-18 Completed [facility] 00:00:00 [facility] DTAP 1999-11-18 Completed [facility] 00:00:00 [facility] HIB 4 Dose Schedule 1999-11-18 Completed [facility] 00:00:00 [facility] Hep B, Adol or Pedi 1999-11-18 Completed [facility] Dosage 00:00:00 [facility] Polio (IPV/OPV) 1999-11-18 Completed [facility] 00:00:00 [facility] DTAP 1999-11-18 Completed [facility] 00:00:00 [facility] HIB 4 Dose Schedule 1999-11-18 Completed [facility] 00:00:00 [facility] Hep B, Adol or Pedi 1999-11-18 Completed [facility] Dosage 00:00:00 [facility] Polio (IPV/OPV) 1999-11-18 Completed [facility] 00:00:00 [facility] DTAP 1999-11-18 Completed [facility] 00:00:00 [facility] HIB 4 Dose Schedule 1999-11-18 Completed [facility] 00:00:00 [facility] Hep B, Adol or Pedi 1999-11-18 Completed [facility] Dosage 00:00:00 [facility] Polio (IPV/OPV) 1999-11-18 Completed [facility] 00:00:00 [facility] DTAP 1999-11-18 Completed [facility] 00:00:00 [facility] HIB 4 Dose Schedule 1999-11-18 Completed [facility] 00:00:00 [facility] Hep B, Adol or Pedi 1999-11-18 Completed [facility] Dosage 00:00:00 [facility] Polio (IPV/OPV) 1999-11-18 Completed [facility] 00:00:00 [facility] DTAP 1999-11-18 Completed [facility] 00:00:00 [facility] HIB 4 Dose Schedule 1999-11-18 Completed [facility] 00:00:00 [facility] Hep B, Adol or Pedi 1999-11-18 Completed [facility] Dosage 00:00:00 [facility] Polio (IPV/OPV) 1999-11-18 Completed [facility] 00:00:00 [facility] DTAP 1999-11-18 Completed [facility] 00:00:00 [facility] HIB 4 Dose Schedule 1999-11-18 Completed [facility] 00:00:00 [facility] Hep B, Adol or Pedi 1999-11-18 Completed [facility] Dosage 00:00:00 [facility] Polio (IPV/OPV) 1999-11-18 Completed [facility] 00:00:00 [facility] DTAP 1999-11-18 Completed [facility] 00:00:00 [facility] HIB 4 Dose Schedule 1999-11-18 Completed [facility] 00:00:00 [facility] Hep B, Adol or Pedi 1999-11-18 Completed [facility] Dosage 00:00:00 [facility] Polio (IPV/OPV) 1999-11-18 Completed [facility] 00:00:00 [facility] DTAP 1999-11-18 Completed [facility] 00:00:00 [facility] HIB 4 Dose Schedule 1999-11-18 Completed [facility] 00:00:00 [facility] Hep B, Adol or Pedi 1999-11-18 Completed [facility] Dosage 00:00:00 [facility] Polio (IPV/OPV) 1999-11-18 Completed [facility] 00:00:00 [facility] DTAP 1999-11-18 Completed [facility] 00:00:00 [facility] HIB 4 Dose Schedule 1999-11-18 Completed [facility] 00:00:00 [facility] Hep B, Adol or Pedi 1999-11-18 Completed [facility] Dosage 00:00:00 [facility] Polio (IPV/OPV) 1999-11-18 Completed [facility] 00:00:00 [facility] DTAP 1999-11-18 Completed [facility] 00:00:00 [facility] HIB 4 Dose Schedule 1999-11-18 Completed [facility] 00:00:00 [facility] Hep B, Adol or Pedi 1999-11-18 Completed [facility] Dosage 00:00:00 [facility] Polio (IPV/OPV) 1999-11-18 Completed [facility] 00:00:00 [facility] DTAP 1999-11-18 Completed [facility] 00:00:00 [facility] HIB 4 Dose Schedule 1999-11-18 Completed [facility] 00:00:00 [facility] Hep B, Adol or Pedi 1999-11-18 Completed [facility] Dosage 00:00:00 [facility] Polio (IPV/OPV) 1999-11-18 Completed [facility] 00:00:00 [facility] DTAP 1999-11-18 Completed [facility] 00:00:00 [facility] HIB 4 Dose Schedule 1999-11-18 Completed [facility] 00:00:00 [facility] Hep B, Adol or Pedi 1999-11-18 Completed [facility] Dosage 00:00:00 [facility] Polio (IPV/OPV) 1999-11-18 Completed [facility] 00:00:00 [facility] DTAP 1999-11-18 Completed [facility] 00:00:00 [facility] HIB 4 Dose Schedule 1999-11-18 Completed [facility] 00:00:00 [facility] Hep B, Adol or Pedi 1999-11-18 Completed [facility] Dosage 00:00:00 [facility] Polio (IPV/OPV) 1999-11-18 Completed [facility] 00:00:00 [facility] DTAP 1999-11-18 Completed [facility] 00:00:00 [facility] HIB 4 Dose Schedule 1999-11-18 Completed [facility] 00:00:00 [facility] Hep B, Adol or Pedi 1999-11-18 Completed [facility] Dosage 00:00:00 [facility] Polio (IPV/OPV) 1999-11-18 Completed [facility] 00:00:00 [facility] DTAP 1999-11-18 Completed [facility] 00:00:00 [facility] HIB 4 Dose Schedule 1999-11-18 Completed [facility] 00:00:00 [facility] Hep B, Adol or Pedi 1999-11-18 Completed [facility] Dosage 00:00:00 [facility] Polio (IPV/OPV) 1999-11-18 Completed [facility] 00:00:00 [facility] DTAP 1999-11-18 Completed [facility] 00:00:00 [facility] HIB 4 Dose Schedule 1999-11-18 Completed [facility] 00:00:00 [facility] Hep B, Adol or Pedi 1999-11-18 Completed [facility] Dosage 00:00:00 [facility] Polio (IPV/OPV) 1999-11-18 Completed [facility] 00:00:00 [facility] DTAP 1999-11-18 Completed [facility] 00:00:00 [facility] HIB 4 Dose Schedule 1999-11-18 Completed [facility] 00:00:00 [facility] Hep B, Adol or Pedi 1999-11-18 Completed [facility] Dosage 00:00:00 [facility] Polio (IPV/OPV) 1999-11-18 Completed [facility] 00:00:00 [facility] DTAP 1999-11-18 Completed [facility] 00:00:00 [facility] HIB 4 Dose Schedule 1999-11-18 Completed [facility] 00:00:00 [facility] Hep B, Adol or Pedi 1999-11-18 Completed [facility] Dosage 00:00:00 [facility] Polio (IPV/OPV) 1999-11-18 Completed [facility] 00:00:00 [facility] DTAP 1999-11-18 Completed [facility] 00:00:00 [facility] HIB 4 Dose Schedule 1999-11-18 Completed [facility] 00:00:00 [facility] Hep B, Adol or Pedi 1999-11-18 Completed [facility] Dosage 00:00:00 [facility] Polio (IPV/OPV) 1999-11-18 Completed [facility] 00:00:00 [facility] DTAP 1999-11-18 Completed [facility] 00:00:00 [facility] HIB 4 Dose Schedule 1999-11-18 Completed [facility] 00:00:00 [facility] Hep B, Adol or Pedi 1999-11-18 Completed [facility] Dosage 00:00:00 [facility] Polio (IPV/OPV) 1999-11-18 Completed [facility] 00:00:00 [facility] DTAP 1999-11-18 Completed [facility] 00:00:00 [facility] HIB 4 Dose Schedule 1999-11-18 Completed [facility] 00:00:00 [facility] Hep B, Adol or Pedi 1999-11-18 Completed [facility] Dosage 00:00:00 [facility] Polio (IPV/OPV) 1999-11-18 Completed [facility] 00:00:00 [facility] DTAP 1999-11-18 Completed [facility] 00:00:00 [facility] HIB 4 Dose Schedule 1999-11-18 Completed [facility] 00:00:00 [facility] Hep B, Adol or Pedi 1999-11-18 Completed [facility] Dosage 00:00:00 [facility] Polio (IPV/OPV) 1999-11-18 Completed [facility] 00:00:00 [facility] DTAP 1999-11-18 Completed [facility] 00:00:00 [facility] HIB 4 Dose Schedule 1999-11-18 Completed [facility] 00:00:00 [facility] Hep B, Adol or Pedi 1999-11-18 Completed [facility] Dosage 00:00:00 [facility] Polio (IPV/OPV) 1999-11-18 Completed [facility] 00:00:00 [facility] DTAP 1999-11-18 Completed [facility] 00:00:00 [facility] HIB 4 Dose Schedule 1999-11-18 Completed [facility] 00:00:00 [facility] Hep B, Adol or Pedi 1999-11-18 Completed [facility] Dosage 00:00:00 [facility] Polio (IPV/OPV) 1999-11-18 Completed [facility] 00:00:00 [facility] DTAP 1999-11-18 Completed [facility] 00:00:00 [facility] HIB 4 Dose Schedule 1999-11-18 Completed [facility] 00:00:00 [facility] Hep B, Adol or Pedi 1999-11-18 Completed [facility] Dosage 00:00:00 [facility] Polio (IPV/OPV) 1999-11-18 Completed [facility] 00:00:00 [facility] DTAP 1999-11-18 Completed [facility] 00:00:00 [facility] HIB 4 Dose Schedule 1999-11-18 Completed [facility] 00:00:00 [facility] Hep B, Adol or Pedi 1999-11-18 Completed [facility] Dosage 00:00:00 [facility] Polio (IPV/OPV) 1999-11-18 Completed [facility] 00:00:00 [facility] DTAP 1999-11-18 Completed [facility] 00:00:00 [facility] HIB 4 Dose Schedule 1999-11-18 Completed [facility] 00:00:00 [facility] Hep B, Adol or Pedi 1999-11-18 Completed [facility] Dosage 00:00:00 [facility] Polio (IPV/OPV) 1999-11-18 Completed [facility] 00:00:00 [facility] DTAP 1999-11-18 Completed [facility] 00:00:00 [facility] HIB 4 Dose Schedule 1999-11-18 Completed [facility] 00:00:00 [facility] Hep B, Adol or Pedi 1999-11-18 Completed [facility] Dosage 00:00:00 [facility] Polio (IPV/OPV) 1999-11-18 Completed [facility] 00:00:00 [facility] DTAP 1999-11-18 Completed [facility] 00:00:00 [facility] HIB 4 Dose Schedule 1999-11-18 Completed [facility] 00:00:00 [facility] Hep B, Adol or Pedi 1999-11-18 Completed [facility] Dosage 00:00:00 [facility] Polio (IPV/OPV) 1999-11-18 Completed [facility] 00:00:00 [facility] DTAP 1999-11-18 Completed [facility] 00:00:00 [facility] HIB 4 Dose Schedule 1999-11-18 Completed [facility] 00:00:00 [facility] Hep B, Adol or Pedi 1999-11-18 Completed [facility] Dosage 00:00:00 [facility] Polio (IPV/OPV) 1999-11-18 Completed [facility] 00:00:00 [facility] DTAP 1999-11-18 Completed [facility] 00:00:00 [facility] HIB 4 Dose Schedule 1999-11-18 Completed [facility] 00:00:00 [facility] Hep B, Adol or Pedi 1999-11-18 Completed [facility] Dosage 00:00:00 [facility] Polio (IPV/OPV) 1999-11-18 Completed [facility] 00:00:00 [facility] DTAP 1999-11-18 Completed [facility] 00:00:00 [facility] HIB 4 Dose Schedule 1999-11-18 Completed [facility] 00:00:00 [facility] Hep B, Adol or Pedi 1999-11-18 Completed [facility] Dosage 00:00:00 [facility] Polio (IPV/OPV) 1999-11-18 Completed [facility] 00:00:00 [facility] DTAP 1999-11-18 Completed [facility] 00:00:00 [facility] HIB 4 Dose Schedule 1999-11-18 Completed [facility] 00:00:00 [facility] Hep B, Adol or Pedi 1999-11-18 Completed [facility] Dosage 00:00:00 [facility] Polio (IPV/OPV) 1999-11-18 Completed [facility] 00:00:00 [facility] DTAP 1999-11-18 Completed [facility] 00:00:00 [facility] HIB 4 Dose Schedule 1999-11-18 Completed [facility] 00:00:00 [facility] Hep B, Adol or Pedi 1999-11-18 Completed [facility] Dosage 00:00:00 [facility] Polio (IPV/OPV) 1999-11-18 Completed [facility] 00:00:00 [facility] DTAP 1999-11-18 Completed [facility] 00:00:00 [facility] HIB 4 Dose Schedule 1999-11-18 Completed [facility] 00:00:00 [facility] Hep B, Adol or Pedi 1999-11-18 Completed [facility] Dosage 00:00:00 [facility] Polio (IPV/OPV) 1999-11-18 Completed [facility] 00:00:00 [facility] DTAP 1999-11-18 Completed [facility] 00:00:00 [facility] HIB 4 Dose Schedule 1999-11-18 Completed [facility] 00:00:00 [facility] Hep B, Adol or Pedi 1999-11-18 Completed [facility] Dosage 00:00:00 [facility] Polio (IPV/OPV) 1999-11-18 Completed [facility] 00:00:00 [facility] DTAP 1999-11-18 Completed [facility] 00:00:00 [facility] HIB 4 Dose Schedule 1999-11-18 Completed [facility] 00:00:00 [facility] Hep B, Adol or Pedi 1999-11-18 Completed [facility] Dosage 00:00:00 [facility] Polio (IPV/OPV) 1999-11-18 Completed [facility] 00:00:00 [facility] DTAP 1999-11-18 Completed [facility] 00:00:00 [facility] HIB 4 Dose Schedule 1999-11-18 Completed [facility] 00:00:00 [facility] Hep B, Adol or Pedi 1999-11-18 Completed [facility] Dosage 00:00:00 [facility] Polio (IPV/OPV) 1999-11-18 Completed [facility] 00:00:00 [facility] DTAP 1999-11-18 Completed [facility] 00:00:00 [facility] HIB 4 Dose Schedule 1999-11-18 Completed [facility] 00:00:00 [facility] Hep B, Adol or Pedi 1999-11-18 Completed [facility] Dosage 00:00:00 [facility] Polio (IPV/OPV) 1999-11-18 Completed [facility] 00:00:00 [facility] DTAP 1999-11-18 Completed [facility] 00:00:00 [facility] HIB 4 Dose Schedule 1999-11-18 Completed [facility] 00:00:00 [facility] Hep B, Adol or Pedi 1999-11-18 Completed [facility] Dosage 00:00:00 [facility] Polio (IPV/OPV) 1999-11-18 Completed [facility] 00:00:00 [facility] DTAP 1999-11-18 Completed [facility] 00:00:00 [facility] HIB 4 Dose Schedule 1999-11-18 Completed [facility] 00:00:00 [facility] Hep B, Adol or Pedi 1999-11-18 Completed [facility] Dosage 00:00:00 [facility] Polio (IPV/OPV) 1999-11-18 Completed [facility] 00:00:00 [facility] DTAP 1999-11-18 Completed [facility] 00:00:00 [facility] HIB 4 Dose Schedule 1999-11-18 Completed [facility] 00:00:00 [facility] Hep B, Adol or Pedi 1999-11-18 Completed [facility] Dosage 00:00:00 [facility] Polio (IPV/OPV) 1999-11-18 Completed [facility] 00:00:00 [facility] DTAP 1999-11-18 Completed [facility] 00:00:00 [facility] HIB 4 Dose Schedule 1999-11-18 Completed [facility] 00:00:00 [facility] Hep B, Adol or Pedi 1999-11-18 Completed [facility] Dosage 00:00:00 [facility] Polio (IPV/OPV) 1999-11-18 Completed [facility] 00:00:00 [facility] DTAP 1999-11-18 Completed [facility] 00:00:00 [facility] HIB 4 Dose Schedule 1999-11-18 Completed [facility] 00:00:00 [facility] Hep B, Adol or Pedi 1999-11-18 Completed [facility] Dosage 00:00:00 [facility] Polio (IPV/OPV) 1999-11-18 Completed [facility] 00:00:00 [facility] DTAP 1999-11-18 Completed [facility] 00:00:00 [facility] HIB 4 Dose Schedule 1999-11-18 Completed [facility] 00:00:00 [facility] Hep B, Adol or Pedi 1999-11-18 Completed [facility] Dosage 00:00:00 [facility] Polio (IPV/OPV) 1999-11-18 Completed [facility] 00:00:00 [facility] DTAP 1999-11-18 Completed [facility] 00:00:00 [facility] HIB 4 Dose Schedule 1999-11-18 Completed [facility] 00:00:00 [facility] Hep B, Adol or Pedi 1999-11-18 Completed [facility] Dosage 00:00:00 [facility] Polio (IPV/OPV) 1999-11-18 Completed [facility] 00:00:00 [facility] DTAP 1999-11-18 Completed [facility] 00:00:00 [facility] HIB 4 Dose Schedule 1999-11-18 Completed [facility] 00:00:00 [facility] Hep B, Adol or Pedi 1999-11-18 Completed [facility] Dosage 00:00:00 [facility] Polio (IPV/OPV) 1999-11-18 Completed [facility] 00:00:00 [facility] DTAP 1999-11-18 Completed [facility] 00:00:00 [facility] HIB 4 Dose Schedule 1999-11-18 Completed [facility] 00:00:00 [facility] Hep B, Adol or Pedi 1999-11-18 Completed [facility] Dosage 00:00:00 [facility] Polio (IPV/OPV) 1999-11-18 Completed [facility] 00:00:00 [facility] DTAP 1999-11-18 Completed [facility] 00:00:00 [facility] HIB 4 Dose Schedule 1999-11-18 Completed [facility] 00:00:00 [facility] Hep B, Adol or Pedi 1999-11-18 Completed [facility] Dosage 00:00:00 [facility] Polio (IPV/OPV) 1999-11-18 Completed [facility] 00:00:00 [facility] DTAP 1999-11-18 Completed [facility] 00:00:00 [facility] HIB 4 Dose Schedule 1999-11-18 Completed [facility] 00:00:00 [facility] Hep B, Adol or Pedi 1999-11-18 Completed [facility] Dosage 00:00:00 [facility] Polio (IPV/OPV) 1999-11-18 Completed [facility] 00:00:00 [facility] DTAP 1998 Completed [facility] 00:00:00 [facility] HIB 4 Dose Schedule 1998 Completed [facility] 00:00:00 [facility] Hep B, Adol or Pedi 1998 Completed [facility] Dosage 00:00:00 [facility] Polio (IPV/OPV) 1998 Completed [facility] 00:00:00 [facility] DTAP 1998 Completed [facility] 00:00:00 [facility] HIB 4 Dose Schedule 1998 Completed [facility] 00:00:00 [facility] Hep B, Adol or Pedi 1998 Completed [facility] Dosage 00:00:00 [facility] Polio (IPV/OPV) 1998 Completed [facility] 00:00:00 [facility] DTAP 1998 Completed [facility] 00:00:00 [facility] HIB 4 Dose Schedule 1998 Completed [facility] 00:00:00 [facility] Hep B, Adol or Pedi 1998 Completed [facility] Dosage 00:00:00 [facility] Polio (IPV/OPV) 1998 Completed [facility] 00:00:00 [facility] DTAP 1998 Completed [facility] 00:00:00 [facility] HIB 4 Dose Schedule 1998 Completed [facility] 00:00:00 [facility] Hep B, Adol or Pedi 1998 Completed [facility] Dosage 00:00:00 [facility] Polio (IPV/OPV) 1998 Completed [facility] 00:00:00 [facility] DTAP 1998 Completed [facility] 00:00:00 [facility] HIB 4 Dose Schedule 1998 Completed [facility] 00:00:00 [facility] Hep B, Adol or Pedi 1998 Completed [facility] Dosage 00:00:00 [facility] Polio (IPV/OPV) 1998 Completed [facility] 00:00:00 [facility] DTAP 1998 Completed [facility] 00:00:00 [facility] HIB 4 Dose Schedule 1998 Completed [facility] 00:00:00 [facility] Hep B, Adol or Pedi 1998 Completed [facility] Dosage 00:00:00 [facility] Polio (IPV/OPV) 1998 Completed [facility] 00:00:00 [facility] DTAP 1998 Completed [facility] 00:00:00 [facility] HIB 4 Dose Schedule 1998 Completed [facility] 00:00:00 [facility] Hep B, Adol or Pedi 1998 Completed [facility] Dosage 00:00:00 [facility] Polio (IPV/OPV) 1998 Completed [facility] 00:00:00 [facility] DTAP 1998 Completed [facility] 00:00:00 [facility] HIB 4 Dose Schedule 1998 Completed [facility] 00:00:00 [facility] Hep B, Adol or Pedi 1998 Completed [facility] Dosage 00:00:00 [facility] Polio (IPV/OPV) 1998 Completed [facility] 00:00:00 [facility] DTAP 1998 Completed [facility] 00:00:00 [facility] HIB 4 Dose Schedule 1998 Completed [facility] 00:00:00 [facility] Hep B, Adol or Pedi 1998 Completed [facility] Dosage 00:00:00 [facility] Polio (IPV/OPV) 1998 Completed [facility] 00:00:00 [facility] DTAP 1998 Completed [facility] 00:00:00 [facility] HIB 4 Dose Schedule 1998 Completed [facility] 00:00:00 [facility] Hep B, Adol or Pedi 1998 Completed [facility] Dosage 00:00:00 [facility] Polio (IPV/OPV) 1998 Completed [facility] 00:00[facility]00 [facility] DTAP 1998 Completed [facility] 00:00:00 [facility] HIB 4 Dose Schedule 1998 Completed [facility] 00:00:00 [facility] Hep B, Adol or Pedi 1998 Completed [facility] Dosage 00:00:00 [facility] Polio (IPV/OPV) 1998 Completed [facility] 00:00:00 [facility] DTAP 1998 Completed [facility] 00:00:00 [facility] HIB 4 Dose Schedule 1998 Completed [facility] 00:00:00 [facility] Hep B, Adol or Pedi 1998 Completed [facility] Dosage 00:00:00 [facility] Polio (IPV/OPV) 1998 Completed [facility] 00:00:00 [facility] DTAP 1998 Completed [facility] 00:00:00 [facility] HIB 4 Dose Schedule 1998 Completed [facility] 00:00:00 [facility] Hep B, Adol or Pedi 1998 Completed [facility] Dosage 00:00:00 [facility] Polio (IPV/OPV) 1998 Completed [facility] 00:00:00 [facility] DTAP 1998 Completed [facility] 00:00:00 [facility] HIB 4 Dose Schedule 1998 Completed [facility] 00:00:00 [facility] Hep B, Adol or Pedi 1998 Completed [facility] Dosage 00:00:00 [facility] Polio (IPV/OPV) 1998 Completed [facility] 00:00:00 [facility] DTAP 1998 Completed [facility] 00:00:00 [facility] HIB 4 Dose Schedule 1998 Completed [facility] 00:00:00 [facility] Hep B, Adol or Pedi 1998 Completed [facility] Dosage 00:00:00 [facility] Polio (IPV/OPV) 1998 Completed [facility] 00:00:00 [facility] DTAP 1998 Completed [facility] 00:00:00 [facility] HIB 4 Dose Schedule 1998 Completed [facility] 00:00:00 [facility] Hep B, Adol or Pedi 1998 Completed [facility] Dosage 00:00:00 [facility] Polio (IPV/OPV) 1998 Completed [facility] 00:00:00 [facility] DTAP 1998 Completed [facility] 00:00:00 [facility] HIB 4 Dose Schedule 1998 Completed [facility] 00:00:00 [facility] Hep B, Adol or Pedi 1998 Completed [facility] Dosage 00:00:00 [facility] Polio (IPV/OPV) 1998 Completed [facility] 00:00:00 [facility] DTAP 1998 Completed [facility] 00:00:00 [facility] HIB 4 Dose Schedule 1998 Completed [facility] 00:00:00 [facility] Hep B, Adol or Pedi 1998 Completed [facility] Dosage 00:00:00 [facility] Polio (IPV/OPV) 1998 Completed [facility] 00:00:00 [facility] DTAP 1998 Completed [facility] 00:00:00 [facility] HIB 4 Dose Schedule 1998 Completed [facility] 00:00:00 [facility] Hep B, Adol or Pedi 1998 Completed [facility] Dosage 00:00:00 [facility] Polio (IPV/OPV) 1998 Completed [facility] 00:00:00 [facility] DTAP 1998 Completed [facility] 00:00:00 [facility] HIB 4 Dose Schedule 1998 Completed [facility] 00:00:00 [facility] Hep B, Adol or Pedi 1998 Completed [facility] Dosage 00:00:00 [facility] Polio (IPV/OPV) 1998 Completed [facility] 00:00:00 [facility] DTAP 1998 Completed [facility] 00:00:00 [facility] HIB 4 Dose Schedule 1998 Completed [facility] 00:00:00 [facility] Hep B, Adol or Pedi 1998 Completed [facility] Dosage 00:00:00 [facility] Polio (IPV/OPV) 1998 Completed [facility] 00:00:00 [facility] DTAP 1998 Completed [facility] 00:00:00 [facility] HIB 4 Dose Schedule 1998 Completed [facility] 00:00:00 [facility] Hep B, Adol or Pedi 1998 Completed [facility] Dosage 00:00:00 [facility] Polio (IPV/OPV) 1998 Completed [facility] 00:00:00 [facility] DTAP 1998 Completed [facility] 00:00:00 [facility] HIB 4 Dose Schedule 1998 Completed [facility] 00:00:00 [facility] Hep B, Adol or Pedi 1998 Completed [facility] Dosage 00:00:00 [facility] Polio (IPV/OPV) 1998 Completed [facility] 00:00:00 [facility] DTAP 1998 Completed [facility] 00:00:00 [facility] HIB 4 Dose Schedule 1998 Completed [facility] 00:00:00 [facility] Hep B, Adol or Pedi 1998 Completed [facility] Dosage 00:00:00 [facility] Polio (IPV/OPV) 1998 Completed [facility] 00:00:00 [facility] DTAP 1998 Completed [facility] 00:00:00 [facility] HIB 4 Dose Schedule 1998 Completed [facility] 00:00:00 [facility] Hep B, Adol or Pedi 1998 Completed [facility] Dosage 00:00:00 [facility] Polio (IPV/OPV) 1998 Completed [facility] 00:00:00 [facility] DTAP 1998 Completed [facility] 00:00:00 [facility] HIB 4 Dose Schedule 1998 Completed [facility] 00:00:00 [facility] Hep B, Adol or Pedi 1998 Completed [facility] Dosage 00:00:00 [facility] Polio (IPV/OPV) 1998 Completed [facility] 00:00:00 [facility] DTAP 1998 Completed [facility] 00:00:00 [facility] HIB 4 Dose Schedule 1998 Completed [facility] 00:00:00 [facility] Hep B, Adol or Pedi 1998 Completed [facility] Dosage 00:00:00 [facility] Polio (IPV/OPV) 1998 Completed [facility] 00:00:00 [facility] DTAP 1998 Completed [facility] 00:00:00 [facility] HIB 4 Dose Schedule 1998 Completed [facility] 00:00:00 [facility] Hep B, Adol or Pedi 1998 Completed [facility] Dosage 00:00:00 [facility] Polio (IPV/OPV) 1998 Completed [facility] 00:00:00 [facility] DTAP 1998 Completed [facility] 00:00:00 [facility] HIB 4 Dose Schedule 1998 Completed [facility] 00[facility]00:00 [facility] Hep B, Adol or Pedi 1998 Completed [facility] Dosage 00:00:00 [facility] Polio (IPV/OPV) 1998 Completed [facility] 00:00:00 [facility] DTAP 1998 Completed [facility] 00:00:00 [facility] HIB 4 Dose Schedule 1998 Completed [facility] 00:00:00 [facility] Hep B, Adol or Pedi 1998 Completed [facility] Dosage 00:00:00 [facility] Polio (IPV/OPV) 1998 Completed [facility] 00:00:00 [facility] DTAP 1998 Completed [facility] 00:00:00 [facility] HIB 4 Dose Schedule 1998 Completed [facility] 00:00:00 [facility] Hep B, Adol or Pedi 1998 Completed [facility] Dosage 00:00:00 [facility] Polio (IPV/OPV) 1998 Completed [facility] 00:00:00 [facility] DTAP 1998 Completed [facility] 00:00:00 [facility] HIB 4 Dose Schedule 1998 Completed [facility] 00:00:00 [facility] Hep B, Adol or Pedi 1998 Completed [facility] Dosage 00:00:00 [facility] Polio (IPV/OPV) 1998 Completed [facility] 00:00:00 [facility] DTAP 1998 Completed [facility] 00:00:00 [facility] HIB 4 Dose Schedule 1998 Completed [facility] 00:00:00 [facility] Hep B, Adol or Pedi 1998 Completed [facility] Dosage 00:00:00 [facility] Polio (IPV/OPV) 1998 Completed [facility] 00:00:00 [facility] DTAP 1998 Completed [facility] 00:00:00 [facility] HIB 4 Dose Schedule 1998 Completed [facility] 00:00:00 [facility] Hep B, Adol or Pedi 1998 Completed [facility] Dosage 00:00:00 [facility] Polio (IPV/OPV) 1998 Completed [facility] 00:00:00 [facility] DTAP 1998 Completed [facility] 00:00:00 [facility] HIB 4 Dose Schedule 1998 Completed [facility] 00:00:00 [facility] Hep B, Adol or Pedi 1998 Completed [facility] Dosage 00:00:00 [facility] Polio (IPV/OPV) 1998 Completed [facility] 00:00:00 [facility] DTAP 1998 Completed [facility] 00:00:00 [facility] HIB 4 Dose Schedule 1998 Completed [facility] 00:00:00 [facility] Hep B, Adol or Pedi 1998 Completed [facility] Dosage 00:00:00 [facility] Polio (IPV/OPV) 1998 Completed [facility] 00:00:00 [facility] DTAP 1998 Completed [facility] 00:00:00 [facility] HIB 4 Dose Schedule 1998 Completed [facility] 00:00:00 [facility] Hep B, Adol or Pedi 1998 Completed [facility] Dosage 00:00:00 [facility] Polio (IPV/OPV) 1998 Completed [facility] 00:00:00 [facility] DTAP 1998 Completed [facility] 00:00:00 [facility] HIB 4 Dose Schedule 1998 Completed [facility] 00:00:00 [facility] Hep B, Adol or Pedi 1998 Completed [facility] Dosage 00:00:00 [facility] Polio (IPV/OPV) 1998 Completed [facility] 00:00:00 [facility] DTAP 1998 Completed [facility] 00:00:00 [facility] HIB 4 Dose Schedule 1998 Completed [facility] 00:00:00 [facility] Hep B, Adol or Pedi 1998 Completed [facility] Dosage 00:00:00 [facility] Polio (IPV/OPV) 1998 Completed [facility] 00:00:00 [facility] DTAP 1998 Completed [facility] 00:00:00 [facility] HIB 4 Dose Schedule 1998 Completed [facility] 00:00:00 [facility] Hep B, Adol or Pedi 1998 Completed [facility] Dosage 00:00:00 [facility] Polio (IPV/OPV) 1998 Completed [facility] 00:00:00 [facility] DTAP 1998 Completed [facility] 00:00:00 [facility] HIB 4 Dose Schedule 1998 Completed [facility] 00:00:00 [facility] Hep B, Adol or Pedi 1998 Completed [facility] Dosage 00:00:00 [facility] Polio (IPV/OPV) 1998 Completed [facility] 00:00:00 [facility] DTAP 1998 Completed [facility] 00:00:00 [facility] HIB 4 Dose Schedule 1998 Completed [facility] 00:00:00 [facility] Hep B, Adol or Pedi 1998 Completed [facility] Dosage 00:00:00 [facility] Polio (IPV/OPV) 1998 Completed [facility] 00:00:00 [facility] DTAP 1998 Completed [facility] 00:00:00 [facility] HIB 4 Dose Schedule 1998 Completed [facility] 00:00:00 [facility] Hep B, Adol or Pedi 1998 Completed [facility] Dosage 00:00:00 [facility] Polio (IPV/OPV) 1998 Completed [facility] 00:00:00 [facility] DTAP 1998 Completed [facility] 00:00:00 [facility] HIB 4 Dose Schedule 1998 Completed [facility] 00:00:00 [facility] Hep B, Adol or Pedi 1998 Completed [facility] Dosage 00:00:00 [facility] Polio (IPV/OPV) 1998 Completed [facility] 00:00:00 [facility] DTAP 1998 Completed [facility] 00:00:00 [facility] HIB 4 Dose Schedule 1998 Completed [facility] 00:00:00 [facility] Hep B, Adol or Pedi 1998 Completed [facility] Dosage 00:00:00 [facility] Polio (IPV/OPV) 1998 Completed [facility] 00:00:00 [facility] DTAP 1998 Completed [facility] 00:00:00 [facility] HIB 4 Dose Schedule 1998 Completed [facility] 00:00:00 [facility] Hep B, Adol or Pedi 1998 Completed [facility] Dosage 00:00:00 [facility] Polio (IPV/OPV) 1998 Completed [facility] 00:00:00 [facility] DTAP 1998 Completed [facility] 00:00:00 [facility] HIB 4 Dose Schedule 1998 Completed [facility] 00:00:00 [facility] Hep B, Adol or Pedi 1998 Completed [facility] Dosage 00:00:00 [facility] Polio (IPV/OPV) 1998 Completed [facility] 00:00:00 [facility] DTAP 1998 Completed [facility] 00:00:00 [facility] HIB 4 Dose Schedule 1998 Completed [facility] 00:00:00 [facility] Hep B, Adol or Pedi 1998 Completed [facility] Dosage 00:00:00 [facility] Polio (IPV/OPV) 1998 Completed [facility] 00:00:00 [facility] DTAP 1998 Completed [facility] 00:00:00 [facility] HIB 4 Dose Schedule 1998 Completed [facility] 00:00:00 [facility] Hep B, Adol or Pedi 1998 Completed [facility] Dosage 00:00:00 [facility] Polio (IPV/OPV) 1998 Completed [facility] 00:00:00 [facility] DTAP 1998 Completed [facility] 00:00:00 [facility] HIB 4 Dose Schedule 1998 Completed [facility] 00:00:00 [facility] Hep B, Adol or Pedi 1998 Completed [facility] Dosage 00:00:00 [facility] Polio (IPV/OPV) 1998 Completed [facility] 00:00:00 [facility] DTAP 1998 Completed [facility] 00:00:00 [facility] HIB 4 Dose Schedule 1998 Completed [facility] 00:00:00 [facility] Hep B, Adol or Pedi 1998 Completed [facility] Dosage 00:00:00 [facility] Polio (IPV/OPV) 1998 Completed [facility] 00:00:00 [facility] DTAP 1998 Completed [facility] 00:00:00 [facility] HIB 4 Dose Schedule 1998 Completed [facility] 00:00:00 [facility] Hep B, Adol or Pedi 1998 Completed [facility] Dosage 00:00:00 [facility] Polio (IPV/OPV) 1998 Completed [facility] 00:00:00 [facility] DTAP 1998 Completed [facility] 00:00:00 [facility] HIB 4 Dose Schedule 1998 Completed [facility] 00:00:00 [facility] Hep B, Adol or Pedi 1998 Completed [facility] Dosage 00:00:00 [facility] Polio (IPV/OPV) 1998 Completed [facility] 00:00:00 [facility] DTAP 1998 Completed [facility] 00:00:00 [facility] HIB 4 Dose Schedule 1998 Completed [facility] 00:00:00 [facility] Hep B, Adol or Pedi 1998 Completed [facility] Dosage 00:00:00 [facility] Polio (IPV/OPV) 1998 Completed [facility] 00:00:00 [facility] DTAP 1998 Completed [facility] 00:00:00 [facility] HIB 4 Dose Schedule 1998 Completed [facility] 00:00:00 [facility] Hep B, Adol or Pedi 1998 Completed [facility] Dosage 00:00:00 [facility] Polio (IPV/OPV) 1998 Completed [facility] 00:00:00 [facility] DTAP 1998 Completed [facility] 00:00:00 [facility] HIB 4 Dose Schedule 1998 Completed [facility] 00:00:00 [facility] Hep B, Adol or Pedi 1998 Completed [facility] Dosage 00:00:00 [facility] Polio (IPV/OPV) 1998 Completed [facility] 00:00:00 [facility] DTAP 1998 Completed [facility] 00:00:00 [facility] HIB 4 Dose Schedule 1998 Completed [facility] 00:00:00 [facility] Hep B, Adol or Pedi 1998 Completed [facility] Dosage 00:00:00 [facility] Polio (IPV/OPV) 1998 Completed [facility] 00:00:00 [facility] DTAP 1998 Completed [facility] 00:00:00 [facility] HIB 4 Dose Schedule 1998 Completed [facility] 00:00:00 [facility] Hep B, Adol or Pedi 1998 Completed [facility] Dosage 00:00:00 [facility] Polio (IPV/OPV) 1998 Completed [facility] 00:00:00 [facility] DTAP 1998 Completed [facility] 00:00:00 [facility] HIB 4 Dose Schedule 1998 Completed [facility] 00:00:00 [facility] Hep B, Adol or Pedi 1998 Completed [facility] Dosage 00:00:00 [facility] Polio (IPV/OPV) 1998 Completed [facility] 00:00:00 [facility] Hep B, Adol or Pedi [...] 1998 Completed [facility] Dosage 00:00:00 [facility] Hep B, Adol or Pedi 1998 Completed [facility] Dosage 00:00:00 [facility] Hep B, Adol or Pedi 1998 Completed [facility] Dosage 00:00:00 [facility] Hep B, Adol or Pedi 1998 Completed [facility] Dosage 00:00:00 [facility] Hep B, Adol or Pedi 1998 Completed [facility] Dosage 00:00:00 [facility] Hep B, Adol or Pedi 1998 Completed [facility] Dosage 00:00:00 [facility] Hep B, Adol or Pedi 1998 Completed [facility] Dosage 00:00:00 [facility] Hep B, Adol or Pedi 1998 Completed [facility] Dosage 00:00:00 [facility] Hep B, Adol or Pedi 1998 Completed [facility] Dosage 00:00:00 [facility] Hep B, Adol or Pedi 1998 Completed [facility] Dosage 00:00:00 [facility] Hep B, Adol or Pedi 1998 Completed [facility] Dosage 00:00:00 [facility] Vital Signs Vital Name Observation Time Observation Value Comments Source Systolic blood 2022-08-10 131 mm[Hg] Provider [facility] pressure 14:11:00 notified [facility] Diastolic blood 2022-08-10 93 mm[Hg] Provider [facility] f pressure 14:11:00 notified [facility] Heart rate 2022-08-10 83 /min [facility] 14:11:00 [facility] Body temperature 2022-08-10 36.72 Delfina [facility] 14:10:00 [facility] Respiratory rate 2022-08-10 18 /min [facility] 14:10:00 [facility] Body height 2022-08-10 157.5 cm University [facility] 14:10:00 [facility] Body weight 2022-08-10 86.592 kg University of 14:10:00 [facility] BMI 2022-08-10 34.92 kg/m2 University [facility] 14::00 [facility] Oxygen saturation 2022-08-10 98 /min University in Arterial blood 14:10:00 [facility] Pulse oxim[facility] Systolic blood 2022-07-20 134 mm[Hg] [facility] pressure 20:35:00 [facility] Diastolic blood 2022-07-20 97 mm[Hg] University o f pressure 20:35:00 [facility] Heart rate 2022-07-20 66 /min [facility] 20:24:00 [facility] Body temperature 2022-07-20 36.83 Delfina [facility] 20:24:00 [facility] Respiratory rate 2022-07-20 18 /min [facility] 20:24:00 [facility] Body height 2022-07-20 157.5 cm University [facility] 20:24:00 [facility] Body weight 2022-07-20 85.73 kg University of 20:24:00 [facility] BMI 2022-07-20 34.57 kg/m2 [facility] 20:24:00 [facility] Systolic blood 2022-07-06 121 mm[Hg] [facility] pressure 13:52:00 [facility] Diastolic blood 2022-07-06 88 mm[Hg] [facility] f pressure 13:52:00 [facility] Heart rate 2022-07-06 70 /min [facility] 13:52:00 [facility] Body temperature 2022-07-06 36.28 Delfina [facility] 13:51:00 [facility] Respiratory rate 2022-07-06 18 /min [facility] 13:51:00 [facility] Body height 2022-07-06 157.5 cm [facility] 13:51:00 [facility] Body weight 2022-07-06 87 kg [facility] 13:51:00 [facility] BMI 2022-07-06 35.08 kg/m2 [facility] 13:51:00 [facility] Oxygen saturation 2022-07-06 98 /min [facility] in Arterial blood 13:51:00 [facility] Systolic blood 2022-06-25 130 mm[Hg] [facility] pressure 21:34:00 [facility] Diastolic blood 2022-06-25 90 mm[Hg] [facility] o [facility] pressure 21:34:00 [facility] Heart rate 2022-06-25 88 /min [facility] 21:34:00 [facility] Body temperature 2022-06-25 36.83 Delfina [facility] 21:34:00 [facility] Respiratory rate 2022-06-25 18 /min [facility] 21:34:00 [facility] Body height 2022-06-25 157.5 cm University [facility] 21:34:00 [facility] Body weight 2022-06-25 86.637 kg University of 21:34:00 [facility] BMI 2022-06-25 34.93 kg/m2 [facility] 21:34:00 [facility] Systolic blood 2022-06-22 118 mm[Hg] [facility] pressure 23:53:00 [facility] Diastolic blood 2022-06-22 89 mm[Hg] [facility] f pressure 23:53:00 [facility] Heart rate 2022-06-22 74 /min [facility] 23:53:00 [facility] Respiratory rate 2022-06-22 16 /min [facility] 23:53:00 [facility] Oxygen saturation 2022-06-22 98 /min [facility] in Arterial blood 23:53:00 [facility] Body temperature 2022-06-22 37.22 Delfina [facility] 18:35:00 [facility] Body height 2022-06-22 157.5 cm University [facility] 18:35:00 [facility] Body weight 2022-06-22 87.091 kg University of 18:35:00 [facility] BMI 2022-06-22 35.12 kg/m2 [facility] 18:35:00 [facility] Systolic blood 2022-06-22 137 mm[Hg] [facility] pressure 18:17:00 [facility] Diastolic blood 2022-06-22 102 mm[Hg] [facility] o f pressure 18:17:00 [facility] Heart rate 2022-06-22 80 /min University of 18:15:00 [facility] Body temperature 2022-06-22 37.11 Delfina University of 18:15:00 [facility] Respiratory rate 2022-06-22 16 /min University of 18:15:00 [facility] Body height 2022-06-22 157.5 cm University of 18:15:00 [facility] Body weight 2022-06-22 87.363 kg University of 18:15:00 [facility] BMI 2022-06-22 35.23 kg/m2 University of 18:15:00 [facility] Oxygen saturation 2022-06-22 97 /min University in Arterial blood 18:15:00 [facility] by Pulse oximetry Emma Systolic blood 2022-05-17 123 mm[Hg] University of pressure 22:01:00 [facility] Diastolic blood 2022-05-17 85 mm[Hg] University o f pressure 22:01:00 [facility] Heart rate 2022-05-17 70 /min University of 22:01:00 [facility] Body temperature 2022-05-17 36.78 Delfina University of 22::00 [facility] Respiratory rate 2022-05-17 18 /min University of 22:01:00 [facility] Body height 2022-05-17 157.5 cm University of 22::00 [facility] Body weight 2022-05-17 89.359 kg University of 22:01:00 [facility] BMI 2022-05-17 36.03 kg/m2 University of 22:01:00 [facility] Systolic blood 2022-05-11 123 mm[Hg] University of pressure 21:59:00 [facility] Diastolic blood 2022-05-11 88 mm[Hg] University o f pressure 21:59:00 [facility] Heart rate 2022-05-11 69 /min University of 21:59:00 [facility] Body temperature 2022-05-11 37.44 Delfina University of 21:59:00 [facility] Respiratory rate 2022-05-11 16 /min University of 21:59:00 [facility] Body height 2022-05-11 157.5 cm University of 21:59:00 [facility] Body weight 2022-05-11 88.406 kg University of 21:59:00 [facility] BMI 2022-05-11 35.65 kg/m2 University of 21:59:00 [facility] Oxygen saturation 2022-05-11 99 /min University of in Arterial blood 21:59:00 [place] [facility] by Pulse oximetry Branch Systolic blood 2022-03-25 125 mm[Hg] University of pressure 18:55:00 [facility] Diastolic blood 2022-03-25 90 mm[Hg] University o f pressure 18:55:00 [facility] Heart rate 2022-03-25 74 /min University of 18:55:00 [facility] Body temperature 2022-03-25 37.11 Delfina University of 18:55:00 [facility] Respiratory rate 2022-03-25 18 /min University of 18:55:00 [facility] Body height 2022-03-25 157.5 cm University of 18:55:00 [facility] Body weight 2022-03-25 88.179 kg University of 18:55:00 [facility] BMI 2022-03-25 35.56 kg/m2 University of 18:55:00 [facility] Oxygen saturation 2022-03-25 98 /min University of in Arterial blood 18:55:00 [place] [facility] by Pulse oximetry Branch Systolic blood 2022-02-26 134 mm[Hg] University of pressure 19:18:00 [facility] Diastolic blood 2022-02-26 87 mm[Hg] University o f pressure 19:18:00 [facility] Heart rate 2022-02-26 82 /min University of 19:18:00 [facility] Body temperature 2022-02-26 37.11 Delfina University of 19:18:00 [facility] Respiratory rate 2022-02-26 16 /min University of 19:18:00 [facility] Body height 2022-02-26 160 cm University of 19:18:00 [facility] Body weight 2022-02-26 90.266 kg University of 19:18:00 [facility] BMI 2022-02-26 35.25 kg/m2 University of 19:18:00 [facility] Oxygen saturation 2022-02-26 98 /min University of in Arterial blood 19:18:00 [place] [facility] by Pulse oximetry Branch Systolic blood 2022-02-22 134 mm[Hg] University of pressure 22:48:00 [facility] Diastolic blood 2022-02-22 84 mm[Hg] University o f pressure 22:48:00 [facility] Heart rate 2022-02-22 88 /min University of 22:48:00 [facility] Body temperature 2022-02-22 37.22 Delfina University of 22:48:00 [facility] Respiratory rate 2022-02-22 16 /min University of 22:48:00 [facility] Body height 2022-02-22 160 cm University of 22:48:00 [facility] Body weight 2022-02-22 90.311 kg University of 22:48:00 [facility] BMI 2022-02-22 35.27 kg/m2 University of 22:48:00 [facility] Oxygen saturation 2022-02-22 98 /min University in Arterial blood 22:48:00 [facility] by Pulse oximetry Branch Systolic blood 2022-01-13 129 mm[Hg] University of pressure 19:07:00 [facility] Diastolic blood 2022-01-13 89 mm[Hg] University o f pressure 19:07:00 [facility] Heart rate 2022-01-13 80 /min University of 19:07:00 [facility] Body temperature 2022-01-13 36.83 Delfina University of 19:07:00 [facility] Respiratory rate 2022-01-13 18 /min University of 19:07:00 [facility] Body height 2022-01-13 157.5 cm University of 19:07:00 [facility] Body weight 2022-01-13 88.996 kg University of 19:07:00 [facility] BMI 2022-01-13 35.89 kg/m2 University of 19:07:00 [facility] Systolic blood 2021-10-28 121 mm[Hg] University of pressure 15:36:00 [facility] Diastolic blood 2021-10-28 81 mm[Hg] University o f pressure 15:36:00 [facility] Heart rate 2021-10-28 73 /min University of 15:35:00 [facility] Body temperature 2021-10-28 37.22 Delfina University of 15:35:00 [facility] Body weight 2021-10-28 86.183 kg University of 15:35:00 [facility] BMI 2021-10-28 34.74 kg/m2 [place] [address]:35:00 [facility] Procedures Procedure Date / Time Performing Clinician Source Performed EXTERNAL PROVIDER RECORDS 2022-07-21 05:01:00 Doctor Georgina [facility] Name [facility] MEDICATION CORRESPONDENCE 2022-07-01 05:01:00 Doctor Georgina [facility] Name [facility] URINALYSIS MICROSCOPIC 2022-06-25 22:26:00 Chacha Gomez [facility] URINE CULTURE 2022-06-25 21:56:00 Chacha Gomez [facility] POCT URINALYSIS W/O 2022-06-25 00:00:00 Chacha Gomez [facility] SPECIFIC GRAVITY [facility] CT ABDOMEN PELVIS W 2022-06-22 21:03:00 Elijah Hernandez [facility] CONTRAST [facility] LIPASE 2022-06-22 19:30:00 David Elijah [facility] COMP. METABOLIC PANEL 2022-06-22 19:30:00 Elijah Hernandez [facility] ([id number]) [facility] CBC WITH DIFF 2022-06-22 19:30:00 David Elijah [facility] LACTIC ACID WHOLE BLOOD 2022-06-22 19:29:00 Elijah Hernandez [facility] POCT TEST 2022-06-22 19:20:00 Elijah Hernandez [facility] URINALYSIS 2022-06-22 19:17:00 Elijah Hernandez [facility] CONSENT/REFUSAL FOR 2022-06-22 18:28:14 Doctor [facility] DIAGNOSIS AND TREATMENT [facility] CONSENT/REFUSAL FOR 2022-05-21 21:51:33 Doctor [facility] DIAGNOSIS AND TREATMENT [facility] PATIENT QUESTIONNAIRE 2022-05-19 06:01:00 Doctor Georgina [facility] POCT URINALYSIS W/O 2022-05-17 00:00:00 Zully Holt [facility] SPECIFIC GRAVITY [facility] POCT TEST 2022-03-25 20:00:00 [facility] 2022-03-25 19:22:00 [facility] GC, CHLAMYDIA, & M. 2022-03-25 19:22:00 Faith [facility] GENITALIUM AMPLIFIED Medical [facility] ASSAY GALV ONLY - VAGINAL 2022-03-25 19:22:00 [facility] PATHOGENS BY NUCLEIC ACID Medica l Emma TESTING POCT URINALYSIS 2022-03-25 19:02:00 [facility] GC & CHLAMYDIA AMPLIFIED 2022-02-22 23:07:00 [facility] GALV ONLY - VAGINAL 2022-02-22 23:07:00 [facility]LE[facility] POCT URINALYSIS 2022-02-22 22:54:00 B[facility] URINE CULTURE 2022-02-22 22:49:00 Benny [facility] AUTHORIZATION FOR RELEASE 2022-01-19 05:01:00 Doctor Unassigned, [facility] Name Medical Branch AUTHORIZATION FOR RELEASE 2021-12-22 05:01:00 Doctor Unassigned, [facility] [place] [facility] AUTHORIZATION FOR RELEASE 2021-12-14 05:01:00 Doctor Unassigned, [facility] Name Medical Emma Encounters Start End Encounter Admission Attending Care Care Encounter Source Date/Time Date/Time Type Type Clinicians Facility Department ID 2022-10-11 2022-10-11 Outpatient R UNKNOWN, [facility] [id number] Univers 10:20:00 10:20:00 ATTENDING ity [facility] 2022-08-10 2022-08-10 Tobacco Checkout Clerk [facility] UNIVERSIT 1.2.840.114 [id number] Univers 10:00:00 10:15:00 Visit Angel Sams [facility] 350.1.13. 10 ity of [facility] [id number] [address] 2022-08-10 2022-08-10 Outpatient R FLAQUITA [facility] [id number] Univers 09:00:00 09:38:50 ANGEL mata [facility] 2022-08-10 2022-08-10 Office Aneta Joseph [facility] 1.2.840.114 [id number] Univers 09:00:00 09:38:50 Visit Angel Sams [facility] 350.1.13. 10 ity of [facility] 4[place] [phone] [facility] 071 Branch 2022-08-06 2022-08-06 Telemedici [facility] 1.2.840.114 [id number] Univers 16:30:00 17:00:00 ne Visit Chacha GUTIÉRREZ 350.1.13.10 it[place] [id number] [place] [id number] [facility] 2022-08-06 2022-08-06 Outpatient R CHACHA GOMEZ [facility] [id number] Univers 16:30:00 16:30:00 CHACHA GOMEZ olivier [facility] 2022-07-21 2022-07-21 Outpatient R LELO [facility] [id number] Univers 13:00:00 13:00:00 GALINA deras [facility] 2022-07-21 2022-07-21 Orders Doctor POLLOCK 1.2.840.114 [id number] Univers 00:00:00 00:00:00 Only Unassigned, PAIGE 350.1.13.10 ity of [place] [facility] 4.2.7.2.686 [place] [phone] [facility] 009 Branch 2022-07-20 2022-07-20 Outpatient R LILIYA PATEL [facility] U TMB [id number] Univers 15:15:00 15:47:52 LILIYA PATEL itolivier [facility] 2022-07-20 2022-07-[address] [facility] 1.2.840.114 10 [id number] Univers 15:15:00 15:47:52 Visit Liliya márquez 350.1.13.10 [place] [id number] Mt dical [facility] 134 Branch BUILDING 2022-07-20 2022-07-20 Telephone CLEMENTE Joseph 1.2.840.114 10 [id number] Univers 00:00:00 00:00:00 Aneta Olivier HEALTH 350.1.13.[address] [facility] [place].2.[place] [id number] [facility] 071 Emma 2022-07-16 2022-07-16 Telephone PIHLL Joseph 1.2.296.333 [id number] Univers 00:00:00 00:00:00 Aneta GIBSON 350.1.13.10 it y [facility] 4[place].2.[place] [phone] [facility] 009 Branch 2022-07-08 2022-07-08 Outpatient R YANET [facility] [id number] Univers 13:30:00 13:30:00 ZULLY [facility] 2022-07-06 2022-07-06 Tobacco Checkout Clerk [facility] UNIVERSIT 1.2.840.114 [id number] Univers 10:15:00 10:30:00 Visit Angel Sams [facility] 350.1.13. 10 ity of [facility] [id number] [facility] 316 Branch 2022-07-06 2022-07-06 Office Aneta Joseph UNIVER[facility] 1.2.840.114 [id number] Univers 09:00:00 09:30:00 Visit Angel Sams [facility] 350.1.13. 10 ity of [facility] [phone] [facility] 071 Emma 2022-07-06 2022-07-06 Outpatient R FLAQUITA [facility] [id number] Univers 09:00:00 09:00:00 ANGEL mata [facility] 2022-07-06 2022-07-06 [facility] 1.2.840.114 [id number] Univers 00:00:00 00:00:00 Chacha GUTIÉRREZ 350.1.13.10 i ty [place] [id number] [place] 841688 [facility] 2022-07-06 2022-07-06 Telephone Joseph, [facility] 1.2.840.114 10 [id number] Univers 00:00:00 00:00:00 [facility] 350.1.13.[address] [facility] [place] [id number] [address] 2022-07-06 2022-07-06 Telephone Joseph, [facility] 1.2.840.114 10 [id number] Univers 00:00:00 00:00:00 [facility] 350.1.13.[address] [facility] [place] [id number] [address] 2022-07-06 2022-07-06 Telephone Joseph, [facility] 1.2.840.114 10 [id number] Univers 00:00:00 00:00:00 [facility] 350.1.13.[address] [facility] [place].2.[place] [id number] [address] 2022-07-02 2022-07-02 Outpatient R LILIYA PATEL [facility] U TMB [id number] Univers 15:00:00 15:00:00 LILIYA PATEL ity [facility] 2022-07-01 2022-07-01 Telephone [facility] 1.2.840.114 [id number] Univers 00:00:00 00:00:00 Chacha MARLA 350.1.13.10 i ty [facility] 4.[place] [phone] [address] 2022-07-01 2022-07-01 Orders Doctor PHILL 1.2.840.114 [id number] Univers 00:00:00 00:00:00 Only Unassigned, PAIGE 350.1.13.10 ity of [place] [facility] 4.2.7.2.686 [place] [phone] [facility] 009 Emma 2022-06-25 2022-06-25 Outpatient R CHACHA GOMEZ [facility] [id number] Univers 15:30:00 16:28:47 CHACHA GOMEZ itolivier [facility] 2022-06-25 2022-06-25 Office [facility] 1.2.840.114 [id number] Univers 15:30:00 16:28:47 Visit Chacha GUTIÉRREZ 350.1.13.10 i [place] 4.2.7.2.686 [facility] [id number] Mt dicdaniel BURGER 098 [facility] 2022-06-22 2022-06-22 Emergency [facility] E[facility] [id number] Univers 12:41:00 20:34:00 ELIJAH olivier [facility] 2022-06-22 2022-06-22 Emergency [facility] 1.2.388.628 [id number] Univers 12:41:00 20:34:00 Elijah GUTIÉRREZ 350.1.13.10 i [place] 4.2.7.2.686 [facility] [phone] [facility] 084 Emma 2022-06-22 2022-06-22 Nurse Nurse, [facility] 1.2.840.114 [id number] Univers 12:15:00 12:41:54 Visit Unknown, Attending HEALTH 350.1.13.10 ity of Steffany Zapata 4.2.7.2.686 [place] VLADIMIR?BLEA [id number] Mt dical KNEY [address] [facility] OFFICE [facility] 2022-06-22 2022-06-22 Outpatient R SAWYER, [facility] [id number] Univers 12:20:00 12:20:00 ATTENDING esperanza [facility] 2022-06-22 2022-06-22 [facility] [id number] Univers 12:15:00 12:15:00 STEFFANY mata [facility] 2022-06-22 2022-06-22 Orders Doctor POLLOCK 1.2.840.114 [id number] Univers 00:00:00 00:00:00 Only Unassigned, PAIGE 350.1.13.10 ity of [place] [facility] 4.2.7.2.686 [place] [phone] [facility] 009 Emma 2022-06-03 2022-06-03 [facility] [id number] Univers 14:00:00 14:00:00 ZULLY ity [facility] 2022-05-24 2022-05-24 Telephone [facility] 1.2.840.114 [id number] Univers 00:00:00 00:00:00 Zully ALVINAALEX 350.1.13.10 i [place] [id number] Mt dical NAL 134 [facility] 2022-05-21 2022-05-21 [facility] [id number] Univers 15:51:32 23:59:00 ZULLY [facility] 2022-05-21 2022-05-21 [facility] 1.2.840.114 [id number] Univers 15:45:00 23:59:00 Encounter Zully GUTIÉRREZ 350.1.13.10 [place] [id number] [facility] 806 Emma 2022-05-19 2022-05-19 [facility] [id number] Univers 10:00:00 11:06:31 CHACHA itolivier [facility] 2022-05-19 2022-05-19 Telephone [facility] 1.2.840.114 10 [id number] Univers 00:00:00 00:00:00 Zully GUTIÉRREZ 350.1.13.10 i [place] [id number] Mt dical NAL 134 [facility] 2022-05-19 2022-05-19 Orders Doctor POLLOCK 1.2.840.114 [id number] Univers 00:00:00 00:00:00 Only Unassigned, PAIGE 350.1.13.10 [facility] 4.2.7.2.686 [place] [id number] [facility] 009 Emma 2022-05-18 2022-05-18 Case KASIA Holt 1.2.412.148 [id number] Univers 00:00:00 00:00:00 Management Zully PEDIATRIC 350.1.13.10 [place] [id number] [place] [address] Branch CARE CLINIC 2022-05-17 2022-05-17 Outpatient R YANET [facility] [id number] Univers 16:00:00 16:38:57 ZULLY ity [facility] 2022-05-17 2022-05-17 Office Yanet [facility] 1.2.991.955 [id number] Univers 16:00:00 16:38:57 Visit Zully GUTIÉRREZ 350.1.13.10 i ty of [facility] 4.2.7.2.[place] [id number] [address] 2022-05-11 2022-05-11 Office Josey Koch [facility] 1.2.840.114 10 [id number] Univers 16:30:00 16:45:00 Visit HEALTH 350.1.13.10 it y of [place].2.[place] [id number] [address] OFFICE BUILDING 2022-05-11 2022-05-11 Outpatient R JOSEY KOCH [facility] [id number] Univers 16:30:00 16:30:00 ity [facility] 2022-05-05 2022-05-05 Telephone Henrietta Santos [facility] 1.2.840.114 [id number] Univers 00:00:00 00:00:00 Cam ALVINAALEX 350.1.13.10 i ty [facility] 4.[place] [id number] [address] 2022-04-27 2022-04-27 Outpatient R OJSEY KOCH [facility] [id number] Univers 14:00:00 14:00:00 ity [facility] 2022-04-06 2022-04-06 Outpatient JOSEY AWAD [facility] [id number] Univers 08:45:00 08:45:00 ity [facility] 2022-03-28 2022-03-28 Patient Faith [facility] 1.2.840.114 [id number] Univers 00:00:00 00:00:00 Secure Msg Antoniosc HEALTH 350.1.13.10 ity of [place] 4.2.7.2.686 [place] VLADIMIR?BLEA [id number] [facility] 370 Emma MEDICAL OFFICE [facility] 2022-03-25 2022-03-25 Tobacco Checkout Clerk Lab, [facility] 1.2.840.1 [id number] Univers 13:30:00 13:45:00 Visit Mara Cuevas HEALTH 350.1.13.10 ity of [place] 4.2.7.2.686 [place] VLADIMIR?BLEA [phone] [facility] [address] [facility] OFFICE [facility] 2022-03-25 2022-03-25 Outpatient R DORIANEvaristo, [facility] [id number] Univers 12:40:00 13:23:47 [facility] 2022-[facility]-25 2022-03-25 Urgent Mara Cuevas [facility] 1.2.840.114 [id number] Univers 12:40:00 13:23:47 Care Unknown, [facility] HEALTH 350.1.13.10 ity of [place] 4.2.7.2.686 [place] VLADIMIR?BLEA [phone] [address] OFFICE [facility] 2022-03-25 2022-03-25 Patient Faith [facility] 1.2.840.114 [id number] Univers 00:00:00 00:00:00 Secure [facility] Mara HEALTH 350.1.13.10 ity of [place] 4.2.7.2.686 [place] VLADIMIR?BLEA [id number] [address] OFFICE [facility] 2022-03-24 2022-03-24 Outpatient R UNKNOWN, [facility] [id number] Univers 17:20:00 17:20:00 ATTENDING ity [facility] 2022-02-26 2022-02-26 Outpatient R JEEVAN, [facility] [id number] Univers 13:00:00 13:40:20 LORENZA deras [facility] 2022-02-26 2022-02-26 Urgent Lorenza Chew [facility] 1.2.840 .114 [id number] Univers 13:00:00 13:40:20 Care Unknown, Attending HEALTH 350.1.13.10 [facility] 4.2.7.2.686 [place] VLADIMIR?BLEA [id number] [address] OFFICE [facility] 2022-02-22 2022-02-22 Outpatient R KACEY [facility] [id number] Univers 16:40:00 17:15:39 ROSA mata o braeden [facility] 2022-02-22 2022-02-22 Urgent Kacey Rosa [facility] 1.2.840. 114 [id number] Univers 16:40:00 17:15:39 Care Unknown, Attending HEALTH 350.1.13.10 ity of [place] 4.2.7.2.686 [place] VLADIMIR?BLEA [id number] [address] 2022-01-19 2022-01-19 Orders Doctor PHILL 1.2.840.114 [id number] Univers 00:00:00 00:00:00 Only Unassigned, PAIGE 350.1.13.10 ity of [place] [facility] 4.2.7.2.686 [place] as [id number] [address] 2022-01-13 2022-01-13 Tobacco Checkout Clerk 2, Adc Lab [facility] 1.2.840.114 [id number] Univers 15:00:00 15:15:00 Visit Henrietta Santos 350.1.13.10 ity of [facility] 4.2.7.2.[place] [id number] Mt dical NAL 353 [facility] 2022-01-13 2022-01-13 Office Henrietta Santos [facility] 1.2.594.458 [id number] Univers 14:30:00 14:30:00 Visit Edis GUTIÉRREZ 350.1.13.10 i ty of [facility] 4.2.7.2.[place] [id number] Mt dical NAL 134 [facility] 2022-01-13 2022-01-13 Outpatient R HENRIETTA SANTOS [facility] [id number] Univers 14:30:00 14:19:51 ity [facility] 2022-01-05 2022-01-05 Outpatient R TAD [facility] [id number] Univers 09:10:00 09:10:00 LOKESH mata [facility] 2021-12-28 2021-12-28 Outpatient R ELENA [facility] [id number] Univers 15:00:00 15:00:00 ROSMELISSANDA ity o f [facility] 2021-12-28 2021-12-28 Outpatient R ELENA [facility] [id number] Univers 15:00:00 15:00:00 ROSMELISSANDA ity o f [facility] 2021-12-28 2021-12-28 Outpatient R ELENA [facility] [id number] Univers 15:00:00 15:00:00 [facility] 2021-12-28 2021-12-28 Outpatient R ELENA [facility] [id number] Univers 15:00:00 15:00:00 LINDANDA ity o [facility] 2021-12-22 2021-12-22 Orders Doctor PHILL 1.2.840.114 [id number] Univers 00:00:00 00:00:00 Only Unassigned, PAIGE 350.1.13.10 ity of [place] [facility] 4.2.7.2.686 [place] as [phone] [address] 2021-12-14 2021-12-14 Orders Doctor POLLOCK 1.2.840.114 [id number] Univers 00:00:00 00:00:00 Only Unassigned, PAIGE 350.1.13.10 ity of [place] [facility] 4.2.7.2.686 [place] as [phone] [address] 2021-12-11 2021-12-11 Terell Mishra [facility] 1.2.468.650 [id number] Univers 00:00:00 00:00:00 Lokesh ESCOBAR 350.1.13.10 it[place] [phone] Mt dical BUCK 198 [facility] 2021-10-28 2021-10-28 Office TomHenrietta [facility] 1.2.857.889 [id number] Univers 10:00:00 11:33:53 Visit Edis GUTIÉRREZ 350.1.13.10 i ty aretha [facility] [place] [phone] Mt geedaniel NAL 134 [facility] 2021-10-28 2021-10-28 Outpatient R TOM HENRIETTA [facility] [id number] Univers 10:00:00 11:33:53 ity [facility] 2021-10-28 2021-10-28 Outpatient R TOM [facility] [id number] Univers 10:00:00 10:00:00 [facility] 2021-10-21 2021-10-21 Outpatient R TOM [facility] [id number] Univers 15:30:00 15:30:00 [facility] 2021-10-12 2021-10-12 Outpatient R TAD [facility] [id number] Univers 13:50:00 13:50:00 LOKESH [facility] 2021-10-09 2021-10-09 Imm/Inj Vaccine, [facility] Family Medicine [facility] 1.2.840.114 [id number] Univers 15:00:00 15:04:02 Visit Moe Marie 350.1.13 .10 itolivier [facility] [place] [phone] Mt geedaniel BURGER 044 [facility] 2021-10-09 2021-10-09 Outpatient R FRANK [facility] [id number] Univers 15:00:00 15:00:00 MOE olivier [facility] 2021-10-09 2021-10-09 Outpatient R FRANK [facility] [id number] Univers 15:00:00 15:00:00 MOE [facility] 2021-10-08 2021-10-08 Office Tom [facility] 1.2.172.708 [id number] Univers 16:00:00 16:57:27 Visit Edis GUTIÉRREZ 350.1.13.10 i ty of [place].2.7.2.[place] [phone] Mt dical NAL [address] [place] [address] 2021-10-08 2021-10-08 Outpatient R HENRIETTA SANTOS [facility] [id number] Univers 16:00:00 16:57:27 ity [facility] 2021-10-08 2021-10-08 Outpatient R TOM HENRIETTA [facility] [id number] Univers 08:15:00 08:15:00 ity of [facility] 2021-10-08 2021-10-08 [facility] 1.2.840.114 [id number] Univers 00:00:00 00:00:00 Secure Msg Rachelselvin UGTIÉRREZ 350.1.13.10 ity of [facility] 4.2.7.2.[place] [phone] Mt dical NAL [address] [place] [address] 2021-10-07 2021-10-07 Outpatient R TOM HENRIETTA [facility] [id number] Univers 10:30:00 11:44:37 ity [facility] 2021-10-07 2021-10-07 Office Tom [facility] 1.2.816.694 [id number] Univers 10:30:00 11:44:37 Visit Cam MARLA 350.1.13.10 i ty of [place] 4.2.7.2.[place] [id number] Mt dical NAL [address] [place] [address] 2021-10-07 2021-10-07 Telephone [facility] 1.2.840.114 [id number] Univers 00:00:00 00:00:00 Cam MARLA 350.1.13.10 i ty of [place] 4.2.7.2.686 [place] [id number] Mt dical NAL [address] [place] [address] 2021-10-07 2021-10-07 Patient Laura [facility] 1.2.840.114 [id number] Univers 00:00:00 00:00:00 Secure Msg Rachelselvin GUTIÉRREZ 350.1.13.10 ity of [place] 4.2.7.2.[place] [phone] Mt dical NAL 134 [facility] 2021-10-06 2021-10-06 Outpatient R HENRIETTA SANTOS [facility] CONSULTANT [id number] Univers 06:17:00 10:43:00 ity of [facility] 2021-10-06 2021-10-06 Hospital Henrietta Santos [facility] 1.2.840.114 [id number] Univers 06:17:00 10:43:00 Encounter Edis GUITÉRREZ 350.1.13.10 ity of [place] 4.2.7.2.686 [place] SUR[place]ICAL [id number] [facility] 071 Emma 2021-10-06 2021-10-06 Outpatient R HENRIETTA SANTOS [facility] CONSULTANT [id number] Univers 06:17:00 10:43:00 ity of [facility] 2021-10-06 2021-10-06 Surgery Tom [facility] 1.2.975.034 [id number] Univers 07:50:00 09:26:00 Edis GUTIÉRREZ 350.1.13.10 i ty of [facility] 4.2.7.2.686 [place]ICAL [id number] [facility] 020 Emma 2021-10-06 2021-10-06 Anesthesia Yvon Garcia [place] 1.2.840.11 [id number] Univers 07:53:00 09:11:00 Event Phill Louie 350.1.13.10 ity of [place] 4.2.7.2.[place]ICAL [id number] [facility] 020 Emma 2021-10-05 2021-10-05 Tobacco Checkout Clerk Pob, Adc Lab Main [facility] 1.2.8 40.114 [id number] Univers 14:00:00 14:15:00 Visit Henrietta Santos Edis GUTIÉRREZ 350.1.13.10 ity of [place] 4.2.7.2.[place] [id number] Mt dical NAL 353 [facility] 2021-10-05 2021-10-05 Tobacco Checkout Clerk 1, Adc Lab [facility] 1.2.840.114 [id number] Univers 13:00:00 13:15:00 Visit Henrietta Santos 350.1.13.10 [place].2.7.2.[place] [phone] [facility] [address] 2021-10-05 2021-10-05 Outpatient R HENRIETTA SANTOS [facility] [id number] Univers 13:00:00 13:00:00 ity [facility] 2021-10-05 2021-10-05 Orders Doctor POLLOCK 1.2.840.114 [id number] Univers 00:00:00 00:00:00 Only Unassigned, PAIGE 350.1.13.10 ity of [facility] 4.2.7.2.686 [place] as [phone] [facility] [address] 2021-10-01 2021-10-01 Outpatient R CORNELL [facility] [id number] Univers 15:15:00 15:15:00 BHARGAV ity [facility] 2021-09-23 2021-09-23 Outpatient R [facility] [id number] Univers 14:00:00 14:00:00 ity [facility] 2021-09-23 2021-09-23 Outpatient R [facility] [id number] Univers 14:00:00 14:00:00 ity [facility] 2021-09-18 2021-09-18 Outpatient R CORNELL [facility] [id number] Univers 08:00:00 08:00:00 BHARGAV ity [facility] 2021-09-15 2021-09-15 Outpatient R HENRIETTA SANTOS [facility] [id number] Univers 14:15:00 15:09:42 ity [facility] 2021-09-15 2021-09-15 Office Tom [facility] 1.2.226.871 [id number] Univers 14:15:00 15:09:42 Visit Edis GUTIÉRREZ 350.1.13.10 i ty of [facility] 4.2.7.2.686 [place] [facility] [phone] Mt dical [address] 2021-09-15 2021-09-15 Outpatient R HENRIETTA SANTOS [facility] [id number] Univers 14:15:00 14:15:00 ity [facility] 2021-09-02 2021-09-02 Imm/Inj Vaccine, Adc Family Medicine [facility] 1.2.840.114 [id number] Univers 14:00:00 14:11:11 Visit Moe Marie 350.1.13 .10 [place].2.[place] [id number] Mt dical NAL 044 [facility] 2021-09-02 2021-09-02 Outpatient R FRANK [facility] [id number] Univers 14:00:00 14:00:00 MOE itolivier [facility] 2021-08-27 2021-08-27 Outpatient R CORNELL [facility] [id number] Univers 15:15:00 15:15:00 BHARGAV [facility] 2021-08-26 2021-08-26 Case Tom [facility] 1.2.501.429 [id number] Univers 00:00:00 00:00:00 Management Edis GUTIÉRREZ 350.1.13.10 it[place]2.[place].2.[place] [id number] Mt dical NAL 134 [facility] 2021-08-24 2021-08-24 Outpatient R HENRIETTA SANTOS [facility] [id number] Univers 10:00:00 11:05:48 ity of [facility] 2021-08-24 2021-08-24 Initial Henrietta Santos [facility] 1.2.946.905 [id number] Univers 10:00:00 11:05:48 Edis GUTIÉRREZ 350.1.13.10 ity of [place]2.7.2.[place] [phone] Mt dical NAL 134 [facility] 2021-08-24 2021-08-24 Orders Doctor POLLOCK 1.2.840.114 [id number] Univers 00:00:00 00:00:00 Only Unassigned, PAIGE 350.1.13.10 ity of [place] [facility] 4.2.7.2.686 [place] as [phone] [address] 2021-08-10 2021-08-10 Outpatient R TAD [facility] [id number] Univers 13:06:58 23:59:00 LOKESH mata [facility] 2021-08-10 2021-08-10 Outpatient R TAD [facility] [id number] Univers 13:06:58 23:59:00 LOKESH mata [facility] 2021-08-10 2021-08-10 Hospital [facility] 1.2.840.114 [id number] Univers 13:06:58 23:59:00 Encounter Lokesh Loera SPECIALTY 350.1.13.10 ity of [place].2.[place] AT [phone] Mt gilberto JANE 809 [facility] 2021-08-10 2021-08-10 Office [facility] 1.2.840.114 [id number] Univers 13:50:00 13:50:00 Visit Lokesh Loera SPECIALTY 350.1.13.10 ity of [place].2.[place] AT [phone] Mt geedaniel JANE 198 [facility] 2021-08-06 2021-08-06 Telephone [facility] 1.2.840.114 [id number] Univers 00:00:00 00:00:00 Jocelyn Gray STOCK UNLOADER 350.1.13.10 ity of REGIONAL 4.2.7.2.686 [place] as MATERNAL [phone] Med ical & CHILD 107 [facility] 2021-07-31 2021-07-31 Outpatient Davion HOOK [facility] [id number] Univers 13:15:00 13:33:04 HETAL mata [facility] 2021-07-31 2021-07-31 Nurse Meliza-Rmchp Nurse Vst, Fp Nrpt Pills [facility] 1.2.840.114 [id number] Univers 13:15:00 13:33:04 Visit Hetal Hook STOCK UNLOADER 350.1.13.10 ity of [place] 4.2.7.2.686 [place] as MATERNAL [phone] Med ical & CHILD 125 [facility] 2021-07-31 2021-07-31 Outpatient Davion HOOK [facility] [id number] Univers 13:15:00 13:15:00 HETAL mata [facility] 2021-07-30 2021-07-30 Outpatient Davion INFANTE [facility] [id number] Univers 16:20:00 16:20:00 PHILL mata [facility] 2021-07-30 2021-07-30 Office [facility] 1.2.768.580 [id number] Univers 16:20:00 16:20:00 Visit Phill PRIMARY 350.1.13.10 it y of [place] 4[place]2.7.2.[place] [id number] Mt dical 198 [place] 2021-07-30 2021-07-30 Office [facility] 1.2.503.175 [id number] Univers 16:20:00 16:20:00 Visit Phill PRIMARY 350.1.13.10 it y of [place] 4.2.7.2.[place] [id number] Mt dicpr 198 [place] 2021-07-30 2021-07-30 Outpatient Davion INFANTE [facility] [id number] Univers 16:20:00 16:07:54 PHILL mata [facility] 2021-07-24 2021-07-24 Outpatient Davion ERAZO [facility] [id number] Univers 17:20:00 17:20:00 ROSA esperanza snyder [facility] 2021-07-16 2021-07-16 Outpatient Davion INFANTE [facility] [id number] Univers 15:00:00 15:00:00 PHILL mata [facility] 2021-05-26 2021-05-26 Outpatient Davion MARIE [facility] [id number] Univers 09:20:00 09:20:00 MOE mata [facility] 2021-05-26 2021-05-26 Outpatient Davion MARIE [facility] [id number] Univers 09:20:00 09:20:00 MOE mata [facility] 2021-05-25 2021-05-25 Outpatient Davion PARKER [facility] [id number] Univers 15:00:00 15:46:14 AMANDA deras [facility] 2021-05-25 2021-05-25 Office Elena ORPATTIE 1.2.840.114 [id number] Univers 15:00:00 15:46:14 Visit Lindaalivia R STOCK UNLOADER 350.1.13.10 ity of [place] 4.2.7.2.686 [place] as MATERNAL [id number] [facility] & CHILD [address] [place] [address] 2021-05-25 2021-05-25 Outpatient R ELENA [facility] [id number] Univers 15:00:00 15:00:00 ROSHUNDA ity o f [facility] 2021-05-25 2021-05-25 Orders Doctor PHILL 1.2.840.114 [id number] Univers 00:00:00 00:00:00 Only Unassigned, PAIGE 350.1.13.10 ity of [place] [facility] 4.2.7.2.686 [place] as [phone] [address] 2021-05-19 2021-05-19 Office Josey Koch [facility] 1.2.840.114 [id number] Univers 16:45:00 17:00:00 Visit [facility] 350.1.13.10 it y of [place].2.[place] [id number] [address] OFFICE BUILDING 2021-05-19 2021-05-19 Outpatient R JOSEY KOCH [facility] [id number] Univers 16:45:00 16:45:00 ity of [facility] 2021-05-05 2021-05-05 Telephone Elena [facility] 1.2.192.442 [id number] Univers 00:00:00 00:00:00 Lindajoesph R STOCK UNLOADER 350.1.13.10 ity of [place] 4.2.7.2.686 [place] as MATERNAL [phone] [facility] & [address] 2021-05-05 2021-05-05 Telephone Elena [facility] 1.2.797.876 [id number] Univers 00:00:00 00:00:00 Rosmelissanda R STOCK UNLOADER 350.1.13.10 ity of [place] 4.2.7.2.686 [place] as MATERNAL [id number] [facility] & CHILD [address] [place] [address] 2021-04-30 2021-04-30 Outpatient R PARKER [facility] [id number] Univers 15:30:00 16:02:20 LINDAMELISSAJERRICACodie celiney o f [facility] 2021-04-30 2021-04-30 Office [facility] 1.2.840.114 [id number] Univers 15:30:00 16:02:20 Visit Amanda Ricardo STOCK UNLOADER 350.1.13.10 ity of [place] 4.2.7.2.686 [place] as MATERNAL [phone] Med ical & CHILD [address] [place] [address] 2021-04-28 2021-04-28 Outpatient R JOSEY KOCH [facility] [id number] Univers 15:45:00 15:45:00 ity of [facility] 2021-04-04 2021-04-04 [facility] [id number] Univers 08:43:04 23:59:00 PHILL itolivier [facility] 2021-04-04 2021-04-04 [facility] 1.2.840.114 [id number] Univers 08:43:04 23:59:00 Encounter Phill SPECIALTY 350.1.13.10 it[place]2.[place] AT [id number] Mt geedaniel JOSE [address] [place] [address] 2021-04-04 2021-04-04 [facility] 1.2.840.114 [id number] Univers 08:42:06 08:42:06 Encounter Phill SPECIALTY 350.1.13.10 ity of [place].2.[place] AT [id number] Mt gilberto JANE 803 [facility] 2021-03-20 2021-03-20 [facility] 1.2.840.114 [id number] Univers 00:00:00 00:00:00 Phill PRIMARY 350.1.13.10 it y of [place] 4[place]2.7.2.686 [place] [phone] Mt gilberto [address] [place] [address] 2021-03-05 2021-03-05 Outpatient R ARELIS [facility] [id number] Univers 15:40:00 15:40:00 PHILL olivier [facility] 2021-02-26 2021-02-26 Outpatient R ARELIS [facility] [id number] Univers 15:30:00 15:30:00 PHILL mata [facility] 2021-02-19 2021-02-19 Outpatient R ARELIS [facility] [id number] Univers 15:50:00 15:50:00 PHILL olivier [facility] 2021-01-20 2021-01-20 Outpatient Davion HOOK [facility] [id number] Univers 13:15:00 13:15:00 HETALCALEB mata [facility] 2021-01-12 2021-01-12 [facility] [id number] Univers 09:15:00 09:15:00 JOCELYN mata o f [facility] 2021-01-08 2021-01-08 [facility] 1.2.840.114 [id number] Univers 00:00:00 00:00:00 Jocelyn C STOCK UNLOADER 350.1.13.10 ity of [facility] 4.2.7.2.686 Golden as MATERNAL [phone] [facility] & CHILD [address] [place] [address] 2021-01-07 2021-01-07 Telephone [facility] 1.2.840.114 [id number] Univers 00:00:00 00:00:00 Jocelyn C STOCK UNLOADER 350.1.13.10 ity of [facility] 4.2.7.2.686 Golden as MATERNAL [id number] [facility] & CHILD [address] [place] [address] 2021-01-05 2021-01-05 Office [facility] [place] 1.2.565.955 [id number] Univers 13:58:32 14:20:28 Visit Jocelyn C STOCK UNLOADER 350.1.13.10 ity of [facility] 4.2.7.2.686 Golden as MATERNAL [phone] [facility] & CHILD [address] [place] [address] 2021-01-05 2021-01-05 Outpatient R CHRISTINA [facility] [id number] Univers 13:45:00 13:45:00 JOCELYN deras [facility] 2021-01-05 2021-01-05 Outpatient R CHRISTINA, [facility] [id number] Univers 11:00:00 11:00:00 JOCELYN deras [facility] 2020-12-29 2020-12-29 Office [facility] [place] 1.2.554.319 [id number] Univers 08:45:08 09:15:08 Visit [facility] C STOCK UNLOADER 350.1.13.10 ity of [facility] 4.2.7.2.686 [place] as MATERNAL [id number] [facility] & CHILD [address] [place] [address] 2020-12-29 2020-12-29 Office [facility] [place] 1.2.018.[id number] [facility] 08:45:08 09:15:08 Visit [facility] C STOCK UNLOADER 350.1.13.10 ity of [facility] 4.2.7.2.686 Golden as MATERNAL [phone] [facility] & [address] 2020-12-29 2020-12-29 Outpatient R CHRISTINA, [facility] [id number] Univers 08:45:00 08:45:[address] [facility] 2020-12-29 2020-12-29 Orders Doctor PHILL 1.2.840.114 [id number] Univers 00:00:00 00:00:00 Only Unassigned, PAIEG 350.1.13.10 ity of [place] [facility] 4.2.7.2.686 Golden as [phone] [address] 2020-12-29 2020-12-29 Orders Doctor PHILL 1.2.840.114 [id number] Univers 00:00:00 00:00:00 Only Unassigned, PAIGE 350.1.13.10 ity of [place] [facility] 4.2.7.2.686 Golden as [phone] [address] 2020-12-19 2020-12-19 Office [facility] 1.2.409.401 [id number] Univers 15:55:19 16:24:05 Visit Jocelyn C STOCK UNLOADER 350.1.13.10 ity of REG[place]AL 4.2.7.2.686 Golden as MATERNAL [id number] [facility] & CHILD [address] [place] [address] 2020-12-19 2020-12-19 Office [facility] 1.2.735.649 [id number] Univers 15:55:19 16:24:05 Visit Jocelyn C STOCK UNLOADER 350.1.13.10 ity of [place] 4.2.7.2.686 [place] as MATERNAL [id number] [address] 2020-12-19 2020-12-19 Out[facility] [id number] Univers 16:00:00 16:00:[address] [facility] 2020-12-09 2020-12-09 Outpatient R [facility] [id number] Univers 13:00:00 13:00:00 ity [facility] 2020-11-25 2020-11-25 Office [facility] 1.2.840.114 [id number] 11:48:14 12:04:05 Visit [facility] R STOCK UNLOADER 350.1.13.10 REGIONAL 4.2.7.2.686 MATERNAL [phone] & [address] 2020-11-25 2020-11-25 Office [facility] 1.2.840.114 [id number] Univers 11:48:14 12:04:05 [facility] STOCK UNLOADER 350.1.13.10 ity of [facility] 4.2.7.2.686 Golden as MATERNAL [phone] [address] 2020-11-25 2020-11-25 Outpatient [facility] [id number] Univers 12:00:00 12:00:[address] [facility] 2020-11-12 2020-11-12 Outpatient R CHRISTINA [facility] [id number] Univers 09:30:00 09:30:00 JOCELYN deras [facility] 2020-11-07 2020-11-07 Outpatient R CORNELL [facility] [id number] Univers 08:45:00 08:45:00 BHARGAV ity [facility] 2020-10-22 2020-10-22 Telephone [facility] 1.2.840.114 [id number] Univers 00:00:00 00:00:00 Jocelyn Gray STOCK UNLOADER 350.1.13.10 [facility]y [facility] 4.2.7.2.686 [place] as MATERNAL [id number] [facility] & CHILD [address] [place] [address] 2020-10-15 2020-10-15 Urgent Provider, [facility] 1.2.840.114 [id number] Univers 12:52:51 13:29:22 Care Evi Rodriguez [facility] 350.1.13.10 [facility] 4.2.7.2.686 [place] as Professio [id number] [address] Office [facility] [address] [facility] 2020-10-15 2020-10-15 Outpatient [facility] [id number] Univers 13:00:00 13:00:00 EVI [facility] 2020-10-13 2020-10-13 Outpatient [facility] [id number] Univers 14:15:00 14:15:00 JOCELYN mata o f [facility] 2020-10-08 2020-10-08 Outpatient P [facility] [id number] Univers 13:00:00 13:00:00 [facility] 2020-10-06 2020-10-06 Outpatient R [facility] [id number] Univers 11:00:00 11:00:00 [facility] 2020-10-02 2020-10-02 Telephone [facility] 1.2.840.114 [id number] Univers 00:00:00 00:00:00 Jocelyn Gray STOCK UNLOADER 350.1.13.10 ity of [facility] 4.2.7.2.686 Golden as MATERNAL [id number] [facility] & CHILD [address] [place] [address] 2020-10-01 2020-10-01 Tobacco Checkout Clerk Lab, Dick-Rmjvp [facility] 1.2.840. 114 [id number] Univers 10:23:48 10:38:48 Visit Jocelyn Vasquez STOCK UNLOADER 350.1.13. 10 ity of [facility] 4.2.7.2.686 [place] as MATERNAL [id number] [address] 2020-10-01 2020-10-01 Outpatient R [facility] [id number] Univers 10:30:00 10:30:00 ity [facility] 2020-09-30 2020-09-30 Office Josey Koch [facility] 1.2.840.114 [id number] Univers 13:53:34 14:08:34 Visit Health 350.1.13.10 it y of [place] 4.2.7.2.686 [place] [phone] [address] Office Building 2020-09-30 2020-09-30 Outpatient R JOSEY KOCH [facility] [id number] Univers 14:00:00 14:00:00 ity [facility] 2020-09-29 2020-09-29 [facility] 1.2.854.463 [id number] Univers 12:48:08 13:43:12 Visit Jocelyn Gray STOCK UN[employer] [id number] ity [facility] [id number] [place] MATERNAL [phone] [address] 2020-09-29 2020-09-29 Outpatient R CHRISTINA [facility] [id number] Univers 12:45:00 12:45:00 JOCELYN ity o f [facility] 2020-09-23 2020-09-23 Outpatient R CHRISTINA [facility] [id number] Univers 09:00:00 09:00:00 JOCELYN ity o f [facility] 2020-09-13 2020-09-13 Nurse China Fine [id number] Univers 00:00:00 00:00:00 Triage PAIGE [id number] it y of HOSPITAL [id number] [place] [id number] [address] 2020-09-12 2020-09-12 Telephone Josey Koch [facility] [id number] Univers 00:00:00 00:00:00 Health [id number] [place] [id number] [place] [phone] [address] Office Building 2020-09-03 2020-09-03 Outpatient R [facility] [id number] Univers 08:15:00 08:15:00 ity of [facility] 2020-09-01 2020-09-01 [facility] [id number] Univers 07:45:00 07:45:00 JOCELYN deras [facility] 2020-08-28 2020-08-28 [facility] [id number] Univers 00:00:00 00:00:00 Jocelyn C [employer] UN[employer] [id number] ity of [place] [id number] [place] MATERNAL [phone] [facility] & CHILD [address] [place] [address] 2020-08-27 2020-08-27 Telephone [facility] [place] 1.2.840.114 [id number] Univers 00:00:00 00:00:00 Jocelyn C STOCK UNLOADER 350.1.13.10 ity of REGIONAL 4.2.7.2.686 [place] as MATERNAL [id number] [facility] & [address] 2020-08-26 2020-08-26 Initial [facility] 1.2.343.944 [id number] Univers 14:28:27 15:44:22 Jocelyn C STOCK UNLOADER 350.1.13.10 ity of Visit REGIONAL 4.2.7.2.686 [place] as MATERNAL [id number] [facility] & [address] 2020-08-26 2020-08-26 Outpatient R CHRISTINA [facility] [id number] Univers 14:00:00 14:00:00 JOCELYN deras [facility] 2020-08-26 2020-08-26 Orders Doctor POLLOCK 1.2.840.114 [id number] Univers 00:00:00 00:00:00 Only Unassigned, PAIGE 350.1.13.10 ity of [place] [facility] 4.2.7.2.686 [place] as [phone] [address] 2020-07-22 2020-07-22 Outpatient R ELENA [facility] [id number] Univers 09:45:00 09:45:00 CARROLA esperanza o [facility] 2020-07-22 2020-07-22 [facility] [id number] Univers 09:45:00 09:45:00 AMANDA bergery o [facility] 2020-07-22 2020-07-22 Office [facility] 1.2.840.114 [id number] Univers 09:25:38 09:43:35 Visit Lindajoesph Ricardo STOCK UNLOADER 350.1.13.10 ity of [facility] 4.2.7.2.686 [place] as MATERNAL [phone] [facility] ical & CHILD [address] [place] [address] 2020-07-08 2020-07-08 Office [facility] 1.2.840.114 [id number] Univers 14:20:22 14:44:34 Visit [facility] Davion STOCK UNLOADER 350.1.13.10 ity of [facility] 4.2.7.2.686 [place] as MATERNAL [phone] [facility] CHILD [address] [place] [address] 2020-07-08 2020-07-08 [facility] [id number] Univers 14:15:00 14:15:00 ROSMELISSANDA ity o [facility] 2020-07-08 2020-07-08 Patient [facility] 1.2.840.114 [id number] Univers 00:00:00 00:00:00 Outreach Moe PRIMARY 350.1.13.10 i ty of [facility] [place]2.7.2.[place] [phone] [address] 2020-06-10 2020-06-10 Outpatient R CHRISTINA [facility] [id number] Univers 09:30:00 09:30:[address] [facility] 2020-05-21 2020-05-21 Office Elena [facility] 1.2.840.114 [id number] Univers 12:48:35 13:25:07 Visit Raghujerricacodie Ricardo STOCK UNLOADER 350.1.13.10 ity of [facility] 4.2.7.2.686 [place] as MATERNAL [id number] [facility] CHILD [address] [place] [address] 2020-05-21 2020-05-21 Outpatient [facility] [id number] Univers 12:45:00 12:45:00 RAGHUJERRICACodie esperanza claudio deras [facility] 2020-05-21 2020-05-21 Orders Doctor PHILL 1.2.840.114 [id number] Univers 00:00:00 00:00:00 Only Unassigned, PAIGE 350.1.13.10 ity of [place] [facility] 4.2.7.2.686 [place] as [phone] [address] 2020-03-18 2020-03-18 Nurse Visit, [facility] Nurse [facility] 1.2 .840.114 [id number] Univers 10:31:12 10:55:32 Visit Linda Parkermahnazcodie Davion STOCK UNLOADER 350.1.13.10 ity of [facility] 4.2.7.2.686 [place] as MATERNAL [phone] [facility] & [address] 2020-03-18 2020-03-18 Outpatient R [facility] [id number] Univers 10:30:00 10:30:00 ity of [facility] 2020-03-18 2020-03-18 Outpatient [facility] [id number] Univers 10:30:00 10:30:00 RAGHUJOESPH mata claudio deras [facility] 2020-03-10 2020-03-10 Telephone Josafatjim [facility] 1.2.840.114 [id number] Univers 00:00:00 00:00:00 Jocelyn Gray STOCK UNLOADER 350.1.13.10 ity [facility] 4.2.7.2.686 [place] as MATERNAL [phone] [facility] CHILD [address] [place] [address] 2020-03-05 2020-03-05 Office [facility] 1.2.308.705 [id number] Univers 15:35:31 16:27:42 Visit Jocelyn C STOCK UNLOADER 350.1.13.10 ity of [facility] 4.2.7.2.686 [place] as MATERNAL [phone] [facility] & [address] 2020-03-05 2020-03-05 Outpatient R AKINSIPE, [facility] [id number] Univers 15:30:00 15:30:00 JOCELYNDERA mata o [facility] 2020-03-05 2020-03-05 Outpatient R AKINSIPE, [facility] [id number] Univers 15:30:00 15:30:00 JOCELYN mata o [facility] 2020-02-26 2020-02-26 Orders Doctor PHILL 1.2.840.114 [id number] Univers 00:00:00 00:00:00 Only Unassigned, PAIGE 350.1.13.10 ity of [place] [facility] 4.2.7.2.686 [place] as [phone] [address] 2020 2020 Outpatient R ARELIS, [facility] [id number] Univers 10:30:00 10:30:00 PHILL mata of [facility] 2020-02-08 2020-02-08 Office [facility] 1.2.171.481 [id number] Univers 14:38:38 15:30:42 Visit [facility] STOCK UNLOADER 350.1.13.10 ity of [facility] 4.2.7.2.686 [place] as MATERNAL [id number] [facility] & [address] 2020-02-08 2020-02-08 Outpatient R AKINSIPE, [facility] [id number] Univers 14:45:00 14:45:[address] [facility] 2020-01-30 2020-01-30 Orders Doctor PHILL 1.2.840.114 [id number] Univers 00:00:00 00:00:00 Only Unassigned, PAIGE 350.1.13.10 ity of [place] [facility] 4.2.7.2.686 [place] as [phone] [address] 2020-01-24 2020-01-24 Outpatient R ARELIS [facility] [id number] Univers 08:40:00 08:40:00 PHILL ity of [facility] 2020-01-23 2020-01-23 Abstract [facility] 1.2.840.114 [id number] Univers 00:00:00 00:00:00 Tony PRIMARY 350.1.13.10 it y of [place] [facility]2.[place] [phone] [address] 2020-01-23 2020-01-23 Telephone [facility] 1.2.602.174 [id number] Univers 00:00:00 00:00:00 Rosmelissanda R STOCK UNLOADER 350.1.13.10 ity of REGIONAL 4.2.7.2.686 [place] as MATERNAL [phone] Med ical & CHILD [address] [place] [address] 2020-01-21 2020-01-21 Office [facility] 1.2.840.114 [id number] Univers 08:32:46 09:29:11 Visit Raghunda R STOCK UNLOADER 350.1.13.10 ity of REGIONAL 4.2.7.2.686 [place] as MATERNAL [phone] Med ical & CHILD [address] [place] [address] 2020-01-21 2020-01-21 [facility] [id number] Univers 08:30:00 08:30:00 CARROLA ity o f [facility] 2019-12-27 2020-01-15 Office [facility] 1.2.440.874 [id number] Univers 14:49:24 22:41:22 Visit Phill PRIMARY 350.1.13.10 it y of [place] [phone] [facility] [address] 2019-12-31 2019-12-31 Telephone [facility] 1.2.840.114 [id number] Univers 00:00:00 00:00:00 Jocelyn C STOCK UNLOADER 350.1.13.10 ity of REGIONAL 4.2.7.2.686 [place] as MATERNAL [phone] Med ical & CHILD [address] [place] [address] 2019-12-28 2019-12-28 Office [facility] 1.2.162.202 [id number] Univers 15:18:44 15:56:31 Visit Jocelyn Gray STOCK UNLOADER 350.1.13.10 ity of [facility] 4.2.7.2.686 [place] as MATERNAL [phone] [facility] & CHILD [address] [place] [address] 2019-12-28 2019-12-28 Outpatient R CHRISTINA [facility] [id number] Univers 15:30:00 15:30:00 JOCELYN bergery o braeden [facility] 2019-12-27 2019-12-27 [facility] 1.2.840.114 [id number] Univers 14:56:29 23:59:00 Encounter Phill PRIMARY 350.1.13.10 ity of [facility] 4.2.7.2.[place] [phone] Mt dical [address] 2019-12-27 2019-12-27 Outpatient [facility] [id number] Univers 14:50:00 14:50:00 PHILL ity of [facility] 2019-12-26 2019-12-26 Abstract [facility] 1.2.867.115 [id number] Univers 00:00:00 00:00:00 Jim PRIMARY 350.1.13.10 it y of [facility] 4.2.7.2.[place] [phone] Mt dicpr [address] 2019-12-25 2019-12-25 Nurse Visit, Dick-Rmchp Nurse [facility] 1.2 .840.114 [id number] Univers 13:07:45 13:30:36 Visit Amanda Parker STOCK UNLOADER 350.1.13.10 ity of [facility] 4.2.7.2.686 Golden as MATERNAL [phone] [facility] & CHILD [address] [place] [address] 2019-12-25 2019-12-25 Outpatient R ELENA [facility] [id number] Univers 13:00:00 13:00:00 AMANDA mata o braeden [facility] 2019-12-10 2019-12-10 Outpatient R JOSEY KOCH [facility] [id number] Univers 09:30:00 09:30:00 ity of [facility] 2019-10-02 2019-10-02 Nurse Visit, Wendie Nurse [facility] 1.2 .840.114 [id number] Univers 12:50:26 13:05:26 Visit Amanda Parker Davion STOCK UNLOADER 350.1.13.10 ity of [facility] 4.2.7.2.686 [place] as MATERNAL [phone] [facility] ical & CHILD [address] [place] [address] 2019-10-02 2019-10-02 Outpatient R [facility] [id number] Univers 13:00:00 13:00:00 ity of [facility] 2019-10-01 2019-10-01 Outpatient R [facility] [id number] Univers 13:00:00 13:00:00 ity of [facility] 2019-10-01 2019-10-01 Telephone [facility] 1.2.840.114 [id number] Univers 00:00:00 00:00:00 Jocelyn Gray STOCK UNLOADER 350.1.13.10 ity of [facility] 4.2.7.2.686 [place] as MATERNAL [id number] [facility] CHILD [address] [place] [address] 2019-08-21 2019-08-21 Orders Doctor PHILL 1.2.840.114 [id number] Univers 00:00:00 00:00:00 Only Unassigned, PAIGE 350.1.13.10 ity of [place] [facility] 4.2.7.2.686 [place] as [phone] [address] 2019-07-09 2019-07-09 [facility] 1.2 .840.114 [id number] Univers 13:42:44 13:57:44 Visit Amanda Parker Davion STOCK UNLOADER 350.1.13.10 ity of [facility] 4.2.7.2.686 [place] as MATERNAL [phone] [facility] ical & CHILD [address] [place] [address] 2019-07-09 2019-07-09 Outpatient R [facility] [id number] Univers 13:30:00 13:30:00 ity of [facility] 2019-07-05 2019-07-05 Outpatient R GREGORY INFANTEMB [facility] [id number] Univers 09:50:00 09:50:00 PHILL itolivier [facility] 2019-06-11 2019-06-11 Office Josey Koch [facility] 1.2.840.114 [id number] Univers 09:45:09 10:00:09 Visit Health 350.1.13.10 it [place] [phone] [address] Office Building 2019-06-11 2019-06-11 Outpatient R JOSEY KOCH [facility] [id number] Univers 10:00:00 10:00:00 ity [facility] 2019-05-08 2019-05-09 Office Josey Koch [facility] 1.2.840.114 [id number] Univers 13:07:45 11:20:43 Visit Health 350.1.13.10 it [place] [phone] [address] Office Building 2019-05-03 2019-05-05 Hospital Josey Koch 1.2.840.114 [id number] Univers 08:27:00 13:50:00 Encounter [place] 350.1.13.10 ity of Hospital 4.2.7.2.686 [place] as [phone] [address] 2019-04-27 2019-04-27 Telephone Josey Koch [facility] 1.2.840.114 [id number] Univers 00:00:00 00:00:00 Health 350.1.13.10 it y [place] - [phone] [address] 2019-03-26 2019-03-26 Outpatient aDvion DINERO [facility] [id number] Univers 10:39:20 23:59:00 NATA mata [facility] 2019-03-26 2019-03-26 Outpatient Davion DINERO [facility] [id number] Univers 10:39:20 23:59:00 NATA mata [facility] 2019-03-23 2019-03-23 Outpatient Davion DINERO [facility] [id number] Univers 00:00:00 00:00:00 NATA mata of [facility] 2018-12-25 2019-01-02 [facility] 1.2.840.114 [id number] Univers 08:15:33 13:00:13 Roshunda R STOCK UNLOADER 350.1.13.10 ity of Visit REGIONAL 4.2.7.2.686 [place] as MATERNAL [phone] [facility] & [address] 2018-12-25 2018-12-25 Out[facility] [id number] Univers 08:00:00 09:13:28 ROSMELISSANDA ity o f [facility] 2018-12-21 2018-12-[address] [facility] 1.2.840.114 [id number] Univers 08:15:00 08:30:00 Roshunda R STOCK UNLOADER 350.1.13.10 ity of Visit REGIONAL 4.2.7.2.686 [place] as MATERNAL [id number] [address] 2018-12-21 2018-12-21 Outpatient Davion ELENA [facility] [id number] Univers 08:15:00 08:15:00 RAGHUNDA ity o f [facility] 2018-12-02 2018-12-04 [facility] 1.2.840.114 [id number] Univers 00:16:00 15:06:00 Encounter Erika GIBSON 350.1.13.10 ity of [facility] 4.2.7.2.686 [place] [phone] [address] 2018-11-30 2018-11-30 Routine [facility] 1.2.296.696 [id number] Univers 08:54:52 09:13:01 Hetal N STOCK UNLOADER 350.1.13.10 i ty of Visit REGIONAL 4.2.7.2.686 [place] as MAT[address]NAL [phone] [facility] & [address] 2018-11-23 2018-11-23 Routine [facility] 1.2.811.168 [id number] Univers 08:17:01 08:54:22 Jocelyn C STOCK UNLOADER 350.1.13.10 ity of Visit REGIONAL 4.2.7.2.686 [place] as MATERNAL [phone] [facility] ical & CHILD [address] [facility] 2018-11-16 2018-11-20 Office Arelis [facility] 1.2.359.501 [id number] Univers 10:35:57 11:06:37 Visit Phill [facility] 350.1.13.10 it y of [place]2.[place] [phone] Mt dical [address] 2018-11-16 2018-11-16 Routine [facility] 1.2.691.543 [id number] Univers 15:15:19 15:55:04 Jocelyn C STOCK UNLOADER 350.1.13.10 ity of Visit [facility] 4.2.7.2.686 Golden as MATERNAL [phone] [facility] ical & CHILD [address] [place] [address] 2018-11-14 2018-11-14 Abstract [facility] 1.2.012.732 [id number] Univers 00:00:00 00:00:00 Peter Phill [facility] 350.1.13.10 ity of [place] [phone] Mt dical [address] Results Test Description Test Time Test Comments [...] code = 3257) 250 Negative - Negative [facility] URINALYS[facility] W/O SPECIFIC [id number] 21:51:00 Test Item Value Reference Range Interpretation [...] code = 3257) 250 Negative - Negative [facility] URINALYSIS W/O SPECIFIC [id number] 21:51:00 Test Item Value Reference Range Interpretation [...] code = 3257) 250 Negative - [facility] [id number] 21:51:00 Test Item Value Reference Range Interpretation [...] code = 3257) 250 Negative - Negative [facility] TylerCOMP. METABOLIC PANEL (31320)2022-06-22 20:03:18 Test Item Value Reference Range Interpretation Comments NA (test code = 136 mmol/L 135-145 2794033234) K (test code = 4.1 mmol/L 3.5-5.0 4548202283) CL (test code = 104 mmol/L 98-108 3745453053) CO2 TOTAL (test code = 24 mmol/L 23-31 0142301232) AGAP (test code = 8 2-16 2084658867) BUN (test code = 11 mg/dL 7-23 8780767341) GLUCOSE (test code = 96 mg/dL 70-110 9936200378) CREATININE (test code = 0.47 mg/dL 0.50-1.04 L 1628124191) TOTAL BILI (test code = 0.6 mg/dL 0.1-1.9 5984053773) CALCIUM (test code = 8.7 mg/dL 8.6-10.6 6569393314) T PROTEIN (test code = 7.2 g/dL 6.3-8.2 6897161172) ALBUMIN (test code = 4.4 g/dL 3.5-5.0 1023181442) ALK PHOS (test code = 77 U/L 34-122 2699537642) ALTv (test code = 14 U/L 5-35 2-6) AST(SGOT) (test code = 18 U/L 13-40 7522507170) eGFR (test code = 162.8 mL/min/1.73m2 1201234619) BAN (test code = BAN) Association of [...] tests). Lab Interpretation Abnormal (test code = 86300-0) [facility] TylerLIPASE2023-03-07 20:03:18 Test Item Value Reference Range Interpretation Comments LIPASE (test code = 2184432043) 56 U/L 0-220 Lab Interpretation (test code = Normal 46246-3) [facility] TylerCB WITH [id number] 19:45:15 Test Item Value Reference Range Interpretation [...] (test code = 38.4 fL 39.0-49.9 L 76452-7) RDW-CV (test code = 11.6 % 12.0-15.5 L 788-0) PLT (test code = 339 See_Comment [Automated 777-3) message] The sy stem which generated this result transmitted reference range : 166 - 358 10*3/ ?L. The reference r amy was not used to interpret this result as normal/abnormal . MPV (test code = 9.4 fL 9.5-12.9 L 60327-7) NRBC/100 WBC (test 0.0 See_Comment [Automat ed code = 3775025254) message] The system which generated this result transmitted reference range : 0.0 - 10.0 /100 WBCs. The refer ence range was not u sed to interpret th is result as normal/abnormal . NRBC x10^3 (test code See_Comment [Auto mated = 2220427623) message] The s ystem which generated this result transmitted reference range : 10*3/?L. The reference range was not used to interpret this result as normal/abnormal . GRAN MAT (NEUT) % 68.6 % (test code = 770-8) IMM GRAN % (test code 0.10 % = 7448211489) LYMPH % (test code = 23.2 % 736-9) MONO % (test code = 5.8 % 5905-5) EOS % (test code = 1.9 % 713-8) BASO % (test code = 0.4 % 706-2) GRAN MAT x10^3(ANC) 4.95 10*3/uL 1.88-7.09 (test code = 3732933819) IMM GRAN x10^3 (test 0.00-0.06 code = 3153777917) LYMPH x10^3 (test code 1.68 10*3/uL 1.32-3.29 = 731-0) MONO x10^3 (test code 0.42 10*3/uL 0.33-0.92 = 742-7) EOS x10^3 (test code = 0.14 10*3/uL 0.03-0.39 711-2) BASO x10^3 (test code 0.03 10*3/uL 0.01-0.07 = 704-7) Lab Interpretation Abnormal (test code = 22308-7) [facility] TylerLadcic Acid Whole [id number] 19:37:28 Test Item Value Reference Range Interpretation Comments LACTIC ACID (test code = 1.10 mmol/L 0.50-2.20 2934113912) Lab Interpretation (test code = Normal 68939-3) [facility] TylerPOCT [id number] 19:20:00 Test Item Value Reference Range Interpretation Comments POCT PREG TEST DATE (test 5786959 code = 3576) POCT PREG LOT # (test code = 3575) [id number] On board controls acceptable with C present Line (test code = 3574) POCT PREG (test code = 1605) negative Lab Interpretation (test code = Normal 35173-2) [facility] URINALYSIS W/O SPECIFIC [id number] 22:35:00 Test Item Value Reference Range Interpretation [...] code = 3257) neg Negative - Negative [facility] URINALYSIS W/O SPECIFIC [id number] 22:35:00 Test Item Value Reference Range Interpretation [...] code = 3257) neg Negative - Negative [facility] [id number] 20:03:00 Test Item Value Reference Range Interpretation Comments POCT PREG (test code = Negative 1605) On board controls Yes acceptable with C Line (test code = 3574) POCT PREG LOT # (test code = 3575) POCT PREG TEST DATE (test code = 3576) BAN (test code = BAN) accurate development and interpretation of all internal controls Lab Interpretation Normal (test code = 71288-2) [facility] [id number] 20:03:00 Test Item Value Reference Range Interpretation Comments POCT PREG (test code = Negative 1605) On board controls Yes acceptable with C Line (test code = 3574) POCT PREG LOT # (test code = 3575) POCT PREG TEST DATE (test code = 3576) BAN (test code = BAN) accurate development and interpretation of all internal controls Lab Interpretation Normal (test code = 49286-1) [facility] [id number] 20:03:00 Test Item Value Reference Range Interpretation Comments POCT PREG (test code = Negative 1605) On board controls Yes acceptable with C Line (test code = 3574) POCT PREG LOT # (test code = 3575) POCT PREG TEST DATE (test code = 3576) BAN (test code = BAN) accurate development and interpretation of all internal controls Lab Interpretation Normal (test code = 94325-6) [facility] [id number] 20:03:00 Test Item Value Reference Range Interpretation Comments POCT PREG (test code = Negative 1605) On board controls Yes acceptable with C Line (test code = 3574) POCT PREG LOT # (test code = 3575) POCT PREG TEST DATE (test code = 3576) BAN (test code = BAN) accurate development and interpretation of all internal controls Lab Interpretation Normal (test code = 70486-0) [facility] URINALYSIS W SPECIFIC [id number] 19:03:00 Test Item Value Reference Range Interpretation [...] controls Lab Interpretation Abnormal (test code = 53632-0) [facility] URINALYSIS W SPECIFIC [id number] 19:03:00 Test Item Value Reference Range Interpretation [...] controls Lab Interpretation Abnormal (test code = 01442-3) [facility] URINALYSIS W SPECIFIC [id number] 19:03:00 Test Item Value Reference Range Interpretation [...] controls Lab Interpretation Abnormal (test code = 49225-7) [facility] URINALYSIS W SPECIFIC [id number] 19:03:00 Test Item Value Reference Range Interpretation [...] controls Lab Interpretation Abnormal (test code = 89124-0) [facility] URINALYSIS W SPECIFIC [id number] 22:54:00 Test Item Value Reference Range Interpretation [...] U APPEAR (test cloudy code = 3267) ABN (test code = BAN) accurate development and interpretation of all internal controls Lab Interpretation Abnormal (test code = 17306-8) [facility] URINALYSIS W SPECIFIC [id number] 22:54:00 Test Item Value Reference Range Interpretation [...] controls Lab Interpretation Abnormal (test code = 25741-5) [facility] URINALYSIS W SPECIFIC [id number] 22:54:00 Test Item Value Reference Range Interpretation [...] controls Lab Interpretation Abnormal (test code = 89494-9) [facility]"
[2022-10-12 07:19] LABS: Specific Gravity 1.015 (1.005-1.030); Urine Bacteria None Seen /HPF (<20); Urine Bilirubin NEGATIVE (Negative); Urine Blood Trace (Negative); Urine Clarity Turbid (Clear); Urine Color Light-Yellow (Yellow); Urine Glucose NEGATIVE (Negative); Urine Mucus Slight /HPF (None Seen); Urine Protein NEGATIVE (Negative); Urine RBC <5 /HPF (None Seen); Urine Urobilinogen Normal (Normal)
[2022-10-12 07:20] LABS: Specific Gravity 1.015 (1.005-1.030)
--- NOTE | 2022-10-12 07:24 | RAD REPORT ---
EXAM DESCRIPTION: US - Abdomen Exam Limited - 10/12/2022 7:14 am CLINICAL HISTORY: ABD PAIN COMPARISON: No comparisons FINDINGS: The gallbladder demonstrates no gallstones. No pericholecystic fluid or gallbladder wall t hickening. The common bile duct is normal measuring 2 mm. The liver demonstrates no findings of intrahepatic biliary dilatation. IMPRESSION: Unremarkable examination.
[2022-10-12] MEDS ORDERED: MORPHINE 2 MG/ML SYR ONE (07:36)
[2022-10-12] MEDS ORDERED: NA CHLORIDE 0.9% 1,000 ML ONE (07:36)
[2022-10-12] MEDS ORDERED: FAMOTIDINE 20 MG/2 ML VIAL IV ONE (07:36)
[2022-10-12] MEDS ORDERED: ONDANSETRON 4 MG/2 ML VIAL ONE ×2 (07:38→10:36)
[2022-10-12 07:44] LABS: Absolute Lymphocytes (CBC) 1.4 K/uL (0.7-4.9); Hematocrit 42.4 % (36.0-45.0); Lymphocytes % 11.9 % (15.3-44.8); MCV 92.1 fL (80-100); MPV 7.2 fL (7.6-11.3)
[2022-10-12 07:59] LABS: Albumin 3.9 g/dL (3.4-5.0); Bilirubin Total 0.6 mg/dL (0.2-1.0); Potassium 3.8 mEq/L (3.5-5.1); Protein, Total 7.1 g/dL (6.4-8.2)
--- NOTE | 2022-10-12 08:15 | RAD REPORT ---
EXAM DESCRIPTION: CTAbdomen Pelvis W Contrast - 10/12/2022 7:52 am CLINICAL HISTORY: Abdominal pain. Abd pain;Abdominal distention COMPARISON: Abdomen Pelvis W Contrast dated 06/30/2022; Abdomen Pelvis W Contrast dated 2; Abdomen Pelvis W Contrast dated 11/04/2021; Abdomen Pelvis W Contrast dated 05/10/2021; Abdomen Exam Limited dated 10/12/2022 TECHNIQUE: Biphasic CT imaging of the abdomen and pelvis was performed with 100 ml non-ionic IV cont rast. All CT scans are performed using dose optimization technique as appropriate and may include automated exposure control or mA/KV adjustment according to patient size. FINDINGS: The lung bases are clear. The liver, spleen, pancreas, adrenal glands and kidneys are within normal limits. Multiple dilated small bowel loops are present in the central mid abdomen. Maximum dilatation measure s 6-7 cm. This is compatible with mechanical small-bowel obstruction. Point of transition is noted in the right abdomen (image [id number]). There is evidence of prior surgical intervention in the small inte clay as well. No free air seen. The appendix is normal. No evidence of significant lymphadenopathy. No suspicious bony findings. IMPRESSION: Significantly dilated small bowel loops in the mid and lower abdomen compatible with mod erately severe mechanical small-bowel obstruction as detailed. No free air.
[2022-10-12] MEDS ORDERED: FENTANYL CITR 100 MCG/2 ML ONE ×3 (08:56→11:47)
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
[2022-10-12 12:11] VITALS: TEMP 98.3
[2022-10-12 12:18] VITALS: BP 127/90; O2SAT 97
--- NOTE | 2022-10-12 12:21 | RAD REPORT ---
EXAM DESCRIPTION: RAD - Chest Single View - 10/12/2022 11:59 am CLINICAL HISTORY: NG placement Chest pain. COMPARISON: Abdomen 1 View (KUB) dated 05/10/2021; Chest Single View dated 12/09/2020 FINDINGS: The the enteric tube is in the stomach. The position of the tube appears adequate.
== END 2022-10-12 12:06 | disposition short-term general hospital (02) ==
LOC: ER 05:58
DX: K56.609 Unspecified intestinal obstruction, unspecified as to partial versus complete obstruction (principal)
CPT/HCPCS: 85025; 81001; 36415; 81025; 83690; 80053; 74177; 71045; 76705; Q9967; J3010 ×3; J2270; J2405 ×2; J7030

== ENCOUNTER 2022-12-13 16:56 | Emergency (ER) | payer OTHER ==
--- OUTSIDE RECORDS SUMMARY | 2022-12-13 17:22 | XMS REPORT | Continuity of Care Document ---
:2000 Author Organization [facility] t Address [address] [facility]. [address] [place] [address] Care Team Providers Name Role Phone REISGALLITOJAMEL BARCENAS Primary Care Physician Unavailable STEFFANY ARGUELLO Attending Clinician Unavailable GALINA LIND Attending Clinician Unavailable Josey Koch MD Attending Clinician JOSEY KOCH Attending Clinician Unavailable HENRIETTA SANTOS Attending Clinician Unavailable STEFFANY ZAPATA Attending Clinician Unavailable Steffany Zapata MD Attending Clinician Unknown, Attending Attending Clinician Unavailable Doctor Unassigned, [place] Attending Clinician Unavailable Petra Rob RN Attending Clinician UNKNOWN, ATTENDING Attending Clinician Unavailable [facility] Attending Clinician Unavailable Angel Sams MD Attending Clinician ANGEL SAMS Attending Clinician Unavailable Aneta Joseph MD Attending Clinician [phone] Chacha Gomez MD Attending Clinician CHACHA GOMEZ Attending Clinician Unavailable LILIYA PATEL Attending Clinician Unavailable LILIYA PATEL Attending Clinician Unavailable ZULLY HOLT Attending Clinician Unavailable ELIJAH HERNANDEZ Attending Clinician Unavailable Elijah Hernandez MD Attending Clinician Nurse, [facility] Attending Clinician Unavailable Zully Holt PA-C Attending Clinician Henrietta Santos MD Attending Clinician Mara Olivarez Attending Clinician Lab, Ang - Db Attending Clinician Unavailable MARA MENDENHALL Attending Clinician Unavailable LORENZA CHEW Attending Clinician Unavailable Jeevan INSOLE AND OUTSOLE SPLITTER, Lorenza Vasquez Attending Clinician ROSA ERAZO Attending Clinician Unavailable Kacey INSOLE AND OUTSOLE SPLITTERRosa Chavarria Attending Clinician 2, [facility] Attending Clinician Unavailable LOKESH MISHRA Attending Clinician Unavailable AMANDA PARKER Attending Clinician Unavailable Lokesh Mishra MD Attending Clinician Vaccine, [facility] Attending Clinician Unavailable Moe Marie DO Attending Clinician MOE MARIE Attending Clinician Unavailable Rachel Sanchez RN Attending Clinician Unavailable Yvon Garcia CRNA Attending Clinician Phill Louie MD Attending Clinician Pob, [facility] Main Attending Clinician Unavailable 1, [facility] Attending Clinician Unavailable BHARGAV SARABIA Attending Clinician Unavailable Jocelyn Brice Attending Clinician [phone] HETAL HOOK Attending Clinician Unavailable [facility] Nurse Vst, Fp Nrpt Pills Class Attending Clinician Unavailable Hetal Muniz Attending Clinician PHILL INFANTE Attending Clinician Unavailable Arelis JIMENEZ MD, John Attending Clinician Amanda Yates Attending Clinician JOCELYN VASQUEZ Attending Clinician Unavailable Provider, [facility] Attending Clinician Unavailable Evi Greer Attending Clinician EVI MYERS Attending Clinician Unavailable Lab, [facility] Attending Clinician Unavailable China Fine RN Attending Clinician Unavailable Visit, [facility] Nurse Attending Clinician Unavailable Vi FOSTER, Tony Martini Attending Clinician Kevin FOSTER, Jim Mckeon Attending Clinician NATA DINERO Attending Clinician Unavailable Erika De Leon MD Attending Clinician [phone] Gasper Morton MD Attending Clinician JOSEY KOCH Admitting Clinician Unavailable Josey Koch MD Admitting Clinician ELIJAH HERNANDEZ Admitting Clinician Unavailable ZULLY HOLT Admitting Clinician Unavailable HENRIETTA SANTOS Admitting Clinician Unavailable Henrietta Santos MD Admitting Clinician NATA DINERO Admitting Clinician Unavailable Erika De Leon MD Admitting Clinician [phone] Payers Payer Name Policy Type Policy Number Effective Date Expiration Date Yulisa rosenthal [facility] [id number] 2022 00:00:00 MEDICAID PENDING PENDING 2020 00:00:00 Problems Condition Condition Condition Status Onset Resolution Last Treating Co mments Source Name Details Category Date Date Treatment Clinician Date Small Small Disease Active Univers bowel bowel 6-27 [place] [facility] Cysts of Cysts of Disease Active Unive rs both both 4-04 ity of ovaries ovaries 00:00: [address] Pain Pain Disease Active Univers pelvic pelvic 4-04 ity of 00:00: [address] Obesity Obesity Disease Active Univers (BMI (BMI 7-13 ity of 30-39.9) 30-39.9) 00:00: [address] Postoperat Postoperat Disease Active U nivers adalgisa adalgisa 6-22 ity of dehiscence dehiscence [place] skin of skin 00 Medical wound, wound, Branch initial initial encounter encounter Status Status Disease Active Univers post post 6 [place] of bilateral bilateral 00:00[place] [...] Added automatic ally from request for surgery [id number] Nexplanon Nexplanon Disease Active Uni vers in [...] Active Univers ALLERGIE Class ity of [facility] [place] [facility] Social History Social Habit Start Date Stop Date Quantity Comments Source History SDOH University o f Social Connections [place] [facility] Get Together Branch History SDMI University o f Social Conne[facility] [place] [facility] Muslim Branch History [facility] University o f Social Conne[facility] [place] [facility] Membership Branch History [facility] University o f Social Conne[facility] [place] [facility] Meetings [facility] Gender identity [facility] [place] [facility] [place] Sexual [facility] [place] [facility] [place] Alcohol intake 2022-11-16 2022-11-16 Current drinker of Un iversity of 00:00:00 00:00:00 alcohol (finding) [place] [facility] History [facility] 2022-10-13 2022-10-13 2 University o f Alcohol Frequency 00:00:00 00:00:00 [place] [facility] History [facility] 2022-10-13 2022-10-13 3 University o f Alcohol Std Drinks 00:00:00 00:00:00 [place] [facility] History SDMI 2022-10-13 2022-10-13 2 University o f Alcohol Binge 00:00:00 00:00:00 [place] [facility] History [facility] 2022-10-13 2022-10-13 5 University o f Social Connections 00:00:00 00:00:00 [place] [facility] Phone Branch History SDMI 2022-10-13 2022-10-13 7 University o f Social Connections 00:00:00 00:00:00 [place] [facility] Living [facility] History SDOH 2022-10-13 2022-10-13 0 University o f Physical Activity 00:00:00 00:00:00 [place] [facility] DPW Branch History SDMI 2022-10-13 2022-10-13 0 University o f Physical Activity 00:00:00 00:00:00 [place] [facility] MPS Branch History SDMI 2022-10-13 2022-10-13 5 University o f Financial 00:00:00 00:00:00 [place] [facility] History SDMI Food 2022-10-13 2022-10-13 1 Univers ity of Worry 00:00:00 00:00:00 [place] [facility] History SDOH Food 2022-10-13 2022-10-13 1 Univers ity of Scarcity 00:00:00 00:00:00 [place] [facility] History SDMI 2022-10-13 2022-10-13 2 University o f Transport Med 00:00:00 00:00:00 [place] [facility] History SDMI 2022-10-13 2022-10-13 2 University o f Transport Non-Med 00:00:00 00:00:00 [place] [facility] History SDMI 2022-10-13 2022-10-13 2 University o f Housing Unable to 00:00:00 00:00:00 [place] [facility] Pay Branch History SDMI 2022-10-13 2022-10-13 2 University o f Housing Places 00:00:00 00:00:00 [place] [facility] suleiman Lived Branch History [facility] 2022-10-13 2022-10-13 2 University o f Housing Homeless 00:00:00 00:00:00 [place] [facility] Last Year Branch Exposure to 2022-10-01 2022-10-11 Not sure University of SARS-CoV-2 (event) 00:00:00 00:40:00 [place] [facility] History of Social 2022-07-06 2022-07-06 Univers ity of function 00:00:00 00:00:00 [facility] Branch Tobacco use and 2021-10-28 2021-10-28 Smokeless tobacco Un iversity of exposure 00:00:00 00:00:00 non-user [facility] Alcohol Comment 2021-08-24 2021-08-24 occasionally Univers ity of 00:00:00 00:00:00 [facility] Sex Assigned At [birth year] Universit y of 00:00:00 00:00:00 [facility] Smoking Status Start Date Stop Date Source Never smoked tobacco [facility] Medications Ordered Filled Start Stop Current Ordering Indication Dosage Frequency Signature Comments Components Source Medication Medication Date Date Medication? Clinician (SIG) Name Name Nitrofurant 2022- Yes [id number] 100mg Take 1 Univers oin&Nit. 10-27 capsule by ity of Macrocryst 00:00: 04:59 mouth [place] 100 mg 00 :00 the Medical capsule morning Branch and 1 capsule in the evening. Do all this for 5 days. Nitrofurant 2022- No [id number] 100mg Take 1 Univers oin&Nit. 10-27 capsule by ity of Macrocryst 00:00: 04:59 mouth [place] 100 mg 00 :00 the Medical capsule morning Branch and 1 capsule in the evening. Do all this for 5 days. polyethylen 2022- Yes [id number] 17g Take 1 Univers e glycol 7- 08- Packet by ity o f 3350 17 00:00: 04:59 mouth in [place] gram powder 00 :00 the [facility] for 30 days. polyethylen 2022- Yes [id number] 17g Take 1 Univers e glycol 7- 08-02 Packet by ity o f 3350 17 00:00: 04:59 mouth in [place] gram powder 00 :00 the [facility] for 30 days. polyethylen 2022- Yes [id number] 17g Take 1 Univers e glycol 7-02 08-02 Packet by ity o f 3350 17 00:00: 04:59 mouth in [place] gram powder 00 :00 the [facility] for 30 days. polyethylen 2022- Yes [id number] 17g Take 1 Univers e glycol 7- 08-02 Packet by ity o f 3350 17 00:00: 04:59 mouth in [place] gram powder 00 :00 the [facility] for 30 days. polyethylen 3-0 2022- Yes [id number] 17g Take 1 Univers e glycol 7-05 26- Packet by ity o f 3350 17 00:00: 04:59 mouth in [place] gram powder 00 :00 the Medical morning Branch for 30 days. polyethylen 2022-0 3- Yes [id number] 17g Take 1 Univers e glycol -05 26- Packet by ity o f 3350 17 00:00: 04:59 mouth in [place] gram powder 00 :00 the [facility] morning Branch for 30 days. polyethylen 2022-0 2022- Yes [id number] 17g Take 1 Univers e glycol -05 26- Packet by ity o f 3350 17 00:00: 04:59 mouth in [place] gram powder 00 :00 the [facility] for 30 days. FLUoxetine 2022-0 Yes 10mg Take 10 mg U nivers 10 mg 7-01 by mouth 3 ity of capsule 14:45: (three) [place] 52 times Medical daily. Branch FLUoxetine 3-0 Yes 10mg Take 10 mg U nivers 10 mg 7-01 by mouth 3 ity of capsule 14:45: (three) [place] 52 times Medical daily. Branch FLUoxetine 2023-0 Yes 10mg Take 10 mg U nivers 10 mg 7-01 by mouth 3 ity of capsule 14:45: (three) [place] 52 times Medical daily. Branch FLUoxetine 3-0 Yes 10mg Take 10 mg U nivers 10 mg 7-01 by mouth 3 ity of capsule 14:45: (three) [place] 52 times Medical daily. Branch FLUoxetine 2023-0 Yes 10mg Take 10 mg U nivers 10 mg 7-01 by mouth 3 ity of capsule 14:45: (three) [place] 52 times Medical daily. Branch FLUoxetine 2023-0 Yes 10mg Take 10 mg U nivers 10 mg 7-01 by mouth 3 ity of capsule 14:45: (three) [place] 52 times Medical daily. Branch FLUoxetine 2023-0 Yes 10mg Take 10 mg U nivers 10 mg 7-01 by mouth 3 ity of capsule 14:45: (three) [place] 52 times Medical daily. Branch acetaminoph 2022-0 2023- Yes [id number] 500mg Take 1 Univers en (TYLENOL 7- 07-09 tablet by it y of EXTRA 00:00: 04:59 mouth [place] STRENGTH) 00 :00 every 6 Medical 500 mg (six) Branch tablet hours as needed for Pain for up to 7 days. acetaminoph 2022- Yes [id number] 500mg Take 1 Univers en (TYLENOL 10-16 tablet by it y of EXTRA 00:00: 04:59 mouth [place] STRENGTH) 00 :00 every 6 Medical 500 mg (six) Branch tablet hours as needed for Pain for up to 7 days. polyethylen Yes 17g 17 g, Unive rs e glycol 10-15 Oral, ity of 3350 powder 14:00: DAILY, [place] 17 g 00 First dose Medical on Tue Branch 10/15/22 at 0900, Until Discontinu ed, Routine D5W 0.45% 2022- No IV Univers NaCl 10-15 Infusion, ity of (1/2NS) 1 L 13:45: 17:53 at 50 [place] + KCL 20 00 :27 mL/hr, Medical mEq CONTINUOUS Branch , Starting on Tue10/15/22 at 0845, Until Tue10/15/22 at 1253, Routine acetaminoph 2022- No 1000mg 1,000 mg, Univers en ADULT 10-14 IV ity of (OFIRMEV) 19:00: 10:40 Infusion, [place] injection 00 :00 at 400 Medical 1,000 mg mL/hr Branch Administer over 15 Minutes, Q8H, 3 doses, First dose (after last reorder) on Tue10/14/22 at 1400, Last dose on Tue10/15/22 at 0600, Routine
Indicatio n: Perioperat adalgisa Patient ketorolac 2022- No 15mg 15 mg, Unive rs (TORADOL) 10-13 Slow IV ity of injection 23:00: 18:01 [place], Q6H, [place] 15 mg 00 :00 4 doses, Medical First dose Branch (after last reorder) on Tue10/13/22 at 1800, Last dose on Tue10/14/22 at 1200, Routine iopamidol 2022- No [id number] 300mL 300 mL, Univers (ISOVUE 6-28 06-28 Intravenou ity o f 300-50 mL) 15:15: 15:15 s, ONCE, 1 [place] injection 00 :00 dose, On Medica l 300 mL Tue Branch 10/13/22 at 1015, Routine enoxaparin 2022- No 40mg 40 mg, Univ ers (LOVENOX) 10-12 Subcutaneo ity of injection 22:00: 17:53 us, DAILY, [place] 40 mg 00 :27 First dose Medical on Tue10/12/22 at 1700, Until Discontinu ed, Routine acetaminoph 2022- No 1000mg 1,000 mg, Univers en ADULT 10-12 IV ity of (OFIRMEV) 20:45: 13:44 Infusion, [place] injection 00 :00 at 400 Medical 1,000 mg mL/hr Branch Administer over 15 Minutes, Q8H, 3 doses, First dose (after last modificati on) on Tue10/12/22 at 1545, Last dose on Tue10/13/22 at 0600, Routine
Indicatio n: Perioperat adlagisa Patient KCL 2022- No IV Univers (POTASSIUM 10-12 Infusion, ity of CHLORIDE) 20:30: 12:32 CONTINUOUS [place] 10 mEq in 00 :40 , Starting Medi suleiman D5W 0.45% on Tue NaCl 10/12/22 at (1/2NS) 1530, 1,000 mL IV Until Fri Solution 10/15/22 at 0732, 1,000 mL, at 125 mL/hr pantoprazol 2022- No 40mg 40 mg, Uni vers e 10-12 Slow IV ity of (PROTONIX) 19:30: 20:13 Push, [place] injection 00 :00 Q24H, 3 Medical 40 mg doses, Branch First dose on Tue10/12/22 at 1430, Last dose on Tue10/14/22 at 1430 ketorolac 2022- No 15mg 15 mg, Unive rs (TORADOL) 10-12 Slow IV ity of injection 19:30: 22:59 Push, Q6H, [place] 15 mg 00 :00 5 doses, Medical First dose Branch on Tue10/12/22 at 1430, Last dose on Tue10/13/22 at 1200, Routine ondansetron 2022-0 Yes 4mg 4 mg, Slow Univers (ZOFRAN 6- IV Push, ity of (PF)) 19:16: Q6HPRN, [place] injection 4 16 Starting Medi suleiman mg on Tue Branch 10/12/22 at 1416, Until Discontinu ed, Routine, Nausea and Vomiting (N/V) dicyclomine 2023-0 Yes [id number] 10mg Take 1 Univers 10 mg 4-25 [id number] capsule by ity of capsule 00:00: mouth [place] 00 every 6 Medical (six) Branch hours as needed for Abdominal pain. dicyclomine 2022-0 Yes [id number] 10mg Take 1 Univers 10 mg 4-25 [id number] capsule by ity of capsule 00:00: mouth [place] 00 every 6 Medical (six) Branch hours as needed for Abdominal pain. dicyclomine 2022-0 Yes [id number] 10mg Take 1 Univers 10 mg 4-25 73844 capsule by ity of capsule 00:00: mouth [place] 00 every 6 Medical (six) Branch hours as needed for Abdominal pain. dicyclomine 3-0 Yes [id number] 10mg Take 1 Univers 10 mg 4-25 [id number] capsule by ity of capsule 00:00: mouth [place] 00 every 6 Medical (six) Branch hours as needed for Abdominal pain. dicyclomine 2023-0 Yes [id number] 10mg Take 1 Univers 10 mg 4-25 96913 capsule by ity of capsule 00:00: mouth [place] 00 every 6 Medical (six) Branch hours as needed for Abdominal pain. dicyclomine 3-0 Yes [id number] 10mg Take 1 Univers 10 mg 4-25 [id number] capsule by ity of capsule 00:00: mouth [place] 00 every 6 Medical (six) Branch hours as needed for Abdominal pain. dicyclomine 2023-0 Yes [id number] 10mg Take 1 Univers 10 mg 4-25 32908 capsule by ity of capsule 00:00: mouth [place] 00 every 6 Medical (six) Branch hours as needed for Abdominal pain. dicyclomine 2023-0 Yes [id number] 10mg Take 1 Univers 10 mg 4-25 [id number] capsule by ity of capsule 00:00: mouth [place] 00 every 6 Medical (six) Branch hours as needed for Abdominal pain. dicyclomine 0 Yes [id number] 10mg Take 1 Univers 10 mg 4-25 38931 capsule by ity of capsule 00:00: mouth [place] 00 every 6 Medical (six) Branch hours as needed for Abdominal pain. dicyclomine 0 Yes [id number] 10mg Take 1 Univers 10 mg 4-25 18086 capsule by ity of capsule 00:00: mouth [place] 00 every 6 Medical (six) Branch hours as needed for Abdominal pain. dicyclomine 0 Yes [id number] 10mg Take 1 Univers 10 mg 4-25 31647 capsule by ity of capsule 00:00: mouth [place] 00 every 6 Medical (six) Branch hours as needed for Abdominal pain. dicyclomine 0 Yes [id number] 10mg Take 1 Univers 10 mg 4-25 28538 capsule by ity of capsule 00:00: mouth [place] 00 every 6 Medical (six) Branch hours as needed for Abdominal pain. predniSONE 2022- No [id number] Take 3 Univers 10 mg 4-25 06-07 [id number] tablets by ity of tablet 00:00: 04:59 mouth [place] 00 :00 daily for Medical 14 days, Branch THEN 2 tablets daily for 14 days, THEN 1 tablet daily for 14 days. predniSONE 2022-0 2022- No [id number] Take 3 Univers 10 mg 4-25 06-07 [id number] tablets by ity of tablet 00:00: 04:59 mouth [place] 00 :00 daily for Medical 14 days, Branch THEN 2 tablets daily for 14 days, THEN 1 tablet daily for 14 days. predniSONE 2022-0 2022- No [id number] Take 3 Univers 10 mg 4-25 06-07 [id number] tablets by ity of tablet 00:00: 04:59 mouth [place] 00 :00 daily for Medical 14 days, Branch THEN 2 tablets daily for 14 days, THEN 1 tablet daily for 14 days. predniSONE 2022-0 2022- No [id number] Take 3 Univers 10 mg 4-25 06-07 23721 tablets by ity of tablet 00:00: 04:59 mouth [place] 00 :00 daily for Medical 14 days, Branch THEN 2 tablets daily for 14 days, THEN 1 tablet daily for 14 days. omeprazole 2022-0 Yes [id number] 20mg Take 1 Univers 20 mg 4-05 [id number] capsule by ity of capsule 00:00: mouth in [place] 00 the Medical morning. Branch azaTHIOprin 2023-0 Yes [id number] 50mg Take 1 Univers e 50 mg 4-05 14636 tablet by ity of tablet 00:00: mouth in [place] 00 the Medical morning. Branch omeprazole 2023-0 Yes [id number] 20mg Take 1 Univers 20 mg 4-05 [id number] capsule by ity of capsule 00:00: mouth in [place] 00 the Medical morning. Branch azaTHIOprin 2023-0 Yes [id number] 50mg Take 1 Univers e 50 mg 4-05 22080 tablet by ity of tablet 00:00: mouth in [place] 00 the Medical morning. Branch omeprazole 2023-0 Yes [id number] 20mg Take 1 Univers 20 mg 4-05 [id number] capsule by ity of capsule 00:00: mouth in [place] 00 the Medical morning. Branch azaTHIOprin 2023-0 Yes [id number] 50mg Take 1 Univers e 50 mg 4-05 [id number] tablet by ity of tablet 00:00: mouth in [place] 00 the Medical morning. Branch omeprazole 2023-0 Yes [id number] 20mg Take 1 Univers 20 mg 4-05 99950 capsule by ity of capsule 00:00: mouth in [place] 00 the Medical morning. Branch azaTHIOprin 2023-0 Yes [id number] 50mg Take 1 Univers e 50 mg 4-05 [id number] tablet by ity of tablet 00:00: mouth in [place] 00 the Medical morning. Branch omeprazole 2023-0 Yes [id number] 20mg Take 1 Univers 20 mg 4-05 [id number] capsule by ity of capsule 00:00: mouth in [place] 00 the Medical morning. Branch azaTHIOprin 2023-0 Yes [id number] 50mg Take 1 Univers e 50 mg 4-05 [id number] tablet by ity of tablet 00:00: mouth in [place] 00 the Medical morning. Branch omeprazole 2023-0 Yes [id number] 20mg Take 1 Univers 20 mg 4-05 62551 capsule by ity of capsule 00:00: mouth in [place] 00 the Medical morning. Branch azaTHIOprin 2023-0 Yes [id number] 50mg Take 1 Univers e 50 mg 4-05 54081 tablet by ity of tablet 00:00: mouth in [place] 00 the Medical morning. Branch omeprazole 3-0 Yes [id number] 20mg Take 1 Univers 20 mg 4-05 33870 capsule by ity of capsule 00:00: mouth in [place] 00 the Medical morning. Branch azaTHIOprin 3-0 Yes [id number] 50mg Take 1 Univers e 50 mg 4-05 77598 tablet by ity of tablet 00:00: mouth in [place] 00 the Medical morning. Branch omeprazole 3-0 Yes [id number] 20mg Take 1 Univers 20 mg 4-05 41247 capsule by ity of capsule 00:00: mouth in [place] 00 the Medical morning. Branch azaTHIOprin 3-0 Yes [id number] 50mg Take 1 Univers e 50 mg 4-05 [id number] tablet by ity of tablet 00:00: mouth in [place] 00 the Medical morning. Branch omeprazole 3-0 Yes [id number] 20mg Take 1 Univers 20 mg 4-05 29477 capsule by ity of capsule 00:00: mouth in [place] 00 the Medical morning. Branch azaTHIOprin 3-0 Yes [id number] 50mg Take 1 Univers e 50 mg 4-05 74511 tablet by ity of tablet 00:00: mouth in [place] 00 the Medical morning. Branch omeprazole 3-0 Yes [id number] 20mg Take 1 Univers 20 mg 4-05 [id number] capsule by ity of capsule 00:00: mouth in [place] 00 the Medical morning. Branch azaTHIOprin 3-0 Yes [id number] 50mg Take 1 Univers e 50 mg 4-05 41265 tablet by ity of tablet 00:00: mouth in [place] 00 the Medical morning. Branch omeprazole 3-0 Yes [id number] 20mg Take 1 Univers 20 mg 4-05 [id number] capsule by ity of capsule 00:00: mouth in [place] 00 the Medical morning. Branch azaTHIOprin 3-0 Yes [id number] 50mg Take 1 Univers e 50 mg 4-05 92887 tablet by ity of tablet 00:00: mouth in [place] 00 the Medical morning. Branch omeprazole 3-0 3- No [id number] 20mg Take 1 Univers 20 mg 4-05 07-12 92854 capsule by ity of capsule 00:00: 00:00 mouth in [place] 00 :00 the Medical morning. Branch azaTHIOprin 3-0 3- No [id number] 50mg Take 1 Univers e 50 mg 4-05 07-12 [id number] tablet by ity o f tablet 00:00: 00:00 mouth in [place] 00 :00 the Medical morning. Branch omeprazole 2022-0 2022- No [id number] 20mg Take 1 Univers 20 mg 4-08 22- 26177 capsule by ity of capsule 00:00: 00:00 mouth in [place] 00 :00 the Medical morning. Branch azaTHIOprin 2022-0 2022- No [id number] 50mg Take 1 Univers e 50 mg 4- 03688 tablet by ity o f tablet 00:00: 00:00 mouth in [place] 00 :00 the Medical morning. Branch azaTHIOprin 2022-0 Yes [id number] 50mg Take 1 Univers e 50 mg 3-31 37072 tablet by ity of tablet 00:00: mouth in [place] 00 the Medical morning. Branch azaTHIOprin 2022-0 Yes [id number] 50mg Take 1 Univers e 50 mg 3-31 27918 tablet by ity of tablet 00:00: mouth in [place] 00 the Medical morning. Branch azaTHIOprin 2022-0 Yes [id number] 50mg Take 1 Univers e 50 mg 3-31 94626 tablet by ity of tablet 00:00: mouth in [place] 00 the Medical morning. Branch azaTHIOprin 2022-0 2022- No [id number] 50mg Take 1 Univers e 50 mg 3-31 - 77870 tablet by ity o f tablet 00:00: 00:00 mouth in [place] 00 :00 the Medical morning. Branch dicyclomine 2022-0 Yes [id number] 10mg Take 1 Univers 10 mg 3-21 26800 capsule by ity of capsule 00:00: mouth [place] 00 every 6 Medical (six) Branch hours as needed for Abdominal pain. dicyclomine 2022-0 Yes [id number] 10mg Take 1 Univers 10 mg 3-21 04695 capsule by ity of capsule 00:00: mouth [place] 00 every 6 Medical (six) Branch hours as needed for Abdominal pain. dicyclomine 2022-0 Yes [id number] 10mg Take 1 Univers 10 mg 3-21 [id number] capsule by ity of capsule 00:00: mouth [place] [address] every 6 Medical (six) Branch hours as needed for Abdominal pain. dicyclomine 2022-0 Yes [id number] 10mg Take 1 Univers 10 mg 3-21 80925 capsule by ity of capsule 00:00: mouth [place] 00 every 6 Medical (six) Branch hours as needed for Abdominal pain. dicyclomine 2023-0 Yes [id number] 10mg Take 1 Univers 10 mg 3-21 [id number] capsule by ity of capsule 00:00: mouth [place] 00 every 6 Medical (six) Branch hours as needed for Abdominal pain. dicyclomine 2023-0 Yes [id number] 10mg Take 1 Univers 10 mg 3-21 93950 capsule by ity of capsule 00:00: mouth [place] 00 every 6 Medical (six) Branch hours as needed for Abdominal pain. dicyclomine 2023-0 Yes [id number] 10mg Take 1 Univers 10 mg 3-21 36045 capsule by ity of capsule 00:00: mouth [place] 00 every 6 Medical (six) Branch hours as needed for Abdominal pain. dicyclomine 3-0 Yes [id number] 10mg Take 1 Univers 10 mg 3-21 [id number] capsule by ity of capsule 00:00: mouth [place] 00 every 6 Medical (six) Branch hours as needed for Abdominal pain. dicyclomine 2023-0 Yes [id number] 10mg Take 1 Univers 10 mg 3-21 06957 capsule by ity of capsule 00:00: mouth [place] 00 every 6 Medical (six) Branch hours as needed for Abdominal pain. dicyclomine 3-0 Yes [id number] 10mg Take 1 Univers 10 mg 3-21 34443 capsule by ity of capsule 00:00: mouth [place] 00 every 6 Medical (six) Branch hours as needed for Abdominal pain. dicyclomine 2023-0 Yes [id number] 10mg Take 1 [facility] 10 mg 3-21 [id number] capsule by ity of capsule 00:00: mouth [place] 00 every 6 Medical (six) Branch hours as needed for Abdominal pain. dicyclomine 2023-0 Yes [id number] 10mg Take 1 [facility] 10 mg 3-21 [id number] capsule by ity of capsule 00:00: mouth [place] 00 every 6 Medical (six) Branch hours as needed for Abdominal pain. dicyclomine 2023-0 Yes [id number] 10mg Take 1 [facility] 10 mg 3-21 [id number] capsule by ity of capsule 00:00: mouth [place] 00 every 6 Medical (six) Branch hours as needed for Abdominal pain. dicyclomine 3-0 Yes [id number] 10mg Take 1 [facility] 10 mg 3-21 [id number] capsule by ity of capsule 00:00: mouth [place] 00 every 6 Medical (six) Branch hours as needed for Abdominal pain. omeprazole 3-0 2023- No [id number] 20mg Take 1 [facility] 20 mg 3-21 06-20 [id number] capsule by ity of capsule 00:00: 04:59 mouth in [place] 00 :00 the Medical morning Branch for 90 days. omeprazole 2023-0 2023- No [id number] 20mg Take 1 [facility] 20 mg 3-21 06-20 [id number] capsule by ity of capsule 00:00: 04:59 mouth in [place] 00 :00 the Medical morning Branch for 90 days. omeprazole 3-0 2023- No [id number] 20mg Take 1 [facility] 20 mg 3-21 06-20 [id number] capsule by ity of capsule 00:00: 04:59 mouth in [place] 00 :00 the Medical morning Branch for 90 days. omeprazole 3-0 2023- No [id number] 20mg Take 1 [facility] 20 mg 3-21 06-20 [id number] capsule by ity of capsule 00:00: 04:59 mouth in [place] 00 :00 the Medical morning Branch for 90 days. omeprazole 2023-0 2023- No [id number] 20mg Take 1 [facility] 20 mg 3-21 06-20 [id number] capsule by ity of capsule 00:00: 04:59 mouth in [place] 00 :00 the Medical morning Branch for 90 days. omeprazole 3-0 2023- No [id number] 20mg Take 1 [facility] 20 mg 3-21 06-20 [id number] capsule by ity of capsule 00:00: 04:59 mouth in [place] 00 :00 the Medical morning Branch for 90 days. omeprazole 2023-0 2023- No [id number] 20mg Take 1 [facility] 20 mg 3-21 06-20 [id number] capsule by ity of capsule 00:00: 04:59 mouth in [place] 00 :00 the Medical morning Branch for 90 days. omeprazole 2023-0 2023- No [id number] 20mg Take 1 [facility] 20 mg 3-21 06-20 [id number] capsule by ity of capsule 00:00: 04:59 mouth in [place] 00 :00 the Medical morning Branch for 90 days. omeprazole 2022-0 2022- No [id number] 20mg Take 1 [facility] 20 mg 3-21 06-20 [id number] capsule by ity of capsule 00:00: 04:59 mouth in [place] 00 :00 the [facility] for 90 days. omeprazole 2022-0 2022- No [id number] 20mg Take 1 [facility] 20 mg 3-21 06-20 [id number] capsule by ity of capsule 00:00: 04:59 mouth in [place] 00 :00 the [facility] for 90 days. omeprazole 2022-0 2022- No [id number] 20mg Take 1 [facility] 20 mg 3-21 06-20 [id number] capsule by ity of capsule 00:00: 04:59 mouth in [place] 00 :00 the [facility] for 90 days. predniSONE 2022-0 2022- No [id number] Take 4 [facility] 10 mg 3-21 05-12 [id number] tablets by ity of tablet 00:00: 04:59 mouth [place] 00 :00 daily for Medical 30 days, Branch THEN 3 tablets daily for 7 days, THEN 2 tablets daily for 7 days, THEN 1 tablet daily for 7 days. predniSONE 2022-2022- No [id number] Take 4 [facility] 10 mg 3-21 05-12 [id number] tablets by ity of tablet 00:00: 04:59 mouth [place] 00 :00 daily for Medical 30 days, Branch THEN 3 tablets daily for 7 days, THEN 2 tablets daily for 7 days, THEN 1 tablet daily for 7 days. predniSONE 2022-0 2022- No [id number] Take 4 [facility] 10 mg 3-21 05-12 [id number] tablets by ity of tablet 00:00: 04:59 mouth [place] 00 :00 daily for Medical 30 days, Branch THEN 3 tablets daily for 7 days, THEN 2 tablets daily for 7 days, THEN 1 tablet daily for 7 days. predniSONE 2022-0 2022- No [id number] Take 4 [facility] 10 mg 3-21 05-12 [id number] tablets by ity of tablet 00:00: 04:59 mouth [place] 00 :00 daily for Medical 30 days, Branch THEN 3 tablets daily for 7 days, THEN 2 tablets daily for 7 days, THEN 1 tablet daily for 7 days. predniSONE 2022-0 2022- No [id number] Take 4 [facility] 10 mg 3-21 05-12 [id number] tablets by ity of tablet 00:00: 04:59 mouth [place] 00 :00 daily for Medical 30 days, Branch THEN 3 tablets daily for 7 days, THEN 2 tablets daily for 7 days, THEN 1 tablet daily for 7 days. predniSONE 2022- No [id number] Take 4 [facility] 10 mg 3-21 05-12 [id number] tablets by ity of tablet 00:00: 04:59 mouth [place] 00 :00 daily for Medical 30 days, Branch THEN 3 tablets daily for 7 days, THEN 2 tablets daily for 7 days, THEN 1 tablet daily for 7 days. predniSONE 2022- No [id number] Take 4 [facility] 10 mg 3-21 05-12 [id number] tablets by ity of tablet 00:00: 04:59 mouth [place] 00 :00 daily for Medical 30 days, Branch THEN 3 tablets daily for 7 days, THEN 2 tablets daily for 7 days, THEN 1 tablet daily for 7 days. predniSONE 2022- No [id number] Take 4 [facility] 10 mg 3-21 -12 [id number] tablets by ity of tablet 00:00: 04:59 mouth [place] 00 :00 daily for Medical 30 days, Branch THEN 3 tablets daily for 7 days, THEN 2 tablets daily for 7 days, THEN 1 tablet daily for 7 days. predniSONE 2022-2022- No [id number] Take 4 [facility] 10 mg 3-21 -12 [id number] tablets by ity of tablet 00:00: 04:59 mouth [place] 00 :00 daily for Medical 30 days, Branch THEN 3 tablets daily for 7 days, THEN 2 tablets daily for 7 days, THEN 1 tablet daily for 7 days. predniSONE 2022- No [id number] Take 4 [facility] 10 mg 3-21 05-12 [id number] tablets by ity of tablet 00:00: 04:59 mouth [place] 00 :00 daily for Medical 30 days, Branch THEN 3 tablets daily for 7 days, THEN 2 tablets daily for 7 days, THEN 1 tablet daily for 7 days. predniSONE 2022- No [id number] Take 4 [facility] 10 mg 3-21 05-12 [id number] tablets by ity of tablet 00:00: 04:59 mouth [place] 00 :00 daily for Medical 30 days, Branch THEN 3 tablets daily for 7 days, THEN 2 tablets daily for 7 days, THEN 1 tablet daily for 7 days. predniSONE 2022- No [id number] Take 4 [facility] 10 mg 3-21 05-12 [id number] tablets by ity of tablet 00:00: 04:59 mouth [place] 00 :00 daily for Medical 30 days, Branch THEN 3 tablets daily for 7 days, THEN 2 tablets daily for 7 days, THEN 1 tablet daily for 7 days. predniSONE 2022-2022- No [id number] Take 4 [facility] 10 mg 3-21 05-12 [id number] tablets by ity of tablet 00:00: 04:59 mouth [place] 00 :00 daily for Medical 30 days, Branch THEN 3 tablets daily for 7 days, THEN 2 tablets daily for 7 days, THEN 1 tablet daily for 7 days. predniSONE 2022-2022- No [id number] Take 4 [facility] 10 mg 3-21 05-12 [id number] tablets by ity of tablet 00:00: 04:59 mouth [place] 00 :00 daily for Medical 30 days, Branch THEN 3 tablets daily for 7 days, THEN 2 tablets daily for 7 days, THEN 1 tablet daily for 7 days. predniSONE 2022- No [id number] Take 4 [facility] 10 mg 3-21 05-12 [id number] tablets by ity of tablet 00:00: 04:59 mouth [place] 00 :00 daily for Medical 30 days, Branch THEN 3 tablets daily for 7 days, THEN 2 tablets daily for 7 days, THEN 1 tablet daily for 7 days. predniSONE 2022-2022- No [id number] Take 4 [facility] 10 mg 3-21 05-12 [id number] tablets by ity of tablet 00:00: 04:59 mouth [place] 00 :00 daily for Medical 30 days, Branch THEN 3 tablets daily for 7 days, THEN 2 tablets daily for 7 days, THEN 1 tablet daily for 7 days. predniSONE 2022- No [id number] Take 4 [facility] 10 mg 3-21 05-12 [id number] tablets by ity of tablet 00:00: 04:59 mouth [place] 00 :00 daily for Medical 30 days, Branch THEN 3 tablets daily for 7 days, THEN 2 tablets daily for 7 days, THEN 1 tablet daily for 7 days. predniSONE 2022- No [id number] Take 4 [facility] 10 mg 3-21 05-12 [id number] tablets by ity of tablet 00:00: 04:59 mouth [place] 00 :00 daily for Medical 30 days, Branch THEN 3 tablets daily for 7 days, THEN 2 tablets daily for 7 days, THEN 1 tablet daily for 7 days. dicyclomine 3-0 2022- No [id number] 10mg Take 1 [facility] 10 mg -06 08- [id number] capsule by ity of capsule 00:00: 00:00 mouth [place] 00 :00 every 6 Medical (six) Branch hours as needed for Abdominal pain. dicyclomine 3-0 2022- No [id number] 10mg Take 1 [facility] 10 mg -06 08- 60092 capsule by ity of capsule 00:00: 00:00 mouth [place] 00 :00 every 6 Medical (six) Branch hours as needed for Abdominal pain. dicyclomine 3-0 2022- No [id number] 10mg Take 1 [facility] 10 mg -06 08-00 capsule by ity of capsule 00:00: 00:00 mouth [place] 00 :00 every 6 Medical (six) Branch hours as needed for Abdominal pain. omeprazole 3-0 2022- No [id number] 20mg Take 1 [facility] 20 mg -06 08- [id number] capsule by ity of capsule 00:00: 00:00 mouth in [place] 00 :00 the Medical morning Branch for 90 days. solifenacin 3-0 Yes [id number] 10mg Take 1 [facility] (VESICARE) 3-10 tablet by ity of 10 mg 00:00: mouth in [place] tablet 00 the Medical morning. Branch solifenacin 3-0 Yes [id number] 10mg Take 1 [facility] (VESICARE) 3-10 tablet by ity of 10 mg 00:00: mouth in [place] tablet 00 the Medical morning. Branch solifenacin 2023-0 Yes [id number] 10mg Take 1 [facility] (VESICARE) 3-10 tablet by ity of 10 mg 00:00: mouth in [place] tablet 00 the Medical morning. Branch solifenacin 2023-0 Yes [id number] 10mg Take 1 [facility] (VESICARE) 3-10 tablet by ity of 10 mg 00:00: mouth in [place] tablet 00 the Medical morning. Branch solifenacin 2023-0 Yes [id number] 10mg Take 1 [facility] (VESICARE) 3-10 tablet by ity of 10 mg 00:00: mouth in [place] tablet 00 the Medical morning. Branch solifenacin 2023-0 Yes [id number] 10mg Take 1 [facility] (VESICARE) 3-10 tablet by ity of 10 mg 00:00: mouth in [place] tablet 00 the Medical morning. Branch solifenacin 2023-0 Yes [id number] 10mg Take 1 [facility] (VESICARE) 3-10 tablet by ity of 10 mg 00:00: mouth in [place] tablet 00 the Medical morning. Branch solifenacin 2023-0 Yes [id number] 10mg Take 1 [facility] (VESICARE) 3-10 tablet by ity of 10 mg 00:00: mouth in [place] tablet 00 the Medical morning. Branch solifenacin 2023-0 Yes [id number] 10mg Take 1 [facility] (VESICARE) 3-10 tablet by ity of 10 mg 00:00: mouth in [place] tablet 00 the Medical morning. Branch solifenacin 2023-0 Yes [id number] 10mg Take 1 [facility] (VESICARE) 3-10 tablet by ity of 10 mg 00:00: mouth in [place] tablet 00 the Medical morning. Branch solifenacin 2023-0 Yes [id number] 10mg Take 1 [facility] (VESICARE) 3-10 tablet by ity of 10 mg 00:00: mouth in [place] tablet 00 the Medical morning. Branch solifenacin 2023-0 Yes [id number] 10mg Take 1 [facility] (VESICARE) 3-10 tablet by ity of 10 mg 00:00: mouth in [place] tablet 00 the Medical morning. Branch solifenacin 2023-0 Yes [id number] 10mg Take 1 [facility] (VESICARE) 3-10 tablet by ity of 10 mg 00:00: mouth in [place] tablet 00 the Medical morning. Branch solifenacin 2023-0 Yes [id number] 10mg Take 1 [facility] (VESICARE) 3-10 tablet by ity of 10 mg 00:00: mouth in [place] tablet 00 the Medical morning. Branch solifenacin 2023-0 Yes [id number] 10mg Take 1 [facility] (VESICARE) 3-10 tablet by ity of 10 mg 00:00: mouth in [place] tablet 00 the Medical morning. Branch solifenacin 2023-0 Yes [id number] 10mg Take 1 [facility] (VESICARE) 3-10 tablet by ity of 10 mg 00:00: mouth in [place] tablet 00 the Medical morning. Branch solifenacin 2023-0 Yes [id number] 10mg Take 1 [facility] (VESICARE) 3-10 tablet by ity of 10 mg 00:00: mouth in [place] tablet 00 the Medical morning. Branch solifenacin 2023-0 Yes [id number] 10mg Take 1 [facility] (VESICARE) 3-10 tablet by ity of 10 mg 00:00: mouth in [place] tablet 00 the Medical morning. Branch solifenacin 2023-0 Yes [id number] 10mg Take 1 [facility] (VESICARE) 3-10 tablet by ity of 10 mg 00:00: mouth in [place] tablet 00 the Medical morning. Branch solifenacin 2023-0 Yes [id number] 10mg Take 1 [facility] (VESICARE) 3-10 tablet by ity of 10 mg 00:00: mouth in [place] tablet 00 the Medical morning. Branch solifenacin 2023-0 Yes [id number] 10mg Take 1 [facility] (VESICARE) 3-10 tablet by ity of 10 mg 00:00: mouth in [place] tablet 00 the Medical morning. Branch solifenacin 2023-0 Yes [id number] 10mg Take 1 [facility] (VESICARE) 3-10 tablet by ity of 10 mg 00:00: mouth in [place] tablet 00 the Medical morning. Branch solifenacin 2023-0 Yes [id number] 10mg Take 1 [facility] (VESICARE) 3-10 tablet by ity of 10 mg 00:00: mouth in [place] tablet 00 the Medical morning. Branch solifenacin 2023-0 Yes [id number] 10mg Take 1 [facility] (VESICARE) 3-10 tablet by ity of 10 mg 00:00: mouth in [place] tablet 00 the Medical morning. Branch solifenacin 2023-0 Yes [id number] 10mg Take 1 [facility] (VESICARE) 3-10 tablet by ity of 10 mg 00:00: mouth in [place] tablet 00 the Medical morning. Branch solifenacin 2023-0 Yes [id number] 10mg Take 1 [facility] (VESICARE) 3-10 tablet by ity of 10 mg 00:00: mouth in [place] tablet 00 the Medical morning. Branch solifenacin 2023-0 Yes [id number] 10mg Take 1 [facility] (VESICARE) 3-10 tablet by ity of 10 mg 00:00: mouth in [place] tablet 00 the Medical morning. Branch solifenacin 2023-0 Yes [id number] 10mg Take 1 [facility] (VESICARE) 3-10 tablet by ity of 10 mg 00:00: mouth in [place] tablet 00 the Medical morning. Branch solifenacin 2023-0 Yes [id number] 10mg Take 1 [facility] (VESICARE) 3-10 tablet by ity of 10 mg 00:00: mouth in [place] tablet 00 the Medical morning. Branch solifenacin 3-0 Yes [id number] 10mg Take 1 [facility] (VESICARE) 3-10 tablet by ity of 10 mg 00:00: mouth in [place] tablet 00 the Medical morning. Branch solifenacin 3-0 Yes [id number] 10mg Take 1 [facility] (VESICARE) 3-10 tablet by ity of 10 mg 00:00: mouth in [place] tablet 00 the Medical morning. Branch solifenacin 3-0 Yes [id number] 10mg Take 1 [facility] (VESICARE) 3-10 tablet by ity of 10 mg 00:00: mouth in [place] tablet 00 the Medical morning. Branch FENTanyl PF 0 2022- No 75ug 75 mcg, Un shobha (SUBLIMAZE 06-22 Slow IV ity o f (PF)) 23:45: 22:58 Push, [place] injection 00 :00 ONCE, 1 Medical 75 mcg dose, On [place] Tue06/22/22 at 1745, STAT iopamidol 2022- No [id number] 87mL 87 mL, Univers (ISOVUE 06-22 Intravenou ity o f 370-500 mL) 22:00: 22:00 s, ONCE, 1 [place] injection 00 :00 dose, On Medica l 87 mL Tue06/22/22 Branch at 1600, Routine FENTanyl PF 0 2022- No 75ug 75 mcg, Un shobha (SUBLIMAZE 06-22 Slow IV ity o f (PF)) 20:30: 19:35 Push, [place] injection 00 :00 ONCE, 1 Medical 75 mcg dose, On [place] Tue06/22/22 at 1430, STAT metoclopram 2023-0 2023- No 10mg 10 mg, Uni vers marco HCl 06-22- Slow IV ity of (REGLAN) 19:30: 19:31 [...] Indication s: acute pain methylPREDN 3-0 Yes [id number] Take by [employer] 4 06-22 mouth ity of mg tablets 00:00: SEE-INSTRU [place] 00 CTIONS. Medical follow Branch package directions traMADoL 50 2022-0 Yes [id number] 50mg Take 1 Univ ers mg tablet 3-07 tablet by ity o f 00:00: mouth [place] 00 every 6 Medical (six) Branch hours as needed for Pain (scale 4-6). Indication s: acute pain methylPREDN 2022-0 Yes [id number] Take by [employer] 4 06-22 mouth ity of mg tablets 00:00: SEE-INSTRU [place] 00 CTIONS. Medical follow Branch package directions traMADoL 50 2022-0 Yes [id number] 50mg Take 1 Univ ers mg tablet 3-07 tablet by ity o f 00:00: mouth [place] 00 every 6 Medical (six) Branch hours as needed for Pain (scale 4-6). Indication s: acute pain methylPREDN 3-0 Yes [id number] Take by [employer] 4 06-22 mouth ity of mg tablets 00:00: SEE-INSTRU [place] 00 CTIONS. Medical follow Branch package directions traMADoL 50 2022-0 Yes [id number] 50mg Take 1 Univ ers mg tablet 3-07 tablet by ity o f 00:00: mouth [place] 00 every 6 Medical (six) Branch hours as needed for Pain (scale 4-6). Indication s: acute pain methylPREDN 3-0 Yes [id number] Take by [employer] 4 06-22 mouth ity of mg tablets 00:00: SEE-INSTRU [place] 00 CTIONS. Medical follow Branch package directions traMADoL 50 2022-0 Yes [id number] 50mg Take 1 Univ ers mg tablet 3-07 tablet by ity o f 00:00: mouth [place] 00 every 6 Medical (six) Branch hours as needed for Pain (scale 4-6). Indication s: acute pain methylPREDN 2022-0 Yes [id number] Take by [facility] 4 06-22 22850 mouth ity of mg tablets 00:00: SEE-INSTRU [...] (scale 4-6). Indication s: acute pain methylPREDN 2022- No [id number] Take by [place] [id number] 06-22 05432 mouth ity of mg tablets 00:00: 00:00 SEE-INSTRU [place] 00 :00 CTIONS. Medical follow Branch package directions methylPREDN 2022- No [id number] Take by [place] [id number] 06-22 [id number] mouth ity of mg tablets 00:00: 00:00 SEE-INSTRU [place] 00 :00 CTIONS. Medical follow Branch package directions methylPREDN 2022-2022- No [id number] Take by [place] [id number] 06-22 [id number] mouth ity of mg tablets 00:00: 00:00 SEE-INSTRU [place] 00 :00 CTIONS. Medical follow Branch package directions methylPREDN 2022-0 2022- No [id number] Take by [place] [id number] 06-22 [id number] mouth ity of mg tablets 00:00: 00:00 SEE-INSTRU [place] 00 :00 CTIONS. Medical follow Branch package directions cyclobenzap 2022-2022- No 10mg Take 10 mg Univers rine 10 mg 05-19 by mouth ity of tablet 10:09: 00:00 as needed [place] 21 :00 for Muscle Medical Spasms. Branch cyclobenzap 2022- No 10mg Take 10 mg [facility] rine 10 mg 05-19 by mouth ity of tablet 10:09: 00:00 as needed [place] 21 :00 for Muscle Medical Spasms. Branch solifenacin 2022- No [id number] 10mg Take 1 [facility] (VESICARE) 05-19 tablet by ity of 10 mg 00:00: 05:59 mouth in [place] tablet 00 :00 the Medical morning [place] for 30 days. solifenacin 2022- No [id number] 10mg Take 1 [facility] (VESICARE) 05-19 tablet by ity of 10 mg 00:00: 05:59 mouth in [place] tablet 00 :00 the Medical morning Branch for 30 days. solifenacin 2022- No [id number] 10mg Take 1 [facility] (VESICARE) 05-19 tablet by ity of 10 mg 00:00: 05:59 mouth in [place] tablet 00 :00 the Medical morning [place] for 30 days. fluconazole 2022- No [id number] 150mg Take 1 [facility] (DIFLUCAN) 05-18 tablet [...] Muscle Medical Spasms. Branch fluconazole 2021-04- No [id number] 150mg Take 1 [facility] (DIFLUCAN) 2-03 29- tablet by ity of 150 mg 00:00: 05:59 mouth [place] tablet 00 :00 now for 1 Medical dose. Branch fluconazole 2021-04- No [id number] 150mg Take 1 [facility] (DIFLUCAN) 2-13 tablet by ity of 150 mg 00:00: 05:59 mouth [place] tablet 00 :00 now for 1 Medical dose. Branch fluconazole 2021-04- No [id number] 150mg Take 1 [facility] (DIFLUCAN) 2- 12-13 tablet by ity of 150 mg 00:00: 05:59 mouth [place] tablet 00 :00 now for 1 Medical dose. Branch ampicillin 2021-04- No [id number] 500mg Take 1 [facility] 500 mg 05-29-19 capsule by ity of capsule 00:00: 05:59 mouth [place] 00 :00 every 6 Medical (six) Branch hours for 7 days. ampicillin 2021-2021- No [id number] 500mg Take 1 [facility] 500 mg 05-29- capsule by ity of capsule 00:00: 05:59 mouth [place] 00 :00 every 6 Medical (six) Branch hours for 7 days. ampicillin 2021-04- No [id number] 500mg Take 1 [facility] 500 mg 05-29- capsule by ity of capsule 00:00: 05:59 mouth [place] 00 :00 every 6 Medical (six) Branch hours for 7 days. ampicillin 2021-04- No [id number] 500mg Take 1 [facility] 500 mg 05-29- capsule by ity of capsule 00:00: 05:59 mouth [place] 00 :00 every 6 Medical (six) Branch hours for 7 days. ampicillin 2021-2021- No [id number] 500mg Take 1 [facility] 500 mg 05-29-19 capsule by ity of capsule 00:00: 05:59 mouth [place] 00 :00 every 6 Medical (six) Branch hours for 7 days. ampicillin 2021-2021- No [id number] 500mg Take 1 [facility] 500 mg 05-29-19 capsule by ity of capsule 00:00: 05:59 mouth [place] 00 :00 every 6 Medical (six) Branch hours for 7 days. triamcinolo 2021-04- No [id number] 40mg Univers ne 04-28 ity of acetonide 20:15: 19:31 [place] (KENALOG) 00 :00 Medical injection Branch 40 mg triamcinolo 2021-04- No [id number] 40mg 40 mg, Univers ne 04-28 Intramuscu ity of acetonide 20:15: 19:31 [place], ONCE, [place] (KENALOG) 00 :00 1 dose, On Medi suleiman injection Fri Branch 40 mg 02/26/22 at 1415, Routine triamcinolo 2021-04- No [id number] 40mg Univers ne 04-28 ity of acetonide 20:15: 19:31 [place] (KENALOG) 00 :00 Medical injection Branch 40 mg triamcinolo 2021-04- No [id number] 40mg 40 mg, Univers ne 04-28 Intramuscu ity of acetonide 20:15: 19:31 lar, ONCE, [place] (KENALOG) 00 :00 1 dose, On Medi suleiman injection Fri Branch 40 mg 02/26/22 at 1415, Routine triamcinolo 2021-04 Yes [id number] Apply to [facility] ne 1-11 area(s) 2 ity of acetonide 00:00: (two) [place] 0.1 % 00 times Medical ointment daily. [place] triamcinolo 2021-04 Yes [id number] Apply to Univers ne 1-11 area(s) 2 ity of acetonide 00:00: (two) [place] 0.1 % 00 times Medical ointment daily. Branch triamcinolo 2021-04 Yes [id number] Apply to [facility] ne 1-11 area(s) 2 ity of acetonide 00:00: (two) [place] 0.1 % 00 times Medical ointment daily. Branch triamcinolo 2021-04 Yes [id number] Apply to [facility] ne 1-11 area(s) 2 ity of acetonide 00:00: (two) [place] 0.1 % 00 times Medical ointment daily. Branch triamcinolo 2021-04 Yes [id number] Apply to [facility] ne 1-11 area(s) 2 ity of acetonide 00:00: (two) [place] 0.1 % 00 times Medical ointment daily. Branch triamcinolo 2021-04 Yes [id number] Apply to [facility] ne 1-11 area(s) 2 ity of acetonide 00:00: (two) [place] 0.1 % 00 times Medical ointment daily. Cesar valdesamcincatrachito 2021-04 Yes [id number] Apply to [facility] ne 1-11 area(s) 2 ity of acetonide 00:00: (two) [place] 0.1 % 00 times Medical ointment daily. Cesar valdesamcincatrachito 2021-04 Yes [id number] Apply to [facility] ne 1-11 area(s) 2 ity of acetonide 00:00: (two) [place] 0.1 % 00 times Medical ointment daily. [facility] valdesamcinolo 2021-04 Yes [id number] Apply to [facility] ne 1-11 area(s) 2 ity of acetonide 00:00: (two) [place] 0.1 % 00 times Medical ointment daily. Cesar valdesamcincatrachito 2021-04 Yes [id number] Apply to [facility] 1-11 area(s) 2 ity of acetonide 00:00: (two) [place] 0.1 % 00 times Medical ointment daily. Cesar valdesamcincatrachito 2021-04 Yes [id number] Apply to [facility] 1-11 area(s) 2 ity of acetonide 00:00: (two) [place] 0.1 % 00 times Medical ointment daily. Cesar valdesamcincatrachito 2021-04- No [id number] Apply to [facility] -11 05-17 area(s) 2 ity of acetonide 00:00: 00:00 (two) [place] 0.1 % 00 :00 times Medical ointment daily. Cesar valdesamcincatrachito 2021-04- No [id number] Apply to [facility] 1-11 05-17 area(s) 2 ity of acetonide 00:00: 00:00 (two) [place] 0.1 % 00 :00 times Medical ointment daily. Cesar triamcinolo 2021-04- No [id number] Apply to [facility] 1-11 05-17 area(s) 2 ity of acetonide 00:00: 00:00 (two) [place] 0.1 % 00 :00 times Medical ointment daily. Cesar triamcinolo 2021-04- No [id number] Apply to [facility] 1-11 05-17 area(s) 2 ity of acetonide 00:00: 00:00 (two) [place] 0.1 % 00 :00 times Medical ointment daily. Branch predniSONE 2021-04- No [id number] 40mg Take 2 [facility] 20 mg 04-28 tablets by ity of tablet 00:00: 05:59 mouth in [place] 00 :00 the Medical morning Branch for 5 days. predniSONE 2021-04- No [id number] 40mg Take 2 [facility] 20 mg 04-28 tablets by ity of tablet 00:00: 05:59 mouth in [place] 00 :00 the [facility] morning Branch for 5 days. metroNIDAZO 2021-04- No [id number] 500mg Take 1 Univers LE (FLAGYL) 04-26 tablet by it y of 500 mg 00:00: 05:59 mouth [place] tablet 00 :00 every 12 [facility] ([facility]) Branch hours for 7 days. metroNIDAZO 2021-04- No [id number] 500mg Take 1 [facility] LE (FLAGYL) 04-26 tablet by it y of 500 mg 00:00: 05:59 mouth [place] tablet 00 :00 every 12 [facility] ([facility]) Branch hours for 7 days. metroNIDAZO 2021-04- No [id number] 500mg Take 1 [facility] LE (FLAGYL) 04-26 tablet by it y of 500 mg 00:00: 05:59 mouth [place] tablet 00 :00 every 12 [facility] ([facility]) Branch hours for 7 days. fluconazole 2021-04- No [id number] 150mg Take 1 [facility] (DIFLUCAN) 04-26 tablet by ity of 150 mg 00:00: 05:59 mouth [place] tablet 00 :00 every 72 Medical ([facility] Branch wo) hours for 2 doses. fluconazole 2021-04- No [id number] 150mg Take 1 [facility] (DIFLUCAN) 04-26 tablet by ity of 150 mg 00:00: 05:59 mouth [place] tablet 00 :00 every 72 Medical ([facility] Branch wo) hours for 2 doses. fluconazole 2021-04- No [id number] 150mg Take 1 [facility] (DIFLUCAN) 04-26 tablet by ity of 150 mg 00:00: 05:59 mouth [place] tablet 00 :00 every 72 Medical ([facility] Branch wo) hours for 2 doses. Nitrofurant 2021-04- No [id number] 100mg Take 1 [facility] oin&Nit. 04-24- capsule by ity of Macrocryst 00:00: 05:59 mouth in [place] (MACROBID) 00 :00 the Medical 100 mg morning Branch capsule and 1 capsule in the evening. Take with meals. Do all this for 5 days. Nitrofurant 2021-04- No [id number] 100mg Take 1 [facility] oin&Nit. 04-24- capsule by ity of [place] 00:00: 05:59 [place]CR[place]ID[place] 00 :00 the Medical 100 mg morning Branch capsule and 1 capsule in the evening. Take with meals. Do all this for 5 days. Nitrofurant 2021-04- No [id number] 100mg Take 1 [facility] oin&Nit. 04-24 capsule by ity of [place] 00:00: 05:59 [place] 00 :00 the [facility] 100 mg morning Branch capsule and 1 capsule in the evening. Take with meals. Do all this for 5 days. Nitrofurant 2021-04- No [id number] 100mg Take 1 [facility] oin&Nit. 04-24 capsule by ity of [place] 00:00: 05:59 [place] ([place]CROBID[place] 00 :00 the Medical 100 mg morning Branch capsule and 1 capsule in the evening. Take with meals. Do all this for 5 days. Nitrofurant 2021-04- No [id number] 100mg Take 1 [facility] oin&Nit. 04-24 capsule by it[facility] of [place] 00:00: 05:59 [place]CROBID[place] 00 :00 the Medical 100 mg morning Branch capsule and 1 capsule in the evening. Take with meals. Do all this for 5 days. simethicone 2021- No Take by Shaji yeager (GAS-X -28 10- mouth. ity of ORAL) 17:48: 00:00 [place] [...] [place] 32 times Medical daily. Branch acetaminoph 2021-2- No [id number] 650mg Take 2 Univers en 6-21 -13 tablets by ity of (TYLENOL) 00:00: 00:00 mouth [place] 325 mg 00 :00 every 6 Medical tablet (six) Branch hours as needed for Pain (scale 1-3) or Pain (scale 4-6). simethicone 2021-0 2- No [id number] 80mg Take 1 Univers 80 mg 6-21 -13 tablet by ity of chewable 00:00: 00:00 mouth [place] tablet 00 :00 after Medical meals and Branch at bedtime. ibuprofen 2021-0 2- No [id number] 600mg Take 1 Univers 600 mg 6-21 [...] COVID-19 2021-10-09 Completed Unive rsity of PFIZER NIAT-SUCROSE 00:00:00 [...] y of Vaccine Quad .5 mL 00:00:00 [facility] IM 6+ MO Branch Influenza Virus 2020-01-21 Completed Universit y of Vaccine Quad .5 mL 00:00:00 [facility] IM 6+ MO Branch TDAP 2018-09-26 Completed University of 00:00:00 [facility] TDAP 2018-09-26 Completed University of 00:00:00 [facility] TDAP 2018-09-26 Completed University of 00:00:00 [facility] TDAP 2018-09-26 Completed University of 00:00:00 [facility] TDAP 2018-09-26 Completed University of 00:00:00 [facility] TDAP 2018-09-26 Completed University of 00:00:00 [facility] TDAP 2018-09-26 Completed University of 00:00:00 [facility] TDAP 2018-09-26 Completed University of 00:00:00 [facility] TDAP 2018-09-26 Completed University of 00:00:00 [facility] [place] TDAP 2018-09-26 Completed University of 00:00:00 [facility] TDAP 2018-09-26 Completed University of 00:00:00 [facility] TDAP 2018-09-26 Completed University of 00:00:00 [facility] TDAP 2018-09-26 Completed University of 00:00:00 [facility] TDAP 2018-09-26 Completed University of 00:00:00 [facility] TDAP 2018-09-26 Completed University of 00:00:00 [facility] TDAP 2018-09-26 Completed University of 00:00:00 [facility] [place] TDAP 2018-09-26 Completed University of 00:00:00 [facility] TDAP 2018-09-26 Completed University of 00:00:00 [facility] TDAP 2018-09-26 Completed University of 00:00:00 [facility] Branch TDAP 2018-09-26 Completed University of 00:00:00 [facility] TDAP 2018-09-26 Completed University of 00:00:00 [place] [facility] [place] TDAP 2018-09-26 Completed University of 00:00:00 [facility] TDAP 2018-09-26 Completed University of 00:00:00 [facility] TDAP 2018-09-26 Completed University of 00:00:00 [facility] TDAP 2018-09-26 Completed University of 00:00:00 [facility] TDAP 2018-09-26 Completed University of 00:00:00 [facility] TDAP 2018-09-26 Completed University of 00:00:00 [facility] TDAP 2018-09-26 Completed University of 00:00:00 [facility] TDAP 2018-09-26 Completed University of 00:00:00 [facility] TDAP 2018-09-26 Completed University of 00:00:00 [facility] TDAP 2018-09-26 Completed University of 00:00:00 [facility] TDAP 2018-09-26 Completed University of 00:00:00 [facility] TDAP 2018-09-26 Completed University of 00:00:00 [facility] TDAP 2018-09-26 Completed University of 00:00:00 [facility] TDAP 2018-09-26 Completed University of 00:00:00 [facility] TDAP 2018-09-26 Completed University of 00:00:00 [facility] TDAP 2018-09-26 Completed University of 00:00:00 [facility] TDAP 2018-09-26 Completed University of 00:00:00 [facility] TDAP 2018-09-26 Completed University of 00:00:00 [facility] TDAP 2018-09-26 Completed University of 00:00:00 [facility] TDAP 2018-09-26 Completed University of 00:00:00 [facility] TDAP 2018-09-26 Completed University of 00:00:00 [facility] TDAP 2018-09-26 Completed University of 00:00:00 [facility] TDAP 2018-09-26 Completed University of 00:00:00 [facility] TDAP 2018-09-26 Completed University of 00:00:00 [facility] TDAP 2018-09-26 Completed University of 00:00:00 [facility] TDAP 2018-09-26 Completed University of 00:00:00 [facility] TDAP 2018-09-26 Completed University of 00:00:00 [facility] TDAP 2018-09-26 Completed University of 00:00:00 [facility] TDAP 2018-09-26 Completed University of 00:00:00 [facility] TDAP 2018-09-26 Completed University of 00:00:00 [facility] TDAP 2018-09-26 Completed University of 00:00:00 [facility] TDAP 2018-09-26 Completed University of 00:00:00 [facility] TDAP 2018-09-26 Completed University of 00:00:00 [facility] TDAP 2018-09-26 Completed University of 00:00:00 [facility] TDAP 2018-09-26 Completed University of 00:00:00 [facility] TDAP 2018-09-26 Completed University of 00:00:00 [facility] TDAP 2018-09-26 Completed University of 00:00:00 [facility] TDAP 2018-09-26 Completed University of 00:00:00 [facility] TDAP 2018-09-26 Completed University of 00:00:00 [facility] TDAP 2018-09-26 Completed University of 00:00:00 [facility] TDAP 2018-09-26 Completed University of 00:00:00 [facility] TDAP 2018-09-26 Completed University of 00:00:00 [facility] TDAP 2018-09-26 Completed University of 00:00:00 [facility] TDAP 2018-09-26 Completed University of 00:00:00 [facility] TDAP 2018-09-26 Completed University of 00:00:00 [facility] TDAP 2018-09-26 Completed University of 00:00:00 [facility] Influenza Virus 2018-04-21 Completed Universit y of Vaccine Quad .5 mL 00:00:00 [place] [facility] 6+ MO Branch Influenza Virus 2018-04-21 Completed Universit y of Vaccine Quad .5 mL 00:00:00 [place] [facility] IM 6+ MO Branch Influenza Virus [...] y of Vaccine Quad .5 mL 00:00:00 [place] [facility] IM 6+ MO Branch Influenza Virus 2018-04-21 Completed Universit y of Vaccine Quad .5 mL 00:00:00 [place] [facility] 6+ MO Branch Influenza Virus 2018-04-21 Completed Universit y of Vaccine Quad .5 mL 00:00:00 [place] [facility] 6+ MO Branch Influenza Virus 2018-04-21 Completed Universit y of Vaccine Quad .5 mL 00:00:00 [place] [facility] IM 6+ MO Branch Influenza Virus 2018-04-21 Completed Universit y of Vaccine Quad .5 mL 00:00:00 [place] [facility] 6+ MO Branch Influenza Virus [...] y of Vaccine Quad .5 mL 00:00:00 [place] [facility] 6+ MO Branch Influenza Virus [...] y of Vaccine Quad .5 mL 00:00:00 [place] [facility] IM 6+ MO Branch Influenza Virus 2018-04-21 Completed Universit y of Vaccine Quad .5 mL 00:00:00 [place] [facility] 6+ MO Branch Influenza Virus 2018-04-21 Completed Universit y of Vaccine Quad .5 mL 00:00:00 [place] [facility] 6+ MO Branch Influenza Virus 2018-04-21 Completed Universit y of Vaccine Quad .5 mL 00:00:00 [place] [facility] 6+ MO Branch Influenza Virus 2018-04-21 Completed Universit y of Vaccine Quad .5 mL 00:00:00 [place] [facility] 6+ MO Branch Influenza Virus 2018-04-21 Completed Universit y of Vaccine Quad .5 mL 00:00:00 [place] [facility] 6+ MO Branch Influenza Virus 2018-04-21 [...] y of Vaccine Quad .5 mL 00:00:00 [place] [facility] IM 6+ MO Branch Influenza Virus 2018-04-21 Completed Universit y of Vaccine Quad .5 mL 00:00:00 [place] [facility] 6+ MO Branch Influenza Virus [...] y of Vaccine Quad .5 mL 00:00:00 [place] [facility] IM 6+ MO Branch Influenza Virus 2018-04-21 Completed Universit y of Vaccine Quad .5 mL 00:00:00 [place] [facility] IM 6+ MO Branch Influenza Virus 2018-04-21 Completed Universit y of Vaccine Quad .5 mL 00:00:00 [place] [facility] IM 6+ MO Branch Influenza Virus 2018-04-21 Completed Universit y of Vaccine Quad .5 mL 00:00:00 [place] [facility] IM 6+ MO Branch Influenza Virus 2018-04-21 Completed Universit y of Vaccine Quad .5 mL 00:00:00 [facility] 6+ MO Branch Influenza Virus [...] y of Vaccine Quad .5 mL 00:00:00 [place] [facility] 6+ MO Branch Influenza Virus 2018-04-21 Completed Universit y of Vaccine Quad .5 mL 00:00:00 [place] [facility] 6+ MO Branch Influenza Virus [...] y of Vaccine Quad .5 mL 00:00:00 [place] [facility] 6+ MO Branch Influenza Virus 2018-04-21 Completed Universit y of Vaccine Quad .5 mL 00:00:00 [facility] 6+ MO Branch HPV9 2016-02-13 Completed University of 00:00:00 [facility] HPV9 2016-02-13 Completed University of 00:00:00 [facility] HPV9 2016-02-13 Completed University of 00:00:00 [place] [facility] HPV9 2016-02-13 Completed University of 00:00:00 [facility] HPV9 2016-02-13 Completed University of 00:00:00 [place] [facility] HPV9 2016-02-13 Completed University of 00:00:00 [place] [facility] HPV9 2016-02-13 Completed University of 00:00:00 [facility] HPV9 2016-02-13 Completed University of 00:00:00 [place] [facility] HPV9 2016-02-13 Completed University of 00:00:00 [place] [facility] HPV9 2016-02-13 Completed University of 00:00:00 [facility] HPV9 2016-02-13 Completed University of 00:00:00 [facility] HPV9 2016-02-13 Completed University of 00:00:00 [facility] HPV9 2016-02-13 Completed University of 00:00:00 [facility] HPV9 2016-02-13 Completed University of 00:00:00 [facility] HPV9 2016-02-13 Completed University of 00:00:00 [place] [facility] HPV9 2016-02-13 Completed University of 00:00:00 [place] [facility] HPV9 2016-02-13 Completed University of 00:00:00 [facility] HPV9 2016-02-13 Completed University of 00:00:00 [place] [facility] HPV9 2016-02-13 Completed University of 00:00:00 [facility] HPV9 2016-02-13 Completed University of 00:00:00 [facility] HPV9 2016-02-13 Completed University of 00:00:00 [facility] HPV9 2016-02-13 Completed University of 00:00:00 [facility] HPV9 2016-02-13 Completed University of 00:00:00 [facility] HPV9 2016-02-13 Completed University of 00:00:00 [facility] HPV9 2016-02-13 Completed University of 00:00:00 [facility] HPV9 2016-02-13 Completed University of 00:00:00 [place] [facility] HPV9 2016-02-13 Completed University of 00:00:00 [facility] Branch HPV9 2016-02-13 Completed University of 00:00:00 [facility] Branch HPV9 2016-02-13 Completed University of 00:00:00 [facility] HPV9 2016-02-13 Completed University of 00:00:00 [facility] Branch HPV9 2016-02-13 Completed University of 00:00:00 [place] [facility] HPV9 2016-02-13 Completed University of 00:00:00 [facility] HPV9 2016-02-13 Completed University of 00:00:00 [place] [facility] HPV9 2016-02-13 Completed University of 00:00:00 [facility] Branch HPV9 2016-02-13 Completed University of 00:00:00 [facility] HPV9 2016-02-13 Completed University of 00:00:00 [facility] HPV9 2016-02-13 Completed University of 00:00:00 [facility] HPV9 2016-02-13 Completed University of 00:00:00 [facility] HPV9 2016-02-13 Completed University of 00:00:00 [facility] HPV9 2016-02-13 Completed University of 00:00:00 [facility] HPV9 2016-02-13 Completed University of 00:00:00 [facility] HPV9 2016-02-13 Completed University of 00:00:00 [facility] HPV9 2016-02-13 Completed University of 00:00:00 [facility] HPV9 2016-02-13 Completed University of 00:00:00 [facility] HPV9 2016-02-13 Completed University of 00:00:00 [facility] HPV9 2016-02-13 Completed University of 00:00:00 [facility] HPV9 2016-02-13 Completed University of 00:00:00 [facility] HPV9 2016-02-13 Completed University of 00:00:00 [facility] HPV9 2016-02-13 Completed University of 00:00:00 [facility] HPV9 2016-02-13 Completed University of 00:00:00 [facility] HPV9 2016-02-13 Completed University of 00:00:00 [facility] HPV9 2016-02-13 Completed University of 00:00:00 [facility] HPV9 2016-02-13 Completed University of 00:00:00 [facility] HPV9 2016-02-13 Completed University of 00:00:00 [facility] HPV9 2016-02-13 Completed University of 00:00:00 [facility] HPV9 2016-02-13 Completed University of 00:00:00 [facility] HPV9 2016-02-13 Completed University of 00:00:00 [facility] HPV9 2016-02-13 Completed University of 00:00:00 [facility] HPV9 2016-02-13 Completed University of 00:00:00 [facility] HPV9 2016-02-13 Completed University of 00:00:00 [facility] HPV9 2016-02-13 Completed University of 00:00:00 [facility] HPV9 2016-02-13 Completed University of 00:00:00 [facility] HPV9 2016-02-13 Completed University of 00:00:00 [facility] HPV9 2016-02-13 Completed University of 00:00:00 [facility] HPV9 2016-02-13 Completed University of 00:00:00 [facility] HPV9 2016-02-13 Completed University of 00:00:00 [facility] HPV9 2016-02-13 Completed University of 00:00:00 [facility] HPV 2015-01-17 Completed University of 00:00:00 [facility] Meningococcal 2015-01-17 Completed University of Vaccine 00:00:00 [facility] HPV 2015-01-17 Completed University of 00:00:00 [facility] Meningococcal 2015-01-17 Completed University of Vaccine 00:00:00 [facility] HPV 2015-01-17 Completed University of 00:00:00 [facility] Meningococcal 2015-01-17 Completed University of Vaccine 00:00:00 [facility] HPV 2015-01-17 Completed University of 00:00:00 [facility] Meningococcal 2015-01-17 Completed University of Vaccine 00:00:00 [facility] HPV 2015-01-17 Completed University of 00:00:00 [facility] Meningococcal 2015-01-17 Completed University of Vaccine 00:00:00 [facility] HPV 2015-01-17 Completed University of 00:00:00 [facility] Meningococcal 2015-01-17 Completed University of Vaccine 00:00:00 [facility] HPV 2015-01-17 Completed University of 00:00:00 [facility] Meningococcal 2015-01-17 Completed University of Vaccine 00:00:00 [facility] HPV 2015-01-17 Completed University of 00:00:00 [facility] Meningococcal 2015-01-17 Completed University of Vaccine 00:00:00 [facility] HPV 2015-01-17 Completed University of 00:00:00 [facility] Meningococcal 2015-01-17 Completed University of Vaccine 00:00:00 [facility] HPV 2015-01-17 Completed University of 00:00:00 [facility] Meningococcal 2015-01-17 Completed University of Vaccine 00:00:00 [facility] HPV 2015-01-17 Completed University of 00:00:00 [facility] Meningococcal 2015-01-17 Completed University of Vaccine 00:00:00 [facility] HPV 2015-01-17 Completed University of 00:00:00 [facility] Meningococcal 2015-01-17 Completed University of Vaccine 00:00:00 [facility] HPV 2015-01-17 Completed University of 00:00:00 [facility] Meningococcal 2015-01-17 Completed University of Vaccine 00:00:00 [facility] HPV 2015-01-17 Completed University of 00:00:00 [facility] Meningococcal 2015-01-17 Completed University of Vaccine 00:00:00 [facility] HPV 2015-01-17 Completed University of 00:00:00 [facility] Meningococcal 2015-01-17 Completed University of Vaccine 00:00:00 [facility] HPV 2015-01-17 Completed University of 00:00:00 [facility] Meningococcal 2015-01-17 Completed University of Vaccine 00:00:00 [facility] HPV 2015-01-17 Completed University of 00:00:00 [facility] Meningococcal 2015-01-17 Completed University of Vaccine 00:00:00 [facility] HPV 2015-01-17 Completed University of 00:00:00 [facility] Meningococcal 2015-01-17 Completed University of Vaccine 00:00:00 [facility] HPV 2015-01-17 Completed University of 00:00:00 [facility] Meningococcal 2015-01-17 Completed University of Vaccine 00:00:00 [facility] HPV 2015-01-17 Completed University of 00:00:00 [facility] Meningococcal 2015-01-17 Completed University of Vaccine 00:00:00 [facility] HPV 2015-01-17 Completed University of 00:00:00 [facility] Meningococcal 2015-01-17 Completed University of Vaccine 00:00:00 [facility] HPV 2015-01-17 Completed University of 00:00:00 [facility] Meningococcal 2015-01-17 Completed University of Vaccine 00:00:00 [facility] HPV 2015-01-17 Completed University of 00:00:00 [facility] Meningococcal 2015-01-17 Completed University of Vaccine 00:00:00 [facility] HPV 2015-01-17 Completed University of 00:00:00 [facility] Meningococcal 2015-01-17 Completed University of Vaccine 00:00:00 [facility] HPV 2015-01-17 Completed University of 00:00:00 [facility] Meningococcal 2015-01-17 Completed University of Vaccine 00:00:00 [facility] HPV 2015-01-17 Completed University of 00:00:00 [facility] Meningococcal 2015-01-17 Completed University of Vaccine 00:00:00 [facility] HPV 2015-01-17 Completed University of 00:00:00 [facility] Meningococcal 2015-01-17 Completed University of Vaccine 00:00:00 [facility] HPV 2015-01-17 Completed University of 00:00:00 [facility] Meningococcal 2015-01-17 Completed University of Vaccine 00:00:00 [facility] HPV 2015-01-17 Completed University of 00:00:00 [facility] Meningococcal 2015-01-17 Completed University of Vaccine 00:00:00 [facility] HPV 2015-01-17 Completed University of 00:00:00 [facility] Meningococcal 2015-01-17 Completed University of Vaccine 00:00:00 [facility] HPV 2015-01-17 Completed University of 00:00:00 [facility] Meningococcal 2015-01-17 Completed University of Vaccine 00:00:00 [facility] HPV 2015-01-17 Completed University of 00:00:00 [facility] Meningococcal 2015-01-17 Completed University of Vaccine 00:00:00 [facility] HPV 2015-01-17 Completed University of 00:00:00 [facility] Meningococcal 2015-01-17 Completed University of Vaccine 00:00:00 [facility] HPV 2015-01-17 Completed University of 00:00:00 [facility] Meningococcal 2015-01-17 Completed University of Vaccine 00:00:00 [facility] HPV 2015-01-17 Completed University of 00:00:00 [facility] Meningococcal 2015-01-17 Completed University of Vaccine 00:00:00 [facility] HPV 2015-01-17 Completed University of 00:00:00 [facility] Meningococcal 2015-01-17 Completed University of Vaccine 00:00:00 [facility] HPV 2015-01-17 Completed University of 00:00:00 [facility] Meningococcal 2015-01-17 Completed University of Vaccine 00:00:00 [facility] HPV 2015-01-17 Completed University of 00:00:00 [facility] Meningococcal 2015-01-17 Completed University of Vaccine 00:00:00 [facility] HPV 2015-01-17 Completed University of 00:00:00 [facility] Meningococcal 2015-01-17 Completed University of Vaccine 00:00:00 [facility] HPV 2015-01-17 Completed University of 00:00:00 [facility] Meningococcal 2015-01-17 Completed University of Vaccine 00:00:00 [facility] HPV 2015-01-17 Completed University of 00:00:00 [facility] Meningococcal 2015-01-17 Completed University of Vaccine 00:00:00 [facility] HPV 2015-01-17 Completed University of 00:00:00 [facility] Meningococcal 2015-01-17 Completed University of Vaccine 00:00:00 [facility] HPV 2015-01-17 Completed University of 00:00:00 [facility] Meningococcal 2015-01-17 Completed University of Vaccine 00:00:00 [facility] HPV 2015-01-17 Completed University of 00:00:00 [facility] Meningococcal 2015-01-17 Completed University of Vaccine 00:00:00 [facility] HPV 2015-01-17 Completed University of 00:00:00 [facility] Meningococcal 2015-01-17 Completed University of Vaccine 00:00:00 [facility] HPV 2015-01-17 Completed University of 00:00:00 [facility] Meningococcal 2015-01-17 Completed University of Vaccine 00:00:00 [facility] HPV 2015-01-17 Completed University of 00:00:00 [facility] Meningococcal 2015-01-17 Completed University of Vaccine 00:00:00 [facility] HPV 2015-01-17 Completed University of 00:00:00 [facility] Meningococcal 2015-01-17 Completed University of Vaccine 00:00:00 [facility] HPV 2015-01-17 Completed University of 00:00:00 [facility] Meningococcal 2015-01-17 Completed University of Vaccine 00:00:00 [facility] HPV 2015-01-17 Completed University of 00:00:00 [facility] Meningococcal 2015-01-17 Completed University of Vaccine 00:00:00 [facility] HPV 2015-01-17 Completed University of 00:00:00 [facility] Meningococcal 2015-01-17 Completed University of Vaccine 00:00:00 [facility] HPV 2015-01-17 Completed University of 00:00:00 [facility] Meningococcal 2015-01-17 Completed University of Vaccine 00:00:00 [facility] HPV 2015-01-17 Completed University of 00:00:00 [facility] Meningococcal 2015-01-17 Completed [facility] Vaccine 00:00:00 [facility] HPV 2015-01-17 Completed [facility] 00:00:00 [facility] Meningococcal 2015-01-17 Completed [facility] Vaccine 00:00:00 [facility] HPV 2015-01-17 Completed [facility] 00:00:00 [facility] Meningococcal 2015-01-17 Completed [facility] Vaccine 00:00:00 [facility] HPV 2015-01-17 Completed [facility] 00:00:00 [facility] Meningococcal 2015-01-17 Completed [facility] Vaccine 00:00:00 [facility] HPV 2015-01-17 Completed [facility] 00:00:00 [facility] Meningococcal 2015-01-17 Completed [facility] Vaccine 00:00:00 [facility] HPV 2015-01-17 Completed [facility] 00:00:00 [facility] Meningococcal 2015-01-17 Completed [facility] Vaccine 00:00:00 [facility] HPV 2015-01-17 Completed [facility] 00:00:00 [facility] Meningococcal 2015-01-17 Completed [facility] Vaccine 00:00:00 [facility] HPV 2015-01-17 Completed [facility] 00:00:00 [facility] Meningococcal 2015-01-17 Completed [facility] Vaccine 00:00:00 [facility] HPV 2015-01-17 Completed [facility] 00:00:00 [facility] Meningococcal 2015-01-17 Completed [facility] Vaccine 00:00:00 [facility] HPV 2015-01-17 Completed [facility] 00:00:00 [facility] Meningococcal 2015-01-17 Completed [facility] Vaccine 00:00:00 [facility] HPV 2015-01-17 Completed [facility] 00:00:00 [facility] Meningococcal 2015-01-17 Completed [facility] Vaccine 00:00:00 [facility] HPV 2015-01-17 Completed [facility] 00:00:00 [facility] Meningococcal 2015-01-17 Completed [facility] Vaccine 00:00:00 [facility] HPV 2015-01-17 Completed [facility] 00:00:00 [facility] Meningococcal 2015-01-17 Completed [facility] Vaccine 00:00:00 [facility] HPV 2015-01-17 Completed [facility] 00:00:00 [facility] Meningococcal 2015-01-17 Completed [facility] Vaccine 00:00:00 [facility] HPV 2015-01-17 Completed [facility] 00:00:00 [facility] Meningococcal 2015-01-17 Completed [facility] Vaccine 00:00:00 [facility] Varicella 2011-03-01 Completed [facility] [...] 2011-03-01 Completed [facility] (varivax)(chicken 00:00:00 [place] [facility] HPV 2009-11-17 Completed [facility] 00:00:00 [facility] Meningococcal 2009-11-17 Completed [facility] Vaccine 00:00:00 [facility] TDAP 2009-11-17 Completed [facility] 00:00:00 [facility] HPV 2009-11-17 Completed [facility] 00:00:00 [facility] Meningococcal 2009-11-17 Completed [facility] Vaccine 00:00:00 [facility] TDAP 2009-11-17 Completed [facility] 00[facility]00:00 [facility] HPV 2009-11-17 Completed [facility] 00:00:00 [facility] Meningococcal 2009-11-17 Completed [facility] Vaccine 00:00:00 [facility] TDAP 2009-11-17 Completed [facility] 00[facility]00:00 [facility] HPV 2009-11-17 Completed [facility] 00:00:00 [facility] Meningococcal 2009-11-17 Completed [facility] Vaccine 00:00:00 [facility] TDAP 2009-11-17 Completed [facility] 00[facility]00:00 [facility] HPV 2009-11-17 Completed [facility] 00:00:00 [facility] Meningococcal 2009-11-17 Completed [facility] Vaccine 00:00:00 [facility] TDAP 2009-11-17 Completed [facility] 00[facility]00:00 [facility] HPV 2009-11-17 Completed [facility] 00:00:00 [facility] Meningococcal 2009-11-17 Completed [facility] Vaccine 00:00:00 [facility] TDAP 2009-11-17 Completed [facility] 00:00:00 [facility] HPV 2009-11-17 Completed [facility] 00:00:00 [facility] Meningococcal 2009-11-17 Completed [facility] Vaccine 00:00:00 [facility] TDAP 2009-11-17 Completed [facility] 00[facility]00:00 [facility] HPV 2009-11-17 Completed [facility] 00[facility]00:00 [facility] Meningococcal 2009-11-17 Completed [facility] Vaccine 00:00:00 [facility] TDAP 2009-11-17 Completed [facility] 00:00:00 [facility] HPV 2009-11-17 Completed [facility] 00:00:00 [facility] Meningococcal 2009-11-17 Completed [facility] Vaccine 00:00:00 [facility] TDAP 2009-11-17 Completed [facility] 00:00:00 [facility] HPV 2009-11-17 Completed [facility] 00:00:00 [facility] Meningococcal 2009-11-17 Completed [facility] Vaccine 00:00:00 [facility] TDAP 2009-11-17 Completed [facility] 00[facility]00:00 [facility] HPV 2009-11-17 Completed [facility] 00:00:00 [facility] Meningococcal 2009-11-17 Completed [facility] Vaccine 00:00:00 [facility] TDAP 2009-11-17 Completed [facility] 00[facility]00:00 [facility] HPV 2009-11-17 Completed [facility] 00:00:00 [facility] Meningococcal 2009-11-17 Completed [facility] Vaccine 00:00:00 [facility] TDAP 2009-11-17 Completed [facility] 00:00:00 [facility] HPV 2009-11-17 Completed [facility] 00:00:00 [facility] Meningococcal 2009-11-17 Completed [facility] Vaccine 00:00:00 [facility] TDAP 2009-11-17 Completed [facility] 00:00:00 [facility] HPV 2009-11-17 Completed [facility] 00:00:00 [facility] Meningococcal 2009-11-17 Completed [facility] Vaccine 00:00:00 [facility] TDAP 2009-11-17 Completed [facility] 00:00:00 [facility] HPV 2009-11-17 Completed [facility] 00:00:00 [facility] Meningococcal 2009-11-17 Completed [facility] Vaccine 00:00:00 [facility] TDAP 2009-11-17 Completed [facility] 00:00:00 [facility] HPV 2009-11-17 Completed [facility] 00:00:00 [facility] Meningococcal 2009-11-17 Completed [facility] Vaccine 00:00:00 [facility] TDAP 2009-11-17 Completed [facility] 00:00:00 [facility] HPV 2009-11-17 Completed [facility] 00:00:00 [facility] Meningococcal 2009-11-17 Completed [facility] Vaccine 00:00:00 [facility] TDAP 2009-11-17 Completed [facility] 00:00:00 [facility] HPV 2009-11-17 Completed [facility] 00:00:00 [facility] Meningococcal 2009-11-17 Completed [facility] Vaccine 00:00:00 [facility] TDAP 2009-11-17 Completed [facility] 00:00:00 [facility] HPV 2009-11-17 Completed [facility] 00:00:00 [facility] Meningococcal 2009-11-17 Completed [facility] Vaccine 00:00:00 [facility] TDAP 2009-11-17 Completed [facility] 00:00:00 [facility] HPV 2009-11-17 Completed [facility] 00[facility]00:00 [facility] Meningococcal 2009-11-17 Completed [facility] Vaccine 00:00:00 [facility] TDAP 2009-11-17 Completed [facility] 00[facility]00:00 [facility] HPV 2009-11-17 Completed [facility] 00:00:00 [facility] Meningococcal 2009-11-17 Completed [facility] Vaccine 00:00:00 [facility] TDAP 2009-11-17 Completed [facility] 00[facility]00:00 [facility] HPV 2009-11-17 Completed [facility] 00:00:00 [facility] Meningococcal 2009-11-17 Completed [facility] Vaccine 00:00:00 [facility] TDAP 2009-11-17 Completed [facility] 00[facility]00:00 [facility] HPV 2009-11-17 Completed [facility] 00:00:00 [facility] Meningococcal 2009-11-17 Completed [facility] Vaccine 00:00:00 [facility] TDAP 2009-11-17 Completed [facility] 00:00:00 [facility] HPV 2009-11-17 Completed [facility] 00:00:00 [facility] Meningococcal 2009-11-17 Completed [facility] Vaccine 00:00:00 [facility] TDAP 2009-11-17 Completed [facility] 00:00:00 [facility] HPV 2009-11-17 Completed [facility] 00:00:00 [facility] Meningococcal 2009-11-17 Completed [facility] Vaccine 00:00:00 [facility] TDAP 2009-11-17 Completed [facility] 00:00:00 [facility] HPV 2009-11-17 Completed [facility] 00:00:00 [facility] Meningococcal 2009-11-17 Completed [facility] Vaccine 00:00:00 [facility] TDAP 2009-11-17 Completed [facility] 00:00:00 [facility] HPV 2009-11-17 Completed [facility] 00:00:00 [facility] Meningococcal 2009-11-17 Completed [facility] Vaccine 00:00:00 [facility] TDAP 2009-11-17 Completed [facility] 00:00:00 [facility] HPV 2009-11-17 Completed [facility] 00:00:00 [facility] Meningococcal 2009-11-17 Completed [facility] Vaccine 00:00:00 [facility] TDAP 2009-11-17 Completed [facility] 00:00:00 [facility] HPV 2009-11-17 Completed [facility] 00:00:00 [facility] Meningococcal 2009-11-17 Completed [facility] Vaccine 00:00:00 [facility] TDAP 2009-11-17 Completed [facility] 00[facility]00:00 [facility] HPV 2009-11-17 Completed [facility] 00:00:00 [facility] Meningococcal 2009-11-17 Completed [facility] Vaccine 00:00:00 [facility] TDAP 2009-11-17 Completed [facility] 00[facility]00:00 [facility] HPV 2009-11-17 Completed [facility] 00:00:00 [facility] Meningococcal 2009-11-17 Completed [facility] Vaccine 00:00:00 [facility] TDAP 2009-11-17 Completed [facility] 00[facility]00:00 [facility] HPV 2009-11-17 Completed [facility] 00:00:00 [facility] Meningococcal 2009-11-17 Completed [facility] Vaccine 00:00:00 [facility] TDAP 2009-11-17 Completed [facility] 00:00:00 [facility] HPV 2009-11-17 Completed [facility] 00:00:00 [facility] Meningococcal 2009-11-17 Completed [facility] Vaccine 00:00:00 [facility] TDAP 2009-11-17 Completed [facility] 00:00:00 [facility] HPV 2009-11-17 Completed [facility] 00:00:00 [facility] Meningococcal 2009-11-17 Completed [facility] Vaccine 00:00:00 [facility] TDAP 2009-11-17 Completed [facility] 00:00:00 [facility] HPV 2009-11-17 Completed [facility] 00:00:00 [facility] Meningococcal 2009-11-17 Completed [facility] Vaccine 00:00:00 [facility] TDAP 2009-11-17 Completed [facility] 00:00:00 [facility] HPV 2009-11-17 Completed [facility] 00:00:00 [facility] Meningococcal 2009-11-17 Completed [facility] Vaccine 00:00:00 [facility] TDAP 2009-11-17 Completed [facility] 00:00:00 [facility] HPV 2009-11-17 Completed [facility] 00:00:00 [facility] Meningococcal 2009-11-17 Completed [facility] Vaccine 00:00:00 [facility] TDAP 2009-11-17 Completed [facility] 00:00:00 [facility] HPV 2009-11-17 Completed [facility] 00:00:00 [facility] Meningococcal 2009-11-17 Completed [facility] Vaccine 00:00:00 [facility] TDAP 2009-11-17 Completed [facility] 00:00:00 [facility] HPV 2009-11-17 Completed [facility] 00[facility]00:00 [facility] Meningococcal 2009-11-17 Completed [facility] Vaccine 00:00:00 [facility] TDAP 2009-11-17 Completed [facility] 00:00:00 [facility] HPV 2009-11-17 Completed [facility] 00:00:00 [facility] Meningococcal 2009-11-17 Completed [facility] Vaccine 00:00:00 [facility] TDAP 2009-11-17 Completed [facility] 00:00:00 [facility] HPV 2009-11-17 Completed [facility] 00:00:00 [facility] Meningococcal 2009-11-17 Completed [facility] Vaccine 00:00:00 [facility] TDAP 2009-11-17 Completed [facility] 00[facility]00:00 [facility] HPV 2009-11-17 Completed [facility] 00:00:00 [facility] Meningococcal 2009-11-17 Completed [facility] Vaccine 00:00:00 [facility] TDAP 2009-11-17 Completed [facility] 00:00:00 [facility] HPV 2009-11-17 Completed [facility] 00:00:00 [facility] Meningococcal 2009-11-17 Completed [facility] Vaccine 00:00:00 [facility] TDAP 2009-11-17 Completed [facility] 00:00:00 [facility] HPV 2009-11-17 Completed [facility] 00:00:00 [facility] Meningococcal 2009-11-17 Completed [facility] Vaccine 00:00:00 [facility] TDAP 2009-11-17 Completed [facility] 00:00:00 [facility] HPV 2009-11-17 Completed [facility] 00:00:00 [facility] Meningococcal 2009-11-17 Completed [facility] Vaccine 00:00:00 [facility] TDAP 2009-11-17 Completed [facility] 00:00:00 [facility] HPV 2009-11-17 Completed [facility] 00:00:00 [facility] Meningococcal 2009-11-17 Completed [facility] Vaccine 00:00:00 [facility] TDAP 2009-11-17 Completed [facility] 00:00:00 [facility] HPV 2009-11-17 Completed [facility] 00:00:00 [facility] Meningococcal 2009-11-17 Completed [facility] Vaccine 00:00:00 [facility] TDAP 2009-11-17 Completed [facility] 00:00:00 [facility] HPV 2009-11-17 Completed [facility] 00:00:00 [facility] Meningococcal 2009-11-17 Completed [facility] Vaccine 00:00:00 [facility] TDAP 2009-11-17 Completed [facility] 00[facility]00:00 [facility] HPV 2009-11-17 Completed [facility] 00:00:00 [facility] Meningococcal 2009-11-17 Completed [facility] Vaccine 00:00:00 [facility] TDAP 2009-11-17 Completed [facility] 00[facility]00:00 [facility] HPV 2009-11-17 Completed [facility] 00:00:00 [facility] Meningococcal 2009-11-17 Completed [facility] Vaccine 00:00:00 [facility] TDAP 2009-11-17 Completed [facility] 00[facility]00:00 [facility] HPV 2009-11-17 Completed [facility] 00:00:00 [facility] Meningococcal 2009-11-17 Completed [facility] Vaccine 00:00:00 [facility] TDAP 2009-11-17 Completed [facility] 00:00:00 [facility] HPV 2009-11-17 Completed [facility] 00:00:00 [facility] Meningococcal 2009-11-17 Completed [facility] Vaccine 00:00:00 [facility] TDAP 2009-11-17 Completed [facility] 00:00:00 [facility] HPV 2009-11-17 Completed [facility] 00[facility]00:00 [facility] Meningococcal 2009-11-17 Completed [facility] Vaccine 00:00:00 [facility] TDAP 2009-11-17 Completed [facility] 00:00:00 [facility] HPV 2009-11-17 Completed [facility] 00:00:00 [facility] Meningococcal 2009-11-17 Completed [facility] Vaccine 00:00:00 [facility] TDAP 2009-11-17 Completed [facility] 00:00:00 [facility] HPV 2009-11-17 Completed [facility] 00:00:00 [facility] Meningococcal 2009-11-17 Completed [facility] Vaccine 00:00:00 [facility] TDAP 2009-11-17 Completed [facility] 00:00:00 [facility] HPV 2009-11-17 Completed [facility] 00:00:00 [facility] Meningococcal 2009-11-17 Completed [facility] Vaccine 00:00:00 [facility] TDAP 2009-11-17 Completed [facility] 00:00:00 [facility] HPV 2009-11-17 Completed [facility] 00:00:00 [facility] Meningococcal 2009-11-17 Completed [facility] Vaccine 00:00:00 [facility] TDAP 2009-11-17 Completed [facility] 00:00:00 [facility] HPV 2009-11-17 Completed [facility] 00:00:00 [facility] Meningococcal 2009-11-17 Completed [facility] Vaccine 00:00:00 [facility] TDAP 2009-11-17 Completed [facility] 00:00:00 [facility] HPV 2009-11-17 Completed [facility] 00:00:00 [facility] Meningococcal 2009-11-17 Completed [facility] Vaccine 00:00:00 [facility] TDAP 2009-11-17 Completed [facility] 00[facility]00:00 [facility] HPV 2009-11-17 Completed [facility] 00:00:00 [facility] Meningococcal 2009-11-17 Completed [facility] Vaccine 00:00:00 [facility] TDAP 2009-11-17 Completed [facility] 00[facility]00:00 [facility] HPV 2009-11-17 Completed [facility] 00:00:00 [facility] Meningococcal 2009-11-17 Completed [facility] Vaccine 00:00:00 [facility] TDAP 2009-11-17 Completed [facility] 00:00:00 [facility] HPV 2009-11-17 Completed [facility] 00:00:00 [facility] Meningococcal 2009-11-17 Completed [facility] Vaccine 00:00:00 [facility] TDAP 2009-11-17 Completed [facility] 00:00:00 [facility] HPV 2009-11-17 Completed [facility] 00:00:00 [facility] Meningococcal 2009-11-17 Completed [facility] Vaccine 00:00:00 [facility] TDAP 2009-11-17 Completed [facility] 00:00:00 [facility] HPV 2009-11-17 Completed [facility] 00:00:00 [facility] Meningococcal 2009-11-17 Completed [facility] Vaccine 00:00:00 [facility] TDAP 2009-11-17 Completed [facility] 00:00:00 [facility] HPV 2009-11-17 Completed [facility] 00:00:00 [facility] Meningococcal 2009-11-17 Completed [facility] Vaccine 00:00:00 [facility] TDAP 2009-11-17 Completed [facility] 00:00:00 [facility] HPV 2009-11-17 Completed [facility] 00:00:00 [facility] Meningococcal 2009-11-17 Completed [facility] Vaccine 00:00:00 [facility] TDAP 2009-11-17 Completed [facility] 00[facility]00:00 [facility] HPV 2009-11-17 Completed [facility] 00:00:00 [facility] Meningococcal 2009-11-17 Completed [facility] Vaccine 00:00:00 [facility] TDAP 2009-11-17 Completed [facility] 00:00:00 [facility] DTAP 2002-04-05 Completed [facility] 00:00:00 [facility] MMR 2002-04-05 Completed [facility] 00:00:00 [facility] Polio (IPV/OPV) 2002-04-05 Completed [facility] 00:00:00 [facility] DTAP 2002-04-05 Completed [facility] 00:00:00 [facility] MMR 2002-04-05 Completed [facility] 00:00:00 [facility] Polio (IPV/OPV) 2002-04-05 Completed [facility] 00:00:00 [facility] DTAP 2002-04-05 Completed [facility] 00:00:00 [facility] MMR 2002-04-05 Completed [facility] 00:00:00 [facility] Polio (IPV/OPV) 2002-04-05 Completed [facility] 00:00:00 [facility] DTAP 2002-04-05 Completed [facility] 00:00:00 [facility] MMR 2002-04-05 Completed [facility] 00:00:00 [facility] Polio (IPV/OPV) 2002-04-05 Completed [facility] 00:00:00 [facility] DTAP 2002-04-05 Completed [facility] 00:00:00 [facility] MMR 2002-04-05 Completed [facility] 00:00:00 [facility] Polio (IPV/OPV) 2002-04-05 Completed [facility] 00:00:00 [facility] DTAP 2002-04-05 Completed [facility] 00:00:00 [facility] MMR 2002-04-05 Completed [facility] 00:00:00 [facility] Polio (IPV/OPV) 2002-04-05 Completed [facility] 00:00:00 [facility] DTAP 2002-04-05 Completed [facility] 00:00:00 [facility] MMR 2002-04-05 Completed [facility] 00:00:00 [facility] Polio (IPV/OPV) 2002-04-05 Completed [facility] 00:00:00 [facility] DTAP 2002-04-05 Completed [facility] 00:00:00 [facility] MMR 2002-04-05 Completed [facility] 00:00:00 [facility] Polio (IPV/OPV) 2002-04-05 Completed [facility] 00:00:00 [facility] DTAP 2002-04-05 Completed [facility] 00:00:00 [facility] MMR 2002-04-05 Completed [facility] 00:00:00 [facility] Polio (IPV/OPV) 2002-04-05 Completed [facility] 00:00:00 [facility] DTAP 2002-04-05 Completed [facility] 00:00:00 [facility] MMR 2002-04-05 Completed [facility] 00:00:00 [facility] Polio (IPV/OPV) 2002-04-05 Completed [facility] 00:00:00 [facility] DTAP 2002-04-05 Completed [facility] 00:00:00 [facility] [facility] MMR 2002-04-05 Completed [facility] 00[facility]00:00 [facility] Polio (IPV/OPV) 2002-04-05 Completed [facility] 00:00:00 [facility] DTAP 2002-04-05 Completed [facility] 00:00:00 [facility] MMR 2002-04-05 Completed [facility] 00:00:00 [facility] Polio (IPV/OPV) 2002-04-05 Completed [facility] 00:00:00 [facility] DTAP 2002-04-05 Completed [facility] 00:00:00 [facility] MMR 2002-04-05 Completed [facility] 00:00:00 [facility] Polio (IPV/OPV) 2002-04-05 Completed [facility] 00:00:00 [facility] DTAP 2002-04-05 Completed [facility] 00:00:00 [facility] MMR 2002-04-05 Completed [facility] 00:00:00 [facility] Polio (IPV/OPV) 2002-04-05 Completed [facility] 00:00:00 [facility] DTAP 2002-04-05 Completed [facility] 00:00:00 [facility] MMR 2002-04-05 Completed [facility] 00:00:00 [facility] Polio (IPV/OPV) 2002-04-05 Completed [facility] 00:00:00 [facility] DTAP 2002-04-05 Completed [facility] 00:00:00 [facility] MMR 2002-04-05 Completed [facility] 00:00:00 [facility] Polio (IPV/OPV) 2002-04-05 Completed [facility] 00:00:00 [facility] DTAP 2002-04-05 Completed [facility] 00:00:00 [facility] MMR 2002-04-05 Completed [facility] 00:00:00 [facility] Polio (IPV/OPV) 2002-04-05 Completed [facility] 00:00:00 [facility] DTAP 2002-04-05 Completed [facility] 00:00:00 [facility] MMR 2002-04-05 Completed [facility] 00:00:00 [facility] Polio (IPV/OPV) 2002-04-05 Completed [facility] 00:00:00 [facility] DTAP 2002-04-05 Completed [facility] 00:00:00 [facility] MMR 2002-04-05 Completed [facility] 00:00:00 [facility] Polio (IPV/OPV) 2002-04-05 Completed [facility] 00:00:00 [facility] DTAP 2002-04-05 Completed [facility] 00:00:00 [facility] MMR 2002-04-05 Completed [facility] 00:00:00 [facility] Polio (IPV/OPV) 2002-04-05 Completed [facility] 00:00:00 [facility] DTAP 2002-04-05 Completed [facility] 00[facility]00:00 [facility] MMR 2002-04-05 Completed [facility] 00:00:00 [facility] Polio (IPV/OPV) 2002-04-05 Completed [facility] 00:00:00 [facility] DTAP 2002-04-05 Completed [facility] 00:00:00 [facility] MMR 2002-04-05 Completed [facility] 00:00:00 [facility] Polio (IPV/OPV) 2002-04-05 Completed [facility] 00:00:00 [facility] DTAP 2002-04-05 Completed [facility] 00:00:00 [facility] MMR 2002-04-05 Completed [facility] 00:00:00 [facility] Polio (IPV/OPV) 2002-04-05 Completed [facility] 00:00:00 [facility] DTAP 2002-04-05 Completed [facility] 00[facility]00:00 [facility] MMR 2002-04-05 Completed [facility] 00:00:00 [facility] Polio (IPV/OPV) 2002-04-05 Completed [facility] 00:00:00 [facility] DTAP 2002-04-05 Completed [facility] 00:00:00 [facility] MMR 2002-04-05 Completed [facility] 00:00:00 [facility] Polio (IPV/OPV) 2002-04-05 Completed [facility] 00:00:00 [facility] DTAP 2002-04-05 Completed [facility] 00:00:00 [facility] MMR 2002-04-05 Completed [facility] 00:00:00 [facility] Polio (IPV/OPV) 2002-04-05 Completed [facility] 00:00:00 [facility] DTAP 2002-04-05 Completed [facility] 00:00:00 [facility] MMR 2002-04-05 Completed [facility] 00:00:00 [facility] Polio (IPV/OPV) 2002-04-05 Completed [facility] 00:00:00 [facility] DTAP 2002-04-05 Completed [facility] 00:00:00 [facility] MMR 2002-04-05 Completed [facility] 00:00:00 [facility] Polio (IPV/OPV) 2002-04-05 Completed [facility] 00:00:00 [facility] DTAP 2002-04-05 Completed [facility] 00:00:00 [facility] MMR 2002-04-05 Completed [facility] 00:00:00 [facility] Polio (IPV/OPV) 2002-04-05 Completed [facility] 00:00:00 [facility] DTAP 2002-04-05 Completed [facility] 00:00:00 [facility] MMR 2002-04-05 Completed [facility] 00:00:00 [facility] Polio (IPV/OPV) 2002-04-05 Completed [facility] 00:00:00 [facility] DTAP 2002-04-05 Completed [facility] 00:00:00 [facility] MMR 2002-04-05 Completed [facility] 00:00:00 [facility] Polio (IPV/OPV) 2002-04-05 Completed [facility] 00:00:00 [facility] DTAP 2002-04-05 Completed [facility] 00:00:00 [facility] MMR 2002-04-05 Completed [facility] 00:00:00 [facility] Polio (IPV/OPV) 2002-04-05 Completed [facility] 00:00:00 [facility] DTAP 2002-04-05 Completed [facility] 00:00:00 [facility] MMR 2002-04-05 Completed [facility] 00:00:00 [facility] Polio (IPV/OPV) 2002-04-05 Completed [facility] 00:00:00 [facility] DTAP 2002-04-05 Completed [facility] 00:00:00 [facility] MMR 2002-04-05 Completed [facility] 00:00:00 [facility] Polio (IPV/OPV) 2002-04-05 Completed [facility] 00:00:00 [facility] DTAP 2002-04-05 Completed [facility] 00:00:00 [facility] MMR 2002-04-05 Completed [facility] 00:00:00 [facility] Polio (IPV/OPV) 2002-04-05 Completed [facility] 00:00:00 [facility] DTAP 2002-04-05 Completed [facility] 00:00:00 [facility] MMR 2002-04-05 Completed [facility] 00:00:00 [facility] Polio (IPV/OPV) 2002-04-05 Completed [facility] 00:00:00 [facility] DTAP 2002-04-05 Completed [facility] 00:00:00 [facility] MMR 2002-04-05 Completed [facility] 00:00:00 [facility] Polio (IPV/OPV) 2002-04-05 Completed [facility] 00:00:00 [facility] DTAP 2002-04-05 Completed [facility] 00:00:00 [facility] MMR 2002-04-05 Completed [facility] 00:00:00 [facility] Polio (IPV/OPV) 2002-04-05 Completed [facility] 00:00:00 [facility] DTAP 2002-04-05 Completed [facility] 00:00:00 [facility] MMR 2002-04-05 Completed [facility] 00:00:00 [facility] Polio (IPV/OPV) 2002-04-05 Completed [facility] 00:00:00 [facility] DTAP 2002-04-05 Completed [facility] 00:00:00 [facility] MMR 2002-04-05 Completed [facility] 00:00:00 [facility] Polio (IPV/OPV) 2002-04-05 Completed [facility] 00:00:00 [facility] DTAP 2002-04-05 Completed [facility] 00:00:00 [facility] MMR 2002-04-05 Completed [facility] 00:00:00 [facility] Polio (IPV/OPV) 2002-04-05 Completed [facility] 00:00:00 [facility] DTAP 2002-04-05 Completed [facility] 00:00:00 [facility] MMR 2002-04-05 Completed [facility] 00:00:00 [facility] Polio (IPV/OPV) 2002-04-05 Completed [facility] 00:00:00 [facility] DTAP 2002-04-05 Completed [facility] 00:00:00 [facility] MMR 2002-04-05 Completed [facility] 00:00:00 [facility] Polio (IPV/OPV) 2002-04-05 Completed [facility] 00:00:00 [facility] DTAP 2002-04-05 Completed [facility] 00:00:00 [facility] MMR 2002-04-05 Completed [facility] 00:00:00 [facility] Polio (IPV/OPV) 2002-04-05 Completed [facility] 00:00:00 [facility] DTAP 2002-04-05 Completed [facility] 00:00:00 [facility] MMR 2002-04-05 Completed [facility] 00:00:00 [facility] Polio (IPV/OPV) 2002-04-05 Completed [facility] 00:00:00 [facility] DTAP 2002-04-05 Completed [facility] 00:00:00 [facility] MMR 2002-04-05 Completed [facility] 00:00:00 [facility] Polio (IPV/OPV) 2002-04-05 Completed [facility] 00:00:00 [facility] DTAP 2002-04-05 Completed [facility] 00:00:00 [facility] MMR 2002-04-05 Completed [facility] 00:00:00 [facility] Polio (IPV/OPV) 2002-04-05 Completed [facility] 00:00:00 [facility] DTAP 2002-04-05 Completed [facility] 00:00:00 [facility] MMR 2002-04-05 Completed [facility] 00:00:00 [facility] Polio (IPV/OPV) 2002-04-05 Completed [facility] 00:00:00 [facility] DTAP 2002-04-05 Completed [facility] 00:00:00 [facility] MMR 2002-04-05 Completed [facility] 00:00:00 [facility] Polio (IPV/OPV) 2002-04-05 Completed [facility] 00:00:00 [facility] DTAP 2002-04-05 Completed [facility] 00:00:00 [facility] MMR 2002-04-05 Completed [facility] 00:00:00 [facility] Polio (IPV/OPV) 2002-04-05 Completed [facility] 00:00:00 [facility] DTAP 2002-04-05 Completed [facility] 00:00:00 [facility] MMR 2002-04-05 Completed [facility] 00:00:00 [facility] Polio (IPV/OPV) 2002-04-05 Completed [facility] 00:00:00 [facility] DTAP 2002-04-05 Completed [facility] 00:00:00 [facility] MMR 2002-04-05 Completed [facility] 00:00:00 [facility] Polio (IPV/OPV) 2002-04-05 Completed [facility] 00:00:00 [facility] DTAP 2002-04-05 Completed [facility] 00:00:00 [facility] MMR 2002-04-05 Completed [facility] 00:00:00 [facility] Polio (IPV/OPV) 2002-04-05 Completed [facility] 00:00:00 [facility] DTAP 2002-04-05 Completed [facility] 00:00:00 [facility] MMR 2002-04-05 Completed [facility] 00:00:00 [facility] Polio (IPV/OPV) 2002-04-05 Completed [facility] 00:00:00 [facility] DTAP 2002-04-05 Completed [facility] 00:00:00 [facility] MMR 2002-04-05 Completed [facility] 00:00:00 [facility] Polio (IPV/OPV) 2002-04-05 Completed [facility] 00:00:00 [facility] DTAP 2002-04-05 Completed [facility] 00:00:00 [facility] MMR 2002-04-05 Completed [facility] 00:00:00 [facility] Polio (IPV/OPV) 2002-04-05 Completed [facility] 00:00:00 [facility] DTAP 2002-04-05 Completed [facility] 00:00:00 [facility] MMR 2002-04-05 Completed [facility] 00:00:00 [facility] Polio (IPV/OPV) 2002-04-05 Completed [facility] 00:00:00 [facility] DTAP 2002-04-05 Completed [facility] 00:00:00 [facility] MMR 2002-04-05 Completed [facility] 00:00:00 [facility] Polio (IPV/OPV) 2002-04-05 Completed [facility] 00:00:00 [facility] DTAP 2002-04-05 Completed [facility] 00:00:00 [facility] MMR 2002-04-05 Completed [facility] 00:00:00 [facility] Polio (IPV/OPV) 2002-04-05 Completed [facility] 00:00:00 [facility] DTAP 2002-04-05 Completed [facility] 00:00:00 [facility] MMR 2002-04-05 Completed [facility] 00:00:00 [facility] Polio (IPV/OPV) 2002-04-05 Completed [facility] 00:00:00 [facility] DTAP 2002-04-05 Completed [facility] 00:00:00 [facility] MMR 2002-04-05 Completed [facility] 00:00:00 [facility] Polio (IPV/OPV) 2002-04-05 Completed [facility] 00:00:00 [facility] DTAP 2002-04-05 Completed [facility] 00:00:00 [facility] MMR 2002-04-05 Completed [facility] 00:00:00 [facility] Polio (IPV/OPV) 2002-04-05 Completed [facility] 00:00:00 [facility] DTAP 2002-04-05 Completed [facility] 00:00:00 [facility] MMR 2002-04-05 Completed [facility] 00:00:00 [facility] Polio (IPV/OPV) 2002-04-05 Completed [facility] 00:00:00 [facility] DTAP 2002-04-05 Completed [facility] 00:00:00 [facility] MMR 2002-04-05 Completed [facility] 00:00:00 [facility] Polio (IPV/OPV) 2002-04-05 Completed [facility] 00:00:00 [facility] DTAP 2002-04-05 Completed [facility] 00:00:00 [facility] MMR 2002-04-05 Completed [facility] 00:00:00 [facility] Polio (IPV/OPV) 2002-04-05 Completed [facility] 00:00:00 [facility] DTAP 2002-04-05 Completed [facility] 00:00:00 [facility] MMR 2002-04-05 Completed [facility] 00:00:00 [facility] Polio (IPV/OPV) 2002-04-05 Completed [facility] 00:00:00 [facility] DTAP 2002-04-05 Completed [facility] 00:00:00 [facility] MMR 2002-04-05 Completed [facility] 00:00:00 [facility] Polio (IPV/OPV) 2002-04-05 Completed [facility] 00:00:00 [facility] DTAP 2001-11-28 Completed [facility] 00:00:00 [facility] MMR 2001-11-28 Completed [facility] 00:00:00 [facility] Polio (IPV/OPV) 2001-11-28 Completed [facility] 00:00:00 [facility] Varicella 2001-11-28 Completed [facility] (varivax)(chicken 00:00:00 [place] [facility] DTAP 2001-11-28 Completed [facility] 00:00:00 [facility] MMR 2001-11-28 Completed [facility] 00:00:00 [facility] Polio (IPV/OPV) 2001-11-28 Completed [facility] 00:00:00 [facility] Varicella 2001-11-28 Completed [facility] (varivax)(chicken 00:00:00 [place] [facility] DTAP 2001-11-28 Completed [facility] 00:00:00 [facility] MMR 2001-11-28 Completed [facility] 00:00:00 [facility] Polio (IPV/OPV) 2001-11-28 Completed [facility] 00:00:00 [facility] Varicella 2001-11-28 Completed [facility] (varivax)(chicken 00:00:00 [place] [facility] DTAP 2001-11-28 Completed [facility] 00:00:00 [facility] MMR 2001-11-28 Completed [facility] 00:00:00 [facility] Polio (IPV/OPV) 2001-11-28 Completed [facility] 00:00:00 [facility] Varicella 2001-11-28 Completed [facility] (varivax)(chicken 00:00:00 [place] [facility] DTAP 2001-11-28 Completed [facility] 00:00:00 [facility] MMR 2001-11-28 Completed [facility] 00:00:00 [facility] Polio (IPV/OPV) 2001-11-28 Completed [facility] 00:00:00 [facility] Varicella 2001-11-28 Completed [facility] (varivax)(chicken 00:00:00 [place] [facility] DTAP 2001-11-28 Completed [facility] 00:00:00 [facility] MMR 2001-11-28 Completed [facility] 00:00:00 [facility] Polio (IPV/OPV) 2001-11-28 Completed [facility] 00:00:00 [facility] Varicella 2001-11-28 Completed [facility] (varivax)(chicken 00:00:00 [place] [facility] DTAP 2001-11-28 Completed [facility] 00:00:00 [facility] MMR 2001-11-28 Completed [facility] 00:00:00 [facility] Polio (IPV/OPV) 2001-11-28 Completed [facility] 00:00:00 [facility] Varicella 2001-11-28 Completed [facility] (varivax)(chicken 00:00:00 [place] [facility] DTAP 2001-11-28 Completed [facility] 00:00:00 [facility] MMR 2001-11-28 Completed [facility] 00:00:00 [facility] Polio (IPV/OPV) 2001-11-28 Completed [facility] 00:00:00 [facility] Varicella 2001-11-28 Completed [facility] (varivax)(chicken 00:00:00 [place] [facility] DTAP 2001-11-28 Completed [facility] 00:00:00 [facility] MMR 2001-11-28 Completed [facility] 00:00:00 [facility] Polio (IPV/OPV) 2001-11-28 Completed [facility] 00:00:00 [facility] Varicella 2001-11-28 Completed [facility] (varivax)(chicken 00:00:00 [place] [facility] DTAP 2001-11-28 Completed [facility] 00:00:00 [facility] MMR 2001-11-28 Completed [facility] 00:00:00 [facility] Polio (IPV/OPV) 2001-11-28 Completed [facility] 00:00:00 [facility] Varicella 2001-11-28 Completed [facility] (varivax)(chicken 00:00:00 [place] [facility] DTAP 2001-11-28 Completed [facility] 00:00:00 [facility] MMR 2001-11-28 Completed [facility] 00:00:00 [facility] Polio (IPV/OPV) 2001-11-28 Completed [facility] 00:00:00 [facility] Varicella 2001-11-28 Completed [facility] (varivax)(chicken 00:00:00 [place] [facility] DTAP 2001-11-28 Completed [facility] 00:00:00 [facility] MMR 2001-11-28 Completed [facility] 00:00:00 [facility] Polio (IPV/OPV) 2001-11-28 Completed [facility] 00:00:00 [facility] Varicella 2001-11-28 Completed [facility] (varivax)(chicken 00:00:00 [place] [facility] DTAP 2001-11-28 Completed [facility] 00:00:00 [facility] MMR 2001-11-28 Completed [facility] 00:00:00 [facility] Polio (IPV/OPV) 2001-11-28 Completed [facility] 00:00:00 [facility] Varicella 2001-11-28 Completed [facility] (varivax)(chicken 00:00:00 [place] [facility] DTAP 2001-11-28 Completed [facility] 00:00:00 [facility] MMR 2001-11-28 Completed [facility] 00:00:00 [facility] Polio (IPV/OPV) 2001-11-28 Completed [facility] 00:00:00 [facility] Varicella 2001-11-28 Completed [facility] (varivax)(chicken 00:00:00 [place] [facility] DTAP 2001-11-28 Completed [facility] 00:00:00 [facility] MMR 2001-11-28 Completed [facility] 00:00:00 [facility] Polio (IPV/OPV) 2001-11-28 Completed [facility] 00:00:00 [facility] Varicella 2001-11-28 Completed [facility] (varivax)(chicken 00:00:00 [place] [facility] DTAP 2001-11-28 Completed [facility] 00:00:00 [facility] MMR 2001-11-28 Completed [facility] 00:00:00 [facility] Polio (IPV/OPV) 2001-11-28 Completed [facility] 00:00:00 [facility] Varicella 2001-11-28 Completed [facility] (varivax)(chicken 00:00:00 [place] [facility] DTAP 2001-11-28 Completed [facility] 00:00:00 [facility] MMR 2001-11-28 Completed [facility] 00:00:00 [facility] Polio (IPV/OPV) 2001-11-28 Completed [facility] 00:00:00 [facility] Varicella 2001-11-28 Completed [facility] (varivax)(chicken 00:00:00 [place] [facility] DTAP 2001-11-28 Completed [facility] 00:00:00 [facility] MMR 2001-11-28 Completed [facility] 00:00:00 [facility] Polio (IPV/OPV) 2001-11-28 Completed [facility] 00:00:00 [facility] Varicella 2001-11-28 Completed [facility] (varivax)(chicken 00:00:00 [place] [facility] DTAP 2001-11-28 Completed [facility] 00:00:00 [facility] MMR 2001-11-28 Completed [facility] 00:00:00 [facility] Polio (IPV/OPV) 2001-11-28 Completed [facility] 00:00:00 [facility] Varicella 2001-11-28 Completed [facility] (varivax)(chicken 00:00:00 [place] [facility] DTAP 2001-11-28 Completed [facility] 00:00:00 [facility] MMR 2001-11-28 Completed [facility] 00:00:00 [facility] Polio (IPV/OPV) 2001-11-28 Completed [facility] 00:00:00 [facility] Varicella 2001-11-28 Completed [facility] (varivax)(chicken 00:00:00 [place] [facility] DTAP 2001-11-28 Completed [facility] 00:00:00 [facility] MMR 2001-11-28 Completed [facility] 00:00:00 [facility] Polio (IPV/OPV) 2001-11-28 Completed [facility] 00:00:00 [facility] Varicella 2001-11-28 Completed [facility] (varivax)(chicken 00:00:00 [facility] edical pox) Branch DTAP 2001-11-28 Completed [facility] 00:00:00 [facility] MMR 2001-11-28 Completed [facility] 00:00:00 [facility] Polio (IPV/OPV) 2001-11-28 Completed [facility] 00:00:00 [facility] Varicella 2001-11-28 Completed [facility] (varivax)(chicken 00:00:00 [place] [facility] DTAP 2001-11-28 Completed [facility] 00:00:00 [facility] MMR 2001-11-28 Completed [facility] 00:00:00 [facility] Polio (IPV/OPV) 2001-11-28 Completed [facility] 00:00:00 [facility] Varicella 2001-11-28 Completed [facility] (varivax)(chicken 00:00:00 [place] [facility] DTAP 2001-11-28 Completed [facility] 00:00:00 [facility] MMR 2001-11-28 Completed [facility] 00:00:00 [facility] Polio (IPV/OPV) 2001-11-28 Completed [facility] 00:00:00 [facility] Varicella 2001-11-28 Completed [facility] (varivax)(chicken 00:00:00 [place] [facility] DTAP 2001-11-28 Completed [facility] 00:00:00 [facility] MMR 2001-11-28 Completed [facility] 00:00:00 [facility] Polio (IPV/OPV) 2001-11-28 Completed [facility] 00:00:00 [facility] Varicella 2001-11-28 Completed [facility] (varivax)(chicken 00:00:00 [place] [facility] DTAP 2001-11-28 Completed [facility] 00:00:00 [facility] MMR 2001-11-28 Completed [facility] 00:00:00 [facility] Polio (IPV/OPV) 2001-11-28 Completed [facility] 00:00:00 [facility] Varicella 2001-11-28 Completed [facility] (varivax)(chicken 00:00:00 [place] [facility] DTAP 2001-11-28 Completed [facility] 00:00:00 [facility] MMR 2001-11-28 Completed [facility] 00:00:00 [facility] Polio (IPV/OPV) 2001-11-28 Completed [facility] 00:00:00 [facility] Varicella 2001-11-28 Completed [facility] (varivax)(chicken 00:00:00 [place] [facility] DTAP 2001-11-28 Completed [facility] 00:00:00 [facility] MMR 2001-11-28 Completed [facility] 00:00:00 [facility] Polio (IPV/OPV) 2001-11-28 Completed [facility] 00:00:00 [facility] Varicella 2001-11-28 Completed [facility] (varivax)(chicken 00:00:00 [place] [facility] DTAP 2001-11-28 Completed [facility] 00:00:00 [facility] MMR 2001-11-28 Completed [facility] 00:00:00 [facility] Polio (IPV/OPV) 2001-11-28 Completed [facility] 00:00:00 [facility] Varicella 2001-11-28 Completed [facility] (varivax)(chicken 00:00:00 [place] [facility] DTAP 2001-11-28 Completed [facility] 00:00:00 [facility] MMR 2001-11-28 Completed [facility] 00:00:00 [facility] Polio (IPV/OPV) 2001-11-28 Completed [facility] 00:00:00 [facility] Varicella 2001-11-28 Completed [facility] (varivax)(chicken 00:00:00 [place] [facility] DTAP 2001-11-28 Completed [facility] 00:00:00 [facility] MMR 2001-11-28 Completed [facility] 00:00:00 [facility] Polio (IPV/OPV) 2001-11-28 Completed [facility] 00:00:00 [facility] Varicella 2001-11-28 Completed [facility] (varivax)(chicken 00:00:00 [place] [facility] DTAP 2001-11-28 Completed [facility] 00:00:00 [facility] MMR 2001-11-28 Completed [facility] 00:00:00 [facility] Polio (IPV/OPV) 2001-11-28 Completed [facility] 00:00:00 [facility] Varicella 2001-11-28 Completed [facility] (varivax)(chicken 00:00:00 [place] [facility] DTAP 2001-11-28 Completed [facility] 00:00:00 [facility] MMR 2001-11-28 Completed [facility] 00:00:00 [facility] Polio (IPV/OPV) 2001-11-28 Completed [facility] 00:00:00 [facility] Varicella 2001-11-28 Completed [facility] (varivax)(chicken 00:00:00 [place] [facility] DTAP 2001-11-28 Completed [facility] 00:00:00 [facility] MMR 2001-11-28 Completed [facility] 00:00:00 [facility] Polio (IPV/OPV) 2001-11-28 Completed [facility] 00:00:00 [facility] Varicella 2001-11-28 Completed [facility] (varivax)(chicken 00:00:00 [place] [facility] DTAP 2001-11-28 Completed [facility] 00:00:00 [facility] MMR 2001-11-28 Completed [facility] 00:00:00 [facility] Polio (IPV/OPV) 2001-11-28 Completed [facility] 00:00:00 [facility] Varicella 2001-11-28 Completed [facility] (varivax)(chicken 00:00:00 [place] [facility] DTAP 2001-11-28 Completed [facility] 00:00:00 [facility] MMR 2001-11-28 Completed [facility] 00:00:00 [facility] Polio (IPV/OPV) 2001-11-28 Completed [facility] 00:00:00 [facility] Varicella 2001-11-28 Completed [facility] (varivax)(chicken 00:00:00 [place] [facility] DTAP 2001-11-28 Completed [facility] 00:00:00 [facility] MMR 2001-11-28 Completed [facility] 00:00:00 [facility] Polio (IPV/OPV) 2001-11-28 Completed [facility] 00:00:00 [facility] Varicella 2001-11-28 Completed [facility] (varivax)(chicken 00:00:00 [place] [facility] DTAP 2001-11-28 Completed [facility] 00:00:00 [facility] MMR 2001-11-28 Completed [facility] 00:00:00 [facility] Polio (IPV/OPV) 2001-11-28 Completed [facility] 00:00:00 [facility] Varicella 2001-11-28 Completed [facility] (varivax)(chicken 00:00:00 [place] [facility] DTAP 2001-11-28 Completed [facility] 00:00:00 [facility] MMR 2001-11-28 Completed [facility] 00:00:00 [facility] Polio (IPV/OPV) 2001-11-28 Completed [facility] 00:00:00 [facility] Varicella 2001-11-28 Completed [facility] (varivax)(chicken 00:00:00 [place] [facility] DTAP 2001-11-28 Completed [facility] 00:00:00 [facility] MMR 2001-11-28 Completed [facility] 00:00:00 [facility] Polio (IPV/OPV) 2001-11-28 Completed [facility] 00:00:00 [facility] Varicella 2001-11-28 Completed [facility] (varivax)(chicken 00:00:00 [place] [facility] DTAP 2001-11-28 Completed [facility] 00:00:00 [facility] MMR 2001-11-28 Completed [facility] 00:00:00 [facility] Polio (IPV/OPV) 2001-11-28 Completed [facility] 00:00:00 [facility] Varicella 2001-11-28 Completed [facility] (varivax)(chicken 00:00:00 [place] [facility] DTAP 2001-11-28 Completed [facility] 00:00:00 [facility] MMR 2001-11-28 Completed [facility] 00:00:00 [facility] Polio (IPV/OPV) 2001-11-28 Completed [facility] 00:00:00 [facility] Varicella 2001-11-28 Completed [facility] (varivax)(chicken 00:00:00 [place] [facility] DTAP 2001-11-28 Completed [facility] 00:00:00 [facility] MMR 2001-11-28 Completed [facility] 00:00:00 [facility] Polio (IPV/OPV) 2001-11-28 Completed [facility] 00:00:00 [facility] Varicella 2001-11-28 Completed [facility] (varivax)(chicken 00:00:00 [place] [facility] DTAP 2001-11-28 Completed [facility] 00:00:00 [facility] MMR 2001-11-28 Completed [facility] 00:00:00 [facility] Polio (IPV/OPV) 2001-11-28 Completed [facility] 00:00:00 [facility] Varicella 2001-11-28 Completed [facility] (varivax)(chicken 00:00:00 [place] [facility] DTAP 2001-11-28 Completed [facility] 00:00:00 [facility] MMR 2001-11-28 Completed [facility] 00:00:00 [facility] Polio (IPV/OPV) 2001-11-28 Completed [facility] 00:00:00 [facility] Varicella 2001-11-28 Completed [facility] (varivax)(chicken 00:00:00 [place] [facility] DTAP 2001-11-28 Completed [facility] 00:00:00 [facility] MMR 2001-11-28 Completed [facility] 00:00:00 [facility] Polio (IPV/OPV) 2001-11-28 Completed [facility] 00:00:00 [facility] Varicella 2001-11-28 Completed [facility] (varivax)(chicken 00:00:00 [place] [facility] DTAP 2001-11-28 Completed [facility] 00:00:00 [facility] MMR 2001-11-28 Completed [facility] 00:00:00 [facility] Polio (IPV/OPV) 2001-11-28 Completed [facility] 00:00:00 [facility] Varicella 2001-11-28 Completed [facility] (varivax)(chicken 00:00:00 [place] [facility] DTAP 2001-11-28 Completed [facility] 00:00:00 [facility] MMR 2001-11-28 Completed [facility] 00:00:00 [facility] Polio (IPV/OPV) 2001-11-28 Completed [facility] 00:00:00 [facility] Varicella 2001-11-28 Completed [facility] (varivax)(chicken 00:00:00 [place] [facility] DTAP 2001-11-28 Completed [facility] 00:00:00 [facility] MMR 2001-11-28 Completed [facility] 00:00:00 [facility] Polio (IPV/OPV) 2001-11-28 Completed [facility] 00:00:00 [facility] Varicella 2001-11-28 Completed [facility] (varivax)(chicken 00:00:00 [place] [facility] DTAP 2001-11-28 Completed [facility] 00:00:00 [facility] MMR 2001-11-28 Completed [facility] 00:00:00 [facility] Polio (IPV/OPV) 2001-11-28 Completed [facility] 00:00:00 [facility] Varicella 2001-11-28 Completed [facility] (varivax)(chicken 00:00:00 [place] [facility] DTAP 2001-11-28 Completed [facility] 00:00:00 [facility] MMR 2001-11-28 Completed [facility] 00:00:00 [facility] Polio (IPV/OPV) 2001-11-28 Completed [facility] 00:00:00 [facility] Varicella 2001-11-28 Completed [facility] (varivax)(chicken 00:00:00 [place] [facility] DTAP 2001-11-28 Completed [facility] 00:00:00 [facility] MMR 2001-11-28 Completed [facility] 00:00:00 [facility] Polio (IPV/OPV) 2001-11-28 Completed [facility] 00:00:00 [facility] Varicella 2001-11-28 Completed [facility] (varivax)(chicken 00:00:00 [place] [facility] DTAP 2001-11-28 Completed [facility] 00:00:00 [facility] MMR 2001-11-28 Completed [facility] 00:00:00 [facility] Polio (IPV/OPV) 2001-11-28 Completed [facility] 00:00:00 [facility] Varicella 2001-11-28 Completed [facility] (varivax)(chicken 00:00:00 [place] [facility] DTAP 2001-11-28 Completed [facility] 00:00:00 [facility] MMR 2001-11-28 Completed [facility] 00:00:00 [facility] Polio (IPV/OPV) 2001-11-28 Completed [facility] 00:00:00 [facility] Varicella 2001-11-28 Completed [facility] (varivax)(chicken 00:00:00 [place] [facility] DTAP 2001-11-28 Completed [facility] 00:00:00 [facility] MMR 2001-11-28 Completed [facility] 00:00:00 [facility] Polio (IPV/OPV) 2001-11-28 Completed [facility] 00:00:00 [facility] Varicella 2001-11-28 Completed [facility] (varivax)(chicken 00:00:00 [place] [facility] DTAP 2001-11-28 Completed [facility] 00:00:00 [facility] MMR 2001-11-28 Completed [facility] 00:00:00 [facility] Polio (IPV/OPV) 2001-11-28 Completed [facility] 00:00:00 [facility] Varicella 2001-11-28 Completed [facility] (varivax)(chicken 00:00:00 [place] [facility] DTAP 2001-11-28 Completed [facility] 00:00:00 [facility] MMR 2001-11-28 Completed [facility] 00:00:00 [facility] Polio (IPV/OPV) 2001-11-28 Completed [facility] 00:00:00 [facility] Varicella 2001-11-28 Completed [facility] (varivax)(chicken 00:00:00 [place] [facility]ox[facility] DTAP 2001-11-28 Completed [facility] 00:00:00 [facility] MMR 2001-11-28 Completed [facility] 00:00:00 [facility] Polio (IPV/OPV) 2001-11-28 Completed [facility] 00:00:00 [facility] Varicella 2001-11-28 Completed [facility] (varivax)(chicken 00:00:00 [place] [facility] pox[facility] DTAP 2001-11-28 Completed [facility] 00:00:00 [facility] MMR 2001-11-28 Completed [facility] 00:00:00 [facility] Polio (IPV/OPV) 2001-11-28 Completed [facility] 00:00:00 [facility] Varicella 2001-11-28 Completed [facility] (varivax)(chicken 00:00:00 [place] [facility]ox[facility] DTAP 2001-11-28 Completed [facility] 00:00:00 [facility] MMR 2001-11-28 Completed [facility] 00:00:00 [facility] Polio (IPV/OPV) 2001-11-28 Completed [facility] 00:00:00 [facility] Varicella 2001-11-28 Completed [facility] (varivax)(chicken 00:00:00 [place] [facility] pox[facility] DTAP 2001-11-28 Completed [facility] 00:00:00 [facility] MMR 2001-11-28 Completed [facility] 00:00:00 [facility] Polio (IPV/OPV) 2001-11-28 Completed [facility] 00:00:00 [facility] Varicella 2001-11-28 Completed [facility] (varivax)(chicken 00:00:00 [place] [facility] DTAP 2001-11-28 Completed [facility] 00:00:00 [facility] MMR 2001-11-28 Completed [facility] 00:00:00 [facility] Polio (IPV/OPV) 2001-11-28 Completed [facility] 00:00:00 [facility] Varicella 2001-11-28 Completed [facility] (varivax)(chicken 00:00:00 [place] [facility] pox[facility] DTAP 2001-11-28 Completed [facility] 00:00:00 [facility] MMR 2001-11-28 Completed [facility] 00:00:00 [facility] Polio (IPV/OPV) 2001-11-28 Completed [facility] 00:00:00 [facility] Varicella 2001-11-28 Completed [facility] (varivax)(chicken 00:00:00 [place] [facility] pox) [facility] DTAP 2001-11-28 Completed [facility] 00:00:00 [facility] MMR 2001-11-28 Completed [facility] 00:00:00 [facility] Polio (IPV/OPV) 2001-11-28 Completed [facility] 00:00:00 [facility] Varicella 2001-11-28 Completed [facility] (varivax)(chicken 00:00:00 [place] [facility] DTAP 2001-11-28 Completed [facility] 00:00:00 [facility] MMR 2001-11-28 Completed [facility] 00:00:00 [facility] Polio (IPV/OPV) 2001-11-28 Completed [facility] 00:00:00 [facility] Varicella 2001-11-28 Completed [facility] (varivax)(chicken 00:00:00 [place] [facility] DTAP 2001-11-28 Completed [facility] 00:00:00 [facility] MMR 2001-11-28 Completed [facility] 00:00:00 [facility] Polio (IPV/OPV) 2001-11-28 Completed [facility] 00:00:00 [facility] Varicella 2001-11-28 Completed [facility] (varivax)(chicken 00:00:00 [place] [facility] DTAP 2001-11-28 Completed [facility] 00:00:00 [facility] MMR 2001-11-28 Completed [facility] 00:00:00 [facility] Polio (IPV/OPV) 2001-11-28 Completed [facility] 00:00:00 [facility] Varicella 2001-11-28 Completed [facility] [...] Branch DTAP 1999-11-18 Completed [facility] 00:00:00 [facility] HIB 4 Dose Schedule 1999-11-18 Completed [facility]ive rsity of 00:00:00 [facility] Hep B, Adol or Pedi 1999-11-18 Completed Unive rsity of Dosage 00:00:00 [facility] Polio (IPV/OPV) 1999-11-18 Completed [facility] 00:00:00 [facility] DTAP 1999-11-18 Completed [facility] 00:00:00 [facility] HIB 4 Dose Schedule 1999-11-18 Completed [facility] rsity of 00:00:00 [facility] Hep B, Adol or Pedi 1999-11-18 Completed [facility]ive rsity of Dosage 00:00:00 [facility] Polio (IPV/OPV) 1999-11-18 Completed [facility] 00:00:00 [facility] DTAP 1999-11-18 Completed [facility] 00:00:00 [facility] HIB 4 Dose Schedule 1999-11-18 Completed [facility]ive rsity of 00:00:00 [facility] Hep B, Adol or Pedi 1999-11-18 Completed [facility]ive rsity of Dosage 00:00:00 [facility] Polio (IPV/OPV) 1999-11-18 Completed [facility] 00:00:00 [facility] DTAP 1999-11-18 Completed [facility] 00:00:00 [facility] HIB 4 Dose Schedule 1999-11-18 Completed [facility] rs[facility] of 00:00:00 [facility] Hep B, Adol or Pedi 1999-11-18 Completed Unive rsity of Dosage 00:00:00 [facility] Polio (IPV/OPV) 1999-11-18 Completed [facility] 00:00:00 [facility] DTAP 1999-11-18 Completed [facility] 00:00:00 [facility] HIB 4 Dose Schedule 1999-11-18 Completed [facility] rsity of 00:00:00 [facility] Hep B, Adol or Pedi 1999-11-18 Completed Unive rsity of Dosage 00:00:00 [facility] Polio (IPV/OPV) 1999-11-18 Completed [facility] 00:00:00 [facility] DTAP 1999-11-18 Completed [facility] 00:00:00 [facility] HIB 4 Dose Schedule 1999-11-18 Completed [facility]ive rsity of 00:00:00 [facility] Hep B, Adol or Pedi 1999-11-18 Completed Unive rsity of Dosage 00:00:00 [facility] Polio (IPV/OPV) 1999-11-18 Completed [facility] 00:00:00 [facility] DTAP 1999-11-18 Completed [facility] 00:00:00 [facility] HIB 4 Dose Schedule 1999-11-18 Completed [facility]ive rsity of 00:00:00 [facility] Hep B, Adol or Pedi 1999-11-18 Completed [facility]ive rsity of Dosage 00:00:00 [facility] Polio (IPV/OPV) 1999-11-18 Completed [facility] 00:00:00 [facility] DTAP 1999-11-18 Completed [facility] 00:00:00 [facility] HIB 4 Dose Schedule 1999-11-18 Completed [facility] 00:00:00 [facility] Hep B, Adol or Pedi 1999-11-18 Completed [facility]ive rs[facility] of Dosage 00:00:00 [facility] Polio (IPV/OPV) 1999-11-18 Completed [facility] 00:00:00 [facility] DTAP 1999-11-18 Completed [facility] 00:00:00 [facility] HIB 4 Dose Schedule 1999-11-18 Completed [facility] rs[facility] of 00:00:00 [facility] Hep B, Adol or Pedi 1999-11-18 Completed [facility] rs[facility] of Dosage 00:00:00 [facility] Polio (IPV/OPV) 1999-11-18 Completed [facility] 00:00:00 [facility] DTAP 1999-11-18 Completed [facility] 00:00:00 [facility] HIB 4 Dose Schedule 1999-11-18 Completed [facility] rsity of 00:00:00 [facility] Hep B, Adol or Pedi 1999-11-18 Completed [facility]ive rsity of Dosage 00:00:00 [facility] Polio (IPV/OPV) 1999-11-18 Completed [facility] 00:00:00 [facility] DTAP 1999-11-18 Completed [facility] 00:00:00 [facility] HIB 4 Dose Schedule 1999-11-18 Completed [facility] rsity of 00:00:00 [facility] Hep B, Adol or Pedi 1999-11-18 Completed [facility] rs[facility] of Dosage 00:00:00 [facility] Polio (IPV/OPV) 1999-11-18 Completed [facility] 00:00:00 [facility] DTAP 1999-11-18 Completed [facility] 00:00:00 [facility] HIB 4 Dose Schedule 1999-11-18 Completed [facility] rs[facility] of 00:00:00 [facility] Hep B, Adol or Pedi 1999-11-18 Completed [facility] rs[facility] of Dosage 00:00:00 [facility] Polio (IPV/OPV) 1999-11-18 Completed [facility] 00:00:00 [facility] DTAP 1999-11-18 Completed [facility] 00:00:00 [facility] HIB 4 Dose Schedule 1999-11-18 Completed [facility] of 00:00:00 [facility] Hep B, Adol or Pedi 1999-11-18 Completed [facility] rs[facility] of Dosage 00:00:00 [facility] Polio (IPV/OPV) 1999-11-18 Completed [facility] 00:00:00 [facility] DTAP 1999-11-18 Completed [facility] 00:00:00 [facility] HIB 4 Dose Schedule 1999-11-18 Completed [facility] of 00:00:00 [facility] Hep B, Adol or Pedi 1999-11-18 Completed [facility] of Dosage 00:00:00 [facility] Polio (IPV/OPV) 1999-11-18 Completed [facility] 00:00:00 [facility] DTAP 1999-11-18 Completed [facility] 00:00:00 [facility] HIB 4 Dose Schedule 1999-11-18 Completed [facility] 00:00:00 [facility] Hep B, Adol or Pedi 1999-11-18 Completed [facility] of Dosage 00:00:00 [facility] Polio (IPV/OPV) 1999-11-18 Completed [facility] 00:00:00 [facility] DTAP 1999-11-18 Completed [facility] 00:00:00 [facility] HIB 4 Dose Schedule 1999-11-18 Completed [facility] 00:00:00 [facility] Hep B, Adol or Pedi 1999-11-18 Completed [facility] of Dosage 00:00:00 [facility] Polio (IPV/OPV) 1999-11-18 Completed [facility] 00:00:00 [facility] DTAP 1999-11-18 Completed [facility] 00:00:00 [facility] HIB 4 Dose Schedule 1999-11-18 Completed [facility] 00:00:00 [facility] Hep B, Adol or Pedi 1999-11-18 Completed [facility] of Dosage 00:00:00 [facility] Polio (IPV/OPV) 1999-11-18 Completed [facility] 00:00:00 [facility] DTAP 1999-11-18 Completed [facility] 00:00:00 [facility] HIB 4 Dose Schedule 1999-11-18 Completed [facility] 00:00:00 [facility] Hep B, Adol or Pedi 1999-11-18 Completed [facility] of Dosage 00:00:00 [facility] Polio (IPV/OPV) 1999-11-18 Completed [facility] 00:00:00 [facility] DTAP 1999-11-18 Completed [facility] 00:00:00 [facility] HIB 4 Dose Schedule 1999-11-18 Completed [facility] 00:00:00 [facility] Hep B, Adol or Pedi 1999-11-18 Completed [facility] Dosage 00:00:00 [facility] Polio (IPV/OPV) 1999-11-18 Completed [facility] 00:00:00 [facility] DTAP 1999-11-18 Completed [facility] 00:00:00 [facility] HIB 4 Dose Schedule 1999-11-18 Completed [facility] 00:00:00 [facility] Hep B, Adol or Pedi 1999-11-18 Completed [facility] of Dosage 00:00:00 [facility] Polio (IPV/OPV) 1999-11-18 Completed [facility] 00:00:00 [facility] DTAP 1999-11-18 Completed [facility] 00:00:00 [facility] HIB 4 Dose Schedule 1999-11-18 Completed [facility] 00:00:00 [facility] Hep B, Adol or Pedi 1999-11-18 Completed [facility] of Dosage 00:00:00 [facility] Polio (IPV/OPV) 1999-11-18 Completed [facility] 00:00:00 [facility] DTAP 1999-11-18 Completed [facility] 00:00:00 [facility] HIB 4 Dose Schedule 1999-11-18 Completed [facility] 00:00:00 [facility] Hep B, Adol or Pedi 1999-11-18 Completed [facility] of Dosage 00:00:00 [facility] Polio (IPV/OPV) 1999-11-18 Completed [facility] 00:00:00 [facility] DTAP 1999-11-18 Completed [facility] 00:00:00 [facility] HIB 4 Dose Schedule 1999-11-18 Completed [facility] 00:00:00 [facility] Hep B, Adol or Pedi 1999-11-18 Completed [facility] Dosage 00:00:00 [facility] Polio (IPV/OPV) 1999-11-18 Completed [facility] 00:00:00 [facility] DTAP 1999-11-18 Completed [facility] 00:00:00 [facility] HIB 4 Dose Schedule 1999-11-18 Completed [facility] 00:00:00 [facility] Hep B, Adol or Pedi 1999-11-18 Completed [facility] Dosage 00:00:00 [facility] Polio (IPV/OPV) 1999-11-18 Completed [facility] 00:00:00 [facility] DTAP 1999-11-18 Completed [facility] 00:00:00 [facility] HIB 4 Dose Schedule 1999-11-18 Completed [facility] 00:00:00 [facility] Hep B, Adol or Pedi 1999-11-18 Completed [facility] Dosage 00:00:00 [facility] Polio (IPV/OPV) 1999-11-18 Completed [facility] 00:00:00 [facility] DTAP 1999-11-18 Completed [facility] 00:00:00 [facility] HIB 4 Dose Schedule 1999-11-18 Completed [facility] 00:00:00 [facility] Hep B, Adol or Pedi 1999-11-18 Completed [facility] Dosage 00:00:00 [facility] Polio (IPV/OPV) 1999-11-18 Completed [facility] 00:00:00 [facility] DTAP 1999-11-18 Completed [facility] 00:00:00 [facility] HIB 4 Dose Schedule 1999-11-18 Completed [facility] 00:00:00 [facility] Hep B, Adol or Pedi 1999-11-18 Completed [facility] Dosage 00:00:00 [facility] Polio (IPV/OPV) 1999-11-18 Completed [facility] 00:00:00 [facility] DTAP 1999-11-18 Completed [facility] 00:00:00 [facility] HIB 4 Dose Schedule 1999-11-18 Completed [facility] 00:00:00 [facility] Hep B, Adol or Pedi 1999-11-18 Completed [facility] Dosage 00:00:00 [facility] Polio (IPV/OPV) 1999-11-18 Completed [facility] 00:00:00 [facility] DTAP 1999-11-18 Completed [facility] 00:00:00 [facility] HIB 4 Dose Schedule 1999-11-18 Completed [facility] 00:00:00 [facility] Hep B, Adol or Pedi 1999-11-18 Completed [facility] Dosage 00:00:00 [facility] Polio (IPV/OPV) 1999-11-18 Completed [facility] 00:00:00 [facility] DTAP 1999-11-18 Completed [facility] 00:00:00 [facility] HIB 4 Dose Schedule 1999-11-18 Completed [facility] 00:00:00 [facility] Hep B, Adol or Pedi 1999-11-18 Completed [facility] Dosage 00:00:00 [facility] Polio (IPV/OPV) 1999-11-18 Completed [facility] 00:00:00 [facility] DTAP 1999-11-18 Completed [facility] 00:00:00 [facility] HIB 4 Dose Schedule 1999-11-18 Completed [facility] 00:00:00 [facility] Hep B, Adol or Pedi 1999-11-18 Completed [facility] Dosage 00:00:00 [facility] Polio (IPV/OPV) 1999-11-18 Completed [facility] 00:00:00 [facility] DTAP 1999-11-18 Completed [facility] 00:00:00 [facility] HIB 4 Dose Schedule 1999-11-18 Completed [facility] 00:00:00 [facility] Hep B, Adol or Pedi 1999-11-18 Completed [facility] Dosage 00:00:00 [facility] Polio (IPV/OPV) 1999-11-18 Completed [facility] 00:00:00 [facility] DTAP 1999-11-18 Completed [facility] 00:00:00 [facility] HIB 4 Dose Schedule 1999-11-18 Completed [facility] 00:00:00 [facility] Hep B, Adol or Pedi 1999-11-18 Completed [facility] Dosage 00:00:00 [facility] Polio (IPV/OPV) 1999-11-18 Completed [facility] 00:00:00 [facility] DTAP 1999-11-18 Completed [facility] 00:00:00 [facility] HIB 4 Dose Schedule 1999-11-18 Completed [facility] 00:00:00 [facility] Hep B, Adol or Pedi 1999-11-18 Completed [facility] Dosage 00:00:00 [facility] Polio (IPV/OPV) 1999-11-18 Completed [facility] 00:00:00 [facility] DTAP 1999-11-18 Completed [facility] 00:00:00 [facility] HIB 4 Dose Schedule 1999-11-18 Completed [facility] 00:00:00 [facility] Hep B, Adol or Pedi 1999-11-18 Completed [facility] Dosage 00:00:00 [facility] Polio (IPV/OPV) 1999-11-18 Completed [facility] 00:00:00 [facility] DTAP 1999-11-18 Completed [facility] 00:00:00 [facility] HIB 4 Dose Schedule 1999-11-18 Completed [facility] 00:00:00 [facility] Hep B, Adol or Pedi 1999-11-18 Completed [facility] Dosage 00:00:00 [facility] Polio (IPV/OPV) 1999-11-18 Completed [facility] 00:00:00 [facility] DTAP 1999-11-18 Completed [facility] 00:00:00 [facility] HIB 4 Dose Schedule 1999-11-18 Completed [facility] 00:00:00 [facility] Hep B, Adol or Pedi 1999-11-18 Completed [facility] Dosage 00:00:00 [facility] Polio (IPV/OPV) 1999-11-18 Completed [facility] 00:00:00 [facility] DTAP 1999-11-18 Completed [facility] 00:00:00 [facility] HIB 4 Dose Schedule 1999-11-18 Completed [facility] 00:00:00 [facility] Hep B, Adol or Pedi 1999-11-18 Completed [facility] Dosage 00:00:00 [facility] Polio (IPV/OPV) 1999-11-18 Completed [facility] 00:00:00 [facility] DTAP 1999-11-18 Completed [facility] 00:00:00 [facility] HIB 4 Dose Schedule 1999-11-18 Completed [facility] 00:00:00 [facility] Hep B, Adol or Pedi 1999-11-18 Completed [facility] Dosage 00:00:00 [facility] Polio (IPV/OPV) 1999-11-18 Completed [facility] 00:00:00 [facility] DTAP 1999-11-18 Completed [facility] 00:00:00 [facility] HIB 4 Dose Schedule 1999-11-18 Completed [facility] 00:00:00 [facility] Hep B, Adol or Pedi 1999-11-18 Completed [facility] Dosage 00:00:00 [facility] Polio (IPV/OPV) 1999-11-18 Completed [facility] 00:00:00 [facility] DTAP 1999-11-18 Completed [facility] 00:00:00 [facility] HIB 4 Dose Schedule 1999-11-18 Completed [facility] 00:00:00 [facility] Hep B, Adol or Pedi 1999-11-18 Completed [facility] Dosage 00:00:00 [facility] Polio (IPV/OPV) 1999-11-18 Completed [facility] 00:00:00 [facility] DTAP 1999-11-18 Completed [facility] 00:00:00 [facility] HIB 4 Dose Schedule 1999-11-18 Completed [facility] 00:00:00 [facility] Hep B, Adol or Pedi 1999-11-18 Completed [facility] Dosage 00:00:00 [facility] Polio (IPV/OPV) 1999-11-18 Completed [facility] 00:00:00 [facility] DTAP 1999-11-18 Completed [facility] 00:00:00 [facility] HIB 4 Dose Schedule 1999-11-18 Completed [facility] 00:00:00 [facility] Hep B, Adol or Pedi 1999-11-18 Completed [facility] Dosage 00:00:00 [facility] Polio (IPV/OPV) 1999-11-18 Completed [facility] 00:00:00 [facility] DTAP 1999-11-18 Completed [facility] 00:00:00 [facility] HIB 4 Dose Schedule 1999-11-18 Completed [facility] 00:00:00 [facility] Hep B, Adol or Pedi 1999-11-18 Completed [facility] Dosage 00:00:00 [facility] Polio (IPV/OPV) 1999-11-18 Completed [facility] 00:00:00 [facility] DTAP 1999-11-18 Completed [facility] 00:00:00 [facility] HIB 4 Dose Schedule 1999-11-18 Completed [facility] 00:00:00 [facility] Hep B, Adol or Pedi 1999-11-18 Completed [facility] Dosage 00:00:00 [facility] Polio (IPV/OPV) 1999-11-18 Completed [facility] 00:00:00 [facility] DTAP 1999-11-18 Completed [facility] 00:00:00 [facility] HIB 4 Dose Schedule 1999-11-18 Completed [facility] 00:00:00 [facility] Hep B, Adol or Pedi 1999-11-18 Completed [facility] Dosage 00:00:00 [facility] Polio (IPV/OPV) 1999-11-18 Completed [facility] 00:00:00 [facility] DTAP 1999-11-18 Completed [facility] 00:00:00 [facility] HIB 4 Dose Schedule 1999-11-18 Completed [facility] 00:00:00 [facility] Hep B, Adol or Pedi 1999-11-18 Completed [facility] Dosage 00:00:00 [facility] Polio (IPV/OPV) 1999-11-18 Completed [facility] 00:00:00 [facility] DTAP 1999-11-18 Completed [facility] 00:00:00 [facility] HIB 4 Dose Schedule 1999-11-18 Completed [facility] 00:00:00 [facility] Hep B, Adol or Pedi 1999-11-18 Completed [facility] Dosage 00:00:00 [facility] Polio (IPV/OPV) 1999-11-18 Completed [facility] 00:00:00 [facility] DTAP 1999-11-18 Completed [facility] 00:00:00 [facility] HIB 4 Dose Schedule 1999-11-18 Completed [facility] 00:00:00 [facility] Hep B, Adol or Pedi 1999-11-18 Completed [facility] Dosage 00:00:00 [facility] Polio (IPV/OPV) 1999-11-18 Completed [facility] 00:00:00 [facility] DTAP 1999-11-18 Completed [facility] 00:00:00 [facility] HIB 4 Dose Schedule 1999-11-18 Completed [facility] 00:00:00 [facility] Hep B, Adol or Pedi 1999-11-18 Completed [facility] Dosage 00:00:00 [facility] Polio (IPV/OPV) 1999-11-18 Completed [facility] 00:00:00 [facility] DTAP 1999-11-18 Completed [facility] 00:00:00 [facility] HIB 4 Dose Schedule 1999-11-18 Completed [facility] 00:00:00 [facility] Hep B, Adol or Pedi 1999-11-18 Completed [facility] Dosage 00:00:00 [facility] Polio (IPV/OPV) 1999-11-18 Completed [facility] 00:00:00 [facility] DTAP 1999-11-18 Completed [facility] 00:00:00 [facility] HIB 4 Dose Schedule 1999-11-18 Completed [facility] 00:00:00 [facility] Hep B, Adol or Pedi 1999-11-18 Completed [facility] Dosage 00:00:00 [facility] Polio (IPV/OPV) 1999-11-18 Completed [facility] 00:00:00 [facility] DTAP 1999-11-18 Completed [facility] 00:00:00 [facility] HIB 4 Dose Schedule 1999-11-18 Completed [facility] 00:00:00 [facility] Hep B, Adol or Pedi 1999-11-18 Completed [facility] Dosage 00:00:00 [facility] Polio (IPV/OPV) 1999-11-18 Completed [facility] 00:00:00 [facility] DTAP 1999-11-18 Completed [facility] 00:00:00 [facility] HIB 4 Dose Schedule 1999-11-18 Completed [facility] 00:00:00 [facility] Hep B, Adol or Pedi 1999-11-18 Completed [facility] Dosage 00:00:00 [facility] Polio (IPV/OPV) 1999-11-18 Completed [facility] 00:00:00 [facility] DTAP 1999-11-18 Completed [facility] 00:00:00 [facility] HIB 4 Dose Schedule 1999-11-18 Completed [facility] 00:00:00 [facility] Hep B, Adol or Pedi 1999-11-18 Completed [facility] Dosage 00:00:00 [facility] Polio (IPV/OPV) 1999-11-18 Completed [facility] 00:00:00 [facility] DTAP 1999-11-18 Completed [facility] 00:00:00 [facility] HIB 4 Dose Schedule 1999-11-18 Completed [facility] 00:00:00 [facility] Hep B, Adol or Pedi 1999-11-18 Completed [facility] Dosage 00:00:00 [facility] Polio (IPV/OPV) 1999-11-18 Completed [facility] 00:00:00 [facility] DTAP 1999-11-18 Completed [facility] 00:00:00 [facility] HIB 4 Dose Schedule 1999-11-18 Completed [facility] 00:00:00 [facility] Hep B, Adol or Pedi 1999-11-18 Completed [facility] Dosage 00:00:00 [facility] Polio (IPV/OPV) 1999-11-18 Completed [facility] 00:00:00 [facility] DTAP 1999-11-18 Completed [facility] 00:00:00 [facility] HIB 4 Dose Schedule 1999-11-18 Completed [facility] 00:00:00 [facility] Hep B, Adol or Pedi 1999-11-18 Completed [facility] Dosage 00:00:00 [facility] Polio (IPV/OPV) 1999-11-18 Completed [facility] 00:00:00 [facility] DTAP 1999-11-18 Completed [facility] 00:00:00 [facility] HIB 4 Dose Schedule 1999-11-18 Completed [facility] 00:00:00 [facility] Hep B, Adol or Pedi 1999-11-18 Completed [facility] Dosage 00:00:00 [facility] Polio (IPV/OPV) 1999-11-18 Completed [facility] 00:00:00 [facility] DTAP 1999-11-18 Completed [facility] 00:00:00 [facility] HIB 4 Dose Schedule 1999-11-18 Completed [facility] 00:00:00 [facility] Hep B, Adol or Pedi 1999-11-18 Completed [facility] Dosage 00:00:00 [facility] Polio (IPV/OPV) 1999-11-18 Completed [facility] 00:00:00 [facility] DTAP 1999-11-18 Completed [facility] 00:00:00 [facility] HIB 4 Dose Schedule 1999-11-18 Completed [facility] 00:00:00 [facility] Hep B, Adol or Pedi 1999-11-18 Completed [facility] Dosage 00:00:00 [facility] Polio (IPV/OPV) 1999-11-18 Completed [facility] 00:00:00 [facility] DTAP 1999-11-18 Completed [facility] 00:00:00 [facility] HIB 4 Dose Schedule 1999-11-18 Completed [facility] 00:00:00 [facility] Hep B, Adol or Pedi 1999-11-18 Completed [facility] Dosage 00:00:00 [facility] Polio (IPV/OPV) 1999-11-18 Completed [facility] 00:00:00 [facility] DTAP 1999-11-18 Completed [facility] 00:00:00 [facility] HIB 4 Dose Schedule 1999-11-18 Completed [facility] 00:00:00 [facility] Hep B, Adol or Pedi 1999-11-18 Completed [facility] Dosage 00:00:00 [facility] Polio (IPV/OPV) 1999-11-18 Completed [facility] 00:00:00 [facility] DTAP 1999-11-18 Completed [facility] 00:00:00 [facility] HIB 4 Dose Schedule 1999-11-18 Completed [facility] 00:00:00 [facility] Hep B, Adol or Pedi 1999-11-18 Completed [facility] Dosage 00:00:00 [facility] Polio (IPV/OPV) 1999-11-18 Completed [facility] 00:00:00 [facility] DTAP 1999-11-18 Completed [facility] 00:00:00 [facility] HIB 4 Dose Schedule 1999-11-18 Completed [facility] 00:00:00 [facility] Hep B, Adol or Pedi 1999-11-18 Completed [facility] Dosage 00:00:00 [facility] Polio (IPV/OPV) 1999-11-18 Completed [facility] 00:00:00 [facility] DTAP 1999-11-18 Completed [facility] 00:00:00 [facility] HIB 4 Dose Schedule 1999-11-18 Completed [facility] 00:00:00 [facility] Hep B, Adol or Pedi 1999-11-18 Completed [facility] Dosage 00:00:00 [facility] Polio (IPV/OPV) 1999-11-18 Completed [facility] 00:00:00 [facility] DTAP 1999-11-18 Completed [facility] 00:00:00 [facility] HIB 4 Dose Schedule 1999-11-18 Completed [facility] 00:00:00 [facility] Hep B, Adol or Pedi 1999-11-18 Completed [facility] Dosage 00:00:00 [facility] Polio (IPV/OPV) 1999-11-18 Completed [facility] 00:00:00 [facility] DTAP 1998 Completed [facility] 00:00:00 [facility] HIB 4 Dose Schedule 1998 Completed [facility] 00:00:00 [facility] Hep B, Adol or Pedi 1998 Completed [facility] Dosage 00:00:00 [facility] Polio (IPV/OPV) 1998 Completed [facility] 00:00:00 [facility] DTAP 1998 Completed [facility] 00:00:00 [facility] HIB 4 Dose Schedule 1998 Completed [facility] 00:00:00 [facility] Hep B, Adol or Pedi 1998 Completed [facility] Dosage 00:00:00 [facility] Polio (IPV/OPV) 1998 Completed [facility] 00:00:00 [facility] DTAP 1998 Completed [facility] 00:00:00 [facility] HIB 4 Dose Schedule 1998 Completed [facility] 00:00:00 [facility] Hep B, Adol or Pedi 1998 Completed [facility] Dosage 00:00:00 [facility] Polio (IPV/OPV) 1998 Completed [facility] 00:00:00 [facility] DTAP 1998 Completed [facility] 00:00:00 [facility] HIB 4 Dose Schedule 1998 Completed [facility] 00:00:00 [facility] Hep B, Adol or Pedi 1998 Completed [facility] Dosage 00:00:00 [facility] Polio (IPV/OPV) 1998 Completed [facility] 00:00:00 [facility] DTAP 1998 Completed [facility] 00:00:00 [facility] HIB 4 Dose Schedule 1998 Completed [facility] 00:00:00 [facility] Hep B, Adol or Pedi 1998 Completed [facility] Dosage 00:00:00 [facility] Polio (IPV/OPV) 1998 Completed [facility] 00:00:00 [facility] DTAP 1998 Completed [facility] 00:00:00 [facility] HIB 4 Dose Schedule 1998 Completed [facility] 00:00:00 [facility] Hep B, Adol or Pedi 1998 Completed [facility] Dosage 00:00:00 [facility] Polio (IPV/OPV) 1998 Completed [facility] 00:00:00 [facility] DTAP 1998 Completed [facility] 00:00:00 [facility] HIB 4 Dose Schedule 1998 Completed [facility] 00:00:00 [facility] Hep B, Adol or Pedi 1998 Completed [facility] Dosage 00:00:00 [facility] Polio (IPV/OPV) 1998 Completed [facility] 00:00:00 [facility] DTAP 1998 Completed [facility] 00:00:00 [facility] HIB 4 Dose Schedule 1998 Completed [facility] 00:00:00 [facility] Hep B, Adol or Pedi 1998 Completed [facility] Dosage 00:00:00 [facility] Polio (IPV/OPV) 1998 Completed [facility] 00:00:00 [facility] DTAP 1998 Completed [facility] 00:00:00 [facility] HIB 4 Dose Schedule 1998 Completed [facility] 00:00:00 [facility] Hep B, Adol or Pedi 1998 Completed [facility] Dosage 00:00:00 [facility] Polio (IPV/OPV) 1998 Completed [facility] 00:00:00 [facility] DTAP 1998 Completed [facility] 00:00:00 [facility] HIB 4 Dose Schedule 1998 Completed [facility] 00:00:00 [facility] Hep B, Adol or Pedi 1998 Completed [facility] Dosage 00:00:00 [facility] Polio (IPV/OPV) 1998 Completed [facility] 00:00:00 [facility] DTAP 1998 Completed [facility] 00:00:00 [facility] HIB 4 Dose Schedule 1998 Completed [facility] 00:00:00 [facility] Hep B, Adol or Pedi 1998 Completed [facility] Dosage 00:00:00 [facility] Polio (IPV/OPV) 1998 Completed [facility] 00:00:00 [facility] DTAP 1998 Completed [facility] 00:00:00 [facility] HIB 4 Dose Schedule 1998 Completed [facility] 00:00:00 [facility] Hep B, Adol or Pedi 1998 Completed [facility] Dosage 00:00:00 [facility] Polio (IPV/OPV) 1998 Completed [facility] 00:00:00 [facility] DTAP 1998 Completed [facility] 00:00:00 [facility] HIB 4 Dose Schedule 1998 Completed [facility] 00:00:00 [facility] Hep B, Adol or Pedi 1998 Completed [facility] Dosage 00:00:00 [facility] Polio (IPV/OPV) 1998 Completed [facility] 00:00:00 [facility] DTAP 1998 Completed [facility] 00[facility]00:00 [facility] HIB 4 Dose Schedule 1998 Completed [facility] 00:00:00 [facility] Hep B, Adol or Pedi 1998 Completed [facility] Dosage 00:00:00 [facility] Polio (IPV/OPV) 1998 Completed [facility] 00:00:00 [facility] DTAP 1998 Completed [facility] 00:00:00 [facility] HIB 4 Dose Schedule 1998 Completed [facility] 00:00:00 [facility] Hep B, Adol or Pedi 1998 Completed [facility] Dosage 00:00:00 [facility] Polio (IPV/OPV) 1998 Completed [facility] 00:00:00 [facility] DTAP 1998 Completed [facility] 00:00:00 [facility] HIB 4 Dose Schedule 1998 Completed [facility] 00:00:00 [facility] Hep B, Adol or Pedi 1998 Completed [facility] Dosage 00:00:00 [facility] Polio (IPV/OPV) 1998 Completed [facility] 00:00:00 [facility] DTAP 1998 Completed [facility] 00[facility]00:00 [facility] HIB 4 Dose Schedule 1998 Completed [facility] 00:00:00 [facility] Hep B, Adol or Pedi 1998 Completed [facility] Dosage 00:00:00 [facility] Polio (IPV/OPV) 1998 Completed [facility] 00:00:00 [facility] DTAP 1998 Completed [facility] 00:00:00 [facility] HIB 4 Dose Schedule 1998 Completed [facility] 00:00:00 [facility] Hep B, Adol or Pedi 1998 Completed [facility] Dosage 00:00:00 [facility] Polio (IPV/OPV) 1998 Completed [facility] 00:00:00 [facility] DTAP 1998 Completed [facility] 00:00:00 [facility] HIB 4 Dose Schedule 1998 Completed [facility] 00:00:00 [facility] Hep B, Adol or Pedi 1998 Completed [facility] Dosage 00:00:00 [facility] Polio (IPV/OPV) 1998 Completed [facility] 00:00:00 [facility] DTAP 1998 Completed [facility] 00:00:00 [facility] HIB 4 Dose Schedule 1998 Completed [facility] 00:00:00 [facility] Hep B, Adol or Pedi 1998 Completed [facility] Dosage 00:00:00 [facility] Polio (IPV/OPV) 1998 Completed [facility] 00:00:00 [facility] DTAP 1998 Completed [facility] 00:00:00 [facility] HIB 4 Dose Schedule 1998 Completed [facility] 00:00:00 [facility] Hep B, Adol or Pedi 1998 Completed [facility] Dosage 00:00:00 [facility] Polio (IPV/OPV) 1998 Completed [facility] 00:00:00 [facility] DTAP 1998 Completed [facility] 00:00:00 [facility] HIB 4 Dose Schedule 1998 Completed [facility] 00:00:00 [facility] Hep B, Adol or Pedi 1998 Completed [facility] Dosage 00:00:00 [facility] Polio (IPV/OPV) 1998 Completed [facility] 00:00:00 [facility] DTAP 1998 Completed [facility] 00:00:00 [facility] HIB 4 Dose Schedule 1998 Completed [facility] 00:00:00 [facility] Hep B, Adol or Pedi 1998 Completed [facility] Dosage 00:00:00 [facility] Polio (IPV/OPV) 1998 Completed [facility] 00:00:00 [facility] DTAP 1998 Completed [facility] 00:00:00 [facility] HIB 4 Dose Schedule 1998 Completed [facility] 00:00:00 [facility] Hep B, Adol or Pedi 1998 Completed [facility] Dosage 00:00:00 [facility] Polio (IPV/OPV) 1998 Completed [facility] 00:00:00 [facility] DTAP 1998 Completed [facility] 00:00:00 [facility] HIB 4 Dose Schedule 1998 Completed [facility] 00:00:00 [facility] Hep B, Adol or Pedi 1998 Completed [facility] Dosage 00:00:00 [facility] Polio (IPV/OPV) 1998 Completed [facility] 00:00:00 [facility] DTAP 1998 Completed [facility] 00:00:00 [facility] HIB 4 Dose Schedule 1998 Completed [facility] 00:00:00 [facility] Hep B, Adol or Pedi 1998 Completed [facility] Dosage 00:00:00 [facility] Polio (IPV/OPV) 1998 Completed [facility] 00:00:00 [facility] DTAP 1998 Completed [facility] 00:00:00 [facility] HIB 4 Dose Schedule 1998 Completed [facility] 00:00:00 [facility] Hep B, Adol or Pedi 1998 Completed [facility] Dosage 00:00:00 [facility] Polio (IPV/OPV) 1998 Completed [facility] 00:00:00 [facility] DTAP 1998 Completed [facility] 00:00:00 [facility] HIB 4 Dose Schedule 1998 Completed [facility] 00:00:00 [facility] Hep B, Adol or Pedi 1998 Completed [facility] Dosage 00:00:00 [facility] Polio (IPV/OPV) 1998 Completed [facility] 00:00:00 [facility] DTAP 1998 Completed [facility] 00:00:00 [facility] HIB 4 Dose Schedule 1998 Completed [facility] 00:00:00 [facility] Hep B, Adol or Pedi 1998 Completed [facility] Dosage 00:00:00 [facility] Polio (IPV/OPV) 1998 Completed [facility] 00:00:00 [facility] DTAP 1998 Completed [facility] 00:00:00 [facility] HIB 4 Dose Schedule 1998 Completed [facility] 00:00:00 [facility] Hep B, Adol or Pedi 1998 Completed [facility] Dosage 00:00:00 [facility] Polio (IPV/OPV) 1998 Completed [facility] 00:00:00 [facility] DTAP 1998 Completed [facility] 00:00:00 [facility] HIB 4 Dose Schedule 1998 Completed [facility] 00:00:00 [facility] Hep B, Adol or Pedi 1998 Completed [facility] Dosage 00:00:00 [facility] Polio (IPV/OPV) 1998 Completed [facility] 00:00:00 [facility] DTAP 1998 Completed [facility] 00:00:00 [facility] HIB 4 Dose Schedule 1998 Completed [facility] 00:00:00 [facility] Hep B, Adol or Pedi 1998 Completed [facility] Dosage 00:00:00 [facility] Polio (IPV/OPV) 1998 Completed [facility] 00:00:00 [facility] DTAP 1998 Completed [facility] 00:00:00 [facility] HIB 4 Dose Schedule 1998 Completed [facility] 00:00:00 [facility] Hep B, Adol or Pedi 1998 Completed [facility] Dosage 00:00:00 [facility] Polio (IPV/OPV) 1998 Completed [facility] 00:00:00 [facility] DTAP 1998 Completed [facility] 00:00:00 [facility] HIB 4 Dose Schedule 1998 Completed [facility] 00:00:00 [facility] Hep B, Adol or Pedi 1998 Completed [facility] Dosage 00:00:00 [facility] Polio (IPV/OPV) 1998 Completed [facility] 00:00:00 [facility] DTAP 1998 Completed [facility] 00:00:00 [facility] HIB 4 Dose Schedule 1998 Completed [facility] 00:00:00 [facility] Hep B, Adol or Pedi 1998 Completed [facility] Dosage 00:00:00 [facility] Polio (IPV/OPV) 1998 Completed [facility] 00:00:00 [facility] DTAP 1998 Completed [facility] 00:00:00 [facility] HIB 4 Dose Schedule 1998 Completed [facility] 00:00:00 [facility] Hep B, Adol or Pedi 1998 Completed [facility] Dosage 00:00:00 [facility] Polio (IPV/OPV) 1998 Completed [facility] 00:00:00 [facility] DTAP 1998 Completed [facility] 00:00:00 [facility] HIB 4 Dose Schedule 1998 Completed [facility] 00:00:00 [facility] Hep B, Adol or Pedi 1998 Completed [facility] Dosage 00:00:00 [facility] Polio (IPV/OPV) 1998 Completed [facility] 00:00:00 [facility] DTAP 1998 Completed [facility] 00:00:00 [facility] HIB 4 Dose Schedule 1998 Completed [facility] 00:00:00 [facility] Hep B, Adol or Pedi 1998 Completed [facility] Dosage 00:00:00 [facility] Polio (IPV/OPV) 1998 Completed [facility] 00:00:00 [facility] DTAP 1998 Completed [facility] 00:00:00 [facility] HIB 4 Dose Schedule 1998 Completed [facility] 00:00:00 [facility] Hep B, Adol or Pedi 1998 Completed [facility] Dosage 00:00:00 [facility] Polio (IPV/OPV) 1998 Completed [facility] 00:00:00 [facility] DTAP 1998 Completed [facility] 00:00:00 [facility] HIB 4 Dose Schedule 1998 Completed [facility] 00:00:00 [facility] Hep B, Adol or Pedi 1998 Completed [facility] Dosage 00:00:00 [facility] Polio (IPV/OPV) 1998 Completed [facility] 00:00:00 [facility] DTAP 1998 Completed [facility] 00:00:00 [facility] HIB 4 Dose Schedule 1998 Completed [facility] 00:00:00 [facility] Hep B, Adol or Pedi 1998 Completed [facility] Dosage 00:00:00 [facility] Polio (IPV/OPV) 1998 Completed [facility] 00:00:00 [facility] DTAP 1998 Completed [facility] 00:00:00 [facility] HIB 4 Dose Schedule 1998 Completed [facility] 00:00:00 [facility] Hep B, Adol or Pedi 1998 Completed [facility] Dosage 00:00:00 [facility] Polio (IPV/OPV) 1998 Completed [facility] 00:00:00 [facility] DTAP 1998 Completed [facility] 00:00:00 [facility] HIB 4 Dose Schedule 1998 Completed [facility] 00:00:00 [facility] Hep B, Adol or Pedi 1998 Completed [facility] Dosage 00:00:00 [facility] Polio (IPV/OPV) 1998 Completed [facility] 00:00:00 [facility] DTAP 1998 Completed [facility] 00:00:00 [facility] HIB 4 Dose Schedule 1998 Completed [facility] 00:00:00 [facility] Hep B, Adol or Pedi 1998 Completed [facility] Dosage 00:00:00 [facility] Polio (IPV/OPV) 1998 Completed [facility] 00:00:00 [facility] DTAP 1998 Completed [facility] 00:00:00 [facility] HIB 4 Dose Schedule 1998 Completed [facility] 00:00:00 [facility] Hep B, Adol or Pedi 1998 Completed [facility] Dosage 00:00:00 [facility] Polio (IPV/OPV) 1998 Completed [facility] 00:00:00 [facility] DTAP 1998 Completed [facility] 00:00:00 [facility] HIB 4 Dose Schedule 1998 Completed [facility] 00:00:00 [facility] Hep B, Adol or Pedi 1998 Completed [facility] Dosage 00:00:00 [facility] Polio (IPV/OPV) 1998 Completed [facility] 00:00:00 [facility] DTAP 1998 Completed [facility] 00:00:00 [facility] HIB 4 Dose Schedule 1998 Completed [facility] 00:00:00 [facility] Hep B, Adol or Pedi 1998 Completed [facility] Dosage 00:00:00 [facility] Polio (IPV/OPV) 1998 Completed [facility] 00:00:00 [facility] DTAP 1998 Completed [facility] 00:00:00 [facility] HIB 4 Dose Schedule 1998 Completed [facility] 00:00:00 [facility] Hep B, Adol or Pedi 1998 Completed [facility] Dosage 00:00:00 [facility] Polio (IPV/OPV) 1998 Completed [facility] 00:00:00 [facility] DTAP 1998 Completed [facility] 00:00:00 [facility] HIB 4 Dose Schedule 1998 Completed [facility] 00:00:00 [facility] Hep B, Adol or Pedi 1998 Completed [facility] Dosage 00:00:00 [facility] Polio (IPV/OPV) 1998 Completed [facility] 00:00:00 [facility] DTAP 1998 Completed [facility] 00:00:00 [facility] HIB 4 Dose Schedule 1998 Completed [facility] 00:00:00 [facility] Hep B, Adol or Pedi 1998 Completed [facility] Dosage 00:00:00 [facility] Polio (IPV/OPV) 1998 Completed [facility] 00:00:00 [facility] DTAP 1998 Completed [facility] 00:00:00 [facility] HIB 4 Dose Schedule 1998 Completed [facility] 00:00:00 [facility] Hep B, Adol or Pedi 1998 Completed [facility] Dosage 00:00:00 [facility] Polio (IPV/OPV) 1998 Completed [facility] 00:00:00 [facility] DTAP 1998 Completed [facility] 00:00:00 [facility] HIB 4 Dose Schedule 1998 Completed [facility] 00:00:00 [facility] Hep B, Adol or Pedi 1998 Completed [facility] Dosage 00:00:00 [facility] Polio (IPV/OPV) 1998 Completed [facility] 00:00:00 [facility] DTAP 1998 Completed [facility] 00:00:00 [facility] HIB 4 Dose Schedule 1998 Completed [facility] 00:00:00 [facility] Hep B, Adol or Pedi 1998 Completed [facility] Dosage 00:00:00 [facility] Polio (IPV/OPV) 1998 Completed [facility] 00:00:00 [facility] DTAP 1998 Completed [facility] 00:00:00 [facility] HIB 4 Dose Schedule 1998 Completed [facility] 00:00:00 [facility] Hep B, Adol or Pedi 1998 Completed [facility] Dosage 00:00:00 [facility] Polio (IPV/OPV) 1998 Completed [facility] 00:00:00 [facility] DTAP 1998 Completed [facility] 00:00:00 [facility] HIB 4 Dose Schedule 1998 Completed [facility] 00:00:00 [facility] Hep B, Adol or Pedi 1998 Completed [facility] Dosage 00:00:00 [facility] Polio (IPV/OPV) 1998 Completed [facility] 00:00:00 [facility] DTAP 1998 Completed [facility] 00:00:00 [facility] HIB 4 Dose Schedule 1998 Completed [facility] 00:00:00 [facility] Hep B, Adol or Pedi 1998 Completed [facility] Dosage 00:00:00 [facility] Polio (IPV/OPV) 1998 Completed [facility] 00:00:00 [facility] DTAP 1998 Completed [facility] 00:00:00 [facility] HIB 4 Dose Schedule 1998 Completed [facility] 00:00:00 [facility] Hep B, Adol or Pedi 1998 Completed [facility] Dosage 00:00:00 [facility] Polio (IPV/OPV) 1998 Completed [facility] 00:00:00 [facility] DTAP 1998 Completed [facility] 00:00:00 [facility] HIB 4 Dose Schedule 1998 Completed [facility] 00:00:00 [facility] Hep B, Adol or Pedi 1998 Completed [facility] Dosage 00:00:00 [facility] Polio (IPV/OPV) 1998 Completed [facility] 00:00:00 [facility] DTAP 1998 Completed [facility] 00:00:00 [facility] HIB 4 Dose Schedule 1998 Completed [facility] 00:00:00 [facility] Hep B, Adol or Pedi 1998 Completed [facility] Dosage 00:00:00 [facility] Polio (IPV/OPV) 1998 Completed [facility] 00:00:00 [facility] DTAP 1998 Completed [facility] 00:00:00 [facility] HIB 4 Dose Schedule 1998 Completed [facility] 00:00:00 [facility] Hep B, Adol or Pedi 1998 Completed [facility] Dosage 00:00:00 [facility] Polio (IPV/OPV) 1998 Completed [facility] 00:00:00 [facility] DTAP 1998 Completed [facility] 00:00:00 [facility] HIB 4 Dose Schedule 1998 Completed [facility] 00:00:00 [facility] Hep B, Adol or Pedi 1998 Completed [facility] Dosage 00:00:00 [facility] Polio (IPV/OPV) 1998 Completed [facility] 00:00:00 [facility] DTAP 1998 Completed [facility] 00:00:00 [facility] HIB 4 Dose Schedule 1998 Completed [facility] 00:00:00 [facility] Hep B, Adol or Pedi 1998 Completed [facility] Dosage 00:00:00 [facility] Polio (IPV/OPV) 1998 Completed [facility] 00:00:00 [facility] DTAP 1998 Completed [facility] 00:00:00 [facility] HIB 4 Dose Schedule 1998 Completed [facility] 00:00:00 [facility] Hep B, Adol or Pedi 1998 Completed [facility] Dosage 00:00:00 [facility] Polio (IPV/OPV) 1998 Completed [facility] 00:00:00 [facility] DTAP 1998 Completed [facility] 00:00:00 [facility] HIB 4 Dose Schedule 1998 Completed [facility] 00:00:00 [facility] Hep B, Adol or Pedi 1998 Completed [facility] Dosage 00:00:00 [facility] Polio (IPV/OPV) 1998 Completed [facility] 00:00:00 [facility] DTAP 1998 Completed [facility] 00:00:00 [facility] HIB 4 Dose Schedule 1998 Completed [facility] 00:00:00 [facility] Hep B, Adol or Pedi 1998 Completed [facility] Dosage 00:00:00 [facility] Polio (IPV/OPV) 1998 Completed [facility] 00:00:00 [facility] DTAP 1998 Completed [facility] 00:00:00 [facility] HIB 4 Dose Schedule 1998 Completed [facility] 00:00:00 [facility] Hep B, Adol or Pedi 1998 Completed [facility] Dosage 00:00:00 [facility] Polio (IPV/OPV) 1998 Completed [facility] 00:00:00 [facility] DTAP 1998 Completed [facility] 00:00:00 [facility] HIB 4 Dose Schedule 1998 Completed [facility] 00:00:00 [facility] Hep B, Adol or Pedi 1998 Completed [facility] Dosage 00:00:00 [facility] Polio (IPV/OPV) 1998 Completed [facility] [...] 1998 Completed [facility] Dosage 00:00:00 [facility] Hep B, Adol or Pedi 1998 Completed [facility] Dosage 00:00:00 [facility] Hep B, Adol or Pedi 1998 Completed [facility] Dosage 00:00:00 [facility] Hep B, Adol or Pedi 1998 Completed [facility] Dosage 00:00:00 [facility] Hep B, Adol or Pedi 1998 Completed [facility] Dosage 00:00:00 [facility] Hep B, Adol or Pedi 1998 Completed [facility] Dosage 00:00:00 [facility] Hep B, Adol or Pedi 1998 Completed [facility] Dosage 00:00:00 [facility] Hep B, Adol or Pedi 1998 Completed [facility] Dosage 00:00:00 [facility] Hep B, Adol or Pedi 1998 Completed [facility] Dosage 00:00:00 [facility] Hep B, Adol or Pedi 1998 Completed [facility] Dosage 00:00:00 [facility] Vital Signs Vital Name Observation Time Observation Value Comments Source Systolic blood 2022-11-16 118 mm[Hg] [facility] pressure 20:26:00 [facility] Diastolic blood 2022-11-16 86 mm[Hg] [facility] pressure 20:26:00 [facility] Heart rate 2022-11-16 91 /min [facility] 20:26:00 [facility] Body temperature 2022-11-16 36.72 Delfina [facility] 20:26:00 [facility] Respiratory rate 2022-11-16 16 /min [facility] 20:26:00 [facility] Body height 2022-11-16 157.5 cm University [facility] 20:26:00 [facility] Body weight 2022-11-16 85.73 kg University of 20:26:00 [facility] BMI 2022-11-16 34.57 kg/m2 [facility] 20:26:00 [facility] Oxygen saturation 2022-11-16 95 /min [facility] Arterial blood 20:26:00 [facility] Systolic blood 2022-10-27 137 mm[Hg] [facility] pressure 15:27:00 [facility] Diastolic blood 2022-10-27 85 mm[Hg] [facility] pressure 15:27:00 [facility] Heart rate 2022-10-27 89 /min [facility] 15:27:00 [facility] Body temperature 2022-10-27 36.72 Delfina [facility] 15:27:00 [facility] Respiratory rate 2022-10-27 20 /min [facility] 15:27:00 [facility] Body height 2022-10-27 157.5 cm [facility] 15:27:00 [facility] Body weight 2022-10-27 85.872 kg [facility] 15:27:00 [facility] BMI 2022-10-27 34.63 kg/m2 [facility] 15:27:00 [facility] Oxygen saturation 2022-10-27 100 /min [facility] in Arterial blood 15:27:00 [facility] Systolic blood 2022-10-16 124 mm[Hg] [facility] pressure 17:17:00 [facility] Diastolic blood 2022-10-16 83 mm[Hg] [facility] pressure 17:17:00 [facility] Heart rate 2022-10-16 73 /min [facility] 17:17:00 [facility] Body temperature 2022-10-16 36.61 Delfina [facility] 17:17:00 [facility] Respiratory rate 2022-10-16 20 /min [facility] 17:17:00 [facility] Oxygen saturation 2022-10-16 97 /min [facility] in Arterial blood 17:17:00 [facility] Body height 2022-10-13 157.5 cm [facility] 01:28:00 [facility] Body weight 2022-10-13 87.998 kg University of 01:28:00 [facility] BMI 2022-10-13 35.48 kg/m2 [facility] 01:28:00 [facility] Systolic blood 2022-08-10 131 mm[Hg] Provider [facility] pressure 14:11:00 notified [facility] Diastolic blood 2022-08-10 93 mm[Hg] Provider [facility] pressure 14:11:00 notified [facility] Heart rate 2022-08-10 83 /min [facility] 14:11:00 [facility] Body temperature 2022-08-10 36.72 Delfina [facility] 14:10:00 [facility] Respiratory rate 2022-08-10 18 /min [facility] 14:10:00 [facility] Body height 2022-08-10 157.5 cm [facility] 14:10:00 [facility] Body weight 2022-08-10 86.592 kg [facility] 14:10:00 [facility] BMI 2022-08-10 34.92 kg/m2 [facility] 14:10:00 [facility] Oxygen saturation 2022-08-10 98 /min [facility] in Arterial blood 14:10:00 [place] [facility] Systolic blood 2022-07-20 134 mm[Hg] [facility] pressure 20:35:00 [facility] Diastolic blood 2022-07-20 97 mm[Hg] [facility] pressure 20:35:00 [facility] Respiratory rate 2022-07-20 18 /min [facility] 20:24:00 [facility] Body height 2022-07-20 157.5 cm [facility] 20:24:00 [facility] Body weight 2022-07-20 85.73 kg [facility] 20:24:00 [facility] BMI 2022-07-20 34.57 kg/m2 [facility] 20:24:00 [facility] Heart rate 2022-07-20 66 /min [facility] 20:24:00 [facility] Body temperature 2022-07-20 36.83 Delfina [facility] 20:24:00 [facility] Systolic blood 2022-07-06 121 mm[Hg] [facility] pressure 13:52:00 [facility] Diastolic blood 2022-07-06 88 mm[Hg] [facility] pressure 13:52:00 [facility] Heart rate 2022-07-06 70 /min [facility] 13:52:00 [facility] Body temperature 2022-07-06 36.28 Delfina [facility] 13:51:00 [facility] [facility] Respiratory rate 2022-07-06 18 /min University of 13:51:00 [facility] Body height 2022-07-06 157.5 cm University of 13:51:00 [facility] Body weight 2022-07-06 87 kg University of 13:51:00 [facility] BMI 2022-07-06 35.08 kg/m2 University of 13:51:00 [facility] Oxygen saturation 2022-07-06 98 /min University of in Arterial blood 13:51:00 [place] [facility] Pulse oximetry Branch Systolic blood 2022-06-25 130 mm[Hg] University of pressure 21:34:00 [facility] Diastolic blood 2022-06-25 90 mm[Hg] University o f pressure 21:34:00 [facility] Heart rate 2022-06-25 88 /min University of 21:34:00 [facility] Body temperature 2022-06-25 36.83 Delfina University of 21:34:00 [facility] Respiratory rate 2022-06-25 18 /min University of 21:34:00 [facility] Body height 2022-06-25 157.5 cm University of 21:34:00 [facility] Body weight 2022-06-25 86.637 kg University of 21:34:00 [facility] BMI 2022-06-25 34.93 kg/m2 University of 21:34:00 [facility] Systolic blood 2022-06-22 118 mm[Hg] University of pressure 23:53:00 [facility] Diastolic blood 2022-06-22 89 mm[Hg] University o f pressure 23:53:00 [facility] Heart rate 2022-06-22 74 /min University of 23:53:00 [facility] Respiratory rate 2022-06-22 16 /min University of 23:53:00 [facility] Oxygen saturation 2022-06-22 98 /min University in Arterial blood 23:53:00 [facility] by Pulse oximetry Branch Body temperature 2022-06-22 37.22 Delfina University of 18:35:00 [facility] Body height 2022-06-22 157.5 cm University of 18:35:00 [facility] Body weight 2022-06-22 87.091 kg University of 18:35:00 [facility] BMI 2022-06-22 35.12 kg/m2 University of 18:35:00 [facility] Systolic blood 2022-06-22 137 mm[Hg] University of pressure 18:17:00 [facility] Diastolic blood 2022-06-22 102 mm[Hg] University o f pressure 18:17:00 [facility] Heart rate 2022-06-22 80 /min University of 18:15:00 [facility] Body temperature 2022-06-22 37.11 Delfina University of 18:15:00 [facility] Respiratory rate 2022-06-22 16 /min University of 18:15:00 [facility] Body height 2022-06-22 157.5 cm University of 18:15:00 [facility] Body weight 2022-06-22 87.363 kg University of 18:15:00 [facility] BMI 2022-06-22 35.23 kg/m2 University of 18:15:00 [facility] Oxygen saturation 2022-06-22 97 /min University of in Arterial blood 18:15:00 [place] [facility] by Pulse oximetry Branch Systolic blood 2022-05-17 123 mm[Hg] University of pressure 22:01:00 [facility] Diastolic blood 2022-05-17 85 mm[Hg] University o f pressure 22:01:00 [facility] Heart rate 2022-05-17 70 /min University of ::00 [facility] Body temperature 2022-05-17 36.78 Delfina University of 22::00 [facility] Respiratory rate 2022-05-17 18 /min University of 22::00 [facility] Body height 2022-05-17 157.5 cm University of ::00 [facility] Body weight 2022-05-17 89.359 kg University of 22::00 [facility] BMI 2022-05-17 36.03 kg/m2 University of 22:01:00 [facility] Systolic blood 2022-05-11 123 mm[Hg] University of pressure 21:59:00 [place] [facility] Diastolic blood 2022-05-11 88 mm[Hg] University o f pressure 21:59:00 [facility] Heart rate 2022-05-11 69 /min University of 21:59:00 [facility] Body temperature 2022-05-11 37.44 Delfina University of 21:59:00 [facility] Respiratory rate 2022-05-11 16 /min University of 21:59:00 [facility] Body height 2022-05-11 157.5 cm University of 21:59:00 [facility] Body weight 2022-05-11 88.406 kg University of 21:59:00 [facility] BMI 2022-05-11 35.65 kg/m2 University of 21:59:00 [facility] Oxygen saturation 2022-05-11 99 /min [place] of in Arterial blood 21:59:00 [place] [facility] by Pulse oximetry Branch Systolic blood 2022-03-25 125 mm[Hg] University of pressure 18:55:00 [place] [facility] Diastolic blood 2022-03-25 90 mm[Hg] University o f pressure 18:55:00 [facility] Heart rate 2022-03-25 74 /min University of 18:55:00 [facility] Body temperature 2022-03-25 37.11 Delfina University of 18:55:00 [facility] Respiratory rate 2022-03-25 18 /min University of 18:55:00 [facility] Body height 2022-03-25 157.5 cm University of 18:55:00 [place] [facility] Body weight 2022-03-25 88.179 kg University of 18:55:00 [facility] BMI 2022-03-25 35.56 kg/m2 University of 18:55:00 [facility] Oxygen saturation 2022-03-25 98 /min University of in Arterial blood 18:55:00 [place] [facility] Pulse oximetry Branch Systolic blood 2022-02-26 134 mm[Hg] University of pressure 19:18:00 [facility] Diastolic blood 2022-02-26 87 mm[Hg] University o f pressure 19:18:00 [facility] Heart rate 2022-02-26 82 /min University of 19:18:00 [facility] Body temperature 2022-02-26 37.11 Delfina University of 19:18:00 [facility] Respiratory rate 2022-02-26 16 /min University of 19:18:00 [facility] Body height 2022-02-26 160 cm University of 19:18:00 [facility] Body weight 2022-02-26 90.266 kg University of 19:18:00 [facility] BMI 2022-02-26 35.25 kg/m2 University of 19:18:00 [facility] Oxygen saturation 2022-02-26 98 /min University of in Arterial blood 19:18:00 [place] [facility] Pulse oximetry [facility] Systolic blood 2022-02-22 134 mm[Hg] University of pressure 22:48:00 [place] [facility] Diastolic blood 2022-02-22 84 mm[Hg] University o f pressure 22:48:00 [facility] Heart rate 2022-02-22 88 /min University of 22:48:00 [facility] Body temperature 2022-02-22 37.22 Delfina University of 22:48:00 [place] [facility] Respiratory rate 2022-02-22 16 /min University of 22:48:00 [facility] Body height 2022-02-22 160 cm University of 22:48:00 [facility] Body weight 2022-02-22 90.311 kg University of 22:48:00 [facility] BMI 2022-02-22 35.27 kg/m2 University of 22:48:00 [facility] Oxygen saturation 2022-02-22 98 /min [facility] in Arterial blood 22:48:00 [facility] Pulse oximetry [place] Systolic blood 2022-01-13 129 mm[Hg] University of pressure 19:07:00 [facility] Diastolic blood 2022-01-13 89 mm[Hg] University o f pressure 19:07:00 [facility] Heart rate 2022-01-13 80 /min University of 19:07:00 [facility] Body temperature 2022-01-13 36.83 Delfina University of 19:07:00 [facility] Respiratory rate 2022-01-13 18 /min University of 19:07:00 [facility] Body height 2022-01-13 157.5 cm University of 19:07:00 [facility] Body weight 2022-01-13 88.996 kg University of 19:07:00 [facility] BMI 2022-01-13 35.89 kg/m2 University of 19:07:00 [facility] Systolic blood 2021-10-28 121 mm[Hg] University of pressure 15:36:00 [facility] Diastolic blood 2021-10-28 81 mm[Hg] University o f pressure 15:36:00 [facility] Heart rate 2021-10-28 73 /min University of 15:35:00 [facility] Body temperature 2021-10-28 37.22 Delfina University of 15:35:00 [facility] Body weight 2021-10-28 86.183 kg University of 15:35:00 [facility] BMI 2021-10-28 34.74 kg/m2 University of 15:35:00 [facility] Procedures Procedure Date / Time Performing Clinician Source Performed POCT URINALYSIS 2022-10-27 15:54:00 Steffany Zapata [facility] URINE CULTURE 2022-10-27 15:40:00 Steffany Zapata [facility] EXTERNAL PROVIDER RECORDS 2022-10-26 05:01:00 Doctor Unassigned, [facility] [place] [facility] MAGNESIUM 2022-10-14 05:15:00 Sami [facility] BASIC METABOLIC PANEL 2022-10-14 05:15:00 [facility] (NA, K, CL, CO2, GLUCOSE, [facility] BUN, CREATININE, CA) CBC WITH DIFF 2022-10-14 05:15:00 Sami [facility] XR SMALL BOWEL SERIES 2022-10-13 21:22:00 [facility] BASIC METABOLIC PANEL 2022-10-13 11:42:00 [facility] (NA, K, CL, CO2, GLUCOSE, [facility] BUN, CREATININE, CA) CBC WITH DIFF 2022-10-13 11:42:00 Sami [facility] BASIC METABOLIC PANEL 2022-10-12 20:34:00 [facility] (NA, K, CL, CO2, GLUCOSE, [facility] BUN, CREATININE, CA) CBC WITH DIFF 2022-10-12 20:34:00 Sami [facility] XR KUB 2022-10-12 19:50:00 [facility] EXTERNAL PROVIDER RECORDS 2022-07-21 05:01:00 Doctor Unassigned, [facility] Name [facility] MEDICATION CORRESPONDENCE 2022-07-01 05:01:00 Doctor Unassigned, [facility] Name [facility] URINALYSIS MICROSCOPIC 2022-06-25 22:26:00 Chacha Gomez [facility] URINE CULTURE 2022-06-25 21:56:00 Chacha Gomez [facility] POCT URINALYSIS W/O 2022-06-25 00:00:00 Chacha Gomez [facility] SPECIFIC GRAVITY [facility] CT ABDOMEN PELVIS W 2022-06-22 21:03:00 Elijah Hernandez [facility] CONTRAST Medical Branch LIPASE 2022-06-22 19:30:00 David Elijah [facility] COMP. METABOLIC PANEL 2022-06-22 19:30:00 Elijah Hernandez [facility] ([id number]) Medical [place] CBC WITH DIFF 2022-06-22 19:30:00 David Elijah [facility] LACTIC ACID WHOLE BLOOD 2022-06-22 19:29:00 Elijah Hernandez [facility] POCT TEST 2022-06-22 19:20:00 Elijah Hernandez [facility] URINALYSIS 2022-06-22 19:17:00 David Elijah [facility] CONSENT/REFUSAL FOR 2022-06-22 18:28:14 Doctor Unassigned, [facility]/REFUSAL FOR 2022-05-21 21:51:33 Doctor Unassigned, [facility] DIAGNOSIS AND TREATMENT [facility] PATIENT QUESTIONNAIRE 2022-05-19 06:01:00 Doctor Unassigned, [facility] POCT URINALYSIS W/O 2022-05-17 00:00:00 Zully Holt [facility] SPECIFIC GRAVITY [facility] POCT TEST 2022-03-25 20:00:00 Faith [facility] URINE CULTURE 2022-03-25 19:22:00 Faith [facility] GC, CHLAMYDIA, & M. 2022-03-25 19:22:00 Faith [facility] GENITALIUM AMPLIFIED Medical [facility] ASSAY GALV ONLY - VAGINAL 2022-03-25 19:22:00 Faith [facility] PATHOGENS BY NUCLEIC ACID Medica l Branch TESTING POCT URINALYSIS 2022-03-25 19:02:00 [facility] GC & CHLAMYDIA AMPLIFIED 2022-02-22 23:07:00 Rosa Erazo [facility] ASSAY [facility] Branch GALV ONLY - VAGINAL 2022-02-22 23:07:00 Rosa Erazo [facility] PATHOGENS BY NUCLEIC ACID Medica Branch TESTING POCT URINALYSIS 2022-02-22 22:54:00 Benny Steffany [facility] URINE CULTURE 2022-02-22 22:49:00 [facility] AUTHORIZATION FOR RELEASE 2022-01-19 05:01:00 Doctor Unassigned, [facility] [place] [facility] [place] AUTHORIZATION FOR RELEASE 2021-12-22 05:01:00 Doctor Unassigned, [facility] [place] [facility] AUTHORIZATION FOR RELEASE 2021-12-14 05:01:00 Doctor Unassigned, [facility] Name [facility] Encounters Start End Encounter Admission Attending Care Care Encounter Source Date/Time Date/Time Type Type Clinicians Facility Department ID 2022-12-09 2022-12-09 Outpatient R [facility] [id number] Univers 16:00:00 16:00:00 [facility] 2022-12-09 2022-12-09 Outpatient R [facility] [id number] Univers 09:00:00 09:00:00 [facility] 2022-12-01 2022-12-01 Outpatient R LELO [facility] [id number] Univers 11:00:00 11:00:00 GALINA [facility] 2022-11-16 2022-11-16 Office Jose[address] Koch [facility] 1.2.840.114 [id number] Univers 15:00:00 15:15:00 Visit HEALTH 350.1.13.10 it y of [place] 4.2.7.2.686 [facility] [id number] [address] OFFICE BUILDING 2022-11-16 2022-11-16 Outpatient R JOSEY KOCH [facility] [id number] Univers 15:00:00 15:00:00 [facility] 2022-10-27 2022-10-27 Outpatient R BENNY [facility] [id number] Univers 10:20:00 10:57:[address] [facility] 2022-10-27 2022-10-27 Urgent Steffany Zapata [facility] 1.2.840.114 [id number] Univers 10:20:00 10:57:51 Care Unknown, Attending HEALTH 350.1.13.10 ity [facility] 4.2.7.2.686 [place] VLADIMIR?BLEA [id number] Ia dical [facility] [address] [place] MEDICAL OFFICE BUILDING 2022-10-26 2022-10-26 Orders Doctor PHILL 1.2.840.114 [id number] Univers 00:00:00 00:00:00 Only Unassigned, PAIGE 350.1.13.10 ity of [place] [facility] 4.2.7.2.686 [place] [phone] [facility] 009 Branch 2022-10-18 2022-10-18 Transition CARMEN Rob 1.2.840.114 [id number] Univers 00:00:00 00:00:00 of Care Petra DE ANDAY 350.1.13.10 i ty [place] [id number] [facility] 403 Branch 2022-10-12 2022-10-16 Inpatient U JOSEY KOCH [facility] [place] [id number] Univers 13:23:00 13:30:00 ity of [facility] 2022-10-12 2022-10-16 Hospital Josey Koch 1.2.840.114 [id number] Univers 13:23:00 13:30:00 Encounter PAIGE 350.1.13.10 ity of HOSPITAL 4.2.7.2.686 [place] [id number] [facility] [address] [place] 2022-10-12 2022-10-[address] Koch [facility] 1.2.840.114 [id number] Univers 00:00:00 00:00:00 HEALTH 350.1.13.10 [place] [id number] [facility] [address] OFFICE BUILDING 2022-10-11 2022-10-11 Outpatient R UNKNOWN, [facility] [id number] Univers 10:20:00 10:20:00 ATTENDING ity of [facility] 2022-08-10 2022-08-10 Ultrasound Spec [facility] UNIVERSIT 1.2.840.114 [id number] Univers 10:00:00 10:15:00 Visit Angel Sams [facility] 350.1.13. 10 it[place] of CL[place] [id number] [facility] 316 Branch 2022-08-10 2022-08-10 Outpatient R FLAQUITA [facility] [id number] Univers 09:00:00 09:38:50 ANGEL ity [facility] 2022-08-10 2022-08-10 Office Aneta Joseph [facility] 1.2.840.114 [id number] Univers 09:00:00 09:38:50 Visit Angel Smas [facility] 350.1.13. 10 ity of CL[place] [id number] [facility] 071 Branch 2022-08-06 2022-08-06 Telemedici JasonRUST 1.2.840.114 10 [id number] Univers 16:30:00 17:00:00 ne Visit Chacha GUTIÉRREZ 350.1.13.10 ity of [place] [id number] [facility] 098 [facility] 2022-08-06 2022-08-06 Outpatient R CHACHA GOMEZ [facility] [id number] Univers 16:30:00 16:30:00 CHACHA GOMEZ olivier [facility] 2022-07-21 2022-07-21 Outpatient R LELO [facility] [id number] Univers 13:00:00 13:00:00 GALINA deras [facility] 2022-07-21 2022-07-21 Orders Doctor POLLOCK 1.2.840.114 [id number] Univers 00:00:00 00:00:00 Only Unassigned, PAIGE 350.1.13.10 ity of [facility] 4.2.7.2.686 [place] [id number] [facility] 009 Branch 2022-07-20 2022-07-20 Outpatient R LILIYA PATEL [facility] U [facility] [id number] Univers 15:15:00 15:47:52 LILIYA PATEL ity [facility] 2022-07-20 2022-07-20 Office [facility] 1.2.840.114 10 [id number] Univers 15:15:00 15:47:52 Visit Liliya márquez 350.1.13.10 ity [facility] 4[place] [id number] [facility] 134 [facility] 2022-07-20 2022-07-20 Telephone CLEMENTE Joseph 1.2.840.114 10 [id number] Univers 00:00:00 00:00:00 Aneta HEALTH 350.1.13.10 i [place] of [facility] [place] [id number] [facility] [address] [place] 2022-07-16 2022-07-16 Telephone PHILL Joseph [id number] Univers 00:00:00 00:00:00 Aneta GIBSON 350.1.13.10 it y [facility] 4.[place].7.2.[place] [id number] [facility] 009 Branch 2022-07-08 2022-07-08 Outpatient R YANET [facility] [id number] Univers 13:30:00 13:30:00 [facility] 2022-07-06 2022-07-06 Ultrasound Spec [facility]ERS[facility] 1.2.840.114 1 [id number] Univers 10:15:00 10:30:00 Visit Angel Sams HEALTH 350.1.13. 10 [place] [id number] [facility] 316 [address] 2022-07-06 2022-07-06 Office Aneta Joseph Kiesha [facility] 1.2.840.114 [id number] Univers 09:00:00 09:30:00 Visit Angel Sams HEALTH 350.1.13. 10 it[place] [id number] [facility] [address] [place] 2022-07-06 2022-07-06 Outpatient R FLAQUITA [facility] [id number] Univers 09:00:00 09:00:00 ANGEL mata [facility] 2022-07-06 2022-07-06 Telephone [facility] 1.2.840.114 [id number] Univers 00:00:00 00:00:00 Chacha GUTIÉRREZ 350.1.13.10 i ty of [place] [id number] Ia dical NAL 098 [facility] 2022-07-06 2022-07-06 Telephone [facility] 1.2.840.114 10 [id number] Univers 00:00:00 00:00:00 [facility] HEALTH 350.1.13.10 i [place] of [facility] [place] [id number] [address] 2022-07-06 2022-07-06 Telephone [facility] 1.2.840.114 10 [id number] Univers 00:00:00 00:00:00 [facility] 350.1.13.10 i ty of [facility] [place] [id number] [address] 2022-07-06 2022-07-06 Telephone [facility] 1.2.840.114 10 [id number] Univers 00:00:00 00:00:00 Aneta Y HEALTH 350.1.13.10 i [place] of [facility] [id number] [address] 2022-07-02 2022-07-02 Outpatient R LILIYA PATEL [facility] U [facility] [id number] Univers 15:00:00 15:00:[address] [facility] 2022-07-01 2022-07-01 Telephone [facility] 1.2.840.114 [id number] Univers 00:00:00 00:00:00 Chacha GUTIÉRREZ 350.1.13.10 i ty of [place] 4.2.7.2.686 [place] [id number] Ia dical NAL 098 [facility] 2022-07-01 2022-07-01 Orders Doctor PHILL 1.2.840.114 [id number] Univers 00:00:00 00:00:00 Only Unassigned, PAIGE 350.1.13.10 ity of [facility] 4.2.7.2.686 [facility] [id number] [facility] [address] [place] 2022-06-25 2022-06-25 Outpatient R KRISHNA GOMEZHA [facility] [id number] Univers 15:30:00 16:28:47 CHACHA GOMEZ itolivier [facility] 2022-06-25 2022-06-25 Office JasonRUST 1.2.840.114 [id number] Univers 15:30:00 16:28:47 Visit Chacha GUTIÉRREZ 350.1.13.10 i ty of [place] 4.2.7.2.686 [facility] [id number] Ia gilberto BURGER 098 [facility] 2022-06-22 2022-06-22 Emergency X DAVIDRUST ERT [id number] Univers 12:41:00 20:34:00 ELIJAH mata [facility] 2022-06-22 2022-06-22 Emergency DavidRUST 1.2.165.307 [id number] Univers 12:41:00 20:34:00 Elijah GUTIÉRREZ 350.1.13.10 i ty of [place] 4.2.7.2.686 [facility] [id number] [facility] [address] [place] 2022-06-22 2022-06-22 Nurse Nurse, [facility] 1.2.840.114 [id number] Univers 12:15:00 12:41:54 Visit Unknown, Attending HEALTH 350.1.13.10 ity of Steffany Zapata 4.2.7.2.686 [facility] [id number] Ia dical HECTOREY [address] [facility] OFFICE [facility] 2022-06-22 2022-06-22 Outpatient R SAWYER [facility] [id number] Univers 12:20:00 12:20:00 ATTENDING esperanza [facility] 2022-06-22 2022-06-22 Outpatient R BENNY [facility] [id number] Univers 12:15:00 12:15:00 STEFFANY mata [facility] 2022-06-22 2022-06-22 Orders Doctor POLLOCK 1.2.840.114 [id number] Univers 00:00:00 00:00:00 Only Unassigned, PAIGE 350.1.13.10 ity of [facility] 4.2.7.2.686 [place] [phone] [facility] [address] [place] 2022-06-03 2022-06-03 [facility] [id number] Univers 14:00:00 14:00:00 ZULLY itolivier [facility] 2022-05-24 2022-05-24 Telephone [facility] 1.2.840.114 [id number] Univers 00:00:00 00:00:00 Zully GUTIÉRREZ 350.1.13.10 i ty [facility] [place] [id number] Ia dical NAL 134 [facility] 2022-05-21 2022-05-21 [facility] [id number] Univers 15:51:32 23:59:00 [facility] 2022-05-21 2022-05-21 [facility] 1.2.840.114 [id number] Univers 15:45:00 23:59:00 Encounter Zully GUTIÉRREZ 350.1.13.10 ity [facility] [place] [id number] [facility] [address] [place] 2022-05-19 2022-05-19 [facility] [id number] Univers 10:00:00 11:06:31 CHACHA ity [facility] 2022-05-19 2022-05-19 Telephone [facility] 1.2.840.114 10 [id number] Univers 00:00:00 00:00:00 Zully GUTIÉRREZ 350.1.13.10 i ty [facility] 4[place] [id number] Ia dical NAL 134 [facility] 2022-05-19 2022-05-19 Orders Doctor POLLOCK 1.2.840.114 [id number] Univers 00:00:00 00:00:00 Only Unassigned, PAIGE 350.1.13.10 ity of [place] [facility] 4.2.7.2.686 [place] [id number] [place] [address] Branch 2022-05-18 2022-05-18 Case KASIA Holt 1.2.396.882 [id number] Univers 00:00:00 00:00:00 Management Zully PEDIATRIC 350.1.13.10 [place] [id number] [facility] PRIMARY [address] CARE CLINIC 2022-05-17 2022-05-17 Outpatient R YANET [facility] [id number] Univers 16:00:00 16:38:57 ZULLY [place]olivier [place] [facility] 2022-05-17 2022-05-17 Office Yanet LAPATTIE 1.2.883.539 [id number] Univers 16:00:00 16:38:57 Visit Zully GUTIÉRREZ 350.1.13.10 i ty of [place] [id number] Ia dical NAL [address] [place] [address] 2022-05-11 2022-05-11 Office Josey Koch [facility] 1.2.840.114 [id number] Univers 16:30:00 16:45:00 Visit [facility] 350.1.13.10 it y of [place]2.7.2.[place] [phone] [place] [address] [address] OFFICE BUILDING 2022-05-11 2022-05-11 Outpatient R JOSEY KOCH [facility] [id number] Univers 16:30:00 16:30:00 ity [facility] 2022-05-05 2022-05-05 Telephone Henrietta Santos [facility] 1.2.840.114 [id number] Univers 00:00:00 00:00:00 Edis GUTIÉRREZ 350.1.13.10 i ty [facility] 4.2.7.2.[place] [id number] Ia dical NAL [facility] [place] BUILDING 2022-04-27 2022-04-27 Outpatient R JOSEY KOCH [facility] [id number] Univers 14:00:00 14:00:00 ity of [facility] 2022-04-06 2022-04-06 Outpatient R AUGUST JOSEY [facility] [id number] Univers 08:45:00 08:45:00 ity of [facility] 2022-03-28 2022-03-28 Patient Ebrahim, [facility] 1.2.840.114 [id number] Univers 00:00:00 00:00:00 Secure Msg Ranma HEALTH 350.1.13.10 ity of [place] 4.2.7.2.686 Golden as VLADIMIR?BLEA [id number] Ia dical [facility] [address] MEDICAL OFFICE BUILDING 2022-03-25 2022-03-25 Ultrasound Spec Lab, Ang - [facility] 1.2.840.1 14 [id number] Univers 13:30:00 13:45:00 Visit EbAntonio soleria HEALTH 350.1.13.10 ity of [place] 4.2.7.2.686 [place] as VLADIMIR?BLEA [id number] Ia dicdaniel GO [address] MEDICAL OFFICE [facility] 2022-03-25 2022-03-25 Outpatient R EBRAARONEvaristo, [facility] [id number] Univers 12:40:00 13:23:47 RANIA ity of [facility] 2022-03-25 2022-03-25 Urgent EbraMara hughes [facility] 1.2.840.114 [id number] Univers 12:40:00 13:23:47 Care Unknown, [facility] HEALTH 350.1.13.10 ity of [place] 4.2.7.2.686 [place] as VLADIMIR?BLEA [id number] Ia dical DONAVAN [address] MEDICAL OFFICE BUILDING 2022-03-25 2022-03-25 Patient Ebryder, [facility] 1.2.840.114 [id number] Univers 00:00:00 00:00:00 Secure Msg Rania HEALTH 350.1.13.10 ity of [place] 4.2.7.2.686 [place] as VLADIMIR?BLEA [phone] [facility] [address] MEDICAL OFFICE BUILDING 2022-03-24 2022-03-24 Outpatient R UNKNOWN, [facility] [id number] Univers 17:20:00 17:20:00 ATTENDING ity of [facility] 2022-02-26 2022-02-26 Outpatient R JEEVAN [facility] [id number] Univers 13:00:00 13:40:20 LORENZA deras [facility] 2022-02-26 2022-02-26 Urgent Lorenza Chew [facility] 1.2.840 .114 [id number] Univers 13:00:00 13:40:20 Care Unknown, Attending HEALTH 350.1.13.10 ity of [place] 4.2.7.2.686 [place] as VLADIMIR?BLEA [id number] [address] OFFICE [facility] 2022-02-22 2022-02-22 Outpatient R KACEY [facility] [id number] Univers 16:40:00 17:15:39 ROSA celineolivier o braeden [facility] 2022-02-22 2022-02-22 Urgent Rosa Erazo [facility] 1.2.840. 114 [id number] Univers 16:40:00 17:15:39 Care Unknown, Attending HEALTH 350.1.13.10 ity of [place] 4.2.7.2.686 [place] as VLADIMIR?BLEA [id number] [facility] [address] [facility] OFFICE [facility] 2022-01-19 2022-01-19 Orders Doctor PHILL 1.2.840.114 [id number] Univers 00:00:00 00:00:00 Only Unassigned, PAIGE 350.1.13.10 ity of [facility] 4.2.7.2.686 [place] as [phone] [address] 2022-01-13 2022-01-13 Ultrasound Spec 2, Adc Lab [facility] 1.2.840.114 [id number] Univers 15:00:00 15:15:00 Visit Henrietta Santos 350.1.13.10 ity of [place] [phone] Ia dical [facility] 353 [facility] 2022-01-13 2022-01-13 Office Henrietta Santos [facility] 1.2.469.487 [id number] Univers 14:30:00 14:30:00 Visit Edis GUTIÉRREZ 350.1.13.10 i ty of [place] 4.2.7.2.[place] [id number] Ia dical [address] 2022-01-13 2022-01-13 Outpatient R HENRIETTA SANTOS [facility] [id number] Univers 14:30:00 14:19:51 ity [facility] 2022-01-05 2022-01-05 Outpatient R TAD [facility] [id number] Univers 09:10:00 09:10:00 LOKESH ity [facility] 2021-12-28 2021-12-28 Outpatient R ELENA [facility] [id number] Univers 15:00:00 15:00:00 [facility] 2021-12-28 2021-12-28 Outpatient R ELENA [facility] [id number] Univers 15:00:00 15:00:00 [facility] o [facility] 2021-12-28 2021-12-28 Outpatient R ELENA [facility] [id number] Univers 15:00:00 15:00:00 [facility] o [facility] 2021-12-28 2021-12-28 Outpatient R ELENA [facility] [id number] Univers 15:00:00 15:00:00 [facility] o [facility] 2021-12-22 2021-12-22 Orders Doctor POLLOCK 1.2.840.114 [id number] Univers 00:00:00 00:00:00 Only Unassigned, PAIGE 350.1.13.10 ity of [place] [facility] 4.2.7.2.686 [place] as [phone] [address] 2021-12-14 2021-12-14 Orders Doctor PHILL 1.2.840.114 [id number] Univers 00:00:00 00:00:00 Only Unassigned, PAIGE 350.1.13.10 ity of [place] [facility] 4.2.7.2.686 [place] as [id number] [address] 2021-12-11 2021-12-[address] [facility] 1.2.436.051 [id number] Univers 00:00:00 00:00:00 Lokesh ESCOBAR 350.1.13.10 ity of [facility] 4.2.7.2.686 [place] CENTER AT [phone] Ia gilberto JANE 198 [facility] 2021-10-28 2021-10-28 Office [facility] 1.2.209.419 [id number] Univers 10:00:00 11:33:53 Visit Edis GUTIÉRREZ 350.1.13.10 i ty [facility] 4.2.7.2.[place] [id number] Ia gilberto NAL [address] [facility] 2021-10-28 2021-10-28 Outpatient R TOM [facility] [id number] Univers 10:00:00 11:33:53 ity [facility] 2021-10-28 2021-10-28 Outpatient R TOM [facility] [id number] Univers 10:00:00 10:00:[facility] 2021-10-21 2021-10-21 Outpatient R TOM HENRIETTA [facility] [id number] Univers 15:30:00 15:30:00 [facility] 2021-10-12 2021-10-12 Outpatient R TAD [facility] [id number] Univers 13:50:00 13:50:00 LOKESH olivier [facility] 2021-10-09 2021-10-09 Imm/Inj Vaccine, [facility] Family Medicine [facility] 1.2.840.114 [id number] Univers 15:00:00 15:04:02 Visit Moe Marie 350.1.13 .10 ity [facility] 4.2.7.2.[place] [id number] Ia gilberto BURGER 044 [facility] 2021-10-09 2021-10-09 Outpatient Davion MARIE [facility] [id number] Univers 15:00:00 15:00:00 MOE mata [facility] 2021-10-09 2021-10-09 Outpatient Davion MARIE [facility] [id number] Univers 15:00:00 15:00:00 MOE bergery [facility] 2021-10-08 2021-10-08 Office Henrietta Santos [facility] 1.2.509.877 [id number] Univers 16:00:00 16:57:27 Visit Edis GUTIÉRREZ 350.1.13.10 i ty of [place] 4.2.7.2.686 [place] [phone] Ia dical NAL [address] [place] [address] 2021-10-08 2021-10-08 Outpatient R HENRIETTA SANTOS [facility] [id number] Univers 16:00:00 16:57:27 ity [facility] 2021-10-08 2021-10-08 Outpatient R HENRIETTA SANTOS [facility] [id number] Univers 08:15:00 08:15:00 [facility] 2021-10-08 2021-10-[address] [facility] 1.2.840.114 [id number] Univers 00:00:00 00:00:00 Secure Msg Rachelsaji GUTIÉRREZ 350.1.13.10 ity of [place] 4.2.7.2.[place] [id number] Ia dical NAL [address] [place] [address] 2021-10-07 2021-10-07 Outpatient R HENRIETTA SANTOS [facility] [id number] Univers 10:30:00 11:44:37 [facility] 2021-10-07 2021-10-07 [facility] 1.2.291.183 [id number] Univers 10:30:00 11:44:37 Visit Edis GUTIÉRREZ 350.1.13.10 i ty of [place] 4.2.7.2.686 [place] [id number] Ia dical NAL [address] [place] [address] 2021-10-07 2021-10-07 Telephone Henrietta Santos [facility] 1.2.840.114 [id number] Univers 00:00:00 00:00:00 Edis GUTIÉRREZ 350.1.13.10 i ty of [place] 4.2.7.2.686 [place] [phone] Ia dical NAL [address] [place] [address] 2021-10-07 2021-10-[address] [facility] 1.2.840.114 [id number] Univers 00:00:00 00:00:00 Secure Msg Rachel MARLA 350.1.13.10 ity of [place] 4.2.7.2.686 [place] [phone] Ia dical [address] 2021-10-06 2021-10-06 Outpatient R HENRIETTA SANTOS [facility] LARRY CAR OPERATOR [id number] Univers 06:17:00 10:43:00 ity of [facility] 2021-10-06 2021-10-06 Hospital [facility] 1.2.840.114 [id number] Univers 06:17:00 10:43:00 Encounter Edis GUTIÉRREZ 350.1.13.10 ity of [place] 4.2.7.2.686 [place] SURGICAL [id number] [address] 2021-10-06 2021-10-06 Outpatient R HENRIETTA SANTOS [facility] LARRY CAR OPERATOR [id number] Univers 06:17:00 10:43:00 ity of [facility] 2021-10-06 2021-10-06 Surgery [facility] 1.2.826.351 [id number] Univers 07:50:00 09:26:00 Edis GUTIÉRREZ 350.1.13.10 i ty of [place].2.7.2.686 [place] SURGICAL [id number] [facility] [address] 2021-10-06 2021-10-06 Anesthesia Yvno Garcia [facility] 1.2.840.11 [id number] Univers 07:53:00 09:11:00 Event Phill Louie 350.1.13.10 ity of [place] 4.2.7.2.686 [place] SURGICAL [id number] [facility] [address] 2021-10-05 2021-10-05 Ultrasound Spec Shira Hart Lab Main [facility] 1.2.8 40.114 [id number] Univers 14:00:00 14:15:00 Visit Tom Henriettacruzito GUTIÉRREZ 350.1.13.10 ity of [place] 4.2.7.2.[place] [id number] Ia dical [facility] [address] [facility] 2021-10-05 2021-10-05 Ultrasound Spec 1, Adc Lab [facility] 1.2.840.114 [id number] Univers 13:00:00 13:15:00 Visit Henrietta Santos 350.1.13.10 ity [facility] 4.2.7.2.686 [place] [id number] [facility] [address] 2021-10-05 2021-10-05 Outpatient R HENRIETTA SANTOS [facility] [id number] Univers 13:00:00 13:00:00 ity [facility] 2021-10-05 2021-10-05 Orders Doctor PHILL 1.2.840.114 [id number] Univers 00:00:00 00:00:00 Only Unassigned, PAIGE 350.1.13.10 ity of [facility] 4.2.7.2.686 [place] as [phone] [facility] [address] 2021-10-01 2021-10-01 Outpatient R CORNELL [facility] [id number] Univers 15:15:00 15:15:00 BHARGAV ity [facility] 2021-09-23 2021-09-23 Outpatient R [facility] [id number] Univers 14:00:00 14:00:00 ity [facility] 2021-09-23 2021-09-23 Outpatient R [facility] [id number] Univers 14:00:00 14:00:00 ity [facility] 2021-09-18 2021-09-18 [facility] [id number] Univers 08:00:00 08:00:00 BHARGAV ity [facility] 2021-09-15 2021-09-15 Outpatient R HENRIETTA SANTOS [facility] [id number] Univers 14:15:00 15:09:42 ity [facility] 2021-09-15 2021-09-15 Office Tom Henrietta [facility] 1.2.031.557 [id number] Univers 14:15:00 15:09:42 Visit Edis GUTIÉRREZ 350.1.13.10 i ty [facility] 4.2.7.2.[place] [phone] Me dical NAL 134 [facility] 2021-09-15 2021-09-15 Outpatient R HENRIETTA SANTOS [facility] [id number] Univers 14:15:00 14:15:00 ity [facility] 2021-09-02 2021-09-02 Imm/Inj Vaccine, [facility] Family Medicine [facility] 1.2.840.114 [id number] Univers 14:00:00 14:11:11 Visit Moe Marie 350.1.13 .10 ity of [place] 4.2.7.2.[place] [id number] Ia dical NAL 044 [facility] 2021-09-02 2021-09-02 Outpatient R FRANK [facility] [id number] Univers 14:00:00 14:00:00 MOE olivier [facility] 2021-08-27 2021-08-27 Outpatient R CORNELL [facility] [id number] Univers 15:15:00 15:15:[address] [facility] 2021-08-26 2021-08-26 Case [facility] 1..248.864 [id number] Univers 00:00:00 00:00:00 Management Edis GUTIÉRREZ 350.1.13.10 ity of [place] 4[place]2.7.2.[place] [id number] Ia dical NAL [address] [place] [address] 2021-08-24 2021-08-24 Outpatient R HENRIETTA SANTOS [facility] [id number] Univers 10:00:00 11:05:48 ity [facility] 2021-08-24 2021-08-24 Initial [facility] 1..072.664 [id number] Univers 10:00:00 11:05:48 Edis GUTIÉRREZ 350.1.13.10 ity of [facility] 4.2.7.2.[place] [id number] Ia dical NAL [address] [place] [address] 2021-08-24 2021-08-24 Orders Doctor POLLOCK 1.2.840.114 [id number] Univers 00:00:00 00:00:00 Only Unassigned, PAIGE 350.1.13.10 ity of [facility] 4.2.7.2.686 [place] as [phone] [address] 2021-08-10 2021-08-10 Outpatient R TAD [facility] [id number] Univers 13:06:58 23:59:00 LOKESH mata [facility] 2021-08-10 2021-08-10 Outpatient R TAD [facility] [id number] Univers 13:06:58 23:59:00 LOKESH mata [facility] 2021-08-10 2021-08-10 [facility] MishraRUST 1.2.840.114 [id number] Univers 13:06:58 23:59:00 Encounter Lokesh Loera SPECIALTY 350.1.13.10 ity of [place]2.[place].2.686 [place] CENTER AT [id number] Ia gilberto JANE 809 [facility] 2021-08-10 2021-08-10 Office TadRUST 1.2.840.114 [id number] Univers 13:50:00 13:50:00 Visit Lokesh Loera SPECIALTY 350.1.13.10 ity of [place] 4[place]2.[place].2.686 [place] CENTER AT [id number] Ia gilberto JANE 198 [facility] 2021-08-06 2021-08-[address] [facility] 1.2.840.114 [id number] Univers 00:00:00 00:00:00 Jocelyn Gray DIRECT SUPPORT PROFESSIONAL CAREGIVER 350.1.13.10 ity of [place] 4.2.7.2.686 [place] as MATERNAL [phone] Med ical & CHILD [address] [place] [address] 2021-07-31 2021-07-31 Outpatient R MONSTER [facility] [id number] Univers 13:15:00 13:33:04 HETAL mata [facility] 2021-07-31 2021-07-31 Nurse Meliza-Rmchp Nurse Vst, Fp Nrpt Pills [facility] 1.2.840.114 [id number] Univers 13:15:00 13:33:04 Visit Hetal Hook DIRECT SUPPORT PROFESSIONAL CAREGIVER 350.1.13.10 ity of [place] 4.2.7.2.686 [place] as MATERNAL [id number] [facility] ical & CHILD [address] [place] [address] 2021-07-31 2021-07-31 Outpatient Daivon HOOK [facility] [id number] Univers 13:15:00 13:15:00 HETAL esperanza [facility] 2021-07-30 2021-07-30 Outpatient Davion INFANTE [facility] [id number] Univers 16:20:00 16:20:00 PHILL esperanza [facility] 2021-07-30 2021-07-30 Office ArelisRUST 1.2.002.642 [id number] Univers 16:20:00 16:20:00 Visit Phill PRIMARY 350.1.13.10 it y of [place] 4[place]2.7.2.[place] [id number] Ia dicnm [address] 2021-07-30 2021-07-30 Office ArelisRUST 1.2.044.396 [id number] Univers 16:20:00 16:20:00 Visit Phill PRIMARY 350.1.13.10 it y of [place] 4.2.7.2.686 [place] [id number] Ia dicnm [address] 2021-07-30 2021-07-30 Outpatient Davion INFANTE [facility] [id number] Univers 16:20:00 16:07:54 PHILL mata [facility] 2021-07-24 2021-07-24 Outpatient Davion ERAZO [facility] [id number] Univers 17:20:00 17:20:00 ROSA deras [facility] 2021-07-16 2021-07-16 Outpatient Davion INFANTE [facility] [id number] Univers 15:00:00 15:00:00 PHILL mata [facility] 2021-05-26 2021-05-26 Outpatient Davion MARIE [facility] [id number] Univers 09:20:00 09:20:00 MOE mata [facility] 2021-05-26 2021-05-26 Outpatient Davion MARIE [facility] [id number] Univers 09:20:00 09:20:00 MOE mata [facility] 2021-05-25 2021-05-25 Outpatient R ELENA [facility] [id number] Univers 15:00:00 15:46:14 AMANDA ity o f [facility] 2021-05-25 2021-05-[address] [facility] 1.2.840.114 [id number] Univers 15:00:00 15:46:14 [facility] R DIRECT SUPPORT PROFESSIONAL CAREGIVER 350.1.13.10 ity of [facility] 4.2.7.2.686 [place] as MATERNAL [id number] [facility] [address] [place] [address] 2021-05-25 2021-05-25 Outpatient R ELENA [facility] [id number] Univers 15:00:00 15:00:00 AMANDA ity o f [facility] 2021-05-25 2021-05-25 Orders Doctor POLLOCK 1.2.840.114 [id number] Univers 00:00:00 00:00:00 Only Unassigned, PAIGE 350.1.13.10 ity of [facility] 4.2.7.2.686 Golden as [id number] [address] 2021-05-19 2021-05-19 Office Josey Koch [facility] 1.2.840.114 [id number] Univers 16:45:00 17:00:00 Visit [facility] 350.1.13.10 it y of [place]2.7.2.[place] GU[place] [id number] [address] OFFICE BUILDING 2021-05-19 2021-05-19 Outpatient R JOSEY KOCH [facility] [id number] Univers 16:45:00 16:45:00 ity of [facility] 2021-05-05 2021-05-05 Telephone ParkerRUST 1.2.602.465 [id number] Univers 00:00:00 00:00:00 [facility] Ricardo DIRECT SUPPORT PROFESSIONAL CAREGIVER 350.1.13.10 ity of [facility] 4.2.7.2.686 Golden as MATERNAL [id number] [facility] & CHILD [address] [place] [address] 2021-05-05 2021-05-05 Telephone ElenaRUST 1.2.873.892 [id number] Univers 00:00:00 00:00:00 Amanda R DIRECT SUPPORT PROFESSIONAL CAREGIVER 350.1.13.10 ity of [facility] 4.2.7.2.686 [place] as MATERNAL [id number] [facility] ical & CHILD [address] [place] [address] 2021-04-30 2021-04-30 Outpatient R ELENA [facility] [id number] Univers 15:30:00 16:02:20 AMANDA ity o f [facility] 2021-04-30 2021-04-30 [facility] 1.2.840.114 [id number] Univers 15:30:00 16:02:20 Visit Amanda R DIRECT SUPPORT PROFESSIONAL CAREGIVER 350.1.13.10 ity of [facility] 4.2.7.2.686 Golden as MATERNAL [id number] [facility] & [address] 2021-04-28 2021-04-28 Outpatient R JOSEY KOCH [facility] [id number] Univers 15:45:00 15:45:00 ity [facility] 2021-04-04 2021-04-04 [facility] [id number] Univers 08:43:04 23:59:00 PHILL mata [facility] 2021-04-04 2021-04-04 [facility] 1.2.840.114 [id number] Univers 08:43:04 23:59:00 Encounter Phill SPECIALTY 350.1.13.10 it[place] C[place] AT [id number] Ia gilberto JANE [address] [place] [address] 2021-04-04 2021-04-04 [facility] 1.2.840.114 [id number] Univers 08:42:06 08:42:06 Encounter Phill SPECIALTY 350.1.13.10 ity of [place] 4[place]2.7.2.686 [place] C[place] AT [id number] Ia gilberto JANE 803 [facility] 2021-03-20 2021-03-20 [facility] 1.2.840.114 [id number] Univers 00:00:00 00:00:00 Phill PRIMARY 350.1.13.10 it y of CARE 4.2.7.2.686 Shaun SORIA [id number] [address] 2021-03-05 2021-03-05 Outpatient R ARELIS [facility] [id number] Univers 15:40:00 15:40:00 PHILL mata [facility] 2021-02-26 2021-02-26 Outpatient Davion INFANTE [facility] [id number] Univers 15:30:00 15:30:00 PHILL mata [facility] 2021-02-19 2021-02-19 Outpatient R ARELIS [facility] [id number] Univers 15:50:00 15:50:00 PHILL mata [facility] 2021-01-20 2021-01-20 Outpatient Davion HOOK [facility] [id number] Univers 13:15:00 13:15:00 HETAL mata [facility] 2021-01-12 2021-01-12 Outpatient R CHRISTINA [facility] [id number] Univers 09:15:00 09:15:00 JOCELYN mata o f [facility] 2021-01-08 2021-01-08 Telephone [facility] 1.2.840.114 [id number] Univers 00:00:00 00:00:00 Jocelyn C DIRECT SUPPORT PROFESSIONAL CAREGIVER 350.1.13.10 ity of [facility] 4.2.7.2.686 Golden as MATERNAL [id number] [facility] [address] [place] [address] 2021-01-07 2021-01-07 Telephone [facility] 1.2.840.114 [id number] Univers 00:00:00 00:00:00 Jocelyn C DIRECT SUPPORT PROFESSIONAL CAREGIVER 350.1.13.10 ity of [facility] 4.2.7.2.686 Golden as MATERNAL [phone] [facility] CH[facility] [address] [place] [address] 2021-01-05 2021-01-05 [facility] [id number] Univers 13:58:32 14:20:28 Visit Jocelyn C DIRECT SUPPORT PROFESSIONAL CAREGIVER 350.1.13.10 ity of [facility] 4.2.7.2.686 Golden as MATERNAL [phone] [facility] CH[facility] [address] [place] [address] 2021-01-05 2021-01-05 Outpatient R CHRISTINA, [facility] [id number] Univers 13:45:00 13:45:00 JOCELYN mata o braeedn [facility] 2021-01-05 2021-01-05 Outpatient R RENAJIM, [facility] [id number] Univers 11:00:00 11:00:00 JOCELYN mata o braeden [facility] 2020-12-29 2020-12-29 [facility] [id number] Univers 08:45:08 09:15:08 Visit Jocelyn C DIRECT SUPPORT PROFESSIONAL CAREGIVER 350.1.13.10 ity of [facility] 4.2.7.2.686 Golden as MATERNAL [phone] [facility] & [address] 2020-12-29 2020-12-29 [facility] [id number] Univers 08:45:08 09:15:08 Visit [facility] C DIRECT SUPPORT PROFESSIONAL CAREGIVER 350.1.13.10 ity of [facility] 4.2.7.2.686 Golden as MATERNAL [phone] [facility] CH[facility] [address] [place] [address] 2020-12-29 2020-12-29 Outpatient R CHRISTINA, [facility] [id number] Univers 08:45:00 08:45:00 JOCELYN esperanza o [facility] 2020-12-29 2020-12-29 Orders Doctor POLLOCK [id number] [id number] Univers 00:00:00 00:00:00 Only Unassigned, PAIGE 350.1.13.10 ity of [facility] 4.2.7.2.686 Golden as [phone] [address] 2020-12-29 2020-12-29 Orders Doctor PHILL Hsu.2.840.114 [id number] Univers 00:00:00 00:00:00 Only Unassigned, PAIGE 350.1.13.10 ity of [facility] 4.2.7.2.686 Golden as [phone] [address] 2020-12-19 2020-12-19 Office Akinsipe, [facility] [id number] Univers 15:55:19 16:24:05 Visit Jocelyn C DIRECT SUPPORT PROFESSIONAL CAREGIVER 350.1.13.10 ity of [facility] 4.2.7.2.686 Golden as MATERNAL [phone] [facility] & CHILD [address] [place] [address] 2020-12-19 2020-12-19 Office [facility] 1.2.191.461 [id number] Univers 15:55:19 16:24:05 Visit Jocelyn C DIRECT SUPPORT PROFESSIONAL CAREGIVER 350.1.13.10 ity of REGIONAL 4.2.7.2.686 [place] as MATERNAL [phone] [address] 2020-12-19 2020-12-19 [facility] [id number] Univers 16:00:00 16:00:00 JOCELYN mata o [facility] 2020-12-09 2020-12-09 Outpatient R [facility] [id number] Univers 13:00:00 13:00:00 ity [facility] 2020-11-25 2020-11-25 Office [facility] 1.2.840.114 [id number] 11:48:14 12:04:05 Visit [facility] R DIRECT SUPPORT PROFESSIONAL CAREGIVER 350.1.13.10 REGIONAL 4.2.7.2.686 MATERNAL [phone] [address] 2020-11-25 2020-11-25 Office [facility] 1.2.840.114 [id number] Univers 11:48:14 12:04:05 Visit [facility] Carenda R DIRECT SUPPORT PROFESSIONAL CAREGIVER 350.1.13.10 ity of REGIONAL 4.2.7.2.686 Golden as MATERNAL [phone] [address] 2020-11-25 2020-11-25 [facility] [id number] Univers 12:00:00 12:00:00 RAGHUNDA ity o [facility] 2020-11-122020-11-12 Outpatient R CHRISTINA [facility] [id number] Univers 09:30:00 09:30:00 JOCELYN mata o f [facility] 2020-11-07 2020-11-07 Outpatient R CORNELL [facility] [id number] Univers 08:45:00 08:45:00 BHARGAV ity [facility] 2020-10-22 2020-10-22 Telephone ChristinaRUST 1.2.840.114 [id number] Univers 00:00:00 00:00:00 Jocelyn Gray DIRECT SUPPORT PROFESSIONAL CAREGIVER 350.1.13.10 ity [facility] 4.2.7.2.686 Golden as MATERNAL [phone] Med ical & CHILD [address] [place] [address] 2020-10-15 2020-10-15 Urgent Provider, [facility] Urgent Care [facility] 1.2.840.114 [id number] Univers 12:52:51 13:29:22 [facility] 4.2.7.2.686 Golden as Professio [phone] [address] Office Building One 2020-10-15 2020-10-15 [facility] [id number] Univers 13:00:00 13:00:00 [facility] 2020-10-13 2020-10-13 [facility] [id number] Univers 14:15:00 14:15:00 JOCELYN mata o f [facility] 2020-10-08 2020-10-08 Outpatient P [facility] [id number] Univers 13:00:00 13:00:00 ity [facility] 2020-10-06 2020-10-06 Outpatient R [facility] [id number] Univers 11:00:00 11:00:00 ity [facility] 2020-10-02 2020-10-02 Telephone ChristinaRUST 1.2.840.114 [id number] Univers 00:00:00 00:00:00 Jocelyn Gray DIRECT SUPPORT PROFESSIONAL CAREGIVER 350.1.13.10 ity of [facility] 4.2.7.2.686 Golden as MATERNAL [phone] [address] 2020-10-01 2020-10-01 Ultrasound Spec Lab, Ang-Rmchp [facility] 1.2.840. 114 [id number] Univers 10:23:48 10:38:48 Visit Jocelyn Vasquez DIRECT SUPPORT PROFESSIONAL CAREGIVER 350.1.13. 10 ity of [facility] 4.2.7.2.686 Golden as MATERNAL [id number] [facility] & CHILD [address] [place] [address] 2020-10-01 2020-10-01 Outpatient R [facility] [id number] Univers 10:30:00 10:30:00 ity [facility] 2020-09-30 2020-09-30 Office Josey Koch [facility] 1.2.840.114 [id number] Univers 13:53:34 14:08:[address] [facility] 350.1.13.10 it y of [place] 4.2.7.2.686 [place] [phone] [address] Office Building 2020-09-30 2020-09-30 Outpatient R JOSEY KOCH [facility] [id number] Univers 14:00:00 14:00:00 ity [facility] 2020-09-29 2020-09-[address] [facility] 1.2.636.797 [id number] Univers 12:48:08 13:43:12 Visit Jocelyn Gray DIRECT SUPPORT PROFESSIONAL CAREGIVER 350.1.13.10 ity of [facility] 4.2.7.2.686 Golden as MATERNAL [phone] [facility] CHILD [address] [place] [address] 2020-09-29 2020-09-29 Outpatient R CHRISTINA [facility] [id number] Univers 12:45:00 12:45:00 JOCELYN snyder [facility] 2020-09-23 2020-09-23 Outpatient R CHRISTINA [facility] [id number] Univers 09:00:00 09:00:00 JOCELYN snyder [facility] 2020-09-13 2020-09-13 Nurse China Fine 1.2.840.114 [id number] Univers 00:00:00 00:00:00 Triage PAIGE 350.1.13.10 it y of HOSPITAL 4.2.7.2.686 Golden as [phone] [address] 2020-09-12 2020-09-12 Telephone Josey Koch [facility] 1.2.840.114 [id number] Univers 00:00:00 00:00:00 Health 350.1.13.10 it y of [place] 4.2.7.2.686 [place] [phone] [address] Office Building 2020-09-03 2020-09-03 Outpatient R [facility] [id number] Univers 08:15:00 08:15:00 ity of [facility] 2020-09-01 2020-09-01 Outpatient R CHRISTINA [facility] [id number] Univers 07:45:00 07:45:00 JOCELYN mata o f [facility] 2020-08-28 2020-08-28 Telephone ChristinaRUST 1.2.840.114 [id number] Univers 00:00:00 00:00:00 Jocelyn C DIRECT SUPPORT PROFESSIONAL CAREGIVER 350.1.13.10 ity of REGIONAL 4.2.7.2.686 Golden as MATERNAL [phone] [facility] & [address] 2020-08-27 2020-08-27 Telephone ChristinaRUST 1.2.840.114 [id number] Univers 00:00:00 00:00:00 Jocelyn C DIRECT SUPPORT PROFESSIONAL CAREGIVER 350.1.13.10 ity of REGIONAL 4.2.7.2.686 Golden as MATERNAL [phone] [facility] & CHILD [address] [place] [address] 2020-08-26 2020-08-26 Initial ChristinaRUST 1.2.970.439 [id number] Univers 14:28:27 15:44:22 Jocelyn C DIRECT SUPPORT PROFESSIONAL CAREGIVER 350.1.13.10 ity of Visit REGIONAL 4.2.7.2.686 Golden as MATERNAL [phone] [facility] & CHILD [address] [place] [address] 2020-08-26 2020-08-26 Outpatient R CHRISTINA [facility] [id number] Univers 14:00:00 14:00:00 JOCELYN esperanza o [facility] 2020-08-26 2020-08-26 Orders Doctor PHILL 1.2.840.114 [id number] Univers 00:00:00 00:00:00 Only Unassigned, PAIGE 350.1.13.10 ity of [facility] 4.2.7.2.686 Golden as [id number] [address] 2020-07-22 2020-07-22 [facility] [id number] Univers 09:45:00 09:45:00 AMANDA mata o [facility] 2020-07-22 2020-07-22 Outpatient [facility] [id number] Univers 09:45:00 09:45:00 AMANDA mata o [facility] 2020-07-22 2020-07-22 Office ElenaRUST 1.2.840.114 [id number] Univers 09:25:38 09:43:35 Visit Lindanadir DIRECT SUPPORT PROFESSIONAL CAREGIVER 350.1.13.10 ity of [facility] 4.2.7.2.686 Golden as MATERNAL [phone] [facility] ical & CHILD [address] [place] [address] 2020-07-08 2020-07-08 Office ParkerRUST 1.2.840.114 [id number] Univers 14:20:22 14:44:34 Visit [facility] Carenadir DIRECT SUPPORT PROFESSIONAL CAREGIVER 350.1.13.10 ity of [facility] 4.2.7.2.686 Golden as MATERNAL [phone] [facility] ical & CHILD [address] [place] [address] 2020-07-08 2020-07-08 Outpatient [facility] [id number] Univers 14:15:00 14:15:00 AMANDA mata o [facility] 2020-07-08 2020-07-[address] [facility] 1.2.840.114 [id number] Univers 00:00:00 00:00:00 Outreach Moe [facility] 350.1.13.[address] [facility] 4.2.7.2.686 [place] [phone] Ia dical [address] 2020-06-10 2020-06-10 Outpatient R CHRISTINA [facility] [id number] Univers 09:30:00 09:30:00 JOCELYN deras [facility] 2020-05-21 2020-05-[address] [facility] 1.2.840.114 [id number] Univers 12:48:35 13:25:07 Visit Amanda Ricardo DIRECT SUPPORT PROFESSIONAL CAREGIVER 350.1.13.10 ity of [facility] 4.2.7.2.686 Golden as MATERNAL [phone] [facility] & CHILD [address] [place] [address] 2020-05-21 2020-05-21 Outpatient R ELENA [facility] [id number] Univers 12:45:00 12:45:00 AMANDA snyder [facility] 2020-05-21 2020-05-21 Orders Doctor POLLOCK 1.2.840.114 [id number] Univers 00:00:00 00:00:00 Only Unassigned, PAIGE 350.1.13.10 ity of [facility] 4.2.7.2.686 Golden as [id number] [address] 2020-03-18 2020-03-18 [facility] 1.2 .840.114 [id number] Univers 10:31:12 10:55:32 Visit ParkerAmanda DIRECT SUPPORT PROFESSIONAL CAREGIVER 350.1.13.10 ity of [facility] 4.2.7.2.686 Golden as MATERNAL [phone] [facility] & CHILD [address] [place] [address] 2020-03-18 2020-03-18 Outpatient R [facility] [id number] Univers 10:30:00 10:30:00 ity of [facility] 2020-03-18 2020-03-18 Outpatient [facility] [id number] Univers 10:30:00 10:30:00 AMANDA snyder [facility] 2020-03-10 2020-03-10 Telephone ChristinaRUST 1.2.840.114 [id number] Univers 00:00:00 00:00:00 Jocelyn Gray DIRECT SUPPORT PROFESSIONAL CAREGIVER 350.1.13.10 ity of [facility] 4.2.7.2.686 Golden as MATERNAL [id number] [facility] & [address] 2020-03-05 2020-03-05 Office RenajmiRUST 1.2.169.282 [id number] Univers 15:35:31 16:27:42 Visit [facility] DIRECT SUPPORT PROFESSIONAL CAREGIVER 350.1.13.10 ity of [facility] 42.7.2.686 Golden as MATERNAL [phone] [address] 2020-03-05 2020-03-05 [facility] [id number] Univers 15:30:00 15:30:00 JOCELYN snyder [facility] 2020-03-05 2020-03-05 [facility] [id number] Univers 15:30:00 15:30:00 JOCELYN snyder [facility] 2020-02-26 2020-02-26 Orders Doctor POLLOCK 1.2.840.114 [id number] Univers 00:00:00 00:00:00 Only Unassigned, PAIGE 350.1.13.10 ity of [facility] 42.7.2.686 Golden as [id number] [address] 2020 2020 Outpatient R ARELIS, [facility] [id number] Univers 10:30:00 10:30:00 PHILL mata [facility] 2020-02-08 2020-02-08 Office [facility] 1.2.078.659 [id number] Univers 14:38:38 15:30:42 Visit [facility] DIRECT SUPPORT PROFESSIONAL CAREGIVER 350.1.13.10 ity of [facility] 4.2.7.2.686 Golden as MATERNAL [phone] [address] 2020-02-08 2020-02-08 Outpatient [facility] [id number] Univers 14:45:00 14:45:00 JOCELYN deras [facility] 2020-01-30 2020-01-30 Orders Doctor POLLOCK 1.2.840.114 [id number] Univers 00:00:00 00:00:00 Only Unassigned, PAIGE 350.1.13.10 ity of [facility] 4.2.7.2.686 Golden as [phone] [address] 2020-01-24 2020-01-24 Outpatient R ARELIS [facility] [id number] Univers 08:40:00 08:40:00 PHILL ity of [facility] 2020-01-23 2020-01-23 Abstract LebronRUST 1.2.840.114 [id number] Univers 00:00:00 00:00:00 Tony PRIMARY 350.1.13.10 it y of [facility] 4.2.7.2.686 [place] [phone] [address] 2020-01-23 2020-01-23 [facility] 1.2.915.054 [id number] Univers 00:00:00 00:00:00 Lindanda R DIRECT SUPPORT PROFESSIONAL CAREGIVER 350.1.13.10 ity of [facility] 4.2.7.2.686 Golden as MATERNAL [phone] Med ical & CHILD [address] [place] [address] 2020-01-21 2020-01-21 [facility] 1.2.840.114 [id number] Univers 08:32:46 09:29:11 Visit Raghunadir R DIRECT SUPPORT PROFESSIONAL CAREGIVER 350.1.13.10 ity of [facility] 4.2.7.2.686 Golden as MATERNAL [phone] [facility] & CHILD [address] [place] [address] 2020-01-21 2020-01-21 Outpatient R ELENA [facility] [id number] Univers 08:30:00 08:30:00 ROSHUNDA ity o f [facility] 2019-12-27 2020-01-15 [facility] 1.2.309.057 [id number] Univers 14:49:24 22:41:22 Visit Phill PRIMARY 350.1.13.10 it y of CARE 4[place]2.7.2.686 [place] [phone] [facility] [address] 2019-12-31 2019-12-31 Telephone ChristinaRUST 1.2.840.114 [id number] Univers 00:00:00 00:00:00 Jocelyn C DIRECT SUPPORT PROFESSIONAL CAREGIVER 350.1.13.10 ity of REGIONAL 4.2.7.2.686 Golden as MATERNAL [phone] [facility] & [address] 2019-12-28 2019-12-28 Office [facility] 1.2.315.893 [id number] Univers 15:18:44 15:56:31 Visit Jocelyn C DIRECT SUPPORT PROFESSIONAL CAREGIVER 350.1.13.10 ity of REGIONAL 4.2.7.2.686 Golden as MATERNAL [phone] [address] 2019-12-28 2019-12-28 Outpatient R [facility] [id number] Univers 15:30:00 15:30:00 JOCELYN ity o f [facility] 2019-12-27 2019-12-27 [facility] 1.2.840.114 [id number] Univers 14:56:29 23:59:00 Encounter Phill PRIMARY 350.1.13.10 ity of CARE 4[place].2.[place] [phone] [facility] [address] 2019-12-27 2019-12-27 Outpatient R [facility] [id number] Univers 14:50:00 14:50:00 PHILL ity of [facility] 2019-12-26 2019-12-26 [facility] 1.2.617.214 [id number] Univers 00:00:00 00:00:00 Jim PRIMARY 350.1.13.10 it y of [facility] 4.2.7.2.686 [place] [phone] Ia dicnm [address] 2019-12-25 2019-12-25 Nurse Visit, Dick-Rmchp Nurse [facility] 1.2 .840.114 [id number] Univers 13:07:45 13:30:36 Visit Amanda Parker DIRECT SUPPORT PROFESSIONAL CAREGIVER 350.1.13.10 ity of [facility] 4.2.7.2.686 Golden as MATERNAL [phone] [facility] & CHILD [address] [place] [address] 2019-12-25 2019-12-25 Outpatient R ELENA [facility] [id number] Univers 13:00:00 13:00:00 AMANDA ity o f [facility] 2019-12-10 2019-12-10 Outpatient R JOSEY KOCH [facility] [id number] Univers 09:30:00 09:30:00 ity of [facility] 2019-10-02 2019-10-02 Nurse Visit, Wendie Nurse [facility] 1.2 .840.114 [id number] Univers 12:50:26 13:05:26 Visit Linda Parkeralivia Ricardo DIRECT SUPPORT PROFESSIONAL CAREGIVER 350.1.13.10 ity of [facility] 4.2.7.2.686 Golden as MATERNAL [phone] Med ical & CHILD [address] [place] [address] 2019-10-02 2019-10-02 Outpatient R [facility] [id number] Univers 13:00:00 13:00:00 ity of [facility] 2019-10-01 2019-10-01 Outpatient R [facility] [id number] Univers 13:00:00 13:00:00 ity of [facility] 2019-10-01 2019-10-01 Telephone ChristinaRUST 1.2.840.114 [id number] Univers 00:00:00 00:00:00 Jocelyn Gray DIRECT SUPPORT PROFESSIONAL CAREGIVER 350.1.13.10 ity of [facility] 4.2.7.2.686 Golden as MATERNAL [phone] Med ical & CHILD [address] [place] [address] 2019-08-21 2019-08-21 Orders Doctor POLLOCK 1.2.840.114 [id number] Univers 00:00:00 00:00:00 Only Unassigned, PAIGE 350.1.13.10 ity of [facility] 4.2.7.2.686 Golden as [phone] [address] 2019-07-09 2019-07-09 [facility] 1.2 .840.114 [id number] Univers 13:42:44 13:57:44 Visit Linda Parkeralivia Ricardo DIRECT SUPPORT PROFESSIONAL CAREGIVER 350.1.13.10 ity of [facility] 4.2.7.2.686 Golden as MATERNAL [phone] Med ical & CHILD [address] [facility] 2019-07-09 2019-07-09 Outpatient R [facility] [id number] Univers 13:30:00 13:30:00 ity [facility] 2019-07-05 2019-07-05 Outpatient R ARELIS [facility] [id number] Univers 09:50:00 09:50:00 PHILL ity [facility] 2019-06-11 2019-06-11 Office Josey Koch [facility] 1.2.840.114 [id number] Univers 09:45:09 10:00:09 Visit Health 350.1.13.10 it y of [place].2.[place] [phone] [address] Office Building 2019-06-11 2019-06-11 Outpatient R JOSEY KOCH [facility] [id number] Univers 10:00:00 10:00:00 ity [facility] 2019-05-08 2019-05-09 Office Josey Koch [facility] 1.2.840.114 [id number] Univers 13:07:45 11:20:43 Visit Health 350.1.13.10 it y of [place]2.7.2.686 [place] [phone] [address] Office Building 2019-05-03 2019-05-05 Hospital Josey Koch 1.2.840.114 [id number] Univers 08:27:00 13:50:00 Encounter [place] 350.1.13.10 ity of Hospital 4.2.7.2.686 Golden as [id number] [address] 2019-04-27 2019-04-27 Telephone Josey Koch [facility] 1.2.840.114 [id number] Univers 00:00:00 00:00:00 Health 350.1.13.10 it y of [place] 4.2.7.2.686 [place] - [id number] [address] 2019-03-26 2019-03-26 Outpatient Davion DINERO [facility] [id number] Univers 10:39:20 23:59:00 NATA ity [facility] 2019-03-26 2019-03-26 Outpatient Davion DINERO [facility] [id number] Univers 10:39:20 23:59:00 NATA mata [facility] 2019-03-23 2019-03-23 Outpatient [facility] [id number] Univers 00:00:00 00:00:00 NATA mata [facility] 2018-12-25 2019-01-02 Routine ElenaRUST 1.2.840.114 [id number] Univers 08:15:33 13:00:13 Roshunda R DIRECT SUPPORT PROFESSIONAL CAREGIVER 350.1.13.10 ity of Visit [facility] 4.2.7.2.686 Golden as MATERNAL [phone] [facility] ical & CHILD [address] [place] [address] 2018-12-25 2018-12-25 Outpatient [facility] [id number] Univers 08:00:00 09:13:28 RAGHUNDA ity o f [facility] 2018-12-21 2018-12-21 Routine ParkerRUST 1.2.840.114 [id number] Univers 08:15:00 08:30:00 Roshunda R DIRECT SUPPORT PROFESSIONAL CAREGIVER 350.1.13.10 ity of Visit [facility] 4.2.7.2.686 Golden as MATERNAL [phone] [facility] ica & [address] 2018-12-21 2018-12-21 Outpatient Davion PARKER [facility] [id number] Univers 08:15:00 08:15:00 LINDAMELISSANDA ity o f [facility] 2018-12-02 2018-12-04 [facility] PHILL [place] 1.2.840.114 [id number] Univers 00:16:00 15:06:00 Encounter Erika GIBSON 350.1.13.10 ity of [facility] 4.2.7.2.686 [place] [phone] [address] 2018-11-30 2018-11-30 Routine MonsterRUST 1.2.556.354 [id number] Univers 08:54:52 09:13:01 Hetal N DIRECT SUPPORT PROFESSIONAL CAREGIVER 350.1.13.10 i ty of Visit [facility] 4.2.7.2.686 Golden as MATERNAL [phone] [facility] ical & CHILD [address] [place] [address] 2018-11-23 2018-11-23 [facility] 1.2.944.237 [id number] Univers 08:17:01 08:54:22 Jocelyn C DIRECT SUPPORT PROFESSIONAL CAREGIVER 350.1.13.10 ity of Visit REGIONAL 4.2.7.2.686 Golden as MATERNAL [phone] [address] 2018-11-16 2018-11-20 Office ArelisRUST 1.2.511.669 [id number] Univers 10:35:57 11:06:37 Visit Phill VITALE 350.1.13.10 it y of CARE 4[place]2.7.2.[place] [id number] Ia dic[address] 2018-11-16 2018-11-16 [facility] 1.2.280.275 [id number] Univers 15:15:19 15:55:04 Jocelyn C DIRECT SUPPORT PROFESSIONAL CAREGIVER 350.1.13.10 ity of Visit REGIONAL 4.2.7.2.686 Golden as MATERNAL [id number] [facility] & CHILD [address] [place] [address] 2018-11-14 2018-11-14 Abstract PraveenRUST 1.2.621.465 [id number] Univers 00:00:00 00:00:00 Peter Phill [facility] 350.1.13.10 ity of CARE [place]2.[place] [id number] [address] Results Test Description Test Time Test Comments Results Result Comments Source POCT URINALYSIS W SPECIFIC GRAVITY 2022-10-27 15:54:00 Test Item Value Reference Range Interpretation Comme nts POCT U SP GRAV (test code = 3255) 1.010 mg/dl 1.005-1.025 POCT PH U (test code = 3254) 6 mg/dl 5-8 POCT U LEUK EST (test code = 3263) 2+ Negative - Negative POCT U NIT (test code = 3262) negative Negative - Negative POCT U PROT (test code = 3259) 2+ Negative - Negative POCT U GLU (test code = 3256) negative Negative - Negative POCT U KETONE (test code = 3258) negative Negative - Negative POCT U UROBILI (test code = 3260) 0.2 mg/dl 0.2-1 POCT U BILI (test code = 3261) Negative Negative - Negative POCT U BLD (test code = 3257) about 250 Negative - Negative POCT U COLOR (test code = 3266) yellow POCT U APPEAR (test code = 3267) [facility] SPECIFIC [id number] 15:54:00 Test Item Value Reference Range Interpretation Comments POCT U SP GRAV (test code = 1.010 mg/dl 1.005-1.025 3255) POCT PH U (test code = 3254) 6 mg/dl 5-8 POCT U LEUK EST (test code = 2+ Negative - Negative 3263) POCT U NIT (test code = 3262) negative Negative - Negative POCT U PROT (test code = 2+ Negative - Negative 3259) POCT U GLU (test code = 3256) negative Negative - Negative POCT U KETONE (test code = negative Negative - Negative 3258) POCT U UROBILI (test code = 0.2 mg/dl 0.2-1 3260) POCT U BILI (test code = Negative Negative - Negative 3261) POCT U BLD (test code = 3257) about 250 Negative - Negative POCT U COLOR (test code = yellow 3266) POCT U APPEAR (test code = 3267) [facility] (NA, K, CL, CO2, GLUCOSE, BUN, CREATININE, CA)2022-10-14 05:53:23 Test Item Value Reference Range Interpretation Comments NA (test code = 136 mmol/L 135-145 7409634491) K (test code = 3.5 mmol/L 3.5-5.0 Slight 3961506946) hemolysis CL (test code = 106 mmol/L 98-108 8916755050) CO2 TOTAL (test code 21 mmol/L 23-31 L = 8706539387) AGAP (test code = 9 2-16 2044876104) BUN (test code = 7 mg/dL 7-23 Slight 0940241288) hemolysis GLUCOSE (test code = 85 mg/dL 70-110 5920232180) CREATININE (test code 0.40 mg/dL 0.50-1.04 L = 8963290757) CALCIUM (test code = 8.2 mg/dL 8.6-10.6 L 5894987490) eGFR (test code = 196.1 mL/min/1.73m2 1624923815) BAN (test code = BAN) Association of Glomerular Filtration Rate (GFR) and Staging of Kidney Disease* + -----+ --------+ +| GFR (mL/min/1.73 m2) ?| With Kidney Damage ?| ?Without Kidney Damage+ +------- +---- --+| ?>90 ?| ?Stage one ?| ? Normal ?+ ------+ ---------+--------- +| ?60-89 ?| ?Stage two ?| ? Decreased GFR ? + -----+ --------+ +| ?30-59 ?| ?Stage three ?| ? Stage three ? + -----+ --------+ +| ?15-29 ?| ?Stage four ? | ? Stage four ?+ ------+ ---------+--------- +| ?<15 (or dialysis) ? ?| ?Stage five ? | ? Stage five ?+ ------+ ---------+--------- + *Each stage assumes the associated GFR level [...] tests). Lab Interpretation Abnormal (test code = 28512-1) [facility] Test Item Value Reference Range Interpretation Comments MAGNESIUM (test code = 2061004644) 1.8 mg/dL 1.7-2.4 Lab Interpretation (test code = Normal 10653-4) [facility] WITH [id number] 05:28:57 Test Item Value Reference Range Interpretation Comments WBC (test code = 6.36 See_Comment [Automated 7590-2) message] The sy stem which generated this result transmitted reference range : 4.30 - 11.10 10*3/?L. The reference range was not used to interpret this result as normal/abnormal . RBC (test code = 3.94 See_Comment [Automated 789-8) message] The sy stem which generated this result transmitted reference range : 3.93 - 5.25 10*6/?L. The reference range was not used to interpret this result as normal/abnormal . HGB (test code = 12.5 g/dL 11.6-15.0 718-7) HCT (test code = 35.2 % 35.7-45.2 L 4544-3) MCV (test code = 89.3 fL 80.6-95.5 787-2) MCH (test code = 31.7 pg 25.9-32.8 785-6) MCHC (test code = 35.5 g/dL 31.6-35.1 H 786-4) RDW-SD (test code = 38.4 fL 39.0-49.9 L 60900-0) RDW-CV (test code = 11.8 % 12.0-15.5 L 788-0) PLT (test code = 318 See_Comment [Automated 777-3) message] The sy stem which generated this result transmitted reference range : 166 - 358 10*3/ ?L. The reference r amy was not used to interpret this result as normal/abnormal . MPV (test code = 9.2 fL 9.5-12.9 L 72599-0) NRBC/100 WBC (test 0.0 See_Comment [Automat ed code = 2131585908) message] The system which generated this result transmitted reference range : 0.0 - 10.0 /100 WBCs. The refer ence range was not u sed to interpret th is result as normal/abnormal . NRBC x10^3 (test code See_Comment [Auto mated = 7134533368) message] The s ystem which generated this result transmitted reference range : 10*3/?L. The reference range was not used to interpret this result as normal/abnormal . GRAN MAT (NEUT) % 65.0 % (test code = 770-8) IMM GRAN % (test code 0.20 % = 1875809401) LYMPH % (test code = 26.4 % 736-9) MONO % (test code = 6.4 % 5905-5) EOS % (test code = 1.7 % 713-8) BASO % (test code = 0.3 % 706-2) GRAN MAT x10^3(ANC) 4.13 10*3/uL 1.88-7.09 (test code = 1701663591) IMM GRAN x10^3 (test 0.00-0.06 code = 3420904354) LYMPH x10^3 (test code 1.68 10*3/uL 1.32-3.29 = 731-0) MONO x10^3 (test code 0.41 10*3/uL 0.33-0.92 = 742-7) EOS x10^3 (test code = 0.11 10*3/uL 0.03-0.39 711-2) BASO x10^3 (test code 0.01-0.07 = 704-7) Lab Interpretation Abnormal (test code = 80377-2) [facility] METABOLIC PANEL (NA, K, CL, CO2, GLUCOSE, BUN, CREATININE, CA)2022-10-13 12:15:43 Test Item Value Reference Range Interpretation Comments NA (test code = 134 mmol/L 135-145 L 0848937601) K (test code = 3.6 mmol/L 3.5-5.0 1317066402) CL (test code = 106 mmol/L 98-108 4386954880) CO2 TOTAL (test code = 21 mmol/L 23-31 L 4224543821) AGAP (test code = 7 2-16 1824991527) BUN (test code = 7 mg/dL 7-23 0900851886) GLUCOSE (test code = 111 mg/dL 70-110 H 3548856258) CREATININE (test code = 0.42 mg/dL 0.50-1.04 L 9248678652) CALCIUM (test code = 8.2 mg/dL 8.6-10.6 L 4995781101) eGFR (test code = 185.4 mL/min/1.73m2 6775984982) BAN (test code = BAN) Association of [...] tests). Lab Interpretation Abnormal (test code = 19904-4) [facility] WITH [id number] 11:51:57 Test Item Value Reference Range Interpretation Comments WBC (test code = 5.74 See_Comment [Automated 4890-2) message] The sy stem which generated this result transmitted reference range : 4.30 - 11.10 10*3/?L. The reference range was not used to interpret this result as normal/abnormal . RBC (test code = 3.97 See_Comment [Automated 709-8) message] The sy stem which generated this result transmitted reference range : 3.93 - 5.25 10*6/?L. The reference range was not used to interpret this result as normal/abnormal . HGB (test code = 12.6 g/dL 11.6-15.0 718-7) HCT (test code = 35.7 % 35.7-45.2 4544-3) MCV (test code = 89.9 fL 80.6-95.5 787-2) MCH (test code = 31.7 pg 25.9-32.8 785-6) MCHC (test code = 35.3 g/dL 31.6-35.1 H 786-4) RDW-SD (test code = 39.8 fL 39.0-49.9 00031-3) RDW-CV (test code = 12.0 % 12.0-15.5 788-0) PLT (test code = 291 See_Comment [Automated 777-3) message] The sy stem which generated this result transmitted reference range : 166 - 358 10*3/ ?L. The reference r amy was not used to interpret this result as normal/abnormal . MPV (test code = 9.0 fL 9.5-12.9 L 05601-8) NRBC/100 WBC (test 0.0 See_Comment [Automat ed code = 6194581763) message] The system which generated this result transmitted reference range : 0.0 - 10.0 /100 WBCs. The refer ence range was not u sed to interpret th is result as normal/abnormal . NRBC x10^3 (test code See_Comment [Auto mated = 2961039156) message] The s ystem which generated this result transmitted reference range : 10*3/?L. The reference range was not used to interpret this result as normal/abnormal . GRAN MAT (NEUT) % 61.5 % (test code = 770-8) IMM GRAN % (test code 0.30 % = 8343587175) LYMPH % (test code = 28.2 % 736-9) MONO % (test code = 8.2 % 5905-5) EOS % (test code = 1.6 % 713-8) BASO % (test code = 0.2 % 706-2) GRAN MAT x10^3(ANC) 3.53 10*3/uL 1.88-7.09 (test code = 0271765942) IMM GRAN x10^3 (test 0.00-0.06 code = 0401184620) LYMPH x10^3 (test code 1.62 10*3/uL 1.32-3.29 = 731-0) MONO x10^3 (test code 0.47 10*3/uL 0.33-0.92 = 742-7) EOS x10^3 (test code = 0.09 10*3/uL 0.03-0.39 711-2) BASO x10^3 (test code 0.01-0.07 = 704-7) Lab Interpretation Abnormal (test code = 74887-1) [facility] METABOLIC PANEL (NA, K, CL, CO2, GLUCOSE, BUN, CREATININE, CA)2022-10-12 21:00:50 Test Item Value Reference Range Interpretation Comments NA (test code = 137 mmol/L 135-145 1771437286) K (test code = 3.8 mmol/L 3.5-5.0 7323836142) CL (test code = 102 mmol/L 98-108 1207256649) CO2 TOTAL (test code = 26 mmol/L 23-31 3175314381) AGAP (test code = 9 2-16 8843905181) BUN (test code = 8 mg/dL 7-23 8842466112) GLUCOSE (test code = 115 mg/dL 70-110 H 3182635533) CREATININE (test code = 0.47 mg/dL 0.50-1.04 L 9690186008) CALCIUM (test code = 8.5 mg/dL 8.6-10.6 L 1024191342) eGFR (test code = 162.8 mL/min/1.73m2 4579527514) BAN (test code = BAN) Association of [...] tests). Lab Interpretation Abnormal (test code = 72988-6) [facility] WITH [id number] 20:43:49 Test Item Value Reference Range Interpretation Comments WBC (test code = 8.90 See_Comment [Automated 9236-2) message] The sy stem which generated this result transmitted reference range : 4.30 - 11.10 10*3/?L. The reference range was not used to interpret this result as normal/abnormal . RBC (test code = 4.47 See_Comment [Automated 659-8) message] The sy stem which generated this result transmitted reference range : 3.93 - 5.25 10*6/?L. The reference range was not used to interpret this result as normal/abnormal . HGB (test code = 13.9 g/dL 11.6-15.0 718-7) HCT (test code = 40.5 % 35.7-45.2 4544-3) MCV (test code = 90.6 fL 80.6-95.5 787-2) MCH (test code = 31.1 pg 25.9-32.8 785-6) MCHC (test code = 34.3 g/dL 31.6-35.1 786-4) RDW-SD (test code = 40.1 fL 39.0-49.9 19586-1) RDW-CV (test code = 12.1 % 12.0-15.5 788-0) PLT (test code = 359 See_Comment H [Automated 597-3) message] The sy stem which generated this result transmitted reference range : 166 - 358 10*3/ ?L. The reference r amy was not used to interpret this result as normal/abnormal . MPV (test code = 9.0 fL 9.5-12.9 L 12641-3) NRBC/100 WBC (test 0.0 See_Comment [Automat ed code = 5221038830) message] The system which generated this result transmitted reference range : 0.0 - 10.0 /100 WBCs. The refer ence range was not u sed to interpret th is result as normal/abnormal . NRBC x10^3 (test code See_Comment [Auto mated = 0513024203) message] The s ystem which generated this result transmitted reference range : 10*3/?L. The reference range was not used to interpret this result as normal/abnormal . GRAN MAT (NEUT) % 82.5 % (test code = 770-8) IMM GRAN % (test code 0.20 % = 7427518180) LYMPH % (test code = 11.7 % 736-9) MONO % (test code = 5.3 % 5905-5) EOS % (test code = 0.1 % 713-8) BASO % (test code = 0.2 % 706-2) GRAN MAT x10^3(ANC) 7.34 10*3/uL 1.88-7.09 H (test code = 5010947386) IMM GRAN x10^3 (test 0.00-0.06 code = 7672008211) LYMPH x10^3 (test code 1.04 10*3/uL 1.32-3.29 L = 731-0) MONO x10^3 (test code 0.47 10*3/uL 0.33-0.92 = 742-7) EOS x10^3 (test code = 0.03-0.39 L 711-2) BASO x10^3 (test code 0.01-0.07 = 704-7) Lab Interpretation Abnormal (test code = 78325-3) [facility] URINALYSIS W/O SPECIFIC [id number] 21:51:00 Test Item Value Reference Range Interpretation [...] code = 3257) 250 Negative - [facility] [id number] 21:51:00 Test Item Value Reference Range Interpretation [...] code = 3257) 250 Negative - Negative [facility] [id number] 21:51:00 Test Item Value Reference Range Interpretation [...] code = 3257) 250 Negative - [facility] [id number] 21:51:00 Test Item Value Reference Range Interpretation [...] code = 3257) 250 Negative - Negative [facility]. METABOLIC PANEL (25577)2022-06-22 20:03:18 Test Item Value Reference Range Interpretation Comments NA (test code = 136 mmol/L 135-145 7721031293) K (test code = 4.1 mmol/L 3.5-5.0 4234282354) CL (test code = 104 mmol/L 98-108 4930281077) CO2 TOTAL (test code = 24 mmol/L 23-31 3861297457) AGAP (test code = 8 2-16 7576619121) BUN (test code = 11 mg/dL 7-23 9266986848) GLUCOSE (test code = 96 mg/dL 70-110 2740025280) CREATININE (test code = 0.47 mg/dL 0.50-1.04 L 9435604116) TOTAL BILI (test code = 0.6 mg/dL 0.1-1.5 8716898830) CALCIUM (test code = 8.7 mg/dL 8.6-10.6 5718622073) T PROTEIN (test code = 7.2 g/dL 6.3-8.2 6117044279) ALBUMIN (test code = 4.4 g/dL 3.5-5.0 9772662808) ALK PHOS (test code = 77 U/L 34-122 5070419838) ALTv (test code = 14 U/L 5-35 1742-6) AST(SGOT) (test code = 18 U/L 13-40 0395536555) eGFR (test code = 162.8 mL/min/1.73m2 5092213670) BAN (test code = BAN) Association of [...] tests). Lab Interpretation Abnormal (test code = 96739-3) [facility] 20:03:18 Test Item Value Reference Range Interpretation Comments LIPASE (test code = 1530538289) 56 U/L 0-220 Lab Interpretation (test code = Normal 53049-7) [facility] WITH [id number] 19:45:15 Test Item Value Reference Range Interpretation Comments WBC (test code = 7.23 See_Comment [Automated 0290-2) message] The sy stem which generated this result transmitted reference range : 4.30 - 11.10 10*3/?L. The reference range was not used to interpret this result as normal/abnormal . RBC (test code = 4.53 See_Comment [Automated 944-8) message] The sy stem which generated this [...] (test code = 38.4 fL 39.0-49.9 L 73183-3) RDW-CV (test code = 11.6 % 12.0-15.5 L 788-0) PLT (test code = 339 See_Comment [Automated 777-3) message] The sy stem which generated this result transmitted reference range : 166 - 358 10*3/ ?L. The reference r amy was not used to interpret this result as normal/abnormal . MPV (test code = 9.4 fL 9.5-12.9 L 58936-9) NRBC/100 WBC (test 0.0 See_Comment [Automat ed code = 8295803923) message] The system which generated this result transmitted reference range : 0.0 - 10.0 /100 WBCs. The refer ence range was not u sed to interpret th is result as normal/abnormal . NRBC x10^3 (test code See_Comment [Auto mated = 2624385897) message] The s ystem which generated this result transmitted reference range : 10*3/?L. The reference range was not used to interpret this result as normal/abnormal . GRAN MAT (NEUT) % 68.6 % (test code = 770-8) IMM GRAN % (test code 0.10 % = 0173195011) LYMPH % (test code = 23.2 % 736-9) MONO % (test code = 5.8 % 5905-5) EOS % (test code = 1.9 % 713-8) BASO % (test code = 0.4 % 706-2) GRAN MAT x10^3(ANC) 4.95 10*3/uL 1.88-7.09 (test code = 7597069759) IMM GRAN x10^3 (test 0.00-0.06 code = 6442629704) LYMPH x10^3 (test code 1.68 10*3/uL 1.32-3.29 = 731-0) MONO x10^3 (test code 0.42 10*3/uL 0.33-0.92 = 742-7) EOS x10^3 (test code = 0.14 10*3/uL 0.03-0.39 711-2) BASO x10^3 (test code 0.03 10*3/uL 0.01-0.07 = 704-7) Lab Interpretation Abnormal (test code = 82206-1) [facility] [id number] 19:37:28 Test Item Value Reference Range Interpretation Comments LACTIC ACID (test code = 1.10 mmol/L 0.50-2.20 2608743084) Lab Interpretation (test code = Normal 95938-8) [facility] [id number] 19:20:00 Test Item Value Reference Range Interpretation Comments POCT PREG TEST DATE (test 33110522 code = 3576) POCT PREG LOT # (test code = 3575) [id number] On board controls acceptable with C present Line (test code = 3574) POCT PREG (test code = 1605) negative Lab Interpretation (test code = Normal 58808-2) [facility] URINALYSIS W/O SPECIFIC [id number] 22:35:00 Test Item Value Reference Range Interpretation [...] code = 3257) neg Negative - Negative [facility] URINALYSIS W/O SPECIFIC [id number] 22:35:00 Test Item Value Reference Range Interpretation [...] code = 3257) neg Negative - Negative [facility] [id number] 20:03:00 Test Item Value Reference Range Interpretation Comments POCT PREG (test code = Negative 1605) On board controls Yes acceptable with C Line (test code = 3574) POCT PREG LOT # (test code = 3575) POCT PREG TEST DATE (test code = 3576) BAN (test code = BAN) accurate development and interpretation of all internal controls Lab Interpretation Normal (test code = 30705-4) [facility] [id number] 20:03:00 Test Item Value Reference Range Interpretation Comments POCT PREG (test code = Negative 1605) On board controls Yes acceptable with C Line (test code = 3574) POCT PREG LOT # (test code = 3575) POCT PREG TEST DATE (test code = 3576) BAN (test code = BAN) accurate development and interpretation of all internal controls Lab Interpretation Normal (test code = 27579-8) [facility] [id number] 20:03:00 Test Item Value Reference Range Interpretation Comments POCT PREG (test code = Negative 1605) On board controls Yes acceptable with C Line (test code = 3574) POCT PREG LOT # (test code = 3575) POCT PREG TEST DATE (test code = 3576) BAN (test code = BAN) accurate development and interpretation of all internal controls Lab Interpretation Normal (test code = 23236-5) [facility] [id number] 20:03:00 Test Item Value Reference Range Interpretation Comments POCT PREG (test code = Negative 1605) On board controls Yes acceptable with C Line (test code = 3574) POCT PREG LOT # (test code = 3575) POCT PREG TEST DATE (test code = 3576) BAN (test code = BAN) accurate development and interpretation of all internal controls Lab Interpretation Normal (test code = 50674-5) [facility] URINALYSIS W SPECIFIC [id number] 19:03:00 Test Item Value Reference Range Interpretation [...] controls Lab Interpretation Abnormal (test code = 94123-3) [facility] URINALYSIS W SPECIFIC [id number] 19:03:00 Test Item Value Reference Range Interpretation [...] controls Lab Interpretation Abnormal (test code = 03392-3) [facility] URINALYSIS W SPECIFIC [id number] 19:03:00 Test Item Value Reference Range Interpretation [...] controls Lab Interpretation Abnormal (test code = 46766-4) [facility] URINALYSIS W SPECIFIC [id number] 19:03:00 Test Item Value Reference Range Interpretation [...] controls Lab Interpretation Abnormal (test code = 12824-6) [facility] URINALYSIS W SPECIFIC [id number] 22:54:00 Test Item Value Reference Range Interpretation [...] controls Lab Interpretation Abnormal (test code = 29358-3) [facility] URINALYSIS W SPECIFIC [id number] 22:54:00 Test Item Value Reference Range Interpretation [...] controls Lab Interpretation Abnormal (test code = 84403-0) [facility] URINALYSIS W SPECIFIC [id number] 22:54:00 Test Item Value Reference Range Interpretation [...] controls Lab Interpretation Abnormal (test code = 70774-0) [facility]"
[2022-12-13 18:30] LABS: Urine Bacteria None Seen /HPF (<20); Urine Crystals Unidentified Few /HPF (None Seen); Urine Mucus Slight /HPF (None Seen); Urine WBC Clump Few /HPF (None Seen)
[2022-12-13 18:35] LABS: Specific Gravity 1.019 (1.005-1.030)
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
[2022-12-13 21:44] VITALS: BP 146/108; TEMP 98; O2SAT 100
== END 2022-12-13 20:45 | disposition home or self-care (01) ==
LOC: ER 16:56
DX: S09.90XA Unspecified injury of head, initial encounter (principal); Z20.2 Contact with and (suspected) exposure to infections with a predominantly sexual mode of transmission
CPT/HCPCS: 70450; 70486; 72125; 76377; 81015; 81025; 87086; 87088; 87490; 87590; 99282

== ENCOUNTER 2023-01-07 20:00 | Emergency (ER) | payer BC, OTHER ==
--- OUTSIDE RECORDS SUMMARY | 2023-01-07 20:09 | XMS REPORT | Continuity of Care Document ---
:2000 Author Organization [facility] t Address [address] [facility]. [address] [place] [address] Care Team Providers Name Role Phone Janiya Perez Primary Care Physician [phone] Steffany Zapata MD Attending Clinician Unknown, Attending Attending Clinician Unavailable STEFFANY ZAPATA Attending Clinician Unavailable WILLIAMS VIDALES Attending Clinician Unavailable Williams Au Attending Clinician STEFFANY ARGUELLO Attending Clinician Unavailable GALINA LIND Attending Clinician Unavailable Josey Koch MD Attending Clinician JOSEY KOCH Attending Clinician Unavailable HENRIETTA SANTOS Attending Clinician Unavailable Doctor Unassigned, [place] Attending Clinician Unavailable Petra Rob RN Attending Clinician UNKNOWN, ATTENDING Attending Clinician Unavailable [facility] Attending Clinician Unavailable Angel Sams MD Attending Clinician ANGEL SAMS Attending Clinician Unavailable Aneta Joseph MD Attending Clinician [phone] Chacha Gomez MD Attending Clinician CHACHA GOMEZ Attending Clinician Unavailable LILIYA PATEL Attending Clinician Unavailable LILIYA PATEL Attending Clinician Unavailable ZULLY HOLT Attending Clinician Unavailable ELIJAH HERNANDEZ Attending Clinician Unavailable Elijah Hernandez MD Attending Clinician [facility] Attending Clinician Unavailable Zully Holt PA-C Attending Clinician Henrietta Santos MD Attending Clinician Mara Olivarez Attending Clinician Lab, [facility] Attending Clinician Unavailable MARA CUEVAS Attending Clinician Unavailable LORENZA CHEW Attending Clinician Unavailable Lorenza Klein Attending Clinician ROSA ERAZO Attending Clinician Unavailable Rosa Hale Attending Clinician 2, [facility] Attending Clinician Unavailable LOKESH MISHRA Attending Clinician Unavailable AMANDA PARKER Attending Clinician Unavailable Lokesh Mishra MD Attending Clinician [facility], [facility] Attending Clinician Unavailable Moe Marie DO Attending Clinician MOE MARIE Attending Clinician Unavailable Rachel Sanchez RN Attending Clinician Unavailable Yvon Garcia CRNA Attending Clinician Phill Louie MD Attending Clinician [facility], [facility] Main Attending Clinician Unavailable 1, [facility] Attending Clinician Unavailable BHARGAV SARABIA Attending Clinician Unavailable Jocelyn Brice Attending Clinician [phone] HETAL HOOK Attending Clinician Unavailable [facility] Vst, [facility]p [facility] Pills Class Attending Clinician Unavailable Hetal Muniz Attending Clinician PHILL INFANTE Attending Clinician Unavailable Arelis JIMENEZ MD, John Attending Clinician Amanda Yates Attending Clinician JOCELYN VASQUEZ Attending Clinician Unavailable Provider, [facility] Attending Clinician Unavailable Evi Greer Attending Clinician EVI RODRIGUEZ Attending Clinician Unavailable Lab, [facility] Attending Clinician Unavailable Babatunde PETIT, [place] Attending Clinician Unavailable [facility] Attending Clinician Unavailable Vi FOSTER, Tony Martini Attending Clinician Kevin FOSTER, Jim Mckeon Attending Clinician NATA DINERO Attending Clinician Unavailable Erika De Leon MD Attending Clinician [phone] Gasper Morton MD Attending Clinician JOSEY KOCH Admitting Clinician Unavailable Josey Koch MD Admitting Clinician ELIJAH HERNANDEZ Admitting Clinician Unavailable ZULLY HOLT Admitting Clinician Unavailable HENRIETTA SANTOS Admitting Clinician Unavailable Henrietta Santos MD Admitting Clinician NATA DINERO Admitting Clinician Unavailable Erika De Leon MD Admitting Clinician [phone] Payers Payer Name Policy Type Policy Number Effective Date Expiration Date S gal[facility] [id number] 2022 00:00:00 MEDICAID PENDING PENDING 2020 00:00:00 Problems Condition Condition Condition Status Onset Resolution Last Treating Co mments Source Name Details Category Date Date Treatment Clinician Date Small Small Disease Active Univers bowel bowel 6-27 [place] [facility] Cysts of Cysts of Disease Active Unive rs both both 4-04 ity of ovaries ovaries 00:00: [address] Pain Pain Disease Active Univers pelvic pelvic 4-04 ity of 00:00: [address] Obesity Obesity Disease Active Univers (BMI (BMI 7-13 ity of 30-39.9) 30-39.9) 00:00: [address] Branch Postoperat Postoperat Disease Active U nivers adalgisa adalgisa 6-22 ity of dehiscence dehiscence [place] skin of skin 00 Medical wound, wound, Branch initial initial encounter encounter Status Status Disease Active Univers post post 6-21 [place] of bilateral [place] [...] Added automatic ally from request for surgery [id number] Nexplanon Nexplanon Disease Active Uni vers in [...] Active Univers ALLERGIE Class ity of S [facility] Social History Social Habit Start Date Stop Date Quantity Comments Source History SDMS University o f Social Connections [place] [facility] Get Together Branch History [facility] University o f Social Connections [place] [facility] Zoroastrian Branch History [facility] University o f Social Connections [place] [facility] Membership Branch History [facility] University o f Social Connections [place] [facility] Meetings Branch Gender identity Universit y of [facility] Sexual orientation Univer sity of [facility] Alcohol intake 2023-01-03 2023-01-03 Current drinker of Un iversity of 00:00:00 00:00:00 [facility] (finding) [facility] History [facility] 2022-10-13 2022-10-13 2 University o f Alcohol Frequency 00:00:00 00:00:00 [facility] History [facility] 2022-10-13 2022-10-13 3 University o f Alcohol Std Drinks 00:00:00 00:00:00 [place] [facility] History [facility] 2022-10-13 2022-10-13 2 University o f Alcohol Binge 00:00:00 00:00:00 [place] [facility] History SDOH 2022-10-13 2022-10-13 5 University o f Social Connections 00:00:00 00:00:00 [place] [facility] Phone Branch History SDOH 2022-10-13 2022-10-13 7 University o f Social Connections 00:00:00 00:00:00 [place] [facility] Living Branch History SDOH 2022-10-13 2022-10-13 0 University o f Physical Activity 00:00:00 00:00:00 [place] [facility] edical DPW Branch History SDOH 2022-10-13 2022-10-13 0 University o f Physical Activity 00:00:00 00:00:00 [place] [facility] edical MPS Branch History SDOH 2022-10-13 2022-10-13 5 University o f Financial 00:00:00 00:00:00 [place] [facility] History SDOH Food 2022-10-13 2022-10-13 1 Univers ity of Worry 00:00:00 00:00:00 [place] [facility] History SDOH Food 2022-10-13 2022-10-13 1 Univers ity of Scarcity 00:00:00 00:00:00 [place] [facility] History SDOH 2022-10-13 2022-10-13 2 University o f Transport Med 00:00:00 00:00:00 [place] [facility] Branch History SDOH 2022-10-13 2022-10-13 2 University o f Transport Non-Med 00:00:00 00:00:00 [place] [facility] edical Branch History SDOH 2022-10-13 2022-10-13 2 University o f Housing Unable to 00:00:00 00:00:00 [place] [facility] edical Pay Branch History SDOH 2022-10-13 2022-10-13 2 University o f Housing Places 00:00:00 00:00:00 [place] [facility] suleiman Lived Branch History SDOH 2022-10-13 2022-10-13 2 University o f Housing Homeless 00:00:00 00:00:00 [place] Me dical Last Year Branch Exposure to 2022-10-01 2022-10-11 Not sure University of SARS-CoV-2 (event) 00:00:00 00:40:00 [place] [facility] History of Social 2022-07-06 2022-07-06 Univers ity of function 00:00:00 00:00:00 [facility] Tobacco use and 2021-10-28 2021-10-28 Smokeless tobacco Un iversity of exposure 00:00:00 00:00:00 non-user [facility] Alcohol Comment 2021-08-24 2021-08-24 occasionally Univers ity of 00:00:00 00:00:00 [facility] Sex Assigned At [birth year] Universit y of 00:00:00 00:00:00 [facility] Smoking Status Start Date Stop Date Source Never smoked tobacco [facility] Medications Ordered Filled Start Stop Current Ordering Indication Dosage Frequency Signature Comments Components Source Medication Medication Date Date Medication? Clinician (SIG) Name Name rosi Yes [id number] 10mL Take 10 mL Univers mine-pseudo 9-18 by mouth 4 it y of ephedrine-D 00:00[place] (four[place] (BROMFED 00 times Medical DM) 2-30-10 daily as Bran ch mg/5 mL needed for syrup Congestion /Allergies . amoxicillin 2022- Yes [id number] 500mg Take 1 Univers 500 mg 9-18 09-29 tablet by ity of tablet 00:00: 04:59 mouth in [place] 00 :00 [facility] Medical morning [place] and 1 tablet in the evening. Do all this for 10 days. FLUoxetine Yes 10mg Take 1 Unive rs 10 mg 9-01 capsule by ity of capsule 10:04: mouth in [address] Medical morning [place] and 1 capsule at noon and 1 capsule in the evening. FLUoxetine Yes 10mg Take 1 Unive rs 10 mg 9-01 capsule by ity of capsule 10:04: mouth in [address] Medical morning [place] and 1 capsule at noon and 1 capsule in the evening. Nitrofurant 2022- Yes [id number] 100mg Take 1 Univers oin&Nit. -03 24-18 capsule by ity of [place] 00:00: 04:59 [place] 100 mg 00 :00 the Medical capsule morning Branch and 1 capsule in the evening. Do all this for 5 days. Nitrofurant 2022- No [id number] 100mg Take 1 Univers oin&Nit. 7-12 07-18 capsule by ity of Macrocryst 00:00: 04:59 [place] 100 mg 00 :00 the Medical capsule morning Branch and 1 capsule in the evening. Do all this for 5 days. polyethylen 2022- Yes [id number] 17g Take 1 Univers e glycol -05 26- Packet by ity o f 3350 17 00:00: 04:59 mouth in [place] gram powder 00 :00 the Medical morning Branch for 30 days. polyethylen 2022- Yes [id number] 17g Take 1 Univers e glycol 7-05 26- Packet by ity o f 3350 17 00:00: 04:59 mouth in [place] gram powder 00 :00 the Medical morning Branch for 30 days. polyethylen 2022- Yes [id number] 17g Take 1 Univers e glycol -05 26- Packet by ity o f 3350 17 00:00: 04:59 mouth in [place] gram powder 00 :00 the Medical morning Branch for 30 days. polyethylen 2022- Yes [id number] 17g Take 1 Univers e glycol -05 26- Packet by ity o f 3350 17 00:00: 04:59 mouth in [place] gram powder 00 :00 the Medical morning Branch for 30 days. polyethylen 2022- Yes [id number] 17g Take 1 Univers e glycol -05 26- Packet by ity o f 3350 17 00:00: 04:59 mouth in [place] gram powder 00 :00 the Medical morning Branch for 30 days. polyethylen 2022- Yes [id number] 17g Take 1 Univers e glycol -05 26- Packet by ity o f 3350 17 00:00: 04:59 mouth in [place] gram powder 00 :00 the Medical morning Branch for 30 days. polyethylen 2022- Yes [id number] 17g Take 1 Univers e glycol 7-05 26- Packet by ity o f 3350 17 00:00: 04:59 mouth in [place] gram powder 00 :00 the Medical morning Branch for 30 days. FLUoxetine Yes 10mg Take 10 mg U nivers 10 mg 10-16 by mouth 3 ity of capsule 14:45: (three) [place] 52 times Medical daily. Branch FLUoxetine 2023-0 Yes 10mg Take 10 mg U nivers 10 mg 7-01 by mouth 3 ity of capsule 14:45: (three) [place] 52 times Medical daily. Branch FLUoxetine 2022-0 Yes 10mg Take 10 mg U nivers 10 mg 7-01 by mouth 3 ity of capsule 14:45: (three) [place] 52 times Medical daily. Branch FLUoxetine 3-0 Yes 10mg Take 10 mg U nivers 10 mg 7-01 by mouth 3 ity of capsule 14:45: (three) [place] 52 times Medical daily. Branch FLUoxetine 2022-0 Yes 10mg Take 10 mg U nivers 10 mg 7-01 by mouth 3 ity of capsule 14:45: (three) [place] 52 times Medical daily. Branch FLUoxetine 2022-0 Yes 10mg Take 10 mg U nivers 10 mg 7-01 by mouth 3 ity of capsule 14:45: (three) [place] 52 times Medical daily. Branch FLUoxetine 2022-0 Yes 10mg Take 10 mg U nivers 10 mg 7-01 by mouth 3 ity of capsule 14:45: (three) [place] 52 times Medical daily. Branch acetaminoph 0 2022- Yes [id number] 500mg Take 1 Univers en (TYLENOL 10-16-09 tablet by it y of EXTRA 00:00: 04:59 mouth [place] STRENGTH) 00 :00 every 6 Medical 500 mg (six) Branch tablet hours as needed for Pain for up to 7 days. acetaminoph 2022-0 2022- Yes [id number] 500mg Take 1 Univers en (TYLENOL -04 24-09 tablet by it y of EXTRA 00:00: 04:59 mouth [place] STRENGTH) 00 :00 every 6 Medical 500 mg (six) Branch tablet hours as needed for Pain for up to 7 days. polyethylen 0 Yes 17g 17 g, Unive rs e glycol 6-30 Oral, ity of 3350 powder 14:00: DAILY, [place] 17 [place] 00 First dose Medical on Tue Branch 10/15/22 at 0900, Until Discontinu ed, Routine D5W 0.45% 2022- No IV Univers NaCl 630 06-30 Infusion, ity of (1/2NS) 1 L 13:45: [...] Tue10/14/22 at 1200, Routine iopamidol 2022- No [id number] 300mL 300 mL, Univers (ISOVUE 10-13 Intravenou ity o f 300-50 mL) 15:15: 15:15 s, ONCE, 1 [place] injection 00 :00 dose, On Medica l 300 mL Tue10/13/22 at 1015, Routine enoxaparin 2022- No 40mg 40 mg, Univ ers (LOVENOX) 10-12 Subcutaneo ity of injection 22:00: 17:53 us, DAILY, [place] 40 mg 00 :27 First dose Medical on Tue Branch 10/12/22 at 1700, Until Discontinu ed, Routine acetaminoph 2022- No 1000mg 1,000 mg, Univers en ADULT 10-12 IV ity of (IRMEV) 20:45: 13:44 Infusion, [place] injection 00 :00 at 400 Medical 1,000 mg mL/hr Branch Administer over 15 Minutes, Q8H, 3 doses, First dose (after last modificati on) on Tue10/12/22 at 1545, Last dose on Tue10/13/22 at 0600, Routine
Indicatio n: Perioperat adalgisa Patient KCL 0 2022- No IV Univers (POTASSIUM 10-12 Infusion, ity of CHLORIDE) 20:30: 12:32 CONTINUOUS [place] 10 mEq in 00 :40 , Starting Medi suleiman D5W 0.45% on Tue Branch NaCl 10/12/22 at (1/2NS) 1530, 1,000 mL IV Until Fri Solution 10/15/22 at 0732, 1,000 mL, at 125 mL/hr pantoprazol 2022- No 40mg 40 mg, Uni vers e 10-12 Slow IV ity of (PROTONIX) 19:30: 20:13 Push, [place] injection 00 :00 Q24H, 3 Medical 40 mg doses, Branch First dose on Tue10/12/22 at 1430, Last dose on Tue10/14/22 at 1430 ketorolac 0 2022- No 15mg 15 mg, Unive rs (TORADOL) 10-12 Slow IV ity of injection 19:30: 22:59 Push, Q6H, [place] 15 mg 00 :00 5 doses, Medical First dose Branch on Tue10/12/22 at 1430, Last dose on Tue10/13/22 at 1200, Routine ondansetron Yes 4mg 4 mg, Slow Univers (ZOFRAN 10-12 IV Push, ity of (PF)) 19:16: Q6HPRN, [place] injection 4 16 Starting Medi suleiman mg on Tue Branch 10/12/22 at 1416, Until Discontinu ed, Routine, Nausea and Vomiting (N/V) tiZANidine 0 Yes Univers 4 mg tablet - ity of 00:00: Medical [place] naproxen 2022-0 Yes Univers 500 mg - ity of tablet 00:00: [facility] Branch tiZANidine 2022-0 Yes Univers 4 mg tablet - ity of 00:00: Medical Branch naproxen 2022-0 Yes Univers 500 mg - ity of tablet 00:00: Medical Branch dicyclomine Yes [id number] 10mg Take 1 Univers 10 mg 4-25 [id number] capsule by ity of capsule 00:00: mouth [place] 00 every 6 Medical (six) Branch hours as needed for Abdominal pain. dicyclomine 3-0 Yes [id number] 10mg Take 1 Univers 10 mg 4-25 80317 capsule by ity of capsule 00:00: mouth [place] 00 every 6 Medical (six) Branch hours as needed for Abdominal pain. dicyclomine 2022-0 Yes [id number] 10mg Take 1 Univers 10 mg 4-25 [id number] capsule by ity of capsule 00:00: mouth [place] 00 every 6 Medical (six) Branch hours as needed for Abdominal pain. dicyclomine 2022-0 Yes [id number] 10mg Take 1 Univers 10 mg 4-25 [id number] capsule by ity of capsule 00:00: mouth [place] 00 every 6 Medical (six) Branch hours as needed for Abdominal pain. dicyclomine 2022-0 Yes [id number] 10mg Take 1 Univers 10 mg 4-25 [id number] capsule by ity of capsule 00:00: mouth [place] 00 every 6 Medical (six) Branch hours as needed for Abdominal pain. dicyclomine 2022-0 Yes [id number] 10mg Take 1 Univers 10 mg 4-25 [id number] capsule by ity of capsule 00:00: mouth [place] 00 every 6 Medical (six) Branch hours as needed for Abdominal pain. dicyclomine 2022-0 Yes [id number] 10mg Take 1 Univers 10 mg 4-25 [id number] capsule by ity of capsule 00:00: mouth [place] 00 every 6 Medical (six) Branch hours as needed for Abdominal pain. dicyclomine 3-0 Yes [id number] 10mg Take 1 Univers 10 mg 4-25 52477 capsule by ity of capsule 00:00: mouth [place] 00 every 6 Medical (six) Branch hours as needed for Abdominal pain. dicyclomine 3-0 Yes [id number] 10mg Take 1 Univers 10 mg 4-25 [id number] capsule by ity of capsule 00:00: mouth [place] 00 every 6 Medical (six) Branch hours as needed for Abdominal pain. dicyclomine 3-0 Yes [id number] 10mg Take 1 Univers 10 mg 4-25 52214 capsule by ity of capsule 00:00: mouth [place] 00 every 6 Medical (six) Branch hours as needed for Abdominal pain. dicyclomine 2022-0 Yes [id number] 10mg Take 1 Univers 10 mg 4-25 45531 capsule by ity of capsule 00:00: mouth [place] 00 every 6 Medical (six) Branch hours as needed for Abdominal pain. dicyclomine 2022-0 Yes [id number] 10mg Take 1 Univers 10 mg 4-25 66897 capsule by ity of capsule 00:00: mouth [place] 00 every 6 Medical (six) Branch hours as needed for Abdominal pain. dicyclomine 2022-0 Yes [id number] 10mg Take 1 Univers 10 mg 4-25 69801 capsule by ity of capsule 00:00: mouth [place] 00 every 6 Medical (six) Branch hours as needed for Abdominal pain. dicyclomine 2022-0 Yes [id number] 10mg Take 1 Univers 10 mg 4-25 92948 capsule by ity of capsule 00:00: mouth [place] 00 every 6 Medical (six) Branch hours as needed for Abdominal pain. predniSONE 2022-0 2022- No [id number] Take 3 Univers 10 mg 4-25 06-07 38761 tablets by ity of tablet 00:00: 04:59 mouth [place] 00 :00 daily for Medical 14 days, Branch THEN 2 tablets daily for 14 days, THEN 1 tablet daily for 14 days. predniSONE 2022-0 2022- No [id number] Take 3 Univers 10 mg 4-25 06-07 [id number] tablets by ity of tablet 00:00: 04:59 mouth [place] 00 :00 daily for Medical 14 days, Branch THEN 2 tablets daily for 14 days, THEN 1 tablet daily for 14 days. predniSONE 2022-0 2022- No [id number] Take 3 Univers 10 mg 4-25 06-07 [id number] tablets by ity of tablet 00:00: 04:59 mouth [place] 00 :00 daily for Medical 14 days, Branch THEN 2 tablets daily for 14 days, THEN 1 tablet daily for 14 days. predniSONE 2022-0 2022- No [id number] Take 3 Univers 10 mg 4-25 06-07 18272 tablets by ity of tablet 00:00: 04:59 mouth [place] 00 :00 daily for Medical 14 days, Branch THEN 2 tablets daily for 14 days, THEN 1 tablet daily for 14 days. omeprazole 2022-0 Yes [id number] 20mg Take 1 Univers 20 mg 4-05 38627 capsule by ity of capsule 00:00: mouth in [place] 00 the Medical morning. Branch azaTHIOprin 3-0 Yes [id number] 50mg Take 1 Univers e 50 mg 4-05 [id number] tablet by ity of tablet 00:00: mouth in [place] 00 the Medical morning. Branch omeprazole 2023-0 Yes [id number] 20mg Take 1 Univers 20 mg 4-05 [id number] capsule by ity of capsule 00:00: mouth in [place] 00 the Medical morning. Branch azaTHIOprin 3-0 Yes [id number] 50mg Take 1 Univers e 50 mg 4-05 03406 tablet by ity of tablet 00:00: mouth in [place] 00 the Medical morning. Branch omeprazole 3-0 Yes [id number] 20mg Take 1 Univers 20 mg 4-05 48147 capsule by ity of capsule 00:00: mouth in [place] 00 the Medical morning. Branch azaTHIOprin 3-0 Yes [id number] 50mg Take 1 Univers e 50 mg 4-05 57842 tablet by ity of tablet 00:00: mouth in [place] 00 the Medical morning. Branch omeprazole 3-0 Yes [id number] 20mg Take 1 Univers 20 mg 4-05 62145 capsule by ity of capsule 00:00: mouth in [place] the Medical morning. Branch azaTHIOprin 3-0 Yes [id number] 50mg Take 1 Univers e 50 mg 4-05 17643 tablet by ity of tablet 00:00: mouth in [place] 00 the Medical morning. Branch omeprazole 3-0 Yes [id number] 20mg Take 1 Univers 20 mg 4-05 20471 capsule by ity of capsule 00:00: mouth in [place] 00 the Medical morning. Branch azaTHIOprin 2023-0 Yes [id number] 50mg Take 1 Univers e 50 mg 4-05 28000 tablet by ity of tablet 00:00: mouth in [place] 00 the Medical morning. Branch omeprazole 2023-0 Yes [id number] 20mg Take 1 Univers 20 mg 4-05 18388 capsule by ity of capsule 00:00: mouth in [place] 00 the Medical morning. Branch azaTHIOprin 2023-0 Yes [id number] 50mg Take 1 Univers e 50 mg 4-05 [id number] tablet by ity of tablet 00:00: mouth in [place] 00 the Medical morning. Branch omeprazole 2023-0 Yes [id number] 20mg Take 1 Univers 20 mg 4-05 98749 capsule by ity of capsule 00:00: mouth in [place] 00 the Medical morning. Branch azaTHIOprin 3-0 Yes [id number] 50mg Take 1 Univers e 50 mg 4-05 52060 tablet by ity of tablet 00:00: mouth in [place] 00 the Medical morning. Branch omeprazole 3-0 Yes [id number] 20mg Take 1 Univers 20 mg 4-05 32204 capsule by ity of capsule 00:00: mouth in [place] 00 the Medical morning. Branch azaTHIOprin 3-0 Yes [id number] 50mg Take 1 Univers e 50 mg 4-05 27953 tablet by ity of tablet 00:00: mouth in [place] 00 the Medical morning. Branch omeprazole 3-0 Yes [id number] 20mg Take 1 Univers 20 mg 4-05 [id number] capsule by ity of capsule 00:00: mouth in [place] 00 the Medical morning. Branch azaTHIOprin 3-0 Yes [id number] 50mg Take 1 Univers e 50 mg 4-05 [id number] tablet by ity of tablet 00:00: mouth in [place] 00 the Medical morning. Branch omeprazole 3-0 Yes [id number] 20mg Take 1 Univers 20 mg 4-05 93092 capsule by ity of capsule 00:00: mouth in [place] 00 the Medical morning. Branch azaTHIOprin 3-0 Yes [id number] 50mg Take 1 Univers e 50 mg 4-05 87364 tablet by ity of tablet 00:00: mouth in [place] 00 the Medical morning. Branch omeprazole 3-0 Yes [id number] 20mg Take 1 Univers 20 mg 4-05 24154 capsule by ity of capsule 00:00: mouth in [place] 00 the Medical morning. Branch azaTHIOprin 3-0 Yes [id number] 50mg Take 1 Univers e 50 mg 4-05 33953 tablet by ity of tablet 00:00: mouth in [place] 00 the Medical morning. Branch omeprazole 3-0 3- No [id number] 20mg Take 1 Univers 20 mg 4-05 07-12 10185 capsule by ity of capsule 00:00: 00:00 mouth in [place] 00 :00 the Medical morning. Branch azaTHIOprin 2023-0 3- No [id number] 50mg Take 1 Univers e 50 mg 4-05 -12 07821 tablet by ity o f tablet 00:00: 00:00 mouth in [place] 00 :00 the Medical morning. Branch omeprazole 2022-0 2022- No [id number] 20mg Take 1 Univers 20 mg 07-21 [id number] capsule by ity of capsule 00:00: 00:00 mouth in [place] 00 :00 the Medical morning. Branch azaTHIOprin 2022-0 2022- No [id number] 50mg Take 1 Univers e 50 mg 07-21 01832 tablet by ity o f tablet 00:00: 00:00 mouth in [place] 00 :00 the Medical morning. Branch azaTHIOprin 2022-0 Yes [id number] 50mg Take 1 Univers e 50 mg 3-31 07814 tablet by ity of tablet 00:00: mouth in [place] 00 the Medical morning. Branch azaTHIOprin 2022-0 Yes [id number] 50mg Take 1 Univers e 50 mg 3-31 66984 tablet by ity of tablet 00:00: mouth in [place] 00 the Medical morning. Branch azaTHIOprin 2022-0 Yes [id number] 50mg Take 1 Univers e 50 mg 3-31 77205 tablet by ity of tablet 00:00: mouth in [place] 00 the Medical morning. Branch azaTHIOprin 2022-0 2022- No [id number] 50mg Take 1 Univers e 50 mg 3-31 - 39459 tablet by ity o f tablet 00:00: 00:00 mouth in [place] 00 :00 the Medical morning. Branch dicyclomine 3-0 Yes [id number] 10mg Take 1 Univers 10 mg 3-21 25028 capsule by ity of capsule 00:00: mouth [place] [address] every 6 Medical (six) Branch hours as needed for Abdominal pain. dicyclomine 3-0 Yes [id number] 10mg Take 1 Univers 10 mg 3-21 15689 capsule by ity of capsule 00:00: mouth [place] [address] every 6 Medical (six) Branch hours as needed for Abdominal pain. dicyclomine 3-0 Yes [id number] 10mg Take 1 Univers 10 mg 3-21 37787 capsule by ity of capsule 00:00: mouth [place] 00 every 6 Medical (six) Branch hours as needed for Abdominal pain. dicyclomine 3-0 Yes [id number] 10mg Take 1 Univers 10 mg 3-21 07741 capsule by ity of capsule 00:00: mouth [place] 00 every 6 Medical (six) Branch hours as needed for Abdominal pain. dicyclomine 3-0 Yes [id number] 10mg Take 1 Univers 10 mg 3-21 59414 capsule by ity of capsule 00:00: mouth [place] 00 every 6 Medical (six) Branch hours as needed for Abdominal pain. dicyclomine 3-0 Yes [id number] 10mg Take 1 Univers 10 mg 3-21 [id number] capsule by ity of capsule 00:00: mouth [place] 00 every 6 Medical (six) Branch hours as needed for Abdominal pain. dicyclomine 3-0 Yes [id number] 10mg Take 1 Univers 10 mg 3-21 23563 capsule by ity of capsule 00:00: mouth [place] 00 every 6 Medical (six) Branch hours as needed for Abdominal pain. dicyclomine 3-0 Yes [id number] 10mg Take 1 [facility] 10 mg 3-21 [id number] capsule by ity of capsule 00:00: mouth [place] 00 every 6 Medical (six) Branch hours as needed for Abdominal pain. dicyclomine 3-0 Yes [id number] 10mg Take 1 [facility] 10 mg 3-21 [id number] capsule by ity of capsule 00:00: mouth [place] 00 every 6 Medical (six) Branch hours as needed for Abdominal pain. dicyclomine 3-0 Yes [id number] 10mg Take 1 [facility] 10 mg 3-21 [id number] capsule by ity of capsule 00:00: mouth [place] 00 every 6 Medical (six) Branch hours as needed for Abdominal pain. dicyclomine 3-0 Yes [id number] 10mg Take 1 [facility] 10 mg 3-21 [id number] capsule by ity of capsule 00:00: mouth [place] 00 every 6 Medical (six) Branch hours as needed for Abdominal pain. dicyclomine 3-0 Yes [id number] 10mg Take 1 [facility] 10 mg 3-21 [id number] capsule by ity of capsule 00:00: mouth [place] 00 every 6 Medical (six) Branch hours as needed for Abdominal pain. dicyclomine 3-0 Yes [id number] 10mg Take 1 [facility] 10 mg 3-21 [id number] capsule by ity of capsule 00:00: mouth [place] 00 every 6 Medical (six) Branch hours as needed for Abdominal pain. dicyclomine 2023-0 Yes [id number] 10mg Take 1 [facility] 10 mg 3-21 [id number] capsule by ity of capsule 00:00: mouth [place] 00 every 6 Medical (six) Branch hours as needed for Abdominal pain. omeprazole 2022-0 3- No [id number] 20mg Take 1 [facility] 20 mg 3-21 06-20 [id number] capsule by ity of capsule 00:00: 04:59 mouth in [place] 00 :00 the [facility] morning Branch for 90 days. omeprazole 2022-0 3- No [id number] 20mg Take 1 [facility] 20 mg 3-21 06-20 [id number] capsule by ity of capsule 00:00: 04:59 mouth in [place] 00 :00 the [facility] Branch for 90 days. omeprazole 2022-0 3- No [id number] 20mg Take 1 [facility] 20 mg 3-21 06-20 [id number] capsule by ity of capsule 00:00: 04:59 mouth in [place] 00 :00 the [facility] for 90 days. omeprazole 2022-0 3- No [id number] 20mg Take 1 [facility] 20 mg 3-21 06-20 [id number] capsule by ity of capsule 00:00: 04:59 mouth in [place] 00 :00 the [facility] for 90 days. omeprazole 2022-0 3- No [id number] 20mg Take 1 [facility] 20 mg 3-21 06-20 [id number] capsule by ity of capsule 00:00: 04:59 mouth in [place] 00 :00 the [facility] for 90 days. omeprazole 2022-0 3- No [id number] 20mg Take 1 [facility] 20 mg 3-21 06-20 [id number] capsule by ity of capsule 00:00: 04:59 mouth in [place] 00 :00 the [facility] for 90 days. omeprazole 2022-0 3- No [id number] 20mg Take 1 [facility] 20 mg 3-21 06-20 [id number] capsule by ity of capsule 00:00: 04:59 mouth in [place] 00 :00 the [facility] for 90 days. omeprazole 2022-0 3- No [id number] 20mg Take 1 [facility] 20 mg 3-21 06-20 [id number] capsule by ity of capsule 00:00: 04:59 mouth in [place] 00 :00 the [facility] Branch for 90 days. omeprazole 2022-0 2023- No [id number] 20mg Take 1 [facility] 20 mg 3-21 06-20 [id number] capsule by ity of capsule 00:00: 04:59 mouth in [place] 00 :00 the [facility] for 90 days. omeprazole 2022-0 2022- No [id number] 20mg Take 1 [facility] 20 mg 3-21 06-20 [id number] capsule by ity of capsule 00:00: 04:59 mouth in [place] 00 :00 the [facility] for 90 days. omeprazole 2022-2022- No [id number] 20mg Take 1 [facility] 20 mg 3-21 06-20 [id number] capsule by ity of capsule 00:00: 04:59 mouth in [place] 00 :00 the [facility] for 90 days. predniSONE 2022-0 2022- No [id number] Take 4 [facility] 10 mg 3-21 05-12 [id number] tablets by ity of tablet 00:00: 04:59 mouth [place] 00 :00 daily for Medical 30 days, Branch THEN 3 tablets daily for 7 days, THEN 2 tablets daily for 7 days, THEN 1 tablet daily for 7 days. predniSONE 2022-0 2022- No [id number] Take 4 [facility] 10 mg 3-21 05-12 [id number] tablets by ity of tablet 00:00: 04:59 mouth [place] 00 :00 daily for Medical 30 days, Branch THEN 3 tablets daily for 7 days, THEN 2 tablets daily for 7 days, THEN 1 tablet daily for 7 days. predniSONE 2022-0 2022- No [id number] Take 4 [facility] 10 mg 3-21 05-12 [id number] tablets by ity of tablet 00:00: 04:59 mouth [place] 00 :00 daily for Medical 30 days, Branch THEN 3 tablets daily for 7 days, THEN 2 tablets daily for 7 days, THEN 1 tablet daily for 7 days. predniSONE 2022-0 2022- No [id number] Take 4 [facility] 10 mg 3-21 05-12 [id number] tablets by ity of tablet 00:00: 04:59 mouth [place] 00 :00 daily for Medical 30 days, Branch THEN 3 tablets daily for 7 days, THEN 2 tablets daily for 7 days, THEN 1 tablet daily for 7 days. predniSONE 2022-0 2022- No [id number] Take 4 [facility] 10 mg 3-21 05-12 [id number] tablets by ity of tablet 00:00: 04:59 mouth [place] 00 :00 daily for Medical 30 days, Branch THEN 3 tablets daily for 7 days, THEN 2 tablets daily for 7 days, THEN 1 tablet daily for 7 days. predniSONE 2022-0 2022- No [id number] Take 4 [facility] 10 mg 3-21 05-12 [id number] tablets by ity of tablet 00:00: :59 mouth [place] 00 :00 daily for Medical 30 days, Branch THEN 3 tablets daily for 7 days, THEN 2 tablets daily for 7 days, THEN 1 tablet daily for 7 days. predniSONE 2022-0 2022- No [id number] Take 4 [facility] 10 mg 3-21 05-12 [id number] tablets by ity of tablet 00:00: 04:59 mouth [place] 00 :00 daily for Medical 30 days, Branch THEN 3 tablets daily for 7 days, THEN 2 tablets daily for 7 days, THEN 1 tablet daily for 7 days. predniSONE 2022-2022- No [id number] Take 4 [facility] 10 mg 3-21 05-12 [id number] tablets by ity of tablet 00:: :59 mouth [place] 00 :00 daily for Medical 30 days, Branch THEN 3 tablets daily for 7 days, THEN 2 tablets daily for 7 days, THEN 1 tablet daily for 7 days. predniSONE 2022-0 2022- No [id number] Take 4 [facility] 10 mg 3-21 05-12 [id number] tablets by ity of tablet 00:: :59 mouth [place] 00 :00 daily for Medical 30 days, Branch THEN 3 tablets daily for 7 days, THEN 2 tablets daily for 7 days, THEN 1 tablet daily for 7 days. predniSONE 2022-0 2022- No [id number] Take 4 [facility] 10 mg 3-21 05-12 [id number] tablets by ity of tablet 00:: 04:59 mouth [place] 00 :00 daily for Medical 30 days, Branch THEN 3 tablets daily for 7 days, THEN 2 tablets daily for 7 days, THEN 1 tablet daily for 7 days. predniSONE 2022-0 2022- No [id number] Take 4 [facility] 10 mg 3-21 05-12 [id number] tablets by ity of tablet 00:00: 04:59 mouth [place] 00 :00 daily for Medical 30 days, Branch THEN 3 tablets daily for 7 days, THEN 2 tablets daily for 7 days, THEN 1 tablet daily for 7 days. predniSONE 2022-0 2022- No [id number] Take 4 [facility] 10 mg 3-21 05-12 [id number] tablets by ity of tablet 00:00: 04:59 mouth [place] 00 :00 daily for Medical 30 days, Branch THEN 3 tablets daily for 7 days, THEN 2 tablets daily for 7 days, THEN 1 tablet daily for 7 days. predniSONE 2022- No [id number] Take 4 [facility] 10 mg 3-21 05-12 [id number] tablets by ity of tablet 00:00: 04:59 mouth [place] 00 :00 daily for Medical 30 days, Branch THEN 3 tablets daily for 7 days, THEN 2 tablets daily for 7 days, THEN 1 tablet daily for 7 days. predniSONE 2022- No [id number] Take 4 [facility] 10 mg 3-21 05-12 [id number] tablets by ity of tablet 00:00: 04:59 mouth [place] 00 :00 daily for Medical 30 days, Branch THEN 3 tablets daily for 7 days, THEN 2 tablets daily for 7 days, THEN 1 tablet daily for 7 days. predniSONE 2022- No [id number] Take 4 [facility] 10 mg 3-21 05-12 [id number] tablets by ity of tablet 00:00: 04:59 mouth [place] 00 :00 daily for Medical 30 days, Branch THEN 3 tablets daily for 7 days, THEN 2 tablets daily for 7 days, THEN 1 tablet daily for 7 days. predniSONE 2022- No [id number] Take 4 [facility] 10 mg 3-21 05-12 [id number] tablets by ity of tablet 00:00: 04:59 mouth [place] 00 :00 daily for Medical 30 days, Branch THEN 3 tablets daily for 7 days, THEN 2 tablets daily for 7 days, THEN 1 tablet daily for 7 days. predniSONE 2022- No [id number] Take 4 [facility] 10 mg 3-21 05-12 [id number] tablets by ity of tablet 00:00: 04:59 mouth [place] 00 :00 daily for Medical 30 days, Branch THEN 3 tablets daily for 7 days, THEN 2 tablets daily for 7 days, THEN 1 tablet daily for 7 days. predniSONE 2022- No [id number] Take 4 [facility] 10 mg 3-21 05-12 [id number] tablets by ity of tablet 00:00: 04:59 mouth [place] 00 :00 daily for Medical 30 days, Branch THEN 3 tablets daily for 7 days, THEN 2 tablets daily for 7 days, THEN 1 tablet daily for 7 days. dicyclomine 3-0 3- No [id number] 10mg Take 1 [facility] 10 mg 07-0600 capsule by ity of capsule 00:00: 00:00 mouth [place] 00 :00 every 6 Medical (six) Branch hours as needed for Abdominal pain. dicyclomine 3-0 3- No [id number] 10mg Take 1 [facility] 10 mg 07-0600 capsule by ity of capsule 00:00: 00:00 mouth [place] 00 :00 every 6 Medical (six) Branch hours as needed for Abdominal pain. dicyclomine 3-0 3- No [id number] 10mg Take 1 [facility] 10 mg 07-0600 capsule by ity of capsule 00:00: 00:00 mouth [place] 00 :00 every 6 Medical (six) Branch hours as needed for Abdominal pain. omeprazole 3-0 3- No [id number] 20mg Take 1 [facility] 20 mg 07-06- capsule by ity of capsule 00:00: 00:00 mouth in [place] 00 :00 the Medical morning Branch for 90 days. solifenacin 2023-0 Yes [id number] 10mg Take 1 Univers (VESICARE) 3-10 tablet by ity of 10 mg 00:00: mouth in [place] tablet 00 the Medical morning. [place] solifenacin 3-0 Yes [id number] 10mg Take 1 Univers (VESICARE) 3-10 tablet by ity of 10 mg 00:00: mouth in [place] tablet 00 the Medical morning. [place] solifenacin 2023-0 Yes [id number] 10mg Take 1 Univers (VESICARE) 3-10 tablet by ity of 10 mg 00:00: mouth in [place] tablet 00 the Medical morning. Branch solifenacin 3-0 Yes [id number] 10mg Take 1 [facility] (VESICARE) 3-10 tablet by ity of 10 mg 00:00: mouth in [place] tablet 00 the Medical morning. [place] solifenacin 2023-0 Yes [id number] 10mg Take 1 Univers (VESICARE) 3-10 tablet by ity of 10 mg 00:00: mouth in [place] tablet 00 the Medical morning. [place] solifenacin 2023-0 Yes [id number] 10mg Take 1 Univers (VESICARE) 3-10 tablet by ity of 10 mg 00:00: mouth in [place] tablet 00 the Medical morning. Branch solifenacin 2023-0 Yes [id number] 10mg Take 1 [facility] (VESICARE) 3-10 tablet by ity of 10 mg 00:00: mouth in [place] tablet 00 the Medical morning. Branch solifenacin 2023-0 Yes [id number] 10mg Take 1 [facility] (VESICARE) 3-10 tablet by ity of 10 mg 00:00: mouth in [place] tablet 00 the Medical morning. Branch solifenacin 2023-0 Yes [id number] 10mg Take 1 [facility] (VESICARE) 3-10 tablet by ity of 10 mg 00:00: mouth in [place] tablet 00 the Medical morning. Branch solifenacin 2023-0 Yes [id number] 10mg Take 1 [facility] (VESICARE) 3-10 tablet by ity of 10 mg 00:00: mouth in [place] tablet 00 the Medical morning. Branch solifenacin 2023-0 Yes [id number] 10mg Take 1 [facility] (VESICARE) 3-10 tablet by ity of 10 mg 00:00: mouth in [place] tablet 00 the Medical morning. Branch solifenacin 2023-0 Yes [id number] 10mg Take 1 [facility] (VESICARE) 3-10 tablet by ity of 10 mg 00:00: mouth in [place] tablet 00 the Medical morning. Branch solifenacin 2023-0 Yes [id number] 10mg Take 1 [facility] (VESICARE) 3-10 tablet by ity of 10 mg 00:00: mouth in [place] tablet 00 the Medical morning. Branch solifenacin 2023-0 Yes [id number] 10mg Take 1 [facility] (VESICARE) 3-10 tablet by ity of 10 mg 00:00: mouth in [place] tablet 00 the Medical morning. Branch solifenacin 2023-0 Yes [id number] 10mg Take 1 [facility] (VESICARE) 3-10 tablet by ity of 10 mg 00:00: mouth in [place] tablet 00 the Medical morning. Branch solifenacin 2023-0 Yes [id number] 10mg Take 1 [facility] (VESICARE) 3-10 tablet by ity of 10 mg 00:00: mouth in [place] tablet 00 the Medical morning. Branch solifenacin 2023-0 Yes [id number] 10mg Take 1 [facility] (VESICARE) 3-10 tablet by ity of 10 mg 00:00: mouth in [place] tablet 00 the Medical morning. Branch solifenacin 2023-0 Yes [id number] 10mg Take 1 [facility] (VESICARE) 3-10 tablet by ity of 10 mg 00:00: mouth in [place] tablet 00 the Medical morning. Branch solifenacin 2023-0 Yes [id number] 10mg Take 1 [facility] (VESICARE) 3-10 tablet by ity of 10 mg 00:00: mouth in [place] tablet 00 the Medical morning. Branch solifenacin 2023-0 Yes [id number] 10mg Take 1 [facility] (VESICARE) 3-10 tablet by ity of 10 mg 00:00: mouth in [place] tablet 00 the Medical morning. Branch solifenacin 2023-0 Yes [id number] 10mg Take 1 [facility] (VESICARE) 3-10 tablet by ity of 10 mg 00:00: mouth in [place] tablet 00 the Medical morning. Branch solifenacin 2023-0 Yes [id number] 10mg Take 1 [facility] (VESICARE) 3-10 tablet by ity of 10 mg 00:00: mouth in [place] tablet 00 the Medical morning. Branch solifenacin 2023-0 Yes [id number] 10mg Take 1 [facility] (VESICARE) 3-10 tablet by ity of 10 mg 00:00: mouth in [place] tablet 00 the Medical morning. Branch solifenacin 2023-0 Yes [id number] 10mg Take 1 [facility] (VESICARE) 3-10 tablet by ity of 10 mg 00:00: mouth in [place] tablet 00 the Medical morning. Branch solifenacin 2023-0 Yes [id number] 10mg Take 1 [facility] (VESICARE) 3-10 tablet by ity of 10 mg 00:00: mouth in [place] tablet 00 the Medical morning. Branch solifenacin 2023-0 Yes [id number] 10mg Take 1 [facility] (VESICARE) 3-10 tablet by ity of 10 mg 00:00: mouth in [place] tablet 00 the Medical morning. Branch solifenacin 2023-0 Yes [id number] 10mg Take 1 [facility] (VESICARE) 3-10 tablet by ity of 10 mg 00:00: mouth in [place] tablet 00 the Medical morning. Branch solifenacin 2023-0 Yes [id number] 10mg Take 1 [facility] (VESICARE) 3-10 tablet by ity of 10 mg 00:00: mouth in [place] tablet 00 the Medical morning. Branch solifenacin 2023-0 Yes [id number] 10mg Take 1 [facility] (VESICARE) 3-10 tablet by ity of 10 mg 00:00: mouth in [place] tablet 00 the Medical morning. Branch solifenacin 3-0 Yes [id number] 10mg Take 1 [facility] (VESICARE) 3-10 tablet by ity of 10 mg 00:00: mouth in [place] tablet 00 the Medical morning. Branch solifenacin 2023-0 Yes [id number] 10mg Take 1 [facility] (VESICARE) 3-10 tablet by ity of 10 mg 00:00: mouth in [place] tablet 00 the Medical morning. Branch solifenacin 3-0 Yes [id number] 10mg Take 1 [facility] (VESICARE) 3-10 tablet by ity of 10 mg 00:00: mouth in [place] tablet 00 the Medical morning. Branch solifenacin 3-0 Yes [id number] 10mg Take 1 [facility] (VESICARE) 3-10 tablet by ity of 10 mg 00:00: mouth in [place] tablet 00 the Medical morning. Branch solifenacin 3-0 Yes [id number] 10mg Take 1 [facility] (VESICARE) 3-10 tablet by ity of 10 mg 00:00: mouth in [place] tablet 00 the Medical morning. Branch FENTanyl PF 2022- No 75ug 75 mcg, Un shobha (SUBLIMAZE 06-22 Slow IV ity o f (PF)) 23:45: 22:58 Push, [place] injection 00 :00 ONCE, 1 Medical 75 mcg dose, On Branch Tue06/22/22 at 1745, STAT iopamidol 2022- No [id number] 87mL 87 mL, Univers (ISOVUE 06-22 Intravenou ity o f 370-500 mL) 22:00: 22:00 s, ONCE, 1 [place] injection 00 :00 dose, On Medica l 87 mL Tue06/22/22 Branch at 1600, Routine FENTanyl PF 2022-0 2022- No 75ug 75 mcg, Un shohba (SUBLIMAZE 06-22 Slow IV ity o f (PF)) 20:30: 19:35 Push, [place] injection 00 :00 ONCE, 1 Medical 75 mcg dose, On Branch Tue06/22/22 at 1430, STAT metoclopram 2022-0 2022- No 10mg 10 mg, Uni vers [...] Indication s: acute pain methylPREDN 2022-0 Yes [id number] Take by [facility] [employer] 06-22 mouth ity of mg tablets 00:00: SEE-INSTRU [place] 00 CTIONS. Medical follow Branch package directions traMADoL 50 2022-0 Yes [id number] 50mg Take 1 Univ ers mg tablet 3-07 tablet by ity o f 00:00: mouth [place] 00 every 6 Medical (six) Branch hours as needed for Pain (scale 4-6). Indication s: acute pain methylPREDN 2022-0 Yes [id number] Take by [facility] [employer] 4 06-22 mouth ity of mg tablets 00:00: SEE-INSTRU [place] 00 CTIONS. Medical follow Branch package directions traMADoL 50 2022-0 Yes [id number] 50mg Take 1 Univ ers mg tablet 3-07 tablet by ity o f 00:00: mouth [place] 00 every 6 Medical (six) Branch hours as needed for Pain (scale 4-6). Indication s: acute pain methylPREDN 3-0 Yes [id number] Take by [employer] 4 06-22 mouth ity of mg tablets 00:00: SEE-INSTRU [place] 00 CTIONS. Medical follow Branch package directions traMADoL 50 2022-0 Yes [id number] 50mg Take 1 Univ ers mg tablet 3-07 tablet by ity o f 00:00: mouth [place] 00 every 6 Medical (six) Branch hours as needed for Pain (scale 4-6). Indication s: acute pain methylPREDN 3-0 Yes [id number] Take by [facility] ISolone 4 06-22 mouth ity of mg tablets 00:00: SEE-INSTRU [place] 00 CTIONS. Medical follow Branch package directions traMADoL 50 2022-0 Yes [id number] 50mg Take 1 Univ ers mg tablet 3-07 tablet by ity o f 00:00: mouth [place] 00 every 6 Medical (six) Branch hours as needed for Pain (scale 4-6). Indication s: acute pain methylPREDN 3-0 Yes [id number] Take by [facility] ISolone 4 06-22 mouth [...] 4-6). Indication s: acute pain methylPREDN 3-0 2022- No [id number] Take by [facility] [employer] 4 06-22- [id number] mouth ity of mg tablets 00:00: 00:00 SEE-INSTRU [place] 00 :00 CTIONS. Medical follow Branch package directions methylPREDN 2022-0 2022- No [id number] Take by [facility] 4 06-22 mouth ity of mg tablets 00:00: 00:00 SEE-INSTRU [place] 00 :00 CTIONS. Medical follow Branch package directions methylPREDN 2022- No [id number] Take by [facility] [place] 4 06-22 mouth ity of mg tablets 00:00: 00:00 SEE-INSTRU [place] 00 :00 CTIONS. Medical follow Branch package directions methylPREDN 2022- No [id number] [facility] ity of mg tablets [...] Muscle Medical Spasms. Branch solifenacin 2022- No [id number] 10mg Take 1 [facility] (VESICARE) 05-19 tablet by ity of 10 mg 00:00: 05:59 mouth in [place] tablet 00 :00 the Medical morning Branch for 30 days. solifenacin 2022-2022- No [id number] 10mg Take 1 [facility] (VESICARE) 05-19 tablet by ity of 10 mg 00:00: 05:59 mouth in [place] tablet 00 :00 the Medical morning Branch for 30 days. solifenacin 2022- No [id number] 10mg Take 1 [facility] (VESICARE) 05-19 tablet by ity of 10 mg 00:00: 05:59 mouth in [place] tablet 00 :00 the Medical morning Branch for 30 days. fluconazole 2022-3- No [id number] 150mg Take 1 [facility] (DIFLUCAN) 05-18 tablet [...] Muscle Medical Spasms. Branch fluconazole 2021-04- No [id number] 150mg Take 1 [facility] (DIFLUCAN) 2-13 tablet by ity of 150 mg 00:00: 05:59 mouth [place] tablet 00 :00 now for 1 Medical dose. Branch fluconazole 2021-04- No [id number] 150mg Take 1 [facility] (DIFLUCAN) 05-30-13 tablet by ity of 150 mg 00:00: 05:59 mouth [place] tablet 00 :00 now for 1 Medical dose. Branch fluconazole 2021-04- No [id number] 150mg Take 1 [facility] (DIFLUCAN) 05-30-13 tablet by ity of 150 mg 00:00: 05:59 mouth [place] tablet 00 :00 now for 1 Medical dose. Branch ampicillin 2021-04- No [id number] 500mg Take 1 [facility] 500 mg 2-02 27-19 capsule by ity of capsule 00:00: 05:59 mouth [place] 00 :00 every 6 Medical (six) Branch hours for 7 days. ampicillin 2021-04- No [id number] 500mg Take 1 [facility] 500 mg 2- 12-19 capsule by ity of capsule 00:00: 05:59 mouth [place] 00 :00 every 6 Medical (six) Branch hours for 7 days. ampicillin 2021-04- No [id number] 500mg Take 1 [facility] 500 mg 2- 12-19 capsule by ity of capsule 00:00: 05:59 mouth [place] 00 :00 every 6 Medical (six) Branch hours for 7 days. ampicillin 2021-04- No [id number] 500mg Take 1 [facility] 500 mg 2- 12-19 capsule by ity of capsule 00:00: 05:59 mouth [place] 00 :00 every 6 Medical (six) Branch hours for 7 days. ampicillin 2021-04- No [id number] 500mg Take 1 [facility] 500 mg 05-29 capsule by ity of capsule 00:00: 05:59 mouth [place] 00 :00 every 6 Medical (six) Branch hours for 7 days. ampicillin 2021-04- No [id number] 500mg Take 1 [facility] 500 mg 05-29 capsule by ity of capsule 00:00: 05:59 mouth [place] 00 :00 every 6 Medical (six) Branch hours for 7 days. triamcinolo 2021-04- No [id number] 40mg Univers ne 04-28 ity of acetonide 20:15: 19:31 [place] (KENALOG) 00 :00 Medical injection Branch 40 mg triamcinolo 2021-04- No [id number] 40mg 40 mg, Univers ne 04-28 Intramuscu ity of acetonide 20:15: 19:31 lar, ONCE, [place] (KENALOG) 00 :00 1 dose, On Medi suleiman injection Fri Branch 40 mg 02/26/22 at 1415, Routine triamcinolo 2021-04- No [id number] 40mg Univers ne 04-28 ity of acetonide 20:15: 19:31 [place] (KENALOG) 00 :00 Medical injection Branch 40 mg triamcinolo 2021-04- No [id number] 40mg 40 mg, Univers ne 04-28 Intramuscu ity of acetonide 20:15: 19:31 lar, ONCE, [place] (KENALOG) 00 :00 1 dose, On Medi suleiman injection Fri Branch 40 mg 02/26/22 at 1415, Routine triamcinolo 2021-04 Yes [id number] Apply to [facility] ne 1-11 area(s) 2 ity of acetonide 00:00: (two) [place] 0.1 % 00 times Medical ointment daily. Branch triamcinolo 2021-04 Yes [id number] Apply to [facility] ne 1-11 area(s) 2 ity of acetonide 00:00: (two) [place] 0.1 % 00 times Medical ointment daily. Branch triamcinolo 2021-04 Yes [id number] Apply to [facility] ne 1-11 area(s) 2 ity of acetonide 00:00: (two) [place] 0.1 % 00 times Medical ointment daily. Cesar marroquin 2021-04 Yes [id number] Apply to [facility] ne 1-11 area(s) 2 ity of acetonide 00:00: (two) [place] 0.1 % 00 times Medical ointment daily. [facility] 2021-04 Yes [id number] Apply to [facility] ne 1-11 area(s) 2 ity of acetonide 00:00: (two) [place] 0.1 % 00 times Medical ointment daily. [facility] 2021-04 Yes [id number] Apply to [facility] ne 1-11 area(s) 2 ity of acetonide 00:00: (two) [place] 0.1 % 00 times Medical ointment daily. [facility] 2021-04 Yes [id number] Apply to [facility] ne 1-11 area(s) 2 ity of acetonide 00:00: (two) [place] 0.1 % 00 times Medical ointment daily. [facility] 2021-04 Yes [id number] Apply to [facility] ne 1-11 area(s) 2 ity of acetonide 00:00: (two) [place] 0.1 % 00 times Medical ointment daily. [facility] 2021-04 Yes [id number] Apply to [facility] ne 1-11 area(s) 2 ity of acetonide 00:00: (two) [place] 0.1 % 00 times Medical ointment daily. [facility] 2021-04 Yes [id number] Apply to [facility] ne 1-11 area(s) 2 ity of acetonide 00:00: (two) [place] 0.1 % 00 times Medical ointment daily. [facility] 2021-04 Yes [id number] Apply to [facility] ne 1-11 area(s) 2 ity of acetonide 00:00: (two) [place] 0.1 % 00 times Medical ointment daily. [facility] 2021-043- No [id number] Apply to [facility] ne 1-11 01-30 area(s) 2 ity of acetonide 00:00: 00:00 (two) [place] 0.1 % 00 :00 times Medical ointment daily. Branch triamcinolo 2021-04- No [id number] Apply to [place] [facility] 04-28 area(s) 2 ity of acetonide 00:00: 00:00 (two) [place] 0.1 % 00 :00 times Medical ointment daily. Branch triamcinolo 2021-04- No [id number] Apply to [place] [facility] 04-28 area(s) 2 ity of acetonide 00:00: 00:00 (two) [place] 0.1 % 00 :00 times Medical ointment daily. Branch triamcinolo 2021-04- No [id number] Apply to [place] [facility] 04-28 area(s) 2 ity of acetonide 00:00: 00:00 (two) [place] 0.1 % 00 :00 times Medical ointment daily. Branch predniSONE 2021-04- No [id number] 40mg Take 2 [facility] 20 mg 04-28 tablets by ity of tablet 00:00: 05:59 mouth in [place] 00 :00 the Medical morning Branch for 5 days. predniSONE 2021-04- No [id number] 40mg Take 2 [facility] 20 mg 04-28 tablets by ity of tablet 00:00: 05:59 mouth in [place] 00 :00 the [facility] morning Branch for 5 days. metroNIDAZO 2021-04- No [id number] 500mg Take 1 [facility] LE (FLAGYL) 04-26 tablet by it y of 500 mg 00:00: 05:59 mouth [place] tablet 00 :00 every 12 Medical (twelve) Branch hours for 7 days. metroNIDAZO 2021-04- No [id number] 500mg Take 1 [facility] LE (FLAGYL) 04-26 tablet by it y of 500 mg 00:00: 05:59 mouth [place] tablet 00 :00 every 12 Medical (twelve) Branch hours for 7 days. metroNIDAZO 2021-04- No [id number] 500mg Take 1 [facility] LE (FLAGYL) 04-26 tablet by it y of 500 mg 00:00: 05:59 mouth [place] tablet 00 :00 every 12 Medical ([facility]) Branch hours for 7 days. fluconazole 2021-04- No [id number] 150mg Take 1 [facility] (DIFLUCAN) 04-26 tablet by ity of 150 mg 00:00: 05:59 mouth [place] tablet 00 :00 every 72 Medical (seventy-t Branch wo) hours for 2 doses. fluconazole 2021-04- No [id number] 150mg Take 1 Univers (DIFLUCAN) 04-26 tablet by ity of 150 mg 00:00: 05:59 mouth [place] tablet 00 :00 every 72 Medical (seventy-t Branch wo) hours for 2 doses. fluconazole 2021-04- No [id number] 150mg Take 1 Univers (DIFLUCAN) 04-26 tablet by ity of 150 mg 00:00: 05:59 mouth [place] tablet 00 :00 every 72 Medical (seventy-t Branch wo) hours for 2 doses. Nitrofurant 2021-04- No [id number] 100mg Take 1 Univers oin&Nit. 04-24-13 capsule by ity of [place] 00:00: 05:59 mouth in [place] (MACROBID) 00 :00 the Medical 100 mg morning Branch capsule and 1 capsule in the evening. Take with meals. Do all this for 5 days. Nitrofurant 2021-04- No [id number] 100mg Take 1 Univers oin&Nit. 04-24-13 capsule by ity of [place] 00:00: 05:59 mouth [place] (MACROBID[place] 00 :00 the Medical 100 mg morning Branch capsule and 1 capsule in the evening. Take with meals. Do all this for 5 days. Nitrofurant 2021-04- No [id number] 100mg Take 1 Univers oin&Nit. 04-24-13 capsule by ity of [place] 00:00: 05:59 mouth [place] (MACROBID[place] 00 :00 the Medical 100 mg morning Branch capsule and 1 capsule in the evening. Take with meals. Do all this for 5 days. Nitrofurant 2021-04- No [id number] 100mg Take 1 Univers oin&Nit. 04-24-13 capsule by ity of [place] 00:00: 05:59 mouth [place] (MACROBID) 00 :00 the Medical 100 mg morning Branch capsule and 1 capsule in the evening. Take with meals. Do all this for 5 days. Nitrofurant 2021-04- No [id number] 100mg Take 1 Univers oin&Nit. 04-24 capsule by ity of [place] 00:00: 05:59 mouth [place] (MACROBID) 00 :00 the Medical 100 mg morning Branch capsule and 1 capsule in the evening. Take with meals. Do all this for 5 days. simethicone 2021- No Take by Un shobha (GAS-X 10-28- mouth. ity of ORAL) 17:48: 00:00 [place] [...] mouth 3 ity of capsule 16:44: (three) [place] 32 times Medical daily. Branch acetaminoph 2021- No [id number] 650mg Take 2 Univers en 10-06 tablets by ity of (TYLENOL) 00:00: 00:00 mouth [place] 325 mg 00 :00 every 6 Medical tablet (six) Branch hours as needed for Pain (scale 1-3) or Pain (scale 4-6). simethicone 2021- No [id number] 80mg Take 1 Univers 80 mg 10-06 tablet by ity of chewable 00:00: 00:00 mouth [place] tablet 00 :00 after Medical meals and Branch at bedtime. ibuprofen 2021- No [id number] 600mg Take 1 Univers 600 mg 10-06 tablet by ity of tablet 00:00: 00:00 mouth [place] 00 :00 every 6 Medical (six) Branch hours as needed for Pain (scale 1-3) or Pain (scale 4-6). Vital Signs Vital Name Observation Time Observation Value Comments Source Respiratory rate 2023-01-03 18 /min [facility] 16:05:00 [facility] Body height 2023-01-03 157.5 cm University 16:05:00 [facility] Body weight 2023-01-03 87.317 kg University 16:05:00 [facility] BMI 2023-01-03 35.21 kg/m2 University 16:05:00 [place] [facility] Oxygen saturation 2023-01-03 100 /min [facility] in Arterial blood 16:05:00 [facility] by Pulse oximetry [place] Systolic blood 2023-01-03 125 mm[Hg] University of pressure 16:05:00 [place] [facility] Diastolic blood 2023-01-03 85 mm[Hg] University o f pressure 16:05:00 [facility] Heart rate 2023-01-03 76 /min [facility] 16:05:00 [facility] Body temperature 2023-01-03 36.33 Delfina University 16:05:00 [facility] Systolic blood 2022-12-17 118 mm[Hg] University of pressure 15:04:00 [place] [facility] Diastolic blood 2022-12-17 79 mm[Hg] University o f pressure 15:04:00 [facility] Heart rate 2022-12-17 78 /min [facility] 15:02:00 [facility] Body temperature 2022-12-17 37.11 Delfina University of 15:02:00 [facility] Branch Respiratory rate 2022-12-17 16 /min University of 15:02:00 [facility] Branch Body height 2022-12-17 157.5 cm University of 15:02:00 [place] [facility] Body weight 2022-12-17 86.32 kg University of 15:02:00 [facility] BMI 2022-12-17 34.81 kg/m2 University of 15:02:00 [place] [facility] Oxygen saturation 2022-12-17 98 /min University of in Arterial blood 15:02:00 [facility] suleiman by Pulse oximetry Branch Systolic blood 2022-11-16 118 mm[Hg] University of pressure 20:26:00 [facility] Branch Diastolic blood 2022-11-16 86 mm[Hg] University o f pressure 20:26:00 [facility] Heart rate 2022-11-16 91 /min University of 20:26:00 [place] [facility] Body temperature 2022-11-16 36.72 Delfina University of 20:26:00 [place] [facility] Respiratory rate 2022-11-16 16 /min University of 20:26:00 [facility] Body height 2022-11-16 157.5 cm University of 20:26:00 [facility] Body weight 2022-11-16 85.73 kg University of 20:26:00 [facility] BMI 2022-11-16 34.57 kg/m2 University of 20:26:00 [place] [facility] Oxygen saturation 2022-11-16 95 /min University of in Arterial blood 20:26:00 [facility] suleiman by Pulse oximetry Branch Systolic blood 2022-10-27 137 mm[Hg] University of pressure 15:27:00 [facility] Branch Diastolic blood 2022-10-27 85 mm[Hg] University o f pressure 15:27:00 [facility] Heart rate 2022-10-27 89 /min University of 15:27:00 [facility] Body temperature 2022-10-27 36.72 Delfina University of 15:27:00 [facility] Respiratory rate 2022-10-27 20 /min University of 15:27:00 [facility] Body height 2022-10-27 157.5 cm University of 15:27:00 [facility] Body weight 2022-10-27 85.872 kg University of 15:27:00 [facility] BMI 2022-10-27 34.63 kg/m2 University of 15:27:00 [facility] Branch Oxygen saturation 2022-10-27 100 /min University of in Arterial blood 15:27:00 [place] Medi suleiman by Pulse oximetry Branch Systolic blood 2022-10-16 124 mm[Hg] University of pressure 17:17:00 [facility] Diastolic blood 2022-10-16 83 mm[Hg] University o f pressure 17:17:00 [facility] Branch Heart rate 2022-10-16 73 /min University of 17:17:00 [place] [facility] Body temperature 2022-10-16 36.61 Delfina University of 17:17:00 [facility] Branch Respiratory rate 2022-10-16 20 /min University of 17:17:00 [place] [facility] Oxygen saturation 2022-10-16 97 /min University of in Arterial blood 17:17:00 [facility] suleiman by Pulse oximetry Branch Body height 2022-10-13 157.5 cm University of 01:28:00 [place] [facility] Body weight 2022-10-13 87.998 kg University of 01:28:00 [facility] BMI 2022-10-13 35.48 kg/m2 University of 01:28:00 [facility] Systolic blood 2022-08-10 131 mm[Hg] Provider University of pressure 14:11:00 notified [facility] Diastolic blood 2022-08-10 93 mm[Hg] Provider University o f pressure 14:11:00 notified [facility] Heart rate 2022-08-10 83 /min University of 14:11:00 [facility] Body temperature 2022-08-10 36.72 Delfina University of 14:10:00 [facility] Branch Respiratory rate 2022-08-10 18 /min University of 14:10:00 [facility] Body height 2022-08-10 157.5 cm University of 14:10:00 [facility] Body weight 2022-08-10 86.592 kg University of 14:10 [facility] BMI 2022-08-10 34.92 kg/m2 University of 14:10:00 [place] [facility] Oxygen saturation 2022-08-10 98 /min University of in Arterial blood 14:10:00 [place] Medi suleiman by Pulse oximetry Branch Systolic blood 2022-07-20 134 mm[Hg] University of pressure 20:35:00 [facility] Diastolic blood 2022-07-20 97 mm[Hg] University o f pressure 20:35:00 [place] [facility] Heart rate 2022-07-20 66 /min University of 20:24:00 [facility] Body temperature 2022-07-20 36.83 Delfina University of 20:24:00 [facility] Respiratory rate 2022-07-20 18 /min University of 20:24:00 [facility] Body height 2022-07-20 157.5 cm University of 20:24:00 [facility] Body weight 2022-07-20 85.73 kg University of 20:24:00 [facility] BMI 2022-07-20 34.57 kg/m2 University of 20:24:00 [place] [facility] Systolic blood 2022-07-06 121 mm[Hg] University of pressure 13:52:00 [place] [facility] Diastolic blood 2022-07-06 88 mm[Hg] University o f pressure 13:52:00 [place] [facility] Heart rate 2022-07-06 70 /min University of 13:52:00 [place] [facility] Body temperature 2022-07-06 36.28 Delfina University of 13:51:00 [place] [facility] Respiratory rate 2022-07-06 18 /min University of 13:51:00 [facility] Body height 2022-07-06 157.5 cm University of 13:51:00 [place] [facility] Body weight 2022-07-06 87 kg University of 13:51:00 [facility] BMI 2022-07-06 35.08 kg/m2 University of 13:51:00 [place] [facility] Oxygen saturation 2022-07-06 98 /min [facility] in Arterial blood 13:51:00 [facility] Pulse oximetry Branch Systolic blood 2022-06-25 130 mm[Hg] University of pressure 21:34:00 [place] [facility] Diastolic blood 2022-06-25 90 mm[Hg] University o f pressure 21:34:00 [place] [facility] Heart rate 2022-06-25 88 /min University of 21:34:00 [place] [facility] Body temperature 2022-06-25 36.83 Delfina University of 21:34:00 [place] [facility] Respiratory rate 2022-06-25 18 /min University of 21:34:00 [place] [facility] Body height 2022-06-25 157.5 cm University of 21:34:00 [place] [facility] Body weight 2022-06-25 86.637 kg University of 21:34:00 [facility] BMI 2022-06-25 34.93 kg/m2 University of 21:34:00 [place] [facility] Systolic blood 2022-06-22 118 mm[Hg] University of pressure 23:53:00 [place] [facility] Diastolic blood 2022-06-22 89 mm[Hg] University o f pressure 23:53:00 [facility] Heart rate 2022-06-22 74 /min University of 23:53:00 [place] [facility] Respiratory rate 2022-06-22 16 /min University of 23:53:00 [place] [facility] Oxygen saturation 2022-06-22 98 /min University of in Arterial blood 23:53:00 [place] Medi suleiman by Pulse oximetry Branch Body temperature 2022-06-22 37.22 Delfina University of 18:35:00 [facility] Body height 2022-06-22 157.5 cm University of 18:35:00 [facility] Body weight 2022-06-22 87.091 kg University of 18:35:00 [facility] BMI 2022-06-22 35.12 kg/m2 University of 18:35:00 [facility] Systolic blood 2022-06-22 137 mm[Hg] University of pressure 18:17:00 [facility] Diastolic blood 2022-06-22 102 mm[Hg] University o f pressure 18:17:00 [facility] Heart rate 2022-06-22 80 /min University of 18:15:00 [facility] Body temperature 2022-06-22 37.11 Delfina University of 18:15:00 [facility] Respiratory rate 2022-06-22 16 /min University of 18:15:00 [facility] Body height 2022-06-22 157.5 cm University of 18:15:00 [place] [facility] Body weight 2022-06-22 87.363 kg University of 18:15:00 [facility] BMI 2022-06-22 35.23 kg/m2 University of 18:15:00 [place] [facility] Oxygen saturation 2022-06-22 97 /min University of in Arterial blood 18:15:00 [place] Medi suleiman by Pulse oximetry Branch Systolic blood 2022-05-17 123 mm[Hg] University of pressure 22:01:00 [place] [facility] Diastolic blood 2022-05-17 85 mm[Hg] University o f pressure 22:01:00 [place] [facility] Heart rate 2022-05-17 70 /min University of 22:01:00 [place] [facility] Body temperature 2022-05-17 36.78 Delfina University of 22:01:00 [place] [facility] Respiratory rate 2022-05-17 18 /min University of 22:01:00 [facility] Body height 2022-05-17 157.5 cm University of ::00 [place] [facility] Body weight 2022-05-17 89.359 kg University of 22::00 [facility] BMI 2022-05-17 36.03 kg/m2 University of 22:01:00 [place] [facility] Systolic blood 2022-05-11 123 mm[Hg] University of pressure 21:59:00 [place] [facility] Diastolic blood 2022-05-11 88 mm[Hg] University o f pressure 21:59:00 [place] [facility] Heart rate 2022-05-11 69 /min University of 21:59:00 [place] [facility] Body temperature 2022-05-11 37.44 Delfina University of 21:59:00 [place] [facility] Respiratory rate 2022-05-11 16 /min University of 21:59:00 [place] [facility] Body height 2022-05-11 157.5 cm University of 21:59:00 [place] [facility] Body weight 2022-05-11 88.406 kg University of 21:59:00 [place] [facility] BMI 2022-05-11 35.65 kg/m2 University of 21:59:00 [place] [facility] Oxygen saturation 2022-05-11 99 /min [facility] in Arterial blood 21:59:00 [facility] Pulse oximetry [place] Systolic blood 2022-03-25 125 mm[Hg] University of pressure 18:55:00 [place] [facility] Diastolic blood 2022-03-25 90 mm[Hg] University o f pressure 18:55:00 [place] [facility] Heart rate 2022-03-25 74 /min University of 18:55:00 [place] [facility] Body temperature 2022-03-25 37.11 Delfina University of 18:55:00 [place] [facility] Respiratory rate 2022-03-25 18 /min University of 18:55:00 [place] [facility] Body height 2022-03-25 157.5 cm University of 18:55:00 [place] [facility] Body weight 2022-03-25 88.179 kg University of 18:55:00 [facility] Branch BMI 2022-03-25 35.56 kg/m2 University of 18:55:00 [facility] Branch Oxygen saturation 2022-03-25 98 /min University of in Arterial blood 18:55:00 [place] Medi suleiman by Pulse oximetry Branch Systolic blood 2022-02-26 134 mm[Hg] University of pressure 19:18:00 [facility] Branch Diastolic blood 2022-02-26 87 mm[Hg] University o f pressure 19:18:00 [facility] Branch Heart rate 2022-02-26 82 /min University of 19:18:00 [place] [facility] Body temperature 2022-02-26 37.11 Delfina University of 19:18:00 [facility] Branch Respiratory rate 2022-02-26 16 /min University of 19:18:00 [place] [facility] Body height 2022-02-26 160 cm University of 19:18:00 [facility] Body weight 2022-02-26 90.266 kg University of 19:18:00 [facility] BMI 2022-02-26 35.25 kg/m2 University of 19:18:00 [place] [facility] Oxygen saturation 2022-02-26 98 /min University of in Arterial blood 19:18:00 [facility] suleiman by Pulse oximetry Branch Systolic blood 2022-02-22 134 mm[Hg] University of pressure 22:48:00 [facility] Branch Diastolic blood 2022-02-22 84 mm[Hg] University o f pressure 22:48:00 [place] [facility] Heart rate 2022-02-22 88 /min University of 22:48:00 [place] [facility] Body temperature 2022-02-22 37.22 Delfina University of 22:48:00 [facility] Branch Respiratory rate 2022-02-22 16 /min University of 22:48:00 [place] [facility] Body height 2022-02-22 160 cm University of 22:48:00 [facility] Body weight 2022-02-22 90.311 kg University of 22:48:00 [facility] BMI 2022-02-22 35.27 kg/m2 University of 22:48:00 [facility] Branch Oxygen saturation 2022-02-22 98 /min University of in Arterial blood 22:48:00 [place] Medi suleiman by Pulse oximetry Branch Systolic blood 2022-01-13 129 mm[Hg] University of pressure 19:07:00 [place] [facility] Diastolic blood 2022-01-13 89 mm[Hg] University o f pressure 19:07:00 [place] [facility] Heart rate 2022-01-13 80 /min University of 19:07:00 [place] [facility] Body temperature 2022-01-13 36.83 Delfina University of 19:07:00 [place] [facility] Respiratory rate 2022-01-13 18 /min University of 19:07:00 [facility] Body height 2022-01-13 157.5 cm University of 19:07:00 [place] [facility] Body weight 2022-01-13 88.996 kg University of 19:07:00 [facility] BMI 2022-01-13 35.89 kg/m2 University of 19:07:00 [place] [facility] Systolic blood 2021-10-28 121 mm[Hg] University of pressure 15:36:00 [place] [facility] Diastolic blood 2021-10-28 81 mm[Hg] [place] o pressure 15:36:00 [facility] Heart rate 2021-10-28 73 /min [facility] 15:35:00 [facility] Body temperature 2021-10-28 37.22 Delfina University 15:35:00 [facility] Body weight 2021-10-28 86.183 kg [facility] 15:35:00 [facility] BMI 2021-10-28 34.74 kg/m2 [facility] 15:35:00 [facility] Procedures Procedure Date / Time Performing Clinician Source Performed POCT MOLECULAR STREP 2023-01-03 16:10:00 Unknown, Attending [facility] POCT SARS-COV-2 ANTIGEN 2023-01-03 16:09:00 Steffany Zapata [facility] ([facility] NOW) [facility] POCT TEST 2022-12-17 15:13:00 [facility] 2022-12-17 15:10[facility]00 [facility] 2022-10-27 15:54:00 [facility] URINE CULTURE 2022-10-27 15:40:00 [facility] EXTERNAL PROVIDER RECORDS 2022-10-26 05:01:00 Doctor Unassigned, [facility] [place] [facility] MAGNESIUM 2022-10-14 05:15:00 Sami [facility] BASIC METABOLIC PANEL 2022-10-14 05:15:00 Sami [facility] (NA, K, CL, CO2, GLUCOSE, [place] [facility] BUN, CREATININE, CA) CBC WITH DIFF 2022-10-14 05:15:00 Sami [facility] XR SMALL BOWEL SERIES 2022-10-13 21:22:00 Sami [facility] BASIC METABOLIC PANEL 2022-10-13 11:42:00 Sami [facility] (NA, K, CL, CO2, GLUCOSE, [place] BUN, CREATININE, CA) CBC WITH DIFF 2022-10-13 11:42:00 Sami [facility] BASIC METABOLIC PANEL 2022-10-12 20:34:00 Sami [facility] (NA, K, CL, CO2, GLUCOSE, [place] BUN, CREATININE, CA) CBC WITH DIFF 2022-10-12 20:34:00 Sami [facility] XR KUB 2022-10-12 19:50:00 Koryrohini [facility] EXTERNAL PROVIDER RECORDS 2022-07-21 05:01:00 Doctor Unassigned, [facility] [place] MEDICATION CORRESPONDENCE 2022-07-01 05:01:00 Doctor Unassigned, [facility] URINALYSIS MICROSCOPIC 2022-06-25 22:26:00 Chacha Gomez [facility] URINE CULTURE 2022-06-25 21:56:00 Chacha Gomez [facility] POCT URINALYSIS W/O 2022-06-25 00:00:00 Chacha Gomez [facility] SPECIFIC GRAVITY [facility] Branch CT ABDOMEN PELVIS W 2022-06-22 21:03:00 Elijah Hernandez [facility] CONTRAST Medical Branch LIPASE 2022-06-22 19:30:00 Elijah Hernandez [facility] COMP. METABOLIC PANEL 2022-06-22 19:30:00 Elijah Hernandez [facility] ([id number]) [facility] CBC WITH DIFF 2022-06-22 19:30:00 David Elijah [facility] LACTIC ACID WHOLE BLOOD 2022-06-22 19:29:00 Elijah Hernandez [facility] POCT TEST 2022-06-22 19:20:00 Elijah Hernandez [facility] URINALYSIS 2022-06-22 19:17:00 David Elijah [facility] CONSENT/REFUSAL FOR 2022-06-22 18:28:14 Doctor Unassigned, [facility] CONSENT/REFUSAL FOR 2022-05-21 21:51:33 Doctor Unassigned, [facility] DIAGNOSIS AND TREATMENT [facility] PATIENT QUESTIONNAIRE 2022-05-19 06:01:00 Doctor Unassigned, [facility] [place] [facility] POCT URINALYSIS W/O 2022-05-17 00:00:00 Zully Holt [facility] SPECIFIC GRAVITY [facility] POCT TEST 2022-03-25 20:00:00 Faith [facility] URINE CULTURE 2022-03-25 19:22:00 Faith [facility] GC, CHLAMYDIA, & M. 2022-03-25 19:22:00 Faith [facility] GENITALIUM AMPLIFIED [facility] ASSAY GALV ONLY - VAGINAL 2022-03-25 19:22:00 Faith [facility] PATHOGENS BY NUCLEIC ACID Medica l [place] TESTING POCT URINALYSIS 2022-03-25 19:02:00 Faith [facility] GC & CHLAMYDIA AMPLIFIED 2022-02-22 23:07:00 Rosa Erazo [facility] ASSAY [facility] Branch GALV ONLY - VAGINAL 2022-02-22 23:07:00 Rosa Erazo [facility] PATHOGENS BY NUCLEIC ACID Medica l Branch TESTING POCT URINALYSIS 2022-02-22 22:54:00 Benny Steffany [facility] URINE CULTURE 2022-02-22 22:49:00 [facility] AUTHORIZATION FOR RELEASE 2022-01-19 05:01:00 Doctor Unassigned, [facility] [place] [facility] AUTHORIZATION FOR RELEASE 2021-12-22 05:01:00 Doctor Unassigned, [facility] [place] [facility] AUTHORIZATION FOR RELEASE 2021-12-14 05:01:00 Doctor Unassigned, [facility] [place] [facility] Encounters Start End Encounter Admission Attending Care Care Encounter Source Date/Time Date/Time Type Type Clinicians Facility Department ID 2023-01-03 2023-01-03 Urgent Steffany Zapata [facility] [id number] Univers 10:00:00 10:20:00 Care Unknown, Attending HEALTH [id number] ity [facility] [id number] [place] as VLADIMIR?BLEA [id number] [address] MEDICAL OFFICE BUILDING 2023-01-03 2023-01-03 [facility] [id number] Univers 10:00:00 10:00:00 STEFFANY [facility] 2022-12-17 2022-12-17 [facility] [id number] Univers 09:20:00 10:13:43 WILLIAMS [facility] [facility] 2022-12-17 2022-12-17 [facility] .2.840.11 4 [id number] Univers 09:20:00 10:13:43 Care Unknown, Attending HEALTH 350.1.13.10 ity [facility] 4.2.7.2.686 [place] as VLADIMIR?BLEA [id number] [address] MEDICAL OFFICE BUILDING 2022-12-09 2022-12-09 Outpatient R [facility] [id number] Univers 16:00:00 16:00:00 [facility] 2022-12-09 2022-12-09 Outpatient R [facility] [id number] Univers 09:00:00 09:00:00 ity of [facility] 2022-12-01 2022-12-01 Outpatient R LELO [facility] [id number] Univers 11:00:00 11:00:00 GALINA ity o f [facility] 2022-11-16 2022-11-16 Office Josey oKch [facility] 1.2.840.114 10 [id number] Univers 15:00:00 15:15:00 Visit HEALTH 350.1.13.10 it y of [place] [id number] [address] OFFICE BUILDING 2022-11-16 2022-11-16 Outpatient R JOSEY KOCH [facility] [id number] Univers 15:00:00 15:00:00 ity of [facility] 2022-10-27 2022-10-27 Outpatient R BENNY [facility] [id number] Univers 10:20:00 10:57:51 STEFFANY ity of [facility] 2022-10-27 2022-10-27 Urgent Steffany Zapata [facility] 1.2.840.114 1 [id number] Univers 10:20:00 10:57:51 Care Unknown, Attending HEALTH 350.1.13.10 ity of [place] 4.2.7.2.686 [place] as VLADIMIR?BLEA [id number] Nh dical [facility] [address] MEDICAL OFFICE BUILDING 2022-10-26 2022-10-26 Orders Doctor PHILL 1.2.840.114 [id number] Univers 00:00:00 00:00:00 Only Unassigned, COLEMAN 350.1.13.10 ity of [place] [facility] 4.2.7.2.686 [place] as [phone] [facility] [address] 2022-10-18 2022-10-18 Transition CARMEN Rob 1.2.840.114 [id number] Univers 00:00:00 00:00:00 of Care Petra WALTERS 350.1.13.10 i ty of [place] [id number] [facility] [address] 2022-10-12 2022-10-16 Inpatient U JOSEY OKCH [facility] [place] [id number] Univers 13:23:00 13:30:00 ity of [facility] 2022-10-12 2022-10-16 Hospital Josey Koch 1.2.840.114 1 [id number] Univers 13:23:00 13:30:00 Encounter COLEMAN 350.1.13.10 ity of [facility] 4.2.7.2.686 [place] as [id number] [facility] [address] 2022-10-12 2022-10-12 Telephone Josey Koch [facility] 1.2.840.114 [id number] Univers 00:00:00 00:00:00 HEALTH 350.1.13.10 it y of [place] [id number] [address] OFFICE BUILDING 2022-10-11 2022-10-11 Outpatient R SAWYER [facility] [id number] Univers 10:20:00 10:20:00 ATTENDING ity of [facility] 2022-08-10 2022-08-10 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 10 ity of CL[place] [id number] [facility] [address] 2022-08-10 2022-08-10 Outpatient R FLAQUITA [facility] [id number] Univers 09:00:00 09:38:50 ANGEL mata [facility] 2022-08-10 2022-08-10 Office Aneta Joseph [facility] 1.2.840.114 [id number] Univers 09:00:00 09:38:50 Visit Angel Sams HEALTH 350.1.13. 10 ity of [place] [id number] [facility] [address] 2022-08-06 2022-08-06 Telemedici [facility] 1.2.840.114 10 [id number] Univers 16:30:00 17:00:00 ne Visit Chacha GUTIÉRREZ 350.1.13.10 ity of [place] [id number] Nh dical NAL 098 [facility] 2022-08-06 2022-08-06 Outpatient R CHACHA GOMEZ [facility] [id number] Univers 16:30:00 16:30:00 CHACHA GOMEZ olivier [facility] 2022-07-21 2022-07-21 Outpatient R LELO [facility] [id number] Univers 13:00:00 13:00:00 GALINA snyder f [facility] 2022-07-21 2022-07-21 Orders Doctor PHILL 1.2.840.114 [id number] Univers 00:00:00 00:00:00 Only UnassignedCOLEMAN 350.1.13.10 ity of [facility] 4.2.7.2.686 [place] as [id number] [facility] [address] 2022-07-20 2022-07-20 Outpatient R LILIYA PATEL [facility] U TMB [id number] Univers 15:15:00 15:47:52 LILIYA PATEL ity [facility] 2022-07-20 2022-07-20 Office Cristina [facility] 1.2.840.114 10 [id number] Univers 15:15:00 15:47:52 Visit sLiliya 350.1.13.10 ity [facility] [place].2.[place].2.[place] [phone] Nh dical NAL 134 [facility] 2022-07-20 2022-07-20 Telephone CLEMENTE Joseph 1.2.840.114 10 [id number] Univers 00:00:00 00:00:00 Aneta Navarrete HEALTH 350.1.13.10 i ty of [facility] [place].2.[place] [phone] [facility] [address] 2022-07-16 2022-07-16 Telephone PHILL Joseph 1.2.254.820 [id number] Univers 00:00:00 00:00:00 Aneta GIBSON 350.1.13.10 it y of [facility] [place].2.7.2.686 [place] [id number] [facility] [address] 2022-07-08 2022-07-08 Outpatient R YANET [facility] [id number] Univers 13:30:00 13:30:00 ZULLY mata [facility] 2022-07-06 2022-07-06 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 10 ity of CL[place] [id number] [facility] [address] [place] 2022-07-06 2022-07-06 Office Aneta Joseph [facility] 1.2.840.114 [id number] Univers 09:00:00 09:30:00 Visit Flaquita Angel Almeida [facility] 350.1.13. 10 ity of [place] [id number] [place] [address] [place] 2022-07-06 2022-07-06 Outpatient R FLAQUITA [facility] [id number] Univers 09:00:00 09:00:00 ANGEL olivier [facility] 2022-07-06 2022-07-06 Telephone [facility] 1.2.840.114 101 [id number] Univers 00:00:00 00:00:00 Chacha GUTIÉRREZ 350.1.13.10 i ty of [facility] 4.2.7.2.[place] [phone] [facility] 098 [facility] 2022-07-06 2022-07-06 Telephone Joseph, [facility] [place] 1.2.840.114 10 [id number] Univers 00:00:00 00:00:00 [facility] 350.1.13.10 i ty of [facility] [place].2.[place] [id number] [place] [address] [place] 2022-07-06 2022-07-06 Telephone Joseph, [facility] [place] 1.2.840.114 10 [id number] Univers 00:00:00 00:00:00 Aneta Y HEALTH 350.1.13.10 i ty of [place] CLINICS [place].2.[place] [id number] [place] [address] [place] 2022-07-06 2022-07-06 Telephone Jake SHWETAKIMO 1.2.840.114 10 [id number] Univers 00:00:00 00:00:00 Aneta Navarrete [facility] 350.1.13.10 i ty of [facility] 4.2.7.2.686 [place] [id number] [place] [address] [place] 2022-07-02 2022-07-02 Outpatient R JULIUS PATELSOL [facility] U TMB [id number] Univers 15:00:00 15:00:00 ANGELJEFE [facility] 2022-07-01 2022-07-01 Telephone [facility] 1.2.840.114 [id number] Univers 00:00:00 00:00:00 Chacha GUTIÉRREZ 350.1.13.10 i ty of [place] 4.2.[place].2.[place] [phone] Nh dical NAL 8 [facility] 2022-07-01 2022-07-01 Orders Doctor PHILL 1.2.840.114 [id number] Univers 00:00:00 00:00:00 Only Unassigned, COLEMAN 350.1.13.10 ity of [place] [facility] 4.2.7.2.686 [place] as [phone] [address] 2022-06-25 2022-06-25 Outpatient R CHACHA GOMEZ [facility] [id number] Univers 15:30:00 16:28:47 CHACHA GOMEZ [facility] 2022-06-25 2022-06-25 Office [facility] 1.2.840.114 [id number] Univers 15:30:00 16:28:47 Visit Chacha GUTIÉRREZ 350.1.13.10 i ty of [place] 4.2.7.2.[place] [id number] Nh dical NAL 098 [facility] 2022-06-22 2022-06-22 Emergency X DAVID [facility] ERT [id number] Univers 12:41:00 20:34:00 ELIJAH mata [facility] 2022-06-22 2022-06-22 [facility] 1.2.321.972 [id number] Univers 12:41:00 20:34:00 Elijah GUTIÉRREZ 350.1.13.10 i ty of [place] 4.2.7.2.[place] [id number] [facility] [address] [place] 2022-06-22 2022-06-22 Nurse Nurse, [facility] 1.2.840.114 [id number] Univers 12:15:00 12:41:54 Visit Unknown, Attending HEALTH 350.1.13.10 ity of Steffany Zapata 4.2.7.2.686 [facility] [id number] Nh gilberto GO [address] MEDICAL OFFICE BUILDING 2022-06-22 2022-06-22 Outpatient R SAWYER [facility] [id number] Univers 12:20:00 12:20:00 ATTENDING itolivier [facility] 2022-06-22 2022-06-22 Outpatient R BENNY [facility] [id number] Univers 12:15:00 12:15:00 STEFFANY [facility] 2022-06-22 2022-06-22 Orders Doctor PHILL 1.2.840.114 [id number] Univers 00:00:00 00:00:00 Only Unassigned, COLEMAN 350.1.13.10 ity of [place] [facility] 4.2.7.2.686 [place] [id number] [facility] [address] [place] 2022-06-03 2022-06-03 Outpatient R YANET [facility] [id number] Univers 14:00:00 14:00:00 ZULLY mata [facility] 2022-05-24 2022-05-24 [facility] 1.2.840.114 10 [id number] Univers 00:00:00 00:00:00 Zully GUTIÉRREZ 350.1.13.10 i ty of [place] 4.2.7.2.686 [facility] [id number] Nh gilberto BURGER [address] BUILDING 2022-05-21 2022-05-21 Outpatient R YANET [facility] [id number] Univers 15:51:32 23:59:00 ZULLY esperanza [facility] 2022-05-21 2022-05-21 Hospital Yanet [facility] 1.2.840.114 100 [id number] Univers 15:45:00 23:59:00 Encounter Zully GUTIÉRREZ 350.1.13.10 ity of [place]2.7.2.[place] C[place] [id number] [facility] [address] 2022-05-19 2022-05-19 Outpatient R CHUN [facility] [id number] Univers 10:00:00 11:06:31 CHACHA esperanza [facility] 2022-05-19 2022-05-19 Telephone Yanet [facility] 1.2.840.114 10 [id number] Univers 00:00:00 00:00:00 Zully GUTIÉRREZ 350.1.13.10 i ty of [facility] 4.2.7.2.[place] [phone] Nh dical [facility] [address] [facility] 2022-05-19 2022-05-19 Orders Doctor PHILL 1.2.840.114 [id number] Univers 00:00:00 00:00:00 Only Unassigned, COLEMAN 350.1.13.10 ity of [place] [facility] 4.2.7.2.686 [place] as [phone] [facility] [address] 2022-05-18 2022-05-18 Case KASIA Holt 1.2.017.144 [id number] Univers 00:00:00 00:00:00 Management Zully PEDIATRIC 350.1.13.10 ity of [place].2.[place] ADULT [id number] [facility] PRIMARY [address] CARE CLINIC 2022-05-17 2022-05-17 Outpatient R YANET [facility] [id number] Univers 16:00:00 16:38:57 ZULLY mata [facility] 2022-05-17 2022-05-17 [facility] 1.2.763.156 [id number] Univers 16:00:00 16:38:57 Visit Zully GUTIÉRREZ 350.1.13.10 i ty of [facility] 4.2.7.2.686 [place] [phone] Nh dical NAL 134 [facility] 2022-05-11 2022-05-11 Office Josey Koch [facility] 1.2.840.114 10 [id number] Univers 16:30:00 16:45:00 Visit HEALTH 350.1.13.10 it y of [place]2.[place] [id number] [address] OFFICE BUILDING 2022-05-11 2022-05-11 Outpatient R JOSEY KOCH [facility] [id number] Univers 16:30:00 16:30:00 ity of [facility] 2022-05-05 2022-05-05 Telephone Henrietta Santos [facility] 1.2.840.114 [id number] Univers 00:00:00 00:00:00 Cam [place] 350.1.13.10 i ty of [place] 4.2.7.2.[place] [id number] Nh dic[address] 2022-04-27 2022-04-27 Outpatient R JOSEY KOCH [facility] [id number] Univers 14:00:00 14:00:00 ity of [facility] 2022-04-06 2022-04-06 Outpatient JOSEY AWAD [facility] [id number] Univers 08:45:00 08:45:00 ity of [facility] 2022-03-28 2022-03-28 Patient Yaronfritzkentrell [facility] 1.2.840.114 [id number] Univers 00:00:00 00:00:00 Secure Msg Rania HEALTH 350.1.13.10 ity of [place] 4.2.7.2.686 Golden as VLADIMIR?BLEA [id number] Nh dicdaniel GO [address] [facility] OFFICE BUILDING 2022-03-25 2022-03-25 Furniture Installer Lab, Dick - Edu [facility] 1.2.840.1 14 [id number] Univers 13:30:00 13:45:00 Visit Faith Rania HEALTH 350.1.13.10 ity of [place] 4.2.7.2.686 Golden as VLADIMIR?BLEA [id number] Nh dicdaniel [address] [place] MEDICAL OFFICE BUILDING 2022-03-25 2022-03-25 Outpatient R FAITH, [facility] [id number] Univers 12:40:00 13:23:47 MARA mata [facility] 2022-03-25 2022-03-25 Urgent Mara Cuevas [facility] 1.2.840.114 [id number] Univers 12:40:00 13:23:47 Care Unknown, Attending HEALTH 350.1.13.10 ity of [place] 4.2.7.2.686 Golden as VLADIMIR?BLEA [phone] Nh gilberto [address] OFFICE [facility] 2022-03-25 2022-03-25 Patient Camachofritzkentrell [facility] 1.2.840.114 [id number] Univers 00:00:00 00:00:00 Secure [facility] 350.1.13.10 ity of [place] 4.2.7.2.686 [place] as VLADIMIR?BLEA [id number] [facility] [address] OFFICE [facility] 2022-03-24 2022-03-24 Outpatient R UNKNOWN, [facility] [id number] Univers 17:20:00 17:20:00 ATTENDING itolivier [facility] 2022-02-26 2022-02-26 Outpatient R JEEVAN [facility] [id number] Univers 13:00:00 13:40:20 LORENZA mata o braeden [facility] 2022-02-26 2022-02-26 Urgent Lorenza Chew [facility] 1.2.840 .114 [id number] Univers 13:00:00 13:40:20 Care Unknown, Attending HEALTH [facility].1.13.10 ity of [facility] 4.2.7.2.686 [place] as VLADIMIR?BLEA [phone] [address] OFFICE [facility] 2022-02-22 2022-02-22 Outpatient R ROSEMARY, [facility] [id number] Univers 16:40:00 17:15:39 ROSA mata o f [facility] 2022-02-22 2022-02-22 Urgent Rosa Erazo [facility] 1.2.840. 114 [id number] Univers 16:40:00 17:15:39 Care Unknown, Attending HEALTH 350.1.13.10 ity of [facility] 4.2.7.2.686 [place] as VLADIMIR?BLEA [phone] Nh gilberto [facility] [address] [place] MEDICAL OFFICE [facility] 2022-01-19 2022-01-19 Orders Doctor PHILL 1.2.840.114 [id number] Univers 00:00:00 00:00:00 Only Unassigned, COLEMAN 350.1.13.10 ity of [place] [facility] 4.2.7.2.686 [place] as [phone] [address] 2022-01-13 2022-01-13 Furniture Installer 2, Adc Lab [facility] 1.2.840.114 [id number] Univers 15:00:00 15:15:00 Visit Henrietta Santos 350.1.13.10 ity of [facility] 4.2.7.2.[place] [phone] Nh geedaniel JENNYFER 353 [facility] 2022-01-13 2022-01-13 Office Henrietta Santos [facility] 1.2.786.867 [id number] Univers 14:30:00 14:30:00 Visit Edis GUTIÉRREZ 350.1.13.10 i ty of [place] 4.2.[place].2.[place] [id number] Nh gilberto BURGER 134 [facility] 2022-01-13 2022-01-13 Outpatient R HENRIETTA SANTOS [facility] [id number] Univers 14:30:00 14:19:51 ity [facility] 2022-01-05 2022-01-05 Outpatient Davion MISHRA [facility] [id number] Univers 09:10:00 09:10:00 LOKESH itolivier [facility] 2021-12-28 2021-12-28 Outpatient Davion PARKER [facility] [id number] Univers 15:00:00 15:00:00 AMANDA deras [facility] 2021-12-28 2021-12-28 Outpatient Davion PARKER [facility] [id number] Univers 15:00:00 15:00:00 AMANDA deras [facility] 2021-12-28 2021-12-28 Outpatient R PARKER [facility] [id number] Univers 15:00:00 15:00:00 AMANDA ity o f [facility] 2021-12-28 2021-12-28 Outpatient R PARKER [facility] [id number] Univers 15:00:00 15:00:00 AMANDA ity o f [facility] 2021-12-22 2021-12-22 Orders Doctor PHILL 1.2.840.114 [id number] Univers 00:00:00 00:00:00 Only Unassigned, COLEMAN 350.1.13.10 ity of [place] [facility] 4.2.7.2.686 [place] as [id number] [address] 2021-12-14 2021-12-14 Orders Doctor PHILL 1.2.840.114 [id number] Univers 00:00:00 00:00:00 Only Unassigned, COLEMAN 350.1.13.10 ity of [place] [facility] 4.2.7.2.686 [place] as [phone] [address] 2021-12-11 2021-12-11 Telephone [facility] 1.2.210.114 [id number] Univers 00:00:00 00:00:00 Lokesh ESCOBAR 350.1.13.10 ity [place] C[place] AT [phone] Nh dical VICTORY 198 [facility] 2021-10-28 2021-10-28 Office Henrietta Santos [facility] 1.2.173.050 [id number] Univers 10:00:00 11:33:53 Visit Edis GUTIÉRREZ 350.1.13.10 i ty of [facility] 4.2.7.2.[place] [phone] Nh gilberto NAL 134 [facility] 2021-10-28 2021-10-28 Outpatient R HENRIETTA SANTOS [facility] [id number] Univers 10:00:00 11:33:53 ity of [facility] 2021-10-28 2021-10-28 Outpatient R HENRIETTA SANTOS [facility] [id number] Univers 10:00:00 10:00:00 ity of [facility] 2021-10-21 2021-10-21 Outpatient R HENRIETTA SANTOS [facility] [id number] Univers 15:30:00 15:30:00 [facility] 2021-10-12 2021-10-12 Outpatient R TAD [facility] [id number] Univers 13:50:00 13:50:00 LOKESH [facility] 2021-10-09 2021-10-09 Imm/Inj Vaccine, [facility] 1.2.840.114 [id number] Univers 15:00:00 15:04:02 Visit Moe Marie 350.1.13 .10 ity of [place] [id number] Nh dical NAL 044 [facility] 2021-10-09 2021-10-09 Outpatient R FRANK [facility] [id number] Univers 15:00:00 15:00:00 MOE olivier [facility] 2021-10-09 2021-10-09 Outpatient R FRANK [facility] [id number] Univers 15:00:00 15:00:00 MOE [facility] 2021-10-08 2021-10-08 Office Tom Henrietta [facility] ..[id number] Univers 16:00:00 16:57:27 Visit Edis GUTIÉRREZ 350.1.13.10 i ty of [place].2.[place] [id number] Nh dical NAL 134 [facility] 2021-10-08 2021-10-08 Outpatient R HENRIETTA SANTOS [facility] [id number] Univers 16:00:00 16:57:27 [facility] 2021-10-08 2021-10-08 Outpatient R HENRIETTA SANTOS [facility] [id number] Univers 08:15:00 08:15:00 [facility] 2021-10-08 2021-10-08 Patient Laura [facility] 1.2.840.114 [id number] Univers 00:00:00 00:00:00 Secure Msg Rachel GUTIÉRREZ 350.1.13.10 ity of [place].2.[place] [id number] Nh dical NAL [address] [place] [address] 2021-10-07 2021-10-07 Outpatient R SANTOS HENRIETTA [facility] [id number] Univers 10:30:00 11:44:37 ity of [facility] 2021-10-07 2021-10-07 [facility] 1.2.005.020 [id number] Univers 10:30:00 11:44:37 Visit Edis GUTIÉRREZ 350.1.13.10 i ty of [place] 4.2.7.2.[place] [phone] Nh dical NAL [address] [place] [address] 2021-10-07 2021-10-07 Telephone [facility] 1.2.840.114 [id number] Univers 00:00:00 00:00:00 Cam MARLA 350.1.13.10 i ty of [place] 4.2.7.2.[place] [id number] Nh dical NAL [address] [place] [address] 2021-10-07 2021-10-07 Patient Laura [facility] 1.2.840.114 [id number] Univers 00:00:00 00:00:00 Secure Msg Rachel MARLA 350.1.13.10 ity of [place].2.[place] [id number] Nh dical NAL [address] [place] [address] 2021-10-06 2021-10-06 Outpatient R TOM [facility] PRACTICE MANAGEMENT CONSULTANT [id number] Univers 06:17:00 10:43:00 ity of [facility] 2021-10-06 2021-10-06 [facility] Tom [facility] 1.2.840.114 [id number] Univers 06:17:00 10:43:00 Encounter Edis GUTIÉRREZ [id number] [place] [phone] [address] 2021-10-06 2021-10-06 Outpatient R TOM [facility] PRACTICE MANAGEMENT CONSULTANT [id number] Univers 06:17:00 10:43:00 ity of [facility] 2021-10-06 2021-10-06 Surgery Henrietta Santos [facility] [id number] Univers 07:50:00 09:26:00 Edis GUTIÉRREZ 350.1.13.10 i [place] [phone] [facility] [address] 2021-10-06 2021-10-06 Anesthesia Victor HugosajiYvon [facility] [id number] Univers 07:53:00 09:11:00 Event Phill Louie 350.1.13.10 [place] [id number] [address] 2021-10-05 2021-10-05 Furniture Installer Hailey, Adc Lab Main [facility] 1.2.8 [id number] Univers 14:00:00 14:15:00 Visit Henrietta Santos 350.1.13.10 [place] [phone] [facility] [address] [facility] 2021-10-05 2021-10-05 Furniture Installer 1, Adc Lab [facility] 1.2.840.114 [id number] Univers 13:00:00 13:15:00 Visit Henrietta Santos 350.1.13.10 [facility] [id number] [phone] [facility] [address] [place] 2021-10-05 2021-10-05 Outpatient R HENRIETTA SANTOS [facility] [id number] Univers 13:00:00 13:00:00 ity of [facility] 2021-10-05 2021-10-05 Orders Doctor PHILL 1.2.840.114 [id number] Univers 00:00:00 00:00:00 Only Unassigned, COLEMAN [id number] ity of [place] [facility] 4.2.7.2.686 [place] [phone] [facility] [address] 2021-10-01 2021-10-01 Outpatient R CORNELL [facility] [id number] Univers 15:15:00 [facility]:15[facility] 2021-09-23 Outpatient R [facility] [id number] Univers 14:00:00 14:00:00 ity [facility] 2021-09-23 2021-09-23 Outpatient R [facility] [id number] Univers 14:00:00 14:00:00 ity [facility] 2021-09-18 2021-09-18 [facility] [facility] [id number] Univers 08:00:00 08:00:00 BHARGAV [facility] 2021-09-15 2021-09-15 Outpatient R HENRIETTA SANTOS [facility] [id number] Univers 14:15:00 15:09:42 ity [facility] 2021-09-15 2021-09-15 Office Tom [facility] 1.2.164.947 [id number] Univers 14:15:00 15:09:42 Visit Edis GUTIÉRREZ 350.1.13.10 i ty [facility] [place] [phone] Me dical NAL 134 [facility] 2021-09-15 2021-09-15 Outpatient R HENRIETTA SANTOS [facility] [id number] Univers 14:15:00 14:15:00 [facility] 2021-09-02 2021-09-02 Imm/Inj Vaccine, [facility] 1.2.840.114 [id number] Univers 14:00:00 14:11:11 Visit Moe Marie 350.1.13 .10 ity [facility] [place] [id number] Me dical NAL 044 [facility] 2021-09-02 2021-09-02 Outpatient R FRANK [facility] [id number] Univers 14:00:00 14:00:00 MOE mata [facility] 2021-08-27 2021-08-27 Outpatient R CORNELL [facility] [id number] Univers 15:15:00 15:15:00 BHARGAV [facility] 2021-08-26 2021-08-26 Case Henrietta Santos [facility] 1.2.014.976 [id number] Univers 00:00:00 00:00:00 Management Edis GUTIÉRREZ 350.1.13.10 ity of [place] [id number] Nh dical NAL [address] [place] [address] 2021-08-24 2021-08-24 Outpatient R HENRIETTA SANTOS [facility] [id number] Univers 10:00:00 11:05:48 ity of [facility] 2021-08-24 2021-08-24 Initial Henrietta Santos [facility] 1.2.064.662 [id number] Univers 10:00:00 11:05:48 Edis GUTÉIRREZ 350.1.13.10 ity of Visit [place] [id number] Nh dicaz NAL [address] [place] [address] 2021-08-24 2021-08-24 Orders Doctor PHILL 1.2.840.114 [id number] Univers 00:00:00 00:00:00 Only Unassigned, COLEMAN 350.1.13.10 ity of [place] [facility] 4.2.7.2.686 [place] as [phone] [address] 2021-08-10 2021-08-10 Outpatient R TAD [facility] [id number] Univers 13:06:58 23:59:00 LOKESH mata [facility] 2021-08-10 2021-08-10 Outpatient R TAD [facility] [id number] Univers 13:06:58 23:59:00 LOKESH mata [facility] 2021-08-10 2021-08-10 [facility] 1.2.840.114 [id number] Univers 13:06:58 23:59:00 Encounter Lokesh ESCOBAR 350.1.13.10 ity of [place] AT [phone] Nh dical VICTORY 809 [facility] 2021-08-10 2021-08-10 Office [facility] 1.2.840.114 [id number] Univers 13:50:00 13:50:00 Visit Lokesh ESCOBAR 350.1.13.10 ity of CARE 4.2.7.2.686 Goldenbekah s CENTER AT [id number] Nh gilberto JANE [address] [place] [address] 2021-08-06 2021-08-06 [facility]phone [facility] 1.2.840.114 [id number] Univers 00:00:00 00:00:00 Jocelyn Gray HEATSET WINDER OPERATOR 350.1.13.10 ity of REGIONAL 4.2.7.2.686 [place] as MATERNAL [phone] Med ical & CHILD 107 [facility] 2021-07-31 2021-07-31 Outpatient Davion HOOK [facility] [id number] Univers 13:15:00 13:33:04 HETAL mata [facility] 2021-07-31 2021-07-31 Nurse Meliza-Rmchp Nurse Vst, Fp Nrpt Pills Class [facility] 1.2.840.114 [id number] Univers 13:15:00 13:33:04 Visit Hetal Hook HEATSET WINDER OPERATOR 350.1.13.10 ity of [facility] 4.2.7.2.686 Golden as MATERNAL [id number] Med ical & CHILD 125 [facility] 2021-07-31 2021-07-31 Outpatient Davion HOOK [facility] [id number] Univers 13:15:00 13:15:00 HETAL mata [facility] 2021-07-30 2021-07-30 Outpatient R ARELIS [facility] [id number] Univers 16:20:00 16:20:00 PHILL mata [facility] 2021-07-30 2021-07-30 Office [facility] 1.2.590.589 [id number] Univers 16:20:00 16:20:00 Visit Phill PRIMARY 350.1.13.10 it y of CARE 4.2.7.2.686 Goldenbekah márquez YANG [id number] Nh gilberto [place] 2021-07-30 2021-07-30 Office [facility] 1.2.664.226 [id number] Univers 16:20:00 16:20:00 Visit Phill PRIMARY 350.1.13.10 it y of C[place].2.[place] STACIER[place]ERT[place] [phone] [address] 2021-07-30 2021-07-30 Outpatient R ARELIS [facility] [id number] Univers 16:20:00 16:07:54 PHILL mata [facility] 2021-07-24 2021-07-24 Outpatient R ROSEMARY [facility] [id number] Univers 17:20:00 17:20:00 ROSA mata o braeden [facility] 2021-07-16 2021-07-16 Outpatient R ARELIS [facility] [id number] Univers 15:00:00 15:00:00 PHILL mata [facility] 2021-05-26 2021-05-26 Outpatient Davion MARIE [facility] [id number] Univers 09:20:00 09:20:00 MOE mata [facility] 2021-05-26 2021-05-26 Outpatient Davion MARIE [facility] [id number] Univers 09:20:00 09:20:00 MOE [facility] 2021-05-25 2021-05-25 Outpatient Davion PARKER [facility] [id number] Univers 15:00:00 15:46:14 AMANDA snyder [facility] 2021-05-25 2021-05-25 Office [facility] 1.2.840.114 [id number] Univers 15:00:00 15:46:14 Visit Amanda Ricardo HEATSET WINDER OPERATOR 350.1.13.10 ity of REGIONAL 4.2.7.2.686 Golden as MATERNAL [phone] [facility] CHILD [address] [place] [address] 2021-05-25 2021-05-25 Outpatient [facility] [id number] Univers 15:00:00 15:00:00 AMANDA mata o [facility] 2021-05-25 2021-05-25 Orders Doctor PHILL 1.2.840.114 [id number] Univers 00:00:00 00:00:00 Only Unassigned, COLEMAN 350.1.13.10 ity of [place] [facility] 4.2.7.2.686 [place] as [phone] [place] [address] [place] 2021-05-19 2021-05-19 Office Josey Koch [facility] 1.2.840.114 [id number] Univers 16:45:00 17:00:00 Visit [facility] 350.1.13.10 it y of [place] 4.2.7.2.686 [place] WABASSO [phone] [address] OFFICE BUILDING 2021-05-19 2021-05-19 Outpatient R JOSEY KOCH [facility] [id number] Univers 16:45:00 16:45:00 ity of [facility] 2021-05-05 2021-05-05 Telephone [facility] 1.2.461.036 [id number] Univers 00:00:00 00:00:00 Amanda R HEATSET WINDER OPERATOR 350.1.13.10 ity of [facility] 4.2.7.2.686 Golden as MATERNAL [phone] [facility] ical & CHILD [address] [place] [address] 2021-05-05 2021-05-05 Telephone Elena [facility] 1.2.860.189 [id number] Univers 00:00:00 00:00:00 Northa R HEATSET WINDER OPERATOR 350.1.13.10 ity of [facility] 4.2.7.2.686 Golden as MATERNAL [id number] [facility] & [address] 2021-04-30 2021-04-30 Outpatient R ELENA [facility] [id number] Univers 15:30:00 16:02:20 ROSHUNDA ity o f [facility] 2021-04-30 2021-04-30 Office [facility] 1.2.840.114 [id number] Univers 15:30:00 16:02:20 Visit Jesenianda R HEATSET WINDER OPERATOR 350.1.13.10 ity of [facility] 4.2.7.2.686 Golden as MATERNAL [id number] [facility] & CHILD [address] [place] [address] 2021-04-28 2021-04-28 Outpatient R JOSEY KOCH [facility] [id number] Univers 15:45:00 15:45:00 ity of [facility] 2021-04-04 2021-04-04 Outpatient R ARELIS [facility] [id number] Univers 08:43:04 23:59:00 PHILL mata [facility] 2021-04-04 2021-04-04 [facility] 1.2.840.114 [id number] Univers 08:43:04 23:59:00 Encounter Phill SPECIALTY 350.1.13.10 ity [place] [phone] Nh gilberto JANE 804 [facility] 2021-04-04 2021-04-04 [facility] 1.2.840.114 [id number] Univers 08:42:06 08:42:06 Encounter Phill SPECIALTY 350.1.13.10 ity of C[place]2.[place].2.[place] [id number] Nh gilberto JANE 803 [facility] 2021-03-20 2021-03-20 [facility] 1.2.840.114 [id number] Univers 00:00:00 00:00:00 Phill PRIMARY 350.1.13.10 it y of [place] 4[place].2.686 [place] [id number] Nh gilberto [address] [place] [address] 2021-03-05 2021-03-05 Outpatient Davion INFANTE [facility] [id number] Univers 15:40:00 15:40:00 PHILL olivier [facility] 2021-02-26 2021-02-26 Outpatient Davion INFANTE [facility] [id number] Univers 15:30:00 15:30:00 PHILL mata [facility] 2021-02-19 2021-02-19 Outpatient Davion INFANTE [facility] [id number] Univers 15:50:00 15:50:00 PHILL mata [facility] 2021-01-20 2021-01-20 Outpatient Davion HOOK [facility] [id number] Univers 13:15:00 13:15:00 HETAL olivier [facility] 2021-01-12 2021-01-12 Outpatient Davion VASQUEZ [facility] [id number] Univers 09:15:00 09:15:00 JOCELYN ity o f [facility] 2021-01-08 2021-01-08 [facility]phone [facility] 1.2.840.114 [id number] Univers 00:00:00 00:00:00 Jocelyn C HEATSET WINDER OPERATOR 350.1.13.10 ity of REGIONAL 4.2.7.2.686 Golden as MATERNAL [id number] [facility] & CHILD [address] [place] [address] 2021-01-07 2021-01-07 Telephone [facility] 1.2.840.114 [id number] Univers 00:00:00 00:00:00 Jocelyn C HEATSET WINDER OPERATOR 350.1.13.10 ity of REGIONAL 4.2.7.2.686 [place] as MATERNAL [id number] [address] 2021-01-05 2021-01-05 Office [facility] 1.2.192.451 [id number] Univers 13:58:32 14:20:28 Visit Jocelyn C HEATSET WINDER OPERATOR 350.1.13.10 ity of REGIONAL 4.2.7.2.686 [place] as MATERNAL [id number] [facility] & [address] 2021-01-05 2021-01-05 Outpatient R CHRISTINA, [facility] [id number] Univers 13:45:00 13:45:00 JOCELYN ity o f [facility] 2021-01-05 2021-01-05 Outpatient R CHRISTINA, [facility] [id number] Univers 11:00:00 11:00:00 JOCELYN ity o f [facility] 2020-12-29 2020-12-29 Office [facility] 1.2.143.911 [id number] Univers 08:45:08 09:15:08 Visit Jocelyn C HEATSET WINDER OPERATOR 350.1.13.10 ity of REGIONAL 4.2.7.2.686 [place] as MATERNAL [id number] [facility] & CHILD [address] [place] [address] 2020-12-29 2020-12-29 Office [facility] 1.2.225.120 [id number] Univers 08:45:08 09:15:08 Visit Jocelyn C HEATSET WINDER OPERATOR 350.1.13.10 ity of REGIONAL 4.2.7.2.686 Golden as MATERNAL [id number] [facility] & CHILD [address] [place] [address] 2020-12-29 2020-12-29 Outpatient R CHRISTINA, [facility] [id number] Univers 08:45:00 08:45:00 JOCELYN mata o f [facility] 2020-12-29 2020-12-29 Orders Doctor PHILL 1.2.840.114 [id number] Univers 00:00:00 00:00:00 Only Unassigned, COLEMAN 350.1.13.10 ity of [place] HOSPITAL 4.2.7.2.686 Golden as [id number] [address] 2020-12-29 2020-12-29 Orders Doctor PHILL 1.2.840.114 [id number] Univers 00:00:00 00:00:00 Only Unassigned, COLEMAN 350.1.13.10 ity of [place] HOSPITAL 4.2.7.2.686 Golden as [phone] [address] 2020-12-19 2020-12-19 Office [facility] 1.2.860.633 [id number] Univers 15:55:19 16:24:05 Visit Jocelyn C HEATSET WINDER OPERATOR 350.1.13.10 ity of REGIONAL 4.2.7.2.686 Golden as MATERNAL [id number] [address] 2020-12-19 2020-12-19 Office [facility] 1.2.136.420 [id number] Univers 15:55:19 16:24:05 Visit Jocelyn C HEATSET WINDER OPERATOR 350.1.13.10 ity of REGIONAL 4.2.7.2.686 Golden as MATERNAL [id number] [facility] & CHILD [address] [place] [address] 2020-12-19 2020-12-19 Outpatient R CHRISTINA, [facility] [id number] Univers 16:00:00 16:00:00 JOCELYN ity o f [facility] 2020-12-092020-12-09 Outpatient R [facility] [id number] Univers 13:00:00 13:00:00 ity [facility] 2020-11-25 2020-11-25 Office [facility] 1.2.840.114 [id number] 11:48:14 12:04:05 Visit Lindajoesph R HEATSET WINDER OPERATOR 350.1.13.10 REGIONAL 4.2.7.2.686 MATERNAL [phone] & [address] 2020-11-25 2020-11-25 Office [facility] 1.2.840.114 [id number] Univers 11:48:14 12:04:05 Visit Amanda R HEATSET WINDER OPERATOR 350.1.13.10 ity [facility] 4.2.7.2.686 Golden as MATERNAL [id number] [facility] & CHILD [address] [place] [address] 2020-11-25 2020-11-25 Outpatient [facility] [id number] Univers 12:00:00 12:00:00 AMANDA mata o [facility] 2020-11-12 2020-11-12 Out[facility] [id number] Univers 09:30:00 09:30:00 JOCELYN mata o [facility] 2020-11-07 2020-11-07 Outpatient R CORNELL [facility] [id number] Univers 08:45:00 08:45:00 BHARGAV [facility] 2020-10-22 2020-10-22 [facility] 1.2.840.114 [id number] Univers 00:00:00 00:00:00 Jocelyn Gray HEATSET WINDER OPERATOR 350.1.13.10 ity of [facility] 4.2.7.2.686 Golden as MATERNAL [id number] [facility] & CHILD [address] [place] [address] 2020-10-15 2020-10-15 Urgent Provider, [facility] 1.2.840.114 [id number] Univers 12:52:51 13:29:22 Care Evi Rodriguez [facility] 350.1.13.10 [facility] 4.2.7.2.686 Golden as Professio [phone] Nh dical [facility] [address] [place] [address] 2020-10-15 2020-10-15 Outpatient R LOUIS [facility] [id number] Univers 13:00:00 13:00:00 EVI ity [facility] 2020-10-13 2020-10-13 Outpatient R CHRISTINA [facility] [id number] Univers 14:15:00 14:15:00 JOCELYN mata o f [facility] 2020-10-08 2020-10-08 Outpatient P [facility] [id number] Univers 13:00:00 13:00:00 ity [facility] 2020-10-06 2020-10-06 Outpatient R [facility] [id number] Univers 11:00:00 11:00:00 ity [facility] 2020-10-02 2020-10-02 Telephone Christina [facility] 1.2.840.114 [id number] Univers 00:00:00 00:00:00 Jocelyn Gray HEATSET WINDER OPERATOR 350.1.13.10 ity of REGIONAL 4.2.7.2.686 Golden as MATERNAL [phone] [facility] ica & CHILD [address] [place] [address] 2020-10-01 2020-10-01 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 114 [id number] Univers 10:23:48 10:38:48 Visit Jocelyn Vasquez HEATSET WINDER OPERATOR 350.1.13. 10 ity of REGIONAL 4.2.7.2.686 Golden as MATERNAL [id number] [facility] ical & CHILD [address] [place] [address] 2020-10-01 2020-10-01 Outpatient R [facility] [id number] Univers 10:30:00 10:30:00 ity [facility] 2020-09-30 2020-09-30 Office Josey Koch [facility] 1.2.840.114 [id number] Univers 13:53:34 14:08:34 Visit Health 350.1.13.10 it y of [place]2.[place] [id number] [address] Office Building 2020-09-30 2020-09-30 Outpatient R JOSEY KOCH [facility] [id number] Univers 14:00:00 14:00:00 ity of [facility] 2020-09-29 2020-09-29 [facility] 1.2.215.991 [id number] Univers 12:48:08 13:43:12 Visit Jocelyn Gray HEATSET WINDER OPERATOR 350.1.13.10 ity [facility] 4.2.7.2.686 Golden as MATERNAL [id number] [facility] ical & CHILD [address] [place] [address] 2020-09-29 2020-09-29 Outpatient R CHRISTINA [facility] [id number] Univers 12:45:00 12:45:00 JOCELYN snyder [facility] 2020-09-23 2020-09-23 Outpatient R CHRISTINA [facility] [id number] Univers 09:00:00 09:00:00 JOCELYN snyder [facility] 2020-09-13 2020-09-13 Nurse China Fine 1.2.840.114 [id number] Univers 00:00:00 00:00:00 Triage COLEMAN 350.1.13.10 it y of HOSPITAL 4.2.7.2.686 [place] as [id number] [address] 2020-09-12 2020-09-12 Telephone Josey Koch [facility] 1.2.840.114 [id number] Univers 00:00:00 00:00:00 Health 350.1.13.10 it y of [place] 4.2.7.2.686 [place] [id number] [address] Office Building 2020-09-03 2020-09-03 Outpatient R [facility] [id number] Univers 08:15:00 08:15:00 ity of [facility] 2020-09-01 2020-09-01 Outpatient R CHRISTINA [facility] [id number] Univers 07:45:00 07:45:00 JOCELYN snyder [facility] 2020-08-28 2020-08-28 [facility]phone [facility] 1.2.840.114 [id number] Univers 00:00:00 00:00:00 Jocelyn C HEATSET WINDER OPERATOR 350.1.13.10 ity of [facility] 4.2.7.2.686 Golden as MATERNAL [phone] [facility] & CHILD [address] [place] [address] 2020-08-27 2020-08-27 Telephone [facility] 1.2.840.114 [id number] Univers 00:00:00 00:00:00 Jocelyn C HEATSET WINDER OPERATOR 350.1.13.10 ity of [facility] 4.2.7.2.686 Golden as MATERNAL [id number] [facility] & CHILD [address] [place] [address] 2020-08-26 2020-08-26 [facility] 1.2.369.489 [id number] Univers 14:28:27 15:44:22 Jocelyn C HEATSET WINDER OPERATOR 350.1.13.10 ity of Visit [facility] 4.2.7.2.686 Golden as MATERNAL [id number] [facility] & [address] 2020-08-26 2020-08-26 Outpatient R CHRISTINA [facility] [id number] Univers 14:00:00 14:00:00 JOCELYN snyder [facility] 2020-08-26 2020-08-26 Orders Doctor PHILL 1.2.840.114 [id number] Univers 00:00:00 00:00:00 Only Unassigned, COLEMAN 350.1.13.10 ity of [place] [address]686 [place] as [phone] [address] 2020-07-22 2020-07-22 Outpatient Davion PARKER [facility] [id number] Univers 09:45:00 09:45:00 AMANDA deras [facility] 2020-07-22 2020-07-22 Outpatient Davion PARKER [facility] [id number] Univers 09:45:00 09:45:00 AMANDA deras [facility] 2020-07-22 2020-07-22 Office [facility] 1.2.840.114 [id number] Univers 09:25:38 09:43:35 Visit Jesenianda R HEATSET WINDER OPERATOR 350.1.13.10 ity of [facility] 4.2.7.2.686 Golden as MATERNAL [phone] [address] 2020-07-08 2020-07-08 Office [facility] 1.2.840.114 [id number] Univers 14:20:22 14:44:34 [facility] HEATSET WINDER OPERATOR 350.1.13.10 ity of [facility] 4.2.7.2.686 Golden as MATERNAL [id number] [facility] CHILD [address] [place] [address] 2020-07-08 2020-07-08 Out[facility] [id number] Univers 14:15:00 14:15:00 AMANDA mata o [facility] 2020-07-08 2020-07-08 Patient Frank [facility] 1.2.840.114 [id number] Univers 00:00:00 00:00:00 Outreach [facility] 350.1.13.10 i ty [facility] 4.2.7.2.686 [place] [id number] [address] 2020-06-10 2020-06-10 Outpatient R CHRISTINA [facility] [id number] Univers 09:30:00 09:30:00 JOCELYN kimoy o f [facility] 2020-05-21 2020-05-21 Office [facility] 1.2.840.114 [id number] Univers 12:48:35 13:25:07 Visit Lindajoesph R HEATSET WINDER OPERATOR 350.1.13.10 ity of [facility] 4.2.7.2.686 Golden as MATERNAL [id number] [facility] & CHILD [address] [place] [address] 2020-05-21 2020-05-21 Outpatient [facility] [id number] Univers 12:45:00 12:45:00 AMANDA ity o f [facility] 2020-05-21 2020-05-21 Orders Doctor POLLOCK 1.2.840.114 [id number] Univers 00:00:00 00:00:00 Only Unassigned, COLEMAN 350.1.13.10 ity of [place] [facility] 4.2.7.2.686 Golden as [id number] [address] 2020-03-18 2020-03-18 Nurse Visit, Dick-Rmchp Nurse [facility] 1.2 .840.114 [id number] Univers 10:31:12 10:55:32 Visit Amanda Parker HEATSET WINDER OPERATOR 350.1.13.10 ity of [facility] 4.2.7.2.686 Golden as MATERNAL [id number] [facility] & CHILD [address] [place] [address] 2020-03-18 2020-03-18 Outpatient R [facility] [id number] Univers 10:30:00 10:30:00 ity of [facility] 2020-03-18 2020-03-18 Outpatient [facility] [id number] Univers 10:30:00 10:30:00 AMANDA snyder [facility] 2020-03-10 2020-03-10 Telephone [facility] [id number] Univers 00:00:00 00:00:00 Jocelyn Gray [employer]PERATOR [id number] ity of [facility] [id number] Golden as MATERNAL [phone] [address] 2020-03-05 2020-03-05 Office [facility] [id number] Univers 15:35:31 16:27:42 Visit Jocelyn Gray [employer] W[employer] OPERATOR [id number] ity of [facility] [id number] Golden as MATERNAL [phone] [facility] & CHILD [address] [place] [address] 2020-03-05 2020-03-05 [facility] [id number] Univers 15:30:00 15:30:00 JOCELYN snyder [facility] 2020-03-05 2020-03-05 [facility] [id number] Univers 15:30:00 15:30:00 JOCELYN snyder [facility] 2020-02-26 2020-02-26 Jesús POLLOCK [id number] Univers 00:00:00 00:00:00 Only Unassigned, COLEMAN [id number] ity of [facility] [id number] Golden as [phone] [address] 2020 2020 Outpatient [facility] [id number] Univers 10:30:00 10:30:00 PHILL mata [facility] 2020-02-08 2020-02-08 Office [facility] [id number] Univers 14:38:38 15:30:42 Visit Jocelyn Gray [employer] W[employer] OPERATOR [id number] ity of [facility] [id number] Golden as MATERNAL [phone] [facility] ical & CHILD [address] [place] [address] 2020-02-08 2020-02-08 Outpatient R [facility] [id number] Univers 14:45:00 14:45:00 JOCELYN mata o f [facility] 2020-01-30 2020-01-30 Orders Doctor PHILL 1..840.114 [id number] Univers 00:00:00 00:00:00 Only Unassigned, COLEMAN 350.1.13.10 ity of [place] [facility] 4.2.7.2.686 Golden as [phone] [address] 2020-01-24 2020-01-24 Outpatient Davion [facility] [id number] Univers 08:40:00 08:40:00 PHILL mata [facility] 2020-01-23 2020-01-23 Abstract [facility] 1.2.840.114 [id number] Univers 00:00:00 00:00:00 Tony PRIMARY 350.1.13.10 it y of [facility] [place].2.[place] [id number] [address] 2020-01-23 2020-01-23 Telephone [facility] 1.2.819.588 [id number] Univers 00:00:00 00:00:00 Amanda R HEATSET WINDER OPERATOR 350.1.13.10 ity of [facility] 4.2.7.2.686 Golden as MATERNAL [phone] [facility] & CHILD [address] [place] [address] 2020-01-21 2020-01-21 Office [facility] 1.2.840.114 [id number] Univers 08:32:46 09:29:11 Visit Lindaalivia Ricardo HEATSET WINDER OPERATOR 350.1.13.10 ity of [facility] 4.2.7.2.686 Golden as MATERNAL [phone] [facility] & CHILD [address] [place] [address] 2020-01-21 2020-01-21 Outpatient R [facility] [id number] Univers 08:30:00 08:30:00 LINDAMELISSAJOESPH mata o [facility] 2019-12-27 2020-01-15 Office [facility] 1.2.776.756 [id number] Univers 14:49:24 22:41:22 Visit [facility] 350.1.13.10 it y of CARE 4.2.7.2.686 [place] [phone] [address] 2019-12-31 2019-12-31 Telephone [facility] 1.2.840.114 [id number] Univers 00:00:00 00:00:00 Jocelyn Gray HEATSET WINDER OPERATOR 350.1.13.10 ity of [facility] 4.2.7.2.686 Golden as MATERNAL [phone] [facility] CHILD [address] [place] [address] 2019-12-28 2019-12-28 Office [facility] 1.2.065.201 [id number] Univers 15:18:44 15:56:31 Visit Jocelyn C HEATSET WINDER OPERATOR 350.1.13.10 ity of [facility] 4.2.7.2.686 Golden as MATERNAL [phone] [address] 2019-12-28 2019-12-28 Outpatient [facility] [id number] Univers 15:30:00 15:30:00 JOCELYN ity o f [facility] 2019-12-27 2019-12-27 [facility] 1.2.840.114 [id number] Univers 14:56:29 23:59:00 Encounter Phill [facility] 350.1.13.10 ity of CARE 4.2.7.2.686 Shaun SORIA [phone] Nh dical [address] 2019-12-27 2019-12-27 Outpatient R ARELIS [facility] [id number] Univers 14:50:00 14:50:00 PHILL ity of [facility] 2019-12-26 2019-12-26 Abstract [facility] 1.2.998.650 [id number] Univers 00:00:00 00:00:00 [facility] 350.1.13.10 it y of [facility] 4.2.7.2.686 Shaun SORIA [phone] Nh dical [address] 2019-12-25 2019-12-25 Nurse Visit, Wendie Nurse [facility] 1.2 .840.114 [id number] Univers 13:07:45 13:30:36 Visit Amanda Parker HEATSET WINDER OPERATOR 350.1.13.10 ity of [facility] 4.2.7.2.686 Golden as MATERNAL [phone] Med ical & CHILD [address] [place] [address] 2019-12-25 2019-12-25 Outpatient R ELENA [facility] [id number] Univers 13:00:00 13:00:00 AMANDA bergery o f [facility] 2019-12-10 2019-12-10 Outpatient R JOSEY KOCH [facility] [id number] Univers 09:30:00 09:30:00 ity of [facility] 2019-10-02 2019-10-02 Nurse Visit, Wendie Nurse [facility] 1.2 .840.114 [id number] Univers 12:50:26 13:05:26 Visit Amanda Parker HEATSET WINDER OPERATOR 350.1.13.10 ity of [facility] 4.2.7.2.686 Golden as MATERNAL [phone] [facility] ical & CHILD [address] [place] [address] 2019-10-02 2019-10-02 Outpatient R [facility] [id number] Univers 13:00:00 13:00:00 ity of [facility] 2019-10-01 2019-10-01 Outpatient R [facility] [id number] Univers 13:00:00 13:00:00 ity of [facility] 2019-10-01 2019-10-01 Telephone Katlinjim [facility] 1.2.840.114 [id number] Univers 00:00:00 00:00:00 Jocelyn Gray HEATSET WINDER OPERATOR 350.1.13.10 ity of [facility] 4.2.7.2.686 Golden as MATERNAL [phone] [facility] ical & CHILD [address] [place] [address] 2019-08-21 2019-08-21 Orders Doctor PHILL 1.2.840.114 [id number] Univers 00:00:00 00:00:00 Only Unassigned, COLEMAN 350.1.13.10 ity of [place] [facility] 4.2.7.2.686 Golden as [phone] [address] 2019-07-09 2019-07-09 [facility] 1.2 .840.114 [id number] Univers 13:42:44 13:57:44 Visit Amanda Parker HEATSET WINDER OPERATOR 350.1.13.10 ity of [facility] 4.2.7.2.686 Golden as MATERNAL [phone] [facility] ical & CHILD [address] [place] [address] 2019-07-09 2019-07-09 Outpatient R [facility] [id number] Univers 13:30:00 13:30:00 ity of [facility] 2019-07-05 2019-07-05 Outpatient R ARELIS [facility] [id number] Univers 09:50:00 09:50:00 PHILL mata [facility] 2019-06-11 2019-06-11 Office Josey Koch [facility] 1.2.840.114 [id number] Univers 09:45:09 10:00:09 Visit Health 350.1.13.10 it y of [place]2.[place] [phone] [address] Office Building 2019-06-11 2019-06-11 Outpatient R JOSEY KOCH [facility] [id number] Univers 10:00:00 10:00:00 ity [facility] 2019-05-08 2019-05-09 Office Josey Koch [facility] 1.2.840.114 [id number] Univers 13:07:45 11:20:43 Visit Health 350.1.13.10 it y of [place] 4[place]2.7.2.686 [place] [phone] [address] Office Building 2019-05-03 2019-05-05 Hospital Josey Koch 1.2.840.114 [id number] Univers 08:27:00 13:50:00 Encounter Coleman 350.1.13.10 ity of Hospital 4.2.7.2.686 Golden as [phone] [address] 2019-04-27 2019-04-27 Telephone Josey Koch [facility] 1.2.840.114 [id number] Univers 00:00:00 00:00:00 Health 350.1.13.10 it y of Cancer 4.2.7.2.686 Shaun márquez [facility] [phone] [address] 2019-03-26 2019-03-26 Outpatient Davion [facility] [id number] Univers 10:39:20 23:59:00 NATA esperanza [facility] 2019-03-26 2019-03-26 Outpatient Davion DINERO [facility] [id number] Univers 10:39:20 23:59:00 KIPTON esperanza [facility] 2019-03-23 2019-03-23 Outpatient Davion DINERO [facility] [id number] Univers 00:00:00 00:00:00 [facility] 2018-12-25 2019-01-02 Routine [facility] 1.2.840.114 [id number] Univers 08:15:33 13:00:13 Amanda R HEATSET WINDER OPERATOR 350.1.13.10 ity of Visit REGIONAL 4.2.7.2.686 Golden as MATERNAL [phone] [facility] ical & CHILD [address] [place] [address] 2018-12-25 2018-12-25 Outpatient Davion PARKER [facility] [id number] Univers 08:00:00 09:13:28 AMANDA mata o f [facility] 2018-12-21 2018-12-21 Routine [facility] 1.2.840.114 [id number] Univers 08:15:00 08:30:00 Northa R HEATSET WINDER OPERATOR 350.1.13.10 ity of Visit REGIONAL 4.2.7.2.686 Golden as MATERNAL [phone] [facility] & CHILD [address] [place] [address] 2018-12-21 2018-12-21 Outpatient R PARKER [facility] [id number] Univers 08:15:00 08:15:00 ROSMELISSANDA ity o f [facility] 2018-12-02 2018-12-04 Hospital PHILL [place] 1.2.840.114 [id number] Univers 00:16:00 15:06:00 Encounter Erika GIBSON 350.1.13.10 ity of [facility] 4.2.7.2.686 [place] [phone] [address] 2018-11-30 2018-11-30 Routine [facility] 1.2.191.928 [id number] [facility] 08:54:52 09:13:01 Hetal Bales HEATSET WINDER OPERATOR 350.1.13.10 i ty of Visit REGIONAL 4.2.7.2.686 Golden as MATERNAL [id number] [facility] & CHILD [address] [place] [address] 2018-11-23 2018-11-23 Routine [facility] 1.2.350.204 [id number] Univers 08:17:01 08:54:22 Jocelyn C HEATSET WINDER OPERATOR 350.1.13.10 ity of Visit REGIONAL 4.2.7.2.686 Golden as MATERNAL [phone] [facility] & CHILD [address] [place] [address] 2018-11-16 2018-11-20 Office [facility] 1.2.782.195 [id number] Univers 10:35:57 11:06:37 Visit Phill [facility] 350.1.13.10 it y of CARE 4.2.7.2.686 [place] STACIEROBERTO [phone] [address] 2018-11-16 2018-11-16 [facility] 1.2.270.516 [id number] Univers 15:15:19 15:55:04 Jocelyn C HEATSET WINDER OPERATOR 350.1.13.10 ity of Visit REGIONAL 4.2.7.2.686 Golden as MATERNAL [phone] Med ical & CHILD 107 [facility] 2018-11-14 2018-11-14 Abstract Praveen [facility] 1.2.687.528 [id number] Univers 00:00:00 00:00:00 Gasper Pollock [facility] 350.1.13.10 ity of CARE 4.2.7.2.686 Shaun SORIA [phone] Me dical [address] [place] Results Test Description Test Time Test Comments Results Result Comments Source POCT SARS-COV-2 ANTIGEN (BINAX NOW) 2023-01-03 16:24:00 Test Item Value Reference Range Interpretation Comme nts POCT SARS-COV-2 ANTIGEN (test code Not Detected Not Detected = 48212-1) On board controls acceptable with Yes C Line (test code = 3574) BAN (test code = BAN) accurate development and interpretation of all internal controls Lab Interpretation (test code = Normal 19504-3) [facility] MOLECULAR [id number] 16:18:13 Test Item Value Reference Range Interpretation Comments POCT Molecular Strep (test code = Negative Negative 17726-4) Lab Interpretation (test code = Normal 46092-9) [id number] 15:13:00 Test Item Value Reference Range Interpretation Comments POCT PREG (test code Negative = 1605) On board controls Yes acceptable with C Line (test code = 3574) POCT PREG LOT # (test code = 3575) POCT PREG TEST DATE (test code = 3576) BAN (test code = BAN) accurate development and interpretation of all internal controls [facility] URINALYSIS W SPECIFIC [id number] 15:10:00 Test Item Value Reference Range Interpretation Comments POCT U SP GRAV (test code = 1.015 mg/dl 1.005-1.025 3255) POCT PH U (test code = 3254) 5 mg/dl 5-8 POCT U LEUK EST (test code = NEG Negative - Negative 3263) POCT U NIT (test code = 3262) NEG Negative - Negative POCT U PROT (test code = NEG Negative - Negative 3259) POCT U GLU (test code = 3256) NEG Negative - Negative POCT U KETONE (test code = NEG Negative - Negative 3258) POCT U UROBILI (test code = NEG 0.2-1 3260) POCT U BILI (test code = NEG Negative - Negative 3261) POCT U BLD (test code = 3257) Trace Negative - Negative POCT U COLOR (test code = Yellow 3266) POCT U APPEAR (test code = Clear 3267) [facility] URINALYSIS W SPECIFIC [id number] 15:54:00 Test Item Value Reference Range Interpretation [...] (test code = negative Negative - Negative 8) POCT U UROBILI (test code = 0.2 mg/dl 0.2-1 0) POCT U BILI (test code = Negative Negative - Negative 1) POCT U BLD (test code = 3257) about 250 Negative - Negative POCT U COLOR (test code = yellow 3266) POCT U APPEAR (test code = 3267) [facility] URINALYSIS W SPECIFIC [id number] 15:54:00 Test Item Value Reference Range Interpretation [...] POCT U APPEAR (test code = 3267) [facility] METABOLIC PANEL (NA, K, CL, CO2, GLUCOSE, BUN, CREATININE, CA)2022-10-14 05:53:23 Test Item Value Reference Range Interpretation Comments NA (test code = 136 mmol/L 135-145 9037098471) K (test code = 3.5 mmol/L 3.5-5.0 Slight 7853509830) hemolysis CL (test code = 106 mmol/L 98-108 8371793175) CO2 TOTAL (test code 21 mmol/L 23-31 L = 9308391053) AGAP (test code = 9 2-16 2398660143) BUN (test code = 7 mg/dL 7-23 Slight 0608888821) hemolysis GLUCOSE (test code = 85 mg/dL 70-110 2758076845) CREATININE (test code 0.40 mg/dL 0.50-1.04 L = 5320484239) CALCIUM (test code = 8.2 mg/dL 8.6-10.6 L 6537860463) eGFR (test code = 196.1 mL/min/1.73m2 9029737385) BAN (test code = BAN) Association of [...] tests). Lab Interpretation Abnormal (test code = 49809-9) [id number] 05[facility]53:23 Test Item Value Reference Range Interpretation Comments MAGNESIUM (test code = 3034663067) 1.8 mg/dL 1.7-2.4 Lab Interpretation (test code = Normal 83987-7) [facility] WITH [id number] 05:28:57 Test Item Value Reference Range Interpretation Comments WBC (test code = 6.36 See_Comment [Automated 0947-2) message] The sy stem which generated this result transmitted reference range : 4.30 - 11.10 10*3/?L. The reference range was not used to interpret this result as normal/abnormal . RBC (test code = 3.94 See_Comment [Automated 938-8) message] The sy stem which generated this [...] (test code = 38.4 fL 39.0-49.9 L 29825-6) RDW-CV (test code = 11.8 % 12.0-15.5 L 788-0) PLT (test code = 318 See_Comment [Automated 876-3) message] The sy stem which generated this result transmitted reference range : 166 - 358 10*3/ ?L. The reference r amy was not used to interpret this result as normal/abnormal . MPV (test code = 9.2 fL 9.5-12.9 L 10866-6) NRBC/100 WBC (test 0.0 See_Comment [Automat ed code = 7385594499) message] The system which generated this result transmitted reference range : 0.0 - 10.0 /100 WBCs. The refer ence range was not u sed to interpret th is result as normal/abnormal . NRBC x10^3 (test code See_Comment [Auto mated = 8265846286) message] The s ystem which generated this result transmitted reference range : 10*3/?L. The reference range was not used to interpret this result as normal/abnormal . GRAN MAT (NEUT) % 65.0 % (test code = 770-8) IMM GRAN % (test code 0.20 % = 0406472686) LYMPH % (test code = 26.4 % 736-9) MONO % (test code = 6.4 % 5905-5) EOS % (test code = 1.7 % 713-8) BASO % (test code = 0.3 % 706-2) GRAN MAT x10^3(ANC) 4.13 10*3/uL 1.88-7.09 (test code = 4147056622) IMM GRAN x10^3 (test 0.00-0.06 code = 2247364472) LYMPH x10^3 (test code 1.68 10*3/uL 1.32-3.29 = 731-0) MONO x10^3 (test code 0.41 10*3/uL 0.33-0.92 = 742-7) EOS x10^3 (test code = 0.11 10*3/uL 0.03-0.39 711-2) BASO x10^3 (test code 0.01-0.07 = 704-7) Lab Interpretation Abnormal (test code = 17631-8) [facility] METABOLIC PANEL (NA, K, CL, CO2, GLUCOSE, BUN, CREATININE, CA)2022-10-13 12:15:43 Test Item Value Reference Range Interpretation Comments NA (test code = 134 mmol/L 135-145 L 4163234891) K (test code = 3.6 mmol/L 3.5-5.0 7963285999) CL (test code = 106 mmol/L 98-108 9674706535) CO2 TOTAL (test code = 21 mmol/L 23-31 L 8618937290) AGAP (test code = 7 2-16 2377282342) BUN (test code = 7 mg/dL 7-23 8269193375) GLUCOSE (test code = 111 mg/dL 70-110 H 6770824800) CREATININE (test code = 0.42 mg/dL 0.50-1.04 L 2558504429) CALCIUM (test code = 8.2 mg/dL 8.6-10.6 L 1192834890) eGFR (test code = 185.4 mL/min/1.73m2 7264507035) BAN (test code = BAN) Association of [...] tests). Lab Interpretation Abnormal (test code = 01036-1) [facility] WITH [id number] 11:51:57 Test Item Value Reference Range Interpretation Comments WBC (test code = 5.74 See_Comment [Automated 6690-2) message] The sy stem which generated this result transmitted reference range : 4.30 - 11.10 10*3/?L. The reference range was not used to interpret this result as normal/abnormal . RBC (test code = 3.97 See_Comment [Automated 789-8) message] The sy stem [...] RDW-SD (test code = 39.8 fL 39.0-49.9 70291-3) RDW-CV (test code = 12.0 % 12.0-15.5 788-0) PLT (test code = 291 See_Comment [Automated 777-3) message] The sy stem which generated this result transmitted reference range : 166 - 358 10*3/ ?L. The reference r amy was not used to interpret this result as normal/abnormal . MPV (test code = 9.0 fL 9.5-12.9 L 61199-4) NRBC/100 WBC (test 0.0 See_Comment [Automat ed code = 4038393764) message] The system which generated this result transmitted reference range : 0.0 - 10.0 /100 WBCs. The refer ence range was not u sed to interpret th is result as normal/abnormal . NRBC x10^3 (test code See_Comment [Auto mated = 9387247701) message] The s ystem which generated this result transmitted reference range : 10*3/?L. The reference range was not used to interpret this result as normal/abnormal . GRAN MAT (NEUT) % 61.5 % (test code = 770-8) IMM GRAN % (test code 0.30 % = 2027459193) LYMPH % (test code = 28.2 % 736-9) MONO % (test code = 8.2 % 5905-5) EOS % (test code = 1.6 % 713-8) BASO % (test code = 0.2 % 706-2) GRAN MAT x10^3(ANC) 3.53 10*3/uL 1.88-7.09 (test code = 1469282669) IMM GRAN x10^3 (test 0.00-0.06 code = 0021378379) LYMPH x10^3 (test code 1.62 10*3/uL 1.32-3.29 = 731-0) MONO x10^3 (test code 0.47 10*3/uL 0.33-0.92 = 742-7) EOS x10^3 (test code = 0.09 10*3/uL 0.03-0.39 711-2) BASO x10^3 (test code 0.01-0.07 = 704-7) Lab Interpretation Abnormal (test code = 24547-5) [facility] METABOLIC PANEL (NA, K, CL, CO2, GLUCOSE, BUN, CREATININE, CA)2022-10-12 21:00:50 Test Item Value Reference Range Interpretation Comments NA (test code = 137 mmol/L 135-145 6628432736) K (test code = 3.8 mmol/L 3.5-5.0 0508948649) CL (test code = 102 mmol/L 98-108 8277688858) CO2 TOTAL (test code = 26 mmol/L 23-31 3417930077) AGAP (test code = 9 2-16 7661481169) BUN (test code = 8 mg/dL 7-23 6800074919) GLUCOSE (test code = 115 mg/dL 70-110 H 6282671392) CREATININE (test code = 0.47 mg/dL 0.50-1.04 L 5811389493) CALCIUM (test code = 8.5 mg/dL 8.6-10.6 L 3987674399) eGFR (test code = 162.8 mL/min/1.73m2 8998795853) BAN (test code = BAN) Association of [...] tests). Lab Interpretation Abnormal (test code = 96725-0) [facility] WITH [id number] 20:43:49 Test Item Value Reference Range Interpretation Comments WBC (test code = 8.90 See_Comment [Automated 9506-2) message] The sy stem which generated this result transmitted reference range : 4.30 - 11.10 10*3/?L. The reference range was not used to interpret this result as normal/abnormal . RBC (test code = 4.47 See_Comment [Automated 046-3) message] The sy stem which generated this [...] RDW-SD (test code = 40.1 fL 39.0-49.9 46208-5) RDW-CV (test code = 12.1 % 12.0-15.5 788-0) PLT (test code = 359 See_Comment H [Automated 777-3) message] The sy stem which generated this result transmitted reference range : 166 - 358 10*3/ ?L. The reference r amy was not used to interpret this result as normal/abnormal . MPV (test code = 9.0 fL 9.5-12.9 L 88117-6) NRBC/100 WBC (test 0.0 See_Comment [Automat ed code = 0874595315) message] The system which generated this result transmitted reference range : 0.0 - 10.0 /100 WBCs. The refer ence range was not u sed to interpret th is result as normal/abnormal . NRBC x10^3 (test code See_Comment [Auto mated = 0861969171) message] The s ystem which generated this result transmitted reference range : 10*3/?L. The reference range was not used to interpret this result as normal/abnormal . GRAN MAT (NEUT) % 82.5 % (test code = 770-8) IMM GRAN % (test code 0.20 % = 2596216553) LYMPH % (test code = 11.7 % 736-9) MONO % (test code = 5.3 % 5905-5) EOS % (test code = 0.1 % 713-8) BASO % (test code = 0.2 % 706-2) GRAN MAT x10^3(ANC) 7.34 10*3/uL 1.88-7.09 H (test code = 0857181042) IMM GRAN x10^3 (test 0.00-0.06 code = 2275766369) LYMPH x10^3 (test code 1.04 10*3/uL 1.32-3.29 L = 731-0) MONO x10^3 (test code 0.47 10*3/uL 0.33-0.92 = 742-7) EOS x10^3 (test code = 0.03-0.39 L 711-2) BASO x10^3 (test code 0.01-0.07 = 704-7) Lab Interpretation Abnormal (test code = 85116-3) [facility] URINALYSIS W/O SPECIFIC [id number] 21:51:00 Test Item Value Reference Range Interpretation [...] code = 3257) 250 Negative - Negative [facility] URINALYSIS W/O SPECIFIC [id number] 21:51:00 Test Item Value Reference Range Interpretation [...] [facility] SPEC[facility] [id number] 21:51:00 Test Item Value Reference Range Interpretation [...] code = 3257) 250 Negative - Negative [facility] [id number] 21:51:00 Test Item Value Reference Range Interpretation [...] code = 3257) 250 Negative - Negative [facility] (09986)2022-06-22 20:03:18 Test Item Value Reference Range Interpretation Comments NA (test code = 136 mmol/L 135-145 3600263803) K (test code = 4.1 mmol/L 3.5-5.0 8327274176) CL (test code = 104 mmol/L 98-108 2259003544) CO2 TOTAL (test code = 24 mmol/L 23-31 6942956182) AGAP (test code = 8 2-16 6958232763) BUN (test code = 11 mg/dL 7-23 8651024747) GLUCOSE (test code = 96 mg/dL 70-110 8274369755) CREATININE (test code = 0.47 mg/dL 0.50-1.04 L 7627105224) TOTAL BILI (test code = 0.6 mg/dL 0.1-1.8 9722375261) CALCIUM (test code = 8.7 mg/dL 8.6-10.6 9204002038) T PROTEIN (test code = 7.2 g/dL 6.3-8.2 0274856612) ALBUMIN (test code = 4.4 g/dL 3.5-5.0 3801595902) ALK PHOS (test code = 77 U/L 34-122 1280873415) ALTv (test code = 14 U/L 1742-6) AST(SGOT) (test code = 18 U/L 13-40 5579899649) eGFR (test code = 162.8 mL/min/1.73m2 6897647029) BAN (test code = BAN) Association of [...] tests). Lab Interpretation Abnormal (test code = 46152-7) [facility] 20:03:18 Test Item Value Reference Range Interpretation Comments LIPASE (test code = 1305673818) 56 U/L 0-220 Lab Interpretation (test code = Normal 35853-2) [facility] WITH [id number] 19:45:15 Test Item Value Reference Range Interpretation Comments WBC (test code = 7.23 See_Comment [Kewacffif 0377-2) message] The sy stem which generated this [...] (test code = 38.4 fL 39.0-49.9 L 94925-5) RDW-CV (test code = 11.6 % 12.0-15.5 L 788-0) PLT (test code = 339 See_Comment [Automated 777-3) message] The sy stem which generated this result transmitted reference range : 166 - 358 10*3/ ?L. The reference r amy was not used to interpret this result as normal/abnormal . MPV (test code = 9.4 fL 9.5-12.9 L 53033-7) NRBC/100 WBC (test 0.0 See_Comment [Automat ed code = [id number]) message] The system which generated this result transmitted reference range : 0.0 - 10.0 /100 WBCs. The refer ence range was not u sed to interpret th is result as normal/abnormal . NRBC x10^3 (test code See_Comment [Auto mated = [id number]) message] The s ystem which generated this result transmitted reference range : 10*3/?L. The reference range was not used to interpret this result as normal/abnormal . GRAN MAT (NEUT) % 68.6 % (test code = 770-8) IMM GRAN % (test code 0.10 % = [id number]) LYMPH % (test code = 23.2 % 736-9) MONO % (test code = 5.8 % 5905-5) EOS % (test code = 1.9 % 713-8) BASO % (test code = 0.4 % 706-2) GRAN MAT x10^3(ANC) 4.95 10*3/uL 1.88-7.09 (test code = [id number]) IMM GRAN x10^3 (test 0.00-0.06 code = [id number]) LYMPH x10^3 (test code 1.68 10*3/uL 1.32-3.29 = 731-0) MONO x10^3 (test code 0.42 10*3/uL 0.33-0.92 = 742-7) EOS x10^3 (test code = 0.14 10*3/uL 0.03-0.39 711-2) BASO x10^3 (test code 0.03 10*3/uL 0.01-0.07 = 704-7) Lab Interpretation Abnormal (test code = 07552-7) [facility] [id number] 19:37:28 Test Item Value Reference Range Interpretation Comments LACTIC ACID (test code = 1.10 mmol/L 0.50-2.20 [id number]) Lab Interpretation (test code = Normal 91638-4) [facility] [id number] 19:20:00 Test Item Value Reference Range Interpretation Comments POCT PREG TEST DATE (test 33110522 code = 3576) POCT PREG LOT # (test code = 3575) [id number] On board controls acceptable with C present Line (test code = 3574) POCT PREG (test code = 1605) negative Lab Interpretation (test code = Normal 86669-7) [facility] URINALYSIS W/O SPECIFIC [id number] 22:35:00 Test Item Value Reference Range Interpretation [...] code = 3257) neg Negative - Negative [facility] URINALYSIS W/O SPECIFIC [id number] 22:35:00 Test Item Value Reference Range Interpretation [...] code = 3257) neg Negative - Negative [facility] [id number] 20:03:00 Test Item Value Reference Range Interpretation Comments POCT PREG (test code = Negative 1605) On board controls Yes acceptable with C Line (test code = 3574) POCT PREG LOT # (test code = 3575) POCT PREG TEST DATE (test code = 3576) BAN (test code = BAN) accurate development and interpretation of all internal controls Lab Interpretation Normal (test code = 95074-4) [facility] [id number] 20:03:00 Test Item Value Reference Range Interpretation Comments POCT PREG (test code = Negative 1605) On board controls Yes acceptable with C Line (test code = 3574) POCT PREG LOT # (test code = 3575) POCT PREG TEST DATE (test code = 3576) BAN (test code = BAN) accurate development and interpretation of all internal controls Lab Interpretation Normal (test code = 60695-3) [facility] [id number] 20:03:00 Test Item Value Reference Range Interpretation Comments POCT PREG (test code = Negative 1605) On board controls Yes acceptable with C Line (test code = 3574) POCT PREG LOT # (test code = 3575) POCT PREG TEST DATE (test code = 3576) BAN (test code = BAN) accurate development and interpretation of all internal controls Lab Interpretation Normal (test code = 37138-5) [facility] [id number] 20:03:00 Test Item Value Reference Range Interpretation Comments POCT PREG (test code = Negative 1605) On board controls Yes acceptable with C Line (test code = 3574) POCT PREG LOT # (test code = 3575) POCT PREG TEST DATE (test code = 3576) BAN (test code = BAN) accurate development and interpretation of all internal controls Lab Interpretation Normal (test code = 82640-2) [facility] URINALYSIS W SPECIFIC [id number] 19:03:00 Test Item Value Reference Range Interpretation [...] controls Lab Interpretation Abnormal (test code = 49630-0) [facility] URINALYSIS W SPECIFIC [id number] 19:03:00 Test Item Value Reference Range Interpretation [...] controls Lab Interpretation Abnormal (test code = 50908-4) [facility] URINALYSIS W SPECIFIC [id number] 19:03:00 Test Item Value Reference Range Interpretation [...] controls Lab Interpretation Abnormal (test code = 92627-5) [facility] URINALYSIS W SPECIFIC [id number] 19:03:00 Test Item Value Reference Range Interpretation [...] controls Lab Interpretation Abnormal (test code = 05430-5) [facility] URINALYSIS W SPECIFIC [id number] 22:54:00 Test Item Value Reference Range Interpretation [...] controls Lab Interpretation Abnormal (test code = 03081-2) [facility] URINALYSIS W SPECIFIC [id number] 22:54:00 Test Item Value Reference Range Interpretation [...] controls Lab Interpretation Abnormal (test code = 37397-9) [facility] [id number] 22:54:00 Test Item Value Reference Range Interpretation [...] controls Lab Interpretation Abnormal (test code = 47607-2) [facility]"
--- NOTE | 2023-01-07 21:21 | RAD REPORT ---
EXAM DESCRIPTION: CT - Abdomen Pelvis W Contrast - 01/07/2023 9:00 pm CLINICAL HISTORY: Abdominal pain COMPARISON: September 2022 TECHNIQUE: Computed axial tomography of the abdomen pelvis was obtained. 95 cc Isovue-300 was admini stered intravenously. Oral contrast was not requested which limits evaluation of bowel and appendix All CT scans are performed using dose optimization technique as appropriate and may include automated exposure control or mA/KV adjustment according to patient size. FINDINGS: The liver, spleen, pancreas, adrenal and kidneys appear unremarkable. There is no evidence of diverticulitis. There are several markedly dilated loops small bowel within the right abdomen. Largest measures 6.5 c entimeters. This may indicate a closed loop obstruction. Colon is decompressed. Normal appendix. No free air. IMPRESSION: High-grade mechanical small bowel obstruction. It may be closed-loop secondary to adhesi ons
[2023-01-07] MEDS ORDERED: ONDANSETRON 4 MG/2 ML VIAL ONE (21:47)
[2023-01-07] MEDS ORDERED: MORPHINE 4 MG/ML SYR ONE (21:47)
[2023-01-07] MEDS ORDERED: NA CHLORIDE 0.9% 1,000 ML ONE (21:48)
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
[2023-01-07 22:04] LABS: Absolute Lymphocytes (CBC) 1.4 K/uL (0.7-4.9); Hematocrit 43.6 % (36.0-45.0); Lymphocytes % 14.1 % (15.3-44.8); MCV 88.5 fL (80-100); MPV 7.2 fL (7.6-11.3); Platelets 392 thou/uL (152-406); RBC Red Blood Cell Count 4.92 M/uL (3.86-4.86)
[2023-01-07 22:22] LABS: Albumin 4.1 g/dL (3.4-5.0); Bilirubin Total 0.6 mg/dL (0.2-1.0); Potassium 3.7 mEq/L (3.5-5.1)
[2023-01-08 00:17] VITALS: TEMP 98
[2023-01-08 00:19] VITALS: BP 137/91; O2SAT 95
== END 2023-01-07 23:39 | disposition short-term general hospital (02) ==
LOC: ER 20:00
DX: K56.699 Other intestinal obstruction unspecified as to partial versus complete obstruction (principal)
CPT/HCPCS: 85025; 36415; 80053; 74177; 96375; 96374; 99284; Q9967; J2405; J7030